=== PATIENT | female | born 1945 | race Asian ===

== ENCOUNTER 2016-06-07 10:18 | Outpatient (RCR) | payer OTHER ==
--- OUTSIDE RECORDS SUMMARY | 2016-03-29 08:52 | XMS REPORT | Continuity of Care Document ---
Author Author [facility] Organization [facility] Address Unknown Phone Unavailable Care Team Providers Care Surveyor Geophysical Prospecting Name Role Phone MANUEL CARVER MD PCP Insurance Providers Payer Name Policy Number Subscriber Name Relationship Self Pay Pending Linnea Apprv [id number] Anayeli Taylor 20 Self / Same As Patient Advance Directives Directive Response Recorded Date/Time Advance Directives Yes 12/04/14 9:20am Health Care Power of Wood Engraver Y son 12/04/14 9:20am Organ Donor No 12/04/14 9:20am Resuscitation Status Full Code 12/04/14 9:20am Problems No known problems or medical conditions. Medications Medication Dose Route Sig Days/Qty Instructions Order Date Discontinued Date Status Methimazole 10 Mg PO DAILY 10/16/14 Active Atenolol 25 Mg PO DAILY 10/16/14 Active Aspirin 81 Mg PO DAILY 10/16/14 Active Ranitidine Hcl 150 Mg PO TWICE A DAY 10/16/14 Active Timolol Maleate 1 Drop OU TWICE A DAY 10/16/14 Active Calcium Carbonate/Vitamin D3 1 Each PO DAILY 0 Qty 12/04/14 Active Lutein 20 Mg PO DAILY 0 Qty 12/04/14 Active Glucosa Short 2KCL/Chondroitin Short 1 Each PO DAILY 0 Qty 12/04/14 Active Social History Social History Problem Response Recorded Date/Time Alcohol Use Denies Use 12/04/2014 9:20am Recreational Drug Use No 12/04/2014 9:20am Recent Foreign Travel No 12/04/2014 9:20am Recent Infectious Disease Exposure No 12/04/2014 9:20am Hospitalization with Isolation Denies 12/04/2014 6:51pm Smoking Status Never a Smoker 12/04/2014 9:20am Query Response Start Date Stop Date Smoking Status Never a Smoker Hospital Discharge Instructions No hospital discharge instructions. Plan of Care No plan of care. Functional Status No functional status results. Allergies, Adverse Reactions, Alerts Allergen Type Severity Reaction Status Last Updated No Known Drug Allergies Active 10/16/14 Immunizations Name Given Type Date of Pneumonia Vaccine 04/27/11 Historical Vital Signs Acute Vital Signs Vital Response Date/Time Temperature (Fahrenheit) 97.8 degrees F (97.6 - 99.5) Temperature (Calculated Celsius) 36.01352 degrees C (36.4 - 37.5) Temperature Source Temporal Pulse Rate (adult) 66 bpm (60 - 90) Respiratory Rate 18 bpm (12 - 24) O2 Sat by Pulse Oximetry 94 % (88 - 100) Blood Pressure 153/79 mm Hg Pain Pain Intensity 1 Height (Feet) 5 feet Height (Inches) 5.00 inches Height (Calculated Centimeters) 165.673781 cm Weight (Pounds) 151 pounds Weight (Calculated Grams) 27958.449 gm Weight (Calculated Kilograms) 68.445339 kilograms Calculated BMI 25.12 Results No known relevant diagnostic tests, laboratory data and/or discharge summary. Procedures Procedure Status Date Provider(s) NEEDLE BIOPSY LYMPH NODES completed 11/11/14 VICKY VAZQUEZ MD Dissection of inguinal lymph node completed 12/04/14 FATEMEH PAYNE MD Encounters Encounter Location Date/Time Registered Surgical Day [facility] 12/04/14 9:04am Registered Clinic [facility] 11/11/14 12:37pm Registered Clinic [facility] 11/05/14 7:41am
[2016-03-29 09:26] LABS: BASOPHILS % (AUTO) 0 % (0-10); EOSINOPHILS # (AUTO) 0.1 10^3/uL (0.0-0.3); EOSINOPHILS % (AUTO) 2 % (0-10); LYMPHOCYTES # (AUTO) 1.4 X 10^3 (1.0-4.0); LYMPHOCYTES % (AUTO) 21 % (12-44); MEAN CORPUSCULAR HEMOGLOBIN 29 PG (25-34); MEAN CORPUSCULAR HGB CONC 34 G/DL (32-36); MEAN CORPUSCULAR VOLUME 83 FL (80-99); MEAN PLATELET VOLUME 9.8 FL (7.4-10.4); MONOCYTES # (AUTO) 0.6 X 10^3 (0.0-1.0); MONOCYTES % (AUTO) 9 % (0-12); NEUTROPHILS # (AUTO) 4.5 X 10^3 (1.8-7.8); NEUTROPHILS % (AUTO) 68 % (42-75); PLATELET COUNT 182 10^3/uL (130-400); RED BLOOD COUNT 4.97 10^6/uL (4.35-5.85); RED CELL DISTRIBUTION WIDTH 13.4 % (10.0-14.5); WHITE BLOOD COUNT 6.6 10^3/uL (4.3-11.0)
[2016-03-29 10:06] LABS: ALBUMIN 4.1 G/DL (3.2-4.5); BILIRUBIN,TOTAL 1.8 MG/DL (0.1-1.0); CALCIUM 9.2 MG/DL (8.5-10.1); CREATININE SERUM 1.03 MG/DL (0.60-1.30); POTASSIUM 3.8 MMOL/L (3.6-5.0); TOTAL PROTEIN 7.4 G/DL (6.4-8.2)
--- NOTE | 2016-03-29 10:14 | Diagnostic Imaging Report ---
INDICATION: History of lung cancer. Compared 01/13/2016. FINDINGS: Air trapping and nodular interstitial opacities bilaterally showed no change from multiple previous studies, believed scarring. A dominant mass or mass effect is not found. Hilar and mediastinal contours unremarkable. No effusion or pneumothorax. IMPRESSION: Somewhat nodular pattern of interstitial disease in this patient is unchanged from multiple priors, presumptively chronic. Dominant mass or change is not apparent. Dictated by: Dictated on workstation # [id number]
[2016-06-01 08:54] LABS: BASOPHILS % (AUTO) 0 % (0-10); EOSINOPHILS # (AUTO) 0.1 10^3/uL (0.0-0.3); EOSINOPHILS % (AUTO) 2 % (0-10); LYMPHOCYTES # (AUTO) 1.1 X 10^3 (1.0-4.0); LYMPHOCYTES % (AUTO) 18 % (12-44); MEAN CORPUSCULAR HEMOGLOBIN 29 PG (25-34); MEAN CORPUSCULAR HGB CONC 35 G/DL (32-36); MEAN CORPUSCULAR VOLUME 84 FL (80-99); MEAN PLATELET VOLUME 9.7 FL (7.4-10.4); MONOCYTES # (AUTO) 0.6 X 10^3 (0.0-1.0); MONOCYTES % (AUTO) 10 % (0-12); NEUTROPHILS # (AUTO) 4.1 X 10^3 (1.8-7.8); NEUTROPHILS % (AUTO) 70 % (42-75); PLATELET COUNT 192 10^3/uL (130-400); RED BLOOD COUNT 4.64 10^6/uL (4.35-5.85); RED CELL DISTRIBUTION WIDTH 13.5 % (10.0-14.5); WHITE BLOOD COUNT 5.9 10^3/uL (4.3-11.0)
[2016-06-01 09:40] LABS: ALANINE AMINOTRANSFERASE 11 U/L (0-55); ANION GAP 6 MMOL/L (5-14); ASPARTATE AMINO TRANSFERASE 18 U/L (5-34); BILIRUBIN,TOTAL 1.3 MG/DL (0.1-1.0); BLOOD UREA NITROGEN 18 MG/DL (7-18); BUN/CREATININE RATIO 21; CALCIUM 8.9 MG/DL (8.5-10.1); CARBON DIOXIDE 27 MMOL/L (21-32); CHLORIDE 108 MMOL/L (98-107); CREATININE SERUM 0.86 MG/DL (0.60-1.30); GFR ESTIMATED > 60; GLUCOSE 84 MG/DL (70-105); POTASSIUM 3.9 MMOL/L (3.6-5.0); SODIUM 141 MMOL/L (135-145)
[~2016-06-07 10:18] MED LIST: ASPI-892 PO; ATEN-147 PO; CALC-140 PO; GLUC-113 PO; GLUC-96 PO; LUTE20TA PO; NF-METHI10 PO; RANI150C11 PO; TML25OP25 OU
== END 2016-06-27 | disposition home or self-care (01) ==
LOC: ONC 10:18
PROVIDERS: ATTEND Internal Medicine Hematology & Oncology
DX: C34.81 Malignant neoplasm of overlapping sites of right bronchus and lung (principal); E05.00 Thyrotoxicosis with diffuse goiter without thyrotoxic crisis or storm; Z79.899 Other long term (current) drug therapy; Z23 Encounter for immunization
CPT/HCPCS: 36415; 71020; 80053; 85025; 90471; 99213

== ENCOUNTER → 2016-07-05 | Outpatient (CLI) | payer OTHER ==
--- OUTSIDE RECORDS SUMMARY | 2016-07-05 08:25 | XMS REPORT | Continuity of Care Document ---
Author Author [facility] Organization [facility] Address Unknown Phone Unavailable Care Team Providers Care Truck Service Technician Name Role Phone MANUEL CARVER MD PCP Insurance Providers Payer Name Policy Number Subscriber Name Relationship Self Pay Approved Full Linnea [id number] Anayeli Quintana 20 Self / Same As Patient Advance Directives Directive Response Recorded Date/Time Advance Directives Yes 12/12/14 1:30pm Health Care Power of Director Of Medical Education Y son 12/12/14 1:30pm Organ Donor No 12/12/14 1:30pm Problems No problem information available. Medications Current Home Medications Medication Dose Units Route Directions Days/Qty Instructions Start Date Methimazole 10 Mg 10 Mg Oral Daily 10/16/14 Atenolol 25 Mg 25 Mg Oral Daily 10/16/14 Ranitidine Hcl 150 Mg 150 Mg Oral Twice A Day 10/16/14 Timolol Maleate 15 Ml 1 Drop Each Eye Twice A Day 10/16/14 Calcium Carbonate/Vitamin D3 1 Each 1 Each Oral Daily 0 12/04/14 Lutein 20 Mg 20 Mg Oral Daily 0 12/04/14 Glucosa Short 2KCL/Chondroitin Short 1 Each 1 Each Oral Daily 0 12/04/14 Past Home Medications Medication Directions Ordered Status Aspirin 81 Mg Tabec, 81 Mg Oral Daily 10/16/14 Discontinued Social History Social History Problem Response Recorded Date/Time Alcohol Use Denies Use 12/04/2014 9:20am Recreational Drug Use No 12/04/2014 9:20am Recent Foreign Travel No 06/09/2016 12:39pm Hospital Discharge Instructions Current inpatient/outpatient. Discharge instructions are currently unavailable. Plan of Care Prescriptions Functional Status No functional status results. Allergies, Adverse Reactions, Alerts No known allergies. Immunizations No immunization records. Vital Signs No known vital signs results. Results Laboratory Results Test Name Result Units Flags Reference Collection Date/Time Result Date/ Time Comments White Blood Count 5.9 10^3/uL 4.3-11.0 06/01/2016 8:46am 06/01/2016 8: 56am Red Blood Count 4.64 10^6/uL 4.35-5.85 06/01/2016 8:46am 06/01/2016 8: 56am Hemoglobin 13.4 G/DL 11.5-16.0 06/01/2016 8:46am 06/01/2016 8:56am Hematocrit 39 % 35-52 06/01/2016 8:46am 06/01/2016 8:56am Mean Corpuscular Volume 84 FL 80-99 06/01/2016 8:46am 06/01/2016 8: 56am Mean Corpuscular Hemoglobin 29 PG 25-34 06/01/2016 8:46am 06/01/2016 8: 56am Mean Corpuscular Hemoglobin Concent 35 G/DL 32-36 06/01/2016 8:46am 11/2015 8:56am Red Cell Distribution Width 13.5 % 10.0-14.5 06/01/2016 8:46am 2015 8:56am Platelet Count 192 10^3/uL 130-400 06/01/2016 8:46am 06/01/2016 8:56am Mean Platelet Volume 9.7 FL 7.4-10.4 06/01/2016 8:46am 06/01/2016 8: 56am Neutrophils (%) (Auto) 70 % 42-75 06/01/2016 8:46am 06/01/2016 8:56am Lymphocytes (%) (Auto) 18 % 12-44 06/01/2016 8:46am 06/01/2016 8:56am Monocytes (%) (Auto) 10 % 0-12 06/01/2016 8:46am 06/01/2016 8:56am Eosinophils (%) (Auto) 2 % 0-10 06/01/2016 8:46am 06/01/2016 8:56am Basophils (%) (Auto) 0 % 0-10 06/01/2016 8:46am 06/01/2016 8:56am Neutrophils # (Auto) 4.1 X 10^3 1.8-7.8 06/01/2016 8:46am 06/01/2016 8: 56am Lymphocytes # (Auto) 1.1 X 10^3 1.0-4.0 06/01/2016 8:46am 06/01/2016 8: 56am Monocytes # (Auto) 0.6 X 10^3 0.0-1.0 06/01/2016 8:46am 06/01/2016 8: 56am Eosinophils # (Auto) 0.1 10^3/uL 0.0-0.3 06/01/2016 8:46am 06/01/2016 8 :56am Basophils # (Auto) 0.0 10^3/uL 0.0-0.1 06/01/2016 8:46am 06/01/2016 8: 56am Sodium Level 141 MMOL/L 135-145 06/01/2016 8:46am 06/01/2016 9:41am Potassium Level 3.9 MMOL/L 3.6-5.0 06/01/2016 8:46am 06/01/2016 9:41am Chloride Level 108 MMOL/L H 98-107 06/01/2016 8:46am 06/01/2016 9:41am Carbon Dioxide Level 27 MMOL/L 21-32 06/01/2016 8:46am 06/01/2016 9: 41am Anion Gap 6 MMOL/L 5-14 06/01/2016 8:46am 06/01/2016 9:41am Blood Urea Nitrogen 18 MG/DL 7-18 06/01/2016 8:46am 06/01/2016 9:41am Creatinine 0.86 MG/DL 0.60-1.30 06/01/2016 8:46am 06/01/2016 9:41am BUN/Creatinine Ratio 21 06/01/2016 8:46am 06/01/2016 9:41am Estimat Glomerular Filtration Rate > 60 06/01/2016 8:46am 2015 9:41am GFR INTERPRETIVE DATA UNITS FOR ESTIMATED GFR (eGFR): mL/min/1.73 M2 REFERENCE RANGE FOR ESTIMATED GFR (eGFR) eGFR NORMAL eGFR >60 MODERATELY DECREASED eGFR 30-59 SEVERLY DECREASED eGFR 15-29 KIDNEY FAILURE <15 (OR DIALYSIS) Glucose Level 84 MG/DL 70-105 06/01/2016 8:46am 06/01/2016 9:41am Calcium Level 8.9 MG/DL 8.5-10.1 06/01/2016 8:46am 06/01/2016 9:41am Total Bilirubin 1.3 MG/DL H 0.1-1.0 06/01/2016 8:46am 06/01/2016 9:41am Alkaline Phosphatase 80 U/L 40-136 06/01/2016 8:46am 06/01/2016 9:41am Aspartate Amino Transf (AST/SGOT) 18 U/L 5-34 06/01/2016 8:46am 2015 9:41am Alanine Aminotransferase (ALT/SGPT) 11 U/L 0-55 06/01/2016 8:46am 06/01 9:41am Total Protein 7.0 G/DL 6.4-8.2 06/01/2016 8:46am 06/01/2016 9:41am Albumin 4.0 G/DL 3.2-4.5 06/01/2016 8:46am 06/01/2016 9:41am Procedures No known history of procedures. Encounters Encounter Location Arrival/Admit Date Discharge/Depart Date Attending Provider Registered Clinic [facility] 06/09/16 12:41pm SANTIAGO GARZA Discharged Recurring [facility] 06/07/16 10:18am 11:59pm SANTIAGO GARZA Registered Clinic [facility] 06/04/16 11:00am MARTIN MUHAMMAD
== END ==
LOC: LAB 08:21
PROVIDERS: ATTEND Internal Medicine Endocrinology, Diabetes & Metabolism
DX: E05.00 Thyrotoxicosis with diffuse goiter without thyrotoxic crisis or storm (principal)
CPT/HCPCS: 36415; 84443

== ENCOUNTER → 2016-09-02 | Outpatient (CLI) | payer OTHER ==
[~2016-09-02] MED LIST changes: +BARIUM SUSPENSION 2.1% (VANILLA SILQ) 450 ML PO ONE; +CATHETER FLUSH 10 ML SYR IV PRN; +IOHEXOL 350 MG/ML 100 ML (OMNIPAQUE 350) VIAL IV ONE; +NS 100 ML (IVPB) BAG IV ONE
--- OUTSIDE RECORDS SUMMARY | 2016-09-02 10:30 | XMS REPORT | Continuity of Care Document ---
Author Author [facility] Organization [facility] Address Unknown Phone Unavailable Care Team Providers Care Chemist Food Name Role Phone MANUEL CARVER MD PCP Insurance Providers Payer Name Policy Number Subscriber Name Relationship Self Pay Approved Full Linnea [id number] Anayeli Quintana 20 Self / Same As Patient Advance Directives Directive Response Recorded Date/Time Advance Directives Yes 12/12/14 1:30pm Health Care Power of Lens Blank Gauger Y son 12/12/14 1:30pm Organ Donor No [...] Discharge/Depart Date Attending Provider Registered Clinic [facility] 06/09/16 12:41pm SANTIAGO GARZA Discharged Recurring [facility] 06/07/16 10:18am 11:59pm SANTIAGO GARZA Registered Clinic [facility] 06/04/16 11:00am MARTIN MUHAMMAD
[2016-09-02] MEDS: CATHETER FLUSH 10 ML SYR IV PRN ×2 (10:50→10:59)
--- NOTE | 2016-09-02 16:43 | Diagnostic Imaging Report ---
PROCEDURE: CT chest and abdomen with contrast. TECHNIQUE: Multiple contiguous axial images were obtained through the chest and abdomen after the administration of intravenous contrast. INDICATION: History of lung cancer. COMPARISON: Study compared with an exam dated 06/04/2016. FINDINGS: Chest: Bilateral lung nodularity has shown further progression. Adjacent nodules or bilobed mass in the right upper lobe abuts the pleura anterolaterally measuring a long axis 2.5 cm today, previously 2.1 cm. A right upper lobe mass just posterior to the right mainstem bronchus today is 3.2 x 2.1 cm, previously 2.4 x 2.0 cm. Additional smaller masses show similar increases in size and few new lesions are present. Sub-solid groundglass nodule in the left lower lobe with some central cavitation unchanged at 1.6 cm. We again note no pathological appearing axillary, hilar, or mediastinal lymph nodes. There are no pulmonary arterial filling defects. There is no pleural or pericardial effusion. There is no destructive soft tissue or osseous chest wall pathology. Abdomen and pelvis: Hyperenhancing nodule in the lateral sector left hepatic lobe measures a diameter of about 1.3 cm and is not convincingly changed. An additional questionable hyperenhancing nodule at the dynamic phase in the caudal aspect of the right lobe of the liver at 7 mm may be present retrospectively on prior and this may be a normal vascular channel. Cyst in the right hepatic lobe at the dome unchanged. No definite new hepatic disease. No biliary abnormality. The adrenal glands remain stable and negative. The pancreas has an unremarkable appearance. The unobstructed kidneys are normal. The nonfocal spleen remains normal in size. No abdominal mesenteric or retroperitoneal adenopathy. No abdominal ascites. IMPRESSION: Chest: Further increase in number and size of multiple bilateral pulmonary nodules without thoracic adenopathy, chest wall lesion, or effusion. Abdomen: Stable left hepatic lobe enhancing nodularity, questionable similar appearing focus in the right hepatic lobe inferiorly not definitely changed. These are of uncertain significance and etiology. Negative adrenals. No upper abdominal adenopathy. Stable benign liver cyst. Dictated by: Dictated on workstation # [id number]
--- NOTE | 2016-09-02 19:46 | Diagnostic Imaging Report ---
EXAMINATION: Whole body bone Scan. INDICATION: Lung cancer. TECHNIQUE: This study was performed following administration of 25.8 mCi of 99m-technetium MDP. Anterior and posterior whole body images were obtained as well as spot films of the skull and thorax. FINDINGS: The previous whole body bone scan exam performed on 06/04/2016 failed to show any sign of metastatic disease. On this exam, there is still no abnormal uptake identified to indicate metastatic disease. As noted on the prior study, there are small foci of slight increased activity in the region of each patella. Most likely, this is degenerative in nature. Both kidneys do show excretion of the radiotracer. IMPRESSION: The appearance of the bone scan is stable when compared to the prior exam. There is no evidence for metastatic disease or for an acute bony abnormality. Dictated by: Dictated on workstation # [id number]
== END ==
LOC: CARD 10:26
PROVIDERS: ATTEND Internal Medicine Hematology & Oncology
DX: C34.81 Malignant neoplasm of overlapping sites of right bronchus and lung (principal)
CPT/HCPCS: 71260; 74160; 78306

== ENCOUNTER 2016-09-16 09:01 | Day surgery (SDC) | payer OTHER ==
[~2016-09-16] VITALS: Ht 160 cm; Wt 69.9 kg
[2016-09-16] VITALS (15 sets, daily range): BP systolic 114–167; BP diastolic 55–84
[~2016-09-16 09:01] MED LIST changes: -BARIUM SUSPENSION 2.1% (VANILLA SILQ) 450 ML PO ONE; -CATHETER FLUSH 10 ML SYR IV PRN; -IOHEXOL 350 MG/ML 100 ML (OMNIPAQUE 350) VIAL IV ONE; -NS 100 ML (IVPB) BAG IV ONE
[2016-09-16] MEDS ORDERED: LIDOCAINE 1% INJ 20 ML (XYLOCAINE) VIAL ONE (09:36)
[2016-09-16] MEDS ORDERED: fentaNYL INJECTION 100 MCG/2 ML AMP ONE (09:36)
[2016-09-16 09:51] LABS: MEAN PLATELET VOLUME 10.1 FL (7.4-10.4); RED BLOOD COUNT 4.69 10^6/uL (4.35-5.85); RED CELL DISTRIBUTION WIDTH 13.6 % (10.0-14.5); WHITE BLOOD COUNT 7.1 10^3/uL (4.3-11.0)
[2016-09-16 10:05] LABS: PROTHROMBIN TIME PATIENT 12.8 SEC (12.2-14.7)
[2016-09-16] MEDS ORDERED: fentaNYL INJECTION 100 MCG/2 ML AMP IVP PRN (11:30)
[2016-09-16] MEDS ORDERED: LIDOCAINE 1% INJ 20 ML (XYLOCAINE) VIAL INJ ONE (11:30)
[2016-09-16] MEDS ORDERED: HYDROcodone/APAP 5 MG/325 MG (LORTAB) TAB PO PRN (11:30)
--- NOTE | 2016-09-16 11:40 | Discharge Instructions ---
Discharge Instructions Home Medicaitons Changes Hold any current blood thinner home medications for [24 hours]. VICKY VAZQUEZ MD Sep 16, 2016 11:40
--- NOTE | 2016-09-16 12:33 | Diagnostic Imaging Report ---
EXAMINATION: CT-guided biopsy-lung. INDICATION: multiple bilateral pulmonary nodules. Current history and physical and other medical records are reviewed prior to the procedure. CONSENT: Informed consent was obtained from the patient. The risks, benefits, potential complications and alternatives were reviewed and all questions answered to the patient's satisfaction. The patient's vital signs, cardiac rhythm, and pulse oximetry were observed throughout the procedure by qualified nursing personnel. Sedation/medications: none. FINDINGS: Right upper lobe enlarging nodule. PROCEDURE: After maximal sterile barrier technique preparation and draping, 1% lidocaine was utilized for local anesthesia. With the patient in supine position, and via anterior intercostal approach, a 19-gauge guide needle is introduced into the right upper lobe under CT scan guidance. After confirming adequate positioning with saved CT images, multiple 20 gauge core biopsy specimens were obtained. Autologous blood patch 3 cc injected in the tract as the guide needle was removed. The patient tolerated the procedure well with very small asymptomatic pneumothorax seen on post biopsy images. Chest x-ray follow up will be obtained. IMPRESSION: Successful CT-guided biopsy of right upper lobe enlarging nodule. Very small asymptomatic pneumothorax seen on post biopsy images. Chest x-ray follow up will be obtained. Dictated by: Dictated on workstation # [id number]
--- NOTE | 2016-09-16 13:45 | Diagnostic Imaging Report ---
Portable expiratory view of the chest. INDICATION: Post lung biopsy. History of metastatic lung cancer. FINDINGS: There are multiple lung masses and nodules seen with dominant right suprahilar region measuring 2.8 cm noted. There is increased surrounding density around the lesion probably related to postbiopsy changes. There is no pneumothorax. The heart size is mildly enlarged. No significant effusion. There is prominence of the right hilar region probably related to posterior perihilar mass better seen on CT scan. IMPRESSION: Numerous lung metastases. No pneumothorax. Dictated by: Dictated on workstation # [id number]
--- OUTSIDE RECORDS SUMMARY | 2016-09-19 08:34 | XMS REPORT | Continuity of Care Document ---
Author Author Via [facility] Organization [facility] Address Unknown Phone Unavailable Allergies Active Description Code Type Severity Reaction Onset Reported/Identified Relationship to Patient Clinical Status Yes No Known Drug Allergies [id number] Drug Allergy Unknown N/ A 10/16/2014 Medications Problems Date Dx Coded Attending Type Code Diagnosis Diagnosed By 10/16/2014 MANUEL CARVER MD Ot V76.12 10/16/2014 CHANEL TOMLINSON MD Ot 242.00 10/16/2014 CHANEL TOMLINSON MD Ot 401.9 10/16/2014 CHANEL TOMLINSON MD Ot 729.5 10/16/2014 CHANEL TOMLINSON MD Ot 785.1 10/16/2014 CHANEL TOMLINSON MD Ot 786.05 10/16/2014 CHANEL TOMLINSON MD Ot 786.09 10/16/2014 CHANEL TOMLINSON MD Ot V12.51 10/16/2014 CHANEL TOMLINSON MD Ot 242.00 10/16/2014 CHANEL TOMLINSON MD Ot 453.40 10/16/2014 CHANEL TOMLINSON MD Ot 785.1 10/16/2014 CHANEL TOMLINSON MD Ot 786.05 10/16/2014 CHANEL TOMLINSON MD Ot 242.00 10/16/2014 CHANEL TOMLINSON MD Ot 401.9 10/16/2014 CHANEL TOMLINSON MD Ot 729.5 10/16/2014 CHANEL TOMLINSON MD Ot 785.1 10/16/2014 CHANEL TOMLINSON MD Ot 786.05 10/16/2014 CHANEL TOMLINSON MD Ot 786.09 10/16/2014 CHANEL TOMLINSON MD Ot V12.51 10/16/2014 CHANEL TOMLINSON MD Ot 242.00 10/16/2014 CHANEL TOMLINSON MD Ot 453.40 10/16/2014 CHANEL TOMLINSON MD Ot 785.1 10/16/2014 CHANEL TOMLINSON MD Ot 786.05 10/16/2014 CHANEL TOMLINSON MD Ot 242.00 10/16/2014 CHANEL TOMLINSON MD Ot 453.40 10/16/2014 CHANEL TOMLINSON MD Ot 785.1 10/16/2014 CHANEL TOMLINSON MD Ot 786.05 10/16/2014 CHANEL TOMLINSON MD Ot 246.8 DISORDERS OF THYROID NEC 10/16/2014 CHANEL TOMLINSON MD Ot 414.01 CORONARY ATHEROSCLEROSIS OF [place] CORON 10/16/2014 CHANEL TOMLINSON MD Ot 416.8 CHR PULMON HEART DIS NEC 10/16/2014 CHANEL TOMLINSON MD Ot 427.69 PREMATURE BEATS NEC 10/16/2014 CHANEL TOMLINSON MD Ot 780.2 SYNCOPE AND COLLAPSE 10/16/2014 CHANEL TOMLINSON MD Ot 786.09 RESPIRATORY ABNORM NEC 10/16/2014 CHANEL TOMLINSON MD Ot V12.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 10/16/2014 CHANEL TOMLINSON MD Ot V58.69 [facility],LT,CURRENT USE 10/16/2014 MEHUL SMITH, MANUEL Amaral Ot V76.12 10/16/2014 CHANEL TOMLINSON MD Ot 242.00 10/16/2014 CHANEL TOMLINSON MD Ot 401.9 10/16/2014 CHANEL TOMLINSON MD Ot 729.5 10/16/2014 CHANEL TOMLINSON MD Ot 785.1 10/16/2014 CHANEL TOMLINSON MD Ot 786.05 10/16/2014 CHANEL TOMLINSON MD Ot 786.09 10/16/2014 CHANEL TOMLINSON MD Ot V12.51 10/16/2014 CHANEL TOMLINSON MD Ot 242.00 10/16/2014 CHANEL TOMLINSON MD Ot 453.40 10/16/2014 CHANEL TOMLINSON MD Ot 785.1 10/16/2014 CHANEL TOMLINSON MD Ot 786.05 10/16/2014 CHANEL TOMLINSON MD Ot 242.00 10/16/2014 CHANEL TOMLINSON MD Ot 401.9 10/16/2014 CHANEL TOMLINSON MD Ot 729.5 10/16/2014 DAVI SMITH, CHANEL Landin Ot 785.1 10/16/2014 DAVI SMITH, CHANEL Landin Ot 786.05 10/16/2014 DAVI SMITH, CHANEL Landin Ot 786.09 10/16/2014 DAVI SMITH, CHANEL Landin Ot V12.51 10/16/2014 DAVI SMITH, CHANEL Landin Ot 242.00 10/16/2014 DAVI SMITH, CHANEL Landin Ot 453.40 10/16/2014 DAVI SMITH, CHANEL Landin Ot 785.1 10/16/2014 DAVI SMITH, CHANEL Landin Ot 786.05 11/07/2014 KAYLIE HAMPTON DO M Ot 162.9 11/07/2014 MEHLU SMITH, MANUEL Amaral Ot V76.12 11/07/2014 DAVI SMITH, CHANEL Landin Ot 242.00 11/07/2014 DAVI SMITH, CHANEL Landin Ot 401.9 11/07/2014 DAVI SMITH, CHANEL Landin Ot 729.5 11/07/2014 DAVI SMITH, CHANEL Landin Ot 785.1 11/07/2014 DAVI SMITH, CHANEL Landin Ot 786.05 11/07/2014 DAVI SMITH, CHANEL Landin Ot 786.09 11/07/2014 DAVI SMITH, CHANEL Landin Ot V12.51 11/07/2014 DAVI SMITH, CHANEL Landin Ot 242.00 11/07/2014 DAVI SMITH, CHANEL Landin Ot 453.40 11/07/2014 DAVI SMITH, CHANEL Landin Ot 785.1 11/07/2014 ADVI SMITH, CHANEL Landin Ot 786.05 11/07/2014 KAYLIE HAMPTON DO M Ot 416.8 11/07/2014 DALILA HAMPTON DOSON M Ot 453.40 11/07/2014 DALILA HAMPTON DOSON M Ot 786.05 11/07/2014 DALILA HAMPTON DOSON M Ot 793.19 11/07/2014 DALILA HAMPTON DOSON M Ot 162.9 11/15/2014 DALILA HAMPTON DOSON M Ot 786.05 11/15/2014 KAYLIE HAMPTON DO M Ot 786.6 11/27/2014 MEHUL SMITH, MANUEL Amaral Ot V76.12 11/27/2014 DAVI SMITH, CHANEL Landin Ot 242.00 11/27/2014 CHANEL TOMLINSON MD Ot 401.9 11/27/2014 DAVI SMITH, CHANEL Landin Ot 729.5 11/27/2014 DAVI SMITH, CHANEL Landin Ot 785.1 11/27/2014 DAVI SMITH, CHANEL Landin Ot 786.05 11/27/2014 DAVI SMITH, CHANEL Landin Ot 786.09 11/27/2014 DAVI SMITH, CHANEL Landin Ot V12.51 11/27/2014 DAVI SMITH, CHANEL Landin Ot 242.00 11/27/2014 DAVI SMITH, CHANEL Landin Ot 453.40 11/27/2014 DAVI SMITH, CHANEL Landin Ot 785.1 11/27/2014 DAVI SMITH, CHANEL Landin Ot 786.05 11/27/2014 KAYLIE HAMPTON DO Ot 416.8 11/27/2014 KAYLIE HAMPTON DO M Ot 453.40 11/27/2014 KAYLIE HAMPTON DO M Ot 786.05 11/27/2014 KAYLIE HAMPTON DO M Ot 793.19 11/27/2014 KAYLIE HAMPTON DO M Ot 162.9 11/27/2014 DALILA HAMPTON DOSON M Ot 786.05 11/27/2014 DALILA HAMPTON DOSON M Ot 786.6 12/02/2014 DALILA HAMPTON DOSON M Ot 786.05 12/02/2014 KAYLIE HAMPTON DO M Ot 786.6 12/03/2014 DALILA HAMPTON DOSON M Ot 786.05 12/03/2014 DALILA HAMPTON DOSON M Ot 786.6 12/04/2014 MANUEL CARVER MD Ot V76.12 12/04/2014 DAVI MSITH, CHANEL Landin Ot 242.00 12/04/2014 DAVI SMITH, CHANEL Landin Ot 401.9 12/04/2014 DAVI SMITH, CHANEL Landin Ot 729.5 12/04/2014 DAVI SMITH, CHANEL Landin Ot 785.1 12/04/2014 DAVI SMITH, CHANEL Landin Ot 786.05 12/04/2014 DAVI SMITH, CHANEL Landin Ot 786.09 12/04/2014 DAVI SMITH, CHANEL Landin Ot V12.51 12/04/2014 DAVI SMITH, CHANEL Landin Ot 242.00 12/04/2014 DAVI SMITH, CHANEL Landin Ot 453.40 12/04/2014 DAVI SMITH, CHANEL Landin Ot 785.1 12/04/2014 DAVI SMITH, CHANEL J Ot 786.05 12/04/2014 MEMO DO, KAYLIE M Ot 416.8 12/04/2014 MEMO DO, KAYLIE M Ot 453.40 12/04/2014 MEMO DO, KAYLIE M Ot 786.05 12/04/2014 MEMO DO, KAYLIE M Ot 793.19 12/04/2014 MEMO DO, KAYLIE M Ot 162.9 12/04/2014 MEMO DO, KAYLIE M Ot 786.05 12/04/2014 MEMO DO, KAYLIE M Ot 786.6 12/04/2014 MEHUL SMITH, MANUEL Amaral Ot V76.12 12/04/2014 DAVI SMITH, CHANEL J Ot 242.00 12/04/2014 DAVI SMITH, CHANEL J Ot 401.9 12/04/2014 DAVI SMITH, CHANEL J Ot 729.5 12/04/2014 DAVI SMITH, CHANEL J Ot 785.1 12/04/2014 DAVI SMITH, CHANEL J Ot 786.05 12/04/2014 DAVI SMITH, CHANEL J Ot 786.09 12/04/2014 DAVI SMITH, CHANEL J Ot V12.51 12/04/2014 DAVI SMITH, CHANEL J Ot 242.00 12/04/2014 DAVI SMITH, CHANEL J Ot 453.40 12/04/2014 DAVI SMITH, CHANEL J Ot 785.1 12/04/2014 DAVI SMITH, CHANEL J Ot 786.05 12/04/2014 MEMO DO, KAYLIE M Ot 416.8 12/04/2014 MEMO DO, KAYLIE M Ot 453.40 12/04/2014 MEMO DO, KAYLIE M Ot 786.05 12/04/2014 MEMO DO, KAYLIE M Ot 793.19 12/04/2014 MEMO DO, KAYLIE M Ot 162.9 12/04/2014 MEMO DO, KAYLIE M Ot 786.05 12/04/2014 MEMO DO, KAYLIE M Ot 786.6 12/04/2014 ELMER SMITH, FATEMEH Lawrence Ot 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 12/10/2014 MEHUL SMITH, MANUEL Amaral Ot V76.12 12/10/2014 DAVI SMITH, CHANEL Landin Ot 242.00 12/10/2014 DAVI SMITH, CHANEL Landin Ot 401.9 12/10/2014 DAVI SMITH, CHANEL Landin Ot 729.5 12/10/2014 DAVI SMITH, CHANEL Landin Ot 785.1 12/10/2014 DAVI SMITH, CHANEL Landin Ot 786.05 12/10/2014 DAVI SMITH, CHANEL Landin Ot 786.09 12/10/2014 DAVI SMITH, CHANEL Landin Ot V12.51 12/10/2014 DAVI SMITH, CHANEL Landin Ot 242.00 12/10/2014 DAVI SMITH, CHANEL Landin Ot 453.40 12/10/2014 DAVI SMITH, CHANEL Landin Ot 785.1 12/10/2014 DAVI SMITH, CHANEL Landin Ot 786.05 12/10/2014 KAYLIE HAMPTON DO Ot 416.8 12/10/2014 KAYLIE HAMPTON DO Ot 453.40 12/10/2014 KAYLIE HAMPTON DO Ot 786.05 12/10/2014 KAYLIE HAMPTON DO Ot 793.19 12/10/2014 KAYLIE HAMPTON DO Ot 162.9 12/10/2014 KAYLIE HAMPTON DO Ot 786.05 12/10/2014 KAYLIE HAMPTON DO Ot 786.6 12/12/2014 SANTIAGO GARZA Ot 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 12/12/2014 SANTIAGO GARZA Ot 785.6 ENLARGEMENT LYMPH NODES 12/13/2014 KAYLIE HAMPTON DO Ot 416.8 12/13/2014 KAYLIE HAMPTON DO Ot 453.40 12/13/2014 KAYLIE HAMPTON DO Ot 786.05 12/13/2014 KAYLIE HAMPTON DO Ot 793.19 12/13/2014 SANTIAGO GARZA N Ot 162.9 12/13/2014 SANTIAGO GARZA Ot 242.00 12/13/2014 SANTIAGO GARZA Ot 416.8 12/13/2014 SANTIAGO GARZA Ot V58.69 12/13/2014 KAYLIE HAMPTON DO Ot 786.05 12/13/2014 KAYLIE HAMPTON DO Ot 786.6 12/13/2014 KAYLIE HAMPTON DO Ot 162.9 12/13/2014 DAVI SMITH, CHANEL J Ot 242.00 12/13/2014 DAVI MSITH, CHANEL J Ot 401.9 12/13/2014 DAVI SMITH, CHANEL J Ot 729.5 12/13/2014 DAVI SMITH, CHANEL J Ot 785.1 12/13/2014 DAVI SMITH, CHANEL J Ot 786.05 12/13/2014 DAVI SMITH, HCANEL J Ot 786.09 12/13/2014 DAVI SMITH, CHANEL J Ot V12.51 12/13/2014 DAVI SMITH, BASHAR J Ot 242.00 12/13/2014 DAVI SMITH, CHANEL J Ot 453.40 12/13/2014 DAVI SMITH, CHANEL J Ot 785.1 12/13/2014 DAVI SMITH, CHANEL J Ot 786.05 12/19/2014 DAVI SMITH, CHANEL J Ot 242.00 12/19/2014 DAVI SMITH, CHANEL J Ot 401.9 12/19/2014 DAVI SMITH, CHANEL J Ot 729.5 12/19/2014 DAVI SMITH, CHANEL J Ot 785.1 12/19/2014 DAVI SMITH, CHANEL J Ot 786.05 12/19/2014 DAVI SMITH, CHANEL J Ot 786.09 12/19/2014 DAVI SMITH, CHNAEL J Ot V12.51 12/19/2014 DAVI SMITH, CHANEL J Ot 242.00 12/19/2014 DAVI SMITH, CHANEL J Ot 453.40 12/19/2014 DAVI SMITH, CHANEL J Ot 785.1 12/19/2014 DAVI SMITH, CHANEL J Ot 786.05 12/19/2014 KAYLIE HAMPTON DO Ot 416.8 12/19/2014 KAYLIE HAMPTON DO Ot 453.40 12/19/2014 KAYLIE HAMPTON DO Ot 786.05 12/19/2014 KAYLIE HAMPTON DO Ot 793.19 12/19/2014 KAYLIE HAMPTON DO Ot 162.9 12/19/2014 KAYLIE HAMPTON DO Ot 786.05 12/19/2014 KAYLIE HAMPTON DO M Ot 786.6 01/16/2015 SANTIAGO GARZA N Ot 162.9 01/22/2015 KAYLA, BOBAN N Ot 162.9 01/31/2015 KAYLA, BOBAN N Ot 162.9 01/31/2015 KAYLA, BOBAN N Ot 242.00 01/31/2015 KAYLA, BOBAN N Ot 416.8 01/31/2015 KAYLA, BOBAN N Ot V58.69 03/10/2015 KAYLA, BOBAN N Ot 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 03/10/2015 KAYLA, BOBAN N Ot 242.00 TOX DIF GOITER NO CRISIS 03/10/2015 KAYLA, BOBAN N Ot 416.8 CHR PULMON HEART DIS NEC 03/10/2015 KAYLA, BOBAN N Ot V58.69 OTH MED,LT,CURRENT USE 03/13/2015 KAYLA, BOBAN N Ot 162.9 03/13/2015 KAYLA, BOBAN N Ot 242.00 03/13/2015 KAYLA, BOBAN N Ot 416.8 03/13/2015 KAYLA, BOBAN N Ot V58.69 03/26/2015 KAYLA, BOBAN N Ot 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 03/26/2015 KAYLA, BOBAN N Ot 242.00 TOX DIF GOITER NO CRISIS 03/26/2015 KAYLA, BOBAN N Ot 416.8 CHR PULMON HEART DIS NEC 03/26/2015 KAYLA, BOBAN N Ot V58.69 OTH MED,LT,CURRENT USE 03/27/2015 KAYLA, BOBAN N Ot 162.9 03/27/2015 KAYLA, BOBAN N Ot 242.00 03/27/2015 KAYLA, BOBAN N Ot 416.8 03/27/2015 KAYLA, BOBAN N Ot V58.69 05/05/2015 KAYLA, BOBAN N Ot 162.9 05/05/2015 KAYLA, BOBAN N Ot 242.00 05/05/2015 KAYLA, BOBAN N Ot 416.8 05/05/2015 KAYLA, BOBAN N Ot V58.69 05/09/2015 MEHUL SMITH, MANUEL Amaral Ot V76.12 05/09/2015 DAVI SMITH, CHANEL Landin Ot 242.00 05/09/2015 DAVI SMITH, CHANEL Landin Ot 401.9 05/09/2015 DAVI SMITH, CHANEL Landin Ot 729.5 05/09/2015 DAVI SMITH, CHANEL Landin Ot 785.1 05/09/2015 DAVI SMITH, CHANEL Landin Ot 786.05 05/09/2015 DAVI SMITH, CHANEL Landin Ot 786.09 05/09/2015 DAVI SMITH, CHANEL Landin Ot V12.51 05/09/2015 DAVI SMITH, CHANEL Landin Ot 242.00 05/09/2015 DAVI SMITH, CHANEL Landin Ot 453.40 05/09/2015 DAVI SMITH, CHANEL Landin Ot 785.1 05/09/2015 DAVI SMITH, CHANEL Landin Ot 786.05 05/09/2015 KAYLIE HAMPTON DO Ot 416.8 05/09/2015 KAYLIE HAMPTON DO M Ot 453.40 05/09/2015 DALILA HAMPTON DOSON M Ot 786.05 05/09/2015 KAYLIE HAMPTON DO M Ot 793.19 05/09/2015 DALILA HAMPTON DOSON M Ot 162.9 05/09/2015 DALILA HAMPTON DOSON M Ot 786.05 05/09/2015 DALILA HAMPTON DOSON M Ot 786.6 05/09/2015 SANTIAGO GARZA Ot 162.9 05/09/2015 MARTIN MUHAMMAD DIRECTOR OF RADIOLOGY Ot 162.9 05/09/2015 MARTIN MUHAMMAD DIRECTOR OF RADIOLOGY Ot 196.9 05/09/2015 MARTIN MUHAMMAD DIRECTOR OF RADIOLOGY Ot 242.00 05/09/2015 MARTIN MUHAMMAD DIRECTOR OF RADIOLOGY Ot V58.69 05/09/2015 SANTIAGO GARZA Ot C34.90 05/09/2015 SANTIAGO GARZA Ot E05.00 05/09/2015 SANTIAGO GARZA Ot Z79.899 05/09/2015 MARTIN MUHAMMAD DIRECTOR OF RADIOLOGY Ot C34.90 05/09/2015 MARTIN MUHAMMAD DIRECTOR OF RADIOLOGY Ot E05.00 05/09/2015 MARTIN MUHAMMAD DIRECTOR OF RADIOLOGY Ot Z79.899 05/26/2015 RADHA HALL DO Ot E05.00 05/26/2015 RADHA HALL DO Ot R25.2 06/17/2015 MARTIN MUHAMMAD DIRECTOR OF RADIOLOGY Ot 162.9 06/17/2015 MARTIN MUHAMMAD DIRECTOR OF RADIOLOGY Ot 196.9 06/17/2015 MARTIN MUHAMMAD DIRECTOR OF RADIOLOGY Ot 242.00 06/17/2015 MARTIN MUHAMMAD S DIRECTOR OF RADIOLOGY Ot V58.69 06/17/2015 SANTIAGO GARZA N Ot C34.90 06/17/2015 SANTIAGO GARZA N Ot E05.00 06/17/2015 SANTIAGO GARZA N Ot Z79.899 06/17/2015 MARTIN MUHAMMAD S DIRECTOR OF RADIOLOGY Ot C34.90 06/17/2015 MARTIN MUHAMMAD S DIRECTOR OF RADIOLOGY Ot E05.00 06/17/2015 MARTIN MUHAMMAD S DIRECTOR OF RADIOLOGY Ot Z79.899 06/17/2015 MACOMB DO, RADHA L Ot E05.00 06/17/2015 MACOMB , RADHA L Ot E05.00 06/17/2015 [facility], RADHA L Ot R25.2 06/17/2015 SANTIAGO GARZA N Ot C34.81 06/25/2015 MARTIN MUHAMMAD S DIRECTOR OF RADIOLOGY Ot 162.9 06/25/2015 MARTIN MUHAMMDA S DIRECTOR OF RADIOLOGY Ot 196.9 06/25/2015 MARTIN MUHAMMAD S DIRECTOR OF RADIOLOGY Ot 242.00 06/25/2015 MARTIN MUHAMMAD S DIRECTOR OF RADIOLOGY Ot V58.69 06/25/2015 KELLEE GARZAMEENAKSHI N Ot C34.90 06/25/2015 SANTIAGO GARZA N Ot E05.00 06/25/2015 SANTIAGO GARZA N Ot Z79.899 06/25/2015 MARTIN MUHAMMAD S DIRECTOR OF RADIOLOGY Ot C34.90 06/25/2015 MARTIN MUHAMMAD S DIRECTOR OF RADIOLOGY Ot E05.00 06/25/2015 MARTIN MUHAMMAD S DIRECTOR OF RADIOLOGY Ot Z79.899 06/25/2015 MACOMB DO, RADHA L Ot E05.00 06/25/2015 MACOMB DO, RADHA L Ot E05.00 06/25/2015 MACOMB , RADHA L Ot R25.2 06/25/2015 KELLEE GARZAMEENAKSHI N Ot C34.81 06/26/2015 KAYLA SANTIAGO N Ot 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 06/26/2015 SANTIAGO GARZA N Ot E05.00 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 06/26/2015 SANTIAGO GARZA Cristin Ot Z79.899 OTHER SENIOR CARE (CURRENT) DRUG THERAPY 07/04/2015 MEHUL SMITH, MANUEL N Ot V76.12 07/04/2015 DAVI SMITH, CHANEL Landin Ot 242.00 07/04/2015 DAVI SMITH, CHANEL J Ot 401.9 07/04/2015 DAVI SMITH, CHANEL J Ot 729.5 07/04/2015 DAVI SMITH, CHANEL Landin Ot 785.1 07/04/2015 DAVI SMITH, CHANEL Landin Ot 786.05 07/04/2015 DAVI SMITH, CHANEL Landin Ot 786.09 07/04/2015 DAVI SMITH, CHANEL Landin Ot V12.51 07/04/2015 DAVI SMITH, CHANEL Landin Ot 242.00 07/04/2015 DAVI SMITH, CHANEL Landin Ot 453.40 07/04/2015 DAVI SMITH, CHANEL Landin Ot 785.1 07/04/2015 DAVI SMITH, CHANEL Landin Ot 786.05 07/04/2015 KAYLIE HAMPTON DO Ot 416.8 07/04/2015 KAYLIE HAMPTON DO M Ot 453.40 07/04/2015 KAYLIE HAMPTON DO M Ot 786.05 07/04/2015 KAYLIE HAMPTON DO Ot 793.19 07/04/2015 KAYLIE HAMPTON DO Ot 162.9 07/04/2015 KAYLIE HAMPTON DO M Ot 786.05 07/04/2015 KAYLIE HAMPTON DO M Ot 786.6 07/04/2015 SANTIAGO GARZA Cristin Ot 162.9 07/04/2015 MARTIN MUHAMMAD DIRECTOR OF RADIOLOGY Ot 162.9 07/04/2015 MARTIN MUHAMMAD DIRECTOR OF RADIOLOGY Ot 196.9 07/04/2015 MARTIN MUHAMMAD DIRECTOR OF RADIOLOGY Ot 242.00 07/04/2015 MARTIN MUHAMMAD DIRECTOR OF RADIOLOGY Ot V58.69 07/04/2015 MARTIN MUHAMMAD DIRECTOR OF RADIOLOGY Ot C34.90 07/04/2015 MARTIN MUHAMMAD DIRECTOR OF RADIOLOGY Ot E05.00 07/04/2015 MARTIN MUHAMMAD DIRECTOR OF RADIOLOGY Ot Z79.899 07/04/2015 RADHA HALL DO Ot E05.00 07/04/2015 RADHA HALL DO Ot E05.00 07/04/2015 JOIE HALL DOISON L Ot R25.2 07/04/2015 KAYLA, BOBAN N Ot C34.81 07/04/2015 KAYLA, BOBAN N Ot C34.90 07/04/2015 KAYLA, BOBAN N Ot E05.00 07/04/2015 KAYLA, BOBAN N Ot Z79.899 07/15/2015 KAYLA, BOBAN N Ot C34.90 07/15/2015 KAYLA, BOBAN N Ot E05.00 07/15/2015 KAYLA, BOBAN N Ot Z79.899 09/17/2015 MARTIN MUHAMMAD S DIRECTOR OF RADIOLOGY Ot C34.81 09/17/2015 MARTIN MUHAMMAD S DIRECTOR OF RADIOLOGY Ot C79.89 09/17/2015 MARTIN MUHAMMAD S DIRECTOR OF RADIOLOGY Ot E05.00 09/17/2015 MARTIN MUHAMMAD S DIRECTOR OF RADIOLOGY Ot L27.0 09/17/2015 MARTIN MUHAMMAD S DIRECTOR OF RADIOLOGY Ot T45.1X5A 09/17/2015 MARTIN MUHAMMAD S DIRECTOR OF RADIOLOGY Ot Z79.899 09/18/2015 HALLJOIE JORGE DOISON L Ot E05.00 09/18/2015 MARTIN MUHAMMAD S DIRECTOR OF RADIOLOGY Ot C34.81 09/18/2015 MARTIN MUHAMMAD S DIRECTOR OF RADIOLOGY Ot C79.89 09/18/2015 MARTIN MUHAMMAD S DIRECTOR OF RADIOLOGY Ot E05.00 09/18/2015 MARTIN MUHAMMAD S DIRECTOR OF RADIOLOGY Ot L27.0 09/18/2015 MARTIN MUHAMMAD S DIRECTOR OF RADIOLOGY Ot T45.1X5A 09/18/2015 MARTIN MUHAMMAD S DIRECTOR OF RADIOLOGY Ot Z79.899 09/18/2015 KAYLA, BOBAN N Ot C34.81 09/18/2015 KAYLA, BOBAN N Ot E05.00 09/18/2015 KAYLA, BOBAN N Ot Z79.899 09/18/2015 Ot C34.81 09/23/2015 MARTIN MUHAMMAD S DIRECTOR OF RADIOLOGY Ot C34.81 09/23/2015 MARTIN MUHAMMAD S DIRECTOR OF RADIOLOGY Ot C79.89 09/23/2015 MARTIN MUHAMMAD S DIRECTOR OF RADIOLOGY Ot E05.00 09/23/2015 MARTIN MUHAMMAD DIRECTOR OF RADIOLOGY Ot L27.0 09/23/2015 MARTIN MUHAMMAD DIRECTOR OF RADIOLOGY Ot T45.1X5A 09/23/2015 MARTIN MUHAMMAD DIRECTOR OF RADIOLOGY Ot Z79.899 10/01/2015 MARTIN MUHAMMAD DIRECTOR OF RADIOLOGY Ot C34.81 10/01/2015 MARTIN MUHAMMAD DIRECTOR OF RADIOLOGY Ot E05.00 10/01/2015 MARTIN MUHAMMAD DIRECTOR OF RADIOLOGY Ot L27.0 10/01/2015 MARTIN MUHAMMAD DIRECTOR OF RADIOLOGY Ot T45.1X5A 10/01/2015 MARTIN MUHAMMAD DIRECTOR OF RADIOLOGY Ot Z79.899 10/01/2015 RAFAEL BARTLETT, RADHA L Ot E05.00 10/01/2015 RAFAEL BARTLETT, RADHA L Ot I10 10/01/2015 Ot C34.81 10/01/2015 HALL DO, RADHA L Ot E05.00 10/01/2015 MARTIN MUHAMMAD DIRECTOR OF RADIOLOGY Ot C34.81 10/03/2015 MARTIN MUHAMMAD DIRECTOR OF RADIOLOGY Ot C34.81 10/06/2015 MEHUL SMITH, MANUEL Amaral Ot V76.12 10/06/2015 DAVI SMITH, CHANEL Landin Ot 242.00 10/06/2015 DAVI SMITH, CHANEL Landin Ot 401.9 10/06/2015 DAVI SMITH, CHANEL Landin Ot 729.5 10/06/2015 CHANEL TOMLINSON MD Ot 785.1 10/06/2015 CHANEL TOMLINSON MD Ot 786.05 10/06/2015 DAVI SMITH, CHANEL Landin Ot 786.09 10/06/2015 CHANEL TOMLINSON MD Ot V12.51 10/06/2015 CHANEL TOMLINSON MD Ot 242.00 10/06/2015 CHANEL TOMLINSON MD Ot 453.40 10/06/2015 CHANEL TOMLINSON MD Ot 785.1 10/06/2015 CHANEL TOMLINSON MD Ot 786.05 10/06/2015 KAYLIE HAMPTON DO Ot 416.8 10/06/2015 KAYLIE HAMPTON DO Ot 453.40 10/06/2015 KAYLIE HAMPTON DO Ot 786.05 10/06/2015 KAYLIE HAMPTON DO Ot 793.19 10/06/2015 MEMOKAYLIE SCHULTE DO M Ot 162.9 10/06/2015 KAYLIE HAMPTON DO M Ot 786.05 10/06/2015 MEMO KAYLIE BARTLETT M Ot 786.6 10/06/2015 SANTIAGO GARZA N Ot 162.9 10/06/2015 JB MARTIN S DIRECTOR OF RADIOLOGY Ot 162.9 10/06/2015 ANSLEY MUHAMMADHEATHER S DIRECTOR OF RADIOLOGY Ot 196.9 10/06/2015 JB MARTIN S DIRECTOR OF RADIOLOGY Ot 242.00 10/06/2015 JB MARTIN S DIRECTOR OF RADIOLOGY Ot V58.69 10/06/2015 JB MARTIN S DIRECTOR OF RADIOLOGY Ot C34.90 10/06/2015 ANSLEY MUHAMMADHEATHER S DIRECTOR OF RADIOLOGY Ot E05.00 10/06/2015 MARTIN MUHAMMAD S DIRECTOR OF RADIOLOGY Ot Z79.899 10/06/2015 JOIE HALL DOISON L Ot E05.00 10/06/2015 JOIE HALL DOISON L Ot E05.00 10/06/2015 JOIE HALL DOISON L Ot R25.2 10/06/2015 KELLEE GARZAMEENAKSHI N Ot C34.81 10/06/2015 ANSLEY MUHAMMADHEATHER S DIRECTOR OF RADIOLOGY Ot C34.81 10/06/2015 MARTIN MUHAMMAD S DIRECTOR OF RADIOLOGY Ot E05.00 10/06/2015 MARTIN MUHAMMAD S DIRECTOR OF RADIOLOGY Ot L27.0 10/06/2015 MARTIN MUHAMMAD S DIRECTOR OF RADIOLOGY Ot T45.1X5A 10/06/2015 MARTIN MUHAMMAD S DIRECTOR OF RADIOLOGY Ot Z79.899 10/06/2015 KAYLASANTIAGO N Ot C34.81 10/06/2015 KAYLA SANTIAGO N Ot E05.00 10/06/2015 KELLEE GARZAAN N Ot Z79.899 10/06/2015 JOIE HALL DOISON L Ot E05.00 10/06/2015 RAFAEL BARTLETT RADHA L Ot I10 10/06/2015 Ot C34.81 10/06/2015 RAFAEL BARTLETT RADHA L Ot E05.00 10/06/2015 MARTIN MUHAMMAD S DIRECTOR OF RADIOLOGY Ot C34.81 10/06/2015 MARTIN MUHAMMAD S DIRECTOR OF RADIOLOGY Ot C79.89 10/06/2015 MARTIN MUHAMMAD DIRECTOR OF RADIOLOGY Ot E05.00 10/06/2015 MARTIN MUHAMMAD DIRECTOR OF RADIOLOGY Ot L27.0 10/06/2015 MARTIN MUHAMMAD DIRECTOR OF RADIOLOGY Ot T45.1X5A 10/06/2015 MARTIN MUHAMMAD DIRECTOR OF RADIOLOGY Ot Z79.899 10/06/2015 MARTIN MUHAMMAD DIRECTOR OF RADIOLOGY Ot C34.81 10/08/2015 RADHA HALL DO Ot E05.00 10/12/2015 KAYLAKELLEE SOLARESMEENAKSHI Amaral Ot 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 10/12/2015 SANTIAGO GARZA Ot E05.00 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 10/12/2015 SANTIAGO GARZA Ot Z79.899 OTHER SENIOR CARE (CURRENT) DRUG THERAPY 11/11/2015 MARTIN MUHAMMAD DIRECTOR OF RADIOLOGY Ot 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 11/19/2015 MEHUL SMITH, MANUEL Amaral Ot V76.12 OTH SCREEN MAMMO-MALIGN 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HEIDI 11/19/2015 CHANEL TOMLINSON MD Ot 242.00 TOX DIF GOITER NO CRISIS 11/19/2015 CHANEL TOMLINSON MD Ot 401.9 HYPERTENSION NOS 11/19/2015 CHANEL TOMLINSON MD Ot 729.5 PAIN IN LIMB 11/19/2015 CHANEL TOMLINSON MD Ot 785.1 PALPITATIONS 11/19/2015 CHANEL TOMLINSON MD Ot 786.05 SHORTNESS OF BREATH 11/19/2015 CHANEL TOMLINSON MD Ot 786.09 RESPIRATORY ABNORM NEC 11/19/2015 CHANEL TOMLINSON MD Ot V12.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 11/19/2015 CHANEL TOMLINSON MD Ot 242.00 TOX DIF GOITER NO CRISIS 11/19/2015 CHANEL TOMLINSON MD Ot 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 UNSP 11/19/2015 CHANEL TOMLINSON MD Ot 785.1 PALPITATIONS 11/19/2015 CHANEL TOMLINSON MD Ot 786.05 SHORTNESS OF BREATH 11/19/2015 KAYLIE HAMPTON DO Ot 416.8 CHR PULMON HEART DIS NEC 11/19/2015 KAYLIE HAMPTON DO Ot 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 UNSP 11/19/2015 KAYLIE HAMPTON DO Ot 786.05 SHORTNESS OF BREATH 11/19/2015 KAYLIE HAMPTON DO Ot 793.19 OTHER NONSPECIFIC ABNORMAL FINDING OF [place] 11/19/2015 KAYLIE HAMPTON DO Ot 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 11/19/2015 KAYLIE HAMPTON DO Ot 786.05 SHORTNESS OF BREATH 11/19/2015 KAYLIE HAMPTON DO Ot 786.6 CHEST SWELLING/MASS/LUMP 11/19/2015 SANTIAGO GARZA Ot 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 11/19/2015 MARTIN MUHAMMAD DIRECTOR OF RADIOLOGY Ot 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 11/19/2015 MARTIN MUHAMMAD DIRECTOR OF RADIOLOGY Ot 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 11/19/2015 MARTIN MUHAMMADP Ot 242.00 TOX DIF GOITER NO CRISIS 11/19/2015 MARTIN MUHAMMAD Ot V58.69 OTH MED,LT,CURRENT USE 11/19/2015 MARTIN MUHAMMAD DIRECTOR OF RADIOLOGY Ot 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 11/19/2015 MARTIN MUHAMMAD DIRECTOR OF RADIOLOGY Ot E05.00 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 11/19/2015 MARTIN MUHAMMADP Ot Z79.899 OTHER SENIOR CARE (CURRENT) DRUG THERAPY 11/19/2015 JOIE HALL DOISON L Ot E05.00 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 11/19/2015 JOIE HALL DOISON L Ot E05.00 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 11/19/2015 RADHA HALL DO L Ot R25.2 CRAMP AND SPASM 11/19/2015 SANTIAGO GARZA Ot 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 11/19/2015 MARTIN MUHAMMADP Ot 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 11/19/2015 MARTIN MUHAMMADP Ot E05.00 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 11/19/2015 MARTIN MUHAMMAD DIRECTOR OF RADIOLOGY Ot L27.0 GEN SKIN ERUPTION DUE TO DRUGS AND MEDS 11/19/2015 MARTIN MUHAMMAD DIRECTOR OF RADIOLOGY Ot T45.1X5A ADVERSE EFFECT OF ANTINEOPLASTIC AND IMM 11/19/2015 MARTIN MUHAMMAD DIRECTOR OF RADIOLOGY Ot Z79.899 OTHER MEDICATION COORDINATOR (CURRENT) DRUG THERAPY 11/19/2015 RAFAEL BARTLETT RADHA L Ot E05.00 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 11/19/2015 RAFAEL BARTLETT RADHA L Ot I10 ESSENTIAL (PRIMARY) HYPERTENSION 11/19/2015 Ot 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 11/19/2015 RAFAEL BARTLETT RADHA L Ot E05.00 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 11/19/2015 MARTIN MUHAMMADP Ot 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 11/19/2015 MARTIN MUHAMMAD Ot C79.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 11/19/2015 MARTIN MUHAMMAD Ot E05.00 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 11/19/2015 MARTIN MUHAMMAD Ot L27.0 GEN SKIN ERUPTION DUE TO DRUGS AND MEDS 11/19/2015 MARTIN MUHAMMAD Ot T45.1X5A ADVERSE EFFECT OF ANTINEOPLASTIC AND IMM 11/19/2015 MARTIN MUHAMMAD Ot Z79.899 OTHER MEDICATION COORDINATOR (CURRENT) DRUG THERAPY 11/19/2015 MARTIN MUHAMMAD DIRECTOR OF RADIOLOGY Ot 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 11/19/2015 RAFAEL BARTLETT RADHA L Ot E05.00 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 11/19/2015 SANTIAGO GARZA Ot 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 11/19/2015 SANTIAGO GARZA Ot E05.00 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 11/19/2015 SANTIAGO GARZA Ot Z79.899 OTHER MEDICATION COORDINATOR (CURRENT) DRUG THERAPY 11/19/2015 SANTIAGO GARZA Ot 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 11/19/2015 SANTIAGO GARZA Ot E05.00 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 11/19/2015 SANTIAGO GARZA Ot Z79.899 OTHER SENIOR CARE (CURRENT) DRUG THERAPY 11/20/2015 SANTIAGO GARZA Cristin Ot 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 11/20/2015 SANTIAGO GARZA Ot E05.00 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 11/20/2015 SANTIAGO GARZA Ot Z79.899 OTHER MEDICATION COORDINATOR (CURRENT) DRUG THERAPY 11/20/2015 MARTIN MUHAMMAD DIRECTOR OF RADIOLOGY Ot 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 11/20/2015 MARTIN MUHAMMAD DIRECTOR OF RADIOLOGY Ot E05.00 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 11/20/2015 MARTIN MUHAMMAD DIRECTOR OF RADIOLOGY Ot Z79.899 OTHER MEDICATION COORDINATOR (CURRENT) DRUG THERAPY 11/21/2015 MARTIN MUHAMMAD DIRECTOR OF RADIOLOGY Ot 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 11/21/2015 MARTIN MUHAMMAD DIRECTOR OF RADIOLOGY Ot C79.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 11/21/2015 MARTIN MUHAMMADP Ot E05.00 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 11/21/2015 MARTIN MUHAMMAD DIRECTOR OF RADIOLOGY Ot R21 RASH AND OTHER NONSPECIFIC SKIN ERUPTION 11/21/2015 MARTIN MUHAMMAD DIRECTOR OF RADIOLOGY Ot Z79.899 OTHER SENIOR CARE (CURRENT) DRUG THERAPY 11/21/2015 MARTIN MUHAMMAD DIRECTOR OF RADIOLOGY Ot 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 11/21/2015 MARTIN MUHAMMAD DIRECTOR OF RADIOLOGY Ot C79.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 11/21/2015 MARTIN MUHAMMAD DIRECTOR OF RADIOLOGY Ot E05.00 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 11/21/2015 MARTIN MUHAMMAD DIRECTOR OF RADIOLOGY Ot R21 RASH AND OTHER NONSPECIFIC SKIN ERUPTION 11/21/2015 MARTIN MUHAMMAD DIRECTOR OF RADIOLOGY Ot Z79.899 OTHER SENIOR CARE (CURRENT) DRUG THERAPY 11/27/2015 MARTIN MUHAMMAD DIRECTOR OF RADIOLOGY Ot 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 11/27/2015 MARTIN MUHAMMAD DIRECTOR OF RADIOLOGY Ot C79.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 11/27/2015 MARTIN MUHAMMAD DIRECTOR OF RADIOLOGY Ot E05.00 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 11/27/2015 MARTIN MUHAMMAD DIRECTOR OF RADIOLOGY Ot L27.0 GEN SKIN ERUPTION DUE TO DRUGS AND MEDS 11/27/2015 MARTIN MUHAMMAD DIRECTOR OF RADIOLOGY Ot T45.1X5A ADVERSE EFFECT OF ANTINEOPLASTIC AND IMM 11/27/2015 MARTIN MUHAMMAD DIRECTOR OF RADIOLOGY Ot Z79.899 OTHER SENIOR CARE (CURRENT) DRUG THERAPY 11/27/2015 RADHA HALL DO Ot E05.00 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 12/25/2015 MARTIN MUHAMMADP Ot 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 12/25/2015 MARTIN MUHAMMADP Ot C79.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 12/25/2015 MARTIN MUHAMMADP Ot E05.00 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 12/25/2015 MARTIN MUHAMMADP Ot L27.0 GEN SKIN ERUPTION DUE TO DRUGS AND MEDS 12/25/2015 MARTIN MUHAMMADP Ot T45.1X5A ADVERSE EFFECT OF ANTINEOPLASTIC AND IMM 12/25/2015 MARTIN MUHAMMAD DIRECTOR OF RADIOLOGY Ot Z79.899 OTHER MEDICATION COORDINATOR (CURRENT) DRUG THERAPY 12/25/2015 RADHA HALL DO L Ot E05.00 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 12/31/2015 CHANEL TOMLINSON MD Ot E05.00 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 01/02/2016 CHANEL TOMLINSON MD Ot E05.00 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 01/02/2016 CHANEL TOMLINSON MD Ot E05.00 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 01/07/2016 CHANEL TOMLINSON MD Ot E05.00 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 01/08/2016 CHANEL TOMLINSON MD Ot E05.00 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 01/08/2016 MARTIN MUHAMMAD DIRECTOR OF RADIOLOGY Ot 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 01/08/2016 MARTIN MUHAMMAD DIRECTOR OF RADIOLOGY Ot C79.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 01/08/2016 MARTIN MUHAMMAD DIRECTOR OF RADIOLOGY Ot E05.00 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 01/08/2016 MARTIN MUHAMMAD Ot R21 RASH AND OTHER NONSPECIFIC SKIN ERUPTION 01/08/2016 MARTIN MUHAMMAD Ot Z79.899 OTHER MEDICATION COORDINATOR (CURRENT) DRUG THERAPY 01/08/2016 DAVI SMITH, CHANEL Landin Ot E05.00 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 01/08/2016 RADHA HALL DO Ot E05.00 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 01/08/2016 JOIE HALL DOISON L Ot M54.2 CERVICALGIA 01/08/2016 MARTIN MUHAMMAD Ot 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 01/08/2016 MARTIN MUHAMMAD Ot C79.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 01/08/2016 MARTIN MUHAMMAD Ot E05.00 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 01/08/2016 MARTIN MUHAMMAD Ot R21 RASH AND OTHER NONSPECIFIC SKIN ERUPTION 01/08/2016 MARTIN MUHAMMADP Ot Z79.899 OTHER SENIOR CARE (CURRENT) DRUG THERAPY 01/08/2016 MARTIN MUHAMMADP Ot 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 01/08/2016 MARTIN MUHAMMADP Ot E05.00 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 01/08/2016 MARTIN MUHAMMADP Ot Z79.899 OTHER SENIOR CARE (CURRENT) DRUG THERAPY 01/09/2016 DAVI SMITH, CHANEL Landin Ot E05.00 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 01/28/2016 MARTIN MUHAMMADP Ot 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 01/28/2016 MARTIN MUHAMMADP Ot 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 01/28/2016 MUHAMMAD, HILAH S DIRECTOR OF RADIOLOGY Ot 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 02/03/2016 RADHA HALL DO Ot E05.00 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 02/17/2016 SANTIAGO GARZA Ot 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 02/17/2016 SANTIAGO GARZA Ot E05.00 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 02/17/2016 SANTIAGO GARZA Ot Z79.899 OTHER SENIOR CARE (CURRENT) DRUG THERAPY 02/24/2016 MARTIN MUHAMMADP Ot 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 02/24/2016 MARTIN MUHAMMAD DIRECTOR OF RADIOLOGY Ot E05.00 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 02/24/2016 MARTIN MUHAMMADP Ot Z79.899 OTHER MEDICATION COORDINATOR (CURRENT) DRUG THERAPY 02/25/2016 JOIE HALL DOISON L Ot E05.00 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 03/24/2016 SANTIAGO GARZA Ot 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 03/24/2016 SANTIAGO GARZA Ot E05.00 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 03/24/2016 SANTIAGO GARZA N Ot Z79.899 OTHER MEDICATION COORDINATOR (CURRENT) DRUG THERAPY 03/29/2016 KAYLASANTIAGO N Ot 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 03/29/2016 KAYLA KELLEEMEENAKSHI N Ot E05.00 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 03/29/2016 KAYLASANTIAGO N Ot Z79.899 OTHER MEDICATION COORDINATOR (CURRENT) DRUG THERAPY 03/30/2016 KAYLASANTIAGO N Ot 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 03/30/2016 KAYLASANTIAGO Ot E05.00 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 03/30/2016 KAYLASANTIAGO N Ot Z79.899 OTHER MEDICATION COORDINATOR (CURRENT) DRUG THERAPY 05/12/2016 RAFAEL BARTLETT RADHA Ollie Ot E05.00 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 05/12/2016 KAYLASANTIAGO SOLARES Ot 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 05/12/2016 KAYLASANTIAGO N Ot E05.00 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 05/12/2016 KAYLASANTIAGO N Ot Z79.899 OTHER MEDICATION COORDINATOR (CURRENT) DRUG THERAPY 06/07/2016 MARTIN MUHAMMAD DIRECTOR OF RADIOLOGY Ot 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 06/08/2016 MARTIN MUHAMMAD DIRECTOR OF RADIOLOGY Ot 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 06/10/2016 MARTIN MUHAMMAD DIRECTOR OF RADIOLOGY Ot 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 06/27/2016 SANTIAGO GARZA N Ot 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 06/27/2016 SANTIAGO GARZA N Ot E05.00 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 06/27/2016 SANTIAGO GARZA Ot Z23 ENCOUNTER FOR IMMUNIZATION 06/27/2016 SANTIAGO GARZA N Ot Z79.899 OTHER MEDICATION COORDINATOR (CURRENT) DRUG THERAPY 07/06/2016 SANTIAGO GARZA N Ot 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 07/06/2016 SANTIAGO GARZA Ot R42 DIZZINESS AND GIDDINESS 07/06/2016 SNATIAGO GARZA Ot 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 07/06/2016 SANTIAGO GARZA Ot R42 DIZZINESS AND GIDDINESS 07/06/2016 RAFAEL BARTLETT, RADHA L Ot E05.00 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 07/27/2016 RAFAEL BARTLETT, RADHA L Ot E05.00 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 07/28/2016 RAFAEL BARTLETT, RADHA L Ot E05.00 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 08/31/2016 SANTIAGO GARZA Ot 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 08/31/2016 SANTIAGO GARZA Ot E05.00 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 08/31/2016 SANTIAGO GARZA Ot Z79.899 OTHER MEDICATION COORDINATOR (CURRENT) DRUG THERAPY 09/03/2016 Ot 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 Procedures Results Test Result Range THYROID STIMULATING HORMONE - 02/02/16 08:21 THYROID STIMULATING HORMONE 3.66 u[iU]/mL 0.35-4.94 THYROID STIMULATING HORMONE - 03/29/16 09:23 THYROID STIMULATING HORMONE 1.25 u[iU]/mL 0.35-4.94 THYROID STIMULATING HORMONE - 07/05/16 08:29 THYROID STIMULATING HORMONE 3.17 u[iU]/mL 0.35-4.94 Automated blood complete blood count (hemogram) panel - 09/16/16 09:45 Blood leukocytes automated count (number/volume) 7.1 10*3/ uL 4.3-11.0 Blood erythrocytes automated count (number/volume) 4.69 10*6 /uL 4.35-5.85 Venous blood hemoglobin measurement (mass/volume) 13.6 g/dL 11.5-16.0 Blood hematocrit (volume fraction) 40 % 35-52 Automated erythrocyte mean corpuscular volume 85 [foz_us] 80-99 Automated erythrocyte mean corpuscular hemoglobin (mass per erythrocyte) 29 pg 25-34 Automated erythrocyte mean corpuscular hemoglobin concentration measurement ( mass/volume) 34 g/dL 32-36 Automated erythrocyte distribution width ratio 13.6 % 10.0-14.5 Automated blood platelet count (count/volume) 174 10*3/uL 130-400 Automated blood platelet mean volume measurement 10.1 [foz_ us] 7.4-10.4 PT panel in platelet poor plasma by coagulation assay - 09/16/16 09:45 Prothrombin time (PT) in platelet poor plasma by coagulation assay 12.8 s 12.2-14.7 INR in platelet poor plasma or blood by coagulation assay 1.0 0.8-1.4 Activated partial thromboplastin time (aPTT) in platelet poor plasma bycoagulation assay - 09/16/16 09:45 Activated partial thromboplastin time (aPTT) in platelet poor plasma bycoagulation assay 32 s 24-35 Encounters ACCT No. Visit Date/Time Discharge Status Pt. Type Provider Facility Loc./Unit Complaint [id number] 06/07/2016 10:18:00 2016 00:01:00 DIS Outpatient SANTIAGO GARZA Cristin [facility] ONC [id number] 01/14/2016 10:17:00 2015 00:01:00 DIS Outpatient KAYLA KELLEEMEENAKSHI Cristin [facility] ONC [id number] 10/08/2015 09:20:00 2015 00:01:00 DIS Outpatient KAYLA KELLEEMEENAKSHI Cristin [facility] ONC [id number] 05/30/2015 08:30:00 2014 00:01:00 DIS Outpatient SANTIAGO GARZA Cristin [facility] ONC [id number] 05/20/2015 08:42:00 2014 23:59:59 CLS Outpatient RADHA HALL DO [facility] LAB [id number] 05/09/2015 12:12:00 2014 23:59:59 CLS Outpatient RADHA HALL DO [facility] LAB [id number] 04/25/2015 08:31:00 2014 23:59:59 CLS Outpatient MARTIN MUHAMMAD Via [facility] ONC [id number] 03/12/2015 12:19:00 2014 00:01:00 DIS Outpatient SANTIAGO GARZA [facility] ONC [id number] 02/14/2015 13:20:00 2014 00:01:00 DIS Outpatient SANTIAGO GARZA [facility] ONC [id number] 02/28/2015 08:16:00 2014 23:59:59 CLS Outpatient JB MARTIN LUTZP [facility] ONC [id number] 01/06/2015 12:22:00 2014 23:59:59 CLS Outpatient SANTIAGO GARZA [facility] RAD [id number] 12/12/2014 12:04:00 2014 16:50:00 DIS Outpatient SANTIAGO GARZA [facility] RAD [id number] 12/04/2014 09:04:00 2014 17:40:00 DIS Outpatient FATEMEH PAYNE MD [facility] SDC [id number] 11/11/2014 12:37:00 2014 23:59:59 CLS Outpatient KAYLIE HAMPTON DO [facility] RAD [id number] 11/11/2014 10:45:00 2014 23:59:59 CLS Preadmit KAYLIE HAMPTON DO [facility] RAD [id number] 11/05/2014 07:41:00 2014 23:59:59 CLS Outpatient KAYLIE HAMPTON DO [facility] RAD [id number] 10/31/2014 11:03:00 2014 23:59:59 CLS Outpatient KAYLIE HAMPTON DO [facility] RAD [id number] 10/16/2014 06:36:00 2014 13:30:00 DIS Outpatient CHANEL TOMLINOSN MD [facility] CATH [id number] 10/09/2014 08:15:00 2014 23:59:59 CLS Outpatient CHANEL TOMLINSON MD [facility] CARD [id number] 10/07/2014 08:45:00 2014 23:59:59 CLS Outpatient CHANEL TOMLINSON MD [facility] CARD [id number] 08/03/2013 13:29:00 2013 23:59:59 CLS Outpatient MANUEL CARVER MD [facility] RAD [id number] 09/16/2016 09:55:00 Document Registration [id number] 09/06/2016 10:16:00 ACT Outpatient SANTIAGO GARZA Cristin [facility] ONC [id number] 09/02/2016 10:31:00 Document Registration [id number] 07/05/2016 08:21:00 ACT Outpatient HALL DO, RADHA L [facility] LAB GRAVES DISEASE [id number] 06/09/2016 12:41:00 ACT Outpatient SANTIAGO GARZA [facility] RAD DIZZINESS,NON SMALL CELL LUNG CA [id number] 06/04/2016 11:00:00 ACT Outpatient MARTIN MUHAMMAD DIRECTOR OF RADIOLOGY Via [facility] CARD LUNG CANCER [id number] 03/29/2016 09:04:00 ACT Outpatient HALL DO, RADHA L [facility] LAB [id number] 02/02/2016 08:19:00 ACT Outpatient HALL DO, RADHA L [facility] LAB GRAVES DRIVES [id number] 12/30/2015 07:30:00 ACT Outpatient CHANEL TOMLINSON MD [facility] RAD [id number] 12/12/2015 13:16:00 ACT Outpatient HALL DO, RADHA L [facility] RAD [id number] 11/20/2015 08:49:00 ACT Outpatient MARTIN MUHAMMAD DIRECTOR OF RADIOLOGY Via [facility] ONC [id number] 11/19/2015 08:27:00 ACT Outpatient MARTIN MUHAMMAD DIRECTOR OF RADIOLOGY Via [facility] ONC [id number] 10/07/2015 08:33:00 ACT Outpatient HALL DO, RADHA L [facility] LAB [id number] 09/30/2015 10:39:00 ACT Outpatient MARTIN MUHAMMAD [facility] CARD [id number] 09/12/2015 10:38:00 ACT Outpatient MARTIN MUHAMMAD Via [facility] ONC [id number] 08/21/2015 07:16:00 ACT Outpatient RADHA HALL DO [facility] LAB [id number] 07/18/2015 07:37:00 Document Registration [id number] 07/04/2015 08:29:00 ACT Outpatient RADHA HALL DO [facility] LAB [id number] 07/04/2015 08:26:00 ACT Outpatient MARTIN MUHAMMAD [facility] ONC [id number] 05/30/2015 07:55:00 ACT Outpatient SANTIAGO GARZA [facility] RAD
== END 2016-09-16 16:05 | disposition home or self-care (01) ==
LOC: DELPENDDIS → RAD 09:01
PROVIDERS: ATTEND Internal Medicine Hematology & Oncology
DX: C34.11 Malignant neoplasm of upper lobe, right bronchus or lung (principal); C34.81 Malignant neoplasm of overlapping sites of right bronchus and lung
CPT/HCPCS: 36415; 71035; 77012; 85027; 85610; 85730; 88305

== ENCOUNTER → 2016-09-27 | Outpatient (CLI) | payer OTHER | LOC: LAB 09:22 | PROVIDERS: ATTEND Internal Medicine Endocrinology, Diabetes & Metabolism | DX: E05.00 Thyrotoxicosis with diffuse goiter without thyrotoxic crisis or storm (principal) | CPT/HCPCS: 36415; 84443 ==

== ENCOUNTER → 2016-11-01 | Outpatient (CLI) | payer OTHER ==
--- NOTE | 2016-11-04 07:13 | ECHOCARDIOGRAPHY REPORT ---
DATE OF SERVICE: 11/01/2016 TEST DATE: 11/01/16 MEASUREMENT: LVID end diastolic 4.6. IVS thickness 1.2 LVPW thickness 1.2 Left atrial diameter 3.9 Ejection fraction 60%. FINDINGS: 1. Technical quality is good. 2. The left ventricle is normal in size with mild left ventricular hypertrophy noted diffusely. Systolic function appeared to be normal, estimated ejection fraction 60%. 3. The left atrium is normal in size. No clot or thrombus were seen within the left atrium. 4. The right atrium and right ventricle are normal in size. No clot or thrombus were seen within the right side. 5. Mitral valve is normal in morphology with mild to moderate mitral regurgitation noted by color Doppler flow. No mitral valve prolapse. No mitral valve stenosis. 6. Aortic valve is trileaflet with normal opening and closing pattern, no significant aortic valve stenosis, trace aortic regurgitation noted by color Doppler flow. 7. Tricuspid valve is normal in morphology with moderate tricuspid regurgitation noted by color Doppler flow. Doppler across the tricuspid valve estimated pulmonary artery pressure of 58+ right atrial pressure. 8. Pulmonic valve is functioning normally. 9. No pericardial effusion. CONCLUSION: 1. Mild left ventricular hypertrophy noted diffusely with normal systolic function. Estimated ejection fraction 60%. 2. Mild to moderate mitral regurgitation, moderate tricuspid regurgitation, trace aortic regurgitation. 3. Estimated pulmonary artery pressure 65 mmHg. Job ID: [id number] DocumentID: [id number] Dictated Date: 11/03/2016 14:33:04 Lmft Date: 11/03/2016 15:05:17 Dictated By: CHANEL TOMLINSON MD
== END ==
LOC: CARD 10:46
PROVIDERS: ATTEND Nurse Practitioner Adult Health
DX: I27.2 Other secondary pulmonary hypertension (principal); I25.10 Atherosclerotic heart disease of native coronary artery without angina pectoris; C34.81 Malignant neoplasm of overlapping sites of right bronchus and lung; Z79.899 Other long term (current) drug therapy
CPT/HCPCS: 93306

== ENCOUNTER 2016-11-11 10:14 | Outpatient (RCR) | payer OTHER ==
--- OUTSIDE RECORDS SUMMARY | 2016-08-30 08:25 | XMS REPORT | Continuity of Care Document ---
Author Author [facility] Organization [facility] Address Unknown Phone Unavailable Care Team Providers Care Travel Agency Manager Name Role Phone MANUEL CARVER MD PCP Insurance Providers Payer Name Policy Number Subscriber Name Relationship Self Pay Approved Full Linnea [id number] Anayeli Quintana 20 Self / Same As Patient Advance Directives Directive Response Recorded Date/Time Advance Directives Yes 12/12/14 1:30pm Health Care Power of Upholsterer Limousine [employer] Hearse Y son 12/12/14 1:30pm Organ Donor No [...] Discharge/Depart Date Attending Provider Registered Clinic [facility] 06/09/16 12:41pm SANTIAGO GARZA Discharged Recurring [facility] 06/07/16 10:18am 11:59pm SANTIAGO GARZA Registered Clinic [facility] 06/04/16 11:00am MARTIN MUHAMMAD
[2016-08-30 08:52] LABS: BASOPHILS % (AUTO) 0 % (0-10); EOSINOPHILS # (AUTO) 0.2 10^3/uL (0.0-0.3); EOSINOPHILS % (AUTO) 3 % (0-10); LYMPHOCYTES # (AUTO) 1.1 X 10^3 (1.0-4.0); LYMPHOCYTES % (AUTO) 18 % (12-44); MEAN CORPUSCULAR HEMOGLOBIN 29 PG (25-34); MEAN CORPUSCULAR HGB CONC 34 G/DL (32-36); MEAN CORPUSCULAR VOLUME 84 FL (80-99); MEAN PLATELET VOLUME 10.1 FL (7.4-10.4); MONOCYTES # (AUTO) 0.6 X 10^3 (0.0-1.0); MONOCYTES % (AUTO) 10 % (0-12); NEUTROPHILS # (AUTO) 4.2 X 10^3 (1.8-7.8); NEUTROPHILS % (AUTO) 70 % (42-75); PLATELET COUNT 183 10^3/uL (130-400); RED BLOOD COUNT 4.74 10^6/uL (4.35-5.85)
[2016-08-30 09:14] LABS: CREATININE SERUM 0.95 MG/DL (0.60-1.30); POTASSIUM 3.8 MMOL/L (3.6-5.0)
[2016-08-30 09:15] LABS: ALBUMIN 3.8 G/DL (3.2-4.5); BILIRUBIN,TOTAL 1.7 MG/DL (0.1-1.0); CALCIUM 8.7 MG/DL (8.5-10.1); TOTAL PROTEIN 6.7 G/DL (6.4-8.2)
[2016-09-27 09:40] LABS: BASOPHILS % (AUTO) 1 % (0-10); EOSINOPHILS # (AUTO) 0.2 10^3/uL (0.0-0.3); EOSINOPHILS % (AUTO) 2 % (0-10); LYMPHOCYTES # (AUTO) 1.1 X 10^3 (1.0-4.0); LYMPHOCYTES % (AUTO) 17 % (12-44); MEAN CORPUSCULAR HEMOGLOBIN 29 PG (25-34); MEAN CORPUSCULAR HGB CONC 35 G/DL (32-36); MEAN CORPUSCULAR VOLUME 85 FL (80-99); MEAN PLATELET VOLUME 9.7 FL (7.4-10.4); MONOCYTES # (AUTO) 0.7 X 10^3 (0.0-1.0); MONOCYTES % (AUTO) 10 % (0-12); NEUTROPHILS # (AUTO) 4.6 X 10^3 (1.8-7.8); NEUTROPHILS % (AUTO) 70 % (42-75); PLATELET COUNT 205 10^3/uL (130-400); RED BLOOD COUNT 4.56 10^6/uL (4.35-5.85); RED CELL DISTRIBUTION WIDTH 13.8 % (10.0-14.5); WHITE BLOOD COUNT 6.6 10^3/uL (4.3-11.0)
[2016-09-27 10:53] LABS: ALANINE AMINOTRANSFERASE 9 U/L (0-55); ANION GAP 7 MMOL/L (5-14); ASPARTATE AMINO TRANSFERASE 18 U/L (5-34); BILIRUBIN,TOTAL 1.6 MG/DL (0.1-1.0); BLOOD UREA NITROGEN 17 MG/DL (7-18); BUN/CREATININE RATIO 19; CALCIUM 8.7 MG/DL (8.5-10.1); CARBON DIOXIDE 28 MMOL/L (21-32); CHLORIDE 105 MMOL/L (98-107); CREATININE SERUM 0.89 MG/DL (0.60-1.30); GFR ESTIMATED > 60; GLUCOSE 83 MG/DL (70-105); POTASSIUM 4.2 MMOL/L (3.6-5.0); SODIUM 140 MMOL/L (135-145); TOTAL PROTEIN 7.3 G/DL (6.4-8.2)
[2016-11-01 11:40] LABS: BASOPHILS % (AUTO) 0 % (0-10); EOSINOPHILS # (AUTO) 0.2 10^3/uL (0.0-0.3); EOSINOPHILS % (AUTO) 2 % (0-10); LYMPHOCYTES # (AUTO) 1.4 X 10^3 (1.0-4.0); LYMPHOCYTES % (AUTO) 19 % (12-44); MEAN CORPUSCULAR HEMOGLOBIN 29 PG (25-34); MEAN CORPUSCULAR HGB CONC 34 G/DL (32-36); MEAN CORPUSCULAR VOLUME 86 FL (80-99); MEAN PLATELET VOLUME 9.7 FL (7.4-10.4); MONOCYTES # (AUTO) 0.6 X 10^3 (0.0-1.0); MONOCYTES % (AUTO) 8 % (0-12); NEUTROPHILS # (AUTO) 5.1 X 10^3 (1.8-7.8); NEUTROPHILS % (AUTO) 70 % (42-75); PLATELET COUNT 188 10^3/uL (130-400); RED BLOOD COUNT 4.69 10^6/uL (4.35-5.85); RED CELL DISTRIBUTION WIDTH 13.1 % (10.0-14.5); WHITE BLOOD COUNT 7.3 10^3/uL (4.3-11.0)
[2016-11-01 12:06] LABS: ALANINE AMINOTRANSFERASE 10 U/L (0-55); ALBUMIN 4.2 G/DL (3.2-4.5); ANION GAP 5 MMOL/L (5-14); ASPARTATE AMINO TRANSFERASE 18 U/L (5-34); BILIRUBIN,TOTAL 0.6 MG/DL (0.1-1.0); BLOOD UREA NITROGEN 15 MG/DL (7-18); BUN/CREATININE RATIO 17; CALCIUM 9.2 MG/DL (8.5-10.1); CARBON DIOXIDE 32 MMOL/L (21-32); CHLORIDE 102 MMOL/L (98-107); CREATININE SERUM 0.87 MG/DL (0.60-1.30); GFR ESTIMATED > 60; GLUCOSE 86 MG/DL (70-105); MAGNESIUM 2.5 MG/DL (1.8-2.4); POTASSIUM 4.4 MMOL/L (3.6-5.0); SODIUM 139 MMOL/L (135-145); TOTAL PROTEIN 7.7 G/DL (6.4-8.2)
[2016-11-01 12:26] LABS: THYROID STIMULATING HORMONE 2.45 UIU/ML (0.35-4.94)
--- NOTE | 2016-11-05 09:26 | Diagnostic Imaging Report ---
INDICATION: Checkup exam for lung cancer COMPARISON STUDY: Frontal and lateral views of the chest are compared to an exam from 09-16-16. FINDINGS: The exam demonstrates multiple bilateral lung nodules. These have not significantly changed. The heart size and vascularity are normal. No effusion or pneumothorax is present. IMPRESSION: Multiple pulmonary nodules are again identified. Dictated by: Dictated on workstation # [id number]
[~2016-11-11 10:14] MED LIST changes: -CATHETER FLUSH 10 ML SYR IV PRN; -IOHEXOL 350 MG/ML 150 ML (OMNIPAQUE 350) VIAL IV ONE; -NS 100 ML (IVPB) BAG IV ONE
--- NOTE | 2016-11-11 13:55 | Diagnostic Imaging Report ---
INDICATION: Cough and left-sided chest pain. PA and lateral chest obtained at 0123 hours p.m. and compared to 11/05/2016. Heart is mildly prominent. Mediastinal silhouette is unremarkable. There are multiple nodular densities and interstitial changes throughout both lungs, the largest nodule in the right upper lobe appears similar to the prior study. There is no pneumothorax or pleural fluid or other new finding. IMPRESSION: Unchanged multiple pulmonary nodules and interstitial changes throughout both lungs, similar to the prior study. There is no acute change compared with 11/05/2016. Dictated by: Dictated on workstation # [id number]
== END 2016-11-28 | disposition home or self-care (01) ==
LOC: ONC 10:14
PROVIDERS: ATTEND Internal Medicine Hematology & Oncology
DX: C34.81 Malignant neoplasm of overlapping sites of right bronchus and lung (principal); C79.89 Secondary malignant neoplasm of other specified sites; E05.00 Thyrotoxicosis with diffuse goiter without thyrotoxic crisis or storm; I25.10 Atherosclerotic heart disease of native coronary artery without angina pectoris; I27.2 Other secondary pulmonary hypertension; R05 Cough; M54.6 Pain in thoracic spine; Z79.899 Other long term (current) drug therapy
CPT/HCPCS: 36415; 71020; 80053; 83735; 84443; 85025; 93005; 99213

== ENCOUNTER → 2016-11-11 | Outpatient (CLI) | payer OTHER ==
[~2016-11-11] MED LIST changes: +CATHETER FLUSH 10 ML SYR IV PRN; +IOHEXOL 350 MG/ML 150 ML (OMNIPAQUE 350) VIAL IV ONE; +NS 100 ML (IVPB) BAG IV ONE
--- NOTE | 2016-11-11 15:31 | Diagnostic Imaging Report ---
PROCEDURE: CT angiography of the chest with contrast. TECHNIQUE: Multiple contiguous axial images were obtained through the chest after uneventful bolus administration of intravenous contrast. Reconstructed CTA MIP acquisitions were also performed. INDICATION: Cough, left-sided chest pain posteriorly, right arm pain, history of lung cancer. COMPARISON: Study compared with chest CT performed on 09/02/2016. FINDINGS: There are no intraluminal pulmonary arterial filling defects. There were no findings of pulmonary arterial embolus and the patent thoracic aorta is nonaneurysmal showing no evidence for dissection. There are multiple pulmonary nodules redemonstrated. The largest soft tissue mass in the right upper lobe is just posterior to the mainstem bronchus measuring 3.6 cm x 2.6 cm, previously 3.2 cm x 2.2 cm. Next largest mass in the left upper lobe anterolaterally extends to the pleural surface and measures a maximal transverse width of 1.9 cm, previously 1.7 cm. Patchy airspace-like nodules in both pulmonary apices appeared more pronounced today and thickening of the interstitium has progressed diffusely. Cavitary lesion in the left lower lobe measuring 1.8 cm has not substantially changed. There are no pathological-appearing hilar or mediastinal lymph nodes. No destructive osseous lesion. IMPRESSION: Dominant lung masses have increased in size from prior. Development of five-lobe interstitial opacities which could be edema, inflammatory change, or even reflect lymphangitic spread of carcinoma. No adenopathy. Negative for PE. Nonacute aorta. Dictated by: Dictated on workstation # [id number]
== END ==
LOC: RAD 13:29
PROVIDERS: ATTEND Nurse Practitioner Adult Health
DX: C34.81 Malignant neoplasm of overlapping sites of right bronchus and lung (principal); R52 Pain, unspecified
CPT/HCPCS: 71275

== ENCOUNTER → 2017-01-07 | Outpatient (CLI) | payer OTHER ==
[2017-01-07 08:01] LABS: ALANINE AMINOTRANSFERASE 10 U/L (0-55); ALBUMIN 4.1 GM/DL (3.2-4.5); ANION GAP 8 MMOL/L (5-14); ASPARTATE AMINO TRANSFERASE 18 U/L (5-34); BILIRUBIN,TOTAL 0.9 MG/DL (0.1-1.0); BLOOD UREA NITROGEN 15 MG/DL (7-18); BUN/CREATININE RATIO 16; CALCIUM 9.1 MG/DL (8.5-10.1); CARBON DIOXIDE 27 MMOL/L (21-32); CHLORIDE 104 MMOL/L (98-107); CHOLESTEROL 208 MG/DL (< 200); CREATININE SERUM 0.92 MG/DL (0.60-1.30); DIRECT LDL 129 MG/DL (1-129); GFR ESTIMATED > 60; GLUCOSE 98 MG/DL (70-105); POTASSIUM 4.6 MMOL/L (3.6-5.0); SODIUM 139 MMOL/L (135-145); TOTAL PROTEIN 7.6 GM/DL (6.4-8.2); TRIGLYCERIDES 66 MG/DL (<150); VLDL CHOLESTEROL 13 MG/DL (5-40)
== END ==
LOC: LAB 07:25
PROVIDERS: ATTEND Physician Assistant
DX: I25.10 Atherosclerotic heart disease of native coronary artery without angina pectoris (principal); C34.81 Malignant neoplasm of overlapping sites of right bronchus and lung; R00.2 Palpitations; R06.02 Shortness of breath
CPT/HCPCS: 36415; 80053; 80061

== ENCOUNTER → 2017-01-07 | Outpatient (CLI) | payer OTHER ==
[2017-01-07 07:45] LABS: BASOPHILS % (AUTO) 0 % (0-10); EOSINOPHILS # (AUTO) 0.1 10^3/uL (0.0-0.3); EOSINOPHILS % (AUTO) 2 % (0-10); LYMPHOCYTES % (AUTO) 25 % (12-44); MEAN CORPUSCULAR HEMOGLOBIN 28 PG (25-34); MEAN CORPUSCULAR HGB CONC 33 G/DL (32-36); MEAN CORPUSCULAR VOLUME 85 FL (80-99); MEAN PLATELET VOLUME 9.7 FL (7.4-10.4); MONOCYTES # (AUTO) 0.5 X 10^3 (0.0-1.0); MONOCYTES % (AUTO) 11 % (0-12); NEUTROPHILS # (AUTO) 2.5 X 10^3 (1.8-7.8); NEUTROPHILS % (AUTO) 62 % (42-75); PLATELET COUNT 133 10^3/uL (130-400); RED BLOOD COUNT 4.62 10^6/uL (4.35-5.85); RED CELL DISTRIBUTION WIDTH 12.9 % (10.0-14.5); WHITE BLOOD COUNT 4.1 10^3/uL (4.3-11.0)
--- NOTE | 2017-01-07 08:01 | Diagnostic Imaging Report ---
PA and lateral views of the chest. INDICATION: Lung cancer. COMPARISON: 12/03/16. FINDINGS: There is a 2.2 cm right suprahilar lung nodule compared to 1.9 CM measurement on 12/03/2016. No definite other nodule is seen. No significant consolidation. Background chronic appearing interstitial thickening however, seen. The heart size is mildly enlarged. IMPRESSION: Question of minimal enlargement in right suprahilar pulmonary nodule. Dictated by: Dictated on workstation # [id number]
== END ==
LOC: LAB 07:21
PROVIDERS: ATTEND Internal Medicine Hematology & Oncology
DX: C34.81 Malignant neoplasm of overlapping sites of right bronchus and lung (principal); Z51.11 Encounter for antineoplastic chemotherapy
CPT/HCPCS: 36415; 71020; 84443; 85025

== ENCOUNTER 2017-02-07 10:19 | Outpatient (RCR) | payer OTHER ==
[2016-12-03 08:57] LABS: BASOPHILS % (AUTO) 1 % (0-10); EOSINOPHILS # (AUTO) 0.1 10^3/uL (0.0-0.3); EOSINOPHILS % (AUTO) 3 % (0-10); LYMPHOCYTES # (AUTO) 0.9 X 10^3 (1.0-4.0); LYMPHOCYTES % (AUTO) 20 % (12-44); MEAN CORPUSCULAR HEMOGLOBIN 28 PG (25-34); MEAN CORPUSCULAR HGB CONC 33 G/DL (32-36); MEAN CORPUSCULAR VOLUME 87 FL (80-99); MEAN PLATELET VOLUME 9.8 FL (7.4-10.4); MONOCYTES # (AUTO) 0.5 X 10^3 (0.0-1.0); MONOCYTES % (AUTO) 10 % (0-12); NEUTROPHILS # (AUTO) 3.1 X 10^3 (1.8-7.8); NEUTROPHILS % (AUTO) 66 % (42-75); PLATELET COUNT 124 10^3/uL (130-400); RED BLOOD COUNT 4.43 10^6/uL (4.35-5.85); RED CELL DISTRIBUTION WIDTH 12.9 % (10.0-14.5); WHITE BLOOD COUNT 4.7 10^3/uL (4.3-11.0)
[2016-12-03 09:31] LABS: ALBUMIN 3.9 G/DL (3.2-4.5); BILIRUBIN,TOTAL 0.8 MG/DL (0.1-1.0); CALCIUM 8.8 MG/DL (8.5-10.1); CREATININE SERUM 0.98 MG/DL (0.60-1.30); POTASSIUM 4.4 MMOL/L (3.6-5.0); TOTAL PROTEIN 7.4 G/DL (6.4-8.2)
--- NOTE | 2016-12-03 11:24 | Diagnostic Imaging Report ---
PA and lateral views of the chest. INDICATION: Cough. History of lung cancer. FINDINGS: Dominant 2 cm right suprahilar pulmonary nodule is unchanged. Other smaller nodular densities in the lungs appear less prominent compared to 11/11/2016. There is no definite new infiltrate or atelectasis seen. No pneumothorax. The heart size is mildly enlarged. Background chronic appearing interstitial thickening is seen with no definite vascular congestion or edema. IMPRESSION: Cardiomegaly. Pulmonary nodules with a dominant right suprahilar 2 cm lesion is seen. Dictated by: Dictated on workstation # [id number]
[2016-12-21 14:06] LABS: BASOPHILS % (AUTO) 0 % (0-10); EOSINOPHILS # (AUTO) 0.1 10^3/uL (0.0-0.3); EOSINOPHILS % (AUTO) 1 % (0-10); LYMPHOCYTES # (AUTO) 1.2 X 10^3 (1.0-4.0); LYMPHOCYTES % (AUTO) 19 % (12-44); MEAN CORPUSCULAR HEMOGLOBIN 29 PG (25-34); MEAN CORPUSCULAR HGB CONC 34 G/DL (32-36); MEAN CORPUSCULAR VOLUME 86 FL (80-99); MEAN PLATELET VOLUME 9.7 FL (7.4-10.4); MONOCYTES # (AUTO) 0.6 X 10^3 (0.0-1.0); MONOCYTES % (AUTO) 10 % (0-12); NEUTROPHILS # (AUTO) 4.1 X 10^3 (1.8-7.8); NEUTROPHILS % (AUTO) 69 % (42-75); PLATELET COUNT 148 10^3/uL (130-400); RED BLOOD COUNT 4.43 10^6/uL (4.35-5.85)
[2016-12-21 14:41] LABS: CALCIUM 8.5 MG/DL (8.5-10.1); CREATININE SERUM 1.13 MG/DL (0.60-1.30); ICTERUS 0.8 (-100-1.9); POTASSIUM 4.5 MMOL/L (3.6-5.0)
--- NOTE | 2017-02-04 09:07 | Diagnostic Imaging Report ---
PA and lateral views of the chest. INDICATION: Lung cancer. COMPARISON: 01/07/17. FINDINGS: There is a 2.2 cm nodule in the right upper lobe similar to the previous exam. The heart size is mildly enlarged. There is interstitial thickening bilaterally similar to the previous study. No effusion or pneumothorax. The mediastinum and maricarmen appear unremarkable. IMPRESSION: Unchanged 2.2 cm right upper lobe lung nodule. Dictated by: Dictated on workstation # [id number]
[2017-02-04 09:11] LABS: BASOPHILS % (AUTO) 0 % (0-10); EOSINOPHILS # (AUTO) 0.1 10^3/uL (0.0-0.3); EOSINOPHILS % (AUTO) 2 % (0-10); LYMPHOCYTES # (AUTO) 0.9 X 10^3 (1.0-4.0); LYMPHOCYTES % (AUTO) 20 % (12-44); MEAN CORPUSCULAR HEMOGLOBIN 28 PG (25-34); MEAN CORPUSCULAR HGB CONC 33 G/DL (32-36); MEAN CORPUSCULAR VOLUME 86 FL (80-99); MEAN PLATELET VOLUME 9.7 FL (7.4-10.4); MONOCYTES # (AUTO) 0.6 X 10^3 (0.0-1.0); MONOCYTES % (AUTO) 13 % (0-12); NEUTROPHILS # (AUTO) 3.1 X 10^3 (1.8-7.8); NEUTROPHILS % (AUTO) 66 % (42-75); PLATELET COUNT 135 10^3/uL (130-400); RED BLOOD COUNT 4.52 10^6/uL (4.35-5.85); RED CELL DISTRIBUTION WIDTH 13.1 % (10.0-14.5); WHITE BLOOD COUNT 4.8 10^3/uL (4.3-11.0)
[2017-02-04 09:37] LABS: ALANINE AMINOTRANSFERASE 14 U/L (0-55); ALBUMIN 4.1 GM/DL (3.2-4.5); ANION GAP 10 MMOL/L (5-14); ASPARTATE AMINO TRANSFERASE 23 U/L (5-34); BILIRUBIN,TOTAL 0.6 MG/DL (0.1-1.0); BLOOD UREA NITROGEN 18 MG/DL (7-18); BUN/CREATININE RATIO 20; CARBON DIOXIDE 25 MMOL/L (21-32); CHLORIDE 103 MMOL/L (98-107); CREATININE SERUM 0.92 MG/DL (0.60-1.30); GFR ESTIMATED > 60; GLUCOSE 68 MG/DL (70-105); POTASSIUM 4.4 MMOL/L (3.6-5.0); SODIUM 138 MMOL/L (135-145); TOTAL PROTEIN 7.7 GM/DL (6.4-8.2)
== END 2017-03-03 | disposition home or self-care (01) ==
LOC: ONC 10:19
PROVIDERS: ATTEND Internal Medicine Hematology & Oncology
DX: C34.81 Malignant neoplasm of overlapping sites of right bronchus and lung (principal); E05.00 Thyrotoxicosis with diffuse goiter without thyrotoxic crisis or storm; I25.10 Atherosclerotic heart disease of native coronary artery without angina pectoris; I27.2 Other secondary pulmonary hypertension; E80.6 Other disorders of bilirubin metabolism; Z82.49 Family history of ischemic heart disease and other diseases of the circulatory system; Z79.899 Other long term (current) drug therapy
CPT/HCPCS: 36415; 71020; 80048; 80053; 85025; 93005; 99213

== ENCOUNTER → 2017-03-07 | Outpatient (CLI) | payer OTHER ==
[~2017-03-07] MED LIST changes: +BARIUM SUSPENSION 2.1% (VANILLA SILQ) 450 ML PO ONE; +CATHETER FLUSH 10 ML SYR IV PRN; +IOHEXOL 350 MG/ML 100 ML (OMNIPAQUE 350) VIAL IV ONE; +NS 100 ML (IVPB) BAG IV ONE
[2017-03-07] MEDS: CATHETER FLUSH 10 ML SYR IV PRN ×2 (11:13→11:29)
--- NOTE | 2017-03-07 14:15 | Diagnostic Imaging Report ---
PROCEDURE: CT chest and abdomen with contrast. TECHNIQUE: Multiple contiguous axial images were obtained through the chest and abdomen after the administration of intravenous contrast. INDICATION: Back pain. COMPARISON: Exam compared to 11/11/2016. FINDINGS: Since the previous exam, there has been the development of a small amount of incompletely occlusive clot within the right upper lobar branch. The undivided pulmonary segments, the left and right main pulmonary arteries as well as the remaining lobar segmental and subsegmental branches showed normal luminal opacification. No evidence for elevated right heart pressures. The dominant mass in the patient's right upper lobe shows mild reduction in size, 2 cm today, previously 2.2 cm. Multiple additional lung masses showed substantial interval improvement from prior and include complete resolution of a posterior hilar right upper lobe mass that on the prior had measured 3.6 cm. Nodular thickening of the interlobular septa shows a marked interval improvement. There were innumerable airspace-like nodular foci bilaterally distributed throughout all five lobes, the vast majority of which have completely resolved and few of which are barely perceptible as vague regions of borderline increased density. No adverse soft tissue development. No thoracic effusion, and no evidence for lymphadenopathy. ABDOMEN: Hepatic cyst is stable. There is no adrenal mass. No abdominal mesenteric or retroperitoneal adenopathy. No ascites, fluid collection, or free air. IMPRESSION: CHEST: 1. The exam does confirm a small amount of incompletely occlusive right upper lobar PE without evidence of right heart strain. No other thrombus is found. 2. Marked improvement in bilateral pulmonary nodularity. The largest residual mass shows a mild reduction in size. Many additional masses have completely resolved or essentially imperceptible on followup. No adverse soft tissue development. No thoracic effusion or lymphadenopathy. ABDOMEN: A benign hepatic cyst with no findings of abdominal involvement by metastatic disease. These results were phoned to the [facility] nurse at the time of the dictation. Dictated by: Dictated on workstation # [id number]
--- NOTE | 2017-03-07 19:04 | Diagnostic Imaging Report ---
Whole body bone scan. TECHNIQUE: After the intravenous administration of 27 mCi of Technetium 99m MDP, whole body delayed phase bone scan images were obtained with lateral views of the head and neck and the chest regions. INDICATION: Lung cancer. COMPARISON: 09/02/2016. FINDINGS: There is an intense focal area of increased activity seen in the posterior ninth rib which corresponds with a subacute fracture on CT scan. There is otherwise no significant increased uptake in the bony structures particularly within the axial skeleton to suggest metastatic disease. Mild degenerative changes related increased uptake is seen in different joints. Renal and urinary bladder uptake is noted. IMPRESSION: Posterior left ninth rib activity which appears to correspond with a subacute fracture is seen. No scintigraphic evidence of bone metastasis. Dictated by: Dictated on workstation # [id number]
== END ==
LOC: RAD 10:58
PROVIDERS: ATTEND Nurse Practitioner Adult Health
DX: I26.99 Other pulmonary embolism without acute cor pulmonale (principal); R91.8 Other nonspecific abnormal finding of lung field; K76.89 Other specified diseases of liver; C34.81 Malignant neoplasm of overlapping sites of right bronchus and lung
CPT/HCPCS: 71260; 74160; 78306

== ENCOUNTER 2017-03-14 10:56 | Outpatient (RCR) | payer OTHER ==
[2017-03-11 09:01] LABS: BASOPHILS % (AUTO) 0 % (0-10); EOSINOPHILS # (AUTO) 0.1 10^3/uL (0.0-0.3); EOSINOPHILS % (AUTO) 2 % (0-10); LYMPHOCYTES # (AUTO) 0.8 X 10^3 (1.0-4.0); LYMPHOCYTES % (AUTO) 14 % (12-44); MEAN CORPUSCULAR HEMOGLOBIN 29 PG (25-34); MEAN CORPUSCULAR HGB CONC 34 G/DL (32-36); MEAN CORPUSCULAR VOLUME 86 FL (80-99); MEAN PLATELET VOLUME 9.9 FL (7.4-10.4); MONOCYTES # (AUTO) 0.7 X 10^3 (0.0-1.0); MONOCYTES % (AUTO) 12 % (0-12); NEUTROPHILS % (AUTO) 72 % (42-75); PLATELET COUNT 153 10^3/uL (130-400); RED CELL DISTRIBUTION WIDTH 13.4 % (10.0-14.5); WHITE BLOOD COUNT 5.5 10^3/uL (4.3-11.0)
[2017-03-11 09:22] LABS: ALANINE AMINOTRANSFERASE 12 U/L (0-55); ALBUMIN 4.1 GM/DL (3.2-4.5); ANION GAP 7 MMOL/L (5-14); ASPARTATE AMINO TRANSFERASE 19 U/L (5-34); BILIRUBIN,TOTAL 0.7 MG/DL (0.1-1.0); BLOOD UREA NITROGEN 16 MG/DL (7-18); BUN/CREATININE RATIO 18; CALCIUM 8.7 MG/DL (8.5-10.1); CARBON DIOXIDE 27 MMOL/L (21-32); CHLORIDE 104 MMOL/L (98-107); GFR ESTIMATED > 60; GLUCOSE 96 MG/DL (70-105); POTASSIUM 4.5 MMOL/L (3.6-5.0); SODIUM 138 MMOL/L (135-145); TOTAL PROTEIN 7.6 GM/DL (6.4-8.2)
[2017-03-11 09:43] LABS: THYROID STIMULATING HORMONE 1.66 UIU/ML (0.35-4.94)
[~2017-03-14 10:56] MED LIST changes: -BARIUM SUSPENSION 2.1% (VANILLA SILQ) 450 ML PO ONE; -CATHETER FLUSH 10 ML SYR IV PRN; -IOHEXOL 350 MG/ML 100 ML (OMNIPAQUE 350) VIAL IV ONE; -NS 100 ML (IVPB) BAG IV ONE
== END 2017-03-26 | disposition home or self-care (01) ==
LOC: ONC 10:56
PROVIDERS: ATTEND Internal Medicine Hematology & Oncology
DX: C34.81 Malignant neoplasm of overlapping sites of right bronchus and lung (principal); E05.00 Thyrotoxicosis with diffuse goiter without thyrotoxic crisis or storm; I25.10 Atherosclerotic heart disease of native coronary artery without angina pectoris; I27.2 Other secondary pulmonary hypertension; E80.6 Other disorders of bilirubin metabolism; Z82.49 Family history of ischemic heart disease and other diseases of the circulatory system; Z79.899 Other long term (current) drug therapy
CPT/HCPCS: 80053; 84443; 85025; 99213

== ENCOUNTER 2017-04-11 14:47 | Outpatient (RCR) | payer OTHER ==
[2017-04-07 09:43] LABS: BASOPHILS % (AUTO) 0 % (0-10); EOSINOPHILS # (AUTO) 0.1 10^3/uL (0.0-0.3); EOSINOPHILS % (AUTO) 1 % (0-10); LYMPHOCYTES # (AUTO) 1.1 X 10^3 (1.0-4.0); LYMPHOCYTES % (AUTO) 11 % (12-44); MEAN CORPUSCULAR HEMOGLOBIN 29 PG (25-34); MEAN CORPUSCULAR HGB CONC 33 G/DL (32-36); MEAN CORPUSCULAR VOLUME 86 FL (80-99); MEAN PLATELET VOLUME 10.1 FL (7.4-10.4); MONOCYTES # (AUTO) 0.8 X 10^3 (0.0-1.0); MONOCYTES % (AUTO) 8 % (0-12); NEUTROPHILS # (AUTO) 7.9 X 10^3 (1.8-7.8); NEUTROPHILS % (AUTO) 79 % (42-75); PLATELET COUNT 160 10^3/uL (130-400); RED BLOOD COUNT 4.53 10^6/uL (4.35-5.85); RED CELL DISTRIBUTION WIDTH 13.4 % (10.0-14.5); WHITE BLOOD COUNT 9.9 10^3/uL (4.3-11.0)
[2017-04-07 10:09] LABS: BILIRUBIN,TOTAL 0.5 MG/DL (0.1-1.0); CALCIUM 8.8 MG/DL (8.5-10.1); CREATININE SERUM 0.95 MG/DL (0.60-1.30); POTASSIUM 4.3 MMOL/L (3.6-5.0); TOTAL PROTEIN 7.9 GM/DL (6.4-8.2)
--- NOTE | 2017-04-07 21:52 | Diagnostic Imaging Report ---
EXAMINATION: PA and lateral views of the chest. INDICATION: Lung cancer. IMPRESSION: 02/04/17. FINDINGS: There is a right upper lobe nodule, measuring 2.4 cm that appears minimally more prominent compared to 02/04/2017. There is stable background interstitial thickening noted. The heart size is mildly enlarged. No effusion or pneumothorax. The mediastinum and maricarmen appear unremarkable. IMPRESSION: A 2.4 cm right suprahilar pulmonary nodule appears slightly more prominent compared to 02/04/17 exam. Dictated by: Dictated on workstation # [id number]
== END 2017-05-11 08:30 | disposition home or self-care (01) ==
LOC: ONC 14:47
PROVIDERS: ATTEND Internal Medicine Hematology & Oncology
DX: C34.81 Malignant neoplasm of overlapping sites of right bronchus and lung (principal); E05.00 Thyrotoxicosis with diffuse goiter without thyrotoxic crisis or storm; I25.10 Atherosclerotic heart disease of native coronary artery without angina pectoris; I27.20 Pulmonary hypertension, unspecified; E80.6 Other disorders of bilirubin metabolism; Z82.49 Family history of ischemic heart disease and other diseases of the circulatory system; Z79.899 Other long term (current) drug therapy
CPT/HCPCS: 36415; 71020; 80053; 84443; 85025; 99213

== ENCOUNTER 2017-06-10 08:26 | Outpatient (RCR) | payer OTHER ==
[2017-05-11 08:55] LABS: BASOPHILS % (AUTO) 0 % (0-10); EOSINOPHILS # (AUTO) 0.2 10^3/uL (0.0-0.3); EOSINOPHILS % (AUTO) 3 % (0-10); LYMPHOCYTES # (AUTO) 1.1 X 10^3 (1.0-4.0); LYMPHOCYTES % (AUTO) 18 % (12-44); MEAN CORPUSCULAR HEMOGLOBIN 28 PG (25-34); MEAN CORPUSCULAR HGB CONC 33 G/DL (32-36); MEAN CORPUSCULAR VOLUME 85 FL (80-99); MEAN PLATELET VOLUME 10.1 FL (7.4-10.4); MONOCYTES # (AUTO) 0.7 X 10^3 (0.0-1.0); MONOCYTES % (AUTO) 12 % (0-12); NEUTROPHILS % (AUTO) 67 % (42-75); PLATELET COUNT 150 10^3/uL (130-400); RED BLOOD COUNT 4.59 10^6/uL (4.35-5.85); RED CELL DISTRIBUTION WIDTH 13.4 % (10.0-14.5)
[2017-05-11 09:21] LABS: ALBUMIN 3.9 GM/DL (3.2-4.5); BILIRUBIN,TOTAL 0.8 MG/DL (0.1-1.0); CALCIUM 8.8 MG/DL (8.5-10.1); CREATININE SERUM 1.04 MG/DL (0.60-1.30); POTASSIUM 4.2 MMOL/L (3.6-5.0); TOTAL PROTEIN 7.4 GM/DL (6.4-8.2)
--- NOTE | 2017-05-11 09:30 | Diagnostic Imaging Report ---
INDICATION: Increased cough. History of lung cancer. COMPARISON: CT chest dated 03/07/2017 FINDINGS: Frontal and lateral graphic views of the chest were obtained. Again identified is masslike opacity within the right upper lobe consistent with patient's known lung cancer. Remainder of the lungs continue to show diffuse coarse interstitial opacities. Overall, aeration is stable. There is no large effusion or pneumothorax. Cardiac silhouette and pulmonary vasculature are within normal limits. Bony structures show no gross acute abnormalities. IMPRESSION: 1. Stable exam of the chest showing diffuse coarse interstitial opacities; likely on a senescent basis. 2. Redemonstration of patient's known right upper lobe pulmonary nodule/mass. Dictated by: Dictated on workstation # [id number]
[2017-06-10 08:54] LABS: BASOPHILS % (AUTO) 0 % (0-10); EOSINOPHILS # (AUTO) 0.1 10^3/uL (0.0-0.3); EOSINOPHILS % (AUTO) 3 % (0-10); LYMPHOCYTES # (AUTO) 0.9 X 10^3 (1.0-4.0); LYMPHOCYTES % (AUTO) 17 % (12-44); MEAN CORPUSCULAR HEMOGLOBIN 29 PG (25-34); MEAN CORPUSCULAR HGB CONC 34 G/DL (32-36); MEAN CORPUSCULAR VOLUME 85 FL (80-99); MEAN PLATELET VOLUME 10.2 FL (7.4-10.4); MONOCYTES # (AUTO) 0.6 X 10^3 (0.0-1.0); MONOCYTES % (AUTO) 11 % (0-12); NEUTROPHILS # (AUTO) 3.8 X 10^3 (1.8-7.8); NEUTROPHILS % (AUTO) 70 % (42-75); PLATELET COUNT 161 10^3/uL (130-400); RED BLOOD COUNT 4.65 10^6/uL (4.35-5.85); RED CELL DISTRIBUTION WIDTH 13.5 % (10.0-14.5); WHITE BLOOD COUNT 5.5 10^3/uL (4.3-11.0)
[2017-06-10 09:20] LABS: ALBUMIN 4.1 GM/DL (3.2-4.5); BILIRUBIN,TOTAL 0.6 MG/DL (0.1-1.0); CALCIUM 9.1 MG/DL (8.5-10.1); CREATININE SERUM 0.98 MG/DL (0.60-1.30); POTASSIUM 4.4 MMOL/L (3.6-5.0); TOTAL PROTEIN 8.2 GM/DL (6.4-8.2)
--- NOTE | 2017-06-10 09:21 | Diagnostic Imaging Report ---
INDICATION: Cough and dyspnea PA and lateral views of the chest are obtained with comparison made to study of 05/11/2017. The heart size and pulmonary vascularity remain within normal limits. Prominent interstitial markings are seen throughout both lungs with irregular nodule measuring approximately 2.8 cm in diameter is again demonstrated in the upper lobe of the right lung. There is no evidence of pneumothorax or significant pleural fluid. IMPRESSION: Chronic appearing interstitial lung disease likely related to COPD with 2.8 cm right upper lobe pulmonary mass showing no significant change. No new infiltrate is detected. Dictated by: Dictated on workstation # [id number]
== END 2017-06-10 12:41 | disposition home or self-care (01) ==
LOC: ONC 08:26
PROVIDERS: ATTEND Internal Medicine Hematology & Oncology
DX: C34.81 Malignant neoplasm of overlapping sites of right bronchus and lung (principal); E05.00 Thyrotoxicosis with diffuse goiter without thyrotoxic crisis or storm; I25.10 Atherosclerotic heart disease of native coronary artery without angina pectoris; I27.20 Pulmonary hypertension, unspecified; E80.6 Other disorders of bilirubin metabolism; Z82.49 Family history of ischemic heart disease and other diseases of the circulatory system; Z79.899 Other long term (current) drug therapy
CPT/HCPCS: 36415; 71020; 80053; 85025; 99213

== ENCOUNTER → 2017-06-10 | Outpatient (CLI) | payer OTHER | LOC: LAB 09:47 | PROVIDERS: ATTEND Internal Medicine Endocrinology, Diabetes & Metabolism | DX: E03.2 Hypothyroidism due to medicaments and other exogenous substances (principal) | CPT/HCPCS: 36415; 84443 ==

== ENCOUNTER → 2017-07-07 | Outpatient (CLI) | payer SELFPAY ==
[~2017-07-07] MED LIST changes: +CATHETER FLUSH 10 ML SYR IV PRN
--- NOTE | 2017-07-07 14:13 | Diagnostic Imaging Report ---
PROCEDURE: CT chest and abdomen with contrast. TECHNIQUE: Multiple contiguous axial images were obtained through the chest and abdomen after the administration of intravenous contrast. INDICATION: Lung cancer. FINDINGS: The previous CT chest exam performed on 03/07/2017 noted incompletely occlusive thrombus within a branch of one of the pulmonary arteries to the right upper lobe. On this study, there is little if any residual thrombus formation still present in this area. There is no other defect within the pulmonary arteries to indicate a pulmonary embolus. The aorta is not abnormally dilated, and the heart size is enlarged but stable when compared to the prior study. There is no mediastinal or hilar adenopathy. The prior exam did identify a mass in the right upper lung measuring approximately 2.1 cm in maximum AP and transverse diameters. On this study, the mass has increased in size and now measures 2.6 x 2.7 cm in maximum AP and transverse diameters. The 0.8 x 1.1 cm parenchymal nodule in the right perihilar region seen previously has also increased in size and now measures 0.9 x 1.5 cm. There is also a 1.4 x 1.9 cm parenchymal mass just inferior to the right mainstem bronchus. This was present on the prior exam although difficult to evaluate due to alveolar/interstitial pulmonary infiltrates. It does appear to have increased in size since the prior study. There is a new mass in the right lung base near the right hemidiaphragm measuring 1.0 x 1.3 cm. There is also a new nodule in the left upper lung measuring 0.5 x 0.6 cm. A few other subcentimeter nodules are also again visualized in the periphery of the left lung. There are coarse interstitial densities throughout both lungs. There is no consolidated pneumonia or pleural effusion identified to suggest an acute abnormality. The sections through the upper abdomen again show the large cyst in the right lobe of the liver. This finding does not appear to have changed significantly when compared to the prior study. However, since the previous exam, a 1.7 x 2.0 cm area of low density has developed in the left lobe of the liver adjacent to the gastric fundus. This lies just lateral to the small enhancing lesion seen on the prior study. I suspect the enhancing lesion is a hemangioma. There are also two other areas of diminished density within the liver, which were not clearly evident on the prior exam. The largest of these is along the anterior aspect of the left lobe of the liver and measures 1.2 x 1.9 cm. The other is along the periphery of the right lobe of the liver and measures 0.9 x 1.0 cm. All of these findings should be considered secondary to neoplastic disease until proven otherwise. The spleen, the pancreas, the adrenals, the kidneys, the gallbladder, the aorta and inferior vena cava are unremarkable for an acute abnormality. The stomach is filled with particulate matter and consequently difficult to assess. There is no abdominal mass or free fluid collection noted. The bone windows show no sign of a fracture or of a destructive lesion. IMPRESSION: 1. The appearance of the chest has worsened since the prior study as the mass in the right upper lung has increased in size. Several other pulmonary masses have also increased in size since the prior exam, and a few new nodules have developed. These findings would be consistent with progressive metastatic disease. 2. Also, in the interval since the prior exam, several areas of low density have developed within the liver. These findings should be considered secondary to metastatic disease as well. The overall appearance of the abdomen is otherwise stable. 3. The defect within the pulmonary arteries to the right upper lobe seen on the prior exam has resolved. There is no sign of a pulmonary embolus or of an acute cardiopulmonary abnormality at this time. Dictated by: Dictated on workstation # [id number]
--- NOTE | 2017-07-07 15:31 | Diagnostic Imaging Report ---
EXAMINATION: Whole body bone scan. INDICATION: Lung cancer. TECHNIQUE: This study was performed following administration of 26.3 mCi of 99m-technetium MDP. Anterior and posterior whole body images were obtained as well as spot lateral views of the skull and thorax. FINDINGS: The previous whole body bone scan of 03/07/2017 noted a focal area of increased activity in the proximal left ninth rib. This was felt to correspond to the nondisplaced fracture of the left ninth rib seen on the CT chest and abdomen exam performed on the same day. On this study, that finding is again identified and no different. The overall appearance of the bone scan is otherwise stable as well. No new area of increased activity has developed to suggest neoplastic disease. Both kidneys do show excretion of the radiotracer. IMPRESSION: The area of abnormal uptake involving the left ninth rib seen on the previous study is again evident and no different. The overall appearance of the bone scan is otherwise stable. No new abnormality has developed. Dictated by: Dictated on workstation # [id number]
== END ==
LOC: CARD 11:20
PROVIDERS: ATTEND Internal Medicine Hematology & Oncology
DX: C34.90 Malignant neoplasm of unspecified part of unspecified bronchus or lung (principal)
CPT/HCPCS: 71260; 74160; 78306

== ENCOUNTER → 2017-08-31 | Outpatient (CLI) | payer OTHER ==
[~2017-08-31] MED LIST changes: -CATHETER FLUSH 10 ML SYR IV PRN
[2017-08-31 09:46] LABS: CLARITY,URINE CLEAR; COLOR,URINE YELLOW
[2017-08-31 09:47] LABS: BACTERIA,URINE TRACE /HPF; BILIRUBIN,URINE NEGATIVE (NEGATIVE); GLUCOSE, URINE (UA) NEGATIVE (NEGATIVE); KETONES,URINE NEGATIVE (NEGATIVE); LEUKOCYTE ESTERASE ,URINE NEGATIVE (NEGATIVE); NITRITE,URINE NEGATIVE (NEGATIVE); PH,URINE 5 (5-9); PROTEIN,URINE NEGATIVE (NEGATIVE); RBC,URINE RARE /HPF; UROBILINOGEN,URINE NORMAL (NORMAL); WBC,URINE RARE /HPF
== END ==
LOC: LAB 08:46
PROVIDERS: ATTEND Family Medicine
DX: R31.9 Hematuria, unspecified (principal)
CPT/HCPCS: 81000

== ENCOUNTER 2017-09-05 12:55 | Outpatient (RCR) | payer OTHER ==
[2017-07-06 09:57] LABS: BASOPHILS % (AUTO) 0 % (0-10); EOSINOPHILS # (AUTO) 0.1 10^3/uL (0.0-0.3); EOSINOPHILS % (AUTO) 2 % (0-10); HEMATOCRIT 38 % (35-52); HEMOGLOBIN 13.2 G/DL (11.5-16.0); LYMPHOCYTES # (AUTO) 0.9 X 10^3 (1.0-4.0); LYMPHOCYTES % (AUTO) 14 % (12-44); MEAN CORPUSCULAR HEMOGLOBIN 29 PG (25-34); MEAN CORPUSCULAR HGB CONC 34 G/DL (32-36); MEAN CORPUSCULAR VOLUME 85 FL (80-99); MEAN PLATELET VOLUME 10.4 FL (7.4-10.4); MONOCYTES # (AUTO) 0.7 X 10^3 (0.0-1.0); MONOCYTES % (AUTO) 11 % (0-12); NEUTROPHILS # (AUTO) 4.8 X 10^3 (1.8-7.8); NEUTROPHILS % (AUTO) 73 % (42-75); PLATELET COUNT 138 10^3/uL (130-400); RED BLOOD COUNT 4.52 10^6/uL (4.35-5.85); RED CELL DISTRIBUTION WIDTH 13.7 % (10.0-14.5); WHITE BLOOD COUNT 6.6 10^3/uL (4.3-11.0)
[2017-07-06 10:23] LABS: ALBUMIN 3.9 GM/DL (3.2-4.5); BILIRUBIN,TOTAL 0.7 MG/DL (0.1-1.0); CALCIUM 8.9 MG/DL (8.5-10.1); CREATININE SERUM 0.94 MG/DL (0.60-1.30); POTASSIUM 4.1 MMOL/L (3.6-5.0); TOTAL PROTEIN 7.8 GM/DL (6.4-8.2)
--- NOTE | 2017-08-05 08:45 | Diagnostic Imaging Report ---
INDICATION: Cough, lung cancer. COMPARISON: 06/10/2017. FINDINGS: Frontal and lateral views of the chest demonstrate no mass in the right upper lobe. Senescent changes are seen throughout the interstitium. The heart remains prominent without pulmonary edema. There is no pneumothorax or effusion. Osseous structures are age-appropriate. IMPRESSION: Stable right upper lobe lung mass. No interval change. Dictated by: Dictated on workstation # [id number]
[2017-08-05 08:51] LABS: BASOPHILS % (AUTO) 0 % (0-10); EOSINOPHILS # (AUTO) 0.1 10^3/uL (0.0-0.3); EOSINOPHILS % (AUTO) 1 % (0-10); HEMATOCRIT 40 % (35-52); HEMOGLOBIN 13.6 G/DL (11.5-16.0); LYMPHOCYTES % (AUTO) 14 % (12-44); MEAN CORPUSCULAR HEMOGLOBIN 29 PG (25-34); MEAN CORPUSCULAR HGB CONC 34 G/DL (32-36); MEAN CORPUSCULAR VOLUME 85 FL (80-99); MEAN PLATELET VOLUME 10.4 FL (7.4-10.4); MONOCYTES # (AUTO) 0.7 X 10^3 (0.0-1.0); MONOCYTES % (AUTO) 10 % (0-12); NEUTROPHILS # (AUTO) 5.4 X 10^3 (1.8-7.8); NEUTROPHILS % (AUTO) 74 % (42-75); PLATELET COUNT 158 10^3/uL (130-400); RED BLOOD COUNT 4.68 10^6/uL (4.35-5.85); RED CELL DISTRIBUTION WIDTH 13.8 % (10.0-14.5); WHITE BLOOD COUNT 7.2 10^3/uL (4.3-11.0)
[2017-08-05 09:15] LABS: ALBUMIN 4.1 GM/DL (3.2-4.5); BILIRUBIN,TOTAL 0.8 MG/DL (0.1-1.0); CALCIUM 8.9 MG/DL (8.5-10.1); CREATININE SERUM 1.04 MG/DL (0.60-1.30); POTASSIUM 4.1 MMOL/L (3.6-5.0); TOTAL PROTEIN 8.4 GM/DL (6.4-8.2)
[2017-08-31 08:48] LABS: BASOPHILS % (AUTO) 0 % (0-10); EOSINOPHILS # (AUTO) 0.1 10^3/uL (0.0-0.3); EOSINOPHILS % (AUTO) 1 % (0-10); HEMATOCRIT 38 % (35-52); HEMOGLOBIN 12.8 G/DL (11.5-16.0); LYMPHOCYTES % (AUTO) 12 % (12-44); MEAN CORPUSCULAR HEMOGLOBIN 29 PG (25-34); MEAN CORPUSCULAR HGB CONC 34 G/DL (32-36); MEAN CORPUSCULAR VOLUME 86 FL (80-99); MEAN PLATELET VOLUME 10.1 FL (7.4-10.4); MONOCYTES # (AUTO) 0.6 X 10^3 (0.0-1.0); MONOCYTES % (AUTO) 7 % (0-12); NEUTROPHILS # (AUTO) 6.8 X 10^3 (1.8-7.8); NEUTROPHILS % (AUTO) 80 % (42-75); PLATELET COUNT 155 10^3/uL (130-400); RED BLOOD COUNT 4.42 10^6/uL (4.35-5.85); RED CELL DISTRIBUTION WIDTH 13.8 % (10.0-14.5); WHITE BLOOD COUNT 8.5 10^3/uL (4.3-11.0)
[2017-08-31 09:08] LABS: BILIRUBIN,TOTAL 0.7 MG/DL (0.1-1.0); CALCIUM 8.9 MG/DL (8.5-10.1); CREATININE SERUM 1.01 MG/DL (0.60-1.30); POTASSIUM 4.4 MMOL/L (3.6-5.0); TOTAL PROTEIN 7.8 GM/DL (6.4-8.2)
[2017-08-31 09:29] LABS: FREE T4 (FREE THYROXINE) 1.29 NG/DL (0.70-1.48)
--- NOTE | 2017-08-31 09:50 | Diagnostic Imaging Report ---
INDICATION: Lung carcinoma. TIME OF EXAM: 9:16 AM COMPARISON: Correlation is made with prior study from 08/05/2017. FINDINGS: The heart size is stable. The irregular parenchymal density in the right upper lobe appears similar to prior exam one month earlier. Areas of parenchymal density in the right lung base are stable and may represent some scarring or atelectasis. Left lung is clear. No effusion is seen. There is no pneumothorax. IMPRESSION: Stable right upper lobe mass when compared with examination from 08/05/2017. Dictated by: Dictated on workstation # [id number]
[2017-09-12] MEDS ORDERED: APIX2.5T PO (08:31)
[2017-09-12] MEDS ORDERED: OSIM80TA PO (08:40)
[2017-09-12] MEDS ORDERED: TOBR5DRO2 OU (08:40)
[2017-09-12] MEDS ORDERED: TIMO5DRO5 OD (08:40)
[2017-09-12] MEDS ORDERED: LISI-556 PO (08:45)
[2017-09-12] MEDS ORDERED: OMEP20CA12 PO (08:45)
[2017-09-12] MEDS ORDERED: LEVO88TA54 PO (08:45)
[2017-09-12] MEDS ORDERED: NF-CLIN1% TP (10:11)
[2017-09-12] MEDS ORDERED: POLY15DR14 OU (10:19)
[2017-09-12] MEDS ORDERED: FLUO15CR2 TP (10:19)
[2017-09-12] MEDS ORDERED: ACET325T49 PO (10:19)
== END 2017-09-11 | disposition home or self-care (01) ==
LOC: ONC 12:55
PROVIDERS: ATTEND Internal Medicine Hematology & Oncology
DX: C34.81 Malignant neoplasm of overlapping sites of right bronchus and lung (principal); E05.00 Thyrotoxicosis with diffuse goiter without thyrotoxic crisis or storm; I25.10 Atherosclerotic heart disease of native coronary artery without angina pectoris; I27.20 Pulmonary hypertension, unspecified; E80.6 Other disorders of bilirubin metabolism; Z82.49 Family history of ischemic heart disease and other diseases of the circulatory system; Z79.899 Other long term (current) drug therapy
CPT/HCPCS: 36415; 71046; 80053; 84439; 84443; 85025; 99213

== ENCOUNTER → 2017-09-09 | Outpatient (CLI) | payer OTHER ==
[~2017-09-09] MED LIST changes: +ACET325T49 PO; +APIX2.5T PO; +CATHETER FLUSH 10 ML SYR IV PRN; +FLUO15CR2 TP; +IOHEXOL 350 MG/ML 100 ML (OMNIPAQUE 350) VIAL IV ONE; +LEVO88TA54 PO; +LISI-556 PO; +NF-CLIN1% TP; +NS 250 ML (IVPB) BAG IV ONE; +OMEP20CA12 PO; +OSIM80TA PO; +POLY15DR14 OU; +RECEIVED CONTRAST (Hold Metformin) IV SCH; +TIMO5DRO5 OD; +TOBR5DRO2 OU
--- NOTE | 2017-09-09 13:06 | Diagnostic Imaging Report ---
PROCEDURE: CT chest and abdomen with contrast. TECHNIQUE: Multiple contiguous axial images were obtained through the chest and abdomen after the administration of intravenous contrast. INDICATION: History of lung cancer. Patient feels pressure on chest. Comparison with 07/07/2017. CT chest: FINDINGS: Multiple bilateral parenchymal lung lesions are again demonstrated. The previously measured lesions all appear to have increased in size. Largest lesion in the right upper lobe now measures 2.8 x 2.7 cm. This previously measured 2.6 x 2.7 cm. The lesion in the right lower lobe posterior to the mainstem bronchus now measures 2.1 x 1.5 cm previously measuring 1.9 x 1.3 cm. The nodule in the right middle lobe which is lobulated in appearance previously measured 1.5 x 0.9 cm now measures 1.9 x 1.2 cm. The inferior lateral right lobe lesion previously measured 10 x 12 mm now measures 12 x 15 mm. The left lung lesion previously measured in the left upper lobe laterally was 6 x 5 mm now measuring 9 x 8 mm. There are several additional nodules bilaterally which have either developed or increased in size as well. Diffuse interstitial lung disease is present. Could not exclude developing lymphangitic spread with the appearance of the lungs now. There is good opacification of the aorta and pulmonary arteries. Aortic root is mildly enlarged. No mediastinal or hilar adenopathy of pathologic size. No pleural effusions or pericardial effusions. No blastic or lytic bony lesions. IMPRESSION: 1. Findings are consistent with metastatic lung disease showing progression in size and number of lesions bilaterally. 2. Interstitial lung disease may represent developing lymphangitic spread as well. CT abdomen: FINDINGS: The large lobulated cystic lesion in the dome of the right lobe of the liver does not appear significantly changed in size or shape. The area of decreased density on the contrasted image along the tip of the left lobe of the liver measuring 2.5 x 2 cm. This previously measured 1.9 x 1.7 cm. The gallbladder and bile ducts are normal. The pancreas shows a cystic lesion which was present previously in the body and does not appear changed. The spleen appears normal. The adrenal glands are normal. The kidneys show a simple cyst in the upper pole on the right. There is normal enhancement of the abdominal organs and vessels following IV contrast with the exception of the hypodense areas in the liver showing no enhancement. The aorta and abdominal vessels show mild atherosclerotic disease. There is oral contrast in the stomach and small bowel. There is no evidence of distended bowel loops. The colon shows normal stool and gas pattern where visualized. No intra-abdominal adenopathy has developed. No bony lesions are seen. IMPRESSION: 1. The large cystic lesion in the dome of the right lobe of the liver appears stable. The hypodense lesion along the tip of the left lobe of the liver has increased in size now measuring 2.5 x 2 cm. 2. No intra-abdominal adenopathy is developed. Dictated by: Dictated on workstation # [id number]
--- NOTE | 2017-09-09 17:25 | Diagnostic Imaging Report ---
EXAM: Nuclear medicine whole body bone scan. DATE: September 09, 2017. INDICATION: 72-year-old female, thoracic spine pain. History of lung cancer. COMPARISON: CT chest and abdomen September 09, 2017. Nuclear medicine whole body bone scan July 07, 2017. FINDINGS: 25.4 mCi of technetium labeled MDP radiotracer was administered. Delayed subsequent whole-body bone scan images were subsequently obtained. Additional lateral projections at the level of the skull and thoracic spine were also provided. There is an unchanged area of focal radiotracer uptake within the left ninth rib posteriorly. There is no additional abnormal radiotracer-avid lesion. IMPRESSION: 1. Unchanged radiotracer-avid lesion involving the left posterior ninth rib. 2. No new radiotracer-avid lesion. 3. No evidence of osteoblastic bone metastasis to the thoracic spine. Dictated by: Dictated on workstation # [id number]
== END ==
LOC: CARD 10:22
PROVIDERS: ATTEND Internal Medicine Hematology & Oncology
DX: C34.90 Malignant neoplasm of unspecified part of unspecified bronchus or lung (principal)
CPT/HCPCS: 71260; 74160; 78306

== ENCOUNTER 2017-09-12 07:43 | Day surgery (SDC) | payer OTHER ==
[~2017-09-12] VITALS: Ht 160 cm; Wt 65.9 kg
[2017-09-12] VITALS (16 sets, daily range): BP systolic 110–173; BP diastolic 52–86
[~2017-09-12 07:43] MED LIST changes: -ACET325T49 PO; -APIX2.5T PO; -CATHETER FLUSH 10 ML SYR IV PRN; -FLUO15CR2 TP; -IOHEXOL 350 MG/ML 100 ML (OMNIPAQUE 350) VIAL IV ONE; -LEVO88TA54 PO; -LISI-556 PO; -NF-CLIN1% TP; -NS 250 ML (IVPB) BAG IV ONE; -OMEP20CA12 PO; -OSIM80TA PO; -POLY15DR14 OU; -RECEIVED CONTRAST (Hold Metformin) IV SCH; -TIMO5DRO5 OD; -TOBR5DRO2 OU
[2017-09-12] MEDS ORDERED: NS IV 1000 ML 1,000 ML IV STA (07:48)
[2017-09-12] MEDS ORDERED: LIDOCAINE 1% INJ 50 ML (XYLOCAINE) VIAL ONE (07:49)
--- OUTSIDE RECORDS SUMMARY | 2017-09-12 07:50 | XMS REPORT | Continuity of Care Document ---
Author Author [facility] Organization [facility] Address Unknown Phone Unavailable Allergies Active Description Code Type Severity Reaction Onset Reported/Identified Relationship to Patient Clinical Status Yes No Known Drug Allergies [id number] Drug Allergy Unknown N/A 10/16/2014 Medications There is no data. Problems Date Dx Coded Attending Type Code [...] TOMLINSON MD Ot 414.01 CORONARY ATHEROSCLEROSIS OF [place] CORON 10/16/2014 CHANEL TOMLINSON MD Ot 416.8 CHR PULMON HEART DIS NEC 10/16/2014 CHANEL TOMLINSON MD Ot 427.69 PREMATURE BEATS NEC 10/16/2014 CHANEL TOMLINSON MD Ot 780.2 SYNCOPE AND COLLAPSE 10/16/2014 CHANEL TOMLINSON MD Ot 786.09 RESPIRATORY ABNORM NEC 10/16/2014 CHANEL OTMLINSON MD Ot V12.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 10/16/2014 CHANEL TOMLINSON MD Ot V58.69 OT MED,LT,CURRENT USE 10/16/2014 MANUEL CARVER MD Ot V76.12 10/16/2014 [...] KAYLIE HAMPTON DO M Ot 162.9 11/07/2014 MANUEL CARVER MD Ot V76.12 11/07/2014 DAVI SMITH, CHANEL Landin [...] Landin Ot 786.05 11/07/2014 KAYLIE HAMPTON DO Ot 416.8 11/07/2014 KAYLIE HAMPTON DO M Ot 453.40 11/07/2014 KAYLIE HAMPTON DO M Ot 786.05 11/07/2014 KAYLIE HAMPTON DO M Ot 793.19 11/07/2014 KAYLIE HAMPTON DO M Ot 162.9 11/15/2014 KAYLIE HAMPTON DO M Ot 786.05 11/15/2014 KAYLIE HAMPTON DO M Ot 786.6 11/27/2014 MANUEL CARVER MD Ot V76.12 11/27/2014 CHANEL TOMLINSON MD Ot 242.00 11/27/2014 DAVI SMITH, CHANEL Landin Ot 401.9 11/27/2014 DAVI SMITH, CHANEL Landin [...] KAYLIE HAMPTON DO M Ot 453.40 11/27/2014 DALILA HAMPTON DOSON M Ot 786.05 11/27/2014 KAYLIE HAMPTON DO M Ot 793.19 11/27/2014 KAYLIE HAMPTON DO M Ot 162.9 11/27/2014 DALILA HAMPTON DOSON M Ot 786.05 11/27/2014 DALILA HAMPTON DOSON M Ot 786.6 12/02/2014 MEMODALILA SCHULTE DOSON M Ot 786.05 12/02/2014 DALILA HAMPTON DOSON M Ot 786.6 12/03/2014 DALILA HAMPTON DOSON M Ot 786.05 12/03/2014 DALILA HAMPTON DOSON M Ot 786.6 12/04/2014 MANUEL CARVER MD Ot V76.12 12/04/2014 DAVI SMITH, CHANEL Landin Ot 242.00 [...] DAVI SMITH, CHANEL Landin Ot 786.05 12/04/2014 MEMO DO, KAYLIE M Ot 416.8 12/04/2014 MEMO DO, KAYLIE M Ot 453.40 12/04/2014 MEMO DO, KAYLIE M Ot 786.05 12/04/2014 MEMO DO, KAYLIE M Ot 793.19 12/04/2014 MEMO DO, KAYLIE M Ot 162.9 12/04/2014 MEMO DO, KAYLIE M Ot 786.05 12/04/2014 MEMO DO, KAYLIE M Ot 786.6 12/04/2014 MEHUL SMITH, MANUEL Amaral Ot V76.12 12/04/2014 DAVI SMITH, CHANEL Landin Ot 242.00 12/04/2014 DAVI SMITH, CHANEL Landin Ot 401.9 12/04/2014 DAVI SMITH, CHANEL Landin Ot 729.5 12/04/2014 DAVI SMITH, CHANEL Landin Ot 785.1 12/04/2014 DAVI SMITH, CHANEL J Ot 786.05 12/04/2014 DAVI SMITH, CHANEL Landin Ot 786.09 12/04/2014 DAVI SMITH, CHANEL Landin Ot V12.51 12/04/2014 DAVI SMITH, CHANEL Landin Ot 242.00 12/04/2014 DAVI SMITH, CHANEL Landin Ot 453.40 12/04/2014 DAVI SMITH, CHANEL Landin Ot 785.1 12/04/2014 DAVI SMITH, CHANEL Landin Ot 786.05 12/04/2014 MEMO DO, KAYLIE M [...] YENY BRONCH/LUNG NOS 12/10/2014 MEHUL SMITH, MANUEL N Ot V76.12 12/10/2014 DAVI SMITH, CHANEL Landin [...] DO Ot 162.9 12/10/2014 KAYLIE HAMPTON DO M Ot 786.05 12/10/2014 KAYLIE HAMPTON DO M Ot 786.6 12/12/2014 SANTIAGO GARZA Ot 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 12/12/2014 SANTIAGO GARZA Ot 785.6 ENLARGEMENT LYMPH NODES 12/13/2014 KAYLIE HAMPTON DO Ot 416.8 12/13/2014 KAYLIE HAMPTON DO Ot 453.40 12/13/2014 DALILA HAMPTON DOSON M Ot 786.05 12/13/2014 KAYLIE HAMPTON DO M Ot 793.19 12/13/2014 SANTIAGO GARZA Ot 162.9 12/13/2014 SANTIAGO GARZA Ot 242.00 12/13/2014 SANTIAGO GARZA N Ot 416.8 12/13/2014 SANTIAGO GARZA Ot V58.69 12/13/2014 KAYLIE HAMPTON DO Ot 786.05 12/13/2014 KAYLIE HAMPTON DO Ot 786.6 12/13/2014 KAYLIE HAMPTON DO Ot 162.9 12/13/2014 DAVI SMITH, CHANEL J Ot 242.00 12/13/2014 DAVI SMITH, CHANEL J Ot 401.9 12/13/2014 DAVI SMITH, CHANEL J Ot 729.5 12/13/2014 DAVI SMITH, CHANEL J Ot 785.1 12/13/2014 DAVI SMITH, ABELHAR J Ot 786.05 12/13/2014 DAVI SMITH, ABELHAR J Ot 786.09 12/13/2014 DAVI SMITH, CHANEL J Ot V12.51 12/13/2014 DAVI SMITH, CHANEL J Ot 242.00 12/13/2014 DAVI SMITH, CHANEL [...] CHANEL J Ot 786.09 12/19/2014 DAVI SMITH, CHANEL J Ot V12.51 12/19/2014 DAVI SMITH, CHANEL J Ot 242.00 12/19/2014 DAVI SMITH, CHANEL J Ot 453.40 12/19/2014 DAVI SMITH, CHANEL J Ot 785.1 12/19/2014 DAVI SMITH, ABELHAR J Ot 786.05 12/19/2014 KAYLIE HAMPTON DO Ot 416.8 12/19/2014 KAYLIE HAMPTON DO M Ot 453.40 12/19/2014 KAYLIE HAMPTON DO M Ot 786.05 12/19/2014 KAYLIE HAMPTON DO Ot 793.19 12/19/2014 KAYLIE HAMPTON DO Ot 162.9 12/19/2014 KAYLIE HAMPTON DO M Ot 786.05 12/19/2014 KAYLIE HAMPTON DO M Ot 786.6 01/16/2015 SANTIAGO GARZA Ot 162.9 01/22/2015 KAYLA, BOBAN N Ot [...] DAVI SMITH, CHANEL Landin Ot 729.5 05/09/2015 CHANEL TOMLINSON MD Ot 785.1 05/09/2015 DAVI SMITH, CHANEL Landin Ot 786.05 05/09/2015 DAVI SMITH, CHANEL Landin Ot 786.09 05/09/2015 DAVI SMITH, CHANEL Landin Ot V12.51 05/09/2015 DAVI SMITH, CHANEL Landin Ot 242.00 05/09/2015 DAVI SMITH, CHANEL Landin Ot 453.40 05/09/2015 CHANEL TOMLINSON MD Ot 785.1 05/09/2015 DAVI SMITH, CHANEL Landin Ot 786.05 05/09/2015 KAYLIE HAMPTON DO Ot 416.8 05/09/2015 KAYLIE HAMPTON DO Ot 453.40 05/09/2015 KAYLIE HAMPTON DO M Ot 786.05 05/09/2015 KAYLIE HAMPTON DO M Ot 793.19 05/09/2015 DALILA HAMPTON DOSON M Ot 162.9 05/09/2015 KAYLIE HAMPTON DO M Ot 786.05 05/09/2015 KAYLIE HAMPTON DO Ot 786.6 05/09/2015 SANTIAGO GARZA Ot 162.9 05/09/2015 MARTIN MUHAMMAD MARKETING COMMUNICATIONS ASSOCIATE Ot 162.9 05/09/2015 MARTIN MUHAMMAD MARKETING COMMUNICATIONS ASSOCIATE Ot 196.9 05/09/2015 MARTIN MUHAMMAD MARKETING COMMUNICATIONS ASSOCIATE Ot 242.00 05/09/2015 MARTIN MUHAMMAD MARKETING COMMUNICATIONS ASSOCIATE Ot V58.69 05/09/2015 SANTIAGO GARZA Ot C34.90 05/09/2015 SANTIAGO GARZA Ot E05.00 05/09/2015 SANTIAGO GARZA Ot Z79.899 05/09/2015 MARTIN MUHAMMAD MARKETING COMMUNICATIONS ASSOCIATE Ot C34.90 05/09/2015 MARTIN MUHAMMAD MARKETING COMMUNICATIONS ASSOCIATE Ot E05.00 05/09/2015 MARTIN [place]AM[place] MARKETING COMMUNICATIONS ASSOCIATE Ot Z79.899 05/26/2015 RADHA HALL DO L Ot E05.00 05/26/2015 RADHA HALL DO L Ot R25.2 06/17/2015 MARTIN MUHAMMAD MARKETING COMMUNICATIONS ASSOCIATE Ot 162.9 06/17/2015 MARTIN MUHAMMAD MARKETING COMMUNICATIONS ASSOCIATE Ot 196.9 06/17/2015 MARTIN MUHAMMAD S MARKETING COMMUNICATIONS ASSOCIATE Ot 242.00 06/17/2015 MARTIN MUHAMMAD S MARKETING COMMUNICATIONS ASSOCIATE Ot V58.69 06/17/2015 SANTIAGO GARZA N Ot C34.90 06/17/2015 SANTIAGO GARZA N Ot E05.00 06/17/2015 SANTIAGO GARZA N Ot Z79.899 06/17/2015 MUHAMMADMARTIN Lawrence S MARKETING COMMUNICATIONS ASSOCIATE Ot C34.90 06/17/2015 MARTIN MUHAMMAD S MARKETING COMMUNICATIONS ASSOCIATE Ot E05.00 06/17/2015 MARTIN MUHAMMAD S MARKETING COMMUNICATIONS ASSOCIATE Ot Z79.899 06/17/2015 URBANA DO, RADHA L Ot E05.00 06/17/2015 HALL DO, RADHA L Ot E05.00 06/17/2015 DO, RADHA L Ot R25.2 06/17/2015 SANTIAGO GAZRA N Ot C34.81 06/25/2015 MARTIN MUHAMMAD S MARKETING COMMUNICATIONS ASSOCIATE Ot 162.9 06/25/2015 MARTIN MUHAMMAD S MARKETING COMMUNICATIONS ASSOCIATE Ot 196.9 06/25/2015 MARTIN MUHAMMAD S MARKETING COMMUNICATIONS ASSOCIATE Ot 242.00 06/25/2015 MARTIN MUHAMMAD S MARKETING COMMUNICATIONS ASSOCIATE Ot V58.69 06/25/2015 SANTIAGO GARZA N Ot C34.90 06/25/2015 SANTIAGO GARZA N Ot E05.00 06/25/2015 SANTIAGO GARZA N Ot Z79.899 06/25/2015 MARTIN MUHAMMAD S MARKETING COMMUNICATIONS ASSOCIATE Ot C34.90 06/25/2015 MARTIN MUHAMMAD S MARKETING COMMUNICATIONS ASSOCIATE Ot E05.00 06/25/2015 MARTIN MUHAMMAD S MARKETING COMMUNICATIONS ASSOCIATE Ot Z79.899 06/25/2015 HALL DO, RADHA L Ot E05.00 06/25/2015 HALL DO, RADHA L Ot E05.00 06/25/2015 URBANA DO, RADHA L Ot R25.2 06/25/2015 KELLEE GARZAAN N Ot C34.81 06/26/2015 KAYLAKELLEE SOLARESAN N Ot 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 06/26/2015 KAYLASANTIAGO N Ot E05.00 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 06/26/2015 SANTIAGO GARZA Cristin Ot 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 07/04/2015 MEHUL SMITH, MANUEL Amaral Ot V76.12 07/04/2015 DAVI SMITH, CHANEL Landin Ot 242.00 07/04/2015 DAVI SMITH, CHANEL Landin Ot 401.9 07/04/2015 DAVI SMITH, CHANEL Landin Ot 729.5 07/04/2015 DAVI SMITH, CHANEL Landin Ot 785.1 07/04/2015 DAVI SMITH, CHANEL Landin Ot 786.05 07/04/2015 DAVI SMITH, CHANEL Landin Ot 786.09 07/04/2015 DAVI SMITH, CHANEL Landin Ot V12.51 07/04/2015 DVAI SMITH, CHANEL Landin Ot 242.00 07/04/2015 DAVI SMITH, CHANEL Landin Ot 453.40 07/04/2015 DAVI SMITH, CHANEL Landin Ot 785.1 07/04/2015 DAVI SMITH, CHANEL Landin Ot 786.05 07/04/2015 KAYLIE HAMPTON DO Ot 416.8 07/04/2015 KAYLIE HAMPTON DO Ot 453.40 07/04/2015 KAYLIE HAMPTON DO M Ot 786.05 07/04/2015 KAYLIE HAMPTON DO M Ot 793.19 07/04/2015 KAYLIE HAMPTON DO M Ot 162.9 07/04/2015 KAYLIE HAMPTON DO M Ot 786.05 07/04/2015 KAYLIE HAMPTON DO M Ot 786.6 07/04/2015 SANTIAGO GARZA Cristin Ot 162.9 07/04/2015 MARTIN MUHAMMAD MARKETING COMMUNICATIONS ASSOCIATE Ot 162.9 07/04/2015 MARTIN MUHAMMAD MARKETING COMMUNICATIONS ASSOCIATE Ot 196.9 07/04/2015 MARTIN MUHAMMAD MARKETING COMMUNICATIONS ASSOCIATE Ot 242.00 07/04/2015 MARTIN MUHAMMAD MARKETING COMMUNICATIONS ASSOCIATE Ot V58.69 07/04/2015 MARTIN MUHAMMAD MARKETING COMMUNICATIONS ASSOCIATE Ot C34.90 07/04/2015 MARTIN MUHAMMAD MARKETING COMMUNICATIONS ASSOCIATE Ot E05.00 07/04/2015 MARTIN MUHAMMAD MARKETING COMMUNICATIONS ASSOCIATE Ot Z79.899 07/04/2015 RADHA HALL DO Ot E05.00 07/04/2015 RAFAEL BARTLETT RADHA L Ot E05.00 07/04/2015 HALL DO, RADHA L Ot R25.2 07/04/2015 KAYLA, BOBAN N Ot C34.81 07/04/2015 KAYLA, BOBAN N Ot C34.90 07/04/2015 KAYLA, BOBAN N Ot E05.00 07/04/2015 KAYLA, BOBAN N Ot Z79.899 07/15/2015 KAYLA, BOBAN N Ot C34.90 07/15/2015 KAYLA, BOBAN N Ot E05.00 07/15/2015 KAYLA, KELLEEAN N Ot Z79.899 09/17/2015 MARTIN MUHAMMAD S MARKETING COMMUNICATIONS ASSOCIATE Ot C34.81 09/17/2015 MARTIN MUHAMMAD S MARKETING COMMUNICATIONS ASSOCIATE Ot C79.89 09/17/2015 MARTIN MUHAMMAD S MARKETING COMMUNICATIONS ASSOCIATE Ot E05.00 09/17/2015 MARTIN MUHAMMAD S MARKETING COMMUNICATIONS ASSOCIATE Ot L27.0 09/17/2015 MARTIN MUHAMMAD S MARKETING COMMUNICATIONS ASSOCIATE Ot T45.1X5A 09/17/2015 ANSLEY MUHAMMADHEATHER S MARKETING COMMUNICATIONS ASSOCIATE Ot Z79.899 09/18/2015 HALLJOIE Randolph DOISON L Ot E05.00 09/18/2015 MARTIN MUHAMMAD S MARKETING COMMUNICATIONS ASSOCIATE Ot C34.81 09/18/2015 MARTIN MUHAMMAD S MARKETING COMMUNICATIONS ASSOCIATE Ot C79.89 09/18/2015 MARTIN MUHAMMAD S MARKETING COMMUNICATIONS ASSOCIATE Ot E05.00 09/18/2015 MARTIN MUHAMMAD S MARKETING COMMUNICATIONS ASSOCIATE Ot L27.0 09/18/2015 ANSLEY MUHAMMADHEATHER S MARKETING COMMUNICATIONS ASSOCIATE Ot T45.1X5A 09/18/2015 MARTIN MUHAMMAD S MARKETING COMMUNICATIONS ASSOCIATE Ot Z79.899 09/18/2015 KELLEE GARZAAN N Ot C34.81 09/18/2015 KAYLAKELLEE SOLARESAN N Ot E05.00 09/18/2015 KAYLA, BOBAN N Ot Z79.899 09/18/2015 Ot C34.81 09/23/2015 MARTIN MUHAMMAD S MARKETING COMMUNICATIONS ASSOCIATE Ot C34.81 09/23/2015 MARTIN MUHAMMAD S MARKETING COMMUNICATIONS ASSOCIATE Ot C79.89 09/23/2015 MARTIN MUHAMMAD S MARKETING COMMUNICATIONS ASSOCIATE Ot E05.00 09/23/2015 MARTIN MUHAMMAD MARKETING COMMUNICATIONS ASSOCIATE Ot L27.0 09/23/2015 MARTIN MUHAMMAD MARKETING COMMUNICATIONS ASSOCIATE Ot T45.1X5A 09/23/2015 MARTIN MUHAM[place] MARKETING COMMUNICATIONS ASSOCIATE Ot Z79.899 10/01/2015 MARTIN MUHAMMAD MARKETING COMMUNICATIONS ASSOCIATE Ot C34.81 10/01/2015 MARTIN MUHAMMAD MARKETING COMMUNICATIONS ASSOCIATE Ot E05.00 10/01/2015 MARTIN MUHAMMAD MARKETING COMMUNICATIONS ASSOCIATE Ot L27.0 10/01/2015 MARTIN MUHAMMAD MARKETING COMMUNICATIONS ASSOCIATE Ot T45.1X5A 10/01/2015 MARTIN MUHAMMAD MARKETING COMMUNICATIONS ASSOCIATE Ot Z79.899 10/01/2015 RAFAEL BARTLETT, RADHA L Ot E05.00 10/01/2015 RAFAEL BARTLETT, RADHA L Ot I10 10/01/2015 Ot C34.81 10/01/2015 RAFAEL BARTLETT, RADHA L Ot E05.00 10/01/2015 MARTIN MUHAMMAD MARKETING COMMUNICATIONS ASSOCIATE Ot C34.81 10/03/2015 MARTIN MUHAMMAD MARKETING COMMUNICATIONS ASSOCIATE Ot C34.81 10/06/2015 MEHUL SMITH, MANUEL Amaral Ot V76.12 10/06/2015 DAVI SMITH, CHANEL Landin Ot 242.00 10/06/2015 DAVI SMITH, CHANEL Landin Ot 401.9 10/06/2015 DAVI SMITH, CHANEL Landin Ot 729.5 10/06/2015 DAVI SMITH, CHANEL Landin Ot 785.1 10/06/2015 DAVI SMITH, CHANEL Landin Ot 786.05 10/06/2015 DAVI SMITH, CHANEL Landin Ot 786.09 10/06/2015 DAVI SMITH, CHANEL Landin Ot V12.51 10/06/2015 DAVI SMITH, CHANEL Landin Ot 242.00 10/06/2015 DAVI SMITH, CHANEL Landin Ot 453.40 10/06/2015 DAVI SMITH, CHANEL Landin Ot 785.1 10/06/2015 CHANEL TOMLINSON MD Ot 786.05 10/06/2015 KAYLIE HAMPTON DO Ot 416.8 10/06/2015 KAYLIE HAMPTON DO Ot 453.40 10/06/2015 KAYLIE HAMPTON DO Ot 786.05 10/06/2015 KAYLIE HAMPTON DO Ot 793.19 10/06/2015 KAYLIE HAMPTON DO M Ot 162.9 10/06/2015 KAYLIE HAMPTON DO Ot 786.05 10/06/2015 KAYLIE HAMPTON DO Ot 786.6 10/06/2015 SANTIAGO GARZA N Ot 162.9 10/06/2015 JB MARTIN S MARKETING COMMUNICATIONS ASSOCIATE Ot 162.9 10/06/2015 ANSLEY MUHAMMADHEATHER S MARKETING COMMUNICATIONS ASSOCIATE Ot 196.9 10/06/2015 ANSLEY MUHAMMADHEATHER S MARKETING COMMUNICATIONS ASSOCIATE Ot 242.00 10/06/2015 JB MARTIN S MARKETING COMMUNICATIONS ASSOCIATE Ot V58.69 10/06/2015 JB ANSLEYAH S MARKETING COMMUNICATIONS ASSOCIATE Ot C34.90 10/06/2015 ANSLEY MUHAMMADAH S MARKETING COMMUNICATIONS ASSOCIATE Ot E05.00 10/06/2015 MARTIN MUHAMMAD S MARKETING COMMUNICATIONS ASSOCIATE Ot Z79.899 10/06/2015 RAFAEL BARTLETT RADHA L Ot E05.00 10/06/2015 RAFAEL BARTLETT RADHA L Ot E05.00 10/06/2015 JOIE HALL DOISON L Ot R25.2 10/06/2015 SANTIAGO GARZA N Ot C34.81 10/06/2015 MARTIN MUHAMMAD S MARKETING COMMUNICATIONS ASSOCIATE Ot C34.81 10/06/2015 MARTIN MUHAMMAD S MARKETING COMMUNICATIONS ASSOCIATE Ot E05.00 10/06/2015 MARTIN MUHAMMAD S MARKETING COMMUNICATIONS ASSOCIATE Ot L27.0 10/06/2015 MARTIN MUHAMMAD S MARKETING COMMUNICATIONS ASSOCIATE Ot T45.1X5A 10/06/2015 MARTIN MUHAMMAD S MARKETING COMMUNICATIONS ASSOCIATE Ot Z79.899 10/06/2015 KAYLA SANTIAGO N Ot C34.81 10/06/2015 KAYLA KELLEEAN N Ot E05.00 10/06/2015 KAYLA BOBAN N Ot Z79.899 10/06/2015 RAFAEL BARTLETT RADHA L Ot E05.00 10/06/2015 RAFAEL BARTLETT RADHA L Ot I10 10/06/2015 Ot C34.81 10/06/2015 RAFAEL BARTLETT RADHA L Ot E05.00 10/06/2015 MARTIN MUHAMMAD S MARKETING COMMUNICATIONS ASSOCIATE Ot C34.81 10/06/2015 MARTIN MUHAMMAD S MARKETING COMMUNICATIONS ASSOCIATE Ot C79.89 10/06/2015 MARTIN MUHAMMAD MARKETING COMMUNICATIONS ASSOCIATE Ot E05.00 10/06/2015 MARTIN MUHAMMAD MARKETING COMMUNICATIONS ASSOCIATE Ot L27.0 10/06/2015 MARTIN MUHAMMAD MARKETING COMMUNICATIONS ASSOCIATE Ot T45.1X5A 10/06/2015 MARTIN MUHAMMAD MARKETING COMMUNICATIONS ASSOCIATE Ot Z79.899 10/06/2015 MARTIN MUHAMMAD MARKETING COMMUNICATIONS ASSOCIATE Ot C34.81 10/08/2015 RADHA HALL DO Ot E05.00 10/12/2015 KELLEE GARZAMEENAKSHI Amaral Ot 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 10/12/2015 SANTIAGO GARZA Ot E05.00 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 10/12/2015 SANTIAGO GARZA Ot Z79.899 OTHER RETIREMENT (CURRENT) DRUG THERAPY 11/11/2015 MARTIN MUHAMMAD MARKETING COMMUNICATIONS ASSOCIATE Ot 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 [...] FINDING OF [place]IS[place] 11/19/2015 KAYLIE HAMPTON DO Miranda Ot 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 11/19/2015 KAYLIE HAMPTON DO Miranda Ot 786.05 SHORTNESS OF BREATH 11/19/2015 MEMO KAYLIE Miranda Ot 786.6 CHEST SWELLING/MASS/LUMP 11/19/2015 SANTIAGO GARZA Ot 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 11/19/2015 MARTIN MUHAMMAD MARKETING COMMUNICATIONS ASSOCIATE Ot 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 11/19/2015 MARTIN MUHAMMAD MARKETING COMMUNICATIONS ASSOCIATE Ot 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 11/19/2015 MARTIN MUHAMMADP Ot 242.00 TOX DIF GOITER NO CRISIS 11/19/2015 MARTIN MUHAMMADP Ot V58.69 OT MED,LT,CURRENT USE 11/19/2015 MARTIN MUHAMMAD MARKETING COMMUNICATIONS ASSOCIATE Ot 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 11/19/2015 MARTIN MUHAMMADP Ot E05.00 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 11/19/2015 MARTIN MUHAMMADP Ot 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 11/19/2015 JOIE HALL DOISON L Ot E05.00 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 11/19/2015 JOIE HALL DOISON L Ot E05.00 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 11/19/2015 RADHA HALL DO Ot R25.2 CRAMP AND SPASM 11/19/2015 SANTIAGO GARZA Ot 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 11/19/2015 MARTIN MUHAMMAD MARKETING COMMUNICATIONS ASSOCIATE Ot 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 11/19/2015 MARTIN MUHAMMAD MARKETING COMMUNICATIONS ASSOCIATE Ot E05.00 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 11/19/2015 MUHAMMAD, HILAH S MARKETING COMMUNICATIONS ASSOCIATE Ot L27.0 GEN SKIN ERUPTION DUE TO DRUGS AND MEDS 11/19/2015 MARTIN MUHAMMAD MARKETING COMMUNICATIONS ASSOCIATE Ot T45.1X5A ADVERSE EFFECT OF ANTINEOPLASTIC AND IMM 11/19/2015 MARTIN MUHAMMAD MARKETING COMMUNICATIONS ASSOCIATE Ot 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 11/19/2015 RAFAEL BARTLETT, RADHA L Ot E05.00 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 11/19/2015 RAFAEL BARTLETT, RADHA L Ot I10 ESSENTIAL (PRIMARY) HYPERTENSION 11/19/2015 Ot 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 11/19/2015 RAFAEL BARTLETT, RADHA L Ot E05.00 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 11/19/2015 MARTIN MUHAMMAD Ot 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 11/19/2015 MARTIN MUHAMMADP Ot C79.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 11/19/2015 MARTIN MUHAMMADP Ot E05.00 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 11/19/2015 MARTIN MUHAMMAD Ot L27.0 GEN SKIN ERUPTION DUE TO DRUGS AND MEDS 11/19/2015 MARTIN MUHAMMAD Ot T45.1X5A ADVERSE EFFECT OF ANTINEOPLASTIC AND IMM 11/19/2015 MARTIN MUHAMMADP Ot 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 11/19/2015 MARTIN MUHAMMAD MARKETING COMMUNICATIONS ASSOCIATE Ot 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 11/19/2015 RAFAEL BARTLETT RADHA L Ot E05.00 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 11/19/2015 SANTIAGO GARZA Ot 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 11/19/2015 SANTIAGO GARZA Ot E05.00 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 11/19/2015 SANTIAGO GARZA Ot Z79.899 OTHER RETIREMENT (CURRENT) DRUG THERAPY 11/19/2015 SANTIAGO GARZA N Ot 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 11/19/2015 KAYLA, BOBAN N Ot E05.00 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 11/19/2015 SANTIAGO GARZA N Ot Z79.899 OTHER RETIREMENT (CURRENT) DRUG THERAPY 11/20/2015 SANTIAGO GARZA N Ot 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 11/20/2015 SANTIAGO GARZA Cristin Ot E05.00 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 11/20/2015 SANTIAGO GARZA N Ot Z79.899 OTHER RETIREMENT (CURRENT) DRUG THERAPY 11/20/2015 MARTIN MUHAMMAD MARKETING COMMUNICATIONS ASSOCIATE Ot 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 11/20/2015 MARTIN MUHAMMADP Ot E05.00 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 11/20/2015 MARTIN MUHAMMAD MARKETING COMMUNICATIONS ASSOCIATE Ot 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 11/21/2015 MARTIN MUHAMMAD MARKETING COMMUNICATIONS ASSOCIATE Ot 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 11/21/2015 MARTIN MUHAMMAD MARKETING COMMUNICATIONS ASSOCIATE Ot C79.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 11/21/2015 MARTIN MUHAMMADP Ot E05.00 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 11/21/2015 MARTIN MUHAMMADP Ot R21 RASH AND OTHER NONSPECIFIC SKIN ERUPTION 11/21/2015 MARTIN MUHAMMAD MARKETING COMMUNICATIONS ASSOCIATE Ot 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 11/21/2015 MARTIN MUHAMMADP Ot 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 11/21/2015 MARTIN MUHAMMAD MARKETING COMMUNICATIONS ASSOCIATE Ot C79.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 11/21/2015 MARTIN MUHAMMAD MARKETING COMMUNICATIONS ASSOCIATE Ot E05.00 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 11/21/2015 MARTIN MUHAMMAD MARKETING COMMUNICATIONS ASSOCIATE Ot R21 RASH AND OTHER NONSPECIFIC SKIN ERUPTION 11/21/2015 MARTIN MUHAMMAD MARKETING COMMUNICATIONS ASSOCIATE Ot 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 11/27/2015 MARTIN MUHAMMAD MARKETING COMMUNICATIONS ASSOCIATE Ot 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 11/27/2015 MARTIN MUHAMMAD MARKETING COMMUNICATIONS ASSOCIATE Ot C79.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 11/27/2015 MARTIN MUHAMMAD MARKETING COMMUNICATIONS ASSOCIATE Ot E05.00 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 11/27/2015 MARTIN MUHAMMAD MARKETING COMMUNICATIONS ASSOCIATE Ot L27.0 GEN SKIN ERUPTION DUE TO DRUGS AND MEDS 11/27/2015 MARTIN MUHAMMAD MARKETING COMMUNICATIONS ASSOCIATE Ot T45.1X5A ADVERSE EFFECT OF ANTINEOPLASTIC AND IMM 11/27/2015 MARTIN MUHAMMAD MARKETING COMMUNICATIONS ASSOCIATE Ot 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 11/27/2015 RADHA HALL DO L Ot E05.00 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 12/25/2015 MARTIN MUHAMMADP Ot 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 12/25/2015 MARTIN MUHAMMAD MARKETING COMMUNICATIONS ASSOCIATE Ot C79.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 12/25/2015 MARTIN MUHAMMADP Ot E05.00 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 12/25/2015 MARTIN MUHAMMADP Ot L27.0 GEN SKIN ERUPTION DUE TO DRUGS AND MEDS 12/25/2015 MARTIN MUHAMMADP Ot T45.1X5A ADVERSE EFFECT OF ANTINEOPLASTIC AND IMM 12/25/2015 MARTIN MUHAMMADP Ot 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 12/25/2015 RADHA HALL DO [...] 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 01/08/2016 MUHAMMAD, HILAH S MARKETING COMMUNICATIONS ASSOCIATE Ot 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 01/08/2016 MARTIN MUHAMMAD MARKETING COMMUNICATIONS ASSOCIATE Ot C79.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 01/08/2016 MARTIN MUHAMMADP Ot E05.00 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 01/08/2016 MARTIN MUHAMMADP Ot R21 RASH AND OTHER NONSPECIFIC SKIN ERUPTION 01/08/2016 MARTIN MUHAMMAD MARKETING COMMUNICATIONS ASSOCIATE Ot Z79.899 OTHER RETIREMENT (CURRENT) DRUG THERAPY 01/08/2016 DAVI SMITH, CHANEL Landin Ot E05.00 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 01/08/2016 RADHA HALL DO Ot E05.00 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 01/08/2016 RADHA HALL DO Ot M54.2 CERVICALGIA 01/08/2016 MARTIN MUHAMMADP Ot 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 01/08/2016 MARTIN MUHAMMADP Ot C79.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 01/08/2016 MARTIN MUHAMMADP Ot E05.00 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 01/08/2016 MARTIN MUHAMMADP Ot R21 RASH AND OTHER NONSPECIFIC SKIN ERUPTION 01/08/2016 MARTIN MUHAMMADP Ot 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 01/08/2016 MARTIN MUHAMMAD Ot 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 01/08/2016 MARTIN MUHAMMADP Ot E05.00 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 01/08/2016 MARTIN MUHAMMAD MARKETING COMMUNICATIONS ASSOCIATE Ot 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 01/09/2016 CHANEL TOMLINSON MD Ot E05.00 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 01/28/2016 MARTIN MUHAMMADP Ot 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 01/28/2016 MARTIN MUHAMMADP Ot 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 01/28/2016 MARTIN MUHAMMADP Ot 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 01/28/2016 MARTIN MUHAMMAD Ot C79.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 01/28/2016 MARTIN MUHAMMADP Ot E05.00 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 01/28/2016 MARTIN MUHAMMAD Ot R21 RASH AND OTHER NONSPECIFIC SKIN ERUPTION 01/28/2016 MARTIN MUHAMMADP Ot Z79.899 OTHER RETIREMENT (CURRENT) DRUG THERAPY 01/28/2016 JOIE HALL DOISON L Ot E05.00 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 01/28/2016 RADHA HALL DO L Ot M54.2 CERVICALGIA 01/28/2016 DAVI SMITH, CHANEL Landin Ot E05.00 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 01/29/2016 MARTIN MUHAMMAD Ot 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 02/03/2016 JOIE HALL DOISON L Ot E05.00 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 02/17/2016 SANTIAGO GARZA Ot 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 02/17/2016 SANTIAGO GARZA Ot E05.00 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 02/17/2016 SANTIAGO GARZA Ot 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 02/24/2016 MARTIN MUHAMMAD Ot 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00 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 03/29/2016 KAYLASANTIAGO N Ot Z79.899 OTHER RETIREMENT (CURRENT) DRUG THERAPY 03/30/2016 KAYLASANTIAGO N Ot 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 03/30/2016 KAYLASANTIAGO Ot E05.00 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 03/30/2016 KAYLASANTIAGO N Ot 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 05/12/2016 RAFAEL BARTLETT RADHA Ollie Ot E05.00 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 05/12/2016 SANTIAGO GARZA Ot 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 05/12/2016 KAYLASANTIAGO N Ot E05.00 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 05/12/2016 KAYLASANTIAGO Ot Z79.899 OTHER RETIREMENT (CURRENT) DRUG THERAPY 06/07/2016 MARTIN MUHAMMAD MARKETING COMMUNICATIONS ASSOCIATE Ot 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 06/08/2016 MARTIN MUHAMMAD MARKETING COMMUNICATIONS ASSOCIATE Ot 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 06/10/2016 MARTIN MUHAMMAD MARKETING COMMUNICATIONS ASSOCIATE Ot 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 06/27/2016 SANTIAGO GARZA Ot 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 06/27/2016 SANTIAGO GARZA Ot E05.00 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 06/27/2016 SANTIAGO GARZA Ot Z23 ENCOUNTER FOR IMMUNIZATION 06/27/2016 SANTIAGO GARZA N Ot Z79.899 OTHER RETIREMENT (CURRENT) DRUG THERAPY 07/06/2016 SANTIAGO GARZA N Ot 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 07/06/2016 SANTIAGO GARZA Ot R42 DIZZINESS AND GIDDINESS 07/06/2016 SANTIAGO GARZA N Ot 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 07/06/2016 SANTIAGO GARZA Cristin Ot R42 DIZZINESS AND GIDDINESS 07/06/2016 RAFAEL BARTLETT, RADHA L Ot E05.00 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 07/27/2016 RAFAEL DO, RADHA L Ot E05.00 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 07/28/2016 HALL DO, RADHA L Ot E05.00 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 08/31/2016 SANTIAGO GARZA N Ot 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 08/31/2016 SANTIAGO GARZA Cristin Ot E05.00 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 08/31/2016 KAYLAKELLEE SOLARESMEENAKSHI Amaral Ot 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 09/03/2016 Ot 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 09/16/2016 Ot 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 09/16/2016 SANTIAGO GARZA N Ot 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UPPER LOBE, RIGHT 09/16/2016 KAYLA KELLEEMEENAKSHI N Ot 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 09/24/2016 SANTIAGO GARZA N Ot 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UPPER LOBE, RIGHT 09/24/2016 KAYLA SANTIAGO N Ot 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 10/07/2016 KAYLA KELLEEMEENAKSHI N Ot 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UPPER LOBE, RIGHT 10/07/2016 SANTIAGO GARZA N Ot 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 11/09/2016 MARTIN MUHAMMADP Ot 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 11/09/2016 MARTIN MUHAMMAD MARKETING COMMUNICATIONS ASSOCIATE Ot I25.10 ATHSCL HEART DISEASE OF [place] CORONARY 11/09/2016 MARTIN MUHAMMADP Ot 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 PULMONARY HYPERTENSION 11/09/2016 MARTIN MUHAMMAD MARKETING COMMUNICATIONS ASSOCIATE Ot Z79.899 OTHER RETIREMENT (CURRENT) DRUG THERAPY 11/23/2016 JB MARTIN Lawrence MARKETING COMMUNICATIONS ASSOCIATE Ot 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 11/23/2016 JB MARTIN Howard MARKETING COMMUNICATIONS ASSOCIATE Ot R52 PAIN, UNSPECIFIED 11/28/2016 SANTIAGO GARZA N Ot 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 11/28/2016 KAYLASANTIAGO SOLARES N Ot C79.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 11/28/2016 KAYLASANTIAGO N Ot E05.00 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 11/28/2016 KAYLAKELLEEAN N Ot I25.10 ATHSCL HEART DISEASE OF [place] CORONARY 11/28/2016 KAYLA BOBAN N Ot 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 PULMONARY HYPERTENSION 11/28/2016 KAYLAKELLEEAN N Ot M54.6 PAIN IN THORACIC SPINE 11/28/2016 KAYLAKELLEE SOLARESAN N Ot R05 COUGH 11/28/2016 KAYLA, SANTIAGO N Ot Z79.899 OTHER RETIREMENT (CURRENT) DRUG THERAPY 11/29/2016 SANTIAGO GARZA N Ot 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 11/29/2016 SANTIAGO GARZA N Ot C79.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 11/29/2016 KAYLASANTIAGO N Ot E05.00 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 11/29/2016 KAYLAKELLEE SOLARESAN N Ot I25.10 ATHSCL HEART DISEASE OF [place] CORONARY 11/29/2016 KAYLA KELLEEAN N Ot 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 PULMONARY HYPERTENSION 11/29/2016 KAYLA KELLEEAN N Ot M54.6 PAIN IN THORACIC SPINE 11/29/2016 KAYLA BOBAN N Ot R05 COUGH 11/29/2016 KAYLA, BOBAN N Ot Z79.899 OTHER RETIREMENT (CURRENT) DRUG THERAPY 12/03/2016 KAYLA BOBAN N Ot 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 12/03/2016 KAYLA BOBAN N Ot E05.00 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 12/03/2016 KAYLA KELLEEAN N Ot 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 12/08/2016 KAYLA, BOBAN N Ot 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 12/08/2016 SANTIAGO GARZA Cristin Ot E05.00 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 12/08/2016 SANTIAGO GARZA Cristin Ot Z79.899 OTHER RETIREMENT (CURRENT) DRUG THERAPY 12/31/2016 KAYLA KELLEEMEENAKSHI Cristin Ot 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 12/31/2016 KAYLA KELLEEMEENAKSHI Cristin Ot E05.00 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 12/31/2016 SANTIAGO GARZA Cristin Ot Z79.899 OTHER RETIREMENT (CURRENT) DRUG THERAPY 01/03/2017 SANTIAGO GARZA Cristin Ot 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 01/03/2017 SANTIAGO GARZA Cristin Ot E05.00 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 01/03/2017 SANTIAGO GARZA Cristin Ot E80.6 OTHER DISORDERS OF BILIRUBIN METABOLISM 01/03/2017 KAYLASANTIAGO Ot I25.10 ATHSCL HEART DISEASE OF [place] CORONARY 01/03/2017 KAYLASANTIAGO Ot 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 PULMONARY HYPERTENSION 01/03/2017 KAYLA KELLEEMEENAKSHI Cristin Ot 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 01/03/2017 SANTIAGO GARZA Cristin Ot Z82.49 FAMILY HX OF ISCHEM HEART DIS AND OTH DI 01/07/2017 LATRICE EUBANKS Ot 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 01/07/2017 LATRICE EUBANKS Ot I25.10 ATHSCL HEART DISEASE OF [place] CORONARY 01/07/2017 LATRICE EUBANKS Ot R00.2 PALPITATIONS 01/07/2017 LATRICE EUBANKS Ot R06.02 SHORTNESS OF BREATH 02/07/2017 LATRICE EUBANKS Ot 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 02/07/2017 LATRICE EUBANKS Ot I25.10 ATHSCL HEART DISEASE OF [place] CORONARY 02/07/2017 LATRICE EUBANKS Ot R00.2 PALPITATIONS 02/07/2017 LATRICE EUBANKS Ot R06.02 SHORTNESS OF BREATH 02/07/2017 SANTIAGO GARZA Ot 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 02/07/2017 SANTIAGO GARZA Ot Z51.11 ENCOUNTER FOR ANTINEOPLASTIC CHEMOTHERAP 03/01/2017 SANTIAGO GARZA Ot 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 03/01/2017 SANTIAGO GARZA Ot Z51.11 ENCOUNTER FOR ANTINEOPLASTIC CHEMOTHERAP 03/01/2017 LATRICE EUBANKS Ot 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 03/03/2017 SANTIAGO GARZA Ot Z82.49 FAMILY HX OF ISCHEM HEART DIS AND OTH DI 03/04/2017 SANTIAGO GARZA Ot 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 03/04/2017 SANTIAGO GARZA Ot E05.00 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 03/04/2017 SANTIAGO GARZA Ot E80.6 OTHER DISORDERS OF BILIRUBIN METABOLISM 03/04/2017 SANTIAGO GARZA Ot I25.10 ATHSCL HEART DISEASE OF [place] CORONARY 03/04/2017 KAYLA, BOBAN N Ot 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 PULMONARY HYPERTENSION 03/04/2017 KAYLA SANTIAGO N Ot 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 03/04/2017 KAYLA, SANTIAGO N Ot Z82.49 FAMILY HX OF ISCHEM HEART DIS AND OTH DI 03/08/2017 MARTIN MUHAMMAD MARKETING COMMUNICATIONS ASSOCIATE Ot 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 03/08/2017 MARTIN MUHAMMAD MARKETING COMMUNICATIONS ASSOCIATE Ot I26.99 OTHER PULMONARY EMBOLISM WITHOUT ACUTE C 03/08/2017 MARTIN MUHAMMAD S MARKETING COMMUNICATIONS ASSOCIATE Ot K76.89 OTHER SPECIFIED DISEASES OF [place] 03/08/2017 MARTIN MUHAMMAD S MARKETING COMMUNICATIONS ASSOCIATE Ot R91.8 OTHER NONSPECIFIC ABNORMAL FINDING OF [place] 03/10/2017 SANTIAGO GARZA N Ot 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 03/10/2017 KAYLA SANTIAGO Amaral Ot E05.00 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 03/10/2017 KAYLA, SANTIAGO N Ot E80.6 OTHER DISORDERS OF BILIRUBIN METABOLISM 03/10/2017 KAYLA, SANTIAGO N Ot I25.10 ATHSCL HEART DISEASE OF [place] CORONARY 03/10/2017 KAYLA SANTIAGO N Ot 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 PULMONARY HYPERTENSION 03/10/2017 KAYLA, SANTIAGO N Ot 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 03/10/2017 KAYLA SANTIAGO N Ot Z82.49 FAMILY HX OF ISCHEM HEART DIS AND OTH DI 03/10/2017 KAYLA, SANTIAGO Amaral Ot 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 03/10/2017 KAYLA SANTIAGO Amaral Ot E05.00 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 03/10/2017 KAYLA SANTIAGO N Ot E80.6 OTHER DISORDERS OF BILIRUBIN METABOLISM 03/10/2017 KAYLA, SANTIAGO N Ot I25.10 ATHSCL HEART DISEASE OF [place] CORONARY 03/10/2017 KAYLA SANTIAGO N Ot 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 PULMONARY HYPERTENSION 03/10/2017 KAYLA, SANTIAGO N Ot 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 03/10/2017 KAYLASANTIAGO N Ot Z82.49 FAMILY HX OF ISCHEM HEART DIS AND OTH DI 03/14/2017 SANTIAGO GARZA N Ot 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 03/14/2017 SANTIAGO GARZA Cristin Ot E05.00 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 03/14/2017 KAYLA SANTIAGO N Ot E80.6 OTHER DISORDERS OF BILIRUBIN METABOLISM 03/14/2017 KAYLA SANTIAGO N Ot I25.10 ATHSCL HEART DISEASE OF [place] CORONARY 03/14/2017 KAYLASANTIAGO N Ot 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 PULMONARY HYPERTENSION 03/14/2017 KAYLA SANTIAGO N Ot Z79.899 OTHER RETIREMENT (CURRENT) DRUG THERAPY 03/14/2017 KAYLA, SANTIAGO N Ot Z82.49 FAMILY HX OF ISCHEM HEART DIS AND OTH DI 03/18/2017 MARTIN MUHAMMAD MARKETING COMMUNICATIONS ASSOCIATE Ot 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 03/18/2017 MARTIN MUHAMMAD MARKETING COMMUNICATIONS ASSOCIATE Ot I26.99 OTHER PULMONARY EMBOLISM WITHOUT ACUTE C 03/18/2017 MARTIN MUHAMMAD MARKETING COMMUNICATIONS ASSOCIATE Ot K76.89 OTHER SPECIFIED DISEASES OF LIVER 03/18/2017 MARTIN MUHAMMAD MARKETING COMMUNICATIONS ASSOCIATE Ot R91.8 OTHER NONSPECIFIC ABNORMAL FINDING OF [place] 03/26/2017 KAYLASANTIAGO Ot 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 03/26/2017 KAYLA KELLEEMEENAKSHI Cristin Ot E05.00 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 03/26/2017 KAYLA SANTIAGO N Ot E80.6 OTHER DISORDERS OF BILIRUBIN METABOLISM 03/26/2017 KAYLASANTIAGO N Ot I25.10 ATHSCL HEART DISEASE OF [place] CORONARY 03/26/2017 KAYLA SANTIAGO N Ot 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 PULMONARY HYPERTENSION 03/26/2017 KAYLASANTIAGO N Ot Z79.899 OTHER RETIREMENT (CURRENT) DRUG THERAPY 03/26/2017 KAYLASANTIAGO N Ot Z82.49 FAMILY HX OF ISCHEM HEART DIS AND OTH DI 04/11/2017 KAYLASANTIAGO N Ot 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 04/11/2017 KAYLA SANTIAGO N Ot E05.00 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 04/11/2017 SANTIAGO GARZA N Ot E80.6 OTHER DISORDERS OF BILIRUBIN METABOLISM 04/11/2017 SANTIAGO GARZA N Ot I25.10 ATHSCL HEART DISEASE OF [place] CORONARY 04/11/2017 SANTIAGO AGRZA N Ot I27.20 PULMONARY HYPERTENSION, UNSPECIFIED 04/11/2017 SANTIAGO GARZA N Ot Z79.899 OTHER RETIREMENT (CURRENT) DRUG THERAPY 04/11/2017 SANTIAGO GARZA N Ot Z82.49 FAMILY HX OF ISCHEM HEART DIS AND OTH DI 05/11/2017 SANTIAGO GARZA N Ot 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 05/11/2017 SANTIAGO GARZA N Ot E05.00 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 05/11/2017 SANTIAGO GARZA N Ot E80.6 OTHER DISORDERS OF BILIRUBIN METABOLISM 05/11/2017 SANTIAGO GARZA N Ot I25.10 ATHSCL HEART DISEASE OF [place] CORONARY 05/11/2017 SANTIAGO GARZA N Ot I27.20 PULMONARY HYPERTENSION, UNSPECIFIED 05/11/2017 SANTIAGO GARZA N Ot Z79.899 OTHER RETIREMENT (CURRENT) DRUG THERAPY 05/11/2017 KAYLASANTIAGO SOLARES N Ot Z82.49 FAMILY HX OF ISCHEM HEART DIS AND OTH DI 05/12/2017 CHRISTOPHER OLIVA MD Ot 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 05/12/2017 CHRISTOPHER OLIVA MD Ot E05.00 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 05/12/2017 CHRISTOPHER OLIVA MD Ot E80.6 OTHER DISORDERS OF BILIRUBIN METABOLISM 05/12/2017 CHRISTOPHER OLIVA MD Ot I25.10 ATHSCL HEART DISEASE OF [place] CORONARY 05/12/2017 CHRISTOPHER OLIVA MD Ot I27.20 PULMONARY HYPERTENSION, UNSPECIFIED 05/12/2017 CHRISTOPHER OLIVA MD Ot Z79.899 OTHER RETIREMENT (CURRENT) DRUG THERAPY 05/12/2017 CHRISTOPHER OLIVA MD Ot Z82.49 FAMILY HX OF ISCHEM HEART DIS AND OTH DI 06/10/2017 MEHUL SMITH, MANUEL Amaral Ot V76.12 OTH SCREEN MAMMO-MALIGN 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[place]ID[place] 06/10/2017 DAVI SMITH, CHANEL Landin Ot 242.00 TOX DIF GOITER NO CRISIS 06/10/2017 CHANEL TOMLINSON MD Ot 401.9 HYPERTENSION NOS 06/10/2017 CHANEL TOMLINSON MD Ot 729.5 PAIN IN LIMB 06/10/2017 CHANEL TOMLINSON MD Ot 785.1 PALPITATIONS 06/10/2017 CHANEL TOMLINSON MD Ot 786.05 SHORTNESS OF BREATH 06/10/2017 CHANEL TOMLINSON MD Ot 786.09 RESPIRATORY ABNORM NEC 06/10/2017 CHANEL TOMLINSON MD Ot V12.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 06/10/2017 CHANEL TOMLINSON MD Ot 242.00 TOX DIF GOITER NO CRISIS 06/10/2017 CHANEL TOMLINSON MD Ot 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 UNSP 06/10/2017 CHANEL TOMLINSON MD Ot 785.1 PALPITATIONS 06/10/2017 CHANEL TOMLINSON MD Ot 786.05 SHORTNESS OF BREATH 06/10/2017 KAYLIE HAMPTON DO Ot 416.8 CHR PULMON HEART DIS NEC 06/10/2017 KAYLIE HAMPTON DO Ot 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 UNSP 06/10/2017 KAYLIE HAMPTON DO Ot 786.05 SHORTNESS OF BREATH 06/10/2017 KAYLIE HAMPTON DO Ot 793.19 OTHER NONSPECIFIC ABNORMAL FINDING OF [place] 06/10/2017 KAYLIE HAMPTON DO Ot 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 06/10/2017 KAYLIE HAMPTON DO Ot 786.05 SHORTNESS OF BREATH 06/10/2017 KAYLIE HAMPTON DO Ot 786.6 CHEST SWELLING/MASS/LUMP 06/10/2017 SANTIAGO GARZA Ot 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 06/10/2017 MARTIN MUHAMMAD MARKETING COMMUNICATIONS ASSOCIATE Ot 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 06/10/2017 MARTIN MUHAMMAD MARKETING COMMUNICATIONS ASSOCIATE Ot 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 06/10/2017 MARTIN MUHAMMAD MARKETING COMMUNICATIONS ASSOCIATE Ot 242.00 TOX DIF GOITER NO CRISIS 06/10/2017 MARTIN MUHAMMAD MARKETING COMMUNICATIONS ASSOCIATE Ot V58.69 OT MED,LT,CURRENT USE 06/10/2017 MARTIN MUHAMMAD MARKETING COMMUNICATIONS ASSOCIATE Ot 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 06/10/2017 MARTIN MUHAMMAD Ot E05.00 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 06/10/2017 MARTIN MUHAMMAD Ot Z79.899 OTHER RETIREMENT (CURRENT) DRUG THERAPY 06/10/2017 RAFAEL BARTLETT, RADHA L Ot E05.00 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 06/10/2017 RAFAEL BARTLETT RADHA L Ot E05.00 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 06/10/2017 RAFAEL BARTLETT RADHA L Ot R25.2 CRAMP AND SPASM 06/10/2017 SANTIAGO GARZA Ot 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 06/10/2017 MARTIN MUHAMMAD Ot 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 06/10/2017 MARTIN MUHAMMAD Ot E05.00 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 06/10/2017 MARTIN MUHAMMAD Ot L27.0 GEN SKIN ERUPTION DUE TO DRUGS AND MEDS 06/10/2017 MARTIN MUHAMMAD Ot T45.1X5A ADVERSE EFFECT OF ANTINEOPLASTIC AND IMM 06/10/2017 MARTIN MUHAMMAD Ot Z79.899 OTHER RETIREMENT (CURRENT) DRUG THERAPY 06/10/2017 JOIE HALL DOISON L Ot E05.00 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 06/10/2017 HALL DOJOIERADHA L Ot I10 ESSENTIAL (PRIMARY) HYPERTENSION 06/10/2017 Ot 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 06/10/2017 RAFAEL BARTLETT RADHA L Ot E05.00 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 06/10/2017 MARTIN MUHAMMAD Ot 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 06/10/2017 RAFAEL BARTLETT RADHA L Ot E05.00 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 06/10/2017 MARTIN MUHAMMAD Ot 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 06/10/2017 MARTIN MUHAMMAD Ot C79.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 06/10/2017 MARTIN MUHAMMAD Ot E05.00 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 06/10/2017 MARTIN MUHAMMAD Ot R21 RASH AND OTHER NONSPECIFIC SKIN ERUPTION 06/10/2017 MARTIN MUHAMMAD Ot 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 06/10/2017 MARTIN MUHAMMAD Ot 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 06/10/2017 MARTIN MUHAMMAD Ot E05.00 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 06/10/2017 MARTIN MUHAMMAD Ot 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 06/10/2017 DAVI SMITH, CHANEL Landin Ot E05.00 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 06/10/2017 RAFAEL BARTLETT, RADHA L Ot E05.00 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 06/10/2017 RAFAEL BARTLETT RADHA L Ot M54.2 CERVICALGIA 06/10/2017 RAFAEL BARTLETT, RADHA L Ot E05.00 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 06/10/2017 RAFAEL BARTLETT RADHA L Ot E05.00 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 06/10/2017 MARTIN MUHAMMAD Ot 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 06/10/2017 SANTIAGO GARZA Ot 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 06/10/2017 SANTIAGO GARZA Ot R42 DIZZINESS AND GIDDINESS 06/10/2017 Ot 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 06/10/2017 RAFAEL BARTLETT, RADHA L Ot E05.00 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 06/10/2017 RAFAEL BARTLETT RADHA L Ot E05.00 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 06/10/2017 MARTIN MUHAMMAD Ot 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 06/10/2017 MARTIN MUHAMMAD Ot I25.10 ATHSCL HEART DISEASE OF [place] CORONARY 06/10/2017 MARTIN MUHAMMAD Howard MARKETING COMMUNICATIONS ASSOCIATE Ot 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 PULMONARY HYPERTENSION 06/10/2017 MARTIN MUHAMMAD MARKETING COMMUNICATIONS ASSOCIATE Ot Z79.899 OTHER RETIREMENT (CURRENT) DRUG THERAPY 06/10/2017 MARTIN MUHAMMAD Howard MARKETING COMMUNICATIONS ASSOCIATE Ot 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 06/10/2017 MARTIN MUHAMMAD MARKETING COMMUNICATIONS ASSOCIATE Ot R52 PAIN, UNSPECIFIED 06/10/2017 SANTIAGO GARZA Ot 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 06/10/2017 SANTIAGO GARZA Ot Z51.11 ENCOUNTER FOR ANTINEOPLASTIC CHEMOTHERAP 06/10/2017 LATRICE EUBANKS Ot 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 06/10/2017 LATRICE EUBANKS Ot I25.10 ATHSCL HEART DISEASE OF [place] CORONARY 06/10/2017 LATRICE EUBANKS Ot R00.2 PALPITATIONS 06/10/2017 LATRICE EUBANKS Ot R06.02 SHORTNESS OF BREATH 06/10/2017 MARTIN MUHAMMAD MARKETING COMMUNICATIONS ASSOCIATE Ot 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 06/10/2017 MARTIN MUHAMMAD MARKETING COMMUNICATIONS ASSOCIATE Ot I26.99 OTHER PULMONARY EMBOLISM WITHOUT ACUTE C 06/10/2017 MARTIN MUHAMMAD MARKETING COMMUNICATIONS ASSOCIATE Ot K76.89 OTHER SPECIFIED DISEASES OF LIVER 06/10/2017 MARTIN MUHAMMAD MARKETING COMMUNICATIONS ASSOCIATE Ot R91.8 OTHER NONSPECIFIC ABNORMAL FINDING OF [place] 06/10/2017 CHRISTOPHER OLIVA MD Ot 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 06/10/2017 CHRISTOPHER OLIVA MD Ot E05.00 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 06/10/2017 CHRISTOPHER OLIVA MD Ot E80.6 OTHER DISORDERS OF BILIRUBIN METABOLISM 06/10/2017 CHRISTOPHER OLIVA MD Ot I25.10 ATHSCL HEART DISEASE OF [place] CORONARY 06/10/2017 CHRISTOPHER OLIVA MD Ot I27.20 PULMONARY HYPERTENSION, UNSPECIFIED 06/10/2017 CHRISTOPHER OLIVA MD Ot Z79.899 OTHER RETIREMENT (CURRENT) DRUG THERAPY 06/10/2017 CHRISTOPHER OLIVA MD Ot Z82.49 FAMILY HX OF ISCHE[place] HEART DIS AND OTH DI 06/10/2017 CHRISTOPHER OLIVA MD Ot 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 06/10/2017 CHRISTOPHER OLIVA MD Ot E05.00 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 06/10/2017 CHRISTOPHER OLIVA MD Ot E80.6 OTHER DISORDERS OF BILIRUBIN METABOLISM 06/10/2017 CHRISTOPHER OLIVA MD Ot I25.10 ATHSCL HEART DISEASE OF [place] CORONARY 06/10/2017 CHRISTOPHER OLIVA MD Ot I27.20 PULMONARY HYPERTENSION, UNSPECIFIED 06/10/2017 CHRISTOPHER OLIVA MD Ot Z79.899 OTHER RETIREMENT (CURRENT) DRUG THERAPY 06/10/2017 CHRISTOPHER OLIVA MD Ot Z82.49 FAMILY HX OF ISCHE[place] HEART DIS AND OTH DI 06/10/2017 SANTIAGO GARZA N Ot 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 06/10/2017 SANTIAGO GARZA N Ot E05.00 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 06/10/2017 KAYLASANTIAGO SOLARES N Ot E80.6 OTHER DISORDERS OF BILIRUBIN METABOLISM 06/10/2017 KAYLASANTIAGO SOLARES N Ot I25.10 ATHSCL HEART DISEASE OF [place] CORONARY 06/10/2017 SANTIAGO GARZA N Ot I27.20 PULMONARY HYPERTENSION, UNSPECIFIED 06/10/2017 SANTIAGO GARZA N Ot 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 06/10/2017 SANTIAGO GARZA N Ot Z82.49 FAMILY HX OF ISCHE[place] HEART DIS AND OTH DI 06/14/2017 RADHA HALL DO Ot E03.2 HYPOTHYROIDISM DUE TO MEDS AND OTH EXOGE 06/14/2017 SANTIAGO GARZA N Ot 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 06/14/2017 KAYLASANTIAGO SOLARES N Ot E05.00 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 06/14/2017 KAYLASANTIAGO SOLARES N Ot E80.6 OTHER DISORDERS OF BILIRUBIN METABOLISM 06/14/2017 KAYLASANTIAGO SOLARES N Ot I25.10 ATHSCL HEART DISEASE OF [place] CORONARY 06/14/2017 KAYLASANTIAGO SOLARES N Ot I27.20 PULMONARY HYPERTENSION, UNSPECIFIED 06/14/2017 KELLEE GARZAMEENAKSHI N Ot Z79.899 OTHER RETIREMENT (CURRENT) DRUG THERAPY 06/14/2017 KAYLA, SANTIAGO N Ot Z82.49 FAMILY HX OF I[place]HE[place] HEART DIS AND OTH DI 07/07/2017 KAYLA, SANTIAGO N Ot 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 07/07/2017 KAYLA, KELLEEMEENAKSHI N Ot E05.00 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 07/07/2017 KAYLASANTIAGO N Ot E80.6 OTHER DISORDERS OF BILIRUBIN METABOLISM 07/07/2017 KAYLAKELLEEAN N Ot I25.10 ATHSCL HEART DISEASE OF [place] CORONARY 07/07/2017 KAYLAKELLEEAN N Ot I27.20 PULMONARY HYPERTENSION, UNSPECIFIED 07/07/2017 KAYLASANTIAGO N Ot Z79.899 OTHER RETIREMENT (CURRENT) DRUG THERAPY 07/07/2017 KAYLASANTIAGO N Ot Z82.49 FAMILY HX OF ISCHE[place] HEART DIS AND OTH DI 07/08/2017 KAYLA, SANTIAGO N Ot 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 07/14/2017 HALL DO, RADHA L Ot E03.2 HYPOTHYROIDISM DUE TO MEDS AND OTH EXOGE 07/14/2017 KAYLASANTIAGO N Ot 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 07/15/2017 HALL DO, RADHA L Ot E03.2 HYPOTHYROIDISM DUE TO MEDS AND OTH EXOGE 08/05/2017 KAYLASANTIAGO N Ot 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 08/05/2017 KAYLA, SANTIAGO N Ot E05.00 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 08/05/2017 KAYLASANTIAGO N Ot E80.6 OTHER DISORDERS OF BILIRUBIN METABOLISM 08/05/2017 KAYLASANTIAGO N Ot I25.10 ATHSCL HEART DISEASE OF [place] CORONARY 08/05/2017 KAYLASANTIAGO N Ot I27.20 PULMONARY HYPERTENSION, UNSPECIFIED 08/05/2017 KAYLASANTIAGO N Ot Z79.899 OTHER RETIREMENT (CURRENT) DRUG THERAPY 08/05/2017 KAYLASANTIAGO N Ot Z82.49 FAMILY HX OF ISCHE[place] HEART DIS AND OTH DI 08/05/2017 MANUEL CARVER MD Ot V76.12 OTH SCREEN MAMMO-MALIGN 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[place] 08/05/2017 CHANEL TOMLINSON MD Ot 242.00 TOX DIF GOITER NO CRISIS 08/05/2017 CHANEL TOMLINSON MD Ot 401.9 HYPERTENSION NOS 08/05/2017 CHANEL TOMLINSON MD Ot 729.5 PAIN IN LIMB 08/05/2017 CHANEL TOMLINSON MD Ot 785.1 PALPITATIONS 08/05/2017 CHANEL TOMLINSON MD Ot 786.05 SHORTNESS OF BREATH 08/05/2017 CHANEL TOMLINSON MD Ot 786.09 RESPIRATORY ABNORM NEC 08/05/2017 CHANEL TOMLINSON MD Ot V12.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 08/05/2017 CHANEL TOMLINSON MD Ot 242.00 TOX DIF GOITER NO CRISIS 08/05/2017 CHANEL TOMLINSON MD Ot 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 UNSP 08/05/2017 CHANEL TOMLINSON MD Ot 785.1 PALPITATIONS 08/05/2017 CHANEL TOMLINSON MD Ot 786.05 SHORTNESS OF BREATH 08/05/2017 KAYLIE HAMPTON DO Ot 416.8 CHR PULMON HEART DIS NEC 08/05/2017 KAYLIE HAMPTON DO Ot 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 UNSP 08/05/2017 KAYLIE HAMPTON DO Ot 786.05 SHORTNESS OF BREATH 08/05/2017 KAYLIE HAMPTON DO Ot 793.19 OTHER NONSPECIFIC ABNORMAL FINDING OF [place] 08/05/2017 KAYLIE HAMPTON DO Ot 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 08/05/2017 KAYLIE HAMPTON DO Ot 786.05 SHORTNESS OF BREATH 08/05/2017 KAYLIE HAMPTON DO Ot 786.6 CHEST SWELLING/MASS/LUMP 08/05/2017 SANTIAGO GARZA Ot 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 08/05/2017 MARTIN MUHAMMAD MARKETING COMMUNICATIONS ASSOCIATE Ot 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 08/05/2017 MARTIN MUHAMMAD MARKETING COMMUNICATIONS ASSOCIATE Ot 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 08/05/2017 MARTIN MUHAMMAD MARKETING COMMUNICATIONS ASSOCIATE Ot 242.00 TOX DIF GOITER NO CRISIS 08/05/2017 MARTIN MUHAMMAD MARKETING COMMUNICATIONS ASSOCIATE Ot V58.69 OT MED,LT,CURRENT USE 08/05/2017 MARTIN MUHAMMAD Ot 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 08/05/2017 MARTIN MUHAMMAD Ot E05.00 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 08/05/2017 MARTIN MUHAMMADP Ot 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 08/05/2017 HALL DO, RADHA L Ot E05.00 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 08/05/2017 HALL DO, RADHA L Ot E05.00 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 08/05/2017 HALL DO, RADHA L Ot R25.2 CRAMP AND SPASM 08/05/2017 KAYLA KELLEEMEENAKSHI Amaral Ot 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 08/05/2017 MARTIN MUHAMMADP Ot 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 08/05/2017 MARTIN MUHAMMADP Ot E05.00 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 08/05/2017 MARTIN MUHAMMAD Ot L27.0 GEN SKIN ERUPTION DUE TO DRUGS AND MEDS 08/05/2017 MARTIN MUHAMMADP Ot T45.1X5A ADVERSE EFFECT OF ANTINEOPLASTIC AND IMM 08/05/2017 MARTIN MUHAMMADP Ot 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 08/05/2017 RAFAEL BARTLETT, RADHA L Ot E05.00 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 08/05/2017 HALL , RADHA L Ot I10 ESSENTIAL (PRIMARY) HYPERTENSION 08/05/2017 Ot 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 08/05/2017 HALL DO, RADHA L Ot E05.00 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 08/05/2017 MATRIN MUHAMMAD MARKETING COMMUNICATIONS ASSOCIATE Ot 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 08/05/2017 HALL , RADHA L Ot E05.00 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 08/05/2017 MARTIN MUHAMMAD Ot 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 08/05/2017 MARTIN MUHAMMADP Ot C79.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 08/05/2017 MARTIN MUHAMMADP Ot E05.00 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 08/05/2017 MARTIN MUHAMMAD Ot R21 RASH AND OTHER NONSPECIFIC SKIN ERUPTION 08/05/2017 MARTIN MUHAMMADP Ot 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 08/05/2017 MARTIN MUHAMMAD Ot 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 08/05/2017 MARTIN MUHAMMADP Ot E05.00 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 08/05/2017 MARTIN MUHAMMAD Ot Z79.899 OTHER RETIREMENT (CURRENT) DRUG THERAPY 08/05/2017 DAVI SMITH, CHANEL Landin Ot E05.00 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 08/05/2017 RAFAEL BARTLETT, RADHA L Ot E05.00 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 08/05/2017 RAFAEL DO, RADHA L Ot M54.2 CERVICALGIA 08/05/2017 RAFAEL DO, RADHA L Ot E05.00 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 08/05/2017 RAFAEL BARTLETT, RADHA L Ot E05.00 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 08/05/2017 MARTIN MUHAMMADP Ot 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 08/05/2017 SANTIAGO GARZA Ot 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 08/05/2017 SANTIAGO GARZA Ot R42 DIZZINESS AND GIDDINESS 08/05/2017 Ot 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 08/05/2017 RAFAEL BARTLETT, RADHA L Ot E05.00 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 08/05/2017 RAFAEL BARTLETT, RADHA L Ot E05.00 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 08/05/2017 MARTIN MUHAMMAD MARKETING COMMUNICATIONS ASSOCIATE Ot 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 08/05/2017 MARTIN MUHAMMAD MARKETING COMMUNICATIONS ASSOCIATE Ot I25.10 ATHSCL HEART DISEASE OF [place] CORONARY 08/05/2017 MARTIN MUHAMMAD MARKETING COMMUNICATIONS ASSOCIATE Ot 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 PULMONARY HYPERTENSION 08/05/2017 MARTIN MUHAMMADP Ot Z79.899 OTHER RETIREMENT (CURRENT) DRUG THERAPY 08/05/2017 MARTIN MUHAMMAD MARKETING COMMUNICATIONS ASSOCIATE Ot 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 08/05/2017 MARTIN MUHAMMAD Ot R52 PAIN, UNSPECIFIED 08/05/2017 SANTIAGO GARZA Ot 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 08/05/2017 SANTIAGO GARZA Ot Z51.11 ENCOUNTER FOR ANTINEOPLASTIC CHEMOTHERAP 08/05/2017 LATRICE EUBANKS Ot 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 08/05/2017 LATRICE EUBANKS Ot I25.10 ATHSCL HEART DISEASE OF [place] CORONARY 08/05/2017 LATRICE EUBANKS Ot R00.2 PALPITATIONS 08/05/2017 LATRICE EUBANKS Ot R06.02 SHORTNESS OF BREATH 08/05/2017 MARTIN MUHAMMADP Ot 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 08/05/2017 MARTIN MUHAMMADP Ot I26.99 OTHER PULMONARY EMBOLISM WITHOUT ACUTE C 08/05/2017 MARTIN MUHAMMAD MARKETING COMMUNICATIONS ASSOCIATE Ot K76.89 OTHER SPECIFIED DISEASES OF LIVER 08/05/2017 MARTIN MUHAMMAD MARKETING COMMUNICATIONS ASSOCIATE Ot R91.8 OTHER NONSPECIFIC ABNORMAL FINDING OF [place] 08/05/2017 RADHA HALL DO L Ot E03.2 HYPOTHYROIDISM DUE TO MEDS AND OTH EXOGE 08/05/2017 SANTIAGO GARZA Ot 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 08/05/2017 SANTIAGO GARZA Ot E05.00 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 08/05/2017 SANTIAGO GARZA Ot E80.6 OTHER DISORDERS OF BILIRUBIN METABOLISM 08/05/2017 SANTIAGO GARZA Cristin Ot I25.10 ATHSCL HEART DISEASE OF [place] CORONARY 08/05/2017 SANTIAGO GARZA Cristin Ot I27.20 PULMONARY HYPERTENSION, UNSPECIFIED 08/05/2017 SANTIAGO GARZA Cristin Ot Z79.899 OTHER RETIREMENT (CURRENT) DRUG THERAPY 08/05/2017 SANTIAGO GARZA Cristin Ot Z82.49 FAMILY HX OF ISCHEM HEART DIS AND OTH DI 08/05/2017 SANTIAGO GARZA Cristin Ot 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 [facility] 08/31/2017 MEHUL SMITH, MANUEL Amaral Ot V76.12 OTH SCREEN MAMMO-MALIGN 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[place] 08/31/2017 CHANEL TOMLINSON MD Ot 242.00 TOX DIF GOITER NO CRISIS 08/31/2017 CHANEL TOMLINSON MD Ot 401.9 HYPERTENSION NOS 08/31/2017 CHANEL TOMLINSON MD Ot 729.5 PAIN IN LIMB 08/31/2017 CHANEL TOMLINSON MD Ot 785.1 PALPITATIONS 08/31/2017 CHANEL TOMLINSON MD Ot 786.05 SHORTNESS OF BREATH 08/31/2017 CHANEL TOMLINSON MD Ot 786.09 RESPIRATORY ABNORM NEC 08/31/2017 CHANEL TOMLINSON MD Ot V12.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 08/31/2017 CHANEL TOMLINSON MD Ot 242.00 TOX DIF GOITER NO CRISIS 08/31/2017 CHANEL TOMLINSON MD Ot 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 [facility] 08/31/2017 CHANEL TOMLINSON MD Ot 785.1 PALPITATIONS 08/31/2017 CHANEL TOMLINSON MD Ot 786.05 SHORTNESS OF BREATH 08/31/2017 KAYLIE HAMPTON DO Ot 416.8 CHR PULMON HEART DIS NEC 08/31/2017 KAYLIE HAMPTON DO Ot 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 [facility] 08/31/2017 KAYLIE HAMPTON DO Ot 786.05 SHORTNESS OF BREATH 08/31/2017 KAYLIE HAMPTON DO Ot 793.19 OTHER NONSPECIFIC ABNORMAL FINDING OF [place] 08/31/2017 KAYLIE HAMPTON DO Ot 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 08/31/2017 KAYLIE HAMPTON DO Ot 786.05 SHORTNESS OF BREATH 08/31/2017 KAYLIE HAMPTON DO Ot 786.6 CHEST SWELLING/MASS/LUMP 08/31/2017 SANTIAGO GARZA Ot 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 08/31/2017 MARTIN MUHAMMAD MARKETING COMMUNICATIONS ASSOCIATE Ot 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 08/31/2017 MARTIN MUHAMMAD MARKETING COMMUNICATIONS ASSOCIATE Ot 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 08/31/2017 MARTIN MUHAMMADP Ot 242.00 TOX DIF GOITER NO CRISIS 08/31/2017 MARTIN MUHAMMADP Ot V58.69 OTH MED,LT,CURRENT USE 08/31/2017 MARTIN MUHAMMAD Ot 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 08/31/2017 MARTIN MUHAMMADP Ot E05.00 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 08/31/2017 MARTIN MUHAMMAD Ot 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 08/31/2017 RADHA HALL DO Ot E05.00 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 08/31/2017 RADHA HALL DO Ot E05.00 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 08/31/2017 RADHA HALL DO Ot R25.2 CRAMP AND SPASM 08/31/2017 SANTIAGO GARZA Ot 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 08/31/2017 MARTIN MUHAMMAD Ot 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 08/31/2017 MARTIN MUHAMMAD MARKETING COMMUNICATIONS ASSOCIATE Ot E05.00 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 08/31/2017 MARTIN MUHAMMADP Ot L27.0 GEN SKIN ERUPTION DUE TO DRUGS AND MEDS 08/31/2017 MARTIN MUHAMMAD Ot T45.1X5A ADVERSE EFFECT OF ANTINEOPLASTIC AND IMM 08/31/2017 MARTIN MUHAMMADP Ot Z79.899 OTHER RETIREMENT (CURRENT) DRUG THERAPY 08/31/2017 RADHA HALL DO Ot E05.00 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 08/31/2017 RAFAEL BARTLETT, RADHA L Ot I10 ESSENTIAL (PRIMARY) HYPERTENSION 08/31/2017 Ot 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 08/31/2017 HALL , RADHA L Ot E05.00 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 08/31/2017 MARTIN MUHAMMADP Ot 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 08/31/2017 HALL DO, RADHA L Ot E05.00 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 08/31/2017 MARTIN MUHAMMADP Ot 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 08/31/2017 MARTIN MUHAMMADP Ot C79.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 08/31/2017 MARTIN MUHAMMAD Ot E05.00 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 08/31/2017 MARTIN MUHAMMAD Ot R21 RASH AND OTHER NONSPECIFIC SKIN ERUPTION 08/31/2017 MARTIN MUHAMMAD MARKETING COMMUNICATIONS ASSOCIATE Ot 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 08/31/2017 MARTIN MUHAMMADP Ot 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 08/31/2017 MARTIN MUHAMMAD Ot E05.00 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 08/31/2017 MARTIN MUHAMMAD MARKETING COMMUNICATIONS ASSOCIATE Ot Z79.899 OTHER RETIREMENT (CURRENT) DRUG THERAPY 08/31/2017 DAVI SMITH, CHANEL Landin Ot E05.00 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 08/31/2017 RAFAEL BARTLETT, RADHA L Ot E05.00 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 08/31/2017 RAFAEL BARTLETT, RADHA L Ot M54.2 CERVICALGIA 08/31/2017 RAFAEL BARTLETT, RADHA L Ot E05.00 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 08/31/2017 HALL DO, RADHA L Ot E05.00 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 08/31/2017 MARTIN MUHAMMAD MARKETING COMMUNICATIONS ASSOCIATE Ot 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 08/31/2017 SANTIAGO GARZA Ot 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 08/31/2017 SANTIAGO GARZA Ot R42 DIZZINESS AND GIDDINESS 08/31/2017 Ot 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 08/31/2017 HALL DO, RADHA L Ot E05.00 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 08/31/2017 HALL DO, RADHA L Ot E05.00 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 08/31/2017 MARTIN MUHAMMADP Ot 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 08/31/2017 MARTIN MUHAMMADP Ot I25.10 ATHSCL HEART DISEASE OF [place] CORONARY 08/31/2017 MARTIN MHUAMMADP Ot 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 PULMONARY HYPERTENSION 08/31/2017 MARTIN MUHAMMADP Ot Z79.899 OTHER RETIREMENT (CURRENT) DRUG THERAPY 08/31/2017 MARTIN MUHAMMAD MARKETING COMMUNICATIONS ASSOCIATE Ot 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 08/31/2017 MARTIN MUHAMMAD Ot R52 PAIN, UNSPECIFIED 08/31/2017 SANTIAGO GARZA Ot 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 08/31/2017 SANTIAGO GARZA Ot Z51.11 ENCOUNTER FOR ANTINEOPLASTIC CHEMOTHERAP 08/31/2017 LATRICE EUBANKS Ot 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 08/31/2017 LATRICE EUBANKS Ot I25.10 ATHSCL HEART DISEASE OF [place] CORONARY 08/31/2017 LATRICE EUBANKS Ot R00.2 PALPITATIONS 08/31/2017 LATRICE EUBANKS Ot R06.02 SHORTNESS OF BREATH 08/31/2017 MARTIN MUHAMMADP Ot 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 08/31/2017 MARTIN MUHAMMADP Ot I26.99 OTHER PULMONARY EMBOLISM WITHOUT ACUTE C 08/31/2017 MARTIN MUHAMMAD MARKETING COMMUNICATIONS ASSOCIATE Ot K76.89 OTHER SPECIFIED DISEASES OF LIVER 08/31/2017 MARTIN MUHAMMAD MARKETING COMMUNICATIONS ASSOCIATE Ot R91.8 OTHER NONSPECIFIC ABNORMAL FINDING OF [place] 08/31/2017 RADHA HALL DO Ot E03.2 HYPOTHYROIDISM DUE TO MEDS AND OTH EXOGE 08/31/2017 SANTIAGO GARZA Ot 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 08/31/2017 SANTIAGO GARZA Ot E05.00 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 08/31/2017 SANTIAGO GARZA Ot E80.6 OTHER DISORDERS OF BILIRUBIN METABOLISM 08/31/2017 SANTIAGO GARZA Ot I25.10 ATHSCL HEART DISEASE OF [place] CORONARY 08/31/2017 SANTIAGO GARZA Ot I27.20 PULMONARY HYPERTENSION, UNSPECIFIED 08/31/2017 SANTIAGO GARZA Ot Z79.899 OTHER RETIREMENT (CURRENT) DRUG THERAPY 08/31/2017 SANTIAGO GARZA Ot Z82.49 FAMILY HX OF ISCHEM HEART DIS AND OTH DI 08/31/2017 SANTIAGO GARZA Ot 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 09/01/2017 MEHUL SMITH, MANUEL Amaral Ot R31.9 HEMATURIA, UNSPECIFIED Procedures There is no data. Results Test Result Range THYROID STIMULATING HORMONE - 02/02/16 08:21 THYROID STIMULATING HORMONE 3.66 u[iU]/mL 0.35-4.94 THYROID STIMULATING HORMONE - 03/29/16 09:23 THYROID STIMULATING HORMONE 1.25 u[iU]/mL 0.35-4.94 THYROID STIMULATING HORMONE - 07/05/16 08:29 THYROID STIMULATING HORMONE 3.17 u[iU]/mL 0.35-4.94 Automated blood complete blood count (hemogram) panel - 09/16/16 09:45 Blood leukocytes automated count (number/volume) 7.1 10*3/uL 4.3-11.0 Blood erythrocytes automated count (number/volume) 4.69 10*6/uL 4.35-5.85 Venous blood hemoglobin measurement (mass/volume) 13.6 [...] Automated blood platelet mean volume measurement 10.1 [foz_us] 7.4-10.4 PT panel in platelet poor plasma [...] poor plasma bycoagulation assay 32 s 24-35 THYROID STIMULATING HORMONE - 09/27/16 09:36 THYROID STIMULATING HORMONE 3.55 u[iU]/mL 0.35-4.94 THYROID STIMULATING HORMONE - 06/10/17 08:45 THYROID STIMULATING HORMONE 1.23 u[iU]/mL 0.35-4.94 Complete urinalysis with reflex to culture - 08/31/17 08:45 Urine color determination YELLOW NRG Urine clarity determination CLEAR NRG Urine pH measurement by test strip 5 5-9 Specific gravity of urine by test strip 1.015 1.016- 1.022 Urine protein assay by test strip, semi-quantitative NEGATIVE NEGATIVE Urine glucose detection by automated test strip NEGATIVE NEGATIVE Erythrocytes detection in urine sediment by light microscopy 1+ NEGATIVE Urine ketones detection by automated test strip NEGATIVE NEGATIVE Urine nitrite detection by test strip NEGATIVE NEGATIVE Urine total bilirubin detection by test strip NEGATIVE NEGATIVE Urine urobilinogen measurement by automated test strip (mass/volume) NORMAL NORMAL Urine leukocyte esterase detection by dipstick NEGATIVE NEGATIVE Automated urine sediment erythrocyte count by microscopy (number/high power field) RARE NRG Automated urine sediment leukocyte count by microscopy (number/high power field ) RARE NRG Bacteria detection in urine sediment by light microscopy TRACE NRG Crystals detection in urine sediment by light microscopy NONE NRG Casts detection in urine sediment by light microscopy NONE NRG Mucus detection in urine sediment by light microscopy NEGATIVE NRG Complete urinalysis with reflex to culture NO NRG Encounters ACCT No. Visit Date/Time Discharge Status Pt. Type Provider Facility Loc./Unit Complaint [id number] 09/05/2017 12:55:00 09/05/2017 23:59:59 CLS Outpatient KAYLASANTIAGO Cristin [facility] ONC [id number] 08/31/2017 08:46:00 08/31/2017 23:59:59 CLS Outpatient MANUEL CARVER MD [facility] LAB [id number] 07/07/2017 11:20:00 07/07/2017 23:59:59 CLS Outpatient KAYLASANTIAGO Cristin [facility] CARD LUNG CANCER C34.90 [id number] 06/10/2017 09:47:00 06/10/2017 23:59:59 CLS Outpatient RADHA HALL DO [facility] LAB [id number] 06/10/2017 08:26:00 06/10/2017 12:41:00 DIS Outpatient CHRISTOPHER OLIVA MD [facility] ONC [id number] 04/11/2017 14:47:00 05/11/2017 08:30:00 DIS Outpatient KAYLASANTIAGO Cristin [facility] ONC [id number] 03/14/2017 10:56:00 03/26/2017 00:01:00 DIS Outpatient KAYLASANTIAGO Cristin [facility] ONC [id number] 03/07/2017 10:58:00 03/07/2017 23:59:59 CLS Outpatient MARTIN MUHAMMAD [facility] RAD LUNG CA C34.81 [id number] 02/07/2017 10:19:00 03/03/2017 00:01:00 DIS Outpatient KAYLAKELLEEMEENAKSHI Amaral [facility] ONC [id number] 01/07/2017 07:25:00 01/07/2017 23:59:59 CLS Outpatient LATRICE EUBANKS [facility] LAB I25.10 C34.81 R00.2 [id number] 01/07/2017 07:21:00 01/07/2017 23:59:59 CLS Outpatient SANTIAGO GARZA [facility] LAB C34.81 Z51.11 [id number] 11/11/2016 10:14:00 11/28/2016 00:01:00 DIS Outpatient SANTIAGO GARZA [facility] ONC [id number] 11/11/2016 13:29:00 11/11/2016 23:59:59 CLS Outpatient MARTIN MUHAMMAD MARKETING COMMUNICATIONS ASSOCIATE [facility] RAD R05 COUGH [id number] 11/01/2016 10:46:00 11/01/2016 23:59:59 CLS Outpatient MARTIN MUHAMMAD MARKETING COMMUNICATIONS ASSOCIATE [facility] CARD I27.2,Z51.81,I25.10 [id number] 09/27/2016 09:22:00 09/27/2016 23:59:59 CLS Outpatient RADHA HALL DO [facility] LAB [id number] 09/16/2016 09:01:00 09/16/2016 16:05:00 DIS Outpatient SANTIAGO GARZA [facility] RAD LUNG CA,MASS OF UPPER LOBE OF RT LUNG [id number] 07/05/2016 08:21:00 07/05/2016 23:59:59 CLS Outpatient RADHA HALL DO [facility] LAB GRAVES DISEASE [id number] 06/07/2016 10:18:00 06/27/2016 00:01:00 DIS Outpatient SANTIAGO GARZA [facility] ONC [id number] 06/09/2016 12:41:00 06/09/2016 23:59:59 CLS Outpatient SANTIAGO GARZA [facility] RAD DIZZINESS,NON SMALL CELL LUNG CA [id number] 06/04/2016 11:00:00 06/04/2016 23:59:59 CLS Outpatient MARTIN MUHAMMAD [facility] CARD LUNG CANCER [id number] 03/29/2016 09:04:00 03/29/2016 23:59:59 CLS Outpatient RADHA HALL DO L [facility] LAB [id number] 01/14/2016 10:17:00 02/17/2016 00:01:00 DIS Outpatient SANTIAGO GARZA [facility] ONC [id number] 02/02/2016 08:19:00 02/02/2016 23:59:59 CLS Outpatient JOIE HALL DOISON L [facility] LAB GRAVES DRIVES [id number] 12/30/2015 07:30:00 12/30/2015 23:59:59 CLS Outpatient DAVI SMITH, CHANEL Landin [facility] RAD PALPITATIONS,PULMONARY ARTERY,SOB [id number] 12/12/2015 13:16:00 12/12/2015 23:59:59 CLS Outpatient RADHA HALL DO L [facility] RAD NECK PAIN,GRAVES DISEASE [id number] 11/20/2015 08:49:00 11/20/2015 23:59:59 CLS Outpatient MARTIN MUHAMMAD S [employer] COMM[employer]ICATION[employer] ASSOCIATE [facility] ONC [id number] 11/19/2015 08:27:00 11/19/2015 23:59:59 CLS Outpatient MUHAMMADANSLEYAH S MARKETING COMMUNICATIONS ASSOCIATE [facility] ONC [id number] 10/08/2015 09:20:00 10/12/2015 00:01:00 DIS Outpatient SANTIAGO GARZA [facility] ONC [id number] 10/07/2015 08:33:00 10/07/2015 23:59:59 CLS Outpatient JOIE HALL DOISON L [facility] LAB [id number] 09/30/2015 10:39:00 09/30/2015 23:59:59 CLS Outpatient MUHAMMADANSLEYAH S MARKETING COMM[employer]ICATION[employer] ASSOCIATE [facility] CARD LUNG CA [id number] 09/12/2015 10:38:00 09/12/2015 23:59:59 CLS Outpatient MUHAMMADANSLEYAH S MARKETING COMM[employer]ICATIONS ASSOCIATE [facility] ONC [id number] 08/21/2015 07:16:00 08/21/2015 23:59:59 CLS Outpatient JOIE HALL DOISON L [facility] LAB GRAVES DISEASE [id number] 07/04/2015 08:29:00 07/04/2015 23:59:59 CLS Outpatient RADHA HALL DO L [facility] LAB [id number] 07/04/2015 08:26:00 07/04/2015 23:59:59 CLS Outpatient MARTIN MUHAMMAD [facility] ONC [id number] 05/30/2015 08:30:00 06/26/2015 00:01:00 DIS Outpatient SANTIAGO GARZA [facility] ONC [id number] 05/30/2015 07:55:00 05/30/2015 23:59:59 CLS Outpatient SANTIAGO GARZA [facility] RAD LUNG CANCER [id number] 05/20/2015 08:42:00 05/20/2015 23:59:59 CLS Outpatient RADHA HALL DO L [facility] LAB MUSCLE CRAMPS,GRAVES ' DI [id number] 05/09/2015 12:12:00 05/09/2015 23:59:59 CLS Outpatient RADHA HALL DO L [facility] LAB GRAVES'DI [id number] 04/25/2015 08:31:00 04/25/2015 23:59:59 CLS Outpatient MARTIN MUHAMMAD [facility] ONC [id number] 03/12/2015 12:19:00 03/26/2015 00:01:00 DIS Outpatient SANTIAGO GARZA [facility] ONC [id number] 02/14/2015 13:20:00 03/10/2015 00:01:00 DIS Outpatient SANTIAGO GARZA [facility] ONC [id number] 02/28/2015 08:16:00 02/28/2015 23:59:59 CLS Outpatient MARTIN MUHAMMAD [facility] ONC [id number] 01/06/2015 12:22:00 01/06/2015 23:59:59 CLS Outpatient SANTIAGO GARZA [facility] RAD [id number] 12/12/2014 12:04:00 12/12/2014 16:50:00 DIS Outpatient SANTIAGO GARZA [facility] RAD ENLARGED LYMPH NODE [id number] 12/04/2014 09:04:00 12/04/2014 17:40:00 DIS Outpatient ELMER SMITH, FATEMEH Lawrence [facility] SDC LUNG CANCER [id number] 11/11/2014 12:37:00 11/11/2014 23:59:59 CLS Outpatient MEMO BARTLETT KAYLIE Jean [facility] RAD NODULE [id number] 11/11/2014 10:45:00 11/11/2014 23:59:59 CLS Preadmit MEMO KAYLIE BARTLETT [facility] RAD LUNG MASS [id number] 11/05/2014 07:41:00 11/05/2014 23:59:59 CLS Outpatient MEMO BARTLETTKAYLIE [facility] RAD LUNG MASS [id number] 10/31/2014 11:03:00 10/31/2014 23:59:59 CLS Outpatient KAYLIE HAMPTON DO [facility] RAD PULMONARY ARTERY HTN, DVT ,SOB [id number] 10/16/2014 06:36:00 10/16/2014 13:30:00 DIS Outpatient CHANEL TOMLINSON MD [facility] CATH ABNORMAL STRESS ECHO,SOB ,CP,PALPITATIONS,HTP [id number] 10/09/2014 08:15:00 10/09/2014 23:59:59 CLS Outpatient CHANEL TOMLINSON MD [facility] CARD BILAT LEG PAIN,DYSPNEA, HTN [id number] 10/07/2014 08:45:00 10/07/2014 23:59:59 CLS Outpatient CHANEL TOMLINSON MD [facility] CARD PALP, DVT, SOB [id number] 08/03/2013 13:29:00 08/03/2013 23:59:59 CLS Outpatient MANUEL CARVER MD [facility] RAD SCREENING [id number] 09/12/2017 09:45:00 PEN Preadmit SANTIAGO GARZA [facility] RAD LUNG CA [id number] 09/09/2017 10:22:00 ACT Outpatient SANTIAGO GARZA [facility] CARD C34.90 LUNG CA [id number] 09/02/2016 10:31:00 Document Registration [id number] 07/18/2015 07:37:00 Document Registration
[2017-09-12] MEDS ORDERED: MIDAZOLAM 2 MG/2 ML (VERSED) VIAL IVP PRN (08:00)
[2017-09-12] MEDS ORDERED: fentaNYL INJECTION 100 MCG/2 ML AMP IVP PRN (08:00)
[2017-09-12] MEDS ORDERED: LIDOCAINE 1% INJ 20 ML (XYLOCAINE) VIAL INJ ONE (08:00)
[2017-09-12 08:31] LABS: HEMOGLOBIN 13.7 G/DL (11.5-16.0); MEAN PLATELET VOLUME 10.4 FL (7.4-10.4); RED BLOOD COUNT 4.72 10^6/uL (4.35-5.85); RED CELL DISTRIBUTION WIDTH 13.6 % (10.0-14.5)
[2017-09-12] MEDS ORDERED: APIX2.5T PO (08:31)
[2017-09-12] MEDS ORDERED: TOBR5DRO2 OU (08:40)
[2017-09-12] MEDS ORDERED: OSIM80TA PO (08:40)
[2017-09-12] MEDS ORDERED: TIMO5DRO5 OD (08:40)
[2017-09-12] MEDS ORDERED: OMEP20CA12 PO (08:45)
[2017-09-12] MEDS ORDERED: LISI-556 PO (08:45)
[2017-09-12] MEDS ORDERED: LEVO88TA54 PO (08:45)
[2017-09-12 08:50] LABS: PROTHROMBIN TIME PATIENT 13.3 SEC (12.2-14.7)
[2017-09-12] MEDS ORDERED: NF-CLIN1% TP (10:11)
[2017-09-12] MEDS ORDERED: POLY15DR14 OU (10:19)
[2017-09-12] MEDS ORDERED: FLUO15CR2 TP (10:19)
[2017-09-12] MEDS ORDERED: ACET325T49 PO (10:19)
[2017-09-12] MEDS ORDERED: HYDROcodone/APAP 5 MG/325 MG (LORTAB) TAB PO PRN (11:00)
--- NOTE | 2017-09-12 12:03 | Diagnostic Imaging Report ---
INDICATION: Lung carcinoma. Patient presents for CT-guided biopsy. PROCEDURE: After informed written consent was obtained from the patient, patient was brought to the CT suite and placed on table in the supine position. Axial imaging through the chest was performed to evaluate appropriate entry site. Skin of the right anterior thorax was prepped and draped in usual sterile fashion, small amount of 1% lidocaine was utilized for local anesthesia. The procedure was performed utilizing conscious sedation with radiology nursing and constant patient monitoring. Total sedation time is 13 minutes. Patient was administered 1.5 mg of Versed and 50 mcg of fentanyl intravenously. A 19-gauge guide needle was advanced and placed with its tip within the lesion of the right upper lobe. A total of approximately five core biopsies were obtained with an 20-gauge Temno needle. The needle was withdrawn and hemostasis was obtained using manual compression. Postprocedure imaging demonstrates a very small pneumothorax. Followup will be performed with serial chest radiographs. IMPRESSION: Successful CT-guided core biopsy of the dominant mass of the right upper lobe, utilizing conscious sedation. Dictated by: Dictated on workstation # [id number]
--- NOTE | 2017-09-12 12:10 | Diagnostic Imaging Report ---
INDICATION: Status post right upper lobe mass biopsy. TIME OF EXAMINATION: 11:35 AM. COMPARISON: 08/31/2017. FINDINGS: The previously noted spiculated mass in the right upper lobe is again noted. There is some mild increasing infiltrate in the right upper lobe, likely a small amount of hemorrhage from the recent biopsy. No pneumothorax is detected. The heart size is stable. IMPRESSION: No evidence of pneumothorax status post right lung biopsy. Dictated by: Dictated on workstation # [id number]
--- NOTE | 2017-09-12 12:40 | Pre-Op Note & Conscious Sedat ---
Pre-Operative Progress Note H&P Reviewed The H&P was reviewed, patient examined and no changes noted. Date H&P Reviewed: Sep 12, 2017 Time H&P Reviewed: 09:30 Pre-Op Diagnosis: Lung Mass Conscious Sedation Pre-Proced Time Reviewed: 30 ASA Class: 2 Airway Mallampati Classification: (an[place] appropriate class) I. II. III, IV Lungs Heart ASA score ASA 1: a normal healthy patient ASA 2: a patient with a mild systemic disease (mid diabetes, controlled hypertension, obesity ASA 3: a patient with a severe systemic disease that limits activity (angina , COPD, prior Myocardial infarction) ASA 4: a patient with an incapacitating disease that is a constant threat to life (CHF, renal failure) ASA 5: a moribund patient not expected to survive 24 hrs. (ruptured aneurysm) ASA 6: a declared brain patient whose organs are being harvested. For emergent operations, add the letter E after the classification Grade 1 Sedation Plan: Analgesia, Amnesia, Plan communicated to team members, Discussed options with patient/fam, Discussed risks with patient/fam Note The patient is an appropriate candidate to undergo the planned procedure, sedation, and anesthesia. The patient immediately re-assessed prior to indication. SCHUYLER DEUTSCH MD Sep 12, 2017 12:40
== END 2017-09-12 14:50 | disposition home or self-care (01) ==
LOC: RAD 07:43 → SURG 11:00 → RAD 14:50
PROVIDERS: ATTEND Internal Medicine Hematology & Oncology
DX: C34.11 Malignant neoplasm of upper lobe, right bronchus or lung (principal); E05.00 Thyrotoxicosis with diffuse goiter without thyrotoxic crisis or storm; Z79.899 Other long term (current) drug therapy
CPT/HCPCS: 36415; 71045; 77012; 85027; 85610; 85730; 99156

== ENCOUNTER → 2017-10-06 | Outpatient (CLI) | payer SELFPAY ==
[~2017-10-06] MED LIST changes: +ACET325T49 PO; +APIX2.5T PO; +FLUO15CR2 TP; +GADOBUTROL 7.5 MMOL/7.5 ML (GADAVIST) VIAL IV ONE; +LEVO88TA54 PO; +LISI-556 PO; +NF-CLIN1% TP; +OMEP20CA12 PO; +OSIM80TA PO; +POLY15DR14 OU; +TIMO5DRO5 OD; +TOBR5DRO2 OU
--- NOTE | 2017-10-06 13:36 | Diagnostic Imaging Report ---
EXAMINATION: Magnetic resonance imaging of the right shoulder with and without contrast. DATE: October 06, 2017. COMPARISON: Whole-body bone scan September 09, 2017. HISTORY: 72-year-old female, right shoulder pain. History of lung cancer. TECHNIQUE: Magnetic Resonance Imaging sequences were performed of the shoulder without and with contrast. FINDINGS: ROTATOR CUFF, LIGAMENTS, TENDONS, AND MUSCLES: The supraspinatus, infraspinatus, teres minor, and subscapularis tendons and muscles are intact. There is normal rotator cuff muscle bulk. LONG HEAD OF BICEPS: The biceps labral attachment and long head of the biceps tendon is intact. The long head of the biceps tendon is normally positioned within the bicipital groove. GLENOHUMERAL JOINT: The humeral head is well positioned relative to the glenoid. The labrum is grossly intact. There is no identified paralabral cyst. The articular cartilage is grossly intact. There is no joint effusion. ACROMIOCLAVICULAR JOINT: The acromioclavicular joint is normally aligned. The coracoclavicular and coracoacromial ligaments are intact. There are very mild acromioclavicular degenerative changes without undersurface osteophyte. BONE: There is a destructive enhancing bone lesion involving the inferior aspect of the scapula, which measures 2.6 x 2.0 x 1.5 cm in size. The lesion extends into the adjacent soft tissues. There is adjacent intramuscular edema and enhancement. This lesion is not radiotracer avid on comparison nuclear medicine bone scan. The lesion is compatible with an aggressive bone lesion, however. There is no identified acute fracture. There is no evidence of osteonecrosis. There are areas of small subcortical cystic change in the superior humeral head underlying the infraspinatus tendon insertion. BURSAE AND SOFT TISSUES: The bursae and additional soft tissues not already described above are unremarkable in appearance. IMPRESSION: 1. Aggressive destructive bone lesion involving the inferior aspect of the scapula with extension in the adjacent soft tissues measuring 2.6 x 2.0 x 1.5 cm in size, which is most suggestive of bone metastasis. This lesion is not visible with retrospective review on comparison nuclear medicine bone scan. The lesion is new since July 07, 2017. 2. Intact rotator cuff. 3. Unremarkable appearance of the glenohumeral joint. 4. Very mild acromioclavicular degenerative changes without undersurface osteophyte. 5. No acute fracture. Dictated by: Dictated on workstation # [id number]
== END ==
LOC: RAD 11:28
PROVIDERS: ATTEND Internal Medicine Hematology & Oncology
DX: C34.90 Malignant neoplasm of unspecified part of unspecified bronchus or lung (principal); C78.00 Secondary malignant neoplasm of unspecified lung; M89.9 Disorder of bone, unspecified; M19.011 Primary osteoarthritis, right shoulder
CPT/HCPCS: 73223

== ENCOUNTER → 2017-11-19 | Outpatient (CLI) | payer SELFPAY ==
[~2017-11-19] MED LIST changes: -GADOBUTROL 7.5 MMOL/7.5 ML (GADAVIST) VIAL IV ONE
[2017-11-19] MEDS: GADOBUTROL 7.5 MMOL/7.5 ML (GADAVIST) VIAL IV ONE (10:36)
--- NOTE | 2017-11-19 14:41 | Diagnostic Imaging Report ---
PROCEDURE: MR imaging of the brain with and without contrast. TECHNIQUE: Multiplanar, multisequence MR imaging of the brain was performed with and without contrast. INDICATION: Dizziness. Gait disturbance. Metastatic lung cancer. COMPARISON: MRI brain without and with IV contrast 06/09/2016. FINDINGS: There are 2 punctate foci of restricted water diffusion in the posterior right frontal lobe and right temporal occipital region. There are mild T2 hyperintensities without enhancement in these locations. There is a single new foci of abnormal intracranial enhancement in the anterior right temporal lobe measuring 0.5 cm. Although this is confirmed on all 3 postcontrast sequences, there is no appreciable associated abnormal T2 signal. No other abnormal intracranial enhancement. Additional scattered nonspecific T2 hyperintensities in the supratentorial white matter, presumed leukoaraiosis. Moderate generalized cerebral and cerebellar parenchymal volume loss. Normal morphology of the major midline structures, sella, posterior fossa and cerebellar pontine angle. Prominent perivascular space left basal ganglia. Postoperative changes in the globes. No hydrocephalus or extra-axial fluid collections. Normal intracranial flow voids. The paranasal sinuses and mastoids are unremarkable. IMPRESSION: 1. Two punctate acute or subacute infarcts in the right frontal lobe and right temporal occipital region. 2. A 0.5 cm enhancing mass in the anterior right temporal lobe is new since the prior exam. Report given to Tenzin Ryan at 2:40 p.m. 11/19/2017/cb Dictated by: Dictated on workstation # [id number]
== END ==
LOC: RAD 09:57
PROVIDERS: ATTEND Nurse Practitioner Adult Health
DX: C34.90 Malignant neoplasm of unspecified part of unspecified bronchus or lung (principal); C79.51 Secondary malignant neoplasm of bone; I63.8 Other cerebral infarction; G93.89 Other specified disorders of brain
CPT/HCPCS: 70553

== ENCOUNTER 2017-12-27 08:37 | Outpatient (RCR) | payer MEDICAID, OTHER ==
[2017-11-16 14:50] LABS: BASOPHILS % (AUTO) 0 % (0-10); EOSINOPHILS # (AUTO) 0.3 10^3/uL (0.0-0.3); EOSINOPHILS % (AUTO) 5 % (0-10); HEMATOCRIT 37 % (35-52); HEMOGLOBIN 12.4 G/DL (11.5-16.0); LYMPHOCYTES # (AUTO) 1.1 X 10^3 (1.0-4.0); LYMPHOCYTES % (AUTO) 16 % (12-44); MEAN CORPUSCULAR HEMOGLOBIN 29 PG (25-34); MEAN CORPUSCULAR HGB CONC 34 G/DL (32-36); MEAN CORPUSCULAR VOLUME 86 FL (80-99); MEAN PLATELET VOLUME 9.5 FL (7.4-10.4); MONOCYTES # (AUTO) 0.8 X 10^3 (0.0-1.0); MONOCYTES % (AUTO) 12 % (0-12); NEUTROPHILS # (AUTO) 4.3 X 10^3 (1.8-7.8); NEUTROPHILS % (AUTO) 67 % (42-75); PLATELET COUNT 166 10^3/uL (130-400); RED BLOOD COUNT 4.28 10^6/uL (4.35-5.85); RED CELL DISTRIBUTION WIDTH 13.5 % (10.0-14.5); WHITE BLOOD COUNT 6.5 10^3/uL (4.3-11.0)
[2017-11-16 15:10] LABS: ALANINE AMINOTRANSFERASE 6 U/L (0-55); ALBUMIN 4.1 GM/DL (3.2-4.5); ALKALINE PHOSPHATASE 83 U/L (40-136); BILIRUBIN,TOTAL 0.5 MG/DL (0.1-1.0); BUN/CREATININE RATIO 20; CALCIUM 9.3 MG/DL (8.5-10.1); CARBON DIOXIDE 28 MMOL/L (21-32); CHLORIDE 104 MMOL/L (98-107); CREATININE SERUM 0.81 MG/DL (0.60-1.30); GFR ESTIMATED > 60; GLUCOSE 96 MG/DL (70-105); POTASSIUM 4.2 MMOL/L (3.6-5.0); SODIUM 139 MMOL/L (135-145); TOTAL PROTEIN 8.1 GM/DL (6.4-8.2)
[2017-12-21 09:27] LABS: BASOPHILS % (AUTO) 0 % (0-10); EOSINOPHILS # (AUTO) 0.2 10^3/uL (0.0-0.3); EOSINOPHILS % (AUTO) 2 % (0-10); HEMATOCRIT 38 % (35-52); HEMOGLOBIN 13.5 G/DL (11.5-16.0); LYMPHOCYTES # (AUTO) 0.9 X 10^3 (1.0-4.0); LYMPHOCYTES % (AUTO) 12 % (12-44); MEAN CORPUSCULAR HEMOGLOBIN 30 PG (25-34); MEAN CORPUSCULAR HGB CONC 35 G/DL (32-36); MEAN CORPUSCULAR VOLUME 84 FL (80-99); MEAN PLATELET VOLUME 8.3 FL (7.4-10.4); MONOCYTES # (AUTO) 0.7 X 10^3 (0.0-1.0); MONOCYTES % (AUTO) 9 % (0-12); NEUTROPHILS # (AUTO) 5.9 X 10^3 (1.8-7.8); NEUTROPHILS % (AUTO) 76 % (42-75); PLATELET COUNT 121 10^3/uL (130-400); RED BLOOD COUNT 4.56 10^6/uL (4.35-5.85); RED CELL DISTRIBUTION WIDTH 13.8 % (10.0-14.5); WHITE BLOOD COUNT 7.8 10^3/uL (4.3-11.0)
[2017-12-21 09:57] LABS: ALANINE AMINOTRANSFERASE 11 U/L (0-55); ALBUMIN 3.8 GM/DL (3.2-4.5); ALKALINE PHOSPHATASE 63 U/L (40-136); BILIRUBIN,TOTAL 0.9 MG/DL (0.1-1.0); BUN/CREATININE RATIO 24; CALCIUM 8.9 MG/DL (8.5-10.1); CARBON DIOXIDE 25 MMOL/L (21-32); CHLORIDE 95 MMOL/L (98-107); CREATININE SERUM 0.72 MG/DL (0.60-1.30); GFR ESTIMATED > 60; GLUCOSE 89 MG/DL (70-105); POTASSIUM 4.1 MMOL/L (3.6-5.0); SODIUM 130 MMOL/L (135-145); TOTAL PROTEIN 6.8 GM/DL (6.4-8.2)
--- NOTE | 2017-12-21 12:44 | Diagnostic Imaging Report ---
EXAMINATION: PA and lateral Chest at 11:03 a.m. INDICATION: Lung cancer. FINDINGS: The heart size is within normal limits and stable when compared to 08/31/2017. The previous exam did note a 3.3 cm mass in the right upper lung. The subsequent CT chest exam of 08/31/2017 again revealed this finding as well as several other parenchymal lung masses. These findings were felt to be secondary to neoplastic disease. Interstitial lung disease was also noted, and there was a question of lymphangitic spread. On this exam, the mass in the right upper lung does seem slightly larger and now measures 3.5 cm in maximum dimension. The other pulmonary nodules noted previously also seem slightly greater in size. If a more sensitive evaluation of these findings is desired, then a repeat CT chest exam would be recommended. There is no clear evidence for pneumonia or failure, and there is no sign of a pleural effusion. The mediastinum is not widened. The osseous structures are intact. IMPRESSION: 1. The appearance of the chest has worsened since the prior study as the suspected neoplastic masses involving the lungs do appear to have increased in size somewhat. Recommendations as above. 2. There is no acute cardiopulmonary abnormality identified. Dictated by: Dictated on workstation # [id number]
[~2017-12-27 08:37] MED LIST changes: +NS IV 500 ML (CANCER CENTER) 500 ML IV SCH; +PEMBROLIZUMAB 200 MG in NS (IVPB) CANCER CENTER 50 ML IV SCH
[2017-12-27 08:54] LABS: BILIRUBIN,URINE NEGATIVE (NEGATIVE); CLARITY,URINE SLIGHTLY CLOUDY; COLOR,URINE YELLOW; GLUCOSE, URINE (UA) NEGATIVE (NEGATIVE); KETONES,URINE NEGATIVE (NEGATIVE); LEUKOCYTE ESTERASE ,URINE 3+ (NEGATIVE); NITRITE,URINE NEGATIVE (NEGATIVE); PH,URINE 7 (5-9); PROTEIN,URINE NEGATIVE (NEGATIVE); UROBILINOGEN,URINE NORMAL (NORMAL)
[2017-12-27 09:04] LABS: BACTERIA,URINE NEGATIVE /HPF; RBC,URINE 0-2 /HPF; SQUAMOUS EPITHELIAL CELL,UR 0-2 /HPF; WBC,URINE 25-50 /HPF
== END 2017-12-28 | disposition home or self-care (01) ==
LOC: ONC 08:37
PROVIDERS: ATTEND Internal Medicine Hematology & Oncology
DX: Z51.0 Encounter for antineoplastic radiation therapy (principal); C34.11 Malignant neoplasm of upper lobe, right bronchus or lung; C78.01 Secondary malignant neoplasm of right lung; C78.02 Secondary malignant neoplasm of left lung; E05.00 Thyrotoxicosis with diffuse goiter without thyrotoxic crisis or storm; I25.10 Atherosclerotic heart disease of native coronary artery without angina pectoris; I27.20 Pulmonary hypertension, unspecified; E80.6 Other disorders of bilirubin metabolism; R82.99 Other abnormal findings in urine; Z86.711 Personal history of pulmonary embolism; Z82.49 Family history of ischemic heart disease and other diseases of the circulatory system; Z79.01 Long term (current) use of anticoagulants; Z79.899 Other long term (current) drug therapy
CPT/HCPCS: 36415; 71046; 77290; 77295; 77300; 77334; 77336; 77417; 77470; 80053; 81000; 84443; 85025; 87077; 87088; 87186; 96413; 99204; 99213; 99215

== ENCOUNTER → 2018-01-27 | Outpatient (CLI) | payer MEDICAID ==
[~2018-01-27] MED LIST changes: +AMOX-358 PO; +GUAI400T71 PO; +LEVO750T39 PO; +LEVO75TA PO; -NS IV 500 ML (CANCER CENTER) 500 ML IV SCH; -PEMBROLIZUMAB 200 MG in NS (IVPB) CANCER CENTER 50 ML IV SCH; +POTA-51 PO
[2018-01-27 07:23] LABS: CHOLESTEROL 242 MG/DL (< 200); HDL CHOLESTEROL 53 MG/DL (40-60); TRIGLYCERIDES 94 MG/DL (<150); VLDL CHOLESTEROL 19 MG/DL (5-40)
== END ==
LOC: LAB 06:46
PROVIDERS: ATTEND Nurse Practitioner Family
DX: I27.20 Pulmonary hypertension, unspecified (principal)
CPT/HCPCS: 36415; 80061

== ENCOUNTER 2018-02-04 10:37 | Inpatient (IN) | payer MEDICAID ==
[2018-02-04] VITALS (13 sets, daily range): BP systolic 98–138; BP diastolic 58–84
[~2018-02-04] VITALS: Ht 165.1 cm; Wt 65.2 kg
[~2018-02-04 10:37] MED LIST changes: -AMOX-358 PO; -GUAI400T71 PO; -LEVO750T39 PO; -LEVO75TA PO; -POTA-51 PO
[2018-02-04] MEDS ORDERED: NS IV 500 ML 500 ML IV SCH (11:00)
--- NOTE | 2018-02-04 11:00 | ED General ---
General Stated Complaint: WEAKNESS,FEVER,NON RESPONSIVE Source of Information: Patient Exam Limitations: No Limitations (UMBERTO RYAN APRN) History of Present Illness Date Seen by Provider: Feb 04, 2018 Time Seen by Provider: 10:55 Initial Comments 72-year-old [place] female presents to ER accompanied by her son with reports of fever up to 100 at home, and generalized weakness, fall at home. She has primary lung cancer with metastasis to left scapula, liver, brain. She is receiving Keytruda injections with most recent injection on Tuesday, she has had a slight reduction in size and primary lung mass. Timing/Duration: 1-2 Days Severity: Moderate Associated Systoms: No Cough; Fever/Chills (UMBERTO RYAN APRN) Initial Comments Fall was witnessed. Unsure if she hit her head but possible. Son notes that the patient has been drinking was recently. She had 2 previous urinary tract infections since the first of the year. Most recently in November. Associated Systoms: Weakness (BE LIRIANO MD) Allergies and Home Medications Allergies Coded Allergies: Sulfa (Sulfonamide Antibiotics) (Unverified Allergy, Mild, 09/12/17) Home Medications Acetaminophen 325 Mg Tablet, 2 TAB PO BID, (Reported) Apixaban 2.5 Mg Tablet, 2.5 MG PO BID, (Reported) Clindamycin Phos 60 Ml Lotion, 120 ML TP BID PRN for RASH, (Reported) CLINDAMYCIN 1% TOPICAL LOTION Fluocinonide/Emollient Base 15 Gm Cream..g., 1 APPLIC TP BID PRN for RASH, ( Reported) APPLY A THIN FILM TO ITCHY RASH TWICE DAILY NEEDED Levothyroxine Sodium 88 Mcg Tablet, 88 MCG PO DAILY, (Reported) 88 MCG DAILY EXCEPT FOR ON TUESDAY AND TUESDAY TAKES ADDITIONAL 44 MCG. Lisinopril 5 Mg Tablet, 5 MG PO DAILY, (Reported) Omeprazole 20 Mg Capsule.dr, PO DAILY, (Reported) Osimertinib Mesylate 80 Mg Tablet, 80 MG PO DAILY, (Reported) Polyvinyl Alcohol/Povidone 15 Ml Drops, 1 DROP OU for DRY EYES, (Reported) Timolol Maleate 5 Ml Drops, 1 DROP OD BID, (Reported) Patient Home Medication List Home Medication List Reviewed: Yes (UMBERTO RYAN APRN) Home Medication List Reviewed: Yes (BE LIRINAO MD) Review of Systems Constitutional: see HPI, fever EENTM: see HPI Respiratory: no symptoms reported Cardiovascular: no symptoms reported Genitourinary: no symptoms reported Musculoskeletal: no symptoms reported Skin: no symptoms reported Psychiatric/Neurological: No Symptoms Reported Hematologic/Lymphatic: No Symptoms Reported Immunological/Allergic: no symptoms reported (UMBERTO RYAN APRN) Constitutional: weakness (BE LIRIANO MD) All Other Systems Reviewed Negative Unless Noted: Yes (BE LIRIANO MD) Past Edhwynm-Ppnbwl-Qqlfxe Hx Past Med/Social Hx: Reviewed Nursing Past Med/Soc Hx (BE LIRIANO MD) Patient Social History Recent Foreign Travel: No Contact w/Someone Who Travel: No Recent Hopitalizations: No (UMBERTO RYAN APRN) Immunizations Up To Date Date of Pneumonia Vaccine: Apr 27, 2011 (UMBERTO RYAN APRN) Past Medical History Gastroesophageal Reflux Macular Degeneration Lung (UMBERTO RYAN APRN) Physical Exam Vital Signs Vital Signs - First Documented 02/04/18 10:37 Temp 99.2 Pulse 91 Resp 16 B/P (MAP) 132/82 (99) Pulse Ox 96 O2 Delivery Room Air (BE LIRIANO MD) Vital Signs Capillary Refill : (UMBERTO RYAN APRN) Height, Weight, BMI Height: 5'3.00" Weight: 145lbs. 6.0oz. 65.858307nn; 26.4 BMI Method: General Appearance: No Apparent Distress, WD/WN, Chronically ill Eyes: Bilateral Eye Normal Inspection, Bilateral Eye PERRL, Bilateral Eye EOMI HEENT: TMs Normal, Normal ENT Inspection Neck: Full Range of Motion, Normal Inspection Respiratory: Normal Breath Sounds, No Accessory Muscle Use, No Respiratory Distress Cardiovascular: Regular Rate, Rhythm, Normal Peripheral Pulses Gastrointestinal: Normal Bowel Sounds, Non Tender, Soft Extremity: Normal Capillary Refill, Normal Inspection Neurologic/Psychiatric: Other (does not respond verbally to any staff member or her son who speaks to her in her [place] language, very fatigued and weak appearing) Skin: Normal Color, Warm/Dry (UMBERTO RYAN APRN) General Appearance: Chronically ill Respiratory: Normal Breath Sounds, No Respiratory Distress Cardiovascular: Regular Rate, Rhythm, No Murmur, Normal Peripheral Pulses Back: No CVA Tenderness, No Vertebral Tenderness Neurologic/Psychiatric: Other (does not respond verbally to any staff member or her son who speaks to her in her [place] language, very fatigued and weak appearing) (BE LIRIANO MD) Focused Exam Lactate Level 02/04/18 11:00: Lactic Acid Level 1.91 (BE LIRIANO MD) Lactic Acid Level Laboratory Tests Test 02/04/18 11:00 Lactic Acid Level 1.91 MMOL/L (0.50-2.00) (BE LIRIANO MD) Progress/Results/Core Measures Suspected Sepsis SIRS Temperature: Pulse: Respiratory Rate: Blood Pressure / Mean: (UMBERTO RYAN APRN) Results/Orders Lab Results Laboratory Tests Test 02/04/18 11:00 02/04/18 11:50 Range/Units White Blood Count 17.6 H 4.3-11.0 10^3/uL Red Blood Count 4.50 4.35-5.85 10^6/uL Hemoglobin 13.6 11.5-16.0 G/DL Hematocrit 36 35-52 % Mean Corpuscular Volume 79 L 80-99 FL Mean Corpuscular Hemoglobin 30 25-34 PG Mean Corpuscular Hemoglobin Concent 38 H 32-36 G/DL Red Cell Distribution Width 13.1 10.0-14.5 % Platelet Count 223 130-400 10^3/uL Mean Platelet Volume 9.1 7.4-10.4 FL Neutrophils (%) (Auto) 88 H 42-75 % Lymphocytes (%) (Auto) 6 L 12-44 % Monocytes (%) (Auto) 6 0-12 % Eosinophils (%) (Auto) 0 0-10 % Basophils (%) (Auto) 0 0-10 % Neutrophils # (Auto) 15.5 H 1.8-7.8 X 10^3 Lymphocytes # (Auto) 1.0 1.0-4.0 X 10^3 Monocytes # (Auto) 1.1 H 0.0-1.0 X 10^3 Eosinophils # (Auto) 0.0 0.0-0.3 10^3/uL Basophils # (Auto) 0.0 0.0-0.1 10^3/uL Neutrophils % (Manual) 86 % Lymphocytes % (Manual) 5 % Monocytes % (Manual) 5 % Eosinophils % (Manual) 1 % Band Neutrophils 3 % Microcytosis SLIGHT Sodium Level 118 *L 135-145 MMOL/L Potassium Level 3.7 3.6-5.0 MMOL/L Chloride Level 85 L 98-107 MMOL/L Carbon Dioxide Level 19 L 21-32 MMOL/L Anion Gap 14 5-14 MMOL/L Blood Urea Nitrogen 9 7-18 MG/DL Creatinine 0.64 0.60-1.30 MG/DL Estimat Glomerular Filtration Rate > 60 BUN/Creatinine Ratio 14 Glucose Level 119 H 70-105 MG/DL Lactic Acid Level 1.91 0.50-2.00 MMOL/L Calcium Level 9.2 8.5-10.1 MG/DL Corrected Calcium 8.9 8.5-10.1 MG/DL Total Bilirubin 2.0 H 0.1-1.0 MG/DL Aspartate Amino Transf (AST/SGOT) 19 5-34 U/L Alanine Aminotransferase (ALT/SGPT) 8 0-55 U/L Alkaline Phosphatase 97 40-136 U/L Total Protein 7.6 6.4-8.2 GM/DL Albumin 4.4 3.2-4.5 GM/DL Urine Color YELLOW Urine Clarity VERY CLOUDY H Urine pH 7 5-9 Urine Specific [place] 1.010 L 1.016-1.022 Urine Protein 3+ H NEGATIVE Urine Glucose (UA) NEGATIVE NEGATIVE Urine Ketones 3+ H NEGATIVE Urine Nitrite NEGATIVE NEGATIVE Urine Bilirubin NEGATIVE NEGATIVE Urine Urobilinogen 1 NORMAL MG/DL Urine Leukocyte Esterase 3+ H NEGATIVE Urine RBC (Auto) 5+ H NEGATIVE Urine RBC TNTC H /HPF Urine WBC TNTC H /HPF Urine Squamous Epithelial Cells NONE /HPF Urine Crystals NONE /LPF Urine Bacteria TRACE /HPF Urine Casts NONE /LPF Urine Mucus NEGATIVE /LPF Urine Culture Indicated YES (BE LIRIANO MD) My Orders Orders - BE LIRIANO MD Saline Lock/Iv-Start (02/04/18 11:23) Ns Iv 1000 Ml (Sodium Chloride 0.9%) (02/04/18 11:23) Zosyn 4.5gm Iv X 1 (02/04/18 12:45) (BE LIRIANO MD) Medications Given in ED Current Medications Medications Dose Ordered Sig/José Route Start Time Stop Time Status Last Admin Dose Admin Iohexol 100 ml ONCE ONCE IV 02/04/18 11:15 8/11/18 11:19 DC 02/04/18 11:37 100 ML Sodium Chloride 100 ml ONCE ONCE IV 02/04/18 11:15 02/04/18 11:19 DC 02/04/18 11:37 100 ML Sodium Chloride 1,000 ml @ 0 mls/hr Q0M ONCE IV 02/04/18 11:23 02/04/18 11:25 DC 02/04/18 12:18 1,000 MLS/HR (BE LIRIANO MD) Vital Signs/I&O 02/04/18 10:37 Temp 99.2 Pulse 91 Resp 16 B/P (MAP) 132/82 (99) Pulse Ox 96 O2 Delivery Room Air (BE LIRIANO MD) Vital Signs/I&O Capillary Refill : (UMBERTO RYAN APRN) Progress Note : Progress Note I have seen and evaluated the patient and assumed care from Umberto Ryan APRN. Patient is extremely weak and essentially nonverbal at this point. Apparently had a fall this morning. 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 It does appear that she is on blood thinner. She has recently been febrile. Sepsis workup was initiated and we will add CT of the head with and without contrast given her history of fall and metastatic disease involving the brain. She did receive radiation treatments to the brain for the cancer there previously. Son does report that she has had recent cough and chest x- ray will be evaluated. Bui catheter was placed by nursing due to immobility and significant illness and she had scant urine output after placement of Bui. Normal saline 500 mL was initiated and another liter was ordered. Patient is not hypotensive at this time but does have decreased urine output. We'll continue to monitor. I did discuss at length with the son and other family member related to patient's severity of disease currently. Patient has previously requested DO NOT RESUSCITATE which we will follow up as indicated. Continue to monitor. 1230: I did discuss the case with Dr. Zuniga. Patient to be admitted for pneumonia, UTI and hyponatremia with dehydration. Findings concerns discussed with family and patient who agree. Zosyn 4.5 g IV ordered. Admit, inpatient status. Patient does have findings of sepsis but not severe sepsis or septic shock. Patient does not require high-volume fluid resuscitation and lactic acid is less than 2. Patient stable for admission to medical floor with telemetry. (BE LIRIANO MD) Diagnostic Imaging Diagonstic Imaging: Xray Plain Films/CT/US/NM/MRI: chest Comments NAME: [facility] REC#: [id number] PT STATUS: REG ER : 1945 PHYSICIAN: UMBERTO RYAN APRN ADMIT DATE: 02/04/18/ER Signed Date of Exam: 02/04/18 CHEST 1 VIEW, AP/PA ONLY INDICATION: Lung cancer. Unresponsive patient. Exam compared with study of 3 days earlier. Coarsened bilateral interstitial and nodular opacities are largely stable from previous exam. Airspace like density in the periphery of the right upper lobe however may have increased. The possibility of some mild pneumonia superimposed upon the otherwise chronic finding could not be excluded with confidence. No effusion or pneumothorax. IMPRESSION: Chronic lung disease and bilateral nodules are redemonstrated unchanged from the recent exam. There is some more vague airspace like density in the right upper lobe laterally just above the fissure which may reflect some developing pneumonia. No other potential interval change. Dictated by: Dictated on workstation # [id number] Dict: 02/04/18 1143 Trans: 02/04/18 1203 Interpreted by: VICTOR HUGO CORNELIUS Electronically signed by: VICTOR HUGO CORNELIUS 02/04/18 1203 Reviewed: Reviewed by Me Diagonstic Imaging: CT Plain Films/CT/US/NM/MRI: head Comments [place] NAME: CLARITZA KELLY [facility] REC#: [id number] PT STATUS: REG ER : 1945 PHYSICIAN: UMBERTO RYAN APRN ADMIT DATE: 02/04/18/ER Draft Date of Exam:02/04/18 CT HEAD W WO PROCEDURE: CT head with and without contrast. TECHNIQUE: Multiple contiguous axial images were obtained through the brain before and after the administration of intravenous contrast. INDICATION: Fever, weakness, and unresponsive. COMPARISON: None FINDINGS: The ventricles are normal in size, shape and position. There is no midline shift or mass effect. There is no hemorrhage or evidence of acute ischemia. There is no abnormal enhancement or mass. No extra-axial fluid collection is identified. There is no cerebral edema. The bony calvarium, visualized paranasal sinuses and mastoids are normal. IMPRESSION: Negative CT head. Dictated on workstation # [id number] Dict: 02/04/18 1153 Trans: 02/04/18 1158 [facility] [id number] Interpreted by: PEGGY ARREOLA Electronically signed by: Reviewed: Reviewed by Me (BE LIRIANO MD) Departure Communication (Admissions) Time/Spoke to Admitting Phy: 12:30 (BE LIRIANO MD) Impression Primary Impression: Right upper lobe pneumonia Qualified Codes: J18.1 - Lobar pneumonia, unspecified organism Additional Impressions: Urinary tract infection Qualified Codes: N30.00 - Acute cystitis without hematuria Hyponatremia Dehydration Disposition: ADMITTED INPATIENT Condition: Stable Admissions Decision to Admit Reason: Admit from ER (General) Decision to Admit/Date: Feb 04, 2018 Time/Decision to Admit Time: 12:30 (BE LIRIANO MD) Departure-Patient Inst. Referrals: [facility] (PCP/Family) Primary Care Physician UMBERTO RYAN APRN Feb 04, 2018 11:00 BE LIRIANO MD Feb 04, 2018 11:36
[2018-02-04 11:13] LABS: BASOPHILS % (AUTO) 0 % (0-10); EOSINOPHILS % (AUTO) 0 % (0-10); HEMATOCRIT 36 % (35-52); HEMOGLOBIN 13.6 G/DL (11.5-16.0); LYMPHOCYTES % (AUTO) 6 % (12-44); MEAN CORPUSCULAR HEMOGLOBIN 30 PG (25-34); MEAN CORPUSCULAR HGB CONC 38 G/DL (32-36); MEAN CORPUSCULAR VOLUME 79 FL (80-99); MEAN PLATELET VOLUME 9.1 FL (7.4-10.4); MONOCYTES # (AUTO) 1.1 X 10^3 (0.0-1.0); MONOCYTES % (AUTO) 6 % (0-12); NEUTROPHILS # (AUTO) 15.5 X 10^3 (1.8-7.8); NEUTROPHILS % (AUTO) 88 % (42-75); PLATELET COUNT 223 10^3/uL (130-400); RED CELL DISTRIBUTION WIDTH 13.1 % (10.0-14.5); WHITE BLOOD COUNT 17.6 10^3/uL (4.3-11.0)
[2018-02-04] MEDS ORDERED: NS 100 ML (IVPB) BAG IV ONE (11:15)
[2018-02-04] MEDS ORDERED: IOHEXOL 350 MG/ML 100 ML (OMNIPAQUE 350) VIAL IV ONE (11:15)
[2018-02-04] MEDS ORDERED: NS IV 1000 ML 1,000 ML IV ONE (11:23)
[2018-02-04 11:33] LABS: ALANINE AMINOTRANSFERASE 8 U/L (0-55); ALBUMIN 4.4 GM/DL (3.2-4.5); ALKALINE PHOSPHATASE 97 U/L (40-136); BUN/CREATININE RATIO 14; CALCIUM 9.2 MG/DL (8.5-10.1); CARBON DIOXIDE 19 MMOL/L (21-32); CHLORIDE 85 MMOL/L (98-107); CREATININE SERUM 0.64 MG/DL (0.60-1.30); GFR ESTIMATED > 60; GLUCOSE 119 MG/DL (70-105); POTASSIUM 3.7 MMOL/L (3.6-5.0); TOTAL PROTEIN 7.6 GM/DL (6.4-8.2)
[2018-02-04 11:37] LABS: SODIUM 118 MMOL/L (135-145)
[2018-02-04 11:50] LABS: BAND NEUTROPHILS 3 %; EOSINOPHILS % (MANUAL) 1 %; LYMPHOCYTES % (MANUAL) 5 %; MICROCYTOSIS SLIGHT; MONOCYTES % (MANUAL) 5 %; NEUTROPHILS % (MANUAL) 86 %
--- NOTE | 2018-02-04 11:56 | Diagnostic Imaging Report ---
INDICATION: Lung cancer. Unresponsive patient. Exam compared with study of 3 days earlier. Coarsened bilateral interstitial and nodular opacities are largely stable from previous exam. Airspace like density in the periphery of the right upper lobe however may have increased. The possibility of some mild pneumonia superimposed upon the otherwise chronic finding could not be excluded with confidence. No effusion or pneumothorax. IMPRESSION: Chronic lung disease and bilateral nodules are redemonstrated unchanged from the recent exam. There is some more vague airspace like density in the right upper lobe laterally just above the fissure which may reflect some developing pneumonia. No other potential interval change. Dictated by: Dictated on workstation # [id number]
--- NOTE | 2018-02-04 11:58 | Diagnostic Imaging Report ---
PROCEDURE: CT head with and without contrast. TECHNIQUE: Multiple contiguous axial images were obtained through the brain before and after the administration of intravenous contrast. INDICATION: Fever, weakness, and unresponsive. COMPARISON: None FINDINGS: The ventricles are normal in size, shape and position. There is no midline shift or mass effect. There is no hemorrhage or evidence of acute ischemia. There is no abnormal enhancement or mass. No extra-axial fluid collection is identified. There is no cerebral edema. The bony calvarium, visualized paranasal sinuses and mastoids are normal. IMPRESSION: Negative CT head. Dictated by: Dictated on workstation # [id number]
[2018-02-04 12:00] LABS: BILIRUBIN,URINE NEGATIVE (NEGATIVE); CLARITY,URINE VERY CLOUDY; COLOR,URINE YELLOW; GLUCOSE, URINE (UA) NEGATIVE (NEGATIVE); KETONES,URINE 3+ (NEGATIVE); LEUKOCYTE ESTERASE ,URINE 3+ (NEGATIVE); NITRITE,URINE NEGATIVE (NEGATIVE); PH,URINE 7 (5-9); PROTEIN,URINE 3+ (NEGATIVE); UROBILINOGEN,URINE 1 MG/DL (NORMAL)
[2018-02-04 12:10] LABS: BACTERIA,URINE TRACE /HPF; RBC,URINE TNTC /HPF; WBC,URINE TNTC /HPF
[2018-02-04] MEDS ORDERED: PIPERACILLIN SODIUM/TAZOBACTAM 4.5 GM in D5W 100 ML IVPB 100 ML IV ONE (12:45)
--- OUTSIDE RECORDS SUMMARY | 2018-02-04 13:08 | XMS REPORT | Continuity of Care Document ---
Author Author [facility] Organization [facility] Address Unknown Phone Unavailable Allergies Active Description Code Type Severity Reaction Onset Reported/Identified Relationship to Patient Clinical Status Yes No Known Drug Allergies [id number] Drug Allergy Unknown N/A 10/16/2014 Yes Sulfa (Sulfonamide Antibiotics) [id number] Drug Allergy Mild N/A 2017 Medications There is no data. Problems Date Dx Coded Attending Type Code Diagnosis Diagnosed By 04/20/2013 GITA PATTERSON DO 244.9 HYPOTHYROIDISM 04/20/2013 GITA PATTERSON DO 454.1 VARICOSE VEINS OF LOWER EXTREMITIES WITH INFLAMMATION 04/20/2013 GITA PATTERSON DO V04.81 FLU SHOT 04/20/2013 MANUEL CARVER MD 244.9 HYPOTHYROIDISM 04/20/2013 MANUEL CARVER MD 454.1 VARICOSE VEINS OF LOWER EXTREMITIES WITH INFLAMMATION 04/20/2013 MANUEL CARVER MD V04.81 FLU SHOT 04/20/2013 MANUEL CARVER MD 244.9 HYPOTHYROIDISM 04/20/2013 MANUEL CARVER MD 454.1 VARICOSE VEINS OF LOWER EXTREMITIES WITH INFLAMMATION 04/20/2013 MANUEL CARVER MD V04.81 FLU SHOT 04/20/2013 MANUEL CARVER MD 244.9 HYPOTHYROIDISM 04/20/2013 MANUEL CARVER MD 454.1 VARICOSE VEINS OF LOWER EXTREMITIES WITH INFLAMMATION 04/20/2013 MANUEL CARVER MD V04.81 FLU SHOT 04/20/2013 MANUEL CARVER MD 244.9 HYPOTHYROIDISM 04/20/2013 MANUEL CARVER MD 454.1 VARICOSE VEINS OF LOWER EXTREMITIES WITH INFLAMMATION 04/20/2013 MANUEL CARVER MD V04.81 FLU SHOT 04/20/2013 GITA PATTERSON DO 244.9 HYPOTHYROIDISM 04/20/2013 GITA PATTERSON DO 454.1 VARICOSE VEINS OF LOWER EXTREMITIES WITH INFLAMMATION 04/20/2013 PATTERSON DO, GITA K V04.81 FLU SHOT 04/20/2013 PATTERSON DO, GITA K 244.9 HYPOTHYROIDISM 04/20/2013 PATTERSON DO, GITA K 454.1 VARICOSE VEINS OF LOWER EXTREMITIES WITH INFLAMMATION 04/20/2013 PATTERSON DO, GITA K V04.81 FLU SHOT 04/20/2013 WHITE DDS, FLORENCIO J 244.9 HYPOTHYROIDISM 04/20/2013 WHITE DDS, FLORENCIO J 454.1 VARICOSE VEINS OF LOWER EXTREMITIES WITH INFLAMMATION 04/20/2013 WHITE DDS, FLORENCIO J V04.81 FLU SHOT 04/20/2013 MANUEL CARVER MD N 244.9 HYPOTHYROIDISM 04/20/2013 MANUEL CARVER MD N 454.1 VARICOSE VEINS OF LOWER EXTREMITIES WITH INFLAMMATION 04/20/2013 MANUEL CARVER MD N V04.81 FLU SHOT 04/20/2013 PATTERSON DO, GITA K 244.9 HYPOTHYROIDISM 04/20/2013 PATTERSON DO, GITA K 454.1 VARICOSE VEINS OF LOWER EXTREMITIES WITH INFLAMMATION 04/20/2013 PATTERSON DO, GITA K V04.81 FLU SHOT 04/20/2013 MANUEL CARVER MD N 244.9 HYPOTHYROIDISM 04/20/2013 MANUEL CARVER MD N 454.1 VARICOSE VEINS OF LOWER EXTREMITIES WITH INFLAMMATION 04/20/2013 MANUEL CARVER MD N V04.81 FLU SHOT 04/20/2013 WHITE DDS, MORENA D 244.9 HYPOTHYROIDISM 04/20/2013 WHITE DDS, MORENA D 454.1 VARICOSE VEINS OF LOWER EXTREMITIES WITH INFLAMMATION 04/20/2013 WHITE DDS, MORENA D V04.81 FLU SHOT 04/20/2013 MANUEL CARVER MD N 244.9 HYPOTHYROIDISM 04/20/2013 MANUEL CARVER MD N 454.1 VARICOSE VEINS OF LOWER EXTREMITIES WITH INFLAMMATION 04/20/2013 MANUEL CARVER MD N V04.81 FLU SHOT 04/20/2013 MANUEL CARVER MD N 244.9 HYPOTHYROIDISM 04/20/2013 MANUEL CARVER MD N 454.1 VARICOSE VEINS OF LOWER EXTREMITIES WITH INFLAMMATION 04/20/2013 MANUEL CAVRER MD N V04.81 FLU SHOT 06/14/2013 MANUEL CARVER MD N 242.90 THYROTOXICOSIS WITHOUT GOITER OR OTHER CAUSE AND WITHOUT THYROTOXIC CRISIS OR STORM 06/14/2013 MANUEL CARVER MD N 242.90 THYROTOXICOSIS WITHOUT GOITER OR OTHER CAUSE AND WITHOUT THYROTOXIC CRISIS OR STORM 06/14/2013 MANUEL CARVER MD N 242.90 THYROTOXICOSIS WITHOUT GOITER OR OTHER CAUSE AND WITHOUT THYROTOXIC CRISIS OR STORM 06/14/2013 MANUEL CARVER MD N 242.90 THYROTOXICOSIS WITHOUT GOITER OR OTHER CAUSE AND WITHOUT THYROTOXIC CRISIS OR STORM 06/14/2013 GITA PATTERSON DO K 242.90 THYROTOXICOSIS WITHOUT GOITER OR OTHER CAUSE AND WITHOUT THYROTOXIC CRISIS OR STORM 06/14/2013 GITA PATTERSON DO K 242.90 THYROTOXICOSIS WITHOUT GOITER OR OTHER CAUSE AND WITHOUT THYROTOXIC CRISIS OR STORM 06/14/2013 FLORENCIO DUMONT DDS 242.90 THYROTOXICOSIS WITHOUT GOITER OR OTHER CAUSE AND WITHOUT THYROTOXIC CRISIS OR STORM 06/14/2013 MANUEL CARVER MD N 242.90 THYROTOXICOSIS WITHOUT GOITER OR OTHER CAUSE AND WITHOUT THYROTOXIC CRISIS OR STORM 06/14/2013 GITA PATTERSON DO K 242.90 THYROTOXICOSIS WITHOUT GOITER OR OTHER CAUSE AND WITHOUT THYROTOXIC CRISIS OR STORM 06/14/2013 MANUEL CARVER MD N 242.90 THYROTOXICOSIS WITHOUT GOITER OR OTHER CAUSE AND WITHOUT THYROTOXIC CRISIS OR STORM 06/14/2013 MORENA DUMONT DDS 242.90 THYROTOXICOSIS WITHOUT GOITER OR OTHER CAUSE AND WITHOUT THYROTOXIC CRISIS OR STORM 06/14/2013 MANUEL CARVER MD 242.90 THYROTOXICOSIS WITHOUT GOITER OR OTHER CAUSE AND WITHOUT THYROTOXIC CRISIS OR STORM 06/14/2013 MANUEL CARVER MD N 242.90 THYROTOXICOSIS WITHOUT GOITER OR OTHER CAUSE AND WITHOUT THYROTOXIC CRISIS OR STORM 07/24/2013 MANUEL CARVER MD V72.31 ROUTINE GYNECOLOGICAL EXAMINATION 07/24/2013 MANUEL CARVER MD V72.31 ROUTINE GYNECOLOGICAL EXAMINATION 07/24/2013 MANUEL CARVER MD V72.31 ROUTINE GYNECOLOGICAL EXAMINATION 07/24/2013 GITA PATTERSON DO V72.31 ROUTINE GYNECOLOGICAL EXAMINATION 07/24/2013 GITA PATTERSON DO V72.31 ROUTINE GYNECOLOGICAL EXAMINATION 07/24/2013 FLORENCIO DUOMNT DDS V72.31 ROUTINE GYNECOLOGICAL EXAMINATION 07/24/2013 MANUEL CARVER MD N V72.31 ROUTINE GYNECOLOGICAL EXAMINATION 07/24/2013 YESENIA BARTLETT GITA K V72.31 ROUTINE GYNECOLOGICAL EXAMINATION 07/24/2013 MANUEL CARVER MD V72.31 ROUTINE GYNECOLOGICAL EXAMINATION 07/24/2013 WHITE DDS, MORENA Falcon V72.31 ROUTINE GYNECOLOGICAL EXAMINATION 07/24/2013 MANUEL CARVER MD V72.31 ROUTINE GYNECOLOGICAL EXAMINATION 07/24/2013 MANUEL CARVER MD V72.31 ROUTINE GYNECOLOGICAL EXAMINATION 08/22/2013 MANUEL CARVER MD N 792.1 Hemoccult positive stool 08/22/2013 MANUEL CARVER MD N 792.1 Hemoccult positive stool 08/22/2013 YESENIA BARTLETT GITA K 792.1 Hemoccult positive stool 08/22/2013 YESENIA BARTLETT GITA K 792.1 Hemoccult positive stool 08/22/2013 FLORENCIO DUMONT DDS 792.1 Hemoccult positive stool 08/22/2013 MANUEL CARVER MD N 792.1 Hemoccult positive stool 08/22/2013 JOSH PATTERSON DOA K 792.1 Hemoccult positive stool 08/22/2013 MANUEL CARVER MD N 792.1 Hemoccult positive stool 08/22/2013 WHITE RANJITS, MORENA Falcon 792.1 Hemoccult positive stool 08/22/2013 MANUEL CARVER MD N 792.1 Hemoccult positive stool 08/22/2013 MANUEL CARVER MD N 792.1 Hemoccult positive stool 05/24/2014 YESENIA ABRTLETT GITA K 599.0 URINARY TRACT INFECTION 05/24/2014 YESENIA BARTLETT, GITA K 784.0 HEADACHE 05/24/2014 PATTERSON DO GITA K 787.91 DIARRHEA 05/24/2014 MANUEL CARVER MD N 599.0 URINARY TRACT INFECTION 05/24/2014 MANUEL CARVER MD N 784.0 HEADACHE 05/24/2014 MANUEL CARVER MD N 787.91 DIARRHEA 05/24/2014 WHITE DDS, MORENA D 599.0 URINARY TRACT INFECTION 05/24/2014 WHITE DDS, MORENA D 784.0 HEADACHE 05/24/2014 WHITE DDS, MORENA D 787.91 DIARRHEA 05/24/2014 MEHUL SMITH, MANUEL N 599.0 URINARY TRACT INFECTION 05/24/2014 MANUEL CARVER MD N 784.0 HEADACHE 05/24/2014 MANUEL CARVER MD N 787.91 DIARRHEA 05/24/2014 MANUEL CARVER MD N 599.0 URINARY TRACT INFECTION 05/24/2014 MANUEL CARVER MD N 784.0 HEADACHE 05/24/2014 MANUEL CARVER MD N 787.91 DIARRHEA 10/01/2014 MANUEL CARVER MD N 786.05 SHORTNESS OF BREATH 10/16/2014 MANUEL CARVER MD N Ot V76.12 10/16/2014 CHANEL TOMLINSON MD Ot 242.00 10/16/2014 DAVI SMITH, CHANEL J Ot 401.9 10/16/2014 CHANEL TOMLINSON MD Ot 729.5 10/16/2014 CHANEL TOMLINSON MD Ot 785.1 10/16/2014 CHANEL TOMLINSON MD J Ot 786.05 10/16/2014 CHANEL TOMLINSON MD J Ot 786.09 10/16/2014 CHANEL TOMLINSON MD J Ot V12.51 10/16/2014 CHANEL TOMLINSON MD J Ot 242.00 10/16/2014 CHANEL TOMLINSON MD Ot 453.40 10/16/2014 CHANEL TOMLINSON MD J Ot 785.1 10/16/2014 CHANEL TOMLINSON MD J Ot 786.05 10/16/2014 CHANEL TOMLINSON MD J Ot 242.00 10/16/2014 CHANEL TOMLINSON MD J Ot 401.9 10/16/2014 ABEL TOMLINSON MDHAR J Ot 729.5 10/16/2014 DAVI SMITH, BASHAR J Ot 785.1 10/16/2014 CHANEL TOMLINSON MD Ot 786.05 10/16/2014 CHANEL TOMLINSON MD J Ot 786.09 10/16/2014 CHANEL TOMLINSON MD J Ot V12.51 10/16/2014 DAVI SMITH, BASGENEVA J Ot 242.00 10/16/2014 CHANEL TOMLINSON MD Ot 453.40 10/16/2014 CHANEL TOMLINSON MD J Ot 785.1 10/16/2014 CHANEL TOMLINSON MD Ot 786.05 10/16/2014 CHANEL TOMLINSON MD Ot 242.00 10/16/2014 CHANEL TOMLINSON MD Ot 453.40 10/16/2014 CHANEL TOMLINSON MD Ot 785.1 10/16/2014 CHANEL TOMLINSON MD Ot 786.05 10/16/2014 CHANLE TOMLINSON MD Ot 246.8 DISORDERS OF THYROID NEC 10/16/2014 CHANEL TOMLINSON MD Ot 414.01 CORONARY ATHEROSCLEROSIS OF [place] CORON 10/16/2014 CHANEL TOMLINSON MD Ot 416.8 CHR PULMON HEART DIS NEC 10/16/2014 CHANEL TOMLINSON MD Ot 427.69 PREMATURE BEATS NEC 10/16/2014 CHANEL TOMLINSON MD Ot 780.2 SYNCOPE AND COLLAPSE 10/16/2014 CHANEL TOMLINSON MD Ot 786.09 RESPIRATORY ABNORM NEC 10/16/2014 CHANEL TOMLINSON MD Ot V12.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 10/16/2014 CHANEL TOMLINSON MD Ot V58.69 OT MED,LT,CURRENT USE 10/16/2014 MEHUL SMITH, MANUEL Amaral [...] CHANEL TOMLINSON MD Ot 729.5 10/16/2014 DAVI SMITH CHANEL Landin Ot 785.1 10/16/2014 DAVI SMITH, [...] DAVI SMITH, CHANEL Landin Ot 785.1 11/07/2014 CHANEL TOMLINSON MD Ot 786.05 11/07/2014 KAYLIE HAMPTON DO M Ot 416.8 11/07/2014 DALILA HAMPTON DOSON M Ot 453.40 11/07/2014 DALILA HAMPTON DOSON M Ot 786.05 11/07/2014 DALILA HAMPTON DOSON M Ot 793.19 11/07/2014 DALILA HAMPTON DOSON M Ot 162.9 11/15/2014 DALILA HAMPTON DOSON M Ot 786.05 11/15/2014 DALILA HAMPTON DOSON M Ot 786.6 11/27/2014 MANUEL CARVER MD N Ot V76.12 11/27/2014 DAVI SMITH, CHANEL Landin [...] KAYLIE HAMPTON DO M Ot 786.05 11/27/2014 DALILA HAMPTON DOSON M Ot 793.19 11/27/2014 DALILA HAMPTON DOSON M Ot 162.9 11/27/2014 DALILA HAMPTON DOSON M Ot 786.05 11/27/2014 DALILA HAMPTON DOSON M Ot 786.6 12/02/2014 MEMODALILA SCHULTE DOSON M Ot 786.05 12/02/2014 DALILA HAMPTON DOSON M Ot 786.6 12/03/2014 MEMO BARTLETT KAYLIE M Ot 786.05 12/03/2014 DALILA HAMPTON DOSON [...] Landin Ot 242.00 12/04/2014 DAVI SMITH, CHANEL Lnadin Ot 453.40 12/04/2014 DAVI SMITH, CHANEL Landin [...] M Ot 786.6 12/04/2014 ELMER SMITH, FATEMEH S Ot 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 12/10/2014 [...] DAVI SMITH, CHANEL Landin Ot 242.00 12/10/2014 CHANEL TOMLINSON MD Ot 453.40 12/10/2014 DAVI SMITH, CHANEL Landin Ot 785.1 12/10/2014 CHANEL TOMLINSON MD Ot 786.05 12/10/2014 KAYLIE HAMPTON DO Ot [...] HAMPTON DO Ot 793.19 12/13/2014 SANTIAGO GARZA Ot 162.9 12/13/2014 SANTIAGO GARZA Ot 242.00 12/13/2014 SANTIAGO GARZA Ot 416.8 12/13/2014 SANTIAGO GARZA Ot V58.69 12/13/2014 KAYLIE HAMPTON DO Ot 786.05 12/13/2014 KAYLIE HAMPTON DO Ot 786.6 12/13/2014 KAYLIE HAMPTON DO Ot 162.9 12/13/2014 DAVI SMITH, CHANEL J Ot 242.00 12/13/2014 DAVI SMITH, BASHAR J Ot 401.9 12/13/2014 DAVI SMITH, BASHAR J Ot 729.5 12/13/2014 DAVI SMITH, BASHAR J Ot 785.1 12/13/2014 DAVI SMITH, BASGENEVA J Ot 786.05 12/13/2014 DAVI SMITH, BASHAR J Ot 786.09 12/13/2014 DAVI SMITH, BASHAR J Ot V12.51 12/13/2014 DAVI SMITH, BASHAR J Ot 242.00 12/13/2014 DAVI SMITH, BASHAR J Ot 453.40 12/13/2014 DAVI SMITH, CHANEL J Ot 785.1 12/13/2014 DAVI SMITH, CHANEL J Ot 786.05 12/19/2014 DAVI SMITH, ABELHAR J Ot 242.00 12/19/2014 DAVI SMITH, BASHAR J Ot 401.9 12/19/2014 DAVI SMITH, BASHAR J Ot 729.5 12/19/2014 DAVI SMITH, ABELHAR J Ot 785.1 12/19/2014 DAVI SMITH, CHANEL J Ot 786.05 12/19/2014 DAVI SMITH, BASHAR J Ot 786.09 12/19/2014 DAVI SMITH, CHANEL J Ot V12.51 12/19/2014 DAVI SMITH, ABELHAR J Ot 242.00 12/19/2014 DAVI SMITH, CHANEL J Ot 453.40 12/19/2014 DAVI SMITH, ABELHAR J Ot 785.1 12/19/2014 DAVI SMITH, BASHAR J Ot 786.05 12/19/2014 KAYLIE HAMPTON DO Ot 416.8 12/19/2014 KAYLIE HAMPTON DO Ot 453.40 12/19/2014 KAYLIE HAMPTON DO M Ot 786.05 12/19/2014 KAYLIE HAMPTON DO Ot 793.19 12/19/2014 KAYLIE HAMPTON DO Ot 162.9 12/19/2014 KAYLIE HAMPTON DO M Ot 786.05 12/19/2014 KAYLIE HAMPTON DO M Ot 786.6 01/16/2015 SANTIAGO GARZA Ot 162.9 01/22/2015 SANTIAGO GARZA Ot 162.9 01/31/2015 KAYLA, BOBAN N Ot [...] DAVI SMITH, CHANEL Landin Ot 786.05 05/09/2015 MEMO BARTLETT KAYLIE M Ot 416.8 05/09/2015 MEMO BARTLETT KAYLIE M Ot 453.40 05/09/2015 MEMO BARTLETT KAYLIE M Ot 786.05 05/09/2015 DALILA HAMPTON DOSON M Ot 793.19 05/09/2015 MEMO BARTLETT KAYLIE M Ot 162.9 05/09/2015 DALILA HAMPTON DOSON M Ot 786.05 05/09/2015 DALILA HAMPTON DOSON M Ot 786.6 05/09/2015 SANTIAGO GARZA Ot 162.9 05/09/2015 MARTIN MUHAMMAD VARNISH REMOVER Ot 162.9 05/09/2015 MARTIN MUHAMMAD VARNISH REMOVER Ot 196.9 05/09/2015 MARTIN MUHAMMAD VARNISH REMOVER Ot 242.00 05/09/2015 MARTIN MUHAMMAD VARNISH REMOVER Ot V58.69 05/09/2015 SANTIAGO GARZA Ot C34.90 05/09/2015 SANTIAGO GARZA Ot E05.00 05/09/2015 SANTIAGO GARZA Ot Z79.899 05/09/2015 MARTIN MUHAMMAD VARNISH REMOVER Ot C34.90 05/09/2015 MARTIN MUHAMMAD VARNISH REMOVER Ot E05.00 05/09/2015 MARTIN MUHAMMAD VARNISH REMOVER Ot Z79.899 05/26/2015 RADHA HALL DO L Ot E05.00 05/26/2015 RADHA HALL DO L Ot R25.2 06/17/2015 MARTIN MUHAMMAD VARNISH REMOVER Ot 162.9 06/17/2015 MARTIN MUHAMMAD VARNISH REMOVER Ot 196.9 06/17/2015 MUHAMMAD, HILAH S VARNISH REMOVER Ot 242.00 06/17/2015 MARTIN MUHAMMAD S VARNISH REMOVER Ot V58.69 06/17/2015 KAYLA KELLEEAN N Ot C34.90 06/17/2015 KAYLA SANTIAGO N Ot E05.00 06/17/2015 KAYLA KELLEEAN N Ot Z79.899 06/17/2015 MARTIN MUHAMMAD S VARNISH REMOVER Ot C34.90 06/17/2015 MARTIN MUHAMMAD S VARNISH REMOVER Ot E05.00 06/17/2015 MARTIN MUHAMMAD S VARNISH REMOVER Ot Z79.899 06/17/2015 [place] DO, RADHA L Ot E05.00 06/17/2015 [facility] DO, RADHA L Ot E05.00 06/17/2015 [facility], RADHA L Ot R25.2 06/17/2015 KAYLA SANTIAGO N Ot C34.81 06/25/2015 MARTIN MUHAMMAD S VARNISH REMOVER Ot 162.9 06/25/2015 MARTIN MUHAMMAD S VARNISH REMOVER Ot 196.9 06/25/2015 MARTIN MUHAMMAD S VARNISH REMOVER Ot 242.00 06/25/2015 MARTIN MUHAMMAD S VARNISH REMOVER Ot V58.69 06/25/2015 KAYLA SANTIAGO N Ot C34.90 06/25/2015 KAYLA SANTIAGO N Ot E05.00 06/25/2015 KAYLA SANTIAGO N Ot Z79.899 06/25/2015 MARTIN MUHAMMAD S VARNISH REMOVER Ot C34.90 06/25/2015 MARTIN MUHAMMAD S VARNISH REMOVER Ot E05.00 06/25/2015 MARTIN MU[place]AMMAD S VARNISH REMOVER Ot Z79.899 06/25/2015 [place] DO, RADHA L Ot E05.00 06/25/2015 [facility], RADHA L Ot E05.00 06/25/2015 [facility], RADHA L Ot R25.2 06/25/2015 KAYLASANTIAGO SOLARES N Ot C34.81 06/26/2015 KAYLAKELLEE SOLARESAN N Ot 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 06/26/2015 SANTIAGO GARZA N Ot E05.00 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 06/26/2015 SANTIAGO GARZA N Ot 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 07/04/2015 MEHUL SMITH, MANUEL [...] DO Ot 793.19 07/04/2015 KAYLIE HAMPTON DO M Ot 162.9 07/04/2015 KAYLIE HAMPTON DO M Ot 786.05 07/04/2015 KAYLIE HAMPTON DO M Ot 786.6 07/04/2015 SANTIAGO GARZA Cristin Ot 162.9 07/04/2015 MARTIN MUHAMMAD VARNISH REMOVER Ot 162.9 07/04/2015 MARTIN MUHAMMAD VARNISH REMOVER Ot 196.9 07/04/2015 MARTIN MUHAMMAD VARNISH REMOVER Ot 242.00 07/04/2015 MARTIN MUHAMMAD VARNISH REMOVER Ot V58.69 07/04/2015 MARTIN MUHAMMAD VARNISH REMOVER Ot C34.90 07/04/2015 MARTIN MUHAMMAD VARNISH REMOVER Ot E05.00 07/04/2015 MARTIN MUHAMMAD VARNISH REMOVER Ot Z79.899 07/04/2015 RADHA HALL DO Ot [...] 07/15/2015 KAYLA, BOBAN N Ot Z79.899 09/17/2015 ANSLEY MUHAMMADAH S VARNISH REMOVER Ot C34.81 09/17/2015 ANSLEY MUHAMMADAH S VARNISH REMOVER Ot C79.89 09/17/2015 ANSLEY MUHAMMADHEATHER S VARNISH REMOVER Ot E05.00 09/17/2015 MARTIN MUHAMMAD S VARNISH REMOVER Ot L27.0 09/17/2015 ANSLEY MUHAMMADAH S VARNISH REMOVER Ot T45.1X5A 09/17/2015 ANSLEY MUHAMMADHEATHER S VARNISH REMOVER Ot Z79.899 09/18/2015 RAFAEL BARTLETTRADHA L Ot E05.00 09/18/2015 ANSLEY MUHAMMADHEATHER S VARNISH REMOVER Ot C34.81 09/18/2015 ANSLEY MUHAMMADHEATHER S VARNISH REMOVER Ot C79.89 09/18/2015 ANSLEY MUHAMMADHEATHER S VARNISH REMOVER Ot E05.00 09/18/2015 ANSLEY MUHAMMADHEATHER S VARNISH REMOVER Ot L27.0 09/18/2015 JB ANSLEYAH S VARNISH REMOVER Ot T45.1X5A 09/18/2015 ANSLEY MUHAMMADAH S VARNISH REMOVER Ot Z79.899 09/18/2015 KELLEE GARZAAN N Ot C34.81 09/18/2015 KAYLA, BOBAN N Ot E05.00 09/18/2015 KAYLA, BOBAN N Ot Z79.899 09/18/2015 Ot C34.81 09/23/2015 ANSLEY MUHAMMADAH S VARNISH REMOVER Ot C34.81 09/23/2015 ANSLEY MUHAMMADAH S VARNISH REMOVER Ot C79.89 09/23/2015 MARTIN MUHAMMAD S VARNISH REMOVER Ot E05.00 09/23/2015 MARTIN MUHAMMAD S VARNISH REMOVER Ot L27.0 09/23/2015 MARTIN MUHAMMAD VARNISH REMOVER Ot T45.1X5A 09/23/2015 MARTIN MUHAMMAD VARNISH REMOVER Ot Z79.899 10/01/2015 MARTIN MUHAMMAD VARNISH REMOVER Ot C34.81 10/01/2015 MARTIN MUHAMMAD VARNISH REMOVER Ot E05.00 10/01/2015 MARTIN MUHAMMAD VARNISH REMOVER Ot L27.0 10/01/2015 MARTIN MUHAMMAD VARNISH REMOVER Ot T45.1X5A 10/01/2015 MARTIN MUHAMMAD VARNISH REMOVER Ot Z79.899 10/01/2015 HALL , RADHA L Ot E05.00 10/01/2015 RAFAEL BARTLETT, RADHA L Ot I10 10/01/2015 Ot C34.81 10/01/2015 HALL DO, RADHA L Ot E05.00 10/01/2015 MARTIN MUHAMMAD VARNISH REMOVER Ot C34.81 10/03/2015 MARTIN MUHAMMAD VARNISH REMOVER Ot C34.81 10/06/2015 MEHUL SMITH, MANUEL Amaral Ot V76.12 10/06/2015 DAVI SMITH, CHANEL Landin Ot 242.00 10/06/2015 DAVI SMITH, CHANEL Landin Ot 401.9 10/06/2015 DAVI SMITH, CHANEL Landin Ot 729.5 10/06/2015 DAVI SMITH, CHANEL Landin Ot 785.1 10/06/2015 DAIV SMITH, CHANEL Landin Ot 786.05 10/06/2015 DAVI SMITH, CHANEL Landin Ot 786.09 10/06/2015 DAVI SMITH, CHANEL Landin Ot V12.51 10/06/2015 DAVI SMITH, CHANEL Landin Ot 242.00 10/06/2015 DAVI SMITH, CHANEL Landin Ot 453.40 10/06/2015 DAVI SMITH, CHANEL Landin Ot 785.1 10/06/2015 DAVI SMITH, CHANEL Landin Ot 786.05 10/06/2015 KAYLIE HAMPTON DO Ot 416.8 10/06/2015 KAYLIE HAMPTON DO Ot 453.40 10/06/2015 KAYLIE HAMPTON DO Ot 786.05 10/06/2015 KAYLIE HAMPTON DO Ot 793.19 10/06/2015 KAYLIE HAMPTON DO M Ot 162.9 10/06/2015 KAYLIE HAMPTON DO M Ot 786.05 10/06/2015 MEMOKAYLIE SCHULTE DO M Ot 786.6 10/06/2015 SANTIAGO GARZA N Ot 162.9 10/06/2015 JB MARTIN S VARNISH REMOVER Ot 162.9 10/06/2015 JB MARTIN S VARNISH REMOVER Ot 196.9 10/06/2015 JB MARTIN S VARNISH REMOVER Ot 242.00 10/06/2015 JB MARTIN S VARNISH REMOVER Ot V58.69 10/06/2015 JB MARTIN S VARNISH REMOVER Ot C34.90 10/06/2015 JB MARTIN S VARNISH REMOVER Ot E05.00 10/06/2015 ANSLEY MUHAMMADHEATHER S VARNISH REMOVER Ot Z79.899 10/06/2015 JOIE HALL DOISON L Ot E05.00 10/06/2015 JOIE HALL DOISON L Ot E05.00 10/06/2015 JOIE HALL DOISON L Ot R25.2 10/06/2015 SANTIAGO GARZA N Ot C34.81 10/06/2015 ANSLEY MUHAMMADHEATHER S VARNISH REMOVER Ot C34.81 10/06/2015 ANSLEY MUHAMMADHEATHER S VARNISH REMOVER Ot E05.00 10/06/2015 MARTIN MUHAMMAD S VARNISH REMOVER Ot L27.0 10/06/2015 ANSLEY MUHAMMADHEATHER S VARNISH REMOVER Ot T45.1X5A 10/06/2015 MARTIN MUHAMMAD S VARNISH REMOVER Ot Z79.899 10/06/2015 KAYLASANTIAGO N Ot C34.81 10/06/2015 KAYLAKELLEEAN N Ot E05.00 10/06/2015 KAYLAKELLEEAN N Ot Z79.899 10/06/2015 RAFAEL BARTLETT RADHA L Ot E05.00 10/06/2015 RAFAEL BARTLETT RADHA L Ot I10 10/06/2015 Ot C34.81 10/06/2015 RAFAEL BARTLETT RADHA L Ot E05.00 10/06/2015 MARTIN MUHAMMAD S VARNISH REMOVER Ot C34.81 10/06/2015 ANSLEY MUHAMMADHEATHER S VARNISH REMOVER Ot C79.89 10/06/2015 MARTIN MUHAMMAD VARNISH REMOVER Ot E05.00 10/06/2015 MARTIN MUHAMMAD VARNISH REMOVER Ot L27.0 10/06/2015 MARTIN MUHAMMAD VARNISH REMOVER Ot T45.1X5A 10/06/2015 MARTIN MUHAMMAD VARNISH REMOVER Ot Z79.899 10/06/2015 MARTIN MUHAMMAD VARNISH REMOVER Ot C34.81 10/08/2015 RADHA HALL DO Ot E05.00 10/12/2015 KAYLASANTIAGO Ot 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 10/12/2015 SANTIAGO GARZA Ot E05.00 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 10/12/2015 SANTIAGO GARZA Ot Z79.899 OTHER CUSTODIAL (CURRENT) DRUG THERAPY 11/11/2015 MARTIN MUHAMM[place] VARNISH REMOVER Ot 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 11/19/2015 MANUEL CARVER MD Ot V76.12 OTH SCREEN [...] DO Ot 786.05 SHORTNESS OF BREATH 11/19/2015 MEMOKAYLIE SCHULTE DO Ot 793.19 OTHER NONSPECIFIC ABNORMAL FINDING OF [place]IS[place] 11/19/2015 KAYLIE HAMPTON DO Miranda Ot 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 11/19/2015 KAYLIE HAMPTON DO Ot 786.05 SHORTNESS OF BREATH 11/19/2015 MEMO KAYLIE Jean Ot 786.6 CHEST SWELLING/MASS/LUMP 11/19/2015 SANTIAGO GARZA Ot 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 11/19/2015 MARTIN [place]AM[place] VARNISH REMOVER Ot 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 11/19/2015 MARTIN MU[place]AM[place] VARNISH REMOVER Ot 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 11/19/2015 MARTIN [place] VARNISH REMOVER Ot 242.00 TOX DIF GOITER NO CRISIS 11/19/2015 MARTIN MUHAMMADP Ot V58.69 OTH MED,LT,CURRENT USE 11/19/2015 MARTIN [place]AM[place] VARNISH REMOVER Ot 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 [facility] 11/19/2015 MARTIN MUHAMMADP Ot E05.00 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 11/19/2015 MARTIN MUHAMMADP Ot Z79.899 OTHER CUSTODIAL (CURRENT) DRUG THERAPY 11/19/2015 RAFAEL BARTLETT RADHA L Ot E05.00 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 11/19/2015 RAFAEL BARTLETT RADHA L Ot E05.00 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 11/19/2015 JOIE HALL DOISON L Ot R25.2 CRAMP AND SPASM 11/19/2015 SANTIAGO GARZA Ot 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 11/19/2015 MARTIN MUHAMMADP Ot 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 11/19/2015 MARTIN MU[place]AM[place] VARNISH REMOVER Ot E05.00 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 11/19/2015 MARTIN MU[place]AM[place] VARNISH REMOVER Ot L27.0 GEN SKIN ERUPTION DUE TO DRUGS AND MEDS 11/19/2015 MARTIN MUHAMMADP Ot T45.1X5A ADVERSE EFFECT OF ANTINEOPLASTIC AND IMM 11/19/2015 MARTIN MUHAMMAD VARNISH REMOVER Ot Z79.899 OTHER CUSTODIAL (CURRENT) DRUG THERAPY 11/19/2015 RAFAEL BARTLETT RADHA [...] DIFFUSE GOITER W/O THYR 11/19/2015 MARTIN MU[place]AM[place] VARNISH REMOVER Ot L27.0 GEN SKIN ERUPTION DUE TO DRUGS AND MEDS 11/19/2015 MARTIN MUHAMMAD Ot T45.1X5A ADVERSE EFFECT OF ANTINEOPLASTIC AND IMM 11/19/2015 MARTIN MUHAMMAD Ot 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 11/19/2015 MARTIN [place]AM[place] VARNISH REMOVER Ot 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 11/19/2015 RAFAEL BARTLETT RADHA L Ot E05.00 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 11/19/2015 SANTIAGO GARZA Ot 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 11/19/2015 SANTIAGO GARZA Ot E05.00 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 11/19/2015 SANTIAGO GARZA Ot 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 11/19/2015 SANTIAGO GARZA Ot 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 11/19/2015 SANTIAGO GARZA Ot E05.00 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 11/19/2015 SANTIAGO GARZA Ot 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 11/20/2015 SANTIAGO GARZA Cristin Ot 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 11/20/2015 SANTIAGO GARZA Ot E05.00 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 11/20/2015 SANTIAGO GARZA Ot 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 11/20/2015 MARTIN MUHAMMAD VARNISH REMOVER Ot 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 11/20/2015 MARTIN MUHAMMAD VARNISH REMOVER Ot E05.00 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 11/20/2015 MARTIN MUHAMMAD VARNISH REMOVER Ot Z79.899 OTHER CUSTODIAL (CURRENT) DRUG THERAPY 11/21/2015 MARTIN MUHAMMAD VARNISH REMOVER Ot 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 11/21/2015 MARTIN MUHAMMAD VARNISH REMOVER Ot C79.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 11/21/2015 MARTIN MUHAMMADP Ot E05.00 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 11/21/2015 MARTIN MUHAMMADP Ot R21 RASH AND OTHER NONSPECIFIC SKIN ERUPTION 11/21/2015 MARTIN MUHAMM[place] VARNISH REMOVER Ot Z79.899 OTHER CUSTODIAL (CURRENT) DRUG THERAPY 11/21/2015 MARTIN MUHAMM[place] VARNISH REMOVER Ot 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 11/21/2015 MARTIN MUHAMM[place] VARNISH REMOVER Ot C79.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 11/21/2015 MARTIN MUHAMMADP Ot E05.00 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 11/21/2015 MARTIN MUHAMMAD VARNISH REMOVER Ot R21 RASH AND OTHER NONSPECIFIC SKIN ERUPTION 11/21/2015 MARTIN MUHAMMAD VARNISH REMOVER Ot 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 11/27/2015 MARTIN MUHAMMAD VARNISH REMOVER Ot 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 11/27/2015 MARTIN MUHAMMAD VARNISH REMOVER Ot C79.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 11/27/2015 MARTIN MUHAMMADP Ot E05.00 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 11/27/2015 MARTIN MUHAMMAD VARNISH REMOVER Ot L27.0 GEN SKIN ERUPTION DUE TO DRUGS AND MEDS 11/27/2015 MARTIN MUHAMMAD VARNISH REMOVER Ot T45.1X5A ADVERSE EFFECT OF ANTINEOPLASTIC AND IMM 11/27/2015 MARTIN MUHAMMAD VARNISH REMOVER Ot Z79.899 OTHER CUSTODIAL (CURRENT) DRUG THERAPY 11/27/2015 RADHA HALL DO [...] OF ANTINEOPLASTIC AND IMM 12/25/2015 MARTIN MUHAMMAD VARNISH REMOVER Ot 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 12/25/2015 RADHA HALL DO [...] DIFFUSE GOITER W/O THYR 01/08/2016 MARTIN MUHAMMAD VARNISH REMOVER Ot 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 01/08/2016 MARTIN MUHAMMAD VARNISH REMOVER Ot C79.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 01/08/2016 MARTIN MUHAMMADP Ot E05.00 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 01/08/2016 MARTIN MUHAMMAD VARNISH REMOVER Ot R21 RASH AND OTHER NONSPECIFIC SKIN ERUPTION 01/08/2016 MARTIN MUHAMMADP Ot 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 01/08/2016 DAVI SMITH, CHANEL Landin Ot E05.00 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 01/08/2016 RADHA HALL DO Ot E05.00 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 01/08/2016 RADHA HALL DO Ot M54.2 CERVICALGIA 01/08/2016 MARTIN MUHAMMAD Ot 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 01/08/2016 MARTIN MUHAMMAD Ot C79.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 01/08/2016 MARTIN MUHAMMAD Ot E05.00 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 01/08/2016 MARTIN MUHAMMAD Ot R21 RASH AND OTHER NONSPECIFIC SKIN ERUPTION 01/08/2016 MARTIN MUHAMMADP Ot 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 01/08/2016 MARTIN MUHAMMADP Ot 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 01/08/2016 MARTIN MUHAMMADP Ot E05.00 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 01/08/2016 MARTIN MUHAMMADP Ot Z79.899 OTHER CUSTODIAL (CURRENT) DRUG THERAPY 01/09/2016 CHANEL TOMLINSON MD Ot E05.00 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 01/28/2016 MARTIN MUHAMMADP Ot 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 01/28/2016 MARTIN MUHAMMADP Ot 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 01/28/2016 MARTIN MUHAMMADP Ot 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 01/28/2016 MARTIN MUHAMMAD VARNISH REMOVER Ot C79.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 01/28/2016 MARTIN MUHAMMADP Ot E05.00 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 01/28/2016 MARTIN MUHAMMAD Ot R21 RASH AND OTHER NONSPECIFIC SKIN ERUPTION 01/28/2016 MARTIN MUHAMMADP Ot 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 01/28/2016 JOIE HALL DOISON L Ot E05.00 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 01/28/2016 RADHA HALL DO Ot M54.2 CERVICALGIA 01/28/2016 DAVI SMITH, CHANEL Landin Ot E05.00 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 01/29/2016 MARTIN MUHAMMAD VARNISH REMOVER Ot 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 02/03/2016 JOIE HALL DOISON L Ot E05.00 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 02/17/2016 SANTIAGO GARZA Ot 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 02/17/2016 SANTIAGO GARZA Ot E05.00 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 02/17/2016 SANTIAGO GARZA Ot Z79.899 OTHER CUSTODIAL (CURRENT) DRUG THERAPY 02/24/2016 MARTIN MUHAMMADP Ot 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 02/24/2016 MARTIN MUHAMMADP Ot E05.00 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 02/24/2016 MARTIN MUHAMMADP Ot Z79.899 OTHER CUSTODIAL (CURRENT) DRUG THERAPY 02/25/2016 JOIE HALL DOISON L Ot E05.00 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 03/24/2016 SANTIAGO GARZA Ot 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 03/24/2016 SANTIAGO GARZA Ot E05.00 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 03/24/2016 SANTIAGO GARZA Ot Z79.899 OTHER CUSTODIAL (CURRENT) DRUG THERAPY 03/29/2016 KAYLA SANTIAGO Amaral Ot 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 03/29/2016 SANTIAGO GARZA Cristin Ot E05.00 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 03/29/2016 KAYLA KELLEEMEENAKSHI N Ot 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 03/30/2016 KAYLASANTIAGO Ot 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 03/30/2016 KAYLA SANTIAGO Amaral Ot E05.00 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 03/30/2016 KAYLASANTIAGO N Ot 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 05/12/2016 RADHA HALL DO Ot E05.00 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 05/12/2016 KAYLASANTIAGO Ot 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 05/12/2016 KAYLA KELLEEMEENAKSHI Cristin Ot E05.00 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 05/12/2016 KAYLA KELLEEMEENAKSHI N Ot 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 06/07/2016 MARTIN MUHAMMAD VARNISH REMOVER Ot 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 06/08/2016 MARTIN MUHAMMAD VARNISH REMOVER Ot 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 06/10/2016 MARTIN MUHAMMAD VARNISH REMOVER Ot 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 06/27/2016 SANTIAGO GARZA Ot 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 06/27/2016 KAYLASANTIAGO N Ot E05.00 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 06/27/2016 SANTIAGO GARZA Ot Z23 ENCOUNTER FOR IMMUNIZATION 06/27/2016 SANTIAGO GARZA N Ot Z79.899 OTHER CUSTODIAL (CURRENT) DRUG THERAPY 07/06/2016 SANTIAGO GARZA N Ot 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 07/06/2016 SANTIAGO GARZA Ot R42 DIZZINESS AND GIDDINESS 07/06/2016 SANTIAGO GARZA Cristin Ot 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 07/06/2016 SANTIAGO GARZA Cristin Ot R42 DIZZINESS AND GIDDINESS 07/06/2016 HALL DO, RADHA L Ot E05.00 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 07/27/2016 HALL DO, RADHA L Ot E05.00 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 07/28/2016 HALL DO, RADHA L Ot E05.00 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 08/31/2016 SANTIAGO GARZA Cristin Ot 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 08/31/2016 SANTIAGO GARZA Cristin Ot E05.00 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 08/31/2016 SANTIAGO GARZA Cristin Ot Z79.899 OTHER CUSTODIAL (CURRENT) DRUG THERAPY 09/03/2016 Ot 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 09/16/2016 Ot 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 09/16/2016 SANTIAGO GARZA Cristin Ot 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 NEOPLASM OF UPPER LOBE, RIGHT 09/16/2016 KAYLA, SANTIAGO N Ot 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 09/24/2016 KAYLA SANTIAGO Amaral Ot 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 NEOPLASM OF UPPER LOBE, RIGHT 09/24/2016 KAYLA, SANTIAGO N Ot 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 10/07/2016 KAYLA, SANTIAGO Amaral Ot 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 NEOPLASM OF UPPER LOBE, RIGHT 10/07/2016 KAYLA SANTIAGO Amaral Ot 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 11/09/2016 MARTIN MUHAMMADP Ot 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 11/09/2016 MARTIN MUHAMMADP Ot I25.10 ATHSCL HEART DISEASE OF [place] CORONARY 11/09/2016 MARTIN MUHAMMADP Ot 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 PULMONARY HYPERTENSION 11/09/2016 MARTIN MUHAMMADP Ot 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 11/23/2016 MARTIN MUHAMMAD VARNISH REMOVER Ot 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 11/23/2016 MARTIN MUHAMMAD VARNISH REMOVER Ot R52 PAIN, UNSPECIFIED 11/28/2016 SANTIAGO GARZA N Ot 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 11/28/2016 KAYLA KELLEEMEENAKSHI N Ot C79.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 11/28/2016 KAYLA KELLEEMEENAKSHI N Ot E05.00 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 11/28/2016 SANTIAGO GARZA N Ot I25.10 ATHSCL HEART DISEASE OF [place] CORONARY 11/28/2016 KAYLA, SANTIAGO N Ot 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 PULMONARY HYPERTENSION 11/28/2016 KAYLA, SANTIAGO N Ot M54.6 PAIN IN THORACIC SPINE 11/28/2016 KAYLA, SANTIAGO N Ot R05 COUGH 11/28/2016 KAYLAKELLEEAN N Ot 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 11/29/2016 KAYLA SANTIAGO N Ot 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 11/29/2016 KAYLA KELLEEMEENAKSHI N Ot C79.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 11/29/2016 KAYLA, KELLEEMEENAKSHI N Ot E05.00 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 11/29/2016 KAYLA KELLEEAN N Ot I25.10 ATHSCL HEART DISEASE OF [place] CORONARY 11/29/2016 KAYLA SANTIAGO N Ot 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 PULMONARY HYPERTENSION 11/29/2016 KAYLA SANTIAGO N Ot M54.6 PAIN IN THORACIC SPINE 11/29/2016 KAYLA SANTIAGO N Ot R05 COUGH 11/29/2016 KAYLA KELLEEAN N Ot Z79.899 OTHER CUSTODIAL (CURRENT) DRUG THERAPY 12/03/2016 KAYLASANTIAGO N Ot 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 12/03/2016 KAYLA, SANTIAGO N Ot E05.00 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 12/03/2016 KAYLAKELLEEAN N Ot 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 12/08/2016 KAYLASANTIAGO N Ot 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 12/08/2016 SANTIAGO GARZA Ot E05.00 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 12/08/2016 SANTIAGO GARZA Cristin Ot 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 12/31/2016 SANTIAGO GARZA Cristin Ot 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 12/31/2016 SANTIAGO GARZA Cristin Ot E05.00 THYROTOXICOSIS W DIFFUSE GOITER W/O THYR 12/31/2016 SANTIAGO GARZA Cristin Ot 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 01/03/2017 SANTIAGO GARZA N Ot 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 01/03/2017 SANTIAGO GARZA Cristin Ot E05.00 THYROTOXICOSIS W DIFFUSE GOITER W/O THYR 01/03/2017 SANTIAGO GARZA Cristin Ot E80.6 OTHER DISORDERS OF BILIRUBIN METABOLISM 01/03/2017 KAYLA, KELLEEMEENAKSHI Cristin Ot I25.10 ATHSCL HEART DISEASE OF [place] CORONARY 01/03/2017 KAYLASANTIAGO Ot 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 PULMONARY HYPERTENSION 01/03/2017 SANTIAGO GARZA Cristin Ot 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 01/03/2017 SANTIAGO GARZA Cristin Ot Z82.49 FAMILY HX OF ISCHEM HEART DIS AND OTH DI 01/07/2017 LATRICE EUBANKS Ot 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 01/07/2017 LATRICE EUBANKS Ot I25.10 ATHSCL HEART DISEASE OF [place] CORONARY 01/07/2017 LATRICE EUBANKS Ot R00.2 PALPITATIONS 01/07/2017 LATRICE EUBANKS Ot R06.02 SHORTNESS OF BREATH 02/07/2017 LATRICE EUBANKS Ot 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 02/07/2017 LATRICE EUBANKS Ot I25.10 ATHSCL HEART DISEASE OF [place] CORONARY 02/07/2017 LATRICE EUBANKS Ot R00.2 PALPITATIONS [...] EUBANKS Ot I25.10 ATHSCL HEART DISEASE OF [place] CORONARY 03/01/2017 LATRICE EUBANKS Ot R00.2 PALPITATIONS 03/01/2017 LATRICE EUBANKS Ot R06.02 SHORTNESS OF BREATH 03/03/2017 SANTIAGO GARZA Ot 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 03/03/2017 SANTIAGO GARZA Ot E05.00 THYROTOXICOSIS W DIFFUSE GOITER W/O THYR 03/03/2017 SANTIAGO GARZA Ot E80.6 OTHER DISORDERS OF BILIRUBIN METABOLISM 03/03/2017 SANTIAGO GARZA Ot I25.10 ATHSCL HEART DISEASE OF [place] CORONARY 03/03/2017 SANTIAGO GARZA Ot 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 PULMONARY HYPERTENSION 03/03/2017 SANTIAGO GARZA Ot 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 03/03/2017 SANTIAGO GARZA Ot Z82.49 FAMILY HX OF ISCHEM HEART DIS AND OTH DI 03/04/2017 SANTIAGO GARZA Ot 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 03/04/2017 SANTIAGO GARZA Ot E05.00 THYROTOXICOSIS W DIFFUSE GOITER W/O THYR 03/04/2017 SANTIAGO GARZA Ot E80.6 OTHER DISORDERS OF BILIRUBIN METABOLISM 03/04/2017 SANTIAGO GARZA Ot I25.10 ATHSCL HEART DISEASE OF [place] CORONARY 03/04/2017 SANTIAGO GARZA Ot 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 PULMONARY HYPERTENSION 03/04/2017 KAYLA SANTIAGO N Ot 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 03/04/2017 KAYLA SANTIAGO N Ot Z82.49 FAMILY HX OF ISCHEM HEART DIS AND OTH DI 03/08/2017 MUHAMMADMARTIN Lawrence S VARNISH REMOVER Ot 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 03/08/2017 MUHAMMADMARTIN Lawrence VARNISH REMOVER Ot I26.99 OTHER PULMONARY EMBOLISM WITHOUT ACUTE C 03/08/2017 MARTIN MUHAMMAD S VARNISH REMOVER Ot K76.89 OTHER SPECIFIED DISEASES OF LIVER 03/08/2017 MUHAMMADMARTIN Lawrence S VARNISH REMOVER Ot R91.8 OTHER NONSPECIFIC ABNORMAL FINDING OF [place]IS[place] 03/10/2017 KAYLA, SANTIAGO N Ot 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 03/10/2017 KAYLA SANTIAGO N Ot E05.00 THYROTOXICOSIS W DIFFUSE GOITER W/O THYR 03/10/2017 KAYLASANTIAGO N Ot E80.6 OTHER DISORDERS OF BILIRUBIN METABOLISM 03/10/2017 KAYLASANTIAGO N Ot I25.10 ATHSCL HEART DISEASE OF [place] CORONARY 03/10/2017 KAYLA SANTIAGO N Ot 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 PULMONARY HYPERTENSION 03/10/2017 KAYLA, SANTIAGO N Ot 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 03/10/2017 KAYLA SANTIAGO N Ot Z82.49 FAMILY HX OF ISCHEM HEART DIS AND OTH DI 03/10/2017 KAYLASANTIAGO N Ot 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 03/10/2017 KAYLA, SANTIAGO N Ot E05.00 THYROTOXICOSIS W DIFFUSE GOITER W/O THYR 03/10/2017 KAYLASANTIAGO N Ot E80.6 OTHER DISORDERS OF BILIRUBIN METABOLISM 03/10/2017 KAYLASANTIAGO N Ot I25.10 ATHSCL HEART DISEASE OF [place] CORONARY 03/10/2017 KAYLASANTIAGO N Ot 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 PULMONARY HYPERTENSION 03/10/2017 KAYLASANTIAGO N Ot 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 03/10/2017 KAYLASANTIAGO N Ot Z82.49 FAMILY HX OF ISCHEM HEART DIS AND OTH DI 03/14/2017 KAYLASANTIAGO N Ot 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 03/14/2017 KAYLA KELLEEMEENAKSHI Cristin Ot E05.00 THYROTOXICOSIS W DIFFUSE GOITER W/O THYR 03/14/2017 KAYLA, SNATIAGO N Ot E80.6 OTHER DISORDERS OF BILIRUBIN METABOLISM 03/14/2017 KAYLA SANTIAGO Amaral Ot I25.10 ATHSCL HEART DISEASE OF [place] CORONARY 03/14/2017 KAYLA, SANTIAGO N Ot 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 PULMONARY HYPERTENSION 03/14/2017 KAYLA, SANTIAGO Amaral Ot 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 03/14/2017 KAYLA, SANTIAGO N Ot Z82.49 FAMILY HX OF ISCHEM HEART DIS AND OTH DI 03/18/2017 MARTIN MUHAMMAD VARNISH REMOVER Ot 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 03/18/2017 MARTIN MUHAMMAD VARNISH REMOVER Ot I26.99 OTHER PULMONARY EMBOLISM WITHOUT ACUTE C 03/18/2017 MARTIN MUHAMMAD VARNISH REMOVER Ot K76.89 OTHER SPECIFIED DISEASES OF LIVER 03/18/2017 MARTIN MUHAMMAD VARNISH REMOVER Ot R91.8 OTHER NONSPECIFIC ABNORMAL FINDING OF [place] 03/26/2017 SANTIAGO GARZA Ot 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 03/26/2017 KAYLA, SANTIAGO Amaral Ot E05.00 THYROTOXICOSIS W DIFFUSE GOITER W/O THYR 03/26/2017 KAYLA, SANTIAGO Amaral Ot E80.6 OTHER DISORDERS OF BILIRUBIN METABOLISM 03/26/2017 KAYLA, SANTIAGO Amaral Ot I25.10 ATHSCL HEART DISEASE OF [place] CORONARY 03/26/2017 KAYLA, SANTIAGO Amaral Ot 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 PULMONARY HYPERTENSION 03/26/2017 KAYLA, SANTIAGO Amaral Ot 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 03/26/2017 SANTIAGO GARZA Ot Z82.49 FAMILY HX OF ISCHEM HEART DIS AND OTH DI 04/11/2017 KAYLA SANTIAGO N Ot 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 04/11/2017 KAYLA, SANTIAGO N Ot E05.00 THYROTOXICOSIS W DIFFUSE GOITER W/O THYR 04/11/2017 SANTIAGO GARZA N Ot E80.6 OTHER DISORDERS OF BILIRUBIN METABOLISM 04/11/2017 SANTIAGO GARZA Cristin Ot I25.10 ATHSCL HEART DISEASE OF [place] CORONARY 04/11/2017 SANTIAGO GARZA N Ot I27.20 PULMONARY HYPERTENSION, UNSPECIFIED 04/11/2017 SANTIAGO GARZA N Ot Z79.899 OTHER CUSTODIAL (CURRENT) DRUG THERAPY 04/11/2017 SANTIAGO GARZA N Ot Z82.49 FAMILY HX OF ISCHEM HEART DIS AND OTH DI 05/11/2017 SANTIAGO GARZA Cristin Ot 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 05/11/2017 SANTIAGO GARZA N Ot E05.00 THYROTOXICOSIS W DIFFUSE GOITER W/O THYR 05/11/2017 SANTIAGO GARZA Cristin Ot E80.6 OTHER DISORDERS OF BILIRUBIN METABOLISM 05/11/2017 SANTIAGO GARZA N Ot I25.10 ATHSCL HEART DISEASE OF [place] CORONARY 05/11/2017 SANTIAGO GARZA N Ot I27.20 PULMONARY HYPERTENSION, UNSPECIFIED 05/11/2017 SANTIAGO GARZA N Ot Z79.899 OTHER CUSTODIAL (CURRENT) DRUG THERAPY 05/11/2017 SANTIAGO GARZA N Ot Z82.49 FAMILY HX OF ISCHEM HEART DIS AND OTH DI 05/12/2017 CHRISTOPHER OLIVA MD Ot 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 05/12/2017 CHRISTOPHER OLIVA MD Ot E05.00 THYROTOXICOSIS W DIFFUSE GOITER W/O THYR 05/12/2017 CHRISTOPHER OLIVA MD Ot E80.6 OTHER DISORDERS OF BILIRUBIN METABOLISM 05/12/2017 CHRISTOPHER OLIVA MD Ot I25.10 ATHSCL HEART DISEASE OF [place] CORONARY 05/12/2017 CHRISTOPHER OLIVA MD Ot I27.20 PULMONARY HYPERTENSION, UNSPECIFIED 05/12/2017 CHRISTOPHER OLIVA MD Ot 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 05/12/2017 CHRISTOPHER OLIVA MD Ot Z82.49 FAMILY HX OF ISCHEM HEART DIS AND OTH DI 06/10/2017 MEHUL SMITH, MANUEL Amaral Ot V76.12 OTH SCREEN MAMMO-MALIGN NEOPLASM OF HEIDI 06/10/2017 CHANEL TOMLINSON MD Ot 242.00 TOX [...] MAL YENY BRONCH/LUNG NOS 06/10/2017 MARTIN MUHAMMAD VARNISH REMOVER Ot 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 06/10/2017 MARTIN MUHAMMAD VARNISH REMOVER Ot 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 06/10/2017 MARTIN MUHAMMAD VARNISH REMOVER Ot 242.00 TOX DIF GOITER NO CRISIS 06/10/2017 MARTIN MUHAMMAD VARNISH REMOVER Ot V58.69 OT MED,LT,CURRENT USE 06/10/2017 MARTIN MUHAMMAD VARNISH REMOVER Ot 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 06/10/2017 MARTIN MUHAMMAD VARNISH REMOVER Ot E05.00 THYROTOXICOSIS W DIFFUSE GOITER W/O THYR 06/10/2017 MARTIN MUHAMMAD Ot Z79.899 OTHER CUSTODIAL (CURRENT) DRUG THERAPY 06/10/2017 RAFAEL BARTLETT RADHA L Ot E05.00 THYROTOXICOSIS W DIFFUSE GOITER W/O THYR 06/10/2017 RAFAEL BARTLETT, RADHA L Ot E05.00 THYROTOXICOSIS W DIFFUSE GOITER W/O THYR 06/10/2017 RAFAEL BARTLETTJOIERADHA L Ot R25.2 CRAMP AND SPASM 06/10/2017 KAYLASANTIAGO SOLARES Cristin Ot 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 06/10/2017 MARTIN MUHAMMAD Ot 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 06/10/2017 MARTIN MUHAMMAD Ot E05.00 THYROTOXICOSIS W DIFFUSE GOITER W/O THYR 06/10/2017 MARTIN MUHAMMAD Ot L27.0 GEN SKIN ERUPTION DUE TO DRUGS AND MEDS 06/10/2017 MARTIN MUHAMMAD Ot T45.1X5A ADVERSE EFFECT OF ANTINEOPLASTIC AND IMM 06/10/2017 MARTIN MUHAMMAD Ot Z79.899 OTHER CUSTODIAL (CURRENT) DRUG THERAPY 06/10/2017 RAFAEL BARTLETTJOIERADHA L Ot E05.00 THYROTOXICOSIS W DIFFUSE GOITER W/O THYR 06/10/2017 HALL DOJOIERADHA L Ot I10 ESSENTIAL (PRIMARY) HYPERTENSION 06/10/2017 Ot 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 06/10/2017 RAFAEL BARTLETTJOIERADHA L Ot E05.00 THYROTOXICOSIS W DIFFUSE GOITER W/O THYR 06/10/2017 MARTIN MUHAMMADP Ot C34.81 MALIGNANT NEOPLASM OF [...] ERUPTION 06/10/2017 MARTIN MUHAMMAD Ot 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 06/10/2017 MARTIN MUHAMMAD Ot 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 06/10/2017 MARTIN MUHAMMADP Ot E05.00 THYROTOXICOSIS W DIFFUSE GOITER W/O THYR 06/10/2017 MARTIN MUHAMMAD Ot 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 06/10/2017 DAVI SMITH, CHANEL Landin Ot E05.00 THYROTOXICOSIS W DIFFUSE GOITER W/O THYR 06/10/2017 RAFAEL BARTLETT, RADHA L Ot E05.00 THYROTOXICOSIS W DIFFUSE GOITER W/O THYR 06/10/2017 RAFAEL BARTLETT, RADHA L Ot M54.2 CERVICALGIA 06/10/2017 RAFAEL [...] MUHAMMAD Ot I25.10 ATHSCL HEART DISEASE OF [place] CORONARY 06/10/2017 MARTIN MUHAMMAD S VARNISH REMOVER Ot 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 PULMONARY HYPERTENSION 06/10/2017 MARTIN MUHAMMAD Howard VARNISH REMOVER Ot 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 06/10/2017 MARTIN MUHAMMAD Howard VARNISH REMOVER Ot 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 06/10/2017 ANSLEY MUHAMMADHEATHER Lawrence VARNISH REMOVER Ot R52 PAIN, UNSPECIFIED 06/10/2017 SANTIAGO GARZA Ot 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 06/10/2017 SANTIAGO GARZA Ot Z51.11 ENCOUNTER FOR ANTINEOPLASTIC CHEMOTHERAP 06/10/2017 LATRICE EUBANKS Ot 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 06/10/2017 LATRICE EUBANKS Ot I25.10 ATHSCL HEART DISEASE OF [place] CORONARY 06/10/2017 LATRICE EUBANKS Ot R00.2 PALPITATIONS 06/10/2017 LATRICE EUBANKS Ot R06.02 SHORTNESS OF BREATH 06/10/2017 ANSLEY MUHAMMADHEATHER Howard VARNISH REMOVER Ot 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 06/10/2017 MARTIN MUHAMMAD VARNISH REMOVER Ot I26.99 OTHER PULMONARY EMBOLISM WITHOUT ACUTE C 06/10/2017 MARTIN MUHAMMAD VARNISH REMOVER Ot K76.89 OTHER SPECIFIED DISEASES OF LIVER 06/10/2017 ANSLEY MUHAMMADHEATHER Howard VARNISH REMOVER Ot R91.8 OTHER NONSPECIFIC ABNORMAL FINDING OF [place] 06/10/2017 CHRISTOPHER OLIVA MD Ot 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 06/10/2017 CHRISTOPHER OLIVA MD Ot E05.00 THYROTOXICOSIS W DIFFUSE GOITER W/O THYR 06/10/2017 CHRISTOPHER OLIVA MD Ot E80.6 OTHER DISORDERS OF BILIRUBIN METABOLISM 06/10/2017 CHRISTOPHER OLIVA MD Ot I25.10 ATHSCL HEART DISEASE OF [place] CORONARY 06/10/2017 CHRISTOPHER OLIVA MD Ot I27.20 PULMONARY HYPERTENSION, UNSPECIFIED 06/10/2017 CHRISTOPHER OLIVA MD Ot 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 06/10/2017 CHRISTOPHER OLIVA MD [...] MD Ot I25.10 ATHSCL HEART DISEASE OF [place] CORONARY 06/10/2017 CHRISTOPHER OLIVA MD Ot I27.20 PULMONARY HYPERTENSION, UNSPECIFIED 06/10/2017 CHRISTOPHER OLIVA MD Ot Z79.899 OTHER CUSTODIAL (CURRENT) DRUG THERAPY 06/10/2017 CHRISTOPHER OLIVA MD Ot Z82.49 FAMILY HX OF ISCHEM HEART DIS AND OTH DI 06/10/2017 KAYLASANTIAGO SOLARES N Ot 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 06/10/2017 KAYLASANTIAGO SOLARES N Ot E05.00 THYROTOXICOSIS W DIFFUSE GOITER W/O THYR 06/10/2017 KAYLASANTIAGO SOLARES N Ot E80.6 OTHER DISORDERS OF BILIRUBIN METABOLISM 06/10/2017 KAYLA, BOBAN N Ot I25.10 ATHSCL HEART DISEASE OF [place] CORONARY 06/10/2017 KAYLASANTIAGO SOLARES N Ot I27.20 PULMONARY HYPERTENSION, UNSPECIFIED 06/10/2017 KAYLASANTIAGO SOLARES N Ot 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 06/10/2017 KAYLAKELLEE SOLARESAN N Ot Z82.49 FAMILY HX OF ISCHEM HEART DIS AND OTH DI 06/14/2017 RADHA HALL DO Ot E03.2 HYPOTHYROIDISM DUE TO MEDS AND OTH EXOGE 06/14/2017 KAYLA, BOBAN N Ot 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 06/14/2017 KAYLAKELLEE SOLARESAN N Ot E05.00 THYROTOXICOSIS W DIFFUSE GOITER W/O THYR 06/14/2017 KAYLA, BOBAN N Ot E80.6 OTHER DISORDERS OF BILIRUBIN METABOLISM 06/14/2017 KAYLA BOBAN N Ot I25.10 ATHSCL HEART DISEASE OF [place] CORONARY 06/14/2017 KAYLA, BOBAN N Ot I27.20 PULMONARY HYPERTENSION, UNSPECIFIED 06/14/2017 KAYLA, BOBAN N Ot 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 06/14/2017 KAYLA, SANTIAGO N Ot Z82.49 FAMILY HX OF ISCHEM HEART DIS AND OTH DI 07/07/2017 KAYLASANTIAGO N Ot 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 07/07/2017 KAYLASANTIAGO N Ot E05.00 THYROTOXICOSIS W DIFFUSE GOITER W/O THYR 07/07/2017 KAYLASANTIAGO N Ot E80.6 OTHER DISORDERS OF BILIRUBIN METABOLISM 07/07/2017 KAYLASANTIAGO N Ot I25.10 ATHSCL HEART DISEASE OF [place] CORONARY 07/07/2017 KAYLASANTIAGO N Ot I27.20 PULMONARY HYPERTENSION, UNSPECIFIED 07/07/2017 KAYLASANTIAGO N Ot 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 07/07/2017 KAYLASANTIAGO N Ot Z82.49 FAMILY HX OF ISCHEM HEART DIS AND OTH DI 07/08/2017 KAYLASANTIAGO N Ot 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 OF [...] NEOPLASM OF OVRLP SITES OF RIG 08/05/2017 KAYLASANTIAGO N Ot E05.00 THYROTOXICOSIS W DIFFUSE GOITER W/O THYR 08/05/2017 KAYLASANTIAGO N Ot E80.6 OTHER DISORDERS OF BILIRUBIN METABOLISM 08/05/2017 KAYLASANTIAGO N Ot I25.10 ATHSCL HEART DISEASE OF [place] CORONARY 08/05/2017 KAYLASANTIAGO SOLARES N Ot I27.20 PULMONARY HYPERTENSION, UNSPECIFIED 08/05/2017 KAYLASANTIAGO SOLARES N Ot 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 08/05/2017 KAYLASANTIAGO SOLARES N Ot Z82.49 FAMILY HX OF ISCHEM HEART DIS AND OTH DI 08/05/2017 MEHUL SMITH, MANUEL Amaral Ot V76.12 OTH [...] MAL YENY BRONCH/LUNG NOS 08/05/2017 MARTIN MUHAMMAD VARNISH REMOVER Ot 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 08/05/2017 MARTIN MUHAMMAD VARNISH REMOVER Ot 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2 CRAMP AND SPASM 08/05/2017 SANTIAGO GARZA Ot 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 08/05/2017 MARTIN MUHAMMAD Ot 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 08/05/2017 MARTIN MUHAMMAD Ot E05.00 THYROTOXICOSIS W DIFFUSE GOITER W/O THYR 08/05/2017 MARTIN MUHAMMAD Ot L27.0 GEN SKIN ERUPTION DUE TO DRUGS AND MEDS 08/05/2017 MARTIN MUHAMMAD Ot T45.1X5A ADVERSE EFFECT OF ANTINEOPLASTIC AND IMM 08/05/2017 MARTIN MUHAMMAD Ot Z79.899 OTHER CUSTODIAL (CURRENT) DRUG THERAPY 08/05/2017 RAFAEL BARTLETT, RADHA L Ot E05.00 THYROTOXICOSIS W DIFFUSE GOITER W/O THYR 08/05/2017 HALL DO, RADHA L Ot I10 ESSENTIAL (PRIMARY) HYPERTENSION [...] SITES OF RIG 08/05/2017 MARTIN MUHAMMAD Ot C79.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 08/05/2017 MARTIN MUHAMMAD Ot E05.00 THYROTOXICOSIS W DIFFUSE GOITER W/O THYR 08/05/2017 MARTIN MUHAMMAD Ot R21 RASH AND OTHER NONSPECIFIC SKIN ERUPTION 08/05/2017 MARTIN MUHAMMAD Ot 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 08/05/2017 MARTIN MUHAMMAD Ot 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 08/05/2017 MARTIN MUHAMMAD Ot E05.00 THYROTOXICOSIS W DIFFUSE GOITER W/O THYR 08/05/2017 MARTIN MUHAMMAD Ot 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 08/05/2017 DAVI SMITH, CHANEL Landin Ot E05.00 THYROTOXICOSIS W DIFFUSE GOITER W/O THYR 08/05/2017 HALL DO, RADHA L Ot E05.00 THYROTOXICOSIS W DIFFUSE GOITER W/O THYR 08/05/2017 HALL DO, RADHA L Ot M54.2 CERVICALGIA 08/05/2017 HALL DO, RADHA L Ot E05.00 [...] THYROTOXICOSIS W DIFFUSE GOITER W/O THYR 08/05/2017 MUHAMMAD, HILAH S VARNISH REMOVER Ot 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 08/05/2017 ANSLEY MUHAMMADHEATHER Lawrence VARNISH REMOVER Ot I25.10 ATHSCL HEART DISEASE OF [place] CORONARY 08/05/2017 ANSLEY MUHAMMADHEATHER Lawrence VARNISH REMOVER Ot 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 PULMONARY HYPERTENSION 08/05/2017 MUHAMMAD MARTIN Lawrence VARNISH REMOVER Ot Z79.899 OTHER CUSTODIAL (CURRENT) DRUG THERAPY 08/05/2017 MARTIN MUHAMMAD VARNISH REMOVER Ot 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 08/05/2017 MARTIN MUHAMMADP Ot R52 PAIN, UNSPECIFIED 08/05/2017 SANTIAGO GARZA Ot 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 08/05/2017 SANTIAGO GARZA Ot Z51.11 ENCOUNTER FOR ANTINEOPLASTIC CHEMOTHERAP 08/05/2017 LATRICE EUBANKS Ot 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 08/05/2017 LATRICE EUBANKS Ot I25.10 ATHSCL HEART DISEASE OF [place] CORONARY 08/05/2017 LATRICE EUBANKS Ot R00.2 PALPITATIONS 08/05/2017 LTARICE EUBANKS Ot R06.02 SHORTNESS OF BREATH 08/05/2017 MARTIN MUHAMMADP Ot 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 08/05/2017 JB MARTIN Lawrence VARNISH REMOVER Ot I26.99 OTHER PULMONARY EMBOLISM WITHOUT ACUTE C 08/05/2017 ANSLEY MUHAMMADHEATHER Howard VARNISH REMOVER Ot K76.89 OTHER SPECIFIED DISEASES OF LIVER 08/05/2017 ANSLEY MUHAMMADHEATHER Lawrence VARNISH REMOVER Ot R91.8 OTHER NONSPECIFIC ABNORMAL FINDING OF [place] 08/05/2017 RADHA HALL DO Ot E03.2 HYPOTHYROIDISM DUE TO MEDS AND OTH EXOGE 08/05/2017 SANTIAGO GARZA Ot 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 08/05/2017 SANTIAGO GARZA Ot E05.00 THYROTOXICOSIS W DIFFUSE GOITER W/O THYR 08/05/2017 SANTIAGO GARZA Ot E80.6 OTHER DISORDERS OF BILIRUBIN METABOLISM 08/05/2017 SANTIAGO GARZA Ot I25.10 ATHSCL HEART DISEASE OF [place] CORONARY 08/05/2017 SANTIAGO GARZA Cristin Ot I27.20 PULMONARY HYPERTENSION, UNSPECIFIED 08/05/2017 SANTIAGO GARZA Cristin Ot Z79.899 OTHER CUSTODIAL (CURRENT) DRUG THERAPY 08/05/2017 SANTIAGO GARZA Cristin Ot Z82.49 FAMILY HX OF ISCHEM HEART DIS AND OTH DI 08/05/2017 SANTIAGO GARZA Cristin Ot 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 OF [facility] PART OF [facility] 08/31/2017 MANUEL CARVER MD Ot V76.12 OTH SCREEN [...] DO Ot 786.05 SHORTNESS OF BREATH 08/31/2017 MEMO BARTLETT KAYLIE Miranda Ot 786.6 CHEST SWELLING/MASS/LUMP 08/31/2017 SANTIAGO GARZA Ot 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 08/31/2017 MARTIN MUHAMMADP Ot 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 08/31/2017 MARTIN MUHAMMADP Ot 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 08/31/2017 MARTIN MUHAMMAD Ot 242.00 TOX DIF GOITER NO CRISIS 08/31/2017 MARTIN MUHAMMAD Ot V58.69 OT MED,LT,CURRENT USE 08/31/2017 MARTIN MUHAMMADP Ot 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 08/31/2017 MARTIN MUHAMMAD Ot E05.00 THYROTOXICOSIS W DIFFUSE GOITER W/O THYR 08/31/2017 MARTIN MUHAMMAD Ot Z79.899 OTHER CUSTODIAL (CURRENT) DRUG THERAPY 08/31/2017 RADHA HALL DO [...] IMM 08/31/2017 MARTIN MUHAMMADP Ot Z79.899 OTHER CUSTODIAL (CURRENT) DRUG THERAPY 08/31/2017 RADHA HALL DO Ot E05.00 THYROTOXICOSIS W DIFFUSE GOITER W/O THYR 08/31/2017 HALL DO, RADHA L Ot I10 ESSENTIAL (PRIMARY) HYPERTENSION [...] SITES OF RIG 08/31/2017 MARTIN MUHAMMAD Ot C79.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 08/31/2017 MARTIN MUHAMMAD Ot E05.00 THYROTOXICOSIS W DIFFUSE GOITER W/O THYR 08/31/2017 MARTIN MUHAMMAD Ot R21 RASH AND OTHER NONSPECIFIC SKIN ERUPTION 08/31/2017 MARTIN MUHAMMAD Ot Z79.899 OTHER CUSTODIAL (CURRENT) DRUG THERAPY 08/31/2017 MARTIN MUHAMMAD Ot 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 08/31/2017 MARTIN MUHAMMAD Ot E05.00 THYROTOXICOSIS W DIFFUSE GOITER W/O THYR 08/31/2017 MARTIN MUHAMMADP Ot 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 08/31/2017 DAVI SMITH, CHANEL Landin Ot E05.00 THYROTOXICOSIS W DIFFUSE GOITER W/O THYR 08/31/2017 HALL DO, RADHA L Ot E05.00 THYROTOXICOSIS W DIFFUSE GOITER W/O THYR 08/31/2017 HALL DO, RADHA L Ot M54.2 CERVICALGIA 08/31/2017 RAFAEL BARTLETT, RADHA L Ot E05.00 THYROTOXICOSIS W DIFFUSE GOITER W/O THYR 08/31/2017 HALL DO, RADHA L Ot E05.00 THYROTOXICOSIS W DIFFUSE GOITER W/O THYR 08/31/2017 MARTIN MUHAMMAD VARNISH REMOVER Ot C34.81 MALIGNANT NEOPLASM OF OVRLP SITES [...] DIFFUSE GOITER W/O THYR 08/31/2017 MARTIN MUHAMMAD VARNISH REMOVER Ot 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 08/31/2017 MARTIN MUHAMMADP Ot I25.10 ATHSCL HEART DISEASE OF [place] CORONARY 08/31/2017 MARTIN MUHAMMADP Ot 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 PULMONARY HYPERTENSION 08/31/2017 MARTIN MUHAMMADP Ot Z79.899 OTHER CUSTODIAL (CURRENT) DRUG THERAPY 08/31/2017 MARTIN MUHAMMADP Ot 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 08/31/2017 MARTIN MUHAMMAD Ot R52 PAIN, UNSPECIFIED 08/31/2017 SANTIAGO GARZA Ot 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 08/31/2017 SANTIAGO AGRZA Ot Z51.11 ENCOUNTER FOR ANTINEOPLASTIC CHEMOTHERAP 08/31/2017 LATRICE EUBANKS Ot 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 08/31/2017 KAYLASANTIAGO N Ot E05.00 THYROTOXICOSIS W DIFFUSE GOITER W/O THYR 08/31/2017 KAYLASANTIAGO N Ot E80.6 OTHER DISORDERS OF BILIRUBIN METABOLISM 08/31/2017 KAYLASANTIAGO N Ot I25.10 ATHSCL HEART DISEASE OF [place] CORONARY 08/31/2017 KAYLASANTIAGO N Ot I27.20 PULMONARY HYPERTENSION, UNSPECIFIED 08/31/2017 KAYLASANTIAGO N Ot Z79.899 OTHER CUSTODIAL (CURRENT) DRUG THERAPY 08/31/2017 KAYLASANTIAGO N Ot Z82.49 FAMILY HX OF ISCHEM HEART DIS AND OTH DI 08/31/2017 KAYLASANTIAGO SOLARES N Ot 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 09/01/2017 MEHUL SMITH, MANUEL Amaral Ot R31.9 HEMATURIA, UNSPECIFIED 09/11/2017 KAYLASANTIAGO N Ot 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 09/11/2017 KAYLASANTIAGO N Ot E05.00 THYROTOXICOSIS W DIFFUSE GOITER W/O THYR 09/11/2017 KAYLASANTIAGO N Ot E80.6 OTHER DISORDERS OF BILIRUBIN METABOLISM 09/11/2017 KAYLASANTIAGO N Ot I25.10 ATHSCL HEART DISEASE OF [place] CORONARY 09/11/2017 KAYLASANTIAGO N Ot I27.20 PULMONARY HYPERTENSION, UNSPECIFIED 09/11/2017 KAYLAKELLEEAN N Ot 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 09/11/2017 KAYLASANTIAGO N Ot Z82.49 FAMILY HX OF ISCHEM HEART DIS AND OTH DI 09/12/2017 KAYLA BOBAN N Ot 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 09/12/2017 KAYLA BOBMEENAKSHI N Ot E05.00 THYROTOXICOSIS W DIFFUSE GOITER W/O THYR 09/12/2017 KAYLA, BOBAN N Ot E80.6 OTHER DISORDERS OF BILIRUBIN METABOLISM 09/12/2017 KAYLAKELLEEAN N Ot I25.10 ATHSCL HEART DISEASE OF [place] CORONARY 09/12/2017 KAYLA BOBAN N Ot I27.20 PULMONARY HYPERTENSION, UNSPECIFIED 09/12/2017 KAYLA, BOBAN N Ot Z79.899 OTHER CUSTODIAL (CURRENT) DRUG THERAPY 09/12/2017 KAYLASANTIAGO N Ot Z82.49 FAMILY HX OF ISCHEM HEART DIS AND OTH DI 09/12/2017 KAYLA, BOBAN N Ot 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 09/12/2017 KAYLA, BOBAN N Ot E05.00 THYROTOXICOSIS W DIFFUSE GOITER W/O THYR 09/12/2017 KAYLA, BOBMEENAKSHI N Ot E80.6 OTHER DISORDERS OF BILIRUBIN METABOLISM 09/12/2017 KAYLA BOBAN N Ot I25.10 ATHSCL HEART DISEASE OF [place] CORONARY 09/12/2017 KAYLA, KELLEEMEENAKSHI N Ot I27.20 PULMONARY HYPERTENSION, UNSPECIFIED 09/12/2017 KAYLA BOBAN N Ot 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 09/12/2017 KAYLA BOBAN N Ot Z82.49 FAMILY HX OF ISCHEM HEART DIS AND OTH DI 09/12/2017 KAYLA, BOBMEENAKSHI N Ot 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 NEOPLASM OF UPPER LOBE, RIGHT 09/12/2017 KAYLA BOBAN N Ot E05.00 THYROTOXICOSIS W DIFFUSE GOITER W/O THYR 09/12/2017 KAYLA KELLEEMEENAKSHI N Ot 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 09/12/2017 KAYLA SANTIAGO N Ot 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 09/22/2017 MEHUL SMITH, MANUEL N Ot R31.9 HEMATURIA, UNSPECIFIED 09/22/2017 KAYLA, BOBAN N Ot 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 09/28/2017 KAYLA BOBAN N Ot 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 NEOPLASM OF UPPER LOBE, RIGHT 09/28/2017 KAYLA KELLEEAN N Ot E05.00 THYROTOXICOSIS W DIFFUSE GOITER W/O THYR 09/28/2017 KAYLA, BOBAN N Ot Z79.899 OTHER CUSTODIAL (CURRENT) DRUG THERAPY 10/05/2017 MEHUL SMITH, MANUEL Amaral Ot V76.12 OTH SCREEN MAMMO-MALIGN NEOPLASM OF [place]ID[place] 10/05/2017 CHANEL TOMLINSON MD Ot 242.00 TOX DIF GOITER NO CRISIS 10/05/2017 CHANEL TOMLINSON MD Ot 401.9 HYPERTENSION NOS 10/05/2017 CHANEL TOMLINSON MD Ot 729.5 PAIN IN LIMB 10/05/2017 CHANEL TOMLINSON MD Ot 785.1 PALPITATIONS 10/05/2017 CHANEL TOMLINSON MD Ot 786.05 SHORTNESS OF BREATH 10/05/2017 CHANEL TOMLINSON MD Ot 786.09 RESPIRATORY ABNORM NEC 10/05/2017 CHANEL TOMLINSON MD Ot V12.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 10/05/2017 CHANEL TOMLINSON MD Ot 242.00 TOX DIF GOITER NO CRISIS 10/05/2017 CHANEL TOMLINSON MD Ot 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 UNSP 10/05/2017 CHANEL TOMLINSON MD Ot 785.1 PALPITATIONS 10/05/2017 CHANEL TOMLINSON MD Ot 786.05 SHORTNESS OF BREATH 10/05/2017 KAYLIE HAMPTON DO Ot 416.8 CHR PULMON HEART DIS NEC 10/05/2017 KAYLIE HAMPTON DO Ot 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 UNSP 10/05/2017 KAYLIE HAMPTON DO Ot 786.05 SHORTNESS OF BREATH 10/05/2017 KAYLIE HAMPTON DO Ot 793.19 OTHER NONSPECIFIC ABNORMAL FINDING OF [place] 10/05/2017 KAYLIE HAMPTON DO Ot 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 10/05/2017 KAYLIE HAMPTON DO Ot 786.05 SHORTNESS OF BREATH 10/05/2017 KAYLIE HAMPTON DO Ot 786.6 CHEST SWELLING/MASS/LUMP 10/05/2017 SANTIAGO GARZA Ot 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 10/05/2017 MARTIN MUHAMMAD VARNISH REMOVER Ot 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 10/05/2017 MARTIN MUHAMMAD VARNISH REMOVER Ot 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 10/05/2017 MARTIN MUHAMMAD VARNISH REMOVER Ot 242.00 TOX DIF GOITER NO CRISIS 10/05/2017 MARTIN MUHAMMAD Ot V58.69 OTH MED,LT,CURRENT USE 10/05/2017 MARTIN MUHAMMAD Ot 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 10/05/2017 MARTIN MUHAMMADP Ot E05.00 THYROTOXICOSIS W DIFFUSE GOITER W/O THYR 10/05/2017 MARTIN MUHAMMADP Ot Z79.899 OTHER CUSTODIAL (CURRENT) DRUG THERAPY 10/05/2017 RAFAEL BARTLETT, RADHA L Ot E05.00 THYROTOXICOSIS W DIFFUSE GOITER W/O THYR 10/05/2017 HALL DO, RADHA L Ot E05.00 THYROTOXICOSIS W DIFFUSE GOITER W/O THYR 10/05/2017 RAFAEL BARTLETT, RADHA L Ot R25.2 CRAMP AND SPASM 10/05/2017 SANTIAGO GARZA Ot 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 10/05/2017 MARTIN MUHAMMADP Ot 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 10/05/2017 MARTIN MUHAMMADP Ot E05.00 THYROTOXICOSIS W DIFFUSE GOITER W/O THYR 10/05/2017 MARTIN MUHAMMAD Ot L27.0 GEN SKIN ERUPTION DUE TO DRUGS AND MEDS 10/05/2017 MARTIN MUHAMMAD VARNISH REMOVER Ot T45.1X5A ADVERSE EFFECT OF ANTINEOPLASTIC AND IMM 10/05/2017 MARTIN MUHAMMADP Ot 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 10/05/2017 RAFAEL BARTLETT, RADHA L Ot E05.00 THYROTOXICOSIS W DIFFUSE GOITER W/O THYR 10/05/2017 RAFAEL BARTLETT, RADHA L Ot I10 ESSENTIAL (PRIMARY) HYPERTENSION 10/05/2017 Ot 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 10/05/2017 RAFAEL BARTLETT, RADHA L Ot E05.00 THYROTOXICOSIS W DIFFUSE GOITER W/O THYR 10/05/2017 MARTIN MUHAMMAD VARNISH REMOVER Ot 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 10/05/2017 RAFAEL BARTLETT, RADHA L Ot E05.00 THYROTOXICOSIS W DIFFUSE GOITER W/O THYR 10/05/2017 MARTIN MUHAMMADP Ot 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 10/05/2017 MARTIN MUHAMMADP Ot C79.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 10/05/2017 MARTIN MUHAMMAD Ot E05.00 THYROTOXICOSIS W DIFFUSE GOITER W/O THYR 10/05/2017 MARTIN MUHAMMAD Ot R21 RASH AND OTHER NONSPECIFIC SKIN ERUPTION 10/05/2017 MARTIN MUHAMMADP Ot 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 10/05/2017 MARTIN MUHAMMADP Ot 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 10/05/2017 MARTIN MUHAMMAD Ot E05.00 THYROTOXICOSIS W DIFFUSE GOITER W/O THYR 10/05/2017 MARTIN MUHAMMAD Ot Z79.899 OTHER CUSTODIAL (CURRENT) DRUG THERAPY 10/05/2017 DAVI SMITH, CHANEL Landin Ot E05.00 THYROTOXICOSIS W DIFFUSE GOITER W/O THYR 10/05/2017 RAFAEL BARTLETT, RADHA L Ot E05.00 THYROTOXICOSIS W DIFFUSE GOITER W/O THYR 10/05/2017 RAFAEL DO, RADHA L Ot M54.2 CERVICALGIA 10/05/2017 RAFAEL DO, RADHA L Ot E05.00 THYROTOXICOSIS W DIFFUSE GOITER W/O THYR 10/05/2017 RAFAEL BARTLETT, RADHA L Ot E05.00 THYROTOXICOSIS W DIFFUSE GOITER W/O THYR 10/05/2017 MARTIN MUHAMMADP Ot 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 10/05/2017 SANTIAGO GARZA Ot 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 10/05/2017 SANTIAGO GARZA Ot R42 DIZZINESS AND GIDDINESS 10/05/2017 Ot 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 10/05/2017 RAFAEL DO, RADHA L Ot E05.00 THYROTOXICOSIS W DIFFUSE GOITER W/O THYR 10/05/2017 RAFAEL BARTLETT, RADHA L Ot E05.00 THYROTOXICOSIS W DIFFUSE GOITER W/O THYR 10/05/2017 MARTIN MUHAMMAD VARNISH REMOVER Ot 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 10/05/2017 MARTIN MUHAMMAD VARNISH REMOVER Ot I25.10 ATHSCL HEART DISEASE OF [place] CORONARY 10/05/2017 MARTIN MUHAMMAD VARNISH REMOVER Ot 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 PULMONARY HYPERTENSION 10/05/2017 MARTIN MUHAMMADP Ot Z79.899 OTHER CUSTODIAL (CURRENT) DRUG THERAPY 10/05/2017 MARTIN MUHAMMAD VARNISH REMOVER Ot 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 10/05/2017 MARTIN MUHAMMAD Ot R52 PAIN, UNSPECIFIED 10/05/2017 SANTIAGO GARZA Ot 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 10/05/2017 SANTIAGO GARZA Ot Z51.11 ENCOUNTER FOR ANTINEOPLASTIC CHEMOTHERAP 10/05/2017 LATRICE EUBANKS Ot 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 10/05/2017 LATRICE EUBANKS Ot I25.10 ATHSCL HEART DISEASE OF [place] CORONARY 10/05/2017 LATRICE EUBANKS Ot R00.2 PALPITATIONS 10/05/2017 LATRICE EUBANKS Ot R06.02 SHORTNESS OF BREATH 10/05/2017 MARTIN MUHAMMAD Ot 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 10/05/2017 MARTIN MUHAMMADP Ot I26.99 OTHER PULMONARY EMBOLISM WITHOUT ACUTE C 10/05/2017 MARTIN MUHAMMAD VARNISH REMOVER Ot K76.89 OTHER SPECIFIED DISEASES OF LIVER 10/05/2017 MARTIN MUHAMMAD VARNISH REMOVER Ot R91.8 OTHER NONSPECIFIC ABNORMAL FINDING OF [place] 10/05/2017 RADHA HALL DO Ot E03.2 HYPOTHYROIDISM DUE TO MEDS AND OTH EXOGE 10/05/2017 SANTIAGO GARZA Ot 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 10/05/2017 MEHUL SMITH, MANUEL Amaral Ot R31.9 HEMATURIA, UNSPECIFIED 10/05/2017 SANTIAGO GARZA Ot 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 10/05/2017 KAYLASANTIAGO SOLARES Cristin Ot 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 NEOPLASM OF UPPER LOBE, RIGHT 10/05/2017 KAYLA, SANTIAGO Amaral Ot 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 10/05/2017 KAYLA, SANTIAGO Amaral Ot 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 10/06/2017 MEHUL SMITH, MANUEL Amaral Ot V76.12 OTH SCREEN MAMMO-MALIGN NEOPLASM OF [place]ID[place] 10/06/2017 CHANEL TOMLINSON MD Ot 242.00 TOX DIF GOITER NO CRISIS 10/06/2017 CHANEL TOMLINSON MD Ot 401.9 HYPERTENSION NOS 10/06/2017 CHANEL TOMLINSON MD Ot 729.5 PAIN IN LIMB 10/06/2017 CHANEL TOMLINSON MD Ot 785.1 PALPITATIONS 10/06/2017 CHANEL TOMLINSON MD Ot 786.05 SHORTNESS OF BREATH 10/06/2017 CHANEL TOMLINSON MD Ot 786.09 RESPIRATORY ABNORM NEC 10/06/2017 CHANEL TOMLINSON MD Ot V12.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 10/06/2017 CHANEL TOMLINSON MD Ot 242.00 TOX DIF GOITER NO CRISIS 10/06/2017 CHANEL TOMLINSON MD Ot 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 UNSP 10/06/2017 CHANEL TOMLINSON MD Ot 785.1 PALPITATIONS 10/06/2017 DAVI SMITH, CHANEL Landin Ot 786.05 SHORTNESS OF BREATH 10/06/2017 KAYLIE HAMPTON DO Ot 416.8 CHR PULMON HEART DIS NEC 10/06/2017 KAYLIE HAMPTON DO Ot 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 UNS 10/06/2017 KAYLIE HAMPTON DO Ot 786.05 SHORTNESS OF BREATH 10/06/2017 KAYLIE HAMPTON DO Ot 793.19 OTHER NONSPECIFIC ABNORMAL FINDING OF [place] 10/06/2017 KAYLIE HAMPTON DO Ot 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 10/06/2017 KAYLIE HAMPTON DO Ot 786.05 SHORTNESS OF BREATH 10/06/2017 KAYLIE HAMPTON DO Ot 786.6 CHEST SWELLING/MASS/LUMP 10/06/2017 SANTIAGO GARZA Ot 162.9 MAL YEYN BRONCH/LUNG NOS 10/06/2017 MARTIN MUHAMMAD VARNISH REMOVER Ot 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 10/06/2017 MARTIN MUHAMMAD VARNISH REMOVER Ot 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 10/06/2017 MARTIN MUHAMMAD VARNISH REMOVER Ot 242.00 TOX DIF GOITER NO CRISIS 10/06/2017 MARTIN MUHAMMAD VARNISH REMOVER Ot V58.69 OTH MED,LT,CURRENT USE 10/06/2017 MARTIN MUHAMMAD VARNISH REMOVER Ot 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 [facility] 10/06/2017 MARTIN MUHAMMAD VARNISH REMOVER Ot E05.00 THYROTOXICOSIS W DIFFUSE GOITER W/O THYR 10/06/2017 MARTIN MUHAMMAD VARNISH REMOVER Ot Z79.899 OTHER CUSTODIAL (CURRENT) DRUG THERAPY 10/06/2017 JOIE HALL DOISON L Ot E05.00 THYROTOXICOSIS W DIFFUSE GOITER W/O THYR 10/06/2017 JOIE HALL DOISON L Ot E05.00 THYROTOXICOSIS W DIFFUSE GOITER W/O THYR 10/06/2017 JOIE HALL DOISON L Ot R25.2 CRAMP AND SPASM 10/06/2017 SANTIAGO GARZA Ot 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 10/06/2017 MARTIN MUHAMMAD VARNISH REMOVER Ot 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 10/06/2017 MARTIN MUHAMMADP Ot E05.00 THYROTOXICOSIS W DIFFUSE GOITER W/O THYR 10/06/2017 MARTIN MUHAMMAD Ot L27.0 GEN SKIN ERUPTION DUE TO DRUGS AND MEDS 10/06/2017 MARTIN MUHAMMAD Ot T45.1X5A ADVERSE EFFECT OF ANTINEOPLASTIC AND IMM 10/06/2017 MARTIN MUHAMMADP Ot 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 10/06/2017 RAFAEL DO, RADHA L Ot E05.00 THYROTOXICOSIS W DIFFUSE GOITER W/O THYR 10/06/2017 RAFAEL DO, RADHA L Ot I10 ESSENTIAL (PRIMARY) HYPERTENSION 10/06/2017 Ot 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 10/06/2017 RAFAEL BARTLETT, RADHA L Ot E05.00 THYROTOXICOSIS W DIFFUSE GOITER W/O THYR 10/06/2017 MARTIN MUHAMMAD VARNISH REMOVER Ot 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 10/06/2017 RAFAEL BARTLETT, RADHA L Ot E05.00 THYROTOXICOSIS W DIFFUSE GOITER W/O THYR 10/06/2017 MARTIN MUHAMMAD Ot 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 10/06/2017 MARTIN MUHAMMADP Ot C79.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 10/06/2017 MARTIN MUHAMMADP Ot E05.00 THYROTOXICOSIS W DIFFUSE GOITER W/O THYR 10/06/2017 MARTIN MUHAMMAD Ot R21 RASH AND OTHER NONSPECIFIC SKIN ERUPTION 10/06/2017 MARTIN MUHAMMAD Ot Z79.899 OTHER CUSTODIAL (CURRENT) DRUG THERAPY 10/06/2017 MARTIN MUHAMMADP Ot 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 10/06/2017 MARTIN MUHAMMAD VARNISH REMOVER Ot E05.00 THYROTOXICOSIS W DIFFUSE GOITER W/O THYR 10/06/2017 MARTIN MUHAMMADP Ot 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 10/06/2017 DAVI SMITH, BASHAR J Ot E05.00 THYROTOXICOSIS W DIFFUSE GOITER W/O THYR 10/06/2017 RAFAEL BARTLETT, RADHA L Ot E05.00 THYROTOXICOSIS W DIFFUSE GOITER W/O THYR 10/06/2017 RAFAEL BARTLETT, RADHA L Ot M54.2 CERVICALGIA 10/06/2017 RAFAEL DO, RADHA L Ot E05.00 THYROTOXICOSIS W DIFFUSE GOITER W/O THYR 10/06/2017 RAFAEL BARTLETT, RADHA L Ot E05.00 THYROTOXICOSIS W DIFFUSE GOITER W/O THYR 10/06/2017 MARTIN MUHAMMAD Ot 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 10/06/2017 SANTIAGO GARZA Ot 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 10/06/2017 SANTIAGO GARZA Ot R42 DIZZINESS AND GIDDINESS 10/06/2017 Ot 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 10/06/2017 RAFAEL BARTLETT, RADHA L Ot E05.00 THYROTOXICOSIS W DIFFUSE GOITER W/O THYR 10/06/2017 RAFAEL BARTLETT, RADHA L Ot E05.00 THYROTOXICOSIS W DIFFUSE GOITER W/O THYR 10/06/2017 MARTIN MUHAMMAD Ot 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 10/06/2017 MARTIN MUHAMMAD Ot I25.10 ATHSCL HEART DISEASE OF [place] CORONARY 10/06/2017 MARTIN MUHAMMAD Ot 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 PULMONARY HYPERTENSION 10/06/2017 MARTIN MUHAMMAD Ot Z79.899 OTHER CUSTODIAL (CURRENT) DRUG THERAPY 10/06/2017 MARTIN MUHAMMAD Ot 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 10/06/2017 MARTIN MUHAMMAD Ot R52 PAIN, UNSPECIFIED 10/06/2017 SANTIAGO GARZA Ot 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 10/06/2017 SANTIAGO GARZA Ot Z51.11 ENCOUNTER FOR ANTINEOPLASTIC CHEMOTHERAP 10/06/2017 LATRICE EUBANKS Ot 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 10/06/2017 LATRICE EUBANKS Ot I25.10 ATHSCL HEART DISEASE OF [place] CORONARY 10/06/2017 LATRICE EUBANKS Ot R00.2 PALPITATIONS 10/06/2017 LATRICE EUBANKS Ot R06.02 SHORTNESS OF BREATH 10/06/2017 MARTIN MUHAMMAD VARNISH REMOVER Ot 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 10/06/2017 MARTIN MUHAMMAD VARNISH REMOVER Ot I26.99 OTHER PULMONARY EMBOLISM WITHOUT ACUTE C 10/06/2017 MARTIN MUHAMMAD VARNISH REMOVER Ot K76.89 OTHER SPECIFIED DISEASES OF LIVER 10/06/2017 MARTIN MUHAMMAD VARNISH REMOVER Ot R91.8 OTHER NONSPECIFIC ABNORMAL FINDING OF [place]IS[place] 10/06/2017 RADHA HALL DO Ot E03.2 HYPOTHYROIDISM DUE TO MEDS AND OTH EXOGE 10/06/2017 SANTIAGO GARZA Ot 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 10/06/2017 MEHUL SMITH, MANUEL Amaral Ot R31.9 HEMATURIA, UNSPECIFIED 10/06/2017 SANTIAGO GARZA Ot 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 10/06/2017 SANTIAGO GARZA Ot 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 NEOPLASM OF UPPER LOBE, RIGHT 10/06/2017 SANTIAGO GARZA Ot 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 10/06/2017 SANTIAGO GARZA Ot 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 10/06/2017 SANTIAGO GARZA Ot E05.00 THYROTOXICOSIS W DIFFUSE GOITER W/O THYR 10/06/2017 SANTIAGO GARZA Ot E80.6 OTHER DISORDERS OF BILIRUBIN METABOLISM 10/06/2017 SANTIAGO GARZA Ot I25.10 ATHSCL HEART DISEASE OF [place] CORONARY 10/06/2017 SANTIAGO GARZA Ot I27.20 PULMONARY HYPERTENSION, UNSPECIFIED 10/06/2017 SANTIAGO GARZA Ot 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 10/06/2017 SANTIAGO GARZA Ot 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 10/06/2017 SANTIAGO GARZA Ot Z82.49 FAMILY HX OF ISCHEM HEART DIS AND OTH DI 10/06/2017 SANTIAGO GARZA Cristin Ot 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 10/06/2017 MEHUL SMITH, MANUEL N Ot V76.12 OTH SCREEN MAMMO-MALIGN NEOPLASM OF HEIDI 10/06/2017 CHANEL TOMLINSON MD Ot 242.00 TOX DIF GOITER NO CRISIS 10/06/2017 CHANEL TOMLINSON MD Ot 401.9 HYPERTENSION NOS 10/06/2017 CHANEL TOMLINSON MD Ot 729.5 PAIN IN LIMB 10/06/2017 CHANEL TOMLINSON MD Ot 785.1 PALPITATIONS 10/06/2017 CHANEL TOMLINSON MD Ot 786.05 SHORTNESS OF BREATH 10/06/2017 CHANEL TOMLINSON MD Ot 786.09 RESPIRATORY ABNORM NEC 10/06/2017 CHANEL TOMLINSON MD Ot V12.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 10/06/2017 CHANEL TOMLINSON MD Ot 242.00 TOX DIF GOITER NO CRISIS 10/06/2017 CHANEL TOMLINSON MD Ot 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 UNSP 10/06/2017 CHANEL TOMLINSON MD Ot 785.1 PALPITATIONS 10/06/2017 CHANEL TOMLINSON MD Ot 786.05 SHORTNESS OF BREATH 10/06/2017 KAYLIE HAMPTON DO Ot 416.8 CHR PULMON HEART DIS NEC 10/06/2017 KAYLIE HAMPTON DO Ot 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 UNSP 10/06/2017 KAYLIE HAMPTON DO Ot 786.05 SHORTNESS OF BREATH 10/06/2017 KAYLIE HAMPTON DO Ot 793.19 OTHER NONSPECIFIC ABNORMAL FINDING OF [place] 10/06/2017 KAYLIE HAMPTON DO Ot 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 10/06/2017 KAYLIE HAMPTON DO Ot 786.05 SHORTNESS OF BREATH 10/06/2017 KAYLIE HAMPTON DO Ot 786.6 CHEST SWELLING/MASS/LUMP 10/06/2017 KAYLA, SANTIAGO Amaral Ot 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 10/06/2017 MARTIN MUHAMMAD VARNISH REMOVER Ot 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 10/06/2017 MARTIN MUHAMMAD VARNISH REMOVER Ot 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 10/06/2017 MARTIN MUHAMMADP Ot 242.00 TOX DIF GOITER NO CRISIS 10/06/2017 MARTIN MUHAMMAD Ot V58.69 OTH MED,LT,CURRENT USE 10/06/2017 MARTIN MUHAMMAD VARNISH REMOVER Ot 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 10/06/2017 MARTIN MUHAMMAD Ot E05.00 THYROTOXICOSIS W DIFFUSE GOITER W/O THYR 10/06/2017 MARTIN MUHAMMAD VARNISH REMOVER Ot 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 10/06/2017 RAFAEL BARTLETT, RADHA L Ot E05.00 THYROTOXICOSIS W DIFFUSE GOITER W/O THYR 10/06/2017 RAFAEL BARTLETT, RADHA L Ot E05.00 THYROTOXICOSIS W DIFFUSE GOITER W/O THYR 10/06/2017 RAFAEL BARTLETT, RADHA L Ot R25.2 CRAMP AND SPASM 10/06/2017 SANTIAGO GARZA Ot 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 10/06/2017 MARTIN MUHAMMADP Ot 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 10/06/2017 MARTIN MUHAMMAD Ot E05.00 THYROTOXICOSIS W DIFFUSE GOITER W/O THYR 10/06/2017 MARTIN MUHAMMAD VARNISH REMOVER Ot L27.0 GEN SKIN ERUPTION DUE TO DRUGS AND MEDS 10/06/2017 MARTIN MUHAMMAD Ot T45.1X5A ADVERSE EFFECT OF ANTINEOPLASTIC AND IMM 10/06/2017 MARTIN MUHAMMAD Ot 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 10/06/2017 RAFAEL BARTLETT, RADHA L Ot E05.00 THYROTOXICOSIS W DIFFUSE GOITER W/O THYR 10/06/2017 RAFAEL BARTLETT RADHA L Ot I10 ESSENTIAL (PRIMARY) HYPERTENSION 10/06/2017 Ot 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 10/06/2017 RAFAEL BARTLETT, RADHA L Ot E05.00 THYROTOXICOSIS W DIFFUSE GOITER W/O THYR 10/06/2017 MARTIN MUHAMMAD VARNISH REMOVER Ot 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 10/06/2017 HALL , RADHA L Ot E05.00 THYROTOXICOSIS W DIFFUSE GOITER W/O THYR 10/06/2017 MARTIN MUHAMMAD Ot 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 10/06/2017 MARTIN MUHAMMADP Ot C79.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 10/06/2017 MARTIN MUHAMMAD Ot E05.00 THYROTOXICOSIS W DIFFUSE GOITER W/O THYR 10/06/2017 MARTIN MUHAMMAD VARNISH REMOVER Ot R21 RASH AND OTHER NONSPECIFIC SKIN ERUPTION 10/06/2017 MARTIN MUHAMMADP Ot Z79.899 OTHER CUSTODIAL (CURRENT) DRUG THERAPY 10/06/2017 MARTIN MUHAMMAD Ot 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 10/06/2017 MARTIN MUHAMMADP Ot E05.00 THYROTOXICOSIS W DIFFUSE GOITER W/O THYR 10/06/2017 MARTIN MUHAMMAD Ot 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 10/06/2017 DAVI SMITH, CHANEL J Ot E05.00 THYROTOXICOSIS W DIFFUSE GOITER W/O THYR 10/06/2017 RAFAEL BARTLETT, RADHA L Ot E05.00 THYROTOXICOSIS W DIFFUSE GOITER W/O THYR 10/06/2017 RAFAEL BARTLETT, RADHA L Ot M54.2 CERVICALGIA 10/06/2017 RAFAEL BARTLETT, RADHA L Ot E05.00 THYROTOXICOSIS W DIFFUSE GOITER W/O THYR 10/06/2017 RAFAEL BARTLETT, RADHA L Ot E05.00 THYROTOXICOSIS W DIFFUSE GOITER W/O THYR 10/06/2017 MARTIN MUHAMMAD VARNISH REMOVER Ot 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 10/06/2017 SANTIAGO GARZA Ot 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 10/06/2017 SNATIAGO GARZA Ot R42 DIZZINESS AND GIDDINESS 10/06/2017 Ot 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 10/06/2017 JOIE HALL DOISON L Ot E05.00 THYROTOXICOSIS W DIFFUSE GOITER W/O THYR 10/06/2017 RAFAEL BARTLETT, RADHA L Ot E05.00 THYROTOXICOSIS W DIFFUSE GOITER W/O THYR 10/06/2017 MARTIN MUHAMMAD VARNISH REMOVER Ot 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 10/06/2017 MARTIN MUHAMMAD VARNISH REMOVER Ot I25.10 ATHSCL HEART DISEASE OF [place] CORONARY 10/06/2017 MARTIN MUHAMMADP Ot 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 PULMONARY HYPERTENSION 10/06/2017 MARTIN MUHAMMAD VARNISH REMOVER Ot Z79.899 OTHER CUSTODIAL (CURRENT) DRUG THERAPY 10/06/2017 MARTIN MUHAMMADP Ot 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 10/06/2017 MARTIN MUHAMMAD Ot R52 PAIN, UNSPECIFIED 10/06/2017 SANTIAGO GARZA Ot 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 10/06/2017 SANTIAGO GARZA Ot Z51.11 ENCOUNTER FOR ANTINEOPLASTIC CHEMOTHERAP 10/06/2017 LATRICE EUBANKS Ot 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 10/06/2017 LATRICE EUBANKS Ot I25.10 ATHSCL HEART DISEASE OF [place] CORONARY 10/06/2017 LATRICE EUBANKS Ot R00.2 PALPITATIONS 10/06/2017 LATRICE EUBANKS Ot R06.02 SHORTNESS OF BREATH 10/06/2017 MARTIN MUHAMMAD Ot 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 10/06/2017 MARTIN MUHAMMAD VARNISH REMOVER Ot I26.99 OTHER PULMONARY EMBOLISM WITHOUT ACUTE C 10/06/2017 MARTIN MUHAMMAD Ot K76.89 OTHER SPECIFIED DISEASES OF LIVER 10/06/2017 MARTIN MUHAMMADP Ot R91.8 OTHER NONSPECIFIC ABNORMAL FINDING OF [place] 10/06/2017 RADHA HALL DO L Ot E03.2 HYPOTHYROIDISM DUE TO MEDS AND OTH EXOGE 10/06/2017 SANTIAGO GARZA Ot 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 10/06/2017 MEHULMANUEL VALLEJO MD Ot R31.9 HEMATURIA, UNSPECIFIED 10/06/2017 KAYLA, SANTIAGO Amaral Ot 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 10/06/2017 SANTIAGO GARZA Ot 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 NEOPLASM OF UPPER LOBE, RIGHT 10/06/2017 SANTIAGO GARZA Ot 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 10/06/2017 SANTIAGO GARZA Ot 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 10/06/2017 SANTIAGO GARZA Ot E05.00 THYROTOXICOSIS W DIFFUSE GOITER W/O THYR 10/06/2017 SANTIAGO GARZA Ot E80.6 OTHER DISORDERS OF BILIRUBIN METABOLISM 10/06/2017 SANTIAGO GARZA Ot I25.10 ATHSCL HEART DISEASE OF [place] CORONARY 10/06/2017 SANTIAGO GARZA Ot I27.20 PULMONARY HYPERTENSION, UNSPECIFIED 10/06/2017 SANTIAGO GARZA Ot 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 10/06/2017 SANTIAGO GARZA Ot Z79.899 OTHER CUSTODIAL (CURRENT) DRUG THERAPY 10/06/2017 SANTIAGO GARZA Ot Z82.49 FAMILY HX OF ISCHEM HEART DIS AND OTH DI 10/06/2017 SANTIAGO GARZA Ot 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 10/06/2017 MANUEL CARVER MD Ot V76.12 OTH SCREEN MAMMO-MALIGN NEOPLASM OF HEIDI 10/06/2017 CHANEL TOMLINSON MD Ot 242.00 TOX DIF GOITER NO CRISIS 10/06/2017 CHANEL TOMLINSON MD Ot 401.9 HYPERTENSION NOS 10/06/2017 CHANEL TOMLINSON MD Ot 729.5 PAIN IN LIMB 10/06/2017 CHANEL TOMLINSON MD Ot 785.1 PALPITATIONS 10/06/2017 CHANEL TOMLINSON MD Ot 786.05 SHORTNESS OF BREATH 10/06/2017 CHANEL TOMLINSON MD Ot 786.09 RESPIRATORY ABNORM NEC 10/06/2017 CHANEL TOMLINSON MD Ot V12.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 10/06/2017 CHANEL TOMLINSON MD Ot 242.00 TOX DIF GOITER NO CRISIS 10/06/2017 CHANEL TOMLINSON MD Ot 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 UNSP 10/06/2017 DAVI SMITH, CHANEL Landin Ot 785.1 PALPITATIONS 10/06/2017 DAVI SMITH, CHANEL Landin Ot 786.05 SHORTNESS OF BREATH 10/06/2017 KAYLIE HAMPTON DO Ot 416.8 CHR PULMON HEART DIS NEC 10/06/2017 KAYLIE HAMPTON DO Ot 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 UNSP 10/06/2017 KAYLIE HAMPTON DO Ot 786.05 SHORTNESS OF BREATH 10/06/2017 KAYLIE HAMPTON DO Ot 793.19 OTHER NONSPECIFIC ABNORMAL FINDING OF [place] 10/06/2017 KAYLIE HAMPTON DO Ot 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 10/06/2017 KAYLIE HAMPTON DO Ot 786.05 SHORTNESS OF BREATH 10/06/2017 KAYLIE HAMPTON DO Ot 786.6 CHEST SWELLING/MASS/LUMP 10/06/2017 SANTIAGO GARZA Ot 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 10/06/2017 MARTIN MUHAMMAD VARNISH REMOVER Ot 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 10/06/2017 MARTIN MUHAMMAD VARNISH REMOVER Ot 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 10/06/2017 MARTIN MUHAMMAD VARNISH REMOVER Ot 242.00 TOX DIF GOITER NO CRISIS 10/06/2017 MARTIN MUHAMMAD VARNISH REMOVER Ot V58.69 OT MED,LT,CURRENT USE 10/06/2017 MARTIN MUHAMMAD VARNISH REMOVER Ot 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 10/06/2017 MARTIN MUHAMMAD VARNISH REMOVER Ot E05.00 THYROTOXICOSIS W DIFFUSE GOITER W/O THYR 10/06/2017 MARTIN MUHAMMAD VARNISH REMOVER Ot 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 10/06/2017 RADHA HALL DO Ot E05.00 THYROTOXICOSIS W DIFFUSE GOITER W/O THYR 10/06/2017 RADHA HALL DO Ot E05.00 THYROTOXICOSIS W DIFFUSE GOITER W/O THYR 10/06/2017 RADHA HALL DO Ot R25.2 CRAMP AND SPASM 10/06/2017 SANTIAGO GARZA Ot 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 10/06/2017 MARTIN MUHAMMAD VARNISH REMOVER Ot 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 10/06/2017 MARTIN MUHAMMADP Ot E05.00 THYROTOXICOSIS W DIFFUSE GOITER W/O THYR 10/06/2017 MARTIN MUHAMMAD Ot L27.0 GEN SKIN ERUPTION DUE TO DRUGS AND MEDS 10/06/2017 MARTIN MUHAMMAD Ot T45.1X5A ADVERSE EFFECT OF ANTINEOPLASTIC AND IMM 10/06/2017 MARTIN MUHAMMAD VARNISH REMOVER Ot 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 10/06/2017 RAFAEL BARTLETT RADHA L Ot E05.00 THYROTOXICOSIS W DIFFUSE GOITER W/O THYR 10/06/2017 RAFAEL BARTLETT RADHA L Ot I10 ESSENTIAL (PRIMARY) HYPERTENSION 10/06/2017 Ot 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 10/06/2017 JOIE HALL DOISON L Ot E05.00 THYROTOXICOSIS W DIFFUSE GOITER W/O THYR 10/06/2017 MARTIN MUHAMMAD Ot 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 10/06/2017 HALL DO RADHA L Ot E05.00 THYROTOXICOSIS W DIFFUSE GOITER W/O THYR 10/06/2017 MARTIN MUHAMMAD VARNISH REMOVER Ot 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 10/06/2017 MARTIN MUHAMMAD Ot C79.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 10/06/2017 MARTIN MUHAMMAD Ot E05.00 THYROTOXICOSIS W DIFFUSE GOITER W/O THYR 10/06/2017 MARTIN MUHAMMAD Ot R21 RASH AND OTHER NONSPECIFIC SKIN ERUPTION 10/06/2017 MARTIN MUHAMMADP Ot Z79.899 OTHER CUSTODIAL (CURRENT) DRUG THERAPY 10/06/2017 MARTIN MUHAMMAD VARNISH REMOVER Ot 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 10/06/2017 MARTIN MUHAMMADP Ot E05.00 THYROTOXICOSIS W DIFFUSE GOITER W/O THYR 10/06/2017 MARTIN MUHAMMADP Ot 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 10/06/2017 DAVI SMITH, CHANEL J Ot E05.00 THYROTOXICOSIS W DIFFUSE GOITER W/O THYR 10/06/2017 HALL DO, RADHA L Ot E05.00 THYROTOXICOSIS W DIFFUSE GOITER W/O THYR 10/06/2017 HALL DO, RADHA L Ot M54.2 CERVICALGIA 10/06/2017 HALL DO, RADHA L Ot E05.00 THYROTOXICOSIS W DIFFUSE GOITER W/O THYR 10/06/2017 HALL DO, RADHA L Ot E05.00 THYROTOXICOSIS W DIFFUSE GOITER W/O THYR 10/06/2017 MARTIN MUHAMMADP Ot 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 10/06/2017 SANTIAGO GARZA Ot 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 10/06/2017 SANTIAGO GARZA Ot R42 DIZZINESS AND GIDDINESS 10/06/2017 Ot 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 10/06/2017 HALL DO, RADHA L Ot E05.00 THYROTOXICOSIS W DIFFUSE GOITER W/O THYR 10/06/2017 HALL DO, RADHA L Ot E05.00 THYROTOXICOSIS W DIFFUSE GOITER W/O THYR 10/06/2017 MARTIN MUHAMMAD VARNISH REMOVER Ot 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 10/06/2017 MARTIN MUHAMMAD Ot I25.10 ATHSCL HEART DISEASE OF [place] CORONARY 10/06/2017 MARTIN MUHAMMADP Ot 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 PULMONARY HYPERTENSION 10/06/2017 MARTIN MUHAMMAD Ot 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 10/06/2017 MARTIN MUHAMMAD Ot 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 10/06/2017 MARTIN MUHAMMADP Ot R52 PAIN, UNSPECIFIED 10/06/2017 SANTIAGO GARZA Ot 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 10/06/2017 SANTIAGO GARZA Ot Z51.11 ENCOUNTER FOR ANTINEOPLASTIC CHEMOTHERAP 10/06/2017 LATRICE EUBANKS Ot 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 10/06/2017 LATRICE EUBANKS Ot I25.10 ATHSCL HEART DISEASE OF [place] CORONARY 10/06/2017 LATRICE EUBANKS Ot R00.2 PALPITATIONS 10/06/2017 LATRICE EUABNKS Ot R06.02 SHORTNESS OF BREATH 10/06/2017 MARTIN MUHAMMAD VARNISH REMOVER Ot 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 10/06/2017 MARTIN MUHAMMAD VARNISH REMOVER Ot I26.99 OTHER PULMONARY EMBOLISM WITHOUT ACUTE C 10/06/2017 MARTIN MUHAMMAD VARNISH REMOVER Ot K76.89 OTHER SPECIFIED DISEASES OF LIVER 10/06/2017 MARTIN MUHAMMAD S VARNISH REMOVER Ot R91.8 OTHER NONSPECIFIC ABNORMAL FINDING OF [place]IS[place] 10/06/2017 RADHA HALL DO L Ot E03.2 HYPOTHYROIDISM DUE TO MEDS AND OTH EXOGE 10/06/2017 SANTIAGO GARZA Ot 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 10/06/2017 MEHUL SMITH, MANUEL Amaral Ot R31.9 HEMATURIA, UNSPECIFIED 10/06/2017 SANTIAGO GARZA Ot 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 10/06/2017 SANTIAGO GARZA Ot 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 NEOPLASM OF UPPER LOBE, RIGHT 10/06/2017 SANTIAGO GARZA Ot 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 10/06/2017 SANTIAGO GARZA Ot 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 10/06/2017 SANTIAGO GARZA Ot E05.00 THYROTOXICOSIS W DIFFUSE GOITER W/O THYR 10/06/2017 SANTIAGO GARZA Ot E80.6 OTHER DISORDERS OF BILIRUBIN METABOLISM 10/06/2017 SANTIAGO GARZA Ot I25.10 ATHSCL HEART DISEASE OF [place] CORONARY 10/06/2017 SANTIAGO GARZA Ot I27.20 PULMONARY HYPERTENSION, UNSPECIFIED 10/06/2017 SANTIAGO GARZA Ot 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 10/06/2017 SANTIAGO GARZA Ot 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 10/06/2017 SANTIAGO GARZA Cristin Ot Z82.49 FAMILY HX OF ISCHEM HEART DIS AND OTH DI 10/06/2017 SANTIAGO GARZA Cristin Ot 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 10/07/2017 SANTIAGO GARZA Cristin Ot 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 10/07/2017 SANTIAGO GARZA Cristin Ot 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 10/07/2017 SANTIAGO GARZA Cristin Ot M19.011 PRIMARY OSTEOARTHRITIS, RIGHT SHOULDER 10/07/2017 SANTIAGO GARZA Cristin Ot M89.9 DISORDER OF BONE, UNSPECIFIED 10/12/2017 MEHUL SMITH, MANUEL Amaral Ot V76.12 OTH SCREEN MAMMO-MALIGN NEOPLASM OF HEIDI 10/12/2017 CHANEL TOMLINSON MD Ot 242.00 TOX DIF GOITER NO CRISIS 10/12/2017 CHANEL TOMLINSON MD Ot 401.9 HYPERTENSION NOS 10/12/2017 CHANEL TOMLINSON MD Ot 729.5 PAIN IN LIMB 10/12/2017 CHANEL TOMLINSON MD Ot 785.1 PALPITATIONS 10/12/2017 CHANEL TOMLINSON MD Ot 786.05 SHORTNESS OF BREATH 10/12/2017 CHANEL TOMLINSON MD Ot 786.09 RESPIRATORY ABNORM NEC 10/12/2017 CHANEL TOMLINSON MD Ot V12.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 10/12/2017 CHANEL TOMLINSON MD Ot 242.00 TOX DIF GOITER NO CRISIS 10/12/2017 CHANEL TOMLINSON MD Ot 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 [facility] 10/12/2017 CHANEL TOMLINSON MD Ot 785.1 PALPITATIONS 10/12/2017 CHNAEL TOMLINSON MD Ot 786.05 SHORTNESS OF BREATH 10/12/2017 KAYLIE HAMPTON DO Ot 416.8 CHR PULMON HEART DIS NEC 10/12/2017 KAYLIE HAMPTON DO Ot 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 [facility] 10/12/2017 KAYLIE HAMPTON DO Ot 786.05 SHORTNESS OF BREATH 10/12/2017 KAYLIE HAMPTON DO Ot 793.19 OTHER NONSPECIFIC ABNORMAL FINDING OF [place] 10/12/2017 KAYLIE HAMPTON DO Ot 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 10/12/2017 MEMO BARTLETT KAYLIE M Ot 786.05 SHORTNESS OF BREATH 10/12/2017 KAYLIE HAMPTON DO Ot 786.6 CHEST SWELLING/MASS/LUMP 10/12/2017 SANTIAGO GARZA Ot 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 10/12/2017 MARTIN MUHAMMAD VARNISH REMOVER Ot 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 10/12/2017 MARTIN MUHAMMAD VARNISH REMOVER Ot 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 10/12/2017 MARTIN MUHAMMADP Ot 242.00 TOX DIF GOITER NO CRISIS 10/12/2017 MARTIN MUHAMMAD Ot V58.69 OTH MED,LT,CURRENT USE 10/12/2017 MARTIN MUHAMMAD VARNISH REMOVER Ot 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 10/12/2017 MARTIN MUHAMMADP Ot E05.00 THYROTOXICOSIS W DIFFUSE GOITER W/O THYR 10/12/2017 MARTIN MUHAMMADP Ot Z79.899 OTHER CUSTODIAL (CURRENT) DRUG THERAPY 10/12/2017 JOIE HALL DOISON L Ot E05.00 THYROTOXICOSIS W DIFFUSE GOITER W/O THYR 10/12/2017 JOIE HALL DOISON L Ot E05.00 THYROTOXICOSIS W DIFFUSE GOITER W/O THYR 10/12/2017 RADHA HALL DO L Ot R25.2 CRAMP AND SPASM 10/12/2017 SANTIAGO GARZA Ot 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 10/12/2017 MARTIN MUHAMMAD VARNISH REMOVER Ot 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 10/12/2017 MARTIN MUHAMMAD VARNISH REMOVER Ot E05.00 THYROTOXICOSIS W DIFFUSE GOITER W/O THYR 10/12/2017 MARTIN MUHAMMADP Ot L27.0 GEN SKIN ERUPTION DUE TO DRUGS AND MEDS 10/12/2017 MARTIN MUHAMMADP Ot T45.1X5A ADVERSE EFFECT OF ANTINEOPLASTIC AND IMM 10/12/2017 MARTIN MUHAMMAD VARNISH REMOVER Ot Z79.899 OTHER CUSTODIAL (CURRENT) DRUG THERAPY 10/12/2017 RAFAEL BARTLETT, RADHA L Ot E05.00 THYROTOXICOSIS W DIFFUSE GOITER W/O THYR 10/12/2017 RAFAEL BARTLETT, RADHA L Ot I10 ESSENTIAL (PRIMARY) HYPERTENSION 10/12/2017 Ot 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 10/12/2017 RAFAEL BARTLETT, RADHA L Ot E05.00 THYROTOXICOSIS W DIFFUSE GOITER W/O THYR 10/12/2017 MARTIN MUHAMMADP Ot 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 10/12/2017 RAFAEL BARTLETT RADHA L Ot E05.00 THYROTOXICOSIS W DIFFUSE GOITER W/O THYR 10/12/2017 MARTIN MUHAMMAD Ot 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 10/12/2017 MARTIN MUHAMMAD Ot C79.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 10/12/2017 MARTIN MUHAMMAD Ot E05.00 THYROTOXICOSIS W DIFFUSE GOITER W/O THYR 10/12/2017 MARTIN MUHAMMADP Ot R21 RASH AND OTHER NONSPECIFIC SKIN ERUPTION 10/12/2017 MARTIN MUHAMMADP Ot Z79.899 OTHER CUSTODIAL (CURRENT) DRUG THERAPY 10/12/2017 MARTIN MUHAMMAD Ot 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 10/12/2017 MARTIN MUHAMMAD Ot E05.00 THYROTOXICOSIS W DIFFUSE GOITER W/O THYR 10/12/2017 MARTIN MUHAMMADP Ot 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 10/12/2017 DAVI SMITH, CHANEL Landin Ot E05.00 THYROTOXICOSIS W DIFFUSE GOITER W/O THYR 10/12/2017 RAFAEL BARTLETT RADHA L Ot E05.00 THYROTOXICOSIS W DIFFUSE GOITER W/O THYR 10/12/2017 RAFAEL BARTLETT RADHA L Ot M54.2 CERVICALGIA 10/12/2017 RAFAEL BARTLETT, RADHA L Ot E05.00 THYROTOXICOSIS W DIFFUSE GOITER W/O THYR 10/12/2017 RAFAEL BARTLETT RADHA L Ot E05.00 THYROTOXICOSIS W DIFFUSE GOITER W/O THYR 10/12/2017 MARTIN MUHAMMAD VARNISH REMOVER Ot 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 10/12/2017 SANTIAGO GARZA Ot 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 10/12/2017 SANTIAGO GARZA Ot R42 DIZZINESS AND GIDDINESS 10/12/2017 Ot 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 10/12/2017 HALL DO, RADHA L Ot E05.00 THYROTOXICOSIS W DIFFUSE GOITER W/O THYR 10/12/2017 HALL DO, RADHA L Ot E05.00 THYROTOXICOSIS W DIFFUSE GOITER W/O THYR 10/12/2017 MARTIN MUHAMMAD VARNISH REMOVER Ot 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 10/12/2017 MARTIN MUHAMMADP Ot I25.10 ATHSCL HEART DISEASE OF [place] CORONARY 10/12/2017 MARTIN MUHAMMADP Ot 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 PULMONARY HYPERTENSION 10/12/2017 MARTIN MUHAMMAD VARNISH REMOVER Ot 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 10/12/2017 MARTIN MUHAMMAD VARNISH REMOVER Ot 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 10/12/2017 MARTIN MUHAMMAD Ot R52 PAIN, UNSPECIFIED 10/12/2017 SANTIAGO GARZA Ot 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 10/12/2017 SANTIAGO GARZA Ot Z51.11 ENCOUNTER FOR ANTINEOPLASTIC CHEMOTHERAP 10/12/2017 LATRICE EUBANKS Ot 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 10/12/2017 LATRICE EUBANKS Ot I25.10 ATHSCL HEART DISEASE OF [place] CORONARY 10/12/2017 LATRICE EUBANKS Ot R00.2 PALPITATIONS 10/12/2017 LATRICE EUBANKS Ot R06.02 SHORTNESS OF BREATH 10/12/2017 MARTIN MUHAMMADP Ot 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 10/12/2017 MARTIN MUHAMMADP Ot I26.99 OTHER PULMONARY EMBOLISM WITHOUT ACUTE C 10/12/2017 MARTIN MUHAMMAD VARNISH REMOVER Ot K76.89 OTHER SPECIFIED DISEASES OF LIVER 10/12/2017 MARTIN MUHAMMAD VARNISH REMOVER Ot R91.8 OTHER NONSPECIFIC ABNORMAL FINDING OF [place] 10/12/2017 RADHA HALL DO Ot E03.2 HYPOTHYROIDISM DUE TO MEDS AND OTH EXOGE 10/12/2017 SANTIAGO GARZA Ot 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 10/12/2017 MEHUL SMITH, MANUEL Amaral Ot R31.9 HEMATURIA, UNSPECIFIED 10/12/2017 SANTIAGO GARZA Ot 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 10/12/2017 SANTIAGO GARZA Ot 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 NEOPLASM OF UPPER LOBE, RIGHT 10/12/2017 SANTIAGO GARZA Ot 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 10/12/2017 SANTIAGO GARZA Ot 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 10/12/2017 SANTIAGO GARZA Ot E05.00 THYROTOXICOSIS W DIFFUSE GOITER W/O THYR 10/12/2017 SANTIAGO GARZA Ot E80.6 OTHER DISORDERS OF BILIRUBIN METABOLISM 10/12/2017 SANTIAGO GARZA Ot I25.10 ATHSCL HEART DISEASE OF [place] CORONARY 10/12/2017 SANTIAGO GARZA Ot I27.20 PULMONARY HYPERTENSION, UNSPECIFIED 10/12/2017 SANTIAGO GARZA Ot Z79.01 CUSTODIAL (CURRENT) USE OF 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 10/12/2017 SANTIAGO GARZA Ot Z79.899 OTHER CUSTODIAL (CURRENT) DRUG THERAPY 10/12/2017 SANTIAGO GARZA Ot Z82.49 FAMILY HX OF ISCHEM HEART DIS AND OTH DI 10/12/2017 SANTIAGO GARZA Ot 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 10/12/2017 SANTIAGO GARZA Ot 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 10/12/2017 SANTIAGO GARZA Ot 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 10/12/2017 SANTIAGO GARZA Ot M19.011 PRIMARY OSTEOARTHRITIS, RIGHT SHOULDER 10/12/2017 SANTIAGO GARZA Ot M89.9 DISORDER OF BONE, UNSPECIFIED 11/19/2017 MEHUL SMITH, MANUEL Amaral Ot V76.12 OTH SCREEN MAMMO-MALIGN NEOPLASM OF HEIDI 11/19/2017 CHANEL TOMLINSON MD Ot 242.00 TOX DIF GOITER NO CRISIS 11/19/2017 CHANEL TOMLINSON MD Ot 401.9 HYPERTENSION NOS 11/19/2017 CHANEL TOMLINSON MD Ot 729.5 PAIN IN LIMB 11/19/2017 CHANEL TOMLINSON MD Ot 785.1 PALPITATIONS 11/19/2017 CHANEL TOMLINSON MD Ot 786.05 SHORTNESS OF BREATH 11/19/2017 CHANEL TOMLINSON MD Ot 786.09 RESPIRATORY ABNORM NEC 11/19/2017 CHANEL TOMLINSON MD Ot V12.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 11/19/2017 CHANEL TOMLINSON MD Ot 242.00 TOX DIF GOITER NO CRISIS 11/19/2017 CHANEL TOMLINSON MD Ot 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 UNSP 11/19/2017 CHANEL TOMLINSON MD Ot 785.1 PALPITATIONS 11/19/2017 CHANEL TOMLINSON MD Ot 786.05 SHORTNESS OF BREATH 11/19/2017 KAYLIE HAMPTON DO Ot 416.8 CHR PULMON HEART DIS NEC 11/19/2017 KAYLIE HAMPTON DO Ot 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 UNSP 11/19/2017 KAYLIE HAMPTON DO Ot 786.05 SHORTNESS OF BREATH 11/19/2017 KAYLIE HAMPTON DO Ot 793.19 OTHER NONSPECIFIC ABNORMAL FINDING OF [place] 11/19/2017 KAYLIE HAMPTON DO Ot 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 11/19/2017 KAYLIE HAMPTON DO Ot 786.05 SHORTNESS OF BREATH 11/19/2017 KAYLIE HAMPTON DO Ot 786.6 CHEST SWELLING/MASS/LUMP 11/19/2017 SANTIAGO GARZA Ot 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 11/19/2017 MARTIN MUHAMMAD VARNISH REMOVER Ot 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 11/19/2017 MARTIN MUHAMMAD VARNISH REMOVER Ot 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 11/19/2017 MARTIN MUHAMMAD VARNISH REMOVER Ot 242.00 TOX DIF GOITER NO CRISIS 11/19/2017 MARTIN MUHAMMAD Ot V58.69 OTH MED,LT,CURRENT USE 11/19/2017 MARTIN MUHAMMAD Ot 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 11/19/2017 MARTIN MUHAMMADP Ot E05.00 THYROTOXICOSIS W DIFFUSE GOITER W/O THYR 11/19/2017 MARTIN MUHAMMADP Ot 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 11/19/2017 RAFAEL BARTLETT, RADHA L Ot E05.00 THYROTOXICOSIS W DIFFUSE GOITER W/O THYR 11/19/2017 HALL DO, RADHA L Ot E05.00 THYROTOXICOSIS W DIFFUSE GOITER W/O THYR 11/19/2017 HALL DO, RADHA L Ot R25.2 CRAMP AND SPASM 11/19/2017 SANTIAGO GARZA Ot 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 11/19/2017 MARTIN MUHAMMADP Ot 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 11/19/2017 MARTIN MUHAMMADP Ot E05.00 THYROTOXICOSIS W DIFFUSE GOITER W/O THYR 11/19/2017 MARTIN MUHAMMAD Ot L27.0 GEN SKIN ERUPTION DUE TO DRUGS AND MEDS 11/19/2017 ANSLEY MUHAMMADHEATHER Howard LUTZP Ot T45.1X5A ADVERSE EFFECT OF ANTINEOPLASTIC AND IMM 11/19/2017 ANSLEY MUHAMMADHEATHER Howard PINEDA Ot 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 11/19/2017 RAFAEL BARTLTET RADHA L Ot E05.00 THYROTOXICOSIS W DIFFUSE GOITER W/O THYR 11/19/2017 HALL DO, RAHDA L Ot I10 ESSENTIAL (PRIMARY) HYPERTENSION 11/19/2017 Ot 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 11/19/2017 HALL , RADHA L Ot E05.00 THYROTOXICOSIS W DIFFUSE GOITER W/O THYR 11/19/2017 MARTIN MUHAMMAD VARNISH REMOVER Ot 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 11/19/2017 RAFAEL BARTLETT, RADHA L Ot E05.00 THYROTOXICOSIS W DIFFUSE GOITER W/O THYR 11/19/2017 MARTIN MUHAMMADP Ot 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 11/19/2017 MARTIN MUHAMMADP Ot C79.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 11/19/2017 MARTIN MUHAMMADP Ot E05.00 THYROTOXICOSIS W DIFFUSE GOITER W/O THYR 11/19/2017 MARTIN MUHAMMAD Ot R21 RASH AND OTHER NONSPECIFIC SKIN ERUPTION 11/19/2017 MARTIN MUHAMMADP Ot 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 11/19/2017 MARTIN MUHAMMADP Ot 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 11/19/2017 MARTIN MUHAMMAD Ot E05.00 THYROTOXICOSIS W DIFFUSE GOITER W/O THYR 11/19/2017 MARTIN MUHAMMAD Ot Z79.899 OTHER CUSTODIAL (CURRENT) DRUG THERAPY 11/19/2017 DAVI SMITH, CHANEL Landin Ot E05.00 THYROTOXICOSIS W DIFFUSE GOITER W/O THYR 11/19/2017 RAFAEL BARTLETT, RADHA L Ot E05.00 THYROTOXICOSIS W DIFFUSE GOITER W/O THYR 11/19/2017 RAFAEL BARTLETT, RADHA L Ot M54.2 CERVICALGIA 11/19/2017 RAFAEL BARTLETT, RADHA L Ot E05.00 THYROTOXICOSIS W DIFFUSE GOITER W/O THYR 11/19/2017 RAFAEL BARTLETT, RADHA L Ot E05.00 THYROTOXICOSIS W DIFFUSE GOITER W/O THYR 11/19/2017 MARTIN MUHAMMADP Ot 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 11/19/2017 SANTIAGO GARZA Ot 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 11/19/2017 SANTIAGO GARZA Ot R42 DIZZINESS AND GIDDINESS 11/19/2017 Ot 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 11/19/2017 RAFAEL BARTLETT, RADHA L Ot E05.00 THYROTOXICOSIS W DIFFUSE GOITER W/O THYR 11/19/2017 RAFAEL BARTLETT, RADHA L Ot E05.00 THYROTOXICOSIS W DIFFUSE GOITER W/O THYR 11/19/2017 MARTIN MUHAMMAD VARNISH REMOVER Ot 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 11/19/2017 MARTIN MUHAMMAD VARNISH REMOVER Ot I25.10 ATHSCL HEART DISEASE OF [place] CORONARY 11/19/2017 MARTIN MUHAMMAD VARNISH REMOVER Ot 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 PULMONARY HYPERTENSION 11/19/2017 MARTIN MUHAMMAD Ot Z79.899 OTHER CUSTODIAL (CURRENT) DRUG THERAPY 11/19/2017 MARTIN MUHAMMAD VARNISH REMOVER Ot 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 11/19/2017 MARTIN MUHAMMAD Ot R52 PAIN, UNSPECIFIED 11/19/2017 SANTIAGO GARZA Ot 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 11/19/2017 SANTIAGO GARZA Ot Z51.11 ENCOUNTER FOR ANTINEOPLASTIC CHEMOTHERAP 11/19/2017 LATRICE EUBANKS Ot 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 11/19/2017 LATRICE EUBANKS Ot I25.10 ATHSCL HEART DISEASE OF [place] CORONARY 11/19/2017 LATRICE EUBANKS Ot R00.2 PALPITATIONS 11/19/2017 LATRICE EUBANKS Ot R06.02 SHORTNESS OF BREATH 11/19/2017 MARTIN MUHAMMAD Ot 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 11/19/2017 MARTIN MUHAMMADP Ot I26.99 OTHER PULMONARY EMBOLISM WITHOUT ACUTE C 11/19/2017 MARTIN MUHAMMAD VARNISH REMOVER Ot K76.89 OTHER SPECIFIED DISEASES OF LIVER 11/19/2017 MARTIN MUHAMMAD S VARNISH REMOVER Ot R91.8 OTHER NONSPECIFIC ABNORMAL FINDING OF LUISIOT 11/19/2017 RADHA HALL DO Ot E03.2 HYPOTHYROIDISM DUE TO MEDS AND OTH EXOGE 11/19/2017 SANTIAGO GARZA Ot 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 11/19/2017 MEHUL SMITH, MANUEL Amaral Ot R31.9 HEMATURIA, UNSPECIFIED 11/19/2017 SANTIAGO GARZA Ot 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 [facility] 11/19/2017 SANTIAGO GARZA Cristin Ot 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 NEOPLASM OF UPPER LOBE, RIGHT 11/19/2017 SANTIAGO GARZA Cristin Ot 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 11/19/2017 KAYLA KELLEEMEENAKSHI Cristin Ot 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 11/19/2017 SANTIAGO GARZA Cristin Ot E05.00 THYROTOXICOSIS W DIFFUSE GOITER W/O THYR 11/19/2017 KAYLA KELLEEMEENAKSHI Cristin Ot E80.6 OTHER DISORDERS OF BILIRUBIN METABOLISM 11/19/2017 SANTIAGO GARZA Cristin Ot I25.10 ATHSCL HEART DISEASE OF [place] CORONARY 11/19/2017 KAYLA SANTIAGO Amaral Ot I27.20 PULMONARY HYPERTENSION, UNSPECIFIED 11/19/2017 SANTIAGO GARZA Cristin Ot Z79.01 CUSTODIAL (CURRENT) USE OF 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 11/19/2017 KAYLA KELLEEMEENAKSHI Cristin Ot 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 11/19/2017 KAYLA KELLEEMEENAKSHI Cristin Ot Z82.49 FAMILY HX OF ISCHEM HEART DIS AND OTH DI 11/19/2017 SANTIAGO GARZA Cristin Ot 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 11/19/2017 SANTIAGO GARZA Cristin Ot 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 [facility] 11/19/2017 SANTIAGO GARZA Cristin Ot 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 11/19/2017 SANTIAGO GARZA Cristin Ot M19.011 PRIMARY OSTEOARTHRITIS, RIGHT SHOULDER 11/19/2017 SANTIAGO GARZA Cristin Ot M89.9 DISORDER OF BONE, UNSPECIFIED 11/21/2017 MARTIN MUHAMMAD VARNISH REMOVER Ot 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 [facility] 11/21/2017 MARTIN MUHAMMADP Ot C79.51 SECONDARY MALIGNANT NEOPLASM OF BONE 11/21/2017 MARTIN MUHAMMADP Ot G93.89 OTHER SPECIFIED DISORDERS OF BRAIN 11/21/2017 MARTIN MUAHMMADP Ot 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 11/22/2017 MARTIN MUHAMMADP Ot 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 [facility] 11/22/2017 MARTIN MUHAMMADP Ot C79.51 SECONDARY MALIGNANT NEOPLASM OF BONE 11/22/2017 MARTIN MUHAMMAD VARNISH REMOVER Ot G93.89 OTHER SPECIFIED DISORDERS OF BRAIN 11/22/2017 MARTIN MUHAMMAD VARNISH REMOVER Ot 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 11/25/2017 MARTIN MUHAMMAD VARNISH REMOVER Ot 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 [facility] 11/25/2017 MARTIN MUHAMMAD VARNISH REMOVER Ot C79.51 SECONDARY MALIGNANT NEOPLASM OF BONE 11/25/2017 MARTIN MUHAMMAD VARNISH REMOVER Ot G93.89 OTHER SPECIFIED DISORDERS OF BRAIN 11/25/2017 MARTIN MUHAMMAD VARNISH REMOVER Ot 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 12/20/2017 MEHUL SMITH, MANUEL Amaral Ot V76.12 OTH SCREEN MAMMO-MALIGN NEOPLASM OF HEIDI 12/20/2017 CHANEL TOMLINSON MD Ot 242.00 TOX DIF GOITER NO CRISIS 12/20/2017 CHANEL TOMLINSON MD Ot 401.9 HYPERTENSION NOS 12/20/2017 CHANEL TOMLINSON MD Ot 729.5 PAIN IN LIMB 12/20/2017 CHANEL TOMLINSON MD Ot 785.1 PALPITATIONS 12/20/2017 CHANEL TOMLINSON MD Ot 786.05 SHORTNESS OF BREATH 12/20/2017 CHANEL TOMLINSON MD Ot 786.09 RESPIRATORY ABNORM NEC 12/20/2017 CHANEL TOMLINSON MD Ot V12.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 12/20/2017 CHANEL TOMLINSON MD Ot 242.00 TOX DIF GOITER NO CRISIS 12/20/2017 CHANEL TOMLINSON MD Ot 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 12/20/2017 CHANEL TOMLINSON MD Ot 785.1 PALPITATIONS 12/20/2017 CHANEL TOMLINSON MD Ot 786.05 SHORTNESS OF BREATH 12/20/2017 KAYLIE HAMPTON DO Ot 416.8 CHR PULMON HEART DIS NEC 12/20/2017 KAYLIE HAMPTON DO Ot 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 12/20/2017 KAYLIE HAMPTON DO Ot 786.05 SHORTNESS OF BREATH 12/20/2017 KAYLIE HAMPTON DO Ot 793.19 OTHER NONSPECIFIC ABNORMAL FINDING OF LUISIT[place] 12/20/2017 KAYLIE HAMPTON DO Ot 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 12/20/2017 KAYLIE HAMPTON DO Ot 786.05 SHORTNESS OF BREATH 12/20/2017 KAYLIE HAMPTON DO Ot 786.6 CHEST SWELLING/MASS/LUMP 12/20/2017 SANTIAGO GARZA Ot 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 12/20/2017 MARTIN MUHAMMAD VARNISH REMOVER Ot 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 12/20/2017 MARTIN MUHAMMAD VARNISH REMOVER Ot 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 12/20/2017 MARTIN MUHAMMAD VARNISH REMOVER Ot 242.00 TOX DIF GOITER NO CRISIS 12/20/2017 MARTIN MUHAMMADP Ot V58.69 OTH MED,LT,CURRENT USE 12/20/2017 MARTIN MUHAMMAD VARNISH REMOVER Ot 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 12/20/2017 MARTIN MUHAMMADP Ot E05.00 THYROTOXICOSIS W DIFFUSE GOITER W/O THYR 12/20/2017 MARTIN MUHAMMADP Ot Z79.899 OTHER CUSTODIAL (CURRENT) DRUG THERAPY 12/20/2017 RADHA HALL DO Ot E05.00 THYROTOXICOSIS W DIFFUSE GOITER W/O THYR 12/20/2017 RADHA HALL DO Ot E05.00 THYROTOXICOSIS W DIFFUSE GOITER W/O THYR 12/20/2017 RADHA HALL DO Ot R25.2 CRAMP AND SPASM 12/20/2017 SANTIAGO GARZA Ot 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 12/20/2017 MARTIN MUHAMMADP Ot 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 12/20/2017 MARTIN MUHAMMADP Ot E05.00 THYROTOXICOSIS W DIFFUSE GOITER W/O THYR 12/20/2017 MARTIN MUHAMMADP Ot L27.0 GEN SKIN ERUPTION DUE TO DRUGS AND MEDS 12/20/2017 MARTIN MUHAMMAD VARNISH REMOVER Ot T45.1X5A ADVERSE EFFECT OF ANTINEOPLASTIC AND IMM 12/20/2017 MARTIN MUHAMMAD VARNISH REMOVER Ot Z79.899 OTHER CUSTODIAL (CURRENT) DRUG THERAPY 12/20/2017 HALL DO, RADHA L Ot E05.00 THYROTOXICOSIS W DIFFUSE GOITER W/O THYR 12/20/2017 HALL DO, RADHA L Ot I10 ESSENTIAL (PRIMARY) HYPERTENSION 12/20/2017 Ot 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 12/20/2017 RAFAEL BARTLETT, RADHA L Ot E05.00 THYROTOXICOSIS W DIFFUSE GOITER W/O THYR 12/20/2017 MARTIN MUHAMMAD Ot 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 12/20/2017 RAFAEL BARTLETT, RADHA L Ot E05.00 THYROTOXICOSIS W DIFFUSE GOITER W/O THYR 12/20/2017 MARTIN MUHAMMAD Ot 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 12/20/2017 MARTIN MUHAMMADP Ot C79.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 12/20/2017 MARTIN MUHAMMAD Ot E05.00 THYROTOXICOSIS W DIFFUSE GOITER W/O THYR 12/20/2017 MARTIN MUHAMMAD Ot R21 RASH AND OTHER NONSPECIFIC SKIN ERUPTION 12/20/2017 MARTIN MUHAMMADP Ot 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 12/20/2017 MARTIN MUHAMMAD Ot 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 12/20/2017 MARTIN MUHAMMADP Ot E05.00 THYROTOXICOSIS W DIFFUSE GOITER W/O THYR 12/20/2017 MARTIN MUHAMMAD Ot Z79.899 OTHER CUSTODIAL (CURRENT) DRUG THERAPY 12/20/2017 DAVI SMITH, CHANEL Landin Ot E05.00 THYROTOXICOSIS W DIFFUSE GOITER W/O THYR 12/20/2017 RAFAEL BARTLETT, RADHA L Ot E05.00 THYROTOXICOSIS W DIFFUSE GOITER W/O THYR 12/20/2017 RAFAEL BARTLETT, RADHA L Ot M54.2 CERVICALGIA 12/20/2017 RAFAEL BARTLETT, RADHA L Ot E05.00 THYROTOXICOSIS W DIFFUSE GOITER W/O THYR 12/20/2017 RAFAEL BARTLETT, RADHA L Ot E05.00 THYROTOXICOSIS W DIFFUSE GOITER W/O THYR 12/20/2017 MARTIN MUHAMMADP Ot 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 12/20/2017 SANTIAGO GARZA Ot 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 12/20/2017 SANTIAGO GARZA Ot R42 DIZZINESS AND GIDDINESS 12/20/2017 Ot 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 12/20/2017 HALL DO, RADHA L Ot E05.00 THYROTOXICOSIS W DIFFUSE GOITER W/O THYR 12/20/2017 HALL DO, RADHA L Ot E05.00 THYROTOXICOSIS W DIFFUSE GOITER W/O THYR 12/20/2017 MARTIN MUHAMMADP Ot 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 12/20/2017 MARTIN MUHAMMADP Ot I25.10 ATHSCL HEART DISEASE OF [place] CORONARY 12/20/2017 MARTIN MUHAMMADP Ot 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 PULMONARY HYPERTENSION 12/20/2017 MARTIN MUHAMMADP Ot 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 12/20/2017 MARTIN MUHAMMAD VARNISH REMOVER Ot 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 12/20/2017 MARTIN MUHAMMAD Ot R52 PAIN, UNSPECIFIED 12/20/2017 SANTIAGO GARZA Ot 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 12/20/2017 SANTIAGO GARZA Ot Z51.11 ENCOUNTER FOR ANTINEOPLASTIC CHEMOTHERAP 12/20/2017 LATRICE EUBANKS Ot 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 12/20/2017 LATRICE EUBANKS Ot I25.10 ATHSCL HEART DISEASE OF [place] CORONARY 12/20/2017 LATRICE EUBANKS Ot R00.2 PALPITATIONS 12/20/2017 LATRICE EUBANKS Ot R06.02 SHORTNESS OF BREATH 12/20/2017 MARTIN MUHAMMADP Ot 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 12/20/2017 MARTIN MUHAMMAD VARNISH REMOVER Ot I26.99 OTHER PULMONARY EMBOLISM WITHOUT ACUTE C 12/20/2017 MARTIN MUHAMMAD VARNISH REMOVER Ot K76.89 OTHER SPECIFIED DISEASES OF LIVER 12/20/2017 MARTIN MUHAMMAD VARNISH REMOVER Ot R91.8 OTHER NONSPECIFIC ABNORMAL FINDING OF LUISITO 12/20/2017 RADHA HALL DO Ot E03.2 HYPOTHYROIDISM DUE TO MEDS AND OTH EXOGE 12/20/2017 KAYLASANTIAGO Ot 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 [facility] 12/20/2017 MEHUL SMITH, MANUEL Amaral Ot R31.9 HEMATURIA, UNSPECIFIED 12/20/2017 KAYLASANTIAGO Ot 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 [facility] 12/20/2017 KAYLASANTIAGO Ot 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 NEOPLASM OF UPPER LOBE, RIGHT 12/20/2017 SANTIAGO GARZA Ot 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 12/20/2017 SANTIAGO GARZA Ot 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 12/20/2017 SANTIAGO GARZA Ot E05.00 THYROTOXICOSIS W DIFFUSE GOITER W/O THYR 12/20/2017 SANTIAGO GARZA Ot E80.6 OTHER DISORDERS OF BILIRUBIN METABOLISM 12/20/2017 SANTIAGO GARZA Ot I25.10 ATHSCL HEART DISEASE OF [place] CORONARY 12/20/2017 SANTIAGO GARZA Ot I27.20 PULMONARY HYPERTENSION, UNSPECIFIED 12/20/2017 SANTIAGO GARZA Ot Z79.01 CUSTODIAL (CURRENT) USE OF 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 12/20/2017 SANTIAGO GARZA Ot 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 12/20/2017 SANTIAGO GARZA Ot Z82.49 FAMILY HX OF ISCHEM HEART DIS AND OTH DI 12/20/2017 SANTIAGO GARZA Ot 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 12/20/2017 SANTIAGO GARZA Ot 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 [facility] 12/20/2017 SANTIAGO GARZA Ot 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 12/20/2017 SANTIAGO GARZA Ot M19.011 PRIMARY OSTEOARTHRITIS, RIGHT SHOULDER 12/20/2017 SANTIAGO GARZA Ot M89.9 DISORDER OF BONE, UNSPECIFIED 12/20/2017 MARTIN MUHAMMAD VARNISH REMOVER Ot 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 [facility] 12/20/2017 ANSLEY MUHAMMADHEATHER Howard VARNISH REMOVER Ot C79.51 SECONDARY MALIGNANT NEOPLASM OF BONE 12/20/2017 ANSLEY MUHAMMADHEATHER Lawrence VARNISH REMOVER Ot G93.89 OTHER SPECIFIED DISORDERS OF BRAIN 12/20/2017 ANSLEY MUHAMMADHEATHER Howard VARNISH REMOVER Ot 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 12/20/2017 SANTIAGO GARZA Ot 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 [facility] 12/20/2017 SANTIAGO GARZA Ot 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 12/20/2017 SANTIAGO GARZA Ot M19.011 PRIMARY OSTEOARTHRITIS, RIGHT SHOULDER 12/20/2017 SANTIAGO GARZA Ot M89.9 DISORDER OF BONE, UNSPECIFIED 12/20/2017 SANTIAGO GARZA Ot 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 NEOPLASM OF UPPER LOBE, RIGHT 12/20/2017 SANTIAGO GARZA Ot 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 12/20/2017 SANTIAGO GARZA Ot 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 12/20/2017 SANTIAGO GARZA Ot E05.00 THYROTOXICOSIS W DIFFUSE GOITER W/O THYR 12/20/2017 SANTIAGO GARZA Ot E80.6 OTHER DISORDERS OF BILIRUBIN METABOLISM 12/20/2017 SANTIAGO GARZA Ot I25.10 ATHSCL HEART DISEASE OF [place] CORONARY 12/20/2017 SANTIAGO GARZA Ot I27.20 PULMONARY HYPERTENSION, UNSPECIFIED 12/20/2017 SANTIAGO GARZA Ot Z79.01 CUSTODIAL (CURRENT) USE OF 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 12/20/2017 SANTIAGO GARZA Ot 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 12/20/2017 SANTIAGO GARZA Ot Z82.49 FAMILY HX OF ISCHEM HEART DIS AND OTH DI 12/20/2017 SANTIAGO GARZA Ot 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 12/20/2017 SANTIAGO GARZA Ot 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 [facility] 12/20/2017 MEHUL SMITH, MANUEL Amaral Ot R31.9 HEMATURIA, UNSPECIFIED 12/20/2017 SANTIAGO GARZA Ot 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 [facility] 12/20/2017 RADHA HALL DO Ot E03.2 HYPOTHYROIDISM DUE TO MEDS AND OTH EXOGE 12/20/2017 MEHUL SMITH, MANUEL Amaral Ot V76.12 OTH SCREEN MAMMO-MALIGN NEOPLASM OF HEIDI 12/20/2017 CHANEL TOMLINSNO MD Ot 242.00 TOX DIF GOITER NO CRISIS 12/20/2017 CHANEL TOMLINSON MD Ot 401.9 HYPERTENSION NOS 12/20/2017 CHANEL TOMLINSON MD Ot 729.5 PAIN IN LIMB 12/20/2017 CHANEL TOMLINSON MD Ot 785.1 PALPITATIONS 12/20/2017 CHANEL TOMLINSON MD Ot 786.05 SHORTNESS OF BREATH 12/20/2017 CHANEL TOMLINSON MD Ot 786.09 RESPIRATORY ABNORM NEC 12/20/2017 CHANEL TOMLINSON MD Ot V12.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 12/20/2017 CHANEL TOMLINSON MD Ot 242.00 TOX DIF GOITER NO CRISIS 12/20/2017 CHANEL TOMLINSON MD Ot 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 12/20/2017 CHANEL TOMLINSON MD Ot 785.1 PALPITATIONS 12/20/2017 CHANEL TOMLINSON MD Ot 786.05 SHORTNESS OF BREATH 12/20/2017 KAYLIE HAMPTON DO Ot 416.8 CHR PULMON HEART DIS NEC 12/20/2017 KAYLIE HAMPTON DO Ot 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 12/20/2017 KAYLIE HAMPTON DO Ot 786.05 SHORTNESS OF BREATH 12/20/2017 KAYLIE HAMPTON DO Ot 793.19 OTHER NONSPECIFIC ABNORMAL FINDING OF LUISITO 12/20/2017 KAYLIE HAMPTON DO Ot 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 12/20/2017 KAYLIE HAMPTON DO Ot 786.05 SHORTNESS OF BREATH 12/20/2017 KAYLIE HAMPTON DO Ot 786.6 CHEST SWELLING/MASS/LUMP 12/20/2017 SANTIAGO GARZA Ot 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 12/20/2017 MARTIN MUHAMMAD VARNISH REMOVER Ot 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 12/20/2017 MARTIN MUHAMMAD VARNISH REMOVER Ot 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 12/20/2017 MARTIN MUHAMMAD VARNISH REMOVER Ot 242.00 TOX DIF GOITER NO CRISIS 12/20/2017 MARTIN MUHAMMAD Ot V58.69 OTH MED,LT,CURRENT USE 12/20/2017 MARTIN MUHAMMAD VARNISH REMOVER Ot 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 12/20/2017 MARTIN MUHAMMADP Ot E05.00 THYROTOXICOSIS W DIFFUSE GOITER W/O THYR 12/20/2017 MARTIN MUHAMMAD VARNISH REMOVER Ot 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 12/20/2017 RAFAEL BARTLETT, RADHA L Ot E05.00 THYROTOXICOSIS W DIFFUSE GOITER W/O THYR 12/20/2017 RAFAEL BARTLETT, RADHA L Ot E05.00 THYROTOXICOSIS W DIFFUSE GOITER W/O THYR 12/20/2017 RAFAEL BARTLETT RADHA L Ot R25.2 CRAMP AND SPASM 12/20/2017 SANTIAGO GARZA Ot 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 12/20/2017 MARTIN MUHAMMADP Ot 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 12/20/2017 MARTIN MUHAMMADP Ot E05.00 THYROTOXICOSIS W DIFFUSE GOITER W/O THYR 12/20/2017 MARTIN MUHAMMADP Ot L27.0 GEN SKIN ERUPTION DUE TO DRUGS AND MEDS 12/20/2017 MARTIN MUHAMMAD Ot T45.1X5A ADVERSE EFFECT OF ANTINEOPLASTIC AND IMM 12/20/2017 MARTIN MUHAMMADP Ot 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 12/20/2017 RAFAEL BARTLETT RADHA L Ot E05.00 THYROTOXICOSIS W DIFFUSE GOITER W/O THYR 12/20/2017 JOIE HALL DOISON L Ot I10 ESSENTIAL (PRIMARY) HYPERTENSION 12/20/2017 Ot 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 12/20/2017 RAFAEL BARTLETT, RADHA L Ot E05.00 THYROTOXICOSIS W DIFFUSE GOITER W/O THYR 12/20/2017 MARTIN MUHAMMAD VARNISH REMOVER Ot 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 12/20/2017 RAFAEL BARTLETT, RADHA L Ot E05.00 THYROTOXICOSIS W DIFFUSE GOITER W/O THYR 12/20/2017 MARTIN MUHAMMAD Ot 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 12/20/2017 MARTIN MUHAMMADP Ot C79.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 12/20/2017 MARTIN MUHAMMADP Ot E05.00 THYROTOXICOSIS W DIFFUSE GOITER W/O THYR 12/20/2017 MARTIN MUHAMMAD Ot R21 RASH AND OTHER NONSPECIFIC SKIN ERUPTION 12/20/2017 MARTIN MUHAMMAD Ot Z79.899 OTHER CUSTODIAL (CURRENT) DRUG THERAPY 12/20/2017 MARTIN MUHAMMAD Ot 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 12/20/2017 MARTIN MUHAMMAD Ot E05.00 THYROTOXICOSIS W DIFFUSE GOITER W/O THYR 12/20/2017 MARTIN MUHAMMADP Ot 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 12/20/2017 DAVI SMITH, CHANEL Landin Ot E05.00 THYROTOXICOSIS W DIFFUSE GOITER W/O THYR 12/20/2017 RAFAEL BARTLETT, RADHA L Ot E05.00 THYROTOXICOSIS W DIFFUSE GOITER W/O THYR 12/20/2017 RAFAEL BARTLETT, RADHA L Ot M54.2 CERVICALGIA 12/20/2017 RAFAEL BARTLETT, RADHA L Ot E05.00 THYROTOXICOSIS W DIFFUSE GOITER W/O THYR 12/20/2017 RAFAEL BARTLETT, RADHA L Ot E05.00 THYROTOXICOSIS W DIFFUSE GOITER W/O THYR 12/20/2017 MARTIN MUHAMMADP Ot 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 12/20/2017 SANTIAGO GARZA Ot 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 12/20/2017 SANTIAGO GARZA Ot R42 DIZZINESS AND GIDDINESS 12/20/2017 Ot 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 12/20/2017 JOIE HALL DOISON L Ot E05.00 THYROTOXICOSIS W DIFFUSE GOITER W/O THYR 12/20/2017 RADHA HALL DO L Ot E05.00 THYROTOXICOSIS W DIFFUSE GOITER W/O THYR 12/20/2017 MARTIN MUHAMMAD VARNISH REMOVER Ot 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 12/20/2017 MARTIN MUHAMMAD VARNISH REMOVER Ot I25.10 ATHSCL HEART DISEASE OF [place] CORONARY 12/20/2017 MARTIN MUHAMMAD VARNISH REMOVER Ot 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 PULMONARY HYPERTENSION 12/20/2017 MARTIN MUHAMMADP Ot 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 12/20/2017 MARTIN MUHAMMADP Ot 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 12/20/2017 MARTIN MUHAMMAD Ot R52 PAIN, UNSPECIFIED 12/20/2017 SANTIAGO GARZA Ot 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 12/20/2017 SANTIAGO GARZA Ot Z51.11 ENCOUNTER FOR ANTINEOPLASTIC CHEMOTHERAP 12/20/2017 LATRICE EUBANKS Ot 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 12/20/2017 LATRICE EUBANKS Ot I25.10 ATHSCL HEART DISEASE OF [place] CORONARY 12/20/2017 LATRICE EUBANKS Ot R00.2 PALPITATIONS 12/20/2017 LATRICE EUBANKS Ot R06.02 SHORTNESS OF BREATH 12/20/2017 MARTIN MUHAMMAD Ot 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 12/20/2017 MARTIN MUHAMMAD Ot I26.99 OTHER PULMONARY EMBOLISM WITHOUT ACUTE C 12/20/2017 MARTIN MUHAMMAD Ot K76.89 OTHER SPECIFIED DISEASES OF LIVER 12/20/2017 MARTIN MUHAMMAD Ot R91.8 OTHER NONSPECIFIC ABNORMAL FINDING OF LUISITO 12/20/2017 RADHA HALL DO Ot E03.2 HYPOTHYROIDISM DUE TO MEDS AND OTH EXOGE 12/20/2017 SANTIAGO GARZA Ot 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 12/20/2017 MEHUL SMITH, MANUEL Amaral Ot R31.9 HEMATURIA, UNSPECIFIED 12/20/2017 SANTIAGO GARZA Cristin Ot 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 12/20/2017 SANTIAGO GARZA Cristin Ot 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 NEOPLASM OF UPPER LOBE, RIGHT 12/20/2017 SANTIAGO GARZA Cristin Ot 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 12/20/2017 KAYLA, SANTIAGO Amaral Ot 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 12/20/2017 KAYLA, SANTIAGO Amaral Ot E05.00 THYROTOXICOSIS W DIFFUSE GOITER W/O THYR 12/20/2017 KAYLA, SANTIAGO Amaral Ot E80.6 OTHER DISORDERS OF BILIRUBIN METABOLISM 12/20/2017 SANTIAGO GARZA Ot I25.10 ATHSCL HEART DISEASE OF [place] CORONARY 12/20/2017 KAYLASANTIAGO Ot I27.20 PULMONARY HYPERTENSION, UNSPECIFIED 12/20/2017 KAYLAKELLEEMEENAKSHI Cristin Ot Z79.01 CUSTODIAL (CURRENT) USE OF 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 12/20/2017 KAYLASANTIAGO Ot Z79.899 OTHER CUSTODIAL (CURRENT) DRUG THERAPY 12/20/2017 KAYLA SANTIAGO Amaral Ot Z82.49 FAMILY HX OF ISCHEM HEART DIS AND OTH DI 12/20/2017 KAYLAKELLEEMEENAKSHI Cristin Ot 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 12/20/2017 KAYLASANTIAGO Ot 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 [facility] 12/20/2017 KAYLA KELLEEMEENAKSHI Cristin Ot 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 12/20/2017 KAYLA, SANTIAGO Amaral Ot M19.011 PRIMARY OSTEOARTHRITIS, RIGHT SHOULDER 12/20/2017 KAYLASANTIAGO Ot M89.9 DISORDER OF BONE, UNSPECIFIED 12/20/2017 MARTIN MUHAMMAD VARNISH REMOVER Ot 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 [facility] 12/20/2017 MARTIN MUHAMMAD VARNISH REMOVER Ot C79.51 SECONDARY MALIGNANT NEOPLASM OF BONE 12/20/2017 MARTIN MUHAMMAD VARNISH REMOVER Ot G93.89 OTHER SPECIFIED DISORDERS OF BRAIN 12/20/2017 MARTIN MUHAMMAD VARNISH REMOVER Ot 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 12/27/2017 SANTIAGO GARZA Ot 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 NEOPLASM OF UPPER LOBE, RIGHT 12/27/2017 SANTIAGO GARZA Cristin Ot E05.00 THYROTOXICOSIS W DIFFUSE GOITER W/O THYR 12/27/2017 SANTIAGO GARZA Cristin Ot Z79.899 OTHER CUSTODIAL (CURRENT) DRUG THERAPY 12/28/2017 SANTIAGO GARZA Cristin Ot 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 NEOPLASM OF UPPER LOBE, RIGHT 12/28/2017 KAYLA KELLEEMEENAKSHI Cristin Ot 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 12/28/2017 KAYLA KELLEEMEENAKSHI Cristin Ot 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 12/28/2017 SANTIAGO GARZA Cristin Ot E05.00 THYROTOXICOSIS W DIFFUSE GOITER W/O THYR 12/28/2017 KAYLA KELLEEMEENAKSHI Cristin Ot E80.6 OTHER DISORDERS OF BILIRUBIN METABOLISM 12/28/2017 KAYLA, SANTIAGO N Ot I25.10 ATHSCL HEART DISEASE OF [place] CORONARY 12/28/2017 KAYLASANTIAGO Ot I27.20 PULMONARY HYPERTENSION, UNSPECIFIED 12/28/2017 KAYLA KELLEEMEENAKSHI Cristin Ot R82.99 OTHER ABNORMAL FINDINGS IN URINE 12/28/2017 SANTIAGO GARZA Cristin Ot Z51.0 ENCOUNTER FOR ANTINEOPLASTIC RADIATION T 12/28/2017 SANTIAGO GARZA Cristin Ot Z79.01 CUSTODIAL (CURRENT) USE OF 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 12/28/2017 KAYLA KELLEEMEENAKSHI Cristin Ot Z79.899 OTHER CUSTODIAL (CURRENT) DRUG THERAPY 12/28/2017 SANTIAGO GARZA Cristin Ot Z82.49 FAMILY HX OF ISCHEM HEART DIS AND OTH DI 12/28/2017 KAYLA KELLEEMEENAKSHI Cristin Ot 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 12/29/2017 SANTIAGO GARZA Cristin Ot 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 NEOPLASM OF UPPER LOBE, RIGHT 12/29/2017 KAYLA KELLEEMEENAKSHI Cristin Ot 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 12/29/2017 KAYLA KELLEEMEENAKSHI Cristin Ot 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 12/29/2017 SANTIAGO GARZA Cristin Ot E05.00 THYROTOXICOSIS W DIFFUSE GOITER W/O THYR 12/29/2017 KAYLA KELLEEMEENAKSHI Cristin Ot E80.6 OTHER DISORDERS OF BILIRUBIN METABOLISM 12/29/2017 KAYLASANTIAGO Ot I25.10 ATHSCL HEART DISEASE OF [place] CORONARY 12/29/2017 SANTIAGO GARZA Ot I27.20 PULMONARY HYPERTENSION, UNSPECIFIED 12/29/2017 SANTIAGO GARZA Cristin Ot R82.99 OTHER ABNORMAL FINDINGS IN URINE 12/29/2017 SANTIAGO GARZA Cristin Ot Z51.0 ENCOUNTER FOR ANTINEOPLASTIC RADIATION T 12/29/2017 SANTIAGO GARZA Cristin Ot 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 12/29/2017 SANTIAGO GARZA Cristin Ot 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 12/29/2017 SANTIAGO GARZA Cristin Ot Z82.49 FAMILY HX OF ISCHEM HEART DIS AND OTH DI 12/29/2017 SANTIAGO GARZA Cristin Ot 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 12/30/2017 RADHA HALL DO Ot E03.2 HYPOTHYROIDISM DUE TO MEDS AND OTH EXOGE 12/30/2017 SANTIAGO GARZA Cristin Ot 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 [facility] 12/30/2017 KAYLA KELLEEMEENAKSHI Cristin Ot 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 [facility] 12/30/2017 SANTIAGO GARZA Cristin Ot 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 [facility] 12/30/2017 SANTIAGO GARZA Cristin Ot 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 12/30/2017 SANTIAGO GARZA Cristin Ot M19.011 PRIMARY OSTEOARTHRITIS, RIGHT SHOULDER 12/30/2017 SANTIAGO GARZA Cristin Ot M89.9 DISORDER OF BONE, UNSPECIFIED 12/30/2017 MARTIN MUHAMMAD VARNISH REMOVER Ot 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 [facility] 12/30/2017 MARTIN MUHAMMAD VARNISH REMOVER Ot C79.51 SECONDARY MALIGNANT NEOPLASM OF BONE 12/30/2017 MARTIN MUHAMMAD VARNISH REMOVER Ot G93.89 OTHER SPECIFIED DISORDERS OF BRAIN 12/30/2017 MARTIN MUHAMMAD VARNISH REMOVER Ot 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 01/12/2018 KAYLA, SANTIAGO Amaral Ot 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 NEOPLASM OF UPPER LOBE, RIGHT 01/12/2018 KAYLA, SANTIAGO Amaral Ot 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 01/12/2018 SANTIAGO GARZA Ot 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 01/12/2018 SANTIAGO GARZA N Ot E05.00 THYROTOXICOSIS W DIFFUSE GOITER W/O THYR 01/12/2018 KAYLA KELLEEMEENAKSHI N Ot E80.6 OTHER DISORDERS OF BILIRUBIN METABOLISM 01/12/2018 SANTIAGO GARZA N Ot I25.10 ATHSCL HEART DISEASE OF [place] CORONARY 01/12/2018 SANTIAGO GARZA N Ot I27.20 PULMONARY HYPERTENSION, UNSPECIFIED 01/12/2018 SANTIAGO GARZA N Ot Z79.01 CUSTODIAL (CURRENT) USE OF 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 01/12/2018 KAYLA SANTIAGO N Ot Z79.899 OTHER CUSTODIAL (CURRENT) DRUG THERAPY 01/12/2018 KAYLA KELLEEMEENAKSHI N Ot Z82.49 FAMILY HX OF ISCHEM HEART DIS AND OTH DI 01/12/2018 KAYLA KELLEEMEENAKSHI N Ot 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 01/12/2018 KAYLA, KELLEEMEENAKSHI N Ot 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 NEOPLASM OF UPPER LOBE, RIGHT 01/12/2018 KAYLA, SANTIAGO N Ot 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 01/12/2018 KAYLA, SANTIAGO N Ot 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 01/12/2018 KAYLA KELLEEMEENAKSHI N Ot E05.00 THYROTOXICOSIS W DIFFUSE GOITER W/O THYR 01/12/2018 SANTIAGO GARZA N Ot E80.6 OTHER DISORDERS OF BILIRUBIN METABOLISM 01/12/2018 SANTIAGO GARZA N Ot I25.10 ATHSCL HEART DISEASE OF [place] CORONARY 01/12/2018 KAYLA KELLEEMEENAKSHI N Ot I27.20 PULMONARY HYPERTENSION, UNSPECIFIED 01/12/2018 KAYLA KELLEEMEENAKSHI N Ot Z79.01 CUSTODIAL (CURRENT) USE OF 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 01/12/2018 KAYLA SANTIAGO N Ot Z79.899 OTHER CUSTODIAL (CURRENT) DRUG THERAPY 01/12/2018 KAYLA KELLEEMEENAKSHI N Ot Z82.49 FAMILY HX OF ISCHEM HEART DIS AND OTH DI 01/12/2018 KAYLA SANTIAGO N Ot 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 01/14/2018 KAYLA KELLEEMEENAKSHI N Ot 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 NEOPLASM OF UPPER LOBE, RIGHT 01/14/2018 KAYLA, SANTIAGO N Ot E05.00 THYROTOXICOSIS W DIFFUSE GOITER W/O THYR 01/14/2018 SANTIAGO GARZA N Ot Z79.899 OTHER CUSTODIAL (CURRENT) DRUG THERAPY Procedures Code Description [place] [address] ROUTINE VENIPUNCTURE 06/11/2013 96986 TSH 06/11/2013 94648 T4 FREE 06/13/2013 20805 T3 TOTAL 06/13/2013 61729 ROUTINE VENIPUNCTURE 07/24/2013 38232 BONE MINERAL DENSITY, HEEL US (IN HOUSE) 07/24/2013 13645 MAMMOGRAM, SCREENING 07/24/2013 27718 CBC 07/25/2013 GENERAL S NOLAN GUZMAN 08/21/2013 69202 HEMOCCULT 08/21/2013 48040 HEMOCCULT 08/21/2013 71954 HEMOCCULT 08/29/2013 02235 HEMOCCULT 08/29/2013 82621 ROUTINE VENIPUNCTURE 11/08/2013 84264 THYROID IMAGING WITH UPTAKE 11/08/2013 57656 CBC 11/08/2013 22238 LIPID PANEL 11/08/2013 05404 T4 FREE 11/08/2013 75846 TSH 11/08/2013 84548 T3 TOTAL 11/08/2013 24326 ROUTINE VENIPUNCTURE 04/12/2014 3075400 GFR CALC (RESULT ONLY) 04/12/2014 51289 CMP 04/12/2014 71916 T4 FREE 04/12/2014 56669 TSH 04/12/2014 04922 T3 TOTAL 04/12/2014 ENDOCRINO RADHA HALL 04/17/2014 72587 UA W/ CULTURE IF INDICATED 05/24/2014 27937 CULTURE URINE 05/24/2014 15358 ROUTINE VENIPUNCTURE 05/31/2014 12412 T4 FREE 05/31/2014 39827 TSH 05/31/2014 25077 T3 TOTAL 05/31/2014 CARDIOLOG CHANEL TOMLINSON 10/01/2014 34583 EKG, TRACING (IN-HOUSE) 10/01/2014 Results Test Result Range THYROID STIMULATING HORMONE [...] urinalysis with reflex to culture NO NRG Automated blood complete blood count (hemogram) panel - 09/12/17 08:19 Blood leukocytes automated count (number/volume) 5.0 10*3/uL 4.3-11.0 Blood erythrocytes automated count (number/volume) 4.72 10*6/uL 4.35-5.85 Venous blood hemoglobin measurement (mass/volume) 13.7 g/dL 11.5-16.0 Blood hematocrit (volume fraction) 39 % 35-52 Automated erythrocyte mean corpuscular volume 83 [foz_us] 80-99 Automated erythrocyte mean corpuscular hemoglobin (mass per erythrocyte) 29 pg 25-34 Automated erythrocyte mean corpuscular hemoglobin concentration measurement ( mass/volume) 35 g/dL 32-36 Automated erythrocyte distribution width ratio 13.6 % 10.0-14.5 Automated blood platelet count (count/volume) 159 10*3/uL 130-400 Automated blood platelet mean volume measurement 10.4 [foz_us] 7.4-10.4 PT panel in platelet poor plasma by coagulation assay - 09/12/17 08:19 Prothrombin time (PT) in platelet poor plasma by coagulation assay 13.3 s 12.2-14.7 INR in platelet poor plasma or blood by coagulation assay 1.0 0.8-1.4 Activated partial thromboplastin time (aPTT) in platelet poor plasma bycoagulation assay - 09/12/17 08:19 Activated partial thromboplastin time (aPTT) in platelet poor plasma bycoagulation assay 31 s 24-35 Bacterial urine culture - 12/27/17 08:50 Bacterial urine culture SEE COMMEN NRG COLONY COUNT . NRG FTX;REPORTABLE 40,000 CFU/ML NRG FREE TEXT ENTRY 2 RML REPORTED AT 1205, 7 NRG FREE TEXT ENTRY 3 RML SUSCEPTIBILITY 718, 0905 NRG RML Sensitivity Panel - 12/27/17 08:50 Gentamicin susceptibility test by minimum inhibitory concentration < = NRG Trimethoprim/sulfamethoxazole susceptibility test by minimum inhibitoryconcentration <= NRG Levofloxacin susceptibility test by minimum inhibitory concentration <= NRG Ampicillin susceptibility test by minimum inhibitory concentration < = NRG Cefazolin susceptibility test by minimum inhibitory concentration 2 NRG Ceftriaxone susceptibility test by minimum inhibitory concentration <= NRG Ciprofloxacin susceptibility test by minimum inhibitory concentration <= NRG Meropenem susceptibility test by minimum inhibitory concentration < = NRG Nitrofurantoin susceptibility test by minimum inhibitory concentration <= NRG Amoxicillin and clavulanate potassium susc DEMI <= NRG Lipid 1996 panel - 01/27/18 06:56 Serum or plasma triglyceride measurement (mass/volume) 94 mg/dL <150 Serum or plasma cholesterol measurement (mass/volume) 242 mg/dL < 200 Serum or plasma cholesterol in HDL measurement (mass/volume) 53 mg/ dL 40-60 Cholesterol in LDL [mass/volume] in serum or plasma by direct assay 175 mg/dL 1-129 Serum or plasma cholesterol in VLDL measurement (mass/volume) 19 mg/ dL 5-40 Encounters ACCT No. Visit Date/Time Discharge Status Pt. Type Provider Facility Loc./Unit Complaint [id number] 01/11/2018 14:15:00 01/11/2018 23:59:59 CLS Outpatient SANTIAGO GARZA Via [facility] ONC [id number] 12/27/2017 08:37:00 12/28/2017 00:01:00 DIS Outpatient SANTIAGO GARZA [facility] ONC [id number] 11/19/2017 09:57:00 11/19/2017 23:59:59 CLS Outpatient MARTIN MUHAMMAD VARNISH REMOVER [facility] RAD DIZZINESS [id number] 10/06/2017 11:28:00 10/06/2017 23:59:59 CLS Outpatient SANTIAGO GARZA Via [facility] RAD M25.511 RIGHT SHOULDER PAIN [id number] 09/12/2017 07:43:00 09/12/2017 14:50:00 DIS Outpatient SANTIAGO GARZA Via [facility] RAD LUNG CA [id number] 09/05/2017 12:55:00 09/11/2017 00:01:00 DIS Outpatient SANTIAGO GARZA Cristin [facility] ONC [id number] 09/09/2017 10:22:00 09/09/2017 23:59:59 CLS Outpatient SANTIAGO GARZA Cristin Via [facility] CARD C34.90 LUNG CA [id number] 08/31/2017 08:46:00 08/31/2017 23:59:59 CLS Outpatient MANUEL CARVER MD [facility] LAB [id number] 07/07/2017 11:20:00 07/07/2017 23:59:59 CLS Outpatient KAYLASANTIAGO Cristin [facility] CARD LUNG CANCER C34.90 [id number] 06/10/2017 09:47:00 06/10/2017 23:59:59 CLS Outpatient RADHA HALL DO [facility] LAB [id number] 06/10/2017 08:26:00 06/10/2017 12:41:00 DIS Outpatient CHRISTOPHER OLIVA MD [facility] ONC [id number] 04/11/2017 14:47:00 05/11/2017 08:30:00 DIS Outpatient KAYLASANTIAGO Cristin [facility] ONC [id number] 03/14/2017 10:56:00 03/26/2017 00:01:00 DIS Outpatient KAYLAKELLEEMEENAKSHI Amaral [facility] ONC [id number] 03/07/2017 10:58:00 03/07/2017 23:59:59 CLS Outpatient MARTIN MUHAMMAD [facility] RAD LUNG CA C34.81 [id number] 02/07/2017 10:19:00 03/03/2017 00:01:00 DIS Outpatient SANTIAGO GARZA [facility] ONC [id number] 01/07/2017 07:25:00 01/07/2017 23:59:59 CLS Outpatient LATRICE EUBANKS [facility] LAB I25.10 C34.81 R00.2 [id number] 01/07/2017 07:21:00 01/07/2017 23:59:59 CLS Outpatient SANTIAGO GARZA [facility] LAB C34.81 Z51.11 [id number] 11/11/2016 10:14:00 11/28/2016 00:01:00 DIS Outpatient SANTIAGO GARZA [facility] ONC [id number] 11/11/2016 13:29:00 11/11/2016 23:59:59 CLS Outpatient MARTIN MUHAMMAD VARNISH REMOVER [facility] RAD R05 COUGH [id number] 11/01/2016 10:46:00 11/01/2016 23:59:59 CLS Outpatient MARTIN MUHAMMAD VARNISH REMOVER [facility] CARD I27.2,Z51.81,I25.10 [id number] 09/27/2016 09:22:00 09/27/2016 23:59:59 CLS Outpatient JOIE HALL DOISON L [facility] LAB [id number] 09/16/2016 09:01:00 09/16/2016 16:05:00 DIS Outpatient SANTIAGO GARZA [facility] RAD LUNG CA,MASS OF UPPER LOBE OF RT LUNG [id number] 07/05/2016 08:21:00 07/05/2016 23:59:59 CLS Outpatient JOIE HALL DOISON L [facility] LAB GRAVES DISEASE [id number] 06/07/2016 10:18:00 06/27/2016 00:01:00 DIS Outpatient SANTIAGO GARZA [facility] ONC [id number] 06/09/2016 12:41:00 06/09/2016 23:59:59 CLS Outpatient SANTIAGO GARZA [facility] RAD DIZZINESS,NON SMALL CELL LUNG CA [id number] 06/04/2016 11:00:00 06/04/2016 23:59:59 CLS Outpatient MARTIN MUHAMMAD VARNISH REMOVER [facility] CARD LUNG CANCER [id number] 03/29/2016 09:04:00 03/29/2016 23:59:59 CLS Outpatient JOIE HALL DOISON L [facility] LAB [id number] 01/14/2016 10:17:00 02/17/2016 00:01:00 DIS Outpatient SANTIAGO GARZA [facility] ONC [id number] 02/02/2016 08:19:00 02/02/2016 23:59:59 CLS Outpatient RADHA HALL DO L [facility] LAB GRAVES DRIVES [id number] 12/30/2015 07:30:00 12/30/2015 23:59:59 CLS Outpatient CHANEL TOMLINSON MD [facility] RAD PALPITATIONS,PULMONARY ARTERY,SOB [id number] 12/12/2015 13:16:00 12/12/2015 23:59:59 CLS Outpatient RADHA HALL DO [facility] RAD NECK PAIN,GRAVES DISEASE [id number] 11/20/2015 08:49:00 11/20/2015 23:59:59 CLS Outpatient MARTIN MUHAMMAD S VARNISH REMOVER [facility] ONC [id number] 11/19/2015 08:27:00 11/19/2015 23:59:59 CLS Outpatient MARTIN MUHAMMAD S VARNISH REMOVER [facility] ONC [id number] 10/08/2015 09:20:00 10/12/2015 00:01:00 DIS Outpatient SANTIAGO GARZA [facility] ONC [id number] 10/07/2015 08:33:00 10/07/2015 23:59:59 CLS Outpatient RADHA HALL DO [facility] LAB [id number] 09/30/2015 10:39:00 09/30/2015 23:59:59 CLS Outpatient ANSLEY MUHAMMADAH S VARNISH REMOVER [facility] CARD LUNG CA [id number] 09/12/2015 10:38:00 09/12/2015 23:59:59 CLS Outpatient MARTIN MUHAMMAD S VARNISH REMOVER [facility] ONC [id number] 08/21/2015 07:16:00 08/21/2015 23:59:59 CLS Outpatient RADHA HALL DO [facility] LAB GRAVES DISEASE [id number] 07/04/2015 08:29:00 07/04/2015 23:59:59 CLS Outpatient JOIE HALL DOISON L [facility] LAB [id number] 07/04/2015 08:26:00 07/04/2015 23:59:59 CLS Outpatient MARTIN MUHAMMADP [facility] ONC [id number] 05/30/2015 08:30:00 06/26/2015 00:01:00 DIS Outpatient SANTIAGO GARZA [facility] ONC [id number] 05/30/2015 07:55:00 05/30/2015 23:59:59 CLS Outpatient SANTIAGO GARZA [facility] RAD LUNG CANCER [id number] 05/20/2015 08:42:00 05/20/2015 23:59:59 CLS Outpatient RAFAEL DOJOIERADHA L [facility] LAB MUSCLE CRAMPS,GRAVES ' DI [id number] 05/09/2015 12:12:00 05/09/2015 23:59:59 CLS Outpatient RAFAEL DOJOIERADHA L [facility] LAB GRAVES'DI [id number] 04/25/2015 08:31:00 04/25/2015 23:59:59 CLS Outpatient MARTIN MUHAMMAD VARNISH REMOVER [facility] ONC [id number] 03/12/2015 12:19:00 03/26/2015 00:01:00 DIS Outpatient SANTIAGO GARZA [facility] ONC [id number] 02/14/2015 13:20:00 03/10/2015 00:01:00 DIS Outpatient SANTIAGO GARZA [facility] ONC [id number] 02/28/2015 08:16:00 02/28/2015 23:59:59 CLS Outpatient MARTIN MUHAMMAD VARNISH REMOVER [facility] ONC [id number] 01/06/2015 12:22:00 01/06/2015 23:59:59 CLS Outpatient SANTIAGO GARZA [facility] RAD [id number] 12/12/2014 12:04:00 12/12/2014 16:50:00 DIS Outpatient SANTIAGO GARZA [facility] RAD ENLARGED LYMPH NODE [id number] 12/04/2014 09:04:00 12/04/2014 17:40:00 [facility] [id number] 11/11/2014 12:37:00 11/11/2014 23:59:59 CLS Outpatient KAYLIE HAMPTON DO [facility] RAD NODULE [id number] 11/11/2014 10:45:00 11/11/2014 23:59:59 CLS Preadmit KAYLIE HAMPTON DO [facility] RAD LUNG MASS [id number] 11/05/2014 07:41:00 11/05/2014 23:59:59 CLS Outpatient KAYLIE HAMPTON DO [facility] RAD LUNG MASS [id number] 10/31/2014 11:03:00 10/31/2014 23:59:59 CLS Outpatient KAYLIE HAMPTON DO [facility] RAD PULMONARY ARTERY HTN, DVT ,SOB [id number] 10/16/2014 06:36:00 10/16/2014 13:30:00 DIS Outpatient CHANEL TOMLINSON MD [facility] CATH ABNORMAL STRESS ECHO,SOB ,CP,PALPITATIONS,HTP [id number] 10/09/2014 08:15:00 10/09/2014 23:59:59 CLS Outpatient CHANEL TOMLINSON MD [facility] CARD BILAT LEG PAIN,DYSPNEA, HTN [id number] 10/07/2014 08:45:00 10/07/2014 23:59:59 CLS Outpatient CHANEL TOMLINSON MD [facility] CARD PALP, DVT, SOB [id number] 08/03/2013 13:29:00 08/03/2013 23:59:59 CLS Outpatient MANUEL CARVER MD [facility] RAD SCREENING [id number] 01/27/2018 07:23:00 Document Registration [id number] 09/02/2016 10:31:00 Document Registration [id number] 07/18/2015 07:37:00 Document Registration [id number] 10/01/2014 10:35:00 10/01/2014 23:59:59 CLS Outpatient MANUEL CARVER MD [id number] 09/13/2014 09:15:00 09/13/2014 23:59:59 CLS Outpatient MANUEL CARVER MD [id number] 07/03/2014 12:37:00 07/03/2014 23:59:59 CLS Outpatient MORENA DUMONT DDS [id number] 05/31/2014 08:06:00 05/31/2014 23:59:59 CLS Outpatient MANUEL CARVER MD [id number] 05/24/2014 14:53:00 05/24/2014 23:59:59 CLS Outpatient GITA PATTERSON DO [id number] 04/17/2014 14:44:00 04/17/2014 23:59:59 CLS Outpatient MANUEL CARVER MD [id number] 03/20/2014 12:53:00 03/20/2014 23:59:59 CLS Outpatient FLORENCIO DUMONT DDS [id number] 11/12/2013 13:56:00 11/12/2013 23:59:59 CLS Outpatient GITA PATTERSON DO [id number] 11/08/2013 08:23:00 11/08/2013 23:59:59 CLS Outpatient GITA PATTERSON DO [id number] 08/29/2013 11:37:00 08/29/2013 23:59:59 CLS Outpatient MANUEL CARVER MD [id number] 08/21/2013 11:47:00 08/21/2013 23:59:59 CLS Outpatient MANUEL CARVER MD [id number] 07/24/2013 15:51:00 07/24/2013 23:59:59 CLS Outpatient MANUEL CARVER MD [id number] 06/14/2013 14:22:00 06/14/2013 23:59:59 CLS Outpatient MANUEL CARVER MD [id number] 04/20/2013 13:19:00 04/20/2013 23:59:59 [place] [id number] 01/24/2018 14:00:00 01/24/2018 23:59:59 CLS Outpatient MANUEL CARVER MD [facility]
[2018-02-04] MEDS ORDERED: LORazepam INJ 2 MG/ML (ATIVAN) VIAL ONE (14:25)
[2018-02-04] MEDS ORDERED: LORazepam INJ 2 MG/ML (ATIVAN) VIAL IVP PRN (14:30)
[2018-02-04] MEDS: NS IV 1000 ML 1,000 ML IV SCH (14:39)
[2018-02-04] MEDS ORDERED: VANCOMYCIN 1500 MG/NS 500 ML IVPB IV NR ×2 (15:33)
[2018-02-04] MEDS ORDERED: GUAI400T71 PO (17:28)
[2018-02-04] MEDS: APIXABAN 2.5 MG (ELIQUIS) TABLET PO SCH (20:42)
[2018-02-04] MEDS: PIPERACILLIN/TAZO 4.5 GM/D5W 100 ML IV SCH ×2 (20:47)
[2018-02-04] MEDS ORDERED: LEVOTHYROXINE 88 MCG (LEVOTHORID) TAB PO SCH (21:00)
[2018-02-04] MEDS: TIMOLOL MALEATE 0.5% 5 ML (TIMOPTIC) BTL OD SCH (23:14)
[2018-02-05] VITALS (16 sets, daily range): BP systolic 113–143; BP diastolic 58–82
[2018-02-05] MEDS ORDERED: IBUPROFEN 600 MG (MOTRIN) TAB PO PRN
[2018-02-05] MEDS: ACETAMINOPHEN 325 MG TABLET PO PRN ×2 (00:06→09:08)
[2018-02-05] MEDS: PIPERACILLIN/TAZO 4.5 GM/D5W 100 ML IV SCH ×6 (03:51→18:38)
[2018-02-05] MEDS: NS IV 1000 ML 1,000 ML IV SCH ×2 (06:13→17:55)
[2018-02-05 06:19] LABS: BASOPHILS % (AUTO) 0 % (0-10); EOSINOPHILS % (AUTO) 0 % (0-10); HEMATOCRIT 34 % (35-52); HEMOGLOBIN 12.5 G/DL (11.5-16.0); LYMPHOCYTES # (AUTO) 0.9 X 10^3 (1.0-4.0); LYMPHOCYTES % (AUTO) 12 % (12-44); MEAN CORPUSCULAR HEMOGLOBIN 30 PG (25-34); MEAN CORPUSCULAR HGB CONC 37 G/DL (32-36); MEAN CORPUSCULAR VOLUME 81 FL (80-99); MEAN PLATELET VOLUME 8.8 FL (7.4-10.4); MONOCYTES # (AUTO) 0.7 X 10^3 (0.0-1.0); MONOCYTES % (AUTO) 9 % (0-12); NEUTROPHILS # (AUTO) 6.1 X 10^3 (1.8-7.8); NEUTROPHILS % (AUTO) 79 % (42-75); PLATELET COUNT 186 10^3/uL (130-400); WHITE BLOOD COUNT 7.7 10^3/uL (4.3-11.0)
[2018-02-05 06:45] LABS: ALANINE AMINOTRANSFERASE 6 U/L (0-55); ALBUMIN 3.7 GM/DL (3.2-4.5); ALKALINE PHOSPHATASE 72 U/L (40-136); BILIRUBIN,TOTAL 1.8 MG/DL (0.1-1.0); BUN/CREATININE RATIO 7; CALCIUM 8.7 MG/DL (8.5-10.1); CARBON DIOXIDE 25 MMOL/L (21-32); CHLORIDE 102 MMOL/L (98-107); CREATININE SERUM 0.69 MG/DL (0.60-1.30); GFR ESTIMATED > 60; GLUCOSE 111 MG/DL (70-105); POTASSIUM 2.6 MMOL/L (3.6-5.0); SODIUM 136 MMOL/L (135-145); TOTAL PROTEIN 6.3 GM/DL (6.4-8.2)
[2018-02-05] MEDS: RT-ALBUTEROL/IPRATROPIUM 3 ML (DUONEB) VIAL INH SCH ×3 (07:02→19:30)
[2018-02-05 07:08] LABS: FREE T4 (FREE THYROXINE) 1.58 NG/DL (0.70-1.48)
[2018-02-05] MEDS: TIMOLOL MALEATE 0.5% 5 ML (TIMOPTIC) BTL OD SCH ×2 (09:09→20:36)
[2018-02-05] MEDS: APIXABAN 2.5 MG (ELIQUIS) TABLET PO SCH ×2 (09:09→20:36)
[2018-02-05] MEDS ORDERED: VANCOMYCIN 1 GM/NS 250 ML IVPB IV SCH ×2 (15:00)
[2018-02-05] MEDS: KCL 20 MEQ TAB (K-DUR) PO SCH ×2 (15:06→20:36)
--- NOTE | 2018-02-05 17:28 | History & Physicial (CHS) ---
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 Patient was seen on Tuesday in the oncology clinic and give dose of chemo at that time. Patient had normal labs at that time. Son was used as welcome wagon host/hostess. He states that she has been complaining of fatigue and just not feeling good for a few days prior to chemo. He stated that he had called oncology on thr and tuesday and they stated that it was likely 2/2 to chemo. Patient has had increased frequency of urination but denied any dysuria or fever. + night sweats on tuesday. She has never had an episode like this previously with her chemo. Source: patient, family (son was welcome wagon host/hostess) Exam Limitations: no limitations Date seen by provider: Feb 05, 2018 Time Seen by Provider: 14:30 Attending Physician Sagar Zuniga MD PCP Center/[facility] [place] Consult Date of Admission Feb 04, 2018 at 12:30 pm Home Medications Home Medications Reviewed patient Home Medication Reconciliation performed by pharmacy medication reconciliations health physics technician and/or nursing. Patients Allergies have been reviewed. Allergies Coded Allergies: Sulfa (Sulfonamide Antibiotics) (Verified Allergy, Mild, 02/04/18) SVL-Vwwjuv-Fucnza Hx Patient Social History Living Status: Lives with son Alcohol Use: Denies Use Recreational Drug Use: No Smoking Status: Never a Smoker Recent Foreign Travel: No Contact w/other who traveled: No Recent Hopitalizations: No Recent Infectious Disease Expo: No Physical Abuse Screen: No Sexual Abuse: No Immunizations Up To Date Date of Pneumonia Vaccine: Apr 27, 2011 Past Medical History Small Cell Lung Ca with mets Family Medical History Family History: FH: breast cancer G8 SISTER Review of Systems (CHC) Constitutional: chills; No fever; malaise, weakness, weight loss EENTM: no symptoms reported Respiratory: cough, dyspnea on exertion; No short of breath Cardiovascular: no symptoms reported; No chest pain, No edema, No palpitations Gastrointestinal: No abdominal pain, No constipation, No diarrhea; loss of appetite; No nausea, No vomiting Genitourinary: No dysuria; frequency; No hematuria : No Musculoskeletal: no symptoms reported Skin: no symptoms reported; No lesions, No rash Psychiatric/Neurological: No Symptoms Reported Reviewed Test Results Reviewed Test Results Lab Laboratory Tests Test 02/05/18 06:11 02/05/18 10:21 Range/Units White Blood Count 7.7 4.3-11.0 10^3/uL Red Blood Count 4.20 L 4.35-5.85 10^6/uL Hemoglobin 12.5 11.5-16.0 G/DL Hematocrit 34 L 35-52 % Mean Corpuscular Volume 81 80-99 FL Mean Corpuscular Hemoglobin 30 25-34 PG Mean Corpuscular Hemoglobin Concent 37 H 32-36 G/DL Red Cell Distribution Width 13.0 10.0-14.5 % Platelet Count 186 130-400 10^3/uL Mean Platelet Volume 8.8 7.4-10.4 FL Neutrophils (%) (Auto) 79 H 42-75 % Lymphocytes (%) (Auto) 12 12-44 % Monocytes (%) (Auto) 9 0-12 % Eosinophils (%) (Auto) 0 0-10 % Basophils (%) (Auto) 0 0-10 % Neutrophils # (Auto) 6.1 1.8-7.8 X 10^3 Lymphocytes # (Auto) 0.9 L 1.0-4.0 X 10^3 Monocytes # (Auto) 0.7 0.0-1.0 X 10^3 Eosinophils # (Auto) 0.0 0.0-0.3 10^3/uL Basophils # (Auto) 0.0 0.0-0.1 10^3/uL Sodium Level 136 135-145 MMOL/L Potassium Level 2.6 L 3.6-5.0 MMOL/L Chloride Level 102 98-107 MMOL/L Carbon Dioxide Level 25 21-32 MMOL/L Anion Gap 9 5-14 MMOL/L Blood Urea Nitrogen 5 L 7-18 MG/DL Creatinine 0.69 0.60-1.30 MG/DL Estimat Glomerular Filtration Rate > 60 BUN/Creatinine Ratio 7 Glucose Level 111 H 70-105 MG/DL Calcium Level 8.7 8.5-10.1 MG/DL Corrected Calcium 8.9 8.5-10.1 MG/DL Total Bilirubin 1.8 H 0.1-1.0 MG/DL Aspartate Amino Transf (AST/SGOT) 17 5-34 U/L Alanine Aminotransferase (ALT/SGPT) 6 0-55 U/L Alkaline Phosphatase 72 40-136 U/L Total Protein 6.3 L 6.4-8.2 GM/DL Albumin 3.7 3.2-4.5 GM/DL Thyroid Stimulating Hormone (TSH) 0.69 0.35-4.94 UIU/ML Free Thyroxine 1.58 H 0.70-1.48 NG/DL Urine Creatinine 21 L 30-125 MG/DL Radiology Date of Exam:02/04/18 CT HEAD W WO PROCEDURE: CT head with and without contrast. TECHNIQUE: Multiple contiguous axial images were obtained through the brain before and after the administration of intravenous contrast. INDICATION: Fever, weakness, and unresponsive. COMPARISON: None FINDINGS: The ventricles are normal in size, shape and position. There is no midline shift or mass effect. There is no hemorrhage or evidence of acute ischemia. There is no abnormal enhancement or mass. No extra-axial fluid collection is identified. There is no cerebral edema. The bony calvarium, visualized paranasal sinuses and mastoids are normal. IMPRESSION: Negative CT head. Date of Exam: 02/04/18 CHEST 1 VIEW, AP/PA ONLY INDICATION: Lung cancer. Unresponsive patient. Exam compared with study of 3 days earlier. Coarsened bilateral interstitial and nodular opacities are largely stable from previous exam. Airspace like density in the periphery of the right upper lobe however may have increased. The possibility of some mild pneumonia superimposed upon the otherwise chronic finding could not be excluded with confidence. No effusion or pneumothorax. IMPRESSION: Chronic lung disease and bilateral nodules are redemonstrated unchanged from the recent exam. There is some more vague airspace like density in the right upper lobe laterally just above the fissure which may reflect some developing pneumonia. No other potential interval change. Physical Exam-(CHC) Physical Exam Vital Signs VS - Last 72 Hours, by Label 02/04/18 02/04/18 02/04/18 02/04/18 10:37 13:53 14:00 14:00 Temp 99.2 99.5 Pulse 91 98 101 Resp 16 23 20 B/P (MAP) 132/82 (99) 119/89 138/67 (90) Pulse Ox 96 98 97 O2 Delivery Room Air Room Air Room Air Room Air 02/04/18 02/04/18 02/04/18 02/04/18 15:02 15:52 15:59 17:00 Temp 97.0 Pulse 92 78 76 76 Resp 20 20 16 16 B/P (MAP) 135/84 (101) 114/68 (83) 115/67 (83) 100/61 (74) Pulse Ox 98 98 99 O2 Delivery Room Air Room Air Room Air 02/04/18 02/04/18 02/04/18 02/04/18 17:09 18:08 18:13 18:30 Temp 100.7 Pulse 82 76 Resp 18 B/P (MAP) 98/64 (75) 106/66 (79) Pulse Ox 98 98 O2 Delivery Room Air FiO2 21 02/04/18 02/04/18 02/04/18 02/04/18 19:00 19:04 19:21 19:32 Temp 100.5 Pulse 74 77 80 Resp 20 20 B/P (MAP) 115/68 (84) 115/69 (84) Pulse Ox 96 98 99 O2 Delivery Room Air Room Air Room Air 02/04/18 02/04/18 02/04/18 02/04/18 20:00 20:36 21:35 22:34 Temp 98.4 99.6 98.9 Pulse 84 70 71 Resp 20 20 20 B/P (MAP) 119/71 (87) 104/64 (77) 113/58 (76) Pulse Ox 100 100 98 98 O2 Delivery Room Air Room Air Room Air Room Air 02/04/18 02/05/18 02/05/18 02/05/18 23:34 00:00 00:06 00:34 Temp 100.2 99.7 100.4 100.2 Pulse 77 84 77 Resp 20 20 20 B/P (MAP) 133/74 (93) 133/74 (93) 121/73 (89) Pulse Ox 98 100 98 O2 Delivery Room Air Room Air Room Air 02/05/18 02/05/18 02/05/18 02/05/18 00:36 01:00 01:35 02:37 Temp 100.2 99.2 99.2 Pulse 73 75 71 Resp 20 20 B/P (MAP) 127/70 (89) 113/61 (78) Pulse Ox 97 98 O2 Delivery Room Air Room Air 02/05/18 02/05/18 02/05/18 02/05/18 03:33 04:35 05:33 06:34 Temp 98.2 98.4 98.6 98.9 Pulse 65 72 70 67 Resp 18 20 18 20 B/P (MAP) 134/79 (97) 133/82 (99) 138/77 (97) 137/77 (97) Pulse Ox 99 96 98 99 O2 Delivery Room Air Room Air Room Air Room Air 02/05/18 02/05/18 02/05/18 02/05/18 07:00 08:37 08:39 09:40 Temp 98.9 Pulse 69 83 67 84 Resp 16 B/P (MAP) 113/73 (86) 121/75 (90) Pulse Ox 99 O2 Delivery Room Air Room Air 02/05/18 02/05/18 02/05/18 02/05/18 10:36 11:38 12:42 13:00 Temp 99.8 Pulse 81 70 76 71 Resp 16 16 B/P (MAP) 126/58 (80) 123/73 (90) 113/71 (85) Pulse Ox 98 97 O2 Delivery Room Air Room Air Room Air 02/05/18 02/05/18 13:36 16:07 Temp 97.5 Pulse 78 79 Resp 18 B/P (MAP) 128/63 (84) 143/82 (102) Pulse Ox 97 O2 Delivery Room Air Capillary Refill : Less Than 3 Seconds General Appearance: WD/WN, no apparent distress HEENT: PERRL/EOMI Neck: non-tender, full range of motion, supple Respiratory: no respiratory distress, no accessory muscle use, crackles Cardiovascular: normal peripheral pulses, regular rate, rhythm, no edema, no JVD, no murmur Gastrointestinal: normal bowel sounds, non tender, soft, no organomegaly Back: no CVA tenderness, no vertebral tenderness Extremities: normal range of motion, no pedal edema, no calf tenderness, normal capillary refill Neurologic/Psychiatric: paper products printer II-XII nml as tested, no motor/sensory deficits, alert, normal mood/affect, oriented x 3 Skin: normal color, warm/dry Lymphatic: no adenopathy Assessment/Plan Assessment/Plan Admission Status: Inpatient Order (span 2 midnights) Reason for Inpatient Admission: requires close monitoring and IV antiboitics (1) Altered mental state Status: Acute Assessment & Plan: Likely 2/2 hyponatremia vs UTI, patient back to her baseline this AM Qualifiers: Qualified Codes: R40.4 - Transient alteration of awareness (2) Sepsis due to urinary tract infection Status: Acute Assessment & Plan: - Patient responded well to IVFs and antibiotics, urine and blood cultures pending, Broad spectrum and MRSA coverage given recent chemo administration (3) Hyponatremia Status: Acute Assessment & Plan: - Resolved, likely hypovolemic hyponatremia given rate of correction (4) Hypokalemia Status: Acute Assessment & Plan: - Replaced and repeat CMP in AM (5) Hypothyroidism Status: Chronic Assessment & Plan: - Elevated T4 and low normal TSH, will decrease levothyroxine to 75mcg daily Qualifiers: Qualified Codes: E03.9 - Hypothyroidism, unspecified (6) Small cell lung cancer Status: Chronic Assessment & Plan: - Consult Hem/Onc (7) Urinary tract infection Status: Acute Assessment & Plan: See Above Qualifiers: Qualified Codes: N30.00 - Acute cystitis without hematuria (8) Right upper lobe pneumonia Status: Acute Assessment & Plan: - See Above, likely post obstructive 2/2 to lung mass Qualifiers: Qualified Codes: J18.1 - Lobar pneumonia, unspecified organism (9) DVT prophylaxis Status: Acute Assessment & Plan: Lovenox Clinical Quality Measures DVT/VTE Risk/Contraindication: Risk Factor Score Per Nursin RFS Level Per Nursing on Admit: 4+=Very High Copy Copies To 1: SAGAR BELTRÁN MD Feb 05, 2018 17:28
[2018-02-05] MEDS ORDERED: LEVOTHYROXINE 25 MCG (LEVOTHROID) TAB ONE (20:13)
[2018-02-05] MEDS ORDERED: LEVOTHYROXINE 50 MCG (LEVOTHROID) TAB ONE (20:13)
[2018-02-05] MEDS: LEVOTHYROXINE 75 MCG (LEVOTHROID) TABLET PO SCH (20:42)
[2018-02-05] MEDS ORDERED: LEVOTHYROXINE 88 MCG (LEVOTHORID) TAB PO SCH (21:00)
[2018-02-06] VITALS: BP 140/65
[2018-02-06] MEDS: PIPERACILLIN/TAZO 4.5 GM/D5W 100 ML IV SCH ×6 (02:16→18:40)
[2018-02-06 04:00] VITALS: BP 137/63
[2018-02-06] MEDS: ACETAMINOPHEN 325 MG TABLET PO PRN (04:39)
[2018-02-06 06:03] LABS: BASOPHILS % (AUTO) 1 % (0-10); EOSINOPHILS # (AUTO) 0.1 10^3/uL (0.0-0.3); EOSINOPHILS % (AUTO) 2 % (0-10); HEMATOCRIT 36 % (35-52); HEMOGLOBIN 12.8 G/DL (11.5-16.0); LYMPHOCYTES % (AUTO) 15 % (12-44); MEAN CORPUSCULAR HEMOGLOBIN 30 PG (25-34); MEAN CORPUSCULAR HGB CONC 36 G/DL (32-36); MEAN CORPUSCULAR VOLUME 83 FL (80-99); MEAN PLATELET VOLUME 8.9 FL (7.4-10.4); MONOCYTES # (AUTO) 0.8 X 10^3 (0.0-1.0); MONOCYTES % (AUTO) 12 % (0-12); NEUTROPHILS # (AUTO) 4.4 X 10^3 (1.8-7.8); NEUTROPHILS % (AUTO) 70 % (42-75); PLATELET COUNT 180 10^3/uL (130-400); RED BLOOD COUNT 4.33 10^6/uL (4.35-5.85); RED CELL DISTRIBUTION WIDTH 13.7 % (10.0-14.5); WHITE BLOOD COUNT 6.3 10^3/uL (4.3-11.0)
[2018-02-06 06:20] LABS: ALANINE AMINOTRANSFERASE 7 U/L (0-55); ALBUMIN 3.7 GM/DL (3.2-4.5); ALKALINE PHOSPHATASE 74 U/L (40-136); BILIRUBIN,TOTAL 1.1 MG/DL (0.1-1.0); BUN/CREATININE RATIO 6; CALCIUM 8.6 MG/DL (8.5-10.1); CARBON DIOXIDE 20 MMOL/L (21-32); CHLORIDE 101 MMOL/L (98-107); CREATININE SERUM 0.69 MG/DL (0.60-1.30); GFR ESTIMATED > 60; GLUCOSE 106 MG/DL (70-105); POTASSIUM 3.1 MMOL/L (3.6-5.0); SODIUM 132 MMOL/L (135-145); TOTAL PROTEIN 6.5 GM/DL (6.4-8.2)
[2018-02-06 07:52] VITALS: BP 167/77
[2018-02-06] MEDS: RT-ALBUTEROL/IPRATROPIUM 3 ML (DUONEB) VIAL INH SCH ×2 (08:15→10:38)
[2018-02-06] MEDS: APIXABAN 2.5 MG (ELIQUIS) TABLET PO SCH ×2 (09:38→20:10)
[2018-02-06] MEDS: KCL 20 MEQ TAB (K-DUR) PO SCH (09:39)
[2018-02-06] MEDS: TIMOLOL MALEATE 0.5% 5 ML (TIMOPTIC) BTL OD SCH ×2 (09:40→20:10)
[2018-02-06 12:00] VITALS: BP 139/67
--- NOTE | 2018-02-06 13:46 | Physical Therapy Evaluation ---
PT Evaluation-General Medical Diagnosis Admission Date Feb 04, 2018 at 12:30 Medical Diagnosis: UTI/pneumonia Onset Date: Feb 04, 2018 Therapy Diagnosis Therapy Diagnosis: generalized weakness/debility Height/Weight Height (Feet): 5 Height (Inches): 5.00 Weight (Pounds): 143 Weight (Ounces): 10.6 Precautions Precautions/Isolations: Fall Prevention, Standard Precautions Weight Bear Status Right Lower Extremity: Right Weight Bearing/Tolerated Left Lower Extremity: Left Weight Bearing/Tolerated Referral Physician: Phill Reason for Referral: Evaluation/Treatment Medical History Additional Medical History metastatic lung cancer with mets to liver and brain Current History ED secondary to weakness, fever, unresponsive Reviewed History: Yes Social History Home: Single Level Current Living Status: Children Prior/Core FIM Prior Level of Function Functional [place] Measure 0=Not Assessed/NA 4=Minimal Assistance 1=Total Assistance 5=Supervision or Setup 2=Maximal Assistance 6=Modified [place] 3=Moderate Assistance 7=Complete [place] Bed Mobility: 7 Transfers (B,C,W/C) (FIM): 7 Gait: 7 lives with son PT Evaluation-Current Subjective Patient is nonspeaking [place]. Son present to assist with needs. Pain Numeric Pain Scale: 0-No Pain Location: No Pain Reported Objective Patient Orientation: Normal For Age Problem Solving: Fair Attachments: IV ROM/Strength ROM Lower Extremities bilateral LE WNL Strength Lower Extremities 4-/5 grossly Integumentary/Posture Integumentary refer to nursing notes Bowel Incontinence: No Bladder Incontinence: No Posture WFL Neuromuscular (Tone, Coordination, Reflexes) grossly intact (slight retropulsion with sit to stand with self correct) Sensory Vision: Wears Glasses Hearing: Functional Sensation Right Lower Extremit: Intact Sensation Left Lower Extremity: Intact Transfers Functional [place] Measure 0=Not Assessed/NA 4=Minimal Assistance 1=Total Assistance 5=Supervision or Setup 2=Maximal Assistance 6=Modified [place] 3=Moderate Assistance 7=Complete [place] Transfers (B, C, W/C) (FIM): 4 Scootin Rollin Supine to/from Sit: 5 Sit to/from Stand: 4 Gait Mode of Locomotion: Walk Anticipated Mode of Locomotion: Walk Gait (FIM): 4 Distance (FIM): 3=150 ft Distance: 225' Gait Level of Assist: 4 Gait Persons Needed: 1 Gait Assistive Device: FWW Comments/Gait Description very slow raj with frequent standing recovery periods due to fatigue/safe and functional gait sequence Balance Sitting Static: Normal Sitting Dynamic: Normal Standing Static: Fair Standing Dynamic: Fair Assessment/Needs 72 y.o. female, will benefit from skilled PT to address functional strength and mobility to improve current LOF to safely return to home with family at maximum LOF. Rehab Potential: Guarded Post Rehab Potential-Barriers: metastatic cancer PT Mcc Goals Mcc Goals PT Microsystems Engineer Goals Time Frame: Feb 18, 2018 Transfers (B,C,W/C) (FIM): 6 Gait (FIM): 6 Gait distance (FIM): 3=150 ft Distance: 250' Gait Level of Assist: 6 Gait Assistive Device: FWW PT Plan Problem List Problem List: Activity Tolerance, Functional Strength, Safety, Balance, Gait, Transfer, Bed Mobility Treatment/Plan Treatment Plan: Continue Plan of Care Treatment Plan: Bed Mobility, Education, Functional Activity Daniel, Functional Strength, Gait, Safety, Therapeutic Exercise, Transfers Treatment Duration: Feb 18, 2018 Frequency: 6 times per week Estimated Hrs Per Day: .5 hour per day Patient and/or Family Agrees t: Yes Discharge Recommendations Therapy D/C Recommendations: Home w/ Family Support Time/GCodes Time In: 1300 Time Out: 1332 Total Billed Treatment Time: 32 Total Billed Treatment 1 visit EVModC 17 min FA 15 min DASHA LUU PT Feb 06, 2018 13:46
[2018-02-06] MEDS ORDERED: TROUGH ORDER-PHARMACY XX NR (14:00)
--- NOTE | 2018-02-06 14:03 | Occ Therapy Progress Note ---
Therapy Progress Note OT order received, chart reviewed. Pt. up in chair and dressed. Son in room and translates for her. OT explained purpose of occupational therapy. Pt. states that she does not feel that she needs this. Son asked questions regarding OT. OT explained to son and pt. purpose of getting stronger through functional tasks. Pt. declines needing this at this time. Son states that he is hoping for discharge today. OT explains that if there are any questions or concerns that come up, to let nursing know to re-consult OT. Son verbalizes understanding. 1, visit Declined treatment Discharge OT MANDEEP SOLIS OT Feb 06, 2018 14:03
[2018-02-06] MEDS ORDERED: LEVO750T39 PO (15:06)
[2018-02-06] MEDS ORDERED: LEVO75TA PO (15:06)
[2018-02-06] MEDS: VANCOMYCIN 1 GM/NS 250 ML IVPB IV SCH ×2 (15:15)
[2018-02-06 16:32] VITALS: BP 152/74
[2018-02-06 20:10] VITALS: BP 153/72
[2018-02-06] MEDS: LEVOTHYROXINE 75 MCG (LEVOTHROID) TABLET PO SCH (20:10)
--- NOTE | 2018-02-06 20:36 | Progress Note (SOAP) ---
Subjective Subjective/Events-last exam Afebrile, no acute events. Feeling okay, still weak. Review of Systems Date Seen by Provider: Feb 06, 2018 Time Seen by Provider: 09:40 Focused Exam Lactate Level 02/04/18 11:00: Lactic Acid Level 1.91 Objective Exam Last Set of Vital Signs Vital Signs Date Time Temp Pulse Resp B/P (MAP) Pulse Ox O2 Delivery O2 Flow Rate FiO2 02/06/18 16:32 98.4 86 20 152/74 (100) 96 Room Air 02/04/18 17:09 21 Capillary Refill : Less Than 3 Seconds I&O Intake and Output 02/06/18 00:00 Intake Total 3010 ml Output Total 4950 ml Balance -1940 ml Intake Oral 860 ml IV Total 2150 ml Output Urine Total 4950 ml # Bowel Movements 2 General: Alert, No Acute Distress Lungs: Clear to Auscultation, Normal Air Movement Heart: Regular Rate, No Murmurs Psych/Mental Status: Mood NL Results/Procedures Lab Laboratory Tests 02/06/18 05:28: White Blood Count 6.3, Red Blood Count 4.33L, Hemoglobin 12.8, Hematocrit 36, Mean Corpuscular Volume 83, Mean Corpuscular Hemoglobin 30, Mean Corpuscular Hemoglobin Concent 36, Red Cell Distribution Width 13.7, Platelet Count 180, Mean Platelet Volume 8.9, Neutrophils (%) (Auto) 70, Lymphocytes (%) (Auto) 15, Monocytes (%) (Auto) 12, Eosinophils (%) (Auto) 2, Basophils (%) (Auto) 1, Neutrophils # (Auto) 4.4, Lymphocytes # (Auto) 1.0, Monocytes # (Auto) 0.8, Eosinophils # (Auto) 0.1, Basophils # (Auto) 0.0, Sodium Level 132L, Potassium Level 3.1L, Chloride Level 101, Carbon Dioxide Level 20L, Anion Gap 11, Blood Urea Nitrogen 4L, Creatinine 0.69, Estimat Glomerular Filtration Rate > 60, BUN/ Creatinine Ratio 6, Glucose Level 106H, Calcium Level 8.6, Corrected Calcium 8.8 , Total Bilirubin 1.1H, Aspartate Amino Transf (AST/SGOT) 17, Alanine Aminotransferase (ALT/SGPT) 7, Alkaline Phosphatase 74, Total Protein 6.5, Albumin 3.7 02/06/18 14:27: Vancomycin Level Trough 5.1L Microbiology 02/04/18 Blood Culture - Preliminary, Resulted No growth 02/04/18 Urine Culture - Final, Complete Proteus mirabilis Radiology Date of Exam:02/04/18 CT HEAD W WO PROCEDURE: CT head with and without contrast. TECHNIQUE: Multiple contiguous axial images were obtained through the brain before and after the administration of intravenous contrast. INDICATION: Fever, weakness, and unresponsive. COMPARISON: None FINDINGS: The ventricles are normal in size, shape and position. There is no midline shift or mass effect. There is no hemorrhage or evidence of acute ischemia. There is no abnormal enhancement or mass. No extra-axial fluid collection is identified. There is no cerebral edema. The bony calvarium, visualized paranasal sinuses and mastoids are normal. IMPRESSION: Negative CT head. Date of Exam: 02/04/18 CHEST 1 VIEW, AP/PA ONLY INDICATION: Lung cancer. Unresponsive patient. Exam compared with study of 3 days earlier. Coarsened bilateral interstitial and nodular opacities are largely stable from previous exam. Airspace like density in the periphery of the right upper lobe however may have increased. The possibility of some mild pneumonia superimposed upon the otherwise chronic finding could not be excluded with confidence. No effusion or pneumothorax. IMPRESSION: Chronic lung disease and bilateral nodules are redemonstrated unchanged from the recent exam. There is some more vague airspace like density in the right upper lobe laterally just above the fissure which may reflect some developing pneumonia. No other potential interval change. Assessment/Plan Assessment/Plan (1) Altered mental state Status: Resolved Assessment & Plan: Likely 2/2 hyponatremia vs UTI, patient back to her baseline this AM RESOLVED Qualifiers: Qualified Codes: R40.4 - Transient alteration of awareness (2) Sepsis due to urinary tract infection Status: Acute Assessment & Plan: - Patient responded well to IVFs and antibiotics, urine and blood cultures pending, Broad spectrum and MRSA coverage given recent chemo administration 02/06 Urine cx with proteus, sensitivity pending, continue vancomycin and pip/ tazo with also possible pneumonia (3) Hyponatremia Status: Acute Assessment & Plan: - Resolved, likely hypovolemic hyponatremia given rate of correction 02/06 normal yesterday, slightly down again today, monitor (4) Hypokalemia Status: Acute Assessment & Plan: - Replaced and repeat CMP in AM 02/06 improved, received further replacement this am, recheck tomorrow (5) Hypothyroidism Status: Chronic Assessment & Plan: - Elevated T4 and low normal TSH, will decrease levothyroxine to 75mcg daily Qualifiers: Qualified Codes: E03.9 - Hypothyroidism, unspecified (6) Urinary tract infection Status: Acute Assessment & Plan: See Above Qualifiers: Qualified Codes: N30.00 - Acute cystitis without hematuria (7) Adenocarcinoma, lung Status: Chronic Assessment & Plan: With metastatic disease, follows with Dr. Hennessy and is on chemotherapy, consult Oncology (8) Right upper lobe pneumonia Status: Acute Assessment & Plan: -Possible, unclear how much is new vs persistent from prior x-ray reads. Covered with abx for urine as above. Qualifiers: Qualified Codes: J18.1 - Lobar pneumonia, unspecified organism (9) DVT prophylaxis Status: Acute Assessment & Plan: On apixaban Clinical Quality Measures DVT/VTE Risk/Contraindication: Risk Factor Score Per Nursin RFS Level Per Nursing on Admit: 4+=Very High MANUEL CARVER MD Feb 06, 2018 20:36
[2018-02-07] VITALS: BP 140/67
[2018-02-07] MEDS: VANCOMYCIN 1 GM/NS 250 ML IVPB IV SCH ×2 (03:10)
[2018-02-07 04:00] VITALS: BP 158/73
[2018-02-07] MEDS: PIPERACILLIN/TAZO 4.5 GM/D5W 100 ML IV SCH ×4 (04:11→11:57)
[2018-02-07 06:17] LABS: BASOPHILS % (AUTO) 0 % (0-10); EOSINOPHILS # (AUTO) 0.2 10^3/uL (0.0-0.3); EOSINOPHILS % (AUTO) 2 % (0-10); HEMATOCRIT 37 % (35-52); HEMOGLOBIN 13.2 G/DL (11.5-16.0); LYMPHOCYTES % (AUTO) 13 % (12-44); MEAN CORPUSCULAR HEMOGLOBIN 30 PG (25-34); MEAN CORPUSCULAR HGB CONC 36 G/DL (32-36); MEAN CORPUSCULAR VOLUME 83 FL (80-99); MEAN PLATELET VOLUME 8.9 FL (7.4-10.4); MONOCYTES # (AUTO) 0.7 X 10^3 (0.0-1.0); MONOCYTES % (AUTO) 9 % (0-12); NEUTROPHILS # (AUTO) 5.8 X 10^3 (1.8-7.8); NEUTROPHILS % (AUTO) 76 % (42-75); PLATELET COUNT 222 10^3/uL (130-400); RED BLOOD COUNT 4.44 10^6/uL (4.35-5.85); RED CELL DISTRIBUTION WIDTH 13.5 % (10.0-14.5); WHITE BLOOD COUNT 7.6 10^3/uL (4.3-11.0)
[2018-02-07 06:41] LABS: ALANINE AMINOTRANSFERASE 9 U/L (0-55); ALBUMIN 3.9 GM/DL (3.2-4.5); ALKALINE PHOSPHATASE 79 U/L (40-136); BILIRUBIN,TOTAL 0.9 MG/DL (0.1-1.0); BUN/CREATININE RATIO 6; CALCIUM 9.2 MG/DL (8.5-10.1); CARBON DIOXIDE 25 MMOL/L (21-32); CHLORIDE 99 MMOL/L (98-107); CREATININE SERUM 0.67 MG/DL (0.60-1.30); GFR ESTIMATED > 60; GLUCOSE 112 MG/DL (70-105); MAGNESIUM 2.2 MG/DL (1.8-2.4); SODIUM 134 MMOL/L (135-145); TOTAL PROTEIN 6.9 GM/DL (6.4-8.2)
[2018-02-07 08:00] VITALS: BP 169/77
--- NOTE | 2018-02-07 08:47 | Physical Therapy Progress Note ---
Therapy Progress Note Patient's son declined PT this a.m. due to, as he states, "She's fussy. I will walk her later. Thank you." Per RN, patient's son wants to take her home today. PT will continue to monitor status. 1 ref ([id number]) DASHA LUU PT Feb 07, 2018 08:47
[2018-02-07] MEDS: APIXABAN 2.5 MG (ELIQUIS) TABLET PO SCH (09:22)
[2018-02-07] MEDS: TIMOLOL MALEATE 0.5% 5 ML (TIMOPTIC) BTL OD SCH (09:22)
[2018-02-07] MEDS ORDERED: POTA-51 PO (10:07)
[2018-02-07] MEDS ORDERED: AMOX-358 PO (10:07)
--- NOTE | 2018-02-07 10:08 | Discharge Instructions ---
Discharge Inst-[facility] Discharge Medications New, Converted or Re-Newed RX: Transmitted to Pharmacy New Medications: Amoxicillin/Potassium Clav (Augmentin 875-125 Tablet) 1 Each Tablet 1 EACH PO BID, #14 TAB Potassium Chloride (Potassium Chloride) 20 Meq Tablet.er 20 MEQ PO DAILY, #30 TAB 0 Refills Levothyroxine Sodium (Synthroid) 75 Mcg Tablet 75 MCG PO HS, #30 TAB 0 Refills Continued Medications: Apixaban (Eliquis) 2.5 Mg Tablet 2.5 MG PO BID, TAB Guaifenesin (Guaifenesin) 400 Mg Tablet 400 MG PO BID, TAB Lisinopril (Lisinopril) 5 Mg Tablet 5 MG PO HS Omeprazole (Omeprazole) 20 Mg Capsule.dr 20 MG PO DAILY Timolol Maleate (Timolol Maleate 0.5%) 5 Ml Drops 1 DROP OD BID Discontinued Medications: Levothyroxine Sodium (Levothyroxine Sodium) 88 Mcg Tablet 88 MCG PO HS Patient Instructions Goal/Follow Up Appt: Follow up with Shavon Joseph at [facility] on 02/14 at 8:20 am. Follow up with Dr. Hennessy as directed. Patient Instructions: Try taking a probiotic to help prevent antibiotic associated diarrhea. Return to The Hospital For: Fever, confusion, weakness Activity & Diet Discharge Diet: Regular Diet Activity as Tolerated: Yes Orders-Post D/C & Referrals Pneu Vac Indicated: Yes Copy Copies To 1: GHULAM Cervantes BETHANY N MD Feb 06, 2018 15:09
--- NOTE | 2018-02-07 10:10 | Discharge Summary ---
Diagnosis/Chief Complaint Date of Admission Feb 04, 2018 at 12:30 pm Date of Discharge Feb 07, 2018 Admission Diagnosis Admission Diagnosis (1) Altered mental state Qualifiers: Qualified Codes: R40.4 - Transient alteration of awareness (2) Sepsis due to urinary tract infection (3) Hyponatremia (4) Hypokalemia (5) Hypothyroidism (6) Urinary tract infection (7) Adenocarcinoma, lung (8) Right upper lobe pneumonia Qualifiers: Qualified Codes: J18.1 - Lobar pneumonia, unspecified organism Discharge Diagnosis (1) Altered mental state Status: Resolved Assessment & Plan: Likely 2/2 hyponatremia vs UTI, patient back to her baseline this AM RESOLVED (2) Sepsis due to urinary tract infection Status: Acute Assessment & Plan: - Patient responded well to IVFs and antibiotics, urine and blood cultures pending, Broad spectrum and MRSA coverage given recent chemo administration 02/06 Urine cx with proteus, sensitivity pending, continue vancomycin and pip/ tazo with also possible pneumonia 02/07 d/c with Augmentin for 7 days (3) Hyponatremia Status: Acute Assessment & Plan: - Resolved, likely hypovolemic hyponatremia given rate of correction 02/06 normal yesterday, slightly down again today, monitor 02/07 stable (4) Hypokalemia Status: Acute Assessment & Plan: - Replaced and repeat CMP in AM 02/06 improved, received further replacement this am, recheck tomorrow 02/07 persisted at mild level, replaced before d/c and script for 20 mEq daily given on d/c (5) Hypothyroidism Status: Chronic Assessment & Plan: - Elevated T4 and low normal TSH, will decrease levothyroxine to 75mcg daily (6) Urinary tract infection Status: Acute Assessment & Plan: See Above Qualifiers: Qualified Codes: N30.00 - Acute cystitis without hematuria (7) Adenocarcinoma, lung Status: Chronic Assessment & Plan: With metastatic disease, follows with Dr. Hennessy and is on chemotherapy, consulted Oncology (8) Right upper lobe pneumonia Status: Acute Assessment & Plan: -Possible, unclear how much is new vs persistent from prior x-ray reads. Covered with abx for urine as above. Qualifiers: Qualified Codes: J18.1 - Lobar pneumonia, unspecified organism Chief Complaint/HPI Chief Complaint/HPI 72 yo F with known Ca in the lung with mets that presented to ER after she was found by son confused and had urinary incontinence. Patient was seen on Tuesday in the oncology clinic and give dose of chemo at that time. Patient had normal labs at that time. Son was used as beamer helper. He states that she has been complaining of fatigue and just not feeling good for a few days prior to chemo. He stated that he had called oncology on thr and tuesday and they stated that it was likely 2/2 to chemo. Patient has had increased frequency of urination but denied any dysuria or fever. + night sweats on tuesday. She has never had an episode like this previously with her chemo. Discharge Summary-Simple/Stand Consultations Dr. Dodge (Oncology) Discharge Physical Examination Allergies: Coded Allergies: Sulfa (Sulfonamide Antibiotics) (Verified Allergy, Mild, 02/04/18) Vitals & I&Os Vital Sign - Last 12Hours Date Time Temp Pulse Resp B/P (MAP) Pulse Ox O2 Delivery O2 Flow Rate FiO2 02/07/18 08:00 98.4 86 16 169/77 (107) 98 Room Air 02/04/18 17:09 21 Intake and Output 02/07/18 00:00 Intake Total 2140 ml Output Total 2400 ml Balance -260 ml General Appearance: Alert, No Acute Distress Psych/Mental Status: Mood NL Hospital Course See final discharge diagnosis. Labs Laboratory Tests Test 02/06/18 05:28 02/06/18 14:27 02/07/18 06:06 Range/Units White Blood Count 6.3 7.6 4.3-11.0 10^3/uL Red Blood Count 4.33 L 4.44 4.35-5.85 10^6/uL Hemoglobin 12.8 13.2 11.5-16.0 G/DL Hematocrit 36 37 35-52 % Mean Corpuscular Volume 83 83 80-99 FL Mean Corpuscular Hemoglobin 30 30 25-34 PG Mean Corpuscular Hemoglobin Concent 36 36 32-36 G/DL Red Cell Distribution Width 13.7 13.5 10.0-14.5 % Platelet Count 180 222 130-400 10^3/uL Mean Platelet Volume 8.9 8.9 7.4-10.4 FL Neutrophils (%) (Auto) 70 76 H 42-75 % Lymphocytes (%) (Auto) 15 13 12-44 % Monocytes (%) (Auto) 12 9 0-12 % Eosinophils (%) (Auto) 2 2 0-10 % Basophils (%) (Auto) 1 0 0-10 % Neutrophils # (Auto) 4.4 5.8 1.8-7.8 X 10^3 Lymphocytes # (Auto) 1.0 1.0 1.0-4.0 X 10^3 Monocytes # (Auto) 0.8 0.7 0.0-1.0 X 10^3 Eosinophils # (Auto) 0.1 0.2 0.0-0.3 10^3/uL Basophils # (Auto) 0.0 0.0 0.0-0.1 10^3/uL Sodium Level 132 L 134 L 135-145 MMOL/L Potassium Level 3.1 L 3.0 L 3.6-5.0 MMOL/L Chloride Level 101 99 98-107 MMOL/L Carbon Dioxide Level 20 L 25 21-32 MMOL/L Anion Gap 11 10 5-14 MMOL/L Blood Urea Nitrogen 4 L 4 L 7-18 MG/DL Creatinine 0.69 0.67 0.60-1.30 MG/DL Estimat Glomerular Filtration Rate > 60 > 60 BUN/Creatinine Ratio 6 6 Glucose Level 106 H 112 H 70-105 MG/DL Calcium Level 8.6 9.2 8.5-10.1 MG/DL Corrected Calcium 8.8 9.3 8.5-10.1 MG/DL Total Bilirubin 1.1 H 0.9 0.1-1.0 MG/DL Aspartate Amino Transf (AST/SGOT) 17 15 5-34 U/L Alanine Aminotransferase (ALT/SGPT) 7 9 0-55 U/L Alkaline Phosphatase 74 79 40-136 U/L Total Protein 6.5 6.9 6.4-8.2 GM/DL Albumin 3.7 3.9 3.2-4.5 GM/DL Vancomycin Level Trough 5.1 L 10.0-20.0 UG/ML Magnesium Level 2.2 1.8-2.4 MG/DL Radiology Reviewed Date of Exam:02/04/18 CT HEAD W WO PROCEDURE: CT head with and without contrast. TECHNIQUE: Multiple contiguous axial images were obtained through the brain before and after the administration of intravenous contrast. INDICATION: Fever, weakness, and unresponsive. COMPARISON: None FINDINGS: The ventricles are normal in size, shape and position. There is no midline shift or mass effect. There is no hemorrhage or evidence of acute ischemia. There is no abnormal enhancement or mass. No extra-axial fluid collection is identified. There is no cerebral edema. The bony calvarium, visualized paranasal sinuses and mastoids are normal. IMPRESSION: Negative CT head. Date of Exam: 02/04/18 CHEST 1 VIEW, AP/PA ONLY INDICATION: Lung cancer. Unresponsive patient. Exam compared with study of 3 days earlier. Coarsened bilateral interstitial and nodular opacities are largely stable from previous exam. Airspace like density in the periphery of the right upper lobe however may have increased. The possibility of some mild pneumonia superimposed upon the otherwise chronic finding could not be excluded with confidence. No effusion or pneumothorax. IMPRESSION: Chronic lung disease and bilateral nodules are redemonstrated unchanged from the recent exam. There is some more vague airspace like density in the right upper lobe laterally just above the fissure which may reflect some developing pneumonia. No other potential interval change. Discharge Instructions to patient/family Please see electronic discharge instructions given to patient. Discharge Medications Reviewed and agree with Discharge Medication list on patient's Discharge Instruction sheet Clinical Quality Measures DVT/VTE Risk/Contraindication: Risk Factor Score Per Nursin RFS Level Per Nursing on Admit: 4+=Very High Copy Copies To 1: GHULAM Cervantes BETHANY N MD Feb 07, 2018 10:10 am
--- NOTE | 2018-02-07 10:14 | Consultation ---
History of Present Illness History of Present Illness Patient Consulted On(katie/time) 02/07/18 10:09 Time Seen by Provider: 08:45 Reason for Visit: Lung cancer, UTI and pneumonia History of Present Illness Ms. Quintana is a 72 year old Honey female admitted for lethargic, mental status change, UTI and pneumonia. 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 Hennessy, s/p chemoradiaton treatment, currently on Ketruda immunotherapy, last dose was given 02/01/18. She had chills before and after the last treatment. Her fatigue and overall condition got worse and ended up in the admission of in-pt. She was treated with IV antibiotics and IV hydration. Her mental status improved and she wants to go home. She has f/u with Dr Hennessy on . She had UTI in the past and was treated with Levaquin which made her stomach upset and feeling so "wash out" Allergies and Home Medications Allergies Coded Allergies: Sulfa (Sulfonamide Antibiotics) (Verified Allergy, Mild, 02/04/18) Home Medications Amoxicillin/Potassium Clav 1 Each Tablet, 1 EACH PO BID Prescribed by: MANUEL CARVER on 02/07/18 1007 Apixaban 2.5 Mg Tablet, 2.5 MG PO BID, (Reported) Guaifenesin 400 Mg Tablet, 400 MG PO BID, (Reported) Levothyroxine Sodium 88 Mcg Tablet, 88 MCG PO HS, (Reported) Levothyroxine Sodium 75 Mcg Tablet, 75 MCG PO HS Prescribed by: MANUEL CARVER on 02/06/18 1506 Lisinopril 5 Mg Tablet, 5 MG PO HS, (Reported) Omeprazole 20 Mg Capsule.dr, 20 MG PO DAILY, (Reported) Potassium Chloride 20 Meq Tablet.er, 20 MEQ PO DAILY Prescribed by: MANUEL CARVER on 02/07/18 1007 Timolol Maleate 5 Ml Drops, 1 DROP OD BID, (Reported) Patient Home Medication List Home Medication List Reviewed: Yes Past Ueomfgl-Obyasl-Kqdowq Hx Past Med/Social Hx: Reviewed Nursing Past Med/Soc Hx Patient Social History Alcohol Use: Denies Use Recreational Drug Use: No Smoking Status: Never a Smoker Recent Foreign Travel: No Contact w/Someone Who Travel: No Recent Infectious Disease Expo: No Recent Hopitalizations: No Immunizations Up To Date Date of Pneumonia Vaccine: Apr 27, 2011 Seasonal Allergies Seasonal Allergies: No Past Medical History Surgeries: Yes Respiratory: Yes (LUNG CA) Pneumonia Cardiac: Yes Neurological: No Genitourinary: No Gastrointestinal: Yes Gastroesophageal Reflux Musculoskeletal: No Endocrine: Yes (GRAVES DISEASE) HEENT: Yes Cataract, Macular Degeneration Cancer: Yes Lung Did You Recieve Any Treatments: Yes What Type of Treatment Did You: Radiation, Other RECEIVES KEYTRUDA, LAST DOSE 02/01/18. LAST RADIATION IN DECEMBER PER SON. Psychosocial: No Integumentary: No Blood Disorders: Yes (DVT'S) Family Medical History FH: breast cancer G8 SISTER Physical Exam-General Problems Physical Exam Vital Signs Vital Signs - First Documented 02/04/18 02/04/18 10:37 17:09 Temp 99.2 Pulse 91 Resp 16 B/P (MAP) 132/82 (99) Pulse Ox 96 O2 Delivery Room Air FiO2 21 Capillary Refill : Less Than 3 Seconds General Appearance: no apparent distress HEENT: PERRL/EOMI Neck: supple, normal inspection Respiratory: no respiratory distress, no accessory muscle use Cardiovascular: regular rate, rhythm, no edema Gastrointestinal: non tender, soft Extremities: no pedal edema Neurologic/Psychiatric: normal mood/affect, oriented x 3 Assessment/Plan Assessment/Plan Admission Diagnosis/Plan IMP: 1. Stage IV lung cancer with brain mets, on Kedruta treatment. Next dose will be on 02/22/18. Pt has an appointment to see Dr Hennessy. 2. UTI, proteus mirabilis, culture showed saha sensitive except microbite. Clinic improving on IV antibiotics 3. Pneumonia, on IV antibiotics, improving 4. h/o HTN on Lisinopril. Medicine on hold this admission due to low BP. 5. Plan: 1. Pt can be discharged to day. 2. I suggest oral Augmentin for 5 days when discharge home since she had bad experience with Levaquin and Cipro before. 3. Probiotics over the counter while on oral antibiotics. 4. Check the BP at home and bring the records to Dr Hennessy to decide if she needs to continue Lisinopril Clinical Quality Measures DVT/VTE Risk/Contraindication: Risk Factor Score Per Nursin RFS Level Per Nursing on Admit: 4+=Very High DANAY ANTHONY MD Feb 07, 2018 10:14
[2018-02-07] MEDS ORDERED: KCL 20 MEQ TAB (K-DUR) PO NR (10:15)
[2018-02-07 12:30] VITALS: BP 130/63
[2018-02-07] MEDS ORDERED: TROUGH ORDER-PHARMACY XX ONE (14:00)
== END 2018-02-07 13:45 | disposition home or self-care (01) | DRG 871 ==
LOC: EDUNIT# 10:37 → ER 10:38 → 4TH 12:30
PROVIDERS: ADMIT Family Medicine; ATTEND Family Medicine
DX: A41.9 Sepsis, unspecified organism (principal); N30.00 Acute cystitis without hematuria; J18.9 Pneumonia, unspecified organism; E87.1 Hypo-osmolality and hyponatremia; C34.90 Malignant neoplasm of unspecified part of unspecified bronchus or lung; C78.7 Secondary malignant neoplasm of liver and intrahepatic bile duct; C79.51 Secondary malignant neoplasm of bone; C79.31 Secondary malignant neoplasm of brain; Z66 Do not resuscitate; E87.6 Hypokalemia; E03.9 Hypothyroidism, unspecified; R40.4 Transient alteration of awareness; K21.9 Gastro-esophageal reflux disease without esophagitis; E05.00 Thyrotoxicosis with diffuse goiter without thyrotoxic crisis or storm; B96.4 Proteus (mirabilis) (morganii) as the cause of diseases classified elsewhere; Z92.21 Personal history of antineoplastic chemotherapy
CPT/HCPCS: 36415; 51702; 70470; 71045; 80053; 80202; 81000; 82570; 83605; 83735; 84300; 84439; 84443; 85007; 85025; 85027; 87040; 87077; 87081; 87088; 87186; 94760; 96361; 96374

== ENCOUNTER → 2018-03-13 | Outpatient (CLI) | payer MEDICAID ==
[~2018-03-13] MED LIST changes: +ACET-2267 PO; +ACHD5005 PO; +AMOX-358 PO; +CATHETER FLUSH 10 ML SYR IV PRN; +GUAI400T71 PO; +IOHEXOL 350 MG/ML 100 ML (OMNIPAQUE 350) VIAL IV ONE; +LEVO750T39 PO; +LEVO75TA PO; +NS 250 ML (IVPB) BAG IV ONE; +POTA-51 PO; +RECEIVED CONTRAST (Hold Metformin) IV SCH
--- NOTE | 2018-03-13 13:56 | Diagnostic Imaging Report ---
PROCEDURE: CT chest and abdomen with contrast. TECHNIQUE: Multiple contiguous axial images were obtained through the chest and abdomen after the administration of intravenous contrast. INDICATION: Lung cancer and bone metastases. COMPARISON: Comparison is made with prior CT from 09/09/2017. CT CHEST: No axillary lymphadenopathy is identified. No definite mediastinal lymphadenopathy is seen. There is now a large mass located at the right hilum posterior to the right mainstem bronchus measuring 4.5 cm transverse x 4.1 cm AP. This measured approximately 1.6 x 2.2 cm on prior. Left hilum does contain small lymph nodes, not definitely seen on prior exam. No significant pericardial fluid is seen. No pleural fluid is identified. Numerous bilateral pulmonary masses are again seen consistent with pulmonary metastatic disease. A large spiculated mass in the right upper lobe measures 2.2 x 2.9 cm compared with 2.8 x 2.9 cm. Spiculated mass more inferiorly on the right and anterior measures 2.7 x 1.5 cm compared with 2.0 x 1.3 cm on prior. A lobulated mass in the posterolateral right lower lobe measures 1.9 x 1.7 cm, not well seen on prior exam. Left lung demonstrates a significant increase in number of pulmonary masses. There is a cavitary mass in the left lower lobe, which appears new since prior exam measuring 2.3 x 2.1 cm. Numerous additional masses are present. Sclerotic lesion involving the right approximately ninth lateral rib is seen. There is also a sclerotic lesion involving the left posterior fourth rib. These may represent osseous metastases. IMPRESSION: Increase in size and number of numerous spiculated masses throughout both lungs consistent worsening pulmonary metastatic disease. There is a new large mass located in the right hilum. There are sclerotic lesions involving bilateral ribs also present consistent with osseous metastatic disease. CT ABDOMEN: A large cystic lesion in the dome of the liver appears similar. There has been increase in size of a large solid mass in the left lobe of the liver measuring approximately 5.1 x 5.1 cm. This compares with 1.3 x 1.1 cm on prior exam. An additional low-density lesion more inferiorly in the left lobe is also noted measuring 3.2 x 2.1 cm. This compares with 2.7 x 2.2 cm on prior. The gallbladder is unremarkable. The pancreas and spleen are unremarkable. No adrenal mass is detected. Kidneys are unremarkable. The aorta is nonaneurysmal. No definite central retroperitoneal lymphadenopathy is seen. No mesenteric lymphadenopathy is identified. The small and large bowel loops are normal in caliber. There is no ascites. Bony structures are unremarkable. IMPRESSION: Enlarging liver lesions consistent with hepatic metastatic disease when compared with exam from 09/09/2017. Dictated by: Dictated on workstation # [id number]
--- NOTE | 2018-03-13 15:49 | Diagnostic Imaging Report ---
INDICATION: Lung cancer. TECHNIQUE: Patient was administered 26.9 mCi technetium 99m MDP intravenously and whole-body imaging was performed after 3 hour delay. COMPARISON: Correlation is made with prior bone scan from 09/09/2017. FINDINGS: Normal uptake of activity by the axial and appendicular skeleton is seen. There is uptake by both kidneys with excretion into the urinary bladder. Previously noted region of abnormal uptake involving the left posterior approximately ninth rib is again noted and appears slightly more prominent on today's study. There is a new area of abnormal uptake involving left upper posterior rib, approximately left third rib. There is also a new focus involving right lower lateral rib, corresponding with CT abnormality. There is also new foci of abnormal uptake involving the mid shafts of the right and left femur, suggestive of metastatic lesions. No other suspicious abnormality is seen. IMPRESSION: New foci of increased uptake are identified consistent with worsening osseous metastatic disease when compared with prior bone scan from 09/09/2017. Dictated by: Dictated on workstation # [id number]
== END ==
LOC: CARD 11:37
PROVIDERS: ATTEND Nurse Practitioner Adult Health
DX: C34.91 Malignant neoplasm of unspecified part of right bronchus or lung (principal); C79.51 Secondary malignant neoplasm of bone; K76.9 Liver disease, unspecified; R91.8 Other nonspecific abnormal finding of lung field
CPT/HCPCS: 71260; 74160; 78306

== ENCOUNTER 2018-03-22 10:37 | Outpatient (RCR) | payer MEDICAID ==
[2018-01-11 14:35] LABS: BASOPHILS % (AUTO) 0 % (0-10); EOSINOPHILS # (AUTO) 0.2 10^3/uL (0.0-0.3); EOSINOPHILS % (AUTO) 2 % (0-10); HEMATOCRIT 37 % (35-52); HEMOGLOBIN 13.2 G/DL (11.5-16.0); LYMPHOCYTES # (AUTO) 1.2 X 10^3 (1.0-4.0); LYMPHOCYTES % (AUTO) 12 % (12-44); MEAN CORPUSCULAR HEMOGLOBIN 30 PG (25-34); MEAN CORPUSCULAR HGB CONC 35 G/DL (32-36); MEAN CORPUSCULAR VOLUME 85 FL (80-99); MONOCYTES % (AUTO) 11 % (0-12); NEUTROPHILS # (AUTO) 7.2 X 10^3 (1.8-7.8); NEUTROPHILS % (AUTO) 75 % (42-75); PLATELET COUNT 156 10^3/uL (130-400); RED CELL DISTRIBUTION WIDTH 13.8 % (10.0-14.5); WHITE BLOOD COUNT 9.5 10^3/uL (4.3-11.0)
[2018-01-11 14:44] LABS: BILIRUBIN,URINE NEGATIVE (NEGATIVE); CLARITY,URINE CLEAR; COLOR,URINE YELLOW; GLUCOSE, URINE (UA) NEGATIVE (NEGATIVE); KETONES,URINE NEGATIVE (NEGATIVE); LEUKOCYTE ESTERASE ,URINE 1+ (NEGATIVE); NITRITE,URINE NEGATIVE (NEGATIVE); PH,URINE 6 (5-9); PROTEIN,URINE NEGATIVE (NEGATIVE); UROBILINOGEN,URINE NORMAL (NORMAL)
[2018-01-11 14:57] LABS: ALANINE AMINOTRANSFERASE 6 U/L (0-55); ALBUMIN 3.9 GM/DL (3.2-4.5); ALKALINE PHOSPHATASE 82 U/L (40-136); BILIRUBIN,TOTAL 0.7 MG/DL (0.1-1.0); BUN/CREATININE RATIO 10; CALCIUM 8.7 MG/DL (8.5-10.1); CARBON DIOXIDE 29 MMOL/L (21-32); CHLORIDE 97 MMOL/L (98-107); CREATININE SERUM 0.73 MG/DL (0.60-1.30); GFR ESTIMATED > 60; GLUCOSE 151 MG/DL (70-105); POTASSIUM 3.3 MMOL/L (3.6-5.0); SODIUM 134 MMOL/L (135-145); TOTAL PROTEIN 6.8 GM/DL (6.4-8.2)
[2018-01-11 15:23] LABS: BACTERIA,URINE NEGATIVE /HPF; RBC,URINE 0-2 /HPF; SQUAMOUS EPITHELIAL CELL,UR 0-2 /HPF
--- NOTE | 2018-02-01 10:30 | Diagnostic Imaging Report ---
INDICATION: Lung cancer, followup. TIME OF EXAMINATION: 10:36 a.m. COMPARISON: Correlation is made with prior chest x-ray from 12/21/2017. FINDINGS: The heart size is stable. The dominant mass right upper lobe appears slightly smaller at 2.9 cm compared with 3.5 cm. Additional irregular nodular densities throughout both lungs are again noted and appears similar. Interstitial changes throughout both lungs persist. There is no effusion. No pneumothorax is seen. IMPRESSION: There has been some decrease in size of the dominant mass in the right upper lobe when compared with exam from 12/21/2017. Dictated by: Dictated on workstation # [id number]
[2018-02-01 10:43] LABS: BASOPHILS % (AUTO) 0 % (0-10); EOSINOPHILS # (AUTO) 0.1 10^3/uL (0.0-0.3); EOSINOPHILS % (AUTO) 2 % (0-10); HEMATOCRIT 36 % (35-52); LYMPHOCYTES % (AUTO) 15 % (12-44); MEAN CORPUSCULAR HEMOGLOBIN 30 PG (25-34); MEAN CORPUSCULAR HGB CONC 36 G/DL (32-36); MEAN CORPUSCULAR VOLUME 85 FL (80-99); MEAN PLATELET VOLUME 8.8 FL (7.4-10.4); MONOCYTES # (AUTO) 0.7 X 10^3 (0.0-1.0); MONOCYTES % (AUTO) 11 % (0-12); NEUTROPHILS % (AUTO) 73 % (42-75); PLATELET COUNT 190 10^3/uL (130-400); RED BLOOD COUNT 4.28 10^6/uL (4.35-5.85); RED CELL DISTRIBUTION WIDTH 13.5 % (10.0-14.5); WHITE BLOOD COUNT 6.9 10^3/uL (4.3-11.0)
[2018-02-01 11:01] LABS: ALANINE AMINOTRANSFERASE 6 U/L (0-55); ALBUMIN 4.2 GM/DL (3.2-4.5); ALKALINE PHOSPHATASE 97 U/L (40-136); BUN/CREATININE RATIO 8; CALCIUM 9.5 MG/DL (8.5-10.1); CARBON DIOXIDE 28 MMOL/L (21-32); CHLORIDE 97 MMOL/L (98-107); CREATININE SERUM 0.77 MG/DL (0.60-1.30); GFR ESTIMATED > 60; GLUCOSE 117 MG/DL (70-105); POTASSIUM 3.5 MMOL/L (3.6-5.0); SODIUM 132 MMOL/L (135-145); TOTAL PROTEIN 7.4 GM/DL (6.4-8.2)
[2018-02-22 15:10] LABS: BASOPHILS # (AUTO) 0.1 10^3/uL (0.0-0.1); BASOPHILS % (AUTO) 1 % (0-10); EOSINOPHILS # (AUTO) 0.2 10^3/uL (0.0-0.3); EOSINOPHILS % (AUTO) 3 % (0-10); HEMATOCRIT 36 % (35-52); HEMOGLOBIN 12.6 G/DL (11.5-16.0); LYMPHOCYTES # (AUTO) 0.9 X 10^3 (1.0-4.0); LYMPHOCYTES % (AUTO) 13 % (12-44); MEAN CORPUSCULAR HEMOGLOBIN 30 PG (25-34); MEAN CORPUSCULAR HGB CONC 35 G/DL (32-36); MEAN CORPUSCULAR VOLUME 86 FL (80-99); MEAN PLATELET VOLUME 9.2 FL (7.4-10.4); MONOCYTES # (AUTO) 0.8 X 10^3 (0.0-1.0); MONOCYTES % (AUTO) 11 % (0-12); NEUTROPHILS # (AUTO) 5.1 X 10^3 (1.8-7.8); NEUTROPHILS % (AUTO) 72 % (42-75); PLATELET COUNT 153 10^3/uL (130-400); RED BLOOD COUNT 4.23 10^6/uL (4.35-5.85); WHITE BLOOD COUNT 7.1 10^3/uL (4.3-11.0)
--- NOTE | 2018-02-22 15:22 | Diagnostic Imaging Report ---
INDICATION: Lung cancer. COMPARISON: 02/04/2018. FINDINGS: Frontal and lateral views of the chest demonstrate unchanged bilateral pulmonary infiltrates. The heart remains prominent. There is no pneumothorax or effusion. The osseous structures are stable. IMPRESSION: 1. Unchanged chronic appearing pulmonary infiltrates. 2. Stable cardiac enlargement without pulmonary edema. Dictated by: Dictated on workstation # [id number]
[2018-02-22 15:28] LABS: BUN/CREATININE RATIO 12; CARBON DIOXIDE 25 MMOL/L (21-32); CHLORIDE 96 MMOL/L (98-107); CREATININE SERUM 0.75 MG/DL (0.60-1.30); POTASSIUM 4.2 MMOL/L (3.6-5.0); SODIUM 129 MMOL/L (135-145)
[2018-02-22 15:29] LABS: ALANINE AMINOTRANSFERASE 7 U/L (0-55); ALBUMIN 4.2 GM/DL (3.2-4.5); ALKALINE PHOSPHATASE 76 U/L (40-136); BILIRUBIN,TOTAL 0.9 MG/DL (0.1-1.0); CALCIUM 9.3 MG/DL (8.5-10.1); GFR ESTIMATED > 60; GLUCOSE 110 MG/DL (70-105); TOTAL PROTEIN 7.1 GM/DL (6.4-8.2)
[2018-03-02 15:07] LABS: BASOPHILS # (AUTO) 0.1 10^3/uL (0.0-0.1); BASOPHILS % (AUTO) 1 % (0-10); EOSINOPHILS # (AUTO) 0.2 10^3/uL (0.0-0.3); EOSINOPHILS % (AUTO) 2 % (0-10); HEMATOCRIT 36 % (35-52); HEMOGLOBIN 12.6 G/DL (11.5-16.0); LYMPHOCYTES # (AUTO) 0.9 X 10^3 (1.0-4.0); LYMPHOCYTES % (AUTO) 14 % (12-44); MEAN CORPUSCULAR HEMOGLOBIN 30 PG (25-34); MEAN CORPUSCULAR HGB CONC 35 G/DL (32-36); MEAN CORPUSCULAR VOLUME 86 FL (80-99); MEAN PLATELET VOLUME 9.2 FL (7.4-10.4); MONOCYTES # (AUTO) 0.6 X 10^3 (0.0-1.0); MONOCYTES % (AUTO) 10 % (0-12); NEUTROPHILS # (AUTO) 4.5 X 10^3 (1.8-7.8); NEUTROPHILS % (AUTO) 72 % (42-75); PLATELET COUNT 147 10^3/uL (130-400); RED BLOOD COUNT 4.17 10^6/uL (4.35-5.85); RED CELL DISTRIBUTION WIDTH 13.6 % (10.0-14.5); WHITE BLOOD COUNT 6.3 10^3/uL (4.3-11.0)
[2018-03-02 15:27] LABS: ALANINE AMINOTRANSFERASE 6 U/L (0-55); ALBUMIN 4.1 GM/DL (3.2-4.5); ALKALINE PHOSPHATASE 78 U/L (40-136); BUN/CREATININE RATIO 11; CALCIUM 9.2 MG/DL (8.5-10.1); CARBON DIOXIDE 24 MMOL/L (21-32); CHLORIDE 95 MMOL/L (98-107); GFR ESTIMATED > 60; GLUCOSE 159 MG/DL (70-105); POTASSIUM 4.2 MMOL/L (3.6-5.0); SODIUM 127 MMOL/L (135-145); TOTAL PROTEIN 6.9 GM/DL (6.4-8.2)
[~2018-03-22] VITALS: Ht 160 cm; Wt 60.3 kg
[~2018-03-22 10:37] MED LIST changes: -ACET-2267 PO; -ACHD5005 PO; -CATHETER FLUSH 10 ML SYR IV PRN; -IOHEXOL 350 MG/ML 100 ML (OMNIPAQUE 350) VIAL IV ONE; -NS 250 ML (IVPB) BAG IV ONE; +NS IV 500 ML (CANCER CENTER) 500 ML IV SCH; +PEMBROLIZUMAB 200 MG in NS (IVPB) CANCER CENTER 50 ML IV SCH; -RECEIVED CONTRAST (Hold Metformin) IV SCH
[2018-03-22 11:20] LABS: BASOPHILS % (AUTO) 0 % (0-10); EOSINOPHILS # (AUTO) 0.2 10^3/uL (0.0-0.3); EOSINOPHILS % (AUTO) 2 % (0-10); HEMATOCRIT 37 % (35-52); LYMPHOCYTES # (AUTO) 0.9 X 10^3 (1.0-4.0); LYMPHOCYTES % (AUTO) 10 % (12-44); MEAN CORPUSCULAR HEMOGLOBIN 30 PG (25-34); MEAN CORPUSCULAR HGB CONC 35 G/DL (32-36); MEAN CORPUSCULAR VOLUME 86 FL (80-99); MEAN PLATELET VOLUME 9.2 FL (7.4-10.4); MONOCYTES # (AUTO) 0.8 X 10^3 (0.0-1.0); MONOCYTES % (AUTO) 9 % (0-12); NEUTROPHILS % (AUTO) 78 % (42-75); PLATELET COUNT 149 10^3/uL (130-400); RED BLOOD COUNT 4.28 10^6/uL (4.35-5.85)
[2018-03-22 11:38] LABS: ALANINE AMINOTRANSFERASE 9 U/L (0-55); ALBUMIN 4.3 GM/DL (3.2-4.5); ALKALINE PHOSPHATASE 88 U/L (40-136); BILIRUBIN,TOTAL 0.6 MG/DL (0.1-1.0); BUN/CREATININE RATIO 20; CALCIUM 9.1 MG/DL (8.5-10.1); CARBON DIOXIDE 26 MMOL/L (21-32); CHLORIDE 97 MMOL/L (98-107); CREATININE SERUM 0.76 MG/DL (0.60-1.30); GFR ESTIMATED > 60; GLUCOSE 112 MG/DL (70-105); POTASSIUM 4.3 MMOL/L (3.6-5.0); SODIUM 131 MMOL/L (135-145); TOTAL PROTEIN 7.2 GM/DL (6.4-8.2)
[2018-03-28] MEDS ORDERED: PALONOSETRON HCL 0.25 MG, DEXAMETHASONE INJECTION 10 MG in NS (IVPB) CANCER CENTER 50 ML IV SCH (09:45)
[2018-03-28] MEDS ORDERED: PACLITAXEL 110 MG in NORMAL SALINE (CANCER CENTER) 250 ML IV SCH (09:45)
[2018-03-28] MEDS ORDERED: diphenhydrAMINE 25 MG TAB (BENADRYL) CANCER CENTER PO SCH (09:45)
[2018-03-28] MEDS ORDERED: FAMOTIDINE 20MG/2ML IV (CANCER CTR) IV SCH (09:45)
[2018-03-28] MEDS ORDERED: diphenhydrAMINE 50 MG/ML INJ (CANCER CENTER) IV PRN (09:45)
[2018-03-28] MEDS ORDERED: NS IV 1000 ML (CANCER CTR) IV SCH (09:45)
[2018-03-28] MEDS ORDERED: CARBOPLATIN 160 MG in D5W 50 ML IV(CANCER CTR) 50 ML IV SCH (10:00)
[2018-03-29] MEDS ORDERED: ACET-2267 PO (08:57)
[2018-03-30] MEDS ORDERED: ACHD5005 PO (11:34)
== END 2018-03-28 11:16 | disposition home or self-care (01) ==
LOC: ONC 10:37
PROVIDERS: ATTEND Internal Medicine Hematology & Oncology
DX: Z51.11 Encounter for antineoplastic chemotherapy (principal); C34.11 Malignant neoplasm of upper lobe, right bronchus or lung; C78.01 Secondary malignant neoplasm of right lung; C78.02 Secondary malignant neoplasm of left lung; E05.00 Thyrotoxicosis with diffuse goiter without thyrotoxic crisis or storm; I25.10 Atherosclerotic heart disease of native coronary artery without angina pectoris; I27.20 Pulmonary hypertension, unspecified; E80.6 Other disorders of bilirubin metabolism; Z86.711 Personal history of pulmonary embolism; Z82.49 Family history of ischemic heart disease and other diseases of the circulatory system; Z79.01 Long term (current) use of anticoagulants; Z79.899 Other long term (current) drug therapy
CPT/HCPCS: 36415; 71046; 80053; 81000; 84443; 85025; 87324; 87449; 96413; 99213

== ENCOUNTER 2018-03-29 05:51 | Outpatient (CLI) | payer MEDICAID ==
[~2018-03-29] VITALS: Ht 162.6 cm; Wt 61.0 kg
[~2018-03-29 05:51] MED LIST changes: -NS IV 500 ML (CANCER CENTER) 500 ML IV SCH; -PEMBROLIZUMAB 200 MG in NS (IVPB) CANCER CENTER 50 ML IV SCH
[2018-03-29] MEDS ORDERED: ACET-2267 PO (08:57)
[2018-03-30] MEDS ORDERED: ACHD5005 PO (11:34)
== END 2018-03-29 09:20 | disposition home or self-care (01) ==
LOC: PREOP 05:51
PROVIDERS: ATTEND Surgery
DX: Z01.818 Encounter for other preprocedural examination (principal)

== ENCOUNTER 2018-03-30 09:23 | Day surgery (SDC) | payer MEDICAID ==
[~2018-03-30] VITALS: Ht 162.6 cm; Wt 61.0 kg
[~2018-03-30 09:23] MED LIST changes: +ACET-2267 PO
[2018-03-30 09:30] VITALS: BP 168/88
[2018-03-30] MEDS ORDERED: LACTATED RINGERS 1,000 ML IV PRN (09:33)
--- OUTSIDE RECORDS SUMMARY | 2018-03-30 09:35 | XMS REPORT | Continuity of Care Document ---
Author Author [facility] Organization [facility] Address Unknown Phone Unavailable Allergies Active Description Code Type Severity Reaction Onset Reported/Identified Relationship to Patient Clinical Status Yes No Known Drug Allergies [id number] Drug Allergy Unknown N/A 10/16/2014 Yes Sulfa (Sulfonamide Antibiotics) [id number] Drug Allergy Mild N/A 2017 Medications There [...] LOWER EXTREMITIES WITH INFLAMMATION 04/20/2013 WHITE DDS, MORNEA D V04.81 FLU SHOT 04/20/2013 MANUEL CRAVER MD N 244.9 HYPOTHYROIDISM 04/20/2013 MANUEL CARVER MD N 454.1 VARICOSE VEINS OF LOWER EXTREMITIES WITH INFLAMMATION 04/20/2013 MANUEL CARVER MD N V04.81 FLU SHOT 04/20/2013 MANUEL CARVER MD N 244.9 HYPOTHYROIDISM 04/20/2013 MANUEL CARVER MD N 454.1 VARICOSE VEINS OF LOWER EXTREMITIES WITH INFLAMMATION 04/20/2013 MANUEL CARVER MD N V04.81 FLU SHOT 06/14/2013 MANUEL [...] DO V72.31 ROUTINE GYNECOLOGICAL EXAMINATION 07/24/2013 FLORENCIO DUMONT DDS V72.31 ROUTINE GYNECOLOGICAL EXAMINATION 07/24/2013 MANUEL [...] N 792.1 Hemoccult positive stool 05/24/2014 YESENIA BARTLETT GITA K 599.0 URINARY TRACT INFECTION 05/24/2014 [...] TOMLINSON MD Ot 414.01 CORONARY ATHEROSCLEROSIS OF [place] CORON 10/16/2014 CHANEL TOMLINSON MD Ot 416.8 [...] CHANEL TOMLINSON MD Ot V12.51 10/16/2014 CHANEL TOMLINSNO MD Ot 242.00 10/16/2014 CHANEL TOMLINSON MD [...] Landin Ot V12.51 12/10/2014 DAVI SMITH, CHANEL Lanidn Ot 242.00 12/10/2014 CHANEL TOMLINSON MD Ot [...] SANTIAGO GARZA Ot 162.9 05/09/2015 MARTIN MUHAMMAD BUSINESS RELATIONS MANAGER Ot 162.9 05/09/2015 MARTIN MUHAMMAD BUSINESS RELATIONS MANAGER Ot 196.9 05/09/2015 MARTIN MUHAMMAD BUSINESS RELATIONS MANAGER Ot 242.00 05/09/2015 MARTIN MUHAMMAD BUSINESS RELATIONS MANAGER Ot V58.69 05/09/2015 SANTIAGO GARZA Ot C34.90 05/09/2015 SANTIAGO GARZA Ot E05.00 05/09/2015 SANTIAGO GARZA Ot Z79.899 05/09/2015 MARTIN MUHAMMAD BUSINESS RELATIONS MANAGER Ot C34.90 05/09/2015 MARTIN MUHAMMAD BUSINESS RELATIONS MANAGER Ot E05.00 05/09/2015 MARTIN MUHAMMAD BUSINESS RELATIONS MANAGER Ot Z79.899 05/26/2015 RADHA HALL DO L Ot E05.00 05/26/2015 RADHA HALL DO L Ot R25.2 06/17/2015 MARTIN MUHAMMAD BUSINESS RELATIONS MANAGER Ot 162.9 06/17/2015 MARTIN MUHAMMAD BUSINESS RELATIONS MANAGER Ot 196.9 06/17/2015 MUHAMMAD, HILAH S BUSINESS RELATIONS MANAGER Ot 242.00 06/17/2015 MARTIN MUHAMMAD S BUSINESS RELATIONS MANAGER Ot V58.69 06/17/2015 KAYLA KELLEEAN N Ot C34.90 06/17/2015 KAYLA SANTIAGO N Ot E05.00 06/17/2015 KAYLA KELLEEAN N Ot Z79.899 06/17/2015 MARTIN MUHAMMAD S BUSINESS RELATIONS MANAGER Ot C34.90 06/17/2015 MARTIN MUHAMMAD S BUSINESS RELATIONS MANAGER Ot E05.00 06/17/2015 MARTIN MUHAMMAD S BUSINESS RELATIONS MANAGER Ot Z79.899 06/17/2015 [place] DO, RADHA L Ot E05.00 06/17/2015 [place] DO, RADHA L Ot E05.00 06/17/2015 [facility], RADHA L Ot R25.2 06/17/2015 KAYLA SANTIAGO N Ot C34.81 06/25/2015 MARTIN MUHAMMAD S BUSINESS RELATIONS MANAGER Ot 162.9 06/25/2015 MARTIN MUHAMMAD S BUSINESS RELATIONS MANAGER Ot 196.9 06/25/2015 MARTIN MUHAMMAD S BUSINESS RELATIONS MANAGER Ot 242.00 06/25/2015 MARTIN MUHAMMAD S BUSINESS RELATIONS MANAGER Ot V58.69 06/25/2015 KAYLA SANTIAGO N Ot C34.90 06/25/2015 KAYLA SANTIAGO N Ot E05.00 06/25/2015 KAYLA SANTIAGO N Ot Z79.899 06/25/2015 MARTIN MUHAMMAD S BUSINESS RELATIONS MANAGER Ot C34.90 06/25/2015 MARTIN MUHAMMAD S BUSINESS RELATIONS MANAGER Ot E05.00 06/25/2015 MARTIN MUHAMMAD S BUSINESS RELATIONS MANAGER Ot Z79.899 06/25/2015 [place] DO, RADHA L Ot E05.00 06/25/2015 [facility], RADHA L Ot E05.00 06/25/2015 [facility], RADHA L Ot R25.2 06/25/2015 KAYLASANTIAGO SOLARES N Ot C34.81 06/26/2015 KAYLAKELLEE SOLARESAN N Ot 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 06/26/2015 SANTIAGO GARZA N Ot E05.00 THYROTOXICOSIS W DIFFUSE GOITER W/O THYR 06/26/2015 SANTIAGO GARZA N Ot Z79.899 OTHER STEEL CHECKER (CURRENT) DRUG THERAPY 07/04/2015 MEHUL SMITH, MANUEL [...] GARZA Cristin Ot 162.9 07/04/2015 MARTIN MUHAMMAD BUSINESS RELATIONS MANAGER Ot 162.9 07/04/2015 MARTIN MUHAMMAD BUSINESS RELATIONS MANAGER Ot 196.9 07/04/2015 MARTIN MUHAMMAD BUSINESS RELATIONS MANAGER Ot 242.00 07/04/2015 MARTIN MUHAMMAD BUSINESS RELATIONS MANAGER Ot V58.69 07/04/2015 MARTIN MUHAMMAD BUSINESS RELATIONS MANAGER Ot C34.90 07/04/2015 MARTIN MUHAMMAD BUSINESS RELATIONS MANAGER Ot E05.00 07/04/2015 MARTIN MUHAMMAD BUSINESS RELATIONS MANAGER Ot Z79.899 07/04/2015 RADHA HALL DO Ot [...] N Ot Z79.899 09/17/2015 ANSLEY MUHAMMADAH S BUSINESS RELATIONS MANAGER Ot C34.81 09/17/2015 ANSLEY MUHAMMADAH S BUSINESS RELATIONS MANAGER Ot C79.89 09/17/2015 ANSLEY MUHAMMADHEATHER S BUSINESS RELATIONS MANAGER Ot E05.00 09/17/2015 MARTIN MUHAMMAD S BUSINESS RELATIONS MANAGER Ot L27.0 09/17/2015 ANSLEY MUHAMMADAH S BUSINESS RELATIONS MANAGER Ot T45.1X5A 09/17/2015 ANLSEY MUHAMMADHEATHER S BUSINESS RELATIONS MANAGER Ot Z79.899 09/18/2015 RAFAEL BARTLETTRADHA L Ot E05.00 09/18/2015 ANSLEY MUHAMMADHEATHER S BUSINESS RELATIONS MANAGER Ot C34.81 09/18/2015 ANSLEY MUHAMMADHEATHER S BUSINESS RELATIONS MANAGER Ot C79.89 09/18/2015 ANSLEY MUHAMMADHEATHER S BUSINESS RELATIONS MANAGER Ot E05.00 09/18/2015 ANSLEY MUHAMMADHEATHER S BUSINESS RELATIONS MANAGER Ot L27.0 09/18/2015 JB ANSLEYAH S BUSINESS RELATIONS MANAGER Ot T45.1X5A 09/18/2015 ANSLEY MUHAMMADAH S BUSINESS RELATIONS MANAGER Ot Z79.899 09/18/2015 KELLEE GARZAAN N Ot C34.81 09/18/2015 KAYLA, BOBAN N Ot E05.00 09/18/2015 KAYLA, BOBAN N Ot Z79.899 09/18/2015 Ot C34.81 09/23/2015 ANSLEY MUHAMMADAH S BUSINESS RELATIONS MANAGER Ot C34.81 09/23/2015 ANSLEY MUHAMMADAH S BUSINESS RELATIONS MANAGER Ot C79.89 09/23/2015 MARTIN MUHAMMAD S BUSINESS RELATIONS MANAGER Ot E05.00 09/23/2015 MARTIN MUHAMMAD S BUSINESS RELATIONS MANAGER Ot L27.0 09/23/2015 MARTIN MUHAMMAD BUSINESS RELATIONS MANAGER Ot T45.1X5A 09/23/2015 MARTIN MUHAMMAD BUSINESS RELATIONS MANAGER Ot Z79.899 10/01/2015 MARTIN MUHAMMAD BUSINESS RELATIONS MANAGER Ot C34.81 10/01/2015 MARTIN MUHAMMAD BUSINESS RELATIONS MANAGER Ot E05.00 10/01/2015 MARTIN MUHAMMAD BUSINESS RELATIONS MANAGER Ot L27.0 10/01/2015 MARTIN MUHAMMAD BUSINESS RELATIONS MANAGER Ot T45.1X5A 10/01/2015 MARTIN MUHAMMAD BUSINESS RELATIONS MANAGER Ot Z79.899 10/01/2015 HALL , RADHA L Ot E05.00 10/01/2015 RAFAEL BARTLETT, RADHA L Ot I10 10/01/2015 Ot C34.81 10/01/2015 HALL DO, RADHA L Ot E05.00 10/01/2015 MARTIN MUHAMMAD BUSINESS RELATIONS MANAGER Ot C34.81 10/03/2015 MARTIN MUHAMMAD BUSINESS RELATIONS MANAGER Ot C34.81 10/06/2015 MEHUL SMITH, MANUEL Amaral [...] N Ot 162.9 10/06/2015 JB MARTIN S BUSINESS RELATIONS MANAGER Ot 162.9 10/06/2015 JB MARTIN S BUSINESS RELATIONS MANAGER Ot 196.9 10/06/2015 JB MARTIN S BUSINESS RELATIONS MANAGER Ot 242.00 10/06/2015 JB MARTIN S BUSINESS RELATIONS MANAGER Ot V58.69 10/06/2015 JB MARTIN S BUSINESS RELATIONS MANAGER Ot C34.90 10/06/2015 JB MARTIN S BUSINESS RELATIONS MANAGER Ot E05.00 10/06/2015 ANSLEY MUHAMMADHEATHER S BUSINESS RELATIONS MANAGER Ot Z79.899 10/06/2015 JOIE HALL DOISON L Ot E05.00 10/06/2015 JOIE HALL DOISON L Ot E05.00 10/06/2015 JOIE HALL DOISON L Ot R25.2 10/06/2015 SANTIAGO GARZA N Ot C34.81 10/06/2015 ANSLEY MUHAMMADHEATHER S BUSINESS RELATIONS MANAGER Ot C34.81 10/06/2015 ANSLEY MUHAMMADHEATHER S BUSINESS RELATIONS MANAGER Ot E05.00 10/06/2015 MARTIN MUHAMMAD S BUSINESS RELATIONS MANAGER Ot L27.0 10/06/2015 ANSLEY MUHAMMADHEATHER S BUSINESS RELATIONS MANAGER Ot T45.1X5A 10/06/2015 MARTIN MUHAMMAD S BUSINESS RELATIONS MANAGER Ot Z79.899 10/06/2015 KAYLASANTIAGO N Ot C34.81 10/06/2015 KAYLAKELLEEAN N Ot E05.00 10/06/2015 KAYLAKELLEEAN N Ot Z79.899 10/06/2015 RAFAEL BARTLETT RADHA L Ot E05.00 10/06/2015 RAFAEL BARTLETT RADHA L Ot I10 10/06/2015 Ot C34.81 10/06/2015 RAFAEL BARTLETT RADHA L Ot E05.00 10/06/2015 MARTIN MUHAMMAD S BUSINESS RELATIONS MANAGER Ot C34.81 10/06/2015 ANSLEY MUHAMMADHEATHER S BUSINESS RELATIONS MANAGER Ot C79.89 10/06/2015 MARTIN MUHAMMAD BUSINESS RELATIONS MANAGER Ot E05.00 10/06/2015 MARTIN MUHAMMAD BUSINESS RELATIONS MANAGER Ot L27.0 10/06/2015 MARTIN MUHAMMAD BUSINESS RELATIONS MANAGER Ot T45.1X5A 10/06/2015 MARTIN MUHAMMAD BUSINESS RELATIONS MANAGER Ot Z79.899 10/06/2015 MARTIN MUHAMMAD BUSINESS RELATIONS MANAGER Ot C34.81 10/08/2015 RADHA HALL DO Ot E05.00 10/12/2015 KAYLASANTIAGO Ot 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 10/12/2015 SANTIAGO GARZA Ot E05.00 THYROTOXICOSIS W DIFFUSE GOITER W/O THYR 10/12/2015 SANTIAGO GARZA Ot Z79.899 OTHER FPC (CURRENT) DRUG THERAPY 11/11/2015 MARTIN MUHAMMAD BUSINESS RELATIONS MANAGER Ot C34.81 MALIGNANT NEOPLASM OF OVRLP SITES [...] MAL YENY BRONCH/LUNG NOS 11/19/2015 MARTIN MUHAMMAD BUSINESS RELATIONS MANAGER Ot 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 11/19/2015 MARTIN MUHAMMAD BUSINESS RELATIONS MANAGER Ot 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 11/19/2015 MARTIN MUHAMMAD BUSINESS RELATIONS MANAGER Ot 242.00 TOX DIF GOITER NO CRISIS 11/19/2015 MARTIN MUHAMMADP Ot V58.69 OTH MED,LT,CURRENT USE 11/19/2015 MARTIN MUHAMMAD BUSINESS RELATIONS MANAGER Ot 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 [facility] 11/19/2015 MARTIN MUHAMMADP Ot E05.00 THYROTOXICOSIS W DIFFUSE GOITER W/O THYR 11/19/2015 MARTIN MUHAMMADP Ot Z79.899 OTHER FPC (CURRENT) DRUG THERAPY 11/19/2015 RAFAEL BARTLETT RADHA [...] OVRLP SITES OF RIG 11/19/2015 MARTIN MUHAMMAD BUSINESS RELATIONS MANAGER Ot E05.00 THYROTOXICOSIS W DIFFUSE GOITER W/O THYR 11/19/2015 MARTIN MUHAMMAD BUSINESS RELATIONS MANAGER Ot L27.0 GEN SKIN ERUPTION DUE TO DRUGS AND MEDS 11/19/2015 MARTIN MUHAMMADP Ot T45.1X5A ADVERSE EFFECT OF ANTINEOPLASTIC AND IMM 11/19/2015 MARTIN MUHAMMAD BUSINESS RELATIONS MANAGER Ot Z79.899 OTHER FPC (CURRENT) DRUG THERAPY 11/19/2015 RAFAEL BARTLETT RADHA [...] DIFFUSE GOITER W/O THYR 11/19/2015 MARTIN MUHAMMAD BUSINESS RELATIONS MANAGER Ot L27.0 GEN SKIN ERUPTION DUE TO DRUGS AND MEDS 11/19/2015 MARTIN MUHAMMAD Ot T45.1X5A ADVERSE EFFECT OF ANTINEOPLASTIC AND IMM 11/19/2015 MARTIN MUHAMMAD Ot Z79.899 OTHER STEEL CHECKER (CURRENT) DRUG THERAPY 11/19/2015 MARTIN MUHAMMAD BUSINESS RELATIONS MANAGER Ot 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 11/19/2015 RAFAEL BARTLETT RADHA L Ot E05.00 THYROTOXICOSIS W DIFFUSE GOITER W/O THYR 11/19/2015 SANTIAGO GARZA Ot 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 11/19/2015 SANTIAGO GARZA Ot E05.00 THYROTOXICOSIS W DIFFUSE GOITER W/O THYR 11/19/2015 SANTIAGO GARZA Ot Z79.899 OTHER STEEL CHECKER (CURRENT) DRUG THERAPY 11/19/2015 SANTIAGO GARZA Ot 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 11/19/2015 SANTIAGO GARZA Ot E05.00 THYROTOXICOSIS W DIFFUSE GOITER W/O THYR 11/19/2015 SANTIAGO GARZA Ot Z79.899 OTHER STEEL CHECKER (CURRENT) DRUG THERAPY 11/20/2015 SANTIAGO GARZA Cristin Ot 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 11/20/2015 SANTIAGO GARZA Ot E05.00 THYROTOXICOSIS W DIFFUSE GOITER W/O THYR 11/20/2015 SANTIAGO GARZA Ot Z79.899 OTHER STEEL CHECKER (CURRENT) DRUG THERAPY 11/20/2015 MARTIN MUHAMMAD BUSINESS RELATIONS MANAGER Ot 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 11/20/2015 MARTIN MUHAMMAD BUSINESS RELATIONS MANAGER Ot E05.00 THYROTOXICOSIS W DIFFUSE GOITER W/O THYR 11/20/2015 MARTIN MUHAMMAD BUSINESS RELATIONS MANAGER Ot Z79.899 OTHER FPC (CURRENT) DRUG THERAPY 11/21/2015 MARTIN MUHAMMAD BUSINESS RELATIONS MANAGER Ot 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 11/21/2015 MARTIN MUHAMMAD BUSINESS RELATIONS MANAGER Ot C79.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 11/21/2015 MARTIN MUHAMMADP Ot E05.00 THYROTOXICOSIS W DIFFUSE GOITER W/O THYR 11/21/2015 MARTIN MUHAMMADP Ot R21 RASH AND OTHER NONSPECIFIC SKIN ERUPTION 11/21/2015 MARTIN MUHAMMAD BUSINESS RELATIONS MANAGER Ot Z79.899 OTHER FPC (CURRENT) DRUG THERAPY 11/21/2015 MARTIN MUHAMMAD BUSINESS RELATIONS MANAGER Ot 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 11/21/2015 MARTIN MUHAMMAD BUSINESS RELATIONS MANAGER Ot C79.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 11/21/2015 MARTIN MUHAMMADP Ot E05.00 THYROTOXICOSIS W DIFFUSE GOITER W/O THYR 11/21/2015 MARTIN MUHAMMAD BUSINESS RELATIONS MANAGER Ot R21 RASH AND OTHER NONSPECIFIC SKIN ERUPTION 11/21/2015 MARTIN MUHAMMAD BUSINESS RELATIONS MANAGER Ot Z79.899 OTHER STEEL CHECKER (CURRENT) DRUG THERAPY 11/27/2015 MARTIN MUHAMMAD BUSINESS RELATIONS MANAGER Ot 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 11/27/2015 MARTIN MUHAMMAD BUSINESS RELATIONS MANAGER Ot C79.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 11/27/2015 MARTIN MUHAMMADP Ot E05.00 THYROTOXICOSIS W DIFFUSE GOITER W/O THYR 11/27/2015 MARTIN MUHAMMAD BUSINESS RELATIONS MANAGER Ot L27.0 GEN SKIN ERUPTION DUE TO DRUGS AND MEDS 11/27/2015 MARTIN MUHAMMAD BUSINESS RELATIONS MANAGER Ot T45.1X5A ADVERSE EFFECT OF ANTINEOPLASTIC AND IMM 11/27/2015 MARTIN MUHAMMAD BUSINESS RELATIONS MANAGER Ot Z79.899 OTHER FPC (CURRENT) DRUG THERAPY 11/27/2015 RADHA HALL DO Ot E05.00 THYROTOXICOSIS W DIFFUSE GOITER W/O THYR 12/25/2015 MRATIN MUHAMMADP Ot 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 12/25/2015 MARTIN MUHAMMADP Ot C79.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 12/25/2015 MARTIN MUHAMMADP Ot E05.00 THYROTOXICOSIS W DIFFUSE GOITER W/O THYR 12/25/2015 MARTIN MUHAMMADP Ot L27.0 GEN SKIN ERUPTION DUE TO DRUGS AND MEDS 12/25/2015 MARTIN MUHAMMADP Ot T45.1X5A ADVERSE EFFECT OF ANTINEOPLASTIC AND IMM 12/25/2015 MARTIN MUHAMMAD BUSINESS RELATIONS MANAGER Ot Z79.899 OTHER STEEL CHECKER (CURRENT) DRUG THERAPY 12/25/2015 RADHA HALL DO [...] DIFFUSE GOITER W/O THYR 01/08/2016 MARTIN MUHAMMAD BUSINESS RELATIONS MANAGER Ot 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 01/08/2016 MARTIN MUHAMMAD BUSINESS RELATIONS MANAGER Ot C79.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 01/08/2016 MARTIN MUHAMMADP Ot E05.00 THYROTOXICOSIS W DIFFUSE GOITER W/O THYR 01/08/2016 MARTIN MUHAMMAD BUSINESS RELATIONS MANAGER Ot R21 RASH AND OTHER NONSPECIFIC SKIN ERUPTION 01/08/2016 MARTIN MUHAMMADP Ot Z79.899 OTHER STEEL CHECKER (CURRENT) DRUG THERAPY 01/08/2016 DAVI SMITH, CHANEL [...] ERUPTION 01/08/2016 MARTIN MUHAMMADP Ot Z79.899 OTHER STEEL CHECKER (CURRENT) DRUG THERAPY 01/08/2016 MARTIN MUHAMMADP Ot 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 01/08/2016 MARTIN MUHAMMADP Ot E05.00 THYROTOXICOSIS W DIFFUSE GOITER W/O THYR 01/08/2016 MARTIN MUHAMMADP Ot Z79.899 OTHER FPC (CURRENT) DRUG THERAPY 01/09/2016 CHANEL TOMLINSON MD Ot E05.00 THYROTOXICOSIS W DIFFUSE GOITER W/O THYR 01/28/2016 MARTIN MUHAMMADP Ot 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 01/28/2016 MARTIN MUHAMMADP Ot 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 01/28/2016 MARTIN MUHAMMADP Ot 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 01/28/2016 MARTIN MUHAMMAD BUSINESS RELATIONS MANAGER Ot C79.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 01/28/2016 MARTIN MUHAMMADP Ot E05.00 THYROTOXICOSIS W DIFFUSE GOITER W/O THYR 01/28/2016 MARTIN MUHAMMAD Ot R21 RASH AND OTHER NONSPECIFIC SKIN ERUPTION 01/28/2016 MARTIN MUHAMMADP Ot Z79.899 OTHER STEEL CHECKER (CURRENT) DRUG THERAPY 01/28/2016 JOIE HALL DOISON L Ot E05.00 THYROTOXICOSIS W DIFFUSE GOITER W/O THYR 01/28/2016 RADHA HALL DO Ot M54.2 CERVICALGIA 01/28/2016 DAVI SMITH, CHANEL Landin Ot E05.00 THYROTOXICOSIS W DIFFUSE GOITER W/O THYR 01/29/2016 MARTIN MUHAMMAD BUSINESS RELATIONS MANAGER Ot 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 02/03/2016 JOIE HALL DOISON L Ot E05.00 THYROTOXICOSIS W DIFFUSE GOITER W/O THYR 02/17/2016 SANTIAGO GARZA Ot 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 02/17/2016 SANTIAGO GARZA Ot E05.00 THYROTOXICOSIS W DIFFUSE GOITER W/O THYR 02/17/2016 SANTIAGO GARZA Ot Z79.899 OTHER FPC (CURRENT) DRUG THERAPY 02/24/2016 MARTIN MUHAMMADP Ot 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 02/24/2016 MARTIN MUHAMMADP Ot E05.00 THYROTOXICOSIS W DIFFUSE GOITER W/O THYR 02/24/2016 MARTIN MUHAMMADP Ot Z79.899 OTHER FPC (CURRENT) DRUG THERAPY 02/25/2016 JOIE HALL DOISON L Ot E05.00 THYROTOXICOSIS W DIFFUSE GOITER W/O THYR 03/24/2016 SANTIAGO GARZA Ot 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899 OTHER STEEL CHECKER (CURRENT) DRUG THERAPY 05/12/2016 RADHA HALL DO Ot E05.00 THYROTOXICOSIS W DIFFUSE GOITER W/O THYR 05/12/2016 KAYLASANTIAGO Ot 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 05/12/2016 KAYLA KELLEEMEENAKSHI Cristin Ot E05.00 THYROTOXICOSIS W DIFFUSE GOITER W/O THYR 05/12/2016 KAYLA KELLEEMEENAKSHI N Ot Z79.899 OTHER STEEL CHECKER (CURRENT) DRUG THERAPY 06/07/2016 MARTIN MUHAMMAD BUSINESS RELATIONS MANAGER Ot 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 06/08/2016 MARTIN MUHAMMAD BUSINESS RELATIONS MANAGER Ot 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 06/10/2016 MARTIN MUHAMMAD BUSINESS RELATIONS MANAGER Ot 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 06/27/2016 SANTIAGO GARZA Ot 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 06/27/2016 KAYLASANTIAGO N Ot E05.00 THYROTOXICOSIS W DIFFUSE GOITER W/O THYR 06/27/2016 SANTIAGO GARZA Ot Z23 ENCOUNTER FOR IMMUNIZATION 06/27/2016 SANTIAGO GARZA N Ot Z79.899 OTHER FPC (CURRENT) DRUG THERAPY 07/06/2016 SANTIAGO GARZA N [...] 08/31/2016 SANTIAGO GARZA Cristin Ot Z79.899 OTHER FPC (CURRENT) DRUG THERAPY 09/03/2016 Ot C34.81 MALIGNANT [...] MUHAMMADP Ot I25.10 ATHSCL HEART DISEASE OF [place] CORONARY 11/09/2016 MARTIN MUHAMMADP Ot 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 PULMONARY HYPERTENSION 11/09/2016 MARTIN MUHAMMADP Ot Z79.899 OTHER STEEL CHECKER (CURRENT) DRUG THERAPY 11/23/2016 MARTIN MUHAMMAD BUSINESS RELATIONS MANAGER Ot 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 11/23/2016 MARTIN MUHAMMAD BUSINESS RELATIONS MANAGER Ot R52 PAIN, UNSPECIFIED 11/28/2016 SANTIAGO GARZA N Ot 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 11/28/2016 KAYLA KELLEEMEENAKSHI N Ot C79.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 11/28/2016 KAYLA KELLEEMEENAKSHI N Ot E05.00 THYROTOXICOSIS W DIFFUSE GOITER W/O THYR 11/28/2016 SANTIAGO GARZA N Ot I25.10 ATHSCL HEART DISEASE OF [place] CORONARY 11/28/2016 KAYLA, SANTIAGO N Ot 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 PULMONARY HYPERTENSION 11/28/2016 KAYLA, SANTIAGO N Ot M54.6 PAIN IN THORACIC SPINE 11/28/2016 KAYLA, SANTIAGO N Ot R05 COUGH 11/28/2016 KAYLAKELLEEAN N Ot Z79.899 OTHER STEEL CHECKER (CURRENT) DRUG THERAPY 11/29/2016 KAYLA SANTIAGO N Ot 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 11/29/2016 KAYLA KELLEEMEENAKSHI N Ot C79.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 11/29/2016 KAYLA, KELLEEMEENAKSHI N Ot E05.00 THYROTOXICOSIS W DIFFUSE GOITER W/O THYR 11/29/2016 KAYLA KELLEEAN N Ot I25.10 ATHSCL HEART DISEASE OF [place] CORONARY 11/29/2016 KAYLA SANTIAGO N Ot 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 PULMONARY HYPERTENSION 11/29/2016 KAYLA SANTIAGO N Ot M54.6 PAIN IN THORACIC SPINE 11/29/2016 KAYLA SANTIAGO N Ot R05 COUGH 11/29/2016 KAYLA KELLEEAN N Ot Z79.899 OTHER FPC (CURRENT) DRUG THERAPY 12/03/2016 KAYLASANTIAGO N Ot 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 12/03/2016 KAYLA, SANTIAGO N Ot E05.00 THYROTOXICOSIS W DIFFUSE GOITER W/O THYR 12/03/2016 KAYLAKELLEEAN N Ot Z79.899 OTHER STEEL CHECKER (CURRENT) DRUG THERAPY 12/08/2016 KAYLASANTIAGO N Ot 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 12/08/2016 SANTIAGO GARZA Ot E05.00 THYROTOXICOSIS W DIFFUSE GOITER W/O THYR 12/08/2016 SANTIAGO GARZA Cristin Ot Z79.899 OTHER STEEL CHECKER (CURRENT) DRUG THERAPY 12/31/2016 SANTIAGO GARZA Cristin Ot 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 12/31/2016 SANTIAGO GARZA Cristin Ot E05.00 THYROTOXICOSIS W DIFFUSE GOITER W/O THYR 12/31/2016 SANTIAGO GARZA Cristin Ot Z79.899 OTHER STEEL CHECKER (CURRENT) DRUG THERAPY 01/03/2017 SANTIAGO GARZA N Ot 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 01/03/2017 SANTIAGO GARZA Cristin Ot E05.00 THYROTOXICOSIS W DIFFUSE GOITER W/O THYR 01/03/2017 SANTIAGO GARZA Cristin Ot E80.6 OTHER DISORDERS OF BILIRUBIN METABOLISM 01/03/2017 KAYLA, KELLEEMEENAKSHI Cristin Ot I25.10 ATHSCL HEART DISEASE OF [place] CORONARY 01/03/2017 KAYLASANTIAGO Ot 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 PULMONARY HYPERTENSION 01/03/2017 SANTIAGO GARZA Cristin Ot Z79.899 OTHER STEEL CHECKER (CURRENT) DRUG THERAPY 01/03/2017 SANTIAGO GARZA Cristin Ot Z82.49 FAMILY HX OF [place] HEART DIS AND OTH DI 01/07/2017 LATRICE EUBANKS Ot 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 01/07/2017 LATRICE EUBANKS Ot I25.10 ATHSCL HEART DISEASE OF [place] CORONARY 01/07/2017 LATRICE EUBANKS Ot R00.2 PALPITATIONS 01/07/2017 LATRICE EUBANKS Ot R06.02 SHORTNESS OF BREATH 02/07/2017 LATRICE EUBANKS Ot 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 02/07/2017 LATRICE EUBANKS Ot I25.10 ATHSCL HEART DISEASE OF [place] CORONARY 02/07/2017 LATRICE EUBANKS Ot R00.2 PALPITATIONS [...] EUBANKS Ot I25.10 ATHSCL HEART DISEASE OF [place] CORONARY 03/01/2017 LATRICE EUBANKS Ot R00.2 PALPITATIONS 03/01/2017 LATRICE EUBANKS Ot R06.02 SHORTNESS OF BREATH 03/03/2017 SANTIAGO GARZA Ot 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 03/03/2017 SANTIAGO GARZA Ot E05.00 THYROTOXICOSIS W DIFFUSE GOITER W/O THYR 03/03/2017 SANTIAGO GARZA Ot E80.6 OTHER DISORDERS OF BILIRUBIN METABOLISM 03/03/2017 SANTIAGO GARZA Ot I25.10 ATHSCL HEART DISEASE OF [place] CORONARY 03/03/2017 SANTIAGO GARZA Ot 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 PULMONARY HYPERTENSION 03/03/2017 SANTIAGO GARZA Ot Z79.899 OTHER STEEL CHECKER (CURRENT) DRUG THERAPY 03/03/2017 SANTIAGO GARZA Ot Z82.49 FAMILY HX OF [place] HEART DIS AND OTH DI 03/04/2017 SANTIAGO GARZA Ot 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 03/04/2017 SANTIAGO GARZA Ot E05.00 THYROTOXICOSIS W DIFFUSE GOITER W/O THYR 03/04/2017 SANTIAGO GARZA Ot E80.6 OTHER DISORDERS OF BILIRUBIN METABOLISM 03/04/2017 SANTIAGO GARZA Ot I25.10 ATHSCL HEART DISEASE OF [place] CORONARY 03/04/2017 SANTIAGO GARZA Ot 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 PULMONARY HYPERTENSION 03/04/2017 KAYLA SANTIAGO N Ot Z79.899 OTHER STEEL CHECKER (CURRENT) DRUG THERAPY 03/04/2017 KAYLA SANTIAGO N Ot Z82.49 FAMILY HX OF [place] HEART DIS AND OTH DI 03/08/2017 MUHAMMADMARTIN Lawrence S BUSINESS RELATIONS MANAGER Ot 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 03/08/2017 MUHAMMADMARTIN Lawrence BUSINESS RELATIONS MANAGER Ot I26.99 OTHER PULMONARY EMBOLISM WITHOUT ACUTE C 03/08/2017 MARTIN MUHAMMAD S BUSINESS RELATIONS MANAGER Ot K76.89 OTHER SPECIFIED DISEASES OF L[place] 03/08/2017 MUHAMMADMARTIN Lawrence S BUSINESS RELATIONS MANAGER Ot R91.8 OTHER NONSPECIFIC ABNORMAL FINDING OF [place] 03/10/2017 KAYLA, SANTIAGO N Ot 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 03/10/2017 KAYLA SANTIAGO N Ot E05.00 THYROTOXICOSIS W DIFFUSE GOITER W/O THYR 03/10/2017 KAYLASANTIAGO N Ot E80.6 OTHER DISORDERS OF BILIRUBIN METABOLISM 03/10/2017 KAYLASANTIAGO N Ot I25.10 ATHSCL HEART DISEASE OF [place] CORONARY 03/10/2017 KAYLA SANTIAGO N Ot 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 PULMONARY HYPERTENSION 03/10/2017 KAYLA, SANTIAGO N Ot Z79.899 OTHER STEEL CHECKER (CURRENT) DRUG THERAPY 03/10/2017 KAYLA SANTIAGO N Ot Z82.49 FAMILY HX OF [place] HEART DIS AND OTH DI 03/10/2017 KAYLASANTAIGO N Ot 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00 THYROTOXICOSIS W DIFFUSE GOITER W/O THYR 03/14/2017 KAYLA, SANTIAGO N Ot E80.6 OTHER DISORDERS OF BILIRUBIN METABOLISM 03/14/2017 KAYLA SANTIAGO Amaral Ot I25.10 ATHSCL HEART DISEASE OF [place] CORONARY 03/14/2017 KAYLA, SANTIAGO N Ot 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 PULMONARY HYPERTENSION 03/14/2017 KAYLA, SANTIAGO Amaral Ot Z79.899 OTHER STEEL CHECKER (CURRENT) DRUG THERAPY 03/14/2017 KAYLA, SANTIAGO N Ot Z82.49 FAMILY HX OF [place] HEART DIS AND OTH DI 03/18/2017 MARTIN MUHAMMAD BUSINESS RELATIONS MANAGER Ot 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 03/18/2017 MARTIN MUHAMMAD BUSINESS RELATIONS MANAGER Ot I26.99 OTHER PULMONARY EMBOLISM WITHOUT ACUTE C 03/18/2017 MARTIN MUHAMMAD BUSINESS RELATIONS MANAGER Ot K76.89 OTHER SPECIFIED DISEASES OF LIVER 03/18/2017 MARTIN MUHAMMAD BUSINESS RELATIONS MANAGER Ot R91.8 OTHER NONSPECIFIC ABNORMAL FINDING OF [place] 03/26/2017 SANTIAGO GARAZ Ot 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 03/26/2017 KAYLA, SANTIAGO Amaral Ot E05.00 THYROTOXICOSIS W DIFFUSE GOITER W/O THYR 03/26/2017 KAYLA, SANTIAGO Amaral Ot E80.6 OTHER DISORDERS OF BILIRUBIN METABOLISM 03/26/2017 KAYLA, SANTIAGO Amaral Ot I25.10 ATHSCL HEART DISEASE OF [place] CORONARY 03/26/2017 KAYLA, SANTIAGO Amaral Ot 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 PULMONARY HYPERTENSION 03/26/2017 KAYLA, SANTIAGO Amaral Ot Z79.899 OTHER STEEL CHECKER (CURRENT) DRUG THERAPY 03/26/2017 SANTIAGO GARZA Ot Z82.49 FAMILY HX OF [place]HE[place] HEART DIS AND OTH DI 04/11/2017 KAYLA SANTIAGO N Ot 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 04/11/2017 KAYLA, SANTIAGO N Ot E05.00 THYROTOXICOSIS W DIFFUSE GOITER W/O THYR 04/11/2017 SANTIAGO GARZA N Ot E80.6 OTHER DISORDERS OF BILIRUBIN METABOLISM 04/11/2017 SANTIAGO GARZA Cristin Ot I25.10 ATHSCL HEART DISEASE OF [place] CORONARY 04/11/2017 SANTIAGO GARZA N Ot I27.20 PULMONARY HYPERTENSION, UNSPECIFIED 04/11/2017 SANTIAGO GARZA N Ot Z79.899 OTHER FPC (CURRENT) DRUG THERAPY 04/11/2017 SANTIAGO GARZA N [...] N Ot I25.10 ATHSCL HEART DISEASE OF [place] CORONARY 05/11/2017 SANTIAGO GARZA N Ot I27.20 PULMONARY HYPERTENSION, UNSPECIFIED 05/11/2017 SANTIAGO GARZA N Ot Z79.899 OTHER FPC (CURRENT) DRUG THERAPY 05/11/2017 SANTIAGO GARZA N [...] MD Ot I25.10 ATHSCL HEART DISEASE OF [place] CORONARY 05/12/2017 CHRISTOPHER OLIVA MD Ot I27.20 PULMONARY HYPERTENSION, UNSPECIFIED 05/12/2017 CHRISTOPHER OLIVA MD Ot Z79.899 OTHER STEEL CHECKER (CURRENT) DRUG THERAPY 05/12/2017 CHRISTOPHER OLIVA MD [...] MAL YENY BRONCH/LUNG NOS 06/10/2017 MARTIN MUHAMMAD BUSINESS RELATIONS MANAGER Ot 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 06/10/2017 MARTIN MUHAMMAD BUSINESS RELATIONS MANAGER Ot 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 06/10/2017 MARTIN MUHAMMAD BUSINESS RELATIONS MANAGER Ot 242.00 TOX DIF GOITER NO CRISIS 06/10/2017 MARTIN MUHAMMAD BUSINESS RELATIONS MANAGER Ot V58.69 OT MED,LT,CURRENT USE 06/10/2017 MARTIN MUHAMMAD BUSINESS RELATIONS MANAGER Ot 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 06/10/2017 MARTIN MUHAMMAD BUSINESS RELATIONS MANAGER Ot E05.00 THYROTOXICOSIS W DIFFUSE GOITER W/O THYR 06/10/2017 MARTIN MUHAMMAD Ot Z79.899 OTHER FPC (CURRENT) DRUG THERAPY 06/10/2017 RAFAEL BARTLETT RADHA [...] IMM 06/10/2017 MARTIN MUHAMMAD Ot Z79.899 OTHER FPC (CURRENT) DRUG THERAPY 06/10/2017 RAFAEL BARTLETTJOIERADHA L [...] ERUPTION 06/10/2017 MARTIN MUHAMMAD Ot Z79.899 OTHER STEEL CHECKER (CURRENT) DRUG THERAPY 06/10/2017 MARTIN MUHAMMAD Ot 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 06/10/2017 MARTIN MUHAMMADP Ot E05.00 THYROTOXICOSIS W DIFFUSE GOITER W/O THYR 06/10/2017 MARTIN MUHAMMAD Ot Z79.899 OTHER STEEL CHECKER (CURRENT) DRUG THERAPY 06/10/2017 DAVI SMITH, CHANEL [...] MUHAMMAD Ot I25.10 ATHSCL HEART DISEASE OF [place] CORONARY 06/10/2017 MARTIN MUHAMMAD S BUSINESS RELATIONS MANAGER Ot 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 PULMONARY HYPERTENSION 06/10/2017 MARTIN MUHAMMAD Howard BUSINESS RELATIONS MANAGER Ot Z79.899 OTHER STEEL CHECKER (CURRENT) DRUG THERAPY 06/10/2017 MARTIN MUHAMMAD Howard BUSINESS RELATIONS MANAGER Ot 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 06/10/2017 ANSLEY MUHAMMADHEATHER Lawrence BUSINESS RELATIONS MANAGER Ot R52 PAIN, UNSPECIFIED 06/10/2017 SANTIAGO GARZA Ot 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 06/10/2017 SANTIAGO GARZA Ot Z51.11 ENCOUNTER FOR ANTINEOPLASTIC CHEMOTHERAP 06/10/2017 LATRICE EUBANKS Ot 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 06/10/2017 LATRICE EUBANKS Ot I25.10 ATHSCL HEART DISEASE OF [place] CORONARY 06/10/2017 LATRICE EUBANKS Ot R00.2 PALPITATIONS 06/10/2017 LATRICE EUBANKS Ot R06.02 SHORTNESS OF BREATH 06/10/2017 ANSLEY MUHAMMADHEATHER Howard BUSINESS RELATIONS MANAGER Ot 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 06/10/2017 MARTIN MUHAMMAD BUSINESS RELATIONS MANAGER Ot I26.99 OTHER PULMONARY EMBOLISM WITHOUT ACUTE C 06/10/2017 MARTIN MUHAMMAD BUSINESS RELATIONS MANAGER Ot K76.89 OTHER SPECIFIED DISEASES OF LIVER 06/10/2017 ANSLEY MUHAMMADHEATHER Howard BUSINESS RELATIONS MANAGER Ot R91.8 OTHER NONSPECIFIC ABNORMAL FINDING OF [place] 06/10/2017 CHRITSOPHER OLIVA MD Ot 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 06/10/2017 CHRISTOPHER OLIVA MD Ot E05.00 THYROTOXICOSIS W DIFFUSE GOITER W/O THYR 06/10/2017 CHRISTOPHER OLIVA MD Ot E80.6 OTHER DISORDERS OF BILIRUBIN METABOLISM 06/10/2017 CHRISTOPHER OLIVA MD Ot I25.10 ATHSCL HEART DISEASE OF [place] CORONARY 06/10/2017 CHRISTOPHER OLIVA MD Ot I27.20 PULMONARY HYPERTENSION, UNSPECIFIED 06/10/2017 CHRISTOPHER OLIVA MD Ot Z79.899 OTHER STEEL CHECKER (CURRENT) DRUG THERAPY 06/10/2017 CHRISTOPHER OLIVA MD [...] MD Ot I25.10 ATHSCL HEART DISEASE OF [place] CORONARY 06/10/2017 CHRISTOPHER OLIVA MD Ot I27.20 PULMONARY HYPERTENSION, UNSPECIFIED 06/10/2017 CHRISTOPHER OLIVA MD Ot Z79.899 OTHER FPC (CURRENT) DRUG THERAPY 06/10/2017 CHRISTOPHER OLIVA MD [...] N Ot I25.10 ATHSCL HEART DISEASE OF [place] CORONARY 06/10/2017 KAYLASANTIAGO SOLARES N Ot I27.20 PULMONARY HYPERTENSION, UNSPECIFIED 06/10/2017 KAYLASANTIAGO SOLARES N Ot Z79.899 OTHER STEEL CHECKER (CURRENT) DRUG THERAPY 06/10/2017 KAYLAKELLEE SOLARESAN N [...] N Ot I25.10 ATHSCL HEART DISEASE OF [place] CORONARY 06/14/2017 KAYLA, BOBAN N Ot I27.20 PULMONARY HYPERTENSION, UNSPECIFIED 06/14/2017 KAYLA, BOBAN N Ot Z79.899 OTHER STEEL CHECKER (CURRENT) DRUG THERAPY 06/14/2017 KAYLA, SANTIAGO N Ot Z82.49 FAMILY HX OF [place] HEART DIS AND OTH DI 07/07/2017 KAYLASANTIAGO N Ot 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 07/07/2017 KAYLASANTIAGO N Ot E05.00 THYROTOXICOSIS W DIFFUSE GOITER W/O THYR 07/07/2017 KAYLASANTIAGO N Ot E80.6 OTHER DISORDERS OF BILIRUBIN METABOLISM 07/07/2017 KAYLASANTIAGO N Ot I25.10 ATHSCL HEART DISEASE OF [place] CORONARY 07/07/2017 KAYLASANTIAGO N Ot I27.20 PULMONARY HYPERTENSION, UNSPECIFIED 07/07/2017 KAYLASANTIAGO N Ot Z79.899 OTHER STEEL CHECKER (CURRENT) DRUG THERAPY 07/07/2017 KAYLASANTIAGO N Ot [...] N Ot I25.10 ATHSCL HEART DISEASE OF [place] CORONARY 08/05/2017 KAYLASANTIAGO SOLARES N Ot I27.20 PULMONARY HYPERTENSION, UNSPECIFIED 08/05/2017 KAYLASANTIAGO SOLARES N Ot Z79.899 OTHER STEEL CHECKER (CURRENT) DRUG THERAPY 08/05/2017 KAYLASANTIAGO SOLARES N [...] MAL YENY BRONCH/LUNG NOS 08/05/2017 MARTIN MUHAMMAD BUSINESS RELATIONS MANAGER Ot 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 08/05/2017 MARTIN MUHAMMAD BUSINESS RELATIONS MANAGER Ot 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 08/05/2017 MARTIN MUHAMMAD BUSINESS RELATIONS MANAGER Ot 242.00 TOX DIF GOITER NO CRISIS 08/05/2017 MARTIN MUHAMMAD BUSINESS RELATIONS MANAGER Ot V58.69 OT MED,LT,CURRENT USE 08/05/2017 MARTIN MUHAMMAD Ot 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 08/05/2017 MARTIN MUHAMMADP Ot E05.00 THYROTOXICOSIS W DIFFUSE GOITER W/O THYR 08/05/2017 MARTIN MUHAMMAD Ot Z79.899 OTHER STEEL CHECKER (CURRENT) DRUG THERAPY 08/05/2017 RAFAEL BARTLETT, RADHA [...] IMM 08/05/2017 MARTIN MUHAMMAD Ot Z79.899 OTHER FPC (CURRENT) DRUG THERAPY 08/05/2017 RAFAEL BARTLETT, RADHA [...] ERUPTION 08/05/2017 MARTIN MUHAMMAD Ot Z79.899 OTHER STEEL CHECKER (CURRENT) DRUG THERAPY 08/05/2017 MARTIN MUHAMMAD Ot 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 08/05/2017 MARTIN MUHAMMAD Ot E05.00 THYROTOXICOSIS W DIFFUSE GOITER W/O THYR 08/05/2017 MARTIN MUHAMMAD Ot Z79.899 OTHER STEEL CHECKER (CURRENT) DRUG THERAPY 08/05/2017 DAVI SMITH, CHANEL [...] GOITER W/O THYR 08/05/2017 MUHAMMAD, HILAH S BUSINESS RELATIONS MANAGER Ot 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 08/05/2017 ANSLEY MUHAMMADHEATHER Lawrence BUSINESS RELATIONS MANAGER Ot I25.10 ATHSCL HEART DISEASE OF [place] CORONARY 08/05/2017 ANSLEY MUHAMMADHEATHER Lawrence BUSINESS RELATIONS MANAGER Ot 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 PULMONARY HYPERTENSION 08/05/2017 MUHAMMAD MARTIN Lawrence BUSINESS RELATIONS MANAGER Ot Z79.899 OTHER FPC (CURRENT) DRUG THERAPY 08/05/2017 MARTIN MUHAMMAD BUSINESS RELATIONS MANAGER Ot 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 08/05/2017 MARTIN MUHAMMADP Ot R52 PAIN, UNSPECIFIED 08/05/2017 SANTIAGO GARZA Ot 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 08/05/2017 SANTIAGO GARZA Ot Z51.11 ENCOUNTER FOR ANTINEOPLASTIC CHEMOTHERAP 08/05/2017 LATRICE EUBANKS Ot 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 08/05/2017 LATRICE EUBANKS Ot I25.10 ATHSCL HEART DISEASE OF [place] CORONARY 08/05/2017 LATRICE EUBANKS Ot R00.2 PALPITATIONS 08/05/2017 LATRICE EUBANKS Ot R06.02 SHORTNESS OF BREATH 08/05/2017 MARTIN MUHAMMADP Ot 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 08/05/2017 JB MARTIN Lawrence BUSINESS RELATIONS MANAGER Ot I26.99 OTHER PULMONARY EMBOLISM WITHOUT ACUTE C 08/05/2017 ANSLEY MUHAMMADHEATHER Howard BUSINESS RELATIONS MANAGER Ot K76.89 OTHER SPECIFIED DISEASES OF LIVER 08/05/2017 ANSLEY MUHAMMADHEATHER Lawrence BUSINESS RELATIONS MANAGER Ot R91.8 OTHER NONSPECIFIC ABNORMAL FINDING OF [place] 08/05/2017 RADHA HALL DO Ot E03.2 HYPOTHYROIDISM DUE TO MEDS AND OTH EXOGE 08/05/2017 SANTIAGO GARZA Ot 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 08/05/2017 SANTIAGO GARZA Ot E05.00 THYROTOXICOSIS W DIFFUSE GOITER W/O THYR 08/05/2017 SANTIAGO GARZA Ot E80.6 OTHER DISORDERS OF BILIRUBIN METABOLISM 08/05/2017 SANTIAGO GARZA Ot I25.10 ATHSCL HEART DISEASE OF [place] CORONARY 08/05/2017 SANTIAGO GARZA Cristin Ot I27.20 PULMONARY HYPERTENSION, UNSPECIFIED 08/05/2017 SANTIAGO GARZA Cristin Ot Z79.899 OTHER FPC (CURRENT) DRUG THERAPY 08/05/2017 SANTIAGO GARZA Cristin Ot Z82.49 FAMILY HX OF [place] HEART DIS AND OTH DI 08/05/2017 SANTIAGO GARZA Cristin Ot 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 OF [facility] PART OF [facility] 08/31/2017 MANUEL CARVER MD Ot V76.12 [...] MD Ot 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 [facility] 08/31/2017 CHANEL TOMLINSON MD Ot 785.1 PALPITATIONS 08/31/2017 CHANEL TOMLINSON MD Ot 786.05 SHORTNESS OF BREATH 08/31/2017 KAYLIE HAMPTON DO Ot 416.8 CHR PULMON HEART DIS NEC 08/31/2017 KAYLIE HAMPTON DO Ot 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 [facility] 08/31/2017 KAYLIE HAMPTON DO Ot 786.05 [...] THYR 08/31/2017 MARTIN MUHAMMAD Ot Z79.899 OTHER FPC (CURRENT) DRUG THERAPY 08/31/2017 RADHA HALL DO [...] IMM 08/31/2017 MARTIN MUHAMMADP Ot Z79.899 OTHER FPC (CURRENT) DRUG THERAPY 08/31/2017 RADHA HALL DO [...] ERUPTION 08/31/2017 MARTIN MUHAMMAD Ot Z79.899 OTHER FPC (CURRENT) DRUG THERAPY 08/31/2017 MARTIN MUHAMMAD Ot 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 08/31/2017 MARTIN MUHAMMAD Ot E05.00 THYROTOXICOSIS W DIFFUSE GOITER W/O THYR 08/31/2017 MARTIN MUHAMMADP Ot Z79.899 OTHER STEEL CHECKER (CURRENT) DRUG THERAPY 08/31/2017 DAVI SMITH, CHANEL [...] DIFFUSE GOITER W/O THYR 08/31/2017 MARTIN MUHAMMAD BUSINESS RELATIONS MANAGER Ot C34.81 MALIGNANT NEOPLASM OF OVRLP SITES [...] DIFFUSE GOITER W/O THYR 08/31/2017 MARTIN MUHAMMAD BUSINESS RELATIONS MANAGER Ot 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 08/31/2017 MARTIN MUHAMMADP Ot I25.10 ATHSCL HEART DISEASE OF [place] CORONARY 08/31/2017 MARTIN MUHAMMADP Ot 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 PULMONARY HYPERTENSION 08/31/2017 MARTNI MUHAMMADP Ot Z79.899 OTHER FPC (CURRENT) DRUG THERAPY 08/31/2017 MARTIN MUHAMMADP Ot [...] EUBANKS Ot I25.10 ATHSCL HEART DISEASE OF [place] CORONARY 08/31/2017 LATRICE EUBANKS Ot R00.2 PALPITATIONS 08/31/2017 LATRICE EUBANKS Ot R06.02 SHORTNESS OF BREATH 08/31/2017 MARTIN MUHAMMADP Ot 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 08/31/2017 MARTIN MUHAMMAD BUSINESS RELATIONS MANAGER Ot I26.99 OTHER PULMONARY EMBOLISM WITHOUT ACUTE C 08/31/2017 MARTIN MUHAMMAD BUSINESS RELATIONS MANAGER Ot K76.89 OTHER SPECIFIED DISEASES OF LIVER 08/31/2017 ANSLEY MUHAMMADAH S [facility] Ot R91.8 OTHER NONSPECIFIC ABNORMAL FINDING OF [...] N Ot I25.10 ATHSCL HEART DISEASE OF [place] CORONARY 08/31/2017 KAYLASANTIAGO N Ot I27.20 PULMONARY HYPERTENSION, UNSPECIFIED 08/31/2017 KAYLASANTIAGO N Ot Z79.899 OTHER FPC (CURRENT) DRUG THERAPY 08/31/2017 KAYLASANTIAGO N Ot [...] N Ot I25.10 ATHSCL HEART DISEASE OF [place] CORONARY 09/11/2017 KAYLASANTIAGO N Ot I27.20 PULMONARY HYPERTENSION, UNSPECIFIED 09/11/2017 KAYLAKELLEEAN N Ot Z79.899 OTHER STEEL CHECKER (CURRENT) DRUG THERAPY 09/11/2017 KAYLASANTIAGO N Ot Z82.49 FAMILY HX OF ISCHEM HEART DIS AND OTH DI 09/12/2017 KAYLA BOBAN N Ot 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 09/12/2017 KAYLA BOBMEENAKSHI N Ot E05.00 THYROTOXICOSIS W DIFFUSE GOITER W/O THYR 09/12/2017 KAYLA, BOBAN N Ot E80.6 OTHER DISORDERS OF BILIRUB[place] METABOLISM 09/12/2017 KAYLAKELLEEAN N Ot I25.10 ATHSCL HEART DISEASE OF [place] CORONARY 09/12/2017 KAYLA BOBAN N Ot I27.20 PULMONARY HYPERTENSION, UNSPECIFIED 09/12/2017 KAYLA, BOBAN N Ot Z79.899 OTHER FPC (CURRENT) DRUG THERAPY 09/12/2017 KAYLASANTIAGO N Ot Z82.49 FAMILY HX OF [place] HEART DIS AND OTH DI 09/12/2017 KAYLA, BOBAN N Ot 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 09/12/2017 KAYLA, BOBAN N Ot E05.00 THYROTOXICOSIS W DIFFUSE GOITER W/O THYR 09/12/2017 KAYLA, BOBMEENAKSHI N Ot E80.6 OTHER DISORDERS OF BILIRUBIN METABOLISM 09/12/2017 KAYLA BOBAN N Ot I25.10 ATHSCL HEART DISEASE OF [place] CORONARY 09/12/2017 KAYLA, KELLEEMEENAKSHI N Ot I27.20 PULMONARY HYPERTENSION, UNSPECIFIED 09/12/2017 KAYLA BOBAN N Ot Z79.899 OTHER STEEL CHECKER (CURRENT) DRUG THERAPY 09/12/2017 KAYLA BOBAN N Ot Z82.49 FAMILY HX OF [place] HEART DIS AND OTH DI 09/12/2017 KAYLA, BOBMEENAKSHI N Ot 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 NEOPLASM OF UPPER LOBE, RIGHT 09/12/2017 KAYLA BOBAN N Ot E05.00 THYROTOXICOSIS W DIFFUSE GOITER W/O THYR 09/12/2017 KAYLA KELLEEMEENAKSHI N Ot Z79.899 OTHER STEEL CHECKER (CURRENT) DRUG THERAPY 09/12/2017 KAYLA SANTIAGO N [...] 09/28/2017 KAYLA, BOBAN N Ot Z79.899 OTHER FPC (CURRENT) DRUG THERAPY 10/05/2017 MEHUL SMITH, MANUEL [...] MAL YENY BRONCH/LUNG NOS 10/05/2017 MARTIN MUHAMMAD BUSINESS RELATIONS MANAGER Ot 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 10/05/2017 MARTIN MUHAMMAD BUSINESS RELATIONS MANAGER Ot 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 10/05/2017 MARTIN MUHAMMAD BUSINESS RELATIONS MANAGER Ot 242.00 TOX DIF GOITER NO CRISIS 10/05/2017 MATRIN MUHAMMDA Ot V58.69 OTH MED,LT,CURRENT USE 10/05/2017 MARTIN MUHAMMAD Ot 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 10/05/2017 MARTIN MUHAMMADP Ot E05.00 THYROTOXICOSIS W DIFFUSE GOITER W/O THYR 10/05/2017 MARTIN MUHAMMADP Ot Z79.899 OTHER FPC (CURRENT) DRUG THERAPY 10/05/2017 RAFAEL BARTLETT, RADHA [...] TO DRUGS AND MEDS 10/05/2017 MARTIN MUHAMMAD BUSINESS RELATIONS MANAGER Ot T45.1X5A ADVERSE EFFECT OF ANTINEOPLASTIC AND IMM 10/05/2017 MARTIN MUHAMMADP Ot Z79.899 OTHER STEEL CHECKER (CURRENT) DRUG THERAPY 10/05/2017 RAFAEL BARTLETT, RADHA L Ot E05.00 THYROTOXICOSIS W DIFFUSE GOITER W/O THYR 10/05/2017 RAFAEL BARTLETT, RADHA L Ot I10 ESSENTIAL (PRIMARY) HYPERTENSION 10/05/2017 Ot 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 10/05/2017 RAFAEL BARTLETT, RADHA L Ot E05.00 THYROTOXICOSIS W DIFFUSE GOITER W/O THYR 10/05/2017 MARTIN MUHAMMAD BUSINESS RELATIONS MANAGER Ot 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 10/05/2017 RAFAEL BARTLETT, RADHA L Ot E05.00 THYROTOXICOSIS W DIFFUSE GOITER W/O THYR 10/05/2017 MARTIN MUHAMMADP Ot 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 10/05/2017 MARTIN MUHAMMADP Ot C79.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 10/05/2017 MARTIN MUHAMMDA Ot E05.00 THYROTOXICOSIS W DIFFUSE GOITER W/O THYR 10/05/2017 MARTIN MUHAMMAD Ot R21 RASH AND OTHER NONSPECIFIC SKIN ERUPTION 10/05/2017 MARTIN MUHAMMADP Ot Z79.899 OTHER STEEL CHECKER (CURRENT) DRUG THERAPY 10/05/2017 MARTIN MUHAMMADP Ot 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 10/05/2017 MARTIN MUHAMMAD Ot E05.00 THYROTOXICOSIS W DIFFUSE GOITER W/O THYR 10/05/2017 MARTIN MUHAMMAD Ot Z79.899 OTHER FPC (CURRENT) DRUG THERAPY 10/05/2017 DAVI SMITH, CHANEL [...] DIFFUSE GOITER W/O THYR 10/05/2017 MARTIN MUHAMMAD BUSINESS RELATIONS MANAGER Ot 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 10/05/2017 MARTIN MUHAMMAD BUSINESS RELATIONS MANAGER Ot I25.10 ATHSCL HEART DISEASE OF [place] CORONARY 10/05/2017 MARTIN MUHAMMAD BUSINESS RELATIONS MANAGER Ot 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 PULMONARY HYPERTENSION 10/05/2017 MARTIN MUHAMMADP Ot Z79.899 OTHER FPC (CURRENT) DRUG THERAPY 10/05/2017 MARTIN MUHAMMAD BUSINESS RELATIONS MANAGER Ot 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 10/05/2017 MARTIN MUHAMMAD Ot R52 PAIN, UNSPECIFIED 10/05/2017 SATNIAGO GARZA Ot 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 10/05/2017 SANTIAGO GARZA Ot Z51.11 ENCOUNTER FOR ANTINEOPLASTIC CHEMOTHERAP 10/05/2017 LATRICE EUBANKS Ot 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 10/05/2017 LATRICE EUBANKS Ot I25.10 ATHSCL HEART DISEASE OF [place] CORONARY 10/05/2017 LATRICE EUBANKS Ot R00.2 PALPITATIONS 10/05/2017 LATRICE EUBANKS Ot R06.02 SHORTNESS OF BREATH 10/05/2017 MARTIN MUHAMMAD Ot 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 10/05/2017 MARTIN MUHAMMADP Ot I26.99 OTHER PULMONARY EMBOLISM WITHOUT ACUTE C 10/05/2017 MARTIN MUHAMMAD BUSINESS RELATIONS MANAGER Ot K76.89 OTHER SPECIFIED DISEASES OF LIVER 10/05/2017 MARTIN MUHAMMAD BUSINESS RELATIONS MANAGER Ot R91.8 OTHER NONSPECIFIC ABNORMAL FINDING OF [...] SECONDARY MALIGNANT NEOPLASM OF RIGHT [place] 10/05/2017 AKYLA, SANTIAGO Amaral Ot 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 10/05/2017 KAYLA, SANTIAGO Amaral Ot E05.00 THYROTOXICOSIS W DIFFUSE GOITER W/O THYR 10/05/2017 KAYLASANTIAGO Ot E80.6 OTHER DISORDERS OF BILIRUBIN METABOLISM 10/05/2017 KAYLASANTIAGO Ot I25.10 ATHSCL HEART DISEASE OF [place] CORONARY 10/05/2017 SANTIAGO GARZA Ot I27.20 PULMONARY HYPERTENSION, UNSPECIFIED 10/05/2017 KAYLASANTIAGO Ot Z79.01 STEEL CHECKER (CURRENT) USE OF 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 10/05/2017 KAYLASANTIAGO Ot Z79.899 OTHER FPC (CURRENT) DRUG THERAPY 10/05/2017 SANTIAGO GARZA Ot [...] MAL YENY BRONCH/LUNG NOS 10/06/2017 MARTIN MUHAMMAD BUSINESS RELATIONS MANAGER Ot 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 10/06/2017 MARTIN MUHAMMAD BUSINESS RELATIONS MANAGER Ot 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 10/06/2017 MARTIN MUHAMMAD BUSINESS RELATIONS MANAGER Ot 242.00 TOX DIF GOITER NO CRISIS 10/06/2017 MARTIN MUHAMMAD BUSINESS RELATIONS MANAGER Ot V58.69 OTH MED,LT,CURRENT USE 10/06/2017 MARTIN MUHAMMAD BUSINESS RELATIONS MANAGER Ot 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 [facility] 10/06/2017 MARTIN MUHAMMAD BUSINESS RELATIONS MANAGER Ot E05.00 THYROTOXICOSIS W DIFFUSE GOITER W/O THYR 10/06/2017 MARTIN MUHAMMAD BUSINESS RELATIONS MANAGER Ot Z79.899 OTHER FPC (CURRENT) DRUG THERAPY 10/06/2017 JOIE HALL DOISON L Ot E05.00 THYROTOXICOSIS W DIFFUSE GOITER W/O THYR 10/06/2017 JOIE HALL DOISON L Ot E05.00 THYROTOXICOSIS W DIFFUSE GOITER W/O THYR 10/06/2017 JOIE HALL DOISON L Ot R25.2 CRAMP AND SPASM 10/06/2017 SANTIAGO GARZA Ot 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 10/06/2017 MARTIN MUHAMMAD BUSINESS RELATIONS MANAGER Ot 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 10/06/2017 MARTIN MUHAMMADP Ot E05.00 THYROTOXICOSIS W DIFFUSE GOITER W/O THYR 10/06/2017 MARTIN MUHAMMAD Ot L27.0 GEN SKIN ERUPTION DUE TO DRUGS AND MEDS 10/06/2017 MARTIN MUHAMMAD Ot T45.1X5A ADVERSE EFFECT OF ANTINEOPLASTIC AND IMM 10/06/2017 MARTIN MUHAMMADP Ot Z79.899 OTHER STEEL CHECKER (CURRENT) DRUG THERAPY 10/06/2017 RAFAEL DO, RADHA L Ot E05.00 THYROTOXICOSIS W DIFFUSE GOITER W/O THYR 10/06/2017 RAFAEL DO, RADHA L Ot I10 ESSENTIAL (PRIMARY) HYPERTENSION 10/06/2017 Ot 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 10/06/2017 RAFAEL BARTLETT, RADHA L Ot E05.00 THYROTOXICOSIS W DIFFUSE GOITER W/O THYR 10/06/2017 MARTIN MUHAMMAD BUSINESS RELATIONS MANAGER Ot C34.81 MALIGNANT NEOPLASM OF OVRLP SITES [...] ERUPTION 10/06/2017 MARTIN MUHAMMAD Ot Z79.899 OTHER FPC (CURRENT) DRUG THERAPY 10/06/2017 MARTIN MUHAMMADP Ot 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 10/06/2017 MARTIN MUHAMMAD BUSINESS RELATIONS MANAGER Ot E05.00 THYROTOXICOSIS W DIFFUSE GOITER W/O THYR 10/06/2017 MARTIN MUHAMMADP Ot Z79.899 OTHER STEEL CHECKER (CURRENT) DRUG THERAPY 10/06/2017 DAVI SMITH, BASHAR [...] MUHAMMAD Ot I25.10 ATHSCL HEART DISEASE OF [place] CORONARY 10/06/2017 MARTIN MUHAMMAD Ot 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 PULMONARY HYPERTENSION 10/06/2017 MARTIN MUHAMMAD Ot Z79.899 OTHER FPC (CURRENT) DRUG THERAPY 10/06/2017 MARTIN MUHAMMAD Ot [...] EUBANKS Ot I25.10 ATHSCL HEART DISEASE OF [place] CORONARY 10/06/2017 LATRICE EUBANKS Ot R00.2 PALPITATIONS 10/06/2017 LATRICE EUBANKS Ot R06.02 SHORTNESS OF BREATH 10/06/2017 MARTIN MUHAMMAD BUSINESS RELATIONS MANAGER Ot 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 10/06/2017 MARTIN MUHAMMAD BUSINESS RELATIONS MANAGER Ot I26.99 OTHER PULMONARY EMBOLISM WITHOUT ACUTE C 10/06/2017 MARTIN MUHAMMAD BUSINESS RELATIONS MANAGER Ot K76.89 OTHER SPECIFIED DISEASES OF [place] 10/06/2017 MARTIN MUHAMMAD BUSINESS RELATIONS MANAGER Ot R91.8 OTHER NONSPECIFIC ABNORMAL FINDING OF [...] GARZA Ot I25.10 ATHSCL HEART DISEASE OF [place] CORONARY 10/06/2017 SANTIAGO GARZA Ot I27.20 PULMONARY HYPERTENSION, UNSPECIFIED 10/06/2017 SANTIAGO GARZA Ot Z79.01 STEEL CHECKER (CURRENT) USE OF 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 10/06/2017 SANTIAGO GARZA Ot Z79.899 OTHER STEEL CHECKER (CURRENT) DRUG THERAPY 10/06/2017 SANTIAGO GARZA Ot [...] MD Ot 729.5 PAIN IN LIMB 10/06/2017 CHANLE TOMLINSON MD Ot 785.1 PALPITATIONS 10/06/2017 CHANEL [...] ACUTE VENOUS EMBOLISM THROMBOSIS UNSP 10/06/2017 KAYLIE HAPMTON DO Ot 786.05 SHORTNESS OF BREATH 10/06/2017 KAYLIE HAMPTON DO Ot 793.19 OTHER NONSPECIFIC ABNORMAL FINDING OF [place] 10/06/2017 KAYLIE HAMPTON DO Ot 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 10/06/2017 KAYLIE HAMPTON DO Ot 786.05 SHORTNESS OF BREATH 10/06/2017 KAYLIE HAMPTON DO Ot 786.6 CHEST SWELLING/MASS/LUMP 10/06/2017 KAYLA, SANTIAGO Amaral Ot 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 10/06/2017 MARTIN MUHAMMAD BUSINESS RELATIONS MANAGER Ot 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 10/06/2017 MARTIN MUHAMMAD BUSINESS RELATIONS MANAGER Ot 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 10/06/2017 MARTIN MUHAMMADP Ot 242.00 TOX DIF GOITER NO CRISIS 10/06/2017 MARTIN MUHAMMAD Ot V58.69 OTH MED,LT,CURRENT USE 10/06/2017 MARTIN MUHAMMAD BUSINESS RELATIONS MANAGER Ot 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 10/06/2017 MARTIN MUHAMMAD Ot E05.00 THYROTOXICOSIS W DIFFUSE GOITER W/O THYR 10/06/2017 MARTIN MUHAMMAD BUSINESS RELATIONS MANAGER Ot Z79.899 OTHER STEEL CHECKER (CURRENT) DRUG THERAPY 10/06/2017 RAFAEL BARTLETT, RADHA [...] DIFFUSE GOITER W/O THYR 10/06/2017 MARTIN MUHAMMAD BUSINESS RELATIONS MANAGER Ot L27.0 GEN SKIN ERUPTION DUE TO DRUGS AND MEDS 10/06/2017 MARTIN MUHAMMAD Ot T45.1X5A ADVERSE EFFECT OF ANTINEOPLASTIC AND IMM 10/06/2017 MARTIN MUHAMMAD Ot Z79.899 OTHER STEEL CHECKER (CURRENT) DRUG THERAPY 10/06/2017 RAFAEL BARTLETT, RADHA L Ot E05.00 THYROTOXICOSIS W DIFFUSE GOITER W/O THYR 10/06/2017 RAFAEL BARTLETT RADHA L Ot I10 ESSENTIAL (PRIMARY) HYPERTENSION 10/06/2017 Ot 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 10/06/2017 RAFAEL ABRTLETT, RADHA L Ot E05.00 THYROTOXICOSIS W DIFFUSE GOITER W/O THYR 10/06/2017 MARTIN MUHAMMAD BUSINESS RELATIONS MANAGER Ot 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00 THYROTOXICOSIS W DIFFUSE GOITER W/O THYR 10/06/2017 MARTIN MUHAMMAD Ot Z79.899 OTHER STEEL CHECKER (CURRENT) DRUG THERAPY 10/06/2017 DAVI SMITH, CHANEL [...] DIFFUSE GOITER W/O THYR 10/06/2017 MARTIN MUHAMMAD BUSINESS RELATIONS MANAGER Ot 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 [...] DIFFUSE GOITER W/O THYR 10/06/2017 MARTIN MUHAMMAD BUSINESS RELATIONS MANAGER Ot 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 10/06/2017 MARTIN MUHAMMAD BUSINESS RELATIONS MANAGER Ot I25.10 ATHSCL HEART DISEASE OF [place] CORONARY 10/06/2017 MARTIN MUHAMMADP Ot 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 PULMONARY HYPERTENSION 10/06/2017 MARTIN MUHAMMAD BUSINESS RELATIONS MANAGER Ot Z79.899 OTHER FPC (CURRENT) DRUG THERAPY 10/06/2017 MARTIN MUHAMMADP Ot [...] EUBANKS Ot I25.10 ATHSCL HEART DISEASE OF [place] CORONARY 10/06/2017 LATRICE EUBANKS Ot R00.2 PALPITATIONS 10/06/2017 LATRICE EUBANKS Ot R06.02 SHORTNESS OF BREATH 10/06/2017 MARTIN MUHAMMAD Ot 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 10/06/2017 MARTIN MUHAMMAD BUSINESS RELATIONS MANAGER Ot I26.99 OTHER PULMONARY EMBOLISM WITHOUT ACUTE [...] GARZA Ot I25.10 ATHSCL HEART DISEASE OF [place] CORONARY 10/06/2017 SANTIAGO GARZA Ot I27.20 PULMONARY HYPERTENSION, UNSPECIFIED 10/06/2017 SANTIAGO GARZA Ot Z79.01 STEEL CHECKER (CURRENT) USE OF 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 10/06/2017 SANTIAGO GARZA Ot Z79.899 OTHER FPC (CURRENT) DRUG THERAPY 10/06/2017 SANTIAGO GARZA Ot [...] ACUTE VENOUS EMBOLISM THROMBOSIS UNSP 10/06/2017 DAVI SMIHT, CHANEL Landin Ot 785.1 PALPITATIONS 10/06/2017 DAVI [...] MAL YENY BRONCH/LUNG NOS 10/06/2017 MARTIN MUHAMMAD BUSINESS RELATIONS MANAGER Ot 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 10/06/2017 MARTIN MUHAMMAD BUSINESS RELATIONS MANAGER Ot 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 10/06/2017 MARTIN MUHAMMAD BUSINESS RELATIONS MANAGER Ot 242.00 TOX DIF GOITER NO CRISIS 10/06/2017 MARTIN MUHAMMAD BUSINESS RELATIONS MANAGER Ot V58.69 OT MED,LT,CURRENT USE 10/06/2017 MARTIN MUHAMMAD BUSINESS RELATIONS MANAGER Ot 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 10/06/2017 MARTIN MUHAMMAD BUSINESS RELATIONS MANAGER Ot E05.00 THYROTOXICOSIS W DIFFUSE GOITER W/O THYR 10/06/2017 MARTIN MUHAMMAD BUSINESS RELATIONS MANAGER Ot Z79.899 OTHER STEEL CHECKER (CURRENT) DRUG THERAPY 10/06/2017 RADHA HALL DO Ot E05.00 THYROTOXICOSIS W DIFFUSE GOITER W/O THYR 10/06/2017 RADHA HALL DO Ot E05.00 THYROTOXICOSIS W DIFFUSE GOITER W/O THYR 10/06/2017 RADHA HALL DO Ot R25.2 CRAMP AND SPASM 10/06/2017 SANTIAGO GARZA Ot 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 10/06/2017 MARTIN MUHAMMAD BUSINESS RELATIONS MANAGER Ot 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 10/06/2017 MARTIN MUHAMMADP Ot E05.00 THYROTOXICOSIS W DIFFUSE GOITER W/O THYR 10/06/2017 MARTIN MUHAMMAD Ot L27.0 GEN SKIN ERUPTION DUE TO DRUGS AND MEDS 10/06/2017 MARTIN MUHAMMAD Ot T45.1X5A ADVERSE EFFECT OF ANTINEOPLASTIC AND IMM 10/06/2017 MARTIN MUHAMMAD BUSINESS RELATIONS MANAGER Ot Z79.899 OTHER STEEL CHECKER (CURRENT) DRUG THERAPY 10/06/2017 RAFAEL BARTLETT RADHA [...] DIFFUSE GOITER W/O THYR 10/06/2017 MARTIN MUHAMMAD BUSINESS RELATIONS MANAGER Ot 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 10/06/2017 MARTIN MUHAMMAD Ot C79.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 10/06/2017 MARTIN MUHAMMAD Ot E05.00 THYROTOXICOSIS W DIFFUSE GOITER W/O THYR 10/06/2017 MARTIN MUHAMMAD Ot R21 RASH AND OTHER NONSPECIFIC SKIN ERUPTION 10/06/2017 MARTIN MUHAMMADP Ot Z79.899 OTHER FPC (CURRENT) DRUG THERAPY 10/06/2017 MARTIN MUHAMMAD BUSINESS RELATIONS MANAGER Ot 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 10/06/2017 MARTIN MUHAMMADP Ot E05.00 THYROTOXICOSIS W DIFFUSE GOITER W/O THYR 10/06/2017 MARTIN MUHAMMADP Ot Z79.899 OTHER STEEL CHECKER (CURRENT) DRUG THERAPY 10/06/2017 DAVI SMITH, CHANEL J Ot E05.00 THYROTOXICOSIS W DIFFUSE GOITER W/O THYR 10/06/2017 HALL DO, RADHA L Ot E05.00 THYROTOXICOSIS W DIFFUSE GOITER W/O THYR 10/06/2017 HALL DO, ARDHA L Ot M54.2 CERVICALGIA 10/06/2017 HALL DO, [...] DIFFUSE GOITER W/O THYR 10/06/2017 MARTIN MUHAMMAD BUSINESS RELATIONS MANAGER Ot 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 10/06/2017 MARTIN MUHAMMAD Ot I25.10 ATHSCL HEART DISEASE OF [place] CORONARY 10/06/2017 MARTIN MUHAMMADP Ot 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 PULMONARY HYPERTENSION 10/06/2017 MARTIN MUHAMMAD Ot Z79.899 OTHER STEEL CHECKER (CURRENT) DRUG THERAPY 10/06/2017 MARTIN MUHAMMAD Ot [...] EUBANKS Ot I25.10 ATHSCL HEART DISEASE OF [place] CORONARY 10/06/2017 LATRICE EUBANKS Ot R00.2 PALPITATIONS 10/06/2017 LATRICE EUBANSK Ot R06.02 SHORTNESS OF BREATH 10/06/2017 MARTIN MUHAMMAD BUSINESS RELATIONS MANAGER Ot 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 10/06/2017 MARTIN MUHAMMAD BUSINESS RELATIONS MANAGER Ot I26.99 OTHER PULMONARY EMBOLISM WITHOUT ACUTE C 10/06/2017 MARTIN MUHAMMAD BUSINESS RELATIONS MANAGER Ot K76.89 OTHER SPECIFIED DISEASES OF LIVER 10/06/2017 MARTIN MUHAMMAD S BUSINESS RELATIONS MANAGER Ot R91.8 OTHER NONSPECIFIC ABNORMAL FINDING OF [...] GARZA Ot I25.10 ATHSCL HEART DISEASE OF [place] CORONARY 10/06/2017 SANTIAGO GARZA Ot I27.20 PULMONARY HYPERTENSION, UNSPECIFIED 10/06/2017 SANTIAGO GARZA Ot Z79.01 STEEL CHECKER (CURRENT) USE OF 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 10/06/2017 SANTIAGO GARZA Ot Z79.899 OTHER STEEL CHECKER (CURRENT) DRUG THERAPY 10/06/2017 SANTIAGO GARZA Cristin [...] MD Ot 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 [facility] 10/12/2017 CHANEL TOMLINSON MD Ot 785.1 PALPITATIONS 10/12/2017 CHANEL TOMLINSON MD Ot 786.05 SHORTNESS OF BREATH 10/12/2017 KAYLIE HAMPTON DO Ot 416.8 CHR PULMON HEART DIS NEC 10/12/2017 KAYLIE HAMPTON DO Ot 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 [facility] 10/12/2017 KAYLIE HAMPTON DO Ot 786.05 SHORTNESS OF BREATH 10/12/2017 KAYLIE HAMPTON DO Ot 793.19 OTHER NONSPECIFIC ABNORMAL FINDING OF [place] 10/12/2017 KAYLIE HAMPTON DO Ot 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 10/12/2017 MEMO BARTLETT KAYLIE M Ot 786.05 SHORTNESS OF BREATH 10/12/2017 KAYLIE HAMPTON DO Ot 786.6 CHEST SWELLING/MASS/LUMP 10/12/2017 SANTIAGO GARZA Ot 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 10/12/2017 MARTIN MUHAMMAD BUSINESS RELATIONS MANAGER Ot 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 10/12/2017 MARTIN MUHAMMAD BUSINESS RELATIONS MANAGER Ot 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 10/12/2017 MARTIN MUHAMMADP Ot 242.00 TOX DIF GOITER NO CRISIS 10/12/2017 MARTIN MUHAMMAD Ot V58.69 OTH MED,LT,CURRENT USE 10/12/2017 MARTIN MUHAMMAD BUSINESS RELATIONS MANAGER Ot 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 10/12/2017 MARTIN MUHAMMADP Ot E05.00 THYROTOXICOSIS W DIFFUSE GOITER W/O THYR 10/12/2017 MARTIN MUHAMMADP Ot Z79.899 OTHER FPC (CURRENT) DRUG THERAPY 10/12/2017 JOIE HALL DOISON L Ot E05.00 THYROTOXICOSIS W DIFFUSE GOITER W/O THYR 10/12/2017 JOIE HALL DOISON L Ot E05.00 THYROTOXICOSIS W DIFFUSE GOITER W/O THYR 10/12/2017 RADHA HALL DO L Ot R25.2 CRAMP AND SPASM 10/12/2017 SANTIAGO GARZA Ot 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 10/12/2017 MARTIN MUHAMMAD BUSINESS RELATIONS MANAGER Ot 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 10/12/2017 MARTIN MUHAMMAD BUSINESS RELATIONS MANAGER Ot E05.00 THYROTOXICOSIS W DIFFUSE GOITER W/O THYR 10/12/2017 MARTIN MUHAMMADP Ot L27.0 GEN SKIN ERUPTION DUE TO DRUGS AND MEDS 10/12/2017 MARTIN MUHAMMADP Ot T45.1X5A ADVERSE EFFECT OF ANTINEOPLASTIC AND IMM 10/12/2017 MARTIN MUHAMMAD BUSINESS RELATIONS MANAGER Ot Z79.899 OTHER FPC (CURRENT) DRUG THERAPY 10/12/2017 RAFAEL BARTLETT, RADHA [...] ERUPTION 10/12/2017 MARTIN MUHAMMADP Ot Z79.899 OTHER FPC (CURRENT) DRUG THERAPY 10/12/2017 MARTIN MUHAMMAD Ot 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 10/12/2017 MARTIN MUHAMMAD Ot E05.00 THYROTOXICOSIS W DIFFUSE GOITER W/O THYR 10/12/2017 MARTIN MUHAMMADP Ot Z79.899 OTHER STEEL CHECKER (CURRENT) DRUG THERAPY 10/12/2017 DAVI SMITH, CHANEL [...] DIFFUSE GOITER W/O THYR 10/12/2017 MARTIN MUHAMMAD BUSINESS RELATIONS MANAGER Ot 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 [...] DIFFUSE GOITER W/O THYR 10/12/2017 MARTIN MUHAMMAD BUSINESS RELATIONS MANAGER Ot 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 10/12/2017 MARTIN MUHAMMADP Ot I25.10 ATHSCL HEART DISEASE OF [place] CORONARY 10/12/2017 MARTIN MUHAMMADP Ot 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 PULMONARY HYPERTENSION 10/12/2017 MARTIN MUHAMMAD BUSINESS RELATIONS MANAGER Ot Z79.899 OTHER STEEL CHECKER (CURRENT) DRUG THERAPY 10/12/2017 MARTIN MUHAMMAD BUSINESS RELATIONS MANAGER Ot 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 10/12/2017 MARTIN MUHAMMAD Ot R52 PAIN, UNSPECIFIED 10/12/2017 SANTIAGO GARZA Ot 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 10/12/2017 SANTIAGO GARZA Ot Z51.11 ENCOUNTER FOR ANTINEOPLASTIC CHEMOTHERAP 10/12/2017 LATRICE EUBANKS Ot 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 10/12/2017 LATRICE EUBANKS Ot I25.10 ATHSCL HEART DISEASE OF [place] CORONARY 10/12/2017 LATRICE EUBANKS Ot R00.2 PALPITATIONS 10/12/2017 LATRICE EUBANKS Ot R06.02 SHORTNESS OF BREATH 10/12/2017 MARTIN MUHAMMADP Ot 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 10/12/2017 MARTIN MUHAMMADP Ot I26.99 OTHER PULMONARY EMBOLISM WITHOUT ACUTE C 10/12/2017 MARTIN MUHAMMAD BUSINESS RELATIONS MANAGER Ot K76.89 OTHER SPECIFIED DISEASES OF LIVER 10/12/2017 MARTIN MUHAMMAD BUSINESS RELATIONS MANAGER Ot R91.8 OTHER NONSPECIFIC ABNORMAL FINDING OF [...] GARZA Ot I25.10 ATHSCL HEART DISEASE OF [place] CORONARY 10/12/2017 SANTIAGO GARZA Ot I27.20 PULMONARY HYPERTENSION, UNSPECIFIED 10/12/2017 SANTIAGO GARZA Ot Z79.01 FPC (CURRENT) USE OF 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 10/12/2017 SANTIGAO GARZA Ot Z79.899 OTHER FPC (CURRENT) DRUG THERAPY 10/12/2017 SANTIAGO GARZA Ot Z82.49 FAMILY HX OF ISCHEM HEART DIS AND OTH DI 10/12/2017 SANTIAGO GARZA Ot 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 10/12/2017 SANTIAGO GARZA Ot 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 10/12/2017 SANTIAGO GARZA Ot C78.00 SECONDARY MALIGNANT [...] MAL YENY BRONCH/LUNG NOS 11/19/2017 MARTIN MUHAMMAD BUSINESS RELATIONS MANAGER Ot 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 11/19/2017 MARTIN MUHAMMAD BUSINESS RELATIONS MANAGER Ot 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 11/19/2017 MARTIN MUHAMMAD BUSINESS RELATIONS MANAGER Ot 242.00 TOX DIF GOITER NO CRISIS 11/19/2017 MARTIN MUHAMMAD Ot V58.69 OTH MED,LT,CURRENT USE 11/19/2017 MARTIN MUHAMMAD Ot 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 11/19/2017 MARTIN MUHAMMADP Ot E05.00 THYROTOXICOSIS W DIFFUSE GOITER W/O THYR 11/19/2017 MARTIN MUHAMMADP Ot Z79.899 OTHER STEEL CHECKER (CURRENT) DRUG THERAPY 11/19/2017 RAFAEL BARTLETT, RADHA [...] ANSLEY MUHAMMADHEATHER Howard PINEDA Ot Z79.899 OTHER STEEL CHECKER (CURRENT) DRUG THERAPY 11/19/2017 RAFAEL BARTLETT RADHA L Ot E05.00 THYROTOXICOSIS W DIFFUSE GOITER W/O THYR 11/19/2017 HALL DO, RADHA L Ot I10 ESSENTIAL (PRIMARY) HYPERTENSION 11/19/2017 Ot 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 11/19/2017 HALL , RADHA L Ot E05.00 THYROTOXICOSIS W DIFFUSE GOITER W/O THYR 11/19/2017 MARTIN MUHAMMAD BUSINESS RELATIONS MANAGER Ot 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 [...] ERUPTION 11/19/2017 MARTIN MUHAMMADP Ot Z79.899 OTHER STEEL CHECKER (CURRENT) DRUG THERAPY 11/19/2017 MARTIN MUHAMMADP Ot 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 11/19/2017 MARTIN MUHAMMAD Ot E05.00 THYROTOXICOSIS W DIFFUSE GOITER W/O THYR 11/19/2017 MARTIN MUHAMMAD Ot Z79.899 OTHER FPC (CURRENT) DRUG THERAPY 11/19/2017 DAVI SMITH, CHANEL [...] DIFFUSE GOITER W/O THYR 11/19/2017 MARTIN MUHAMMAD BUSINESS RELATIONS MANAGER Ot 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 11/19/2017 MARTIN MUHAMMAD BUSINESS RELATIONS MANAGER Ot I25.10 ATHSCL HEART DISEASE OF [place] CORONARY 11/19/2017 MARTIN MUHAMMAD BUSINESS RELATIONS MANAGER Ot 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 PULMONARY HYPERTENSION 11/19/2017 MARTIN MUHAMMAD Ot Z79.899 OTHER FPC (CURRENT) DRUG THERAPY 11/19/2017 MARTIN MUHAMMAD BUSINESS RELATIONS MANAGER Ot 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 11/19/2017 MARTIN MUHAMMAD Ot R52 PAIN, UNSPECIFIED 11/19/2017 SANTIAGO GARZA Ot 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 11/19/2017 SANTIAGO GARZA Ot Z51.11 ENCOUNTER FOR ANTINEOPLASTIC CHEMOTHERAP 11/19/2017 LATRICE EUBANKS Ot 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 11/19/2017 LATRICE EUBANKS Ot I25.10 ATHSCL HEART DISEASE OF [place] CORONARY 11/19/2017 LATRICE EUBANKS Ot R00.2 PALPITATIONS 11/19/2017 LATRICE EUBANKS Ot R06.02 SHORTNESS OF BREATH 11/19/2017 MARTIN MUHAMMAD Ot 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 11/19/2017 MARTIN MUHAMMADP Ot I26.99 OTHER PULMONARY EMBOLISM WITHOUT ACUTE C 11/19/2017 MARTIN MUHAMMAD BUSINESS RELATIONS MANAGER Ot K76.89 OTHER SPECIFIED DISEASES OF LIVER 11/19/2017 MARTIN MUHAMMAD S BUSINESS RELATIONS MANAGER Ot R91.8 OTHER NONSPECIFIC ABNORMAL FINDING OF [place] 11/19/2017 RADHA HALL DO Ot E03.2 HYPOTHYROIDISM DUE TO MEDS AND OTH EXOGE 11/19/2017 SANTIAGO GARZA Ot 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 11/19/2017 MEHUL SMITH, MANUEL Amaral Ot R31.9 HEMATURIA, UNSPECIFIED 11/19/2017 SANTIAGO GARZA Ot 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 [facility] 11/19/2017 SANTIAGO GARZA Cristin Ot C34.11 [...] Cristin Ot I25.10 ATHSCL HEART DISEASE OF [place] CORONARY 11/19/2017 KAYLA SANTIAGO Amaral Ot I27.20 PULMONARY HYPERTENSION, UNSPECIFIED 11/19/2017 SANTIAGO GARZA Cristin Ot Z79.01 FPC (CURRENT) USE OF 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 11/19/2017 KAYLA KELLEEMEENAKSHI Cristin Ot Z79.899 OTHER STEEL CHECKER (CURRENT) DRUG THERAPY 11/19/2017 KAYLA KELLEEMEENAKSHI Cristin Ot Z82.49 FAMILY HX OF ISCHEM HEART DIS AND OTH DI 11/19/2017 SANTIAGO GARZA Cristin Ot 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 11/19/2017 SANTIAGO GARZA Cristin Ot 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 [facility] 11/19/2017 SANTIAGO GARZA Cristin Ot 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 11/19/2017 SANTIAGO GARZA Cristin Ot M19.011 PRIMARY OSTEOARTHRITIS, RIGHT SHOULDER 11/19/2017 SANTIAGO GARZA Cristin Ot M89.9 DISORDER OF BONE, UNSPECIFIED 11/21/2017 MARTIN MUHAMMAD BUSINESS RELATIONS MANAGER Ot 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 [facility] 11/21/2017 MARTIN MUHAMMADP Ot C79.51 SECONDARY MALIGNANT NEOPLASM OF BONE 11/21/2017 MARTIN MUHAMMADP Ot G93.89 OTHER SPECIFIED DISORDERS OF BRAIN 11/21/2017 MARTIN MUHAMMADP Ot 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 11/22/2017 MARTIN MUHAMMADP Ot 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 [facility] 11/22/2017 MARTIN MUHAMMADP Ot C79.51 SECONDARY MALIGNANT NEOPLASM OF BONE 11/22/2017 MARTIN MUHAMMAD BUSINESS RELATIONS MANAGER Ot G93.89 OTHER SPECIFIED DISORDERS OF BRAIN 11/22/2017 MARTIN MUHAMMAD BUSINESS RELATIONS MANAGER Ot 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 11/25/2017 MARTIN MUHAMMAD BUSINESS RELATIONS MANAGER Ot 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 [facility] 11/25/2017 MARTIN MUHAMMAD BUSINESS RELATIONS MANAGER Ot C79.51 SECONDARY MALIGNANT NEOPLASM OF BONE 11/25/2017 MARTIN MUHAMMAD BUSINESS RELATIONS MANAGER Ot G93.89 OTHER SPECIFIED DISORDERS OF BRAIN 11/25/2017 MARTIN MUHAMMAD BUSINESS RELATIONS MANAGER Ot 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 12/20/2017 MEHUL [...] MD Ot 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 [facility] 12/20/2017 CHANEL TOMLINSON MD Ot 785.1 PALPITATIONS 12/20/2017 CHANEL TOMLINSON MD Ot 786.05 SHORTNESS OF BREATH 12/20/2017 KAYLIE HAMPTON DO Ot 416.8 CHR PULMON HEART DIS NEC 12/20/2017 KAYLIE HAMPTON DO Ot 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 [facility] 12/20/2017 KAYLIE HAMPTON DO Ot 786.05 SHORTNESS OF BREATH 12/20/2017 KAYLIE HAMPTON DO Ot 793.19 OTHER NONSPECIFIC ABNORMAL FINDING OF [place] 12/20/2017 KAYLIE HAMPTON DO Ot 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 12/20/2017 KAYLIE HAMPTON DO Ot 786.05 SHORTNESS OF BREATH 12/20/2017 KAYLIE HAMPTON DO Ot 786.6 CHEST SWELLING/MASS/LUMP 12/20/2017 SANTIAGO GARZA Ot 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 12/20/2017 MARTIN MUHAMMAD BUSINESS RELATIONS MANAGER Ot 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 12/20/2017 MARTIN MUHAMMAD BUSINESS RELATIONS MANAGER Ot 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 12/20/2017 MARTIN MUHAMMAD BUSINESS RELATIONS MANAGER Ot 242.00 TOX DIF GOITER NO CRISIS 12/20/2017 MARTIN MUHAMMADP Ot V58.69 OTH MED,LT,CURRENT USE 12/20/2017 MARTIN MUHAMMAD BUSINESS RELATIONS MANAGER Ot 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 12/20/2017 MARTIN MUHAMMADP Ot E05.00 THYROTOXICOSIS W DIFFUSE GOITER W/O THYR 12/20/2017 MARTIN MUHAMMADP Ot Z79.899 OTHER FPC (CURRENT) DRUG THERAPY 12/20/2017 RADHA HALL DO [...] TO DRUGS AND MEDS 12/20/2017 MARTIN MUHAMMAD BUSINESS RELATIONS MANAGER Ot T45.1X5A ADVERSE EFFECT OF ANTINEOPLASTIC AND IMM 12/20/2017 MARTIN MUHAMMAD BUSINESS RELATIONS MANAGER Ot Z79.899 OTHER FPC (CURRENT) DRUG THERAPY 12/20/2017 HALL DO, RADHA [...] ERUPTION 12/20/2017 MARTIN MUHAMMADP Ot Z79.899 OTHER STEEL CHECKER (CURRENT) DRUG THERAPY 12/20/2017 MARTIN MUHAMMAD Ot 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 12/20/2017 MARTIN MUHAMMADP Ot E05.00 THYROTOXICOSIS W DIFFUSE GOITER W/O THYR 12/20/2017 MARTIN MUHAMMAD Ot Z79.899 OTHER FPC (CURRENT) DRUG THERAPY 12/20/2017 DAVI SMITH, CHANEL [...] MUHAMMADP Ot I25.10 ATHSCL HEART DISEASE OF [place] CORONARY 12/20/2017 MARTIN MUHAMMADP Ot 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 PULMONARY HYPERTENSION 12/20/2017 MARTIN MUHAMMADP Ot Z79.899 OTHER STEEL CHECKER (CURRENT) DRUG THERAPY 12/20/2017 MARTIN MUHAMMAD BUSINESS RELATIONS MANAGER Ot 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 12/20/2017 MARTIN MUHAMMAD Ot R52 PAIN, UNSPECIFIED 12/20/2017 SANTIAGO GARZA Ot 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 12/20/2017 SANTIAGO GARZA Ot Z51.11 ENCOUNTER FOR ANTINEOPLASTIC CHEMOTHERAP 12/20/2017 LATRICE EUBANKS Ot 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 12/20/2017 LATRICE EUBANKS Ot I25.10 ATHSCL HEART DISEASE OF [place] CORONARY 12/20/2017 LATRICE EUBANKS Ot R00.2 PALPITATIONS 12/20/2017 LATRICE EUBANKS Ot R06.02 SHORTNESS OF BREATH 12/20/2017 MARTIN MUHAMMADP Ot 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 12/20/2017 MARTIN MUHAMMAD BUSINESS RELATIONS MANAGER Ot I26.99 OTHER PULMONARY EMBOLISM WITHOUT ACUTE C 12/20/2017 MARTIN MUHAMMAD BUSINESS RELATIONS MANAGER Ot K76.89 OTHER SPECIFIED DISEASES OF LIVER 12/20/2017 MARTIN MUHAMMAD BUSINESS RELATIONS MANAGER Ot R91.8 OTHER NONSPECIFIC ABNORMAL FINDING OF [place] 12/20/2017 RADHA HALL DO Ot E03.2 HYPOTHYROIDISM DUE TO MEDS AND OTH EXOGE 12/20/2017 KAYLASANTIAGO Ot 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 [facility] 12/20/2017 MEHUL SMITH, MANUEL Amaral Ot R31.9 HEMATURIA, UNSPECIFIED 12/20/2017 KAYLASANTIAGO Ot 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 12/20/2017 KAYLASANTIAGO Ot 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 NEOPLASM OF UPPER LOBE, RIGHT 12/20/2017 SANTIAGO GARZA Ot 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 12/20/2017 SANTIAGO GARZA Ot 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 12/20/2017 SANTIAGO GARZA Ot E05.00 THYROTOXICOSIS W DIFFUSE GOITER W/O THYR 12/20/2017 SANTIAGO GARZA Ot E80.6 OTHER DISORDERS OF BILIRUBIN METABOLISM 12/20/2017 SANTIAGO GARZA Ot I25.10 ATHSCL HEART DISEASE OF [place] CORONARY 12/20/2017 SANTIAGO GARZA Ot I27.20 PULMONARY HYPERTENSION, UNSPECIFIED 12/20/2017 SANTIAGO GARZA Ot Z79.01 FPC (CURRENT) USE OF 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 12/20/2017 SANTIAGO GARZA Ot Z79.899 OTHER STEEL CHECKER (CURRENT) DRUG THERAPY 12/20/2017 SANTIAGO GARZA Ot Z82.49 FAMILY HX OF [place] HEART DIS AND OTH DI 12/20/2017 SANTIAGO GARZA Ot 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 12/20/2017 SANTIAGO GARZA Ot 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 12/20/2017 SANTIAGO GARZA Ot 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 12/20/2017 SANTIAGO GARZA Ot M19.011 PRIMARY OSTEOARTHRITIS, RIGHT SHOULDER 12/20/2017 SANTIAGO GARZA Ot M89.9 DISORDER OF BONE, UNSPECIFIED 12/20/2017 MARTIN MUHAMMAD BUSINESS RELATIONS MANAGER Ot 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 12/20/2017 ANSLEY MUHAMMADHEATHER Howard BUSINESS RELATIONS MANAGER Ot C79.51 SECONDARY MALIGNANT NEOPLASM OF BONE 12/20/2017 ANSLEY MUHAMMADHEATHER Lawrence BUSINESS RELATIONS MANAGER Ot G93.89 OTHER SPECIFIED DISORDERS OF BRAIN 12/20/2017 ANSLEY MUHAMMADHEATHER Howard BUSINESS RELATIONS MANAGER Ot 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 12/20/2017 SANTIAGO GARZA Ot 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 12/20/2017 SANTIAGO GARZA Ot C78.00 SECONDARY MALIGNANT [...] GARZA Ot I25.10 ATHSCL HEART DISEASE OF [place] CORONARY 12/20/2017 SANTIAGO GARZA Ot I27.20 PULMONARY HYPERTENSION, UNSPECIFIED 12/20/2017 SANTIAGO GARZA Ot Z79.01 FPC (CURRENT) USE OF 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 12/20/2017 SANTIAGO GARZA Ot Z79.899 OTHER STEEL CHECKER (CURRENT) DRUG THERAPY 12/20/2017 SANTIAGO GARZA Ot Z82.49 FAMILY HX OF [place] HEART DIS AND OTH DI 12/20/2017 SANTIAGO GARZA Ot 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 12/20/2017 SANTIAGO GARZA Ot 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 [facility] 12/20/2017 MEHUL SMITH, MANUEL Amaral Ot R31.9 HEMATURIA, UNSPECIFIED 12/20/2017 SANTIAGO GARZA Ot 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 [facility] 12/20/2017 RADHA HALL DO Ot E03.2 [...] MD Ot 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 [facility] 12/20/2017 CHANEL TOMLINSON MD Ot 785.1 PALPITATIONS 12/20/2017 CHANEL TOMLINSON MD Ot 786.05 SHORTNESS OF BREATH 12/20/2017 KAYLIE HAMPTON DO Ot 416.8 CHR PULMON HEART DIS NEC 12/20/2017 KAYLIE HAMPTON DO Ot 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 [facility] 12/20/2017 KAYLIE HAMPTON DO Ot 786.05 SHORTNESS OF BREATH 12/20/2017 KAYLIE HAMPTON DO Ot 793.19 OTHER NONSPECIFIC ABNORMAL FINDING OF [place] 12/20/2017 KAYLIE HAMPTON DO Ot 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 12/20/2017 KAYLIE HAMPTON DO Ot 786.05 SHORTNESS OF BREATH 12/20/2017 KAYLIE HAMPTON DO Ot 786.6 CHEST SWELLING/MASS/LUMP 12/20/2017 SANTIAGO GARZA Ot 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 12/20/2017 MARTIN MUHAMMAD BUSINESS RELATIONS MANAGER Ot 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 12/20/2017 MARTIN MUHAMMAD BUSINESS RELATIONS MANAGER Ot 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 12/20/2017 MRATIN MUHAMMAD BUSINESS RELATIONS MANAGER Ot 242.00 TOX DIF GOITER NO CRISIS 12/20/2017 MARTIN MUHAMMAD Ot V58.69 OTH MED,LT,CURRENT USE 12/20/2017 MARTIN MUHAMMAD BUSINESS RELATIONS MANAGER Ot 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 12/20/2017 MARTIN MUHAMMADP Ot E05.00 THYROTOXICOSIS W DIFFUSE GOITER W/O THYR 12/20/2017 MARTIN MUHAMMAD BUSINESS RELATIONS MANAGER Ot Z79.899 OTHER STEEL CHECKER (CURRENT) DRUG THERAPY 12/20/2017 RAFAEL BARTLETT, RADHA [...] IMM 12/20/2017 MARTIN MUHAMMADP Ot Z79.899 OTHER STEEL CHECKER (CURRENT) DRUG THERAPY 12/20/2017 RAFAEL BARTLETT RADHA L Ot E05.00 THYROTOXICOSIS W DIFFUSE GOITER W/O THYR 12/20/2017 JOIE HALL DOISON L Ot I10 ESSENTIAL (PRIMARY) HYPERTENSION 12/20/2017 Ot 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 12/20/2017 RAFAEL BARTLETT, RADHA L Ot E05.00 THYROTOXICOSIS W DIFFUSE GOITER W/O THYR 12/20/2017 MARTIN MUHAMMAD BUSINESS RELATIONS MANAGER Ot C34.81 MALIGNANT NEOPLASM OF OVRLP SITES [...] ERUPTION 12/20/2017 MARTIN MUHAMMAD Ot Z79.899 OTHER FPC (CURRENT) DRUG THERAPY 12/20/2017 MARTIN MUHAMMAD Ot 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 12/20/2017 MARTIN MUHAMMAD Ot E05.00 THYROTOXICOSIS W DIFFUSE GOITER W/O THYR 12/20/2017 MARTIN MUHAMMADP Ot Z79.899 OTHER STEEL CHECKER (CURRENT) DRUG THERAPY 12/20/2017 DAVI SMITH, CHANEL [...] DIFFUSE GOITER W/O THYR 12/20/2017 MARTIN MUHAMMAD BUSINESS RELATIONS MANAGER Ot 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 12/20/2017 MARTIN MUHAMMAD BUSINESS RELATIONS MANAGER Ot I25.10 ATHSCL HEART DISEASE OF [place] CORONARY 12/20/2017 MARTIN MUHAMMAD BUSINESS RELATIONS MANAGER Ot 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 PULMONARY HYPERTENSION 12/20/2017 MARTIN MUHAMMADP Ot Z79.899 OTHER STEEL CHECKER (CURRENT) DRUG THERAPY 12/20/2017 MARTIN MUHAMMADP Ot [...] EUBANKS Ot I25.10 ATHSCL HEART DISEASE OF [place] CORONARY 12/20/2017 LATRICE EUBANKS Ot R00.2 PALPITATIONS [...] 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 12/20/2017 SANTIAGO GARZA Cristin Ot 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 [...] GARZA Ot I25.10 ATHSCL HEART DISEASE OF [place] CORONARY 12/20/2017 KAYLASANTIAGO Ot I27.20 PULMONARY HYPERTENSION, UNSPECIFIED 12/20/2017 KAYLAKELLEEMEENAKSHI Cristin Ot Z79.01 FPC (CURRENT) USE OF 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 12/20/2017 KAYLASANTIAGO Ot Z79.899 OTHER FPC (CURRENT) DRUG THERAPY 12/20/2017 KAYLA SANTIAGO Amaral Ot Z82.49 FAMILY HX OF I[place]HE[place] HEART DIS AND OTH DI 12/20/2017 KAYLAKELLEEMEENAKSHI Cristin Ot 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 12/20/2017 KAYLASANTIAGO Ot 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 [facility] 12/20/2017 KAYLA KELLEEMEENAKSHI Cristin Ot 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 12/20/2017 KAYLA, SANTIAGO Amaral Ot M19.011 PRIMARY OSTEOARTHRITIS, RIGHT SHOULDER 12/20/2017 KAYLASANTIAGO Ot M89.9 DISORDER OF BONE, UNSPECIFIED 12/20/2017 MARTIN MUHAMMAD BUSINESS RELATIONS MANAGER Ot 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 [facility] 12/20/2017 MARTIN MUHAMMAD BUSINESS RELATIONS MANAGER Ot C79.51 SECONDARY MALIGNANT NEOPLASM OF BONE 12/20/2017 MARTIN MUHAMMAD BUSINESS RELATIONS MANAGER Ot G93.89 OTHER SPECIFIED DISORDERS OF BRAIN 12/20/2017 MARTIN MUHAMMAD BUSINESS RELATIONS MANAGER Ot 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 12/27/2017 SANTIAGO GARZA Ot 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 NEOPLASM OF UPPER LOBE, RIGHT 12/27/2017 SANTIAGO GARZA Cristin Ot E05.00 THYROTOXICOSIS W DIFFUSE GOITER W/O THYR 12/27/2017 SANTIAGO GARZA Cristin Ot Z79.899 OTHER FPC (CURRENT) DRUG THERAPY 12/28/2017 SANTIAGO GARZA Cristin Ot 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 NEOPLASM OF UPPER LOBE, RIGHT 12/28/2017 KAYLA KELLEEMEENAKSHI Cristin Ot 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 12/28/2017 KAYLA KELLEEMEENAKSHI Cristin Ot 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 12/28/2017 SNATIAGO GARZA Cristin Ot E05.00 THYROTOXICOSIS W DIFFUSE GOITER W/O THYR 12/28/2017 KAYLA KELLEEMEENAKSHI Cristin Ot E80.6 OTHER DISORDERS OF BILIRUBIN METABOLISM 12/28/2017 KAYLA, SANTIAGO N Ot I25.10 ATHSCL HEART DISEASE OF [place] CORONARY 12/28/2017 KAYLASANTIAGO Ot I27.20 PULMONARY HYPERTENSION, UNSPECIFIED 12/28/2017 KAYLA KELLEEMEENAKSHI Cristin Ot R82.99 OTHER ABNORMAL FINDINGS IN URINE 12/28/2017 SANTIAGO GARZA Cristin Ot Z51.0 ENCOUNTER FOR ANTINEOPLASTIC RADIATION T 12/28/2017 SANTIAGO GARZA Cristin Ot Z79.01 FPC (CURRENT) USE OF 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 12/28/2017 KAYLA KELLEEMEENAKSHI Cristin Ot Z79.899 OTHER FPC (CURRENT) DRUG THERAPY 12/28/2017 SANTIAGO GARZA Cristin [...] KAYLASANTIAGO Ot I25.10 ATHSCL HEART DISEASE OF [place] CORONARY 12/29/2017 SANTIAGO GARZA Ot I27.20 PULMONARY HYPERTENSION, UNSPECIFIED 12/29/2017 SANTIAGO GARZA Cristin Ot R82.99 OTHER ABNORMAL FINDINGS IN URINE 12/29/2017 SANTIAGO GARZA Cristin Ot Z51.0 ENCOUNTER FOR ANTINEOPLASTIC RADIATION T 12/29/2017 SANTIAGO GARZA Cristin Ot Z79.01 STEEL CHECKER (CURRENT) USE OF 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 12/29/2017 SANTIAGO GARZA Cristin Ot Z79.899 OTHER STEEL CHECKER (CURRENT) DRUG THERAPY 12/29/2017 SANTIAGO GARZA Cristin Ot Z82.49 FAMILY HX OF ISCHEM HEART DIS AND OTH DI 12/29/2017 SANTIAGO GARZA Cristin Ot 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 12/30/2017 RADHA HALL DO Ot E03.2 HYPOTHYROIDISM DUE TO MEDS AND OTH EXOGE 12/30/2017 SANTIAGO GARZA Cristin Ot 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 [facility] 12/30/2017 KAYLA KELLEEMEENAKSHI Cristin Ot 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 [facility] 12/30/2017 SANTIAGO GARZA Cristin Ot 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 [facility] 12/30/2017 SANTIAGO GARZA Cristin Ot 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.] N Ot I25.10 ATHSCL HEART DISEASE OF [place] CORONARY 01/12/2018 SANTIAGO GARZA N Ot I27.20 PULMONARY HYPERTENSION, UNSPECIFIED 01/12/2018 SANTIAGO GARZA N Ot Z79.01 FPC (CURRENT) USE OF 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 01/12/2018 KAYLA SANTIAGO N Ot Z79.899 OTHER FPC (CURRENT) DRUG THERAPY 01/12/2018 KAYLA KELLEEMEENAKSHI N [...] N Ot I25.10 ATHSCL HEART DISEASE OF [place] CORONARY 01/12/2018 KAYLA KELLEEMEENAKSHI N Ot I27.20 PULMONARY HYPERTENSION, UNSPECIFIED 01/12/2018 KAYLA KELLEEMEENAKSHI N Ot Z79.01 FPC (CURRENT) USE OF 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 01/12/2018 KAYLA SANTIAGO N Ot Z79.899 OTHER FPC (CURRENT) DRUG THERAPY 01/12/2018 KAYLA KELLEEMEENAKSHI N Ot Z82.49 FAMILY HX OF ISCHEM HEART DIS AND OTH DI 01/12/2018 KAYLA SANTIAGO N Ot 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 01/14/2018 KAYLA KELLEEMEENAKSHI N Ot 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 NEOPLASM OF UPPER LOBE, RIGHT 01/14/2018 KAYLA, SANTIAGO N Ot E05.00 THYROTOXICOSIS W DIFFUSE GOITER W/O THYR 01/14/2018 SANTIAGO GARZA Ot Z79.899 OTHER FPC (CURRENT) DRUG THERAPY 02/07/2018 Ot A41.9 SEPSIS, UNSPECIFIED ORGANISM 02/07/2018 Ot B96.4 PROTEUS ( MIRABILIS) (MORGANII) CAUSING D 02/07/2018 Ot 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 02/07/2018 Ot C78.7 SECONDARY MALIG NEOPLASM OF LIVER AND IN 02/07/2018 Ot C79.31 SECONDARY MALIGNANT NEOPLASM OF BRAIN 02/07/2018 Ot C79.51 SECONDARY MALIGNANT NEOPLASM OF BONE 02/07/2018 Ot E03.9 HYPOTHYROIDISM, UNSPECIFIED 02/07/2018 Ot E05.00 THYROTOXICOSIS W DIFFUSE GOITER W/O THYR 02/07/2018 Ot E87.1 HYPO- OSMOLALITY AND HYPONATREMIA 02/07/2018 Ot E87.6 HYPOKALEMIA 02/07/2018 Ot J18.9 PNEUMONIA, UNSPECIFIED ORGANISM 02/07/2018 Ot K21.9 GASTRO- ESOPHAGEAL REFLUX DISEASE WITHOUT 02/07/2018 Ot N30.00 ACUTE CYSTITIS WITHOUT HEMATURIA 02/07/2018 Ot R40.4 TRANSIENT ALTERATION OF AWARENESS 02/07/2018 Ot Z66 DO NOT RESUSCITATE 02/07/2018 Ot Z92.21 PERSONAL HISTORY OF ANTINEOPLASTIC CHEMO 02/10/2018 Ot I27.20 PULMONARY HYPERTENSION, UNSPECIFIED 02/24/2018 KING KASI D DIE ASSEMBLER Ot Z09 ENCNTR FOR F/U EXAM AFT TRTMT FOR COND O 02/24/2018 KASI MYERS Terrie DIE ASSEMBLER Ot Z87.440 PERSONAL HISTORY OF URINARY (TRACT) INFE 03/01/2018 KING KASI D DIE ASSEMBLER Ot I51.7 CARDIOMEGALY 03/01/2018 LOUISADWOASALLY Falcon DIE ASSEMBLER Ot Z09 ENCNTR FOR F/U EXAM AFT TRTMT FOR COND O 03/01/2018 LOUISADWOASALLY Falcon DIE ASSEMBLER Ot Z87.440 PERSONAL HISTORY OF URINARY (TRACT) INFE 03/02/2018 SANTIAGO GARZA Ot 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 NEOPLASM OF UPPER LOBE, RIGHT 03/02/2018 SANTIAGO GARZA Ot 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 03/02/2018 SANTIAGO GARZA Ot 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 03/02/2018 KELLEE GARZAAN N Ot E05.00 THYROTOXICOSIS W DIFFUSE GOITER W/O THYR 03/02/2018 SANTIAGO GARZA Ot E80.6 OTHER DISORDERS OF BILIRUBIN METABOLISM 03/02/2018 SANTIAGO GARZA Ot I25.10 ATHSCL HEART DISEASE OF [place] CORONARY 03/02/2018 KAYLASANTIAGO Ot I27.20 PULMONARY HYPERTENSION, UNSPECIFIED 03/02/2018 SANTIAGO GARZA Ot Z51.11 ENCOUNTER FOR ANTINEOPLASTIC CHEMOTHERAP 03/02/2018 SANTIAGO GARZA Ot Z79.01 STEEL CHECKER (CURRENT) USE OF 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 03/02/2018 SANTIAGO GARZA Ot Z79.899 OTHER STEEL CHECKER (CURRENT) DRUG THERAPY 03/02/2018 SANTIAGO GARZA Ot Z82.49 FAMILY HX OF ISCHEM HEART DIS AND OTH DI 03/02/2018 SANTIAGO GARZA Ot 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 03/10/2018 KASI MYERS DIE ASSEMBLER Ot I51.7 CARDIOMEGALY 03/10/2018 KASI MYERS DIE ASSEMBLER Ot Z09 ENCNTR FOR F/U EXAM AFT TRTMT FOR COND O 03/10/2018 KASI MYERS DIE ASSEMBLER Ot Z87.440 PERSONAL HISTORY OF URINARY (TRACT) INFE 03/22/2018 SANTIAGO GARZA Ot 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 NEOPLASM OF UPPER LOBE, RIGHT 03/22/2018 SANTIAGO GARZA Ot 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 03/22/2018 SANTIAGO GARZA Ot 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 03/22/2018 SANTIAGO GARZA Ot E05.00 THYROTOXICOSIS W DIFFUSE GOITER W/O THYR 03/22/2018 SANTIAGO GARZA Ot E80.6 OTHER DISORDERS OF BILIRUBIN METABOLISM 03/22/2018 SANTIAGO GARZA Ot I25.10 ATHSCL HEART DISEASE OF [place] CORONARY 03/22/2018 SANTIAGO GARZA Ot I27.20 PULMONARY HYPERTENSION, UNSPECIFIED 03/22/2018 SANTIAGO GARZA Ot Z51.11 ENCOUNTER FOR ANTINEOPLASTIC CHEMOTHERAP 03/22/2018 SANTIAGO GARZA Ot Z79.01 FPC (CURRENT) USE OF 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 03/22/2018 SANTIAGO GARZA Ot Z79.899 OTHER STEEL CHECKER (CURRENT) DRUG THERAPY 03/22/2018 SANTIAGO GARZA Ot Z82.49 FAMILY HX OF ISCHEM HEART DIS AND OTH DI 03/22/2018 SANTIAGO GARZA Ot 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 Procedures Code Description [place] [address] ROUTINE VENIPUNCTURE 06/11/2013 00300 TSH 06/11/2013 50940 T4 FREE 06/13/2013 69624 T3 TOTAL 06/13/2013 91686 ROUTINE VENIPUNCTURE 07/24/2013 67952 BONE MINERAL DENSITY, HEEL US (IN HOUSE) 07/24/2013 24419 MAMMOGRAM, SCREENING 07/24/2013 38596 CBC 07/25/2013 GENERAL S NOLAN GUZMAN 08/21/2013 20129 HEMOCCULT 08/21/2013 17618 HEMOCCULT 08/21/2013 48579 HEMOCCULT 08/29/2013 40434 HEMOCCULT 08/29/2013 38264 ROUTINE VENIPUNCTURE 11/08/2013 62305 THYROID IMAGING WITH UPTAKE 11/08/2013 23430 CBC 11/08/2013 24480 LIPID PANEL 11/08/2013 01498 T4 FREE 11/08/2013 21644 TSH 11/08/2013 27810 T3 TOTAL 11/08/2013 99082 ROUTINE VENIPUNCTURE 04/12/2014 2351845 GFR CALC (RESULT ONLY) 04/12/2014 54430 CMP 04/12/2014 40652 T4 FREE 04/12/2014 75454 TSH 04/12/2014 08672 T3 TOTAL 04/12/2014 ENDOCRINO RADHA HALL 04/17/2014 65875 UA W/ CULTURE IF INDICATED 05/24/2014 42194 CULTURE URINE 05/24/2014 66228 ROUTINE VENIPUNCTURE 05/31/2014 32668 T4 FREE 05/31/2014 19225 TSH 05/31/2014 62490 T3 TOTAL 05/31/2014 CARDIOLOG CHANEL TOMLINSON 10/01/2014 70943 EKG, TRACING (IN-HOUSE) 10/01/2014 Results Test Result [...] 12/27/17 08:50 Bacterial urine culture SEE COMMEN NR COLONY COUNT . NRG FTX;REPORTABLE 40,000 CFU/ML NR FREE TEXT ENTRY 2 RML REPORTED AT 1205, 12-28-2017 NR FREE TEXT ENTRY 3 RML SUSCEPTIBILITY 12-29-17, 0905 [facility] RML Sensitivity Panel - 12/27/17 08:50 Gentamicin [...] VLDL measurement (mass/volume) 19 mg/ dL 5-40 Complete blood count (CBC) with automated white blood cell (WBC) differential - 02/04/18 11:00 Blood leukocytes automated count (number/volume) 17.6 10*3/uL 4.3-11.0 Blood erythrocytes automated count (number/volume) 4.50 10*6/uL 4.35-5.85 Venous blood hemoglobin measurement (mass/volume) 13.6 g/dL 11.5-16.0 Blood hematocrit (volume fraction) 36 % 35-52 Automated erythrocyte mean corpuscular volume 79 [foz_us] 80-99 Automated erythrocyte mean corpuscular hemoglobin (mass per erythrocyte) 30 pg 25-34 Automated erythrocyte mean corpuscular hemoglobin concentration measurement ( mass/volume) 38 g/dL 32-36 Automated erythrocyte distribution width ratio 13.1 % 10.0-14.5 Automated blood platelet count (count/volume) 223 10*3/uL 130-400 Automated blood platelet mean volume measurement 9.1 [foz_us] 7.4-10.4 Automated blood neutrophils/100 leukocytes 88 % 42-75 Automated blood lymphocytes/100 leukocytes 6 % 12-44 Blood monocytes/100 leukocytes 6 % 0-12 Automated blood eosinophils/100 leukocytes 0 % 0-10 Automated blood basophils/100 leukocytes 0 % 0-10 Blood neutrophils automated count (number/volume) 15.5 10*3 1.8-7.8 Blood lymphocytes automated count (number/volume) 1.0 10*3 1.0-4.0 Blood monocytes automated count (number/volume) 1.1 10*3 0.0-1.0 Automated eosinophil count 0.0 10*3/uL 0.0-0.3 Automated blood basophil count (count/volume) 0.0 10*3/uL 0.0-0.1 CULTURE, URINE - 03/12/18 15:07 CULTURE, URINE, ROUTINE SEE NOTE NRG Encounters ACCT No. Visit Date/Time Discharge Status Pt. Type Provider Facility Loc./Unit Complaint [id number] 03/22/2018 11:09:00 03/22/2018 11:09:00 CAN Preadmit RADHA HALL DO [facility] [id number] 03/13/2018 11:37:00 03/13/2018 23:59:59 CLS Outpatient MARTIN MUHAMMAD [facility] CARD LUNG CANCER [id number] 02/22/2018 02:49:00 02/22/2018 23:59:59 CLS Outpatient KASI MYERS APRN [facility] [id number] 12/27/2017 08:37:00 12/28/2017 00:01:00 DIS Outpatient SANTIAGO GARZA [facility] ONC [id number] 11/19/2017 09:57:00 11/19/2017 23:59:59 CLS Outpatient MARTIN MUHAMMAD [facility] DIZZINESS [id number] 10/06/2017 11:28:00 10/06/2017 23:59:59 CLS Outpatient SANTIAGO GARZA [facility] M25.511 RIGHT SHOULDER PAIN [id number] 09/12/2017 07:43:00 09/12/2017 14:50:00 DIS Outpatient SANTIAGO GARZA N [facility] LUNG CA [id number] 09/05/2017 12:55:00 09/11/2017 00:01:00 DIS Outpatient SANTIAGO GARZA N [facility] ONC [id number] 09/09/2017 10:22:00 09/09/2017 23:59:59 CLS Outpatient SANTIAGO GARZA N [facility] CARD C34.90 LUNG CA [id number] 08/31/2017 08:46:00 08/31/2017 23:59:59 CLS Outpatient MANUEL CARVER MD [facility] [id number] 07/07/2017 11:20:00 07/07/2017 23:59:59 CLS Outpatient KAYLASANTIAGO N [facility] CARD LUNG CANCER C34.90 [id number] 06/10/2017 09:47:00 06/10/2017 23:59:59 CLS Outpatient RADHA HALL DO [facility] [id number] 06/10/2017 08:26:00 06/10/2017 12:41:00 DIS Outpatient CHRISTOPHER OLIVA MD [facility] ONC [id number] 04/11/2017 14:47:00 05/11/2017 08:30:00 DIS Outpatient KAYLASANTIAGO N [facility] ONC [id number] 03/14/2017 10:56:00 03/26/2017 00:01:00 DIS Outpatient SANTIAGO GARZA N [facility] ONC [id number] 03/07/2017 10:58:00 03/07/2017 23:59:59 CLS Outpatient MARTIN MUHAMMAD [facility] LUNG CA C34.81 [id number] 02/07/2017 10:19:00 03/03/2017 00:01:00 DIS Outpatient KAYLASANTIAGO SOLARES N [facility] ONC [id number] 01/07/2017 07:25:00 01/07/2017 23:59:59 CLS Outpatient LATRICE EUBAKNS [facility] I25.10 C34.81 R00.2 [id number] 01/07/2017 07:21:00 01/07/2017 23:59:59 CLS Outpatient SANTIAGO GARZA [facility] C34.81 Z51.11 [id number] 11/11/2016 10:14:00 11/28/2016 00:01:00 DIS Outpatient SANTIAGO GARZA [facility]C [id number] 11/11/2016 13:29:00 11/11/2016 23:59:59 CLS Outpatient MARTIN MUHAMMAD BUSINESS RELATIONS MANAGER [facility] R05 COUGH [id number] 11/01/2016 10:46:00 11/01/2016 23:59:59 CLS Outpatient MARTIN MUHAMMAD BUSINESS RELATIONS MANAGER [facility] CARD I27.2,Z51.81,I25.10 [id number] 09/27/2016 09:22:00 09/27/2016 23:59:59 CLS Outpatient RADHA HALL DO L [facility] [id number] 09/16/2016 09:01:00 09/16/2016 16:05:00 DIS Outpatient SANTIAGO GARZA [facility] LUNG CA,MASS OF UPPER LOBE OF RT LUNG [id number] 07/05/2016 08:21:00 07/05/2016 23:59:59 CLS Outpatient RADHA HALL DO L [facility] GRAVES DISEASE [id number] 06/07/2016 10:18:00 06/27/2016 00:01:00 DIS Outpatient SANTIAGO GARZA [facility] [id number] 06/09/2016 12:41:00 06/09/2016 23:59:59 CLS Outpatient SANTIAGO GARZA [facility] DIZZINESS,NON SMALL CELL LUNG CA [id number] 06/04/2016 11:00:00 06/04/2016 23:59:59 CLS Outpatient MARTIN MUHAMMAD BUSINESS RELATIONS MANAGER [facility] CARD LUNG CANCER [id number] 03/29/2016 09:04:00 03/29/2016 23:59:59 CLS Outpatient RADHA HALL DO L [facility] [id number] 01/14/2016 10:17:00 02/17/2016 00:01:00 DIS Outpatient SANTIAGO GARZA Cristin [facility]C [id number] 02/02/2016 08:19:00 02/02/2016 23:59:59 CLS Outpatient RADHA HALL DO L [facility] GRAVES DRIVES [id number] 12/30/2015 07:30:00 12/30/2015 23:59:59 CLS Outpatient CHANEL TOMLINSON MD [facility] PALPITATIONS,PULMONARY ARTERY,SOB [id number] 12/12/2015 13:16:00 12/12/2015 23:59:59 CLS Outpatient RAFAEL BARTLETT RADHA Ollie [facility] NECK PAIN,GRAVES DISEASE [id number] 11/20/2015 08:49:00 11/20/2015 23:59:59 CLS Outpatient MARTIN MUHAMMAD BUSINESS RELATIONS MANAGER [facility]C [id number] 11/19/2015 08:27:00 11/19/2015 23:59:59 CLS Outpatient MARTIN MUHAMMAD S BUSINESS RELATIONS MANAGER [facility] [id number] 10/08/2015 09:20:00 10/12/2015 00:01:00 DIS Outpatient SANTIAGO GARZA Cristin [facility] [id number] 10/07/2015 08:33:00 10/07/2015 23:59:59 CLS Outpatient RADHA HALL DO L [facility] [id number] 09/30/2015 10:39:00 09/30/2015 23:59:59 CLS Outpatient MARTIN MUHAMMAD S BUSINESS RELATIONS MANAGER [facility] CARD LUNG CA [id number] 09/12/2015 10:38:00 09/12/2015 23:59:59 CLS Outpatient MARTIN MUHAMMAD S BUSINESS RELATIONS MANAGER [facility] [id number] 08/21/2015 07:16:00 08/21/2015 23:59:59 CLS Outpatient RAFAEL DOJOIERADHA L [facility] GRAVES DISEASE [id number] 07/04/2015 08:29:00 07/04/2015 23:59:59 CLS Outpatient RAFAEL DOJOIERADHA L [facility] [id number] 07/04/2015 08:26:00 07/04/2015 23:59:59 CLS Outpatient MARTIN MUHAMMADP [facility]C [id number] 05/30/2015 08:30:00 06/26/2015 00:01:00 DIS Outpatient SANTIAGO GARZA [facility] [id number] 05/30/2015 07:55:00 05/30/2015 23:59:59 CLS Outpatient SANTIAGO GARZA [facility] LUNG CANCER [id number] 05/20/2015 08:42:00 05/20/2015 23:59:59 CLS Outpatient RAFAEL DORADHA L [facility] MUSCLE CRAMPS,GRAVES ' DI [id number] 05/09/2015 12:12:00 05/09/2015 23:59:59 CLS Outpatient RAFAEL DOJOIERADHA L [facility] GRAVES'DI [id number] 04/25/2015 08:31:00 04/25/2015 23:59:59 CLS Outpatient MARTIN MUHAMMAD BUSINESS RELATIONS MANAGER [facility] [id number] 03/12/2015 12:19:00 03/26/2015 00:01:00 DIS Outpatient SANTIAGO GARZA [facility] [id number] 02/14/2015 13:20:00 03/10/2015 00:01:00 DIS Outpatient SANTIAGO GARZA [facility] [id number] 02/28/2015 08:16:00 02/28/2015 23:59:59 CLS Outpatient MARTIN MUHAMMAD BUSINESS RELATIONS MANAGER [facility] [id number] 01/06/2015 12:22:00 01/06/2015 23:59:59 CLS Outpatient SANTIAGO GARZA [facility] [id number] 12/12/2014 12:04:00 12/12/2014 16:50:00 DIS Outpatient SANTIAGO GARZA [facility] ENLARGED LYMPH NODE [id number] 12/04/2014 09:04:00 12/04/2014 17:40:00 DIS Outpatient FATEMEH PAYNE MD [facility] SDC LUNG CANCER [id number] 11/11/2014 12:37:00 11/11/2014 23:59:59 CLS Outpatient MEMO BARTLETT KAYLIE Jean [facility] NODULE [id number] 11/11/2014 10:45:00 11/11/2014 23:59:59 CLS Preadmit MEMO BARTLETT KAYLIE Jean [facility] LUNG MASS [id number] 11/05/2014 07:41:00 11/05/2014 23:59:59 CLS Outpatient MEMO BARTLETT KAYLIE Jean [facility] LUNG MASS [id number] 10/31/2014 11:03:00 10/31/2014 23:59:59 CLS Outpatient MEMO BARTLETT KAYLIE Miranda [facility] PULMONARY ARTERY HTN, DVT ,SOB [id number] 10/16/2014 06:36:00 10/16/2014 13:30:00 DIS Outpatient CHANEL TOMLINSON MD [facility] CATH ABNORMAL STRESS ECHO,SOB ,CP,PALPITATIONS,HTP [id number] 10/09/2014 08:15:00 10/09/2014 23:59:59 CLS Outpatient CHANEL TOMLINSON MD [facility] CARD BILAT LEG PAIN,DYSPNEA, HTN [id number] 10/07/2014 08:45:00 10/07/2014 23:59:59 CLS Outpatient CHANEL TOMLINSON MD [facility] CARD PALP, DVT, SOB [id number] 08/03/2013 13:29:00 08/03/2013 23:59:59 CLS Outpatient MANUEL CARVER MD [facility] SCREENING [id number] 03/22/2018 10:37:00 ACT Outpatient SANTIAGO GARZA [facility] [id number] 02/06/2018 14:04:00 Document Registration [id number] 01/27/2018 07:23:00 Document Registration [id number] 09/02/2016 10:31:00 Document Registration [id number] 07/18/2015 07:37:00 Document Registration [id number] 10/01/2014 10:35:00 10/01/2014 23:59:59 CLS Outpatient MANUEL CARVER MD [id number] 09/13/2014 09:15:00 09/13/2014 23:59:59 CLS Outpatient MANUEL CARVER MD [id number] 07/03/2014 12:37:00 07/03/2014 23:59:59 CLS Outpatient MORENA DUMONT DDS [id number] 05/31/2014 08:06:00 05/31/2014 23:59:59 CLS Outpatient MANUEL CARVER MD [id number] 05/24/2014 14:53:00 05/24/2014 23:59:59 CLS Outpatient GITA PATTERSON DO [id number] 04/17/2014 14:44:00 04/17/2014 23:59:59 CLS Outpatient MANUEL CARVER MD [id number] 03/20/2014 12:53:00 03/20/2014 23:59:59 CLS Outpatient FLORENCIO DUMONT DDS [id number] 11/12/2013 13:56:00 11/12/2013 23:59:59 CLS Outpatient GITA PATTERSON DO [id number] 11/08/2013 08:23:00 11/08/2013 23:59:59 CLS Outpatient GITA PATTERSON DO [id number] 08/29/2013 11:37:00 08/29/2013 23:59:59 CLS Outpatient MANUEL CARVER MD [id number] 08/21/2013 11:47:00 08/21/2013 23:59:59 CLS Outpatient MANUEL CARVER MD [id number] 07/24/2013 15:51:00 07/24/2013 23:59:59 CLS Outpatient MANUEL CARVER MD [id number] 06/14/2013 14:22:00 06/14/2013 23:59:59 CLS Outpatient MEHUL SMITH, MANUEL Amaral [id number] 04/20/2013 13:19:00 04/20/2013 23:59:59 [place] [id number] 03/12/2018 14:30:00 03/12/2018 23:59:59 CLS Outpatient KASI [facility] [id number] 03/12/2018 14:30:00 Document Registration
[2018-03-30] MEDS ORDERED: ceFAZolin INJECTION 1,000 MG in NS (IVPB) 50 ML IV ONE (09:45)
[2018-03-30] MEDS ORDERED: 0.9% SODIUM CHLORIDE PF INJ 20 ML VIAL ONE (10:12)
[2018-03-30] MEDS ORDERED: LIDOCAINE 1% INJ 20 ML 20 ML VIAL ONE (10:12)
[2018-03-30] MEDS ORDERED: LIDOCAINE PF 2% 2 ML (XYLOCAINE) VIAL ONE ×2 (10:12→10:13)
[2018-03-30] MEDS ORDERED: MIDAZOLAM 2 MG/2 ML (VERSED) VIAL ONE (10:12)
[2018-03-30] MEDS ORDERED: fentaNYL INJECTION 100 MCG/2 ML AMP ONE (10:12)
[2018-03-30] MEDS ORDERED: HEParin (CENTRAL IV FLUSH) 500 UNIT/5 ML SYR ONE (10:12)
[2018-03-30] MEDS ORDERED: BUPIVACAINE 0.5% 30 ML (SENSORCAINE) VIAL ONE (10:12)
[2018-03-30] MEDS ORDERED: proPOfol 200 MG/20 ML (DIPRIVAN) VIAL IV ONE ×2 (10:12→11:18)
--- NOTE | 2018-03-30 10:35 | Progress Note-Pre Operative ---
Pre-Operative Progress Note H&P Reviewed The H&P was reviewed, patient examined and no changes noted. Date Seen by Provider: Mar 30, 2018 Time Seen by Provider: 10:34 Date H&P Reviewed: Mar 30, 2018 Time H&P Reviewed: 10:35 Pre-Operative Diagnosis: lung cancer NOLAN GUZMAN DO Mar 30, 2018 10:35
[2018-03-30] MEDS ORDERED: ACHD5005 PO (11:34)
--- NOTE | 2018-03-30 11:36 | Discharge Inst-Simple/Standard ---
Discharge Inst-Standard Discharge Medications New, Converted or Re-Newed RX: RX on Chart Patient Instructions/Follow Up Plan of Care/Instructions/FU: 2 weeks Roth Activity as Tolerated: No Discharge Diet: Regular Diet Other Inst to Patient Follow up Appt: Make appointment for 2 week. Instructions: No lifting greater than 10 pounds. No strenuous activity. May shower in 24 hours, no tub bath or soaking. Use incentive spirometer at home as directed. No Smoking Skin/Wound Care: You have special glue over incisions it will fall off on its own. Symptoms to Report: Appetite Changes, Extremity Discoloration, Numbness/Tingling, Swelling Increased , Bleeding Excessive, Eyesight Changes, Pain Increased, Urine Color Change, Constipation(Persistent), Fever over 101 degree F, Pain/Pressure in chest, Urinating Difficulty, Cough Up/Vomit Blood, Heart Beat Irreg/Pounding, Pain/ Pressure in jaw, Vaginal Bleeding Increase, Cramps in feet or legs, Lightheadedness, Pain/Pressure in shoulder, Diarrhea(Persistent), Memory Changes Suddenly, Questions/Concerns, Weight gain consecutive days, Dizziness/ Fainting, Nausea/Vomiting, Shortness of Breath, Weight gain over 2 pounds If questions or concerns contact your physician Or seek help at emergency department. NOLAN ROTH DO Mar 30, 2018 11:36
--- NOTE | 2018-03-30 11:37 | Progress Note-Post Operative ---
Post-Operative Progess Note Surgeon (s)/Graphic Design Manager (s) Surgeon NOLAN GUZMAN DO Graphic Design Manager: na Pre-Operative Diagnosis lung cancer Post-Operative Diagnosis same Procedure & Operative Findings Date of Procedure 03/30/18 Procedure Performed/Findings right u/s guided port placement Anesthesia Type mac c local Estimated Blood Loss Estimated blood loss (mL): min Specimens/Packing Specimens Removed na NOLAN GUZMAN DO Mar 30, 2018 11:37
[2018-03-30] MEDS ORDERED: ONDANSETRON 4 MG/2 ML (SDV) Z0FRAN IVP PRN (11:45)
[2018-03-30] MEDS ORDERED: HYDROmorphone 2 MG/ML VIAL (DILAUDID) IV ONE (11:45)
[2018-03-30 12:05] VITALS: BP 169/80
[2018-03-30 12:35] VITALS: BP 143/73
--- NOTE | 2018-03-30 12:36 | Anesthesia-General Post-Op ---
General Patient Condition Mental Status/LOC: Same as Preop Cardiovascular: Satisfactory Nausea/Vomiting: Absent Respiratory: Satisfactory Pain: Controlled Complications: Absent Post Op Complications Complications None Follow Up Care/Instructions Patient Instructions None needed. Anesthesia/Patient Condition Patient Condition Patient is doing well, no complaints, stable vital signs, no apparent adverse anesthesia problems. No complications reported per nursing. LUISA MOORE CRNA Mar 30, 2018 12:36
--- NOTE | 2018-03-30 12:48 | Diagnostic Imaging Report ---
INDICATION: Groshong catheter placement. TIME OF EXAM: 11:53 AM Correlation is made with prior study 02/22/2018. FINDINGS: Right chest wall catheter has been placed, has a tip at the SVC right atrial junction. No pneumothorax is seen. Extensive bilateral pulmonary infiltrates persist. There is no effusion. IMPRESSION: Right chest wall catheter placement. No pneumothorax is seen. Dictated by: Dictated on workstation # [id number]
[2018-03-30 13:05] VITALS: BP 143/73
[2018-03-30] MEDS ORDERED: ACETAMINOPHEN 500 MG TAB (TYLENOL) PO ONE (13:15)
[2018-03-30] MEDS ORDERED: ACETAMINOPHEN 500 MG TAB (TYLENOL) ONE (13:16)
--- NOTE | 2018-03-30 13:50 | Diagnostic Imaging Report ---
INDICATION: Fluoroscopy for PowerPort insertion. FINDINGS: Fluoroscopy was provided by Dr. Roth during a right chest wall port placement. 23 seconds of fluoroscopy was utilized. Right chest wall port has its tip overlying the SVC. IMPRESSION: Fluoroscopy during power port placement. Dictated by: Dictated on workstation # [id number]
--- NOTE | 2018-03-30 14:15 | OPERATIVE REPORT ---
DATE OF SERVICE: 03/30/2018 PREOPERATIVE DIAGNOSIS: Lung cancer. POSTOPERATIVE DIAGNOSIS: Lung cancer. PROCEDURE: Right ultrasound-guided port placement, right internal jugular vein. SURGEON: Nolan Roth DO. ANESTHESIA: MAC with local. ESTIMATED BLOOD LOSS: Minimal. COMPLICATIONS: None. INDICATIONS: The patient is a 72-year-old female with stage IV lung cancer. She understands risks and benefits of procedure and wished to proceed with procedure. Consent was signed on the chart. DESCRIPTION OF PROCEDURE: The patient was taken to the operating suite. She was prepped and draped in sterile fashion. Surgical pause was performed. Ultrasound was used to locate the right internal jugular vein. Local anesthetic was infiltrated in the area and under guidance of the ultrasound, the right internal jugular vein was then accessed, dark nonpulsatile blood was withdrawn. The micro access wire was inserted through the micro access needle and the fluoroscopy assured proper placement. A 11 blade scalpel was used to make a small skin incision and dilator was then advanced over the wire and dilator and wire were removed from the sheath and a normal guidewire was inserted through the sheath and the sheath was then removed. Fluoroscopy again assured proper placement. Wire was secured. Local anesthetic was infiltrated into the neck and onto the right chest for pocket creation. A 15 blade scalpel was used to make a small incision and blunt dissection was used to create the pocket. Dilator sheath was then advanced over the wire under fluoroscopy and the dilator and wire were removed. The Groshong catheter was inserted into the sheath and the sheath was then removed. The Groshong wire was removed. The catheter was then tunneled from the insertion point down to the pocket that was created. Fluoroscopy was used to cut the catheter to length and then secured to the port in usual fashion. The port was then placed in the pocket and the port was accessed without difficulty. First, I parker blood and then flushed with saline and then heparin without difficulty. The subcutaneous tissues were then reapproximated using 3-0 Vicryl. The area was then washed and dried and Skin Affix was placed over the incisions. Fluoroscopy assured proper placement. The patient tolerated the procedure well without any complications, taken to recovery room in stable condition. Chest x-ray pending. Job ID: [id number] DocumentID: [id number] Dictated Date: 03/30/2018 11:39:53 Management Department Chair Date: 03/30/2018 14:15:05 Dictated By: NOLAN ROTH DO
== END 2018-03-30 13:47 | disposition home or self-care (01) ==
LOC: SDC 09:23
PROVIDERS: ATTEND Surgery
DX: C34.90 Malignant neoplasm of unspecified part of unspecified bronchus or lung (principal); C79.51 Secondary malignant neoplasm of bone; E05.00 Thyrotoxicosis with diffuse goiter without thyrotoxic crisis or storm; Z79.01 Long term (current) use of anticoagulants; Z79.899 Other long term (current) drug therapy; I10 Essential (primary) hypertension; I25.10 Atherosclerotic heart disease of native coronary artery without angina pectoris; Z86.718 Personal history of other venous thrombosis and embolism; Z86.73 Personal history of transient ischemic attack (TIA), and cerebral infarction without residual deficits; K21.9 Gastro-esophageal reflux disease without esophagitis
CPT/HCPCS: 71045; 87081

== ENCOUNTER → 2018-05-01 | Outpatient (CLI) | payer MEDICAID ==
[~2018-05-01] MED LIST changes: +ACHD5005 PO
--- NOTE | 2018-05-01 11:31 | Diagnostic Imaging Report ---
CLINICAL INDICATION: Follow up lung cancer. EXAM: Chest x-ray, PA and lateral views. COMPARISON: Chest x-ray dated 03/30/2018. FINDINGS: Ynrzuy-y-Jddj is again seen overlying the right chest with tip in the distal superior vena cava. There is slight improved aeration of both lung ruiz with persistent architectural distortion and curvilinear and patchy opacities throughout both lungs. There is decreased consolidation in the right upper lobe with continued amorphous airspace opacities and architectural distortion in the right upper lobe region. There is also slight superior elevation of the right hilar regions with associated elevation of the right hemidiaphragm. Pulmonary vasculature and cardiac silhouette are within normal limits. There is no pleural effusion or pneumothorax. Bones show no significant abnormality. IMPRESSION: 1: There is improved aeration of both lungs with persistent patchy and curvilinear airspace opacities with architectural distortion seen throughout both lungs. There is decreased consolidation in the right upper lung field with area of amorphous consolidation remaining. 2: There is stable decreased volume of the right lung with elevation of the right hemidiaphragm. Dictated by: Dictated on workstation # [id number]
== END ==
LOC: RAD 08:41
PROVIDERS: ATTEND Nurse Practitioner Adult Health
DX: C34.90 Malignant neoplasm of unspecified part of unspecified bronchus or lung (principal); J18.1 Lobar pneumonia, unspecified organism
CPT/HCPCS: 71046

== ENCOUNTER → 2018-05-29 | Outpatient (CLI) | payer MEDICAID ==
--- NOTE | 2018-05-29 10:54 | Diagnostic Imaging Report ---
Indication: Followup lung cancer. Time of exam: 10:38 AM Correlation is made with prior study from 05/01/2018. Right chest wall port has tip overlying the SVC. Patchy opacities in bilateral lungs appear similar to prior examination from one month earlier. Right hemidiaphragm is elevated. There is no effusion or pneumothorax. Impression: Stable bilateral pulmonary opacities, most confluent in the right upper lobe when compared with examination from one month earlier. Dictated by: Dictated on workstation # [id number]
== END ==
LOC: RAD 10:04
PROVIDERS: ATTEND Nurse Practitioner Adult Health
DX: C34.90 Malignant neoplasm of unspecified part of unspecified bronchus or lung (principal); C79.51 Secondary malignant neoplasm of bone
CPT/HCPCS: 71046

== ENCOUNTER → 2018-06-22 | Outpatient (CLI) | payer MEDICAID ==
[~2018-06-22] MED LIST changes: +CATHETER FLUSH 10 ML SYR IV PRN; +IOHEXOL 350 MG/ML 100 ML (OMNIPAQUE 350) VIAL IV ONE; +NS 100 ML (IVPB) BAG IV ONE; +RECEIVED CONTRAST (Hold Metformin) IV SCH
--- NOTE | 2018-06-22 13:22 | Diagnostic Imaging Report ---
PROCEDURE: CT chest and abdomen with contrast. TECHNIQUE: Multiple contiguous axial images were obtained through the chest and abdomen after the administration of intravenous contrast. INDICATION: Lung cancer with metastasis to bone. COMPARISON: Comparison is made with prior CT from 03/13/2018. CT CHEST: A chest wall port has been placed, the tip appears to be in the SVC. No axillary lymphadenopathy is identified. Previously noted large right hilar mass posterior to the right mainstem bronchus is no longer visible. In addition, small lymph nodes in the left hilum previously seen are no longer seen. No definite mediastinal lymphadenopathy is detected. There is a small amount of pericardial fluid. No pleural fluid is seen. Parenchymal evaluation demonstrates some overall decrease in size of numerous pulmonary masses. Right upper lobe mass now measures approximately 1.8 x 1.9 cm compared with 2.9 x 2.2 cm. A more elongated mass just inferior to this in the right upper lobe is 2.6 x 1.3 cm compared with 2.7 x 1.5 cm. Mass in the posterolateral right lower lobe is now barely visible and previously measured 1.9 x 1.7 cm. Previously noted cavitary mass in posterior left lower lobe is also now barely visible. Numerous additional nodules in both lungs show decrease in size. Previously noted lesion involving the right lateral ninth rib is not as well seen on today's study. No new bony lesion is detected. IMPRESSION: Significantly improved appearance of the chest since the exam from 03/13/2018. There has been significant reduction in multiple bilateral pulmonary masses. THe large mass in the right hilum is no longer visible. No new pulmonary mass or thoracic lymphadenopathy is seen. CT ABDOMEN: Large cystic mass in the dome of the liver is again seen. Solid mass in the left lobe of the liver has significantly decreased in size and now measures approximately 2.0 x 1.4 cm compared with 5.1 x 5.1 cm. A second mass in the inferior left lobe has also decreased in size now measuring 1.5 x 1.3 cm compared with 3.2 x 2.1 cm. No new liver mass is seen. Gallbladder is unremarkable. The pancreas and spleen are unremarkable. No adrenal mass is detected. Kidneys are unremarkable. Aorta is nonaneurysmal. No central retroperitoneal or mesenteric lymphadenopathy is seen. The bowel loops are normal caliber. There is no ascites. Bony structures demonstrate a small sclerotic focus within the right aspect of the S1 vertebral body. This was not definitely included on prior CT. No other definite sclerotic lesions are seen. IMPRESSION: Significant decrease in size of left lobe liver masses since prior CT from 03/13/2018. No new abdominal mass or evidence of abdominal lymphadenopathy is detected. Dictated by: Dictated on workstation # [id number]
--- NOTE | 2018-06-22 15:53 | Diagnostic Imaging Report ---
INDICATION: Lung cancer. TECHNIQUE: Patient was administered 26.5 mCi technetium 99m MDP intravenously and whole body imaging was performed after a three-hour delay. COMPARISON: Correlation is made with prior exam from 03/13/2018. FINDINGS: Uptake of activity by the axial and appendicular skeleton is seen. There is uptake by both kidneys with excretion into the urinary bladder. Previously noted foci of activity involving left-sided posterior ribs are again noted and appear slightly less prominent on today's study. The activity involving the lateral portion of the right ninth rib also is visible but slightly less prominent. Areas of abnormal uptake previously seen in the midshaft of the femur are barely visible on today's study. Activity involving upper lateral right ribs also is slightly less prominent on today's study. No new foci of tracer accumulation are seen. IMPRESSION: Eiusgi-ib-vpkwdlty whole body bone scan since exam from 03/13/2018. Previously noted abnormal regions remain present but slightly less prominent. No new abnormality is detected. Dictated by: Dictated on workstation # [id number]
== END ==
LOC: CARD 11:33
PROVIDERS: ATTEND Internal Medicine Hematology & Oncology
DX: C34.90 Malignant neoplasm of unspecified part of unspecified bronchus or lung (principal); C79.51 Secondary malignant neoplasm of bone
CPT/HCPCS: 71260; 74160; 78306

== ENCOUNTER → 2018-09-04 | Outpatient (CLI) | payer MEDICAID ==
[~2018-09-04] MED LIST changes: -CATHETER FLUSH 10 ML SYR IV PRN; -IOHEXOL 350 MG/ML 100 ML (OMNIPAQUE 350) VIAL IV ONE; -NS 100 ML (IVPB) BAG IV ONE; -RECEIVED CONTRAST (Hold Metformin) IV SCH
== END ==
LOC: CARD 12:19
PROVIDERS: ATTEND Physician Assistant
DX: I25.10 Atherosclerotic heart disease of native coronary artery without angina pectoris (principal); R07.9 Chest pain, unspecified; R00.2 Palpitations; R06.02 Shortness of breath
CPT/HCPCS: 93306

== ENCOUNTER → 2018-09-07 | Outpatient (CLI) | payer MEDICAID ==
--- NOTE | 2018-09-07 10:32 | NUR ---
HOME 02 EVAL--- PT SP02 DROPPED TO 86%--- PTS SP02 REID TO 95 AFTER 3MINS ON 3LPM NC. PT QUALIFIES FOR HOME 02 ATT. Addendum: 09/07/18 at 1033 by RAI HARDING RT Amended: Links added.
== END ==
LOC: RT 09:52
PROVIDERS: ATTEND Nurse Practitioner Adult Health
DX: R06.02 Shortness of breath (principal); C34.90 Malignant neoplasm of unspecified part of unspecified bronchus or lung; C79.51 Secondary malignant neoplasm of bone
CPT/HCPCS: 94761

== ENCOUNTER → 2018-09-11 | Outpatient (CLI) | payer MEDICAID | LOC: LAB 09:14 | PROVIDERS: ATTEND Internal Medicine Endocrinology, Diabetes & Metabolism | DX: E03.2 Hypothyroidism due to medicaments and other exogenous substances (principal); E05.00 Thyrotoxicosis with diffuse goiter without thyrotoxic crisis or storm | CPT/HCPCS: 84443 ==

== ENCOUNTER → 2018-09-12 | Outpatient (CLI) | payer MEDICAID ==
[~2018-09-12] MED LIST changes: +BARIUM SUSPENSION 2.1% (VANILLA SILQ) 450 ML PO ONE; +HOLD METFORMIN - RECEIVED CONTRAST 20 ML VIAL IV SCH; +IOHEXOL 350 MG/ML 100 ML (OMNIPAQUE 350) VIAL IV ONE
--- NOTE | 2018-09-12 15:21 | Diagnostic Imaging Report ---
PROCEDURE: CT chest and abdomen with contrast. TECHNIQUE: Multiple contiguous axial images were obtained through the chest and abdomen after the administration of intravenous contrast. INDICATION: Non-small cell carcinoma with liver metastases. COMPARISON: Correlation is made with prior CT from 06/22/2018. FINDINGS: CT chest: A right chest wall port remains in place. No axillary lymphadenopathy is seen. No hilar or mediastinal mass is identified. No significant pericardial or pleural effusion is identified. Previously noted spiculated mass in right upper lobe measures approximately 1.5 x 1.8 cm compared with 1.9 x 1.8 cm. The more elongated density just inferior to this measures 2.5 x 1.2 cm compared with 2.6 x 1.3 cm. Tiny nodular density in left lower lobe posteriorly measures 5 mm compared with 8 mm. No new mass is seen. There is some minimal nodularity in the posterior right lower lobe, stable. Linear densities throughout both lungs persist and likely represent scarring. IMPRESSION: Overall stable to slight improvement in bilateral pulmonary masses when compared with examination from 06/22/2018. No thoracic lymphadenopathy or chest effusion is seen. CT abdomen: A large cystic mass in dome of the liver appears stable. Low-density mass in left lobe has decreased in size, now measuring 1.3 x 0.6 cm compared with 2.0 x 1.4 cm. No new liver mass is identified. The gallbladder is unremarkable. Pancreas and spleen are unremarkable. No adrenal mass is detected. Kidneys are unremarkable. Aorta is non-aneurysmal. No central retroperitoneal or mesenteric lymphadenopathy is seen. The bowel loops are normal caliber. There is no ascites. Bony structures appear nonacute. IMPRESSION: Decrease in size of left lobe of liver mass when compared with exam from 06/22/2018. No new abnormality is detected. Dictated by: Dictated on workstation # [id number]
--- NOTE | 2018-09-12 15:59 | Diagnostic Imaging Report ---
INDICATION: Lung carcinoma. TECHNIQUE: The patient was administered 25.4 mCi technetium-99m MDP intravenously and whole body imaging was performed after a three-hour delay. COMPARISON: Correlation is made with prior bone scan from 06/22/2018. FINDINGS: Normal uptake in the axial and appendicular skeleton is seen. There is uptake by the kidneys with excretion to urinary bladder. Vague uptake involving the left-sided posterior rib appears stable to perhaps slightly less prominent. Previously noted uptake involving the lateral portion of a right rib is also barely visible on today's study. Vague uptake in the midshaft of the femurs is barely visible on today's study. Vague uptake in the upper lateral right ribs is barely visible. No new foci or trace accumulation is seen. IMPRESSION: Stable whole body bone scan when compared with examination from 06/22/2018. Dictated by: Dictated on workstation # [id number]
== END ==
LOC: CARD 11:15
PROVIDERS: ATTEND Nurse Practitioner Adult Health
DX: C79.51 Secondary malignant neoplasm of bone (principal); C34.90 Malignant neoplasm of unspecified part of unspecified bronchus or lung; R09.02 Hypoxemia; R16.0 Hepatomegaly, not elsewhere classified
CPT/HCPCS: 71260; 74160; 78306

== ENCOUNTER 2018-09-25 08:37 | Outpatient (RCR) | payer MEDICAID ==
[2018-07-03 14:12] LABS: BASOPHILS % (AUTO) 0 % (0-10); EOSINOPHILS # (AUTO) 0.1 10^3/uL (0.0-0.3); EOSINOPHILS % (AUTO) 2 % (0-10); HEMATOCRIT 34 % (35-52); HEMOGLOBIN 11.4 G/DL (11.5-16.0); LYMPHOCYTES % (AUTO) 18 % (12-44); MEAN CORPUSCULAR HEMOGLOBIN 31 PG (25-34); MEAN CORPUSCULAR HGB CONC 33 G/DL (32-36); MEAN CORPUSCULAR VOLUME 93 FL (80-99); MEAN PLATELET VOLUME 9.7 FL (7.4-10.4); MONOCYTES # (AUTO) 0.4 X 10^3 (0.0-1.0); MONOCYTES % (AUTO) 8 % (0-12); NEUTROPHILS # (AUTO) 3.8 X 10^3 (1.8-7.8); NEUTROPHILS % (AUTO) 72 % (42-75); PLATELET COUNT 131 10^3/uL (130-400); RED CELL DISTRIBUTION WIDTH 14.8 % (10.0-14.5); WHITE BLOOD COUNT 5.3 10^3/uL (4.3-11.0)
[2018-07-03 14:39] LABS: BUN/CREATININE RATIO 25; CALCIUM 8.9 MG/DL (8.5-10.1); CARBON DIOXIDE 26 MMOL/L (21-32); CHLORIDE 99 MMOL/L (98-107); CREATININE SERUM 0.79 MG/DL (0.60-1.30); GFR ESTIMATED > 60; GLUCOSE 134 MG/DL (70-105); MAGNESIUM 2.1 MG/DL (1.8-2.4); POTASSIUM 3.7 MMOL/L (3.6-5.0); SODIUM 134 MMOL/L (135-145)
[2018-07-10 09:09] LABS: BASOPHILS % (AUTO) 0 % (0-10); EOSINOPHILS # (AUTO) 0.1 10^3/uL (0.0-0.3); EOSINOPHILS % (AUTO) 1 % (0-10); HEMATOCRIT 34 % (35-52); HEMOGLOBIN 11.3 G/DL (11.5-16.0); LYMPHOCYTES # (AUTO) 0.7 X 10^3 (1.0-4.0); LYMPHOCYTES % (AUTO) 13 % (12-44); MEAN CORPUSCULAR HEMOGLOBIN 31 PG (25-34); MEAN CORPUSCULAR HGB CONC 34 G/DL (32-36); MEAN CORPUSCULAR VOLUME 94 FL (80-99); MEAN PLATELET VOLUME 9.4 FL (7.4-10.4); MONOCYTES # (AUTO) 0.4 X 10^3 (0.0-1.0); MONOCYTES % (AUTO) 7 % (0-12); NEUTROPHILS # (AUTO) 4.1 X 10^3 (1.8-7.8); NEUTROPHILS % (AUTO) 79 % (42-75); PLATELET COUNT 126 10^3/uL (130-400); RED CELL DISTRIBUTION WIDTH 15.1 % (10.0-14.5); WHITE BLOOD COUNT 5.2 10^3/uL (4.3-11.0)
[2018-07-10 09:24] LABS: BUN/CREATININE RATIO 23; CALCIUM 8.5 MG/DL (8.5-10.1); CARBON DIOXIDE 25 MMOL/L (21-32); CHLORIDE 100 MMOL/L (98-107); CREATININE SERUM 0.74 MG/DL (0.60-1.30); GFR ESTIMATED > 60; GLUCOSE 134 MG/DL (70-105); MAGNESIUM 2.1 MG/DL (1.8-2.4); POTASSIUM 3.5 MMOL/L (3.6-5.0); SODIUM 135 MMOL/L (135-145)
[2018-07-17 09:36] LABS: BASOPHILS % (AUTO) 0 % (0-10); EOSINOPHILS % (AUTO) 1 % (0-10); HEMATOCRIT 33 % (35-52); HEMOGLOBIN 11.1 G/DL (11.5-16.0); LYMPHOCYTES # (AUTO) 0.7 X 10^3 (1.0-4.0); LYMPHOCYTES % (AUTO) 14 % (12-44); MEAN CORPUSCULAR HEMOGLOBIN 32 PG (25-34); MEAN CORPUSCULAR HGB CONC 34 G/DL (32-36); MEAN CORPUSCULAR VOLUME 94 FL (80-99); MEAN PLATELET VOLUME 8.7 FL (7.4-10.4); MONOCYTES # (AUTO) 0.4 X 10^3 (0.0-1.0); MONOCYTES % (AUTO) 9 % (0-12); NEUTROPHILS # (AUTO) 3.6 X 10^3 (1.8-7.8); NEUTROPHILS % (AUTO) 76 % (42-75); PLATELET COUNT 106 10^3/uL (130-400); RED CELL DISTRIBUTION WIDTH 14.9 % (10.0-14.5); WHITE BLOOD COUNT 4.7 10^3/uL (4.3-11.0)
[2018-07-17 09:56] LABS: ALANINE AMINOTRANSFERASE 6 U/L (0-55); ALKALINE PHOSPHATASE 75 U/L (40-136); BILIRUBIN,TOTAL 0.8 MG/DL (0.1-1.0); BUN/CREATININE RATIO 23; CALCIUM 8.8 MG/DL (8.5-10.1); CARBON DIOXIDE 28 MMOL/L (21-32); CHLORIDE 99 MMOL/L (98-107); GFR ESTIMATED > 60; GLUCOSE 115 MG/DL (70-105); MAGNESIUM 2.2 MG/DL (1.8-2.4); POTASSIUM 4.2 MMOL/L (3.6-5.0); SODIUM 133 MMOL/L (135-145)
--- NOTE | 2018-07-17 13:46 | Diagnostic Imaging Report ---
INDICATION: Lung cancer. TIME OF EXAMINATION: 9:43 AM. COMPARISON: 05/29/2018. FINDINGS: The right chest wall port remains in place with the tip overlying the SVC. The right hemidiaphragm is chronically elevated. Patchy interstitial and airspace densities in both mid and upper lung ruiz appear similar to the prior exam. No effusion is seen. There is no pneumothorax. IMPRESSION: Stable bilateral parenchymal densities when compared to the examination from 05/29/2018. Dictated by: Dictated on workstation # [id number]
[2018-07-24 09:27] LABS: BASOPHILS % (AUTO) 1 % (0-10); EOSINOPHILS # (AUTO) 0.1 10^3/uL (0.0-0.3); EOSINOPHILS % (AUTO) 1 % (0-10); HEMATOCRIT 34 % (35-52); HEMOGLOBIN 11.6 G/DL (11.5-16.0); LYMPHOCYTES # (AUTO) 0.8 X 10^3 (1.0-4.0); LYMPHOCYTES % (AUTO) 13 % (12-44); MEAN CORPUSCULAR HEMOGLOBIN 32 PG (25-34); MEAN CORPUSCULAR HGB CONC 34 G/DL (32-36); MEAN CORPUSCULAR VOLUME 94 FL (80-99); MEAN PLATELET VOLUME 9.1 FL (7.4-10.4); MONOCYTES # (AUTO) 0.8 X 10^3 (0.0-1.0); MONOCYTES % (AUTO) 12 % (0-12); NEUTROPHILS # (AUTO) 4.6 X 10^3 (1.8-7.8); NEUTROPHILS % (AUTO) 74 % (42-75); PLATELET COUNT 124 10^3/uL (130-400); RED CELL DISTRIBUTION WIDTH 14.9 % (10.0-14.5); WHITE BLOOD COUNT 6.2 10^3/uL (4.3-11.0)
[2018-07-24 09:53] LABS: ALANINE AMINOTRANSFERASE 7 U/L (0-55); ALKALINE PHOSPHATASE 87 U/L (40-136); BILIRUBIN,TOTAL 0.7 MG/DL (0.1-1.0); BUN/CREATININE RATIO 20; CARBON DIOXIDE 26 MMOL/L (21-32); CHLORIDE 101 MMOL/L (98-107); CREATININE SERUM 0.74 MG/DL (0.60-1.30); GFR ESTIMATED > 60; GLUCOSE 92 MG/DL (70-105); MAGNESIUM 2.1 MG/DL (1.8-2.4); POTASSIUM 3.6 MMOL/L (3.6-5.0); SODIUM 139 MMOL/L (135-145); TOTAL PROTEIN 7.1 GM/DL (6.4-8.2)
[2018-07-31 09:15] LABS: BASOPHILS % (AUTO) 1 % (0-10); EOSINOPHILS # (AUTO) 0.1 10^3/uL (0.0-0.3); EOSINOPHILS % (AUTO) 1 % (0-10); HEMATOCRIT 34 % (35-52); HEMOGLOBIN 11.5 G/DL (11.5-16.0); LYMPHOCYTES # (AUTO) 0.7 X 10^3 (1.0-4.0); LYMPHOCYTES % (AUTO) 12 % (12-44); MEAN CORPUSCULAR HEMOGLOBIN 32 PG (25-34); MEAN CORPUSCULAR HGB CONC 34 G/DL (32-36); MEAN CORPUSCULAR VOLUME 95 FL (80-99); MEAN PLATELET VOLUME 9.4 FL (7.4-10.4); MONOCYTES # (AUTO) 0.6 X 10^3 (0.0-1.0); MONOCYTES % (AUTO) 10 % (0-12); NEUTROPHILS # (AUTO) 4.3 X 10^3 (1.8-7.8); NEUTROPHILS % (AUTO) 77 % (42-75); PLATELET COUNT 159 10^3/uL (130-400); RED CELL DISTRIBUTION WIDTH 14.3 % (10.0-14.5); WHITE BLOOD COUNT 5.6 10^3/uL (4.3-11.0)
[2018-07-31 09:32] LABS: BUN/CREATININE RATIO 22; CALCIUM 8.8 MG/DL (8.5-10.1); CARBON DIOXIDE 26 MMOL/L (21-32); CHLORIDE 99 MMOL/L (98-107); CREATININE SERUM 0.74 MG/DL (0.60-1.30); GFR ESTIMATED > 60; GLUCOSE 155 MG/DL (70-105); POTASSIUM 3.5 MMOL/L (3.6-5.0); SODIUM 135 MMOL/L (135-145)
[2018-08-07 09:11] LABS: BASOPHILS % (AUTO) 0 % (0-10); EOSINOPHILS # (AUTO) 0.1 10^3/uL (0.0-0.3); EOSINOPHILS % (AUTO) 1 % (0-10); HEMATOCRIT 35 % (35-52); HEMOGLOBIN 11.7 G/DL (11.5-16.0); LYMPHOCYTES # (AUTO) 0.7 X 10^3 (1.0-4.0); LYMPHOCYTES % (AUTO) 9 % (12-44); MEAN CORPUSCULAR HEMOGLOBIN 32 PG (25-34); MEAN CORPUSCULAR HGB CONC 34 G/DL (32-36); MEAN CORPUSCULAR VOLUME 95 FL (80-99); MEAN PLATELET VOLUME 9.1 FL (7.4-10.4); MONOCYTES # (AUTO) 0.5 X 10^3 (0.0-1.0); MONOCYTES % (AUTO) 7 % (0-12); NEUTROPHILS # (AUTO) 6.2 X 10^3 (1.8-7.8); NEUTROPHILS % (AUTO) 83 % (42-75); PLATELET COUNT 199 10^3/uL (130-400); RED CELL DISTRIBUTION WIDTH 14.8 % (10.0-14.5); WHITE BLOOD COUNT 7.5 10^3/uL (4.3-11.0)
[2018-08-07 09:28] LABS: BUN/CREATININE RATIO 24; CALCIUM 8.8 MG/DL (8.5-10.1); CARBON DIOXIDE 28 MMOL/L (21-32); CHLORIDE 100 MMOL/L (98-107); CREATININE SERUM 0.76 MG/DL (0.60-1.30); GFR ESTIMATED > 60; GLUCOSE 88 MG/DL (70-105); MAGNESIUM 2.5 MG/DL (1.8-2.4); POTASSIUM 3.8 MMOL/L (3.6-5.0); SODIUM 137 MMOL/L (135-145)
[2018-08-14 08:46] LABS: BASOPHILS % (AUTO) 1 % (0-10); EOSINOPHILS # (AUTO) 0.1 10^3/uL (0.0-0.3); EOSINOPHILS % (AUTO) 1 % (0-10); HEMATOCRIT 35 % (35-52); HEMOGLOBIN 11.7 G/DL (11.5-16.0); LYMPHOCYTES # (AUTO) 0.6 X 10^3 (1.0-4.0); LYMPHOCYTES % (AUTO) 11 % (12-44); MEAN CORPUSCULAR HEMOGLOBIN 31 PG (25-34); MEAN CORPUSCULAR HGB CONC 33 G/DL (32-36); MEAN CORPUSCULAR VOLUME 95 FL (80-99); MEAN PLATELET VOLUME 9.3 FL (7.4-10.4); MONOCYTES # (AUTO) 0.5 X 10^3 (0.0-1.0); MONOCYTES % (AUTO) 9 % (0-12); NEUTROPHILS # (AUTO) 4.4 X 10^3 (1.8-7.8); NEUTROPHILS % (AUTO) 78 % (42-75); PLATELET COUNT 172 10^3/uL (130-400); RED CELL DISTRIBUTION WIDTH 14.5 % (10.0-14.5); WHITE BLOOD COUNT 5.6 10^3/uL (4.3-11.0)
[2018-08-14 09:05] LABS: BUN/CREATININE RATIO 21; CALCIUM 9.1 MG/DL (8.5-10.1); CARBON DIOXIDE 28 MMOL/L (21-32); CHLORIDE 98 MMOL/L (98-107); CREATININE SERUM 0.78 MG/DL (0.60-1.30); GFR ESTIMATED > 60; GLUCOSE 107 MG/DL (70-105); MAGNESIUM 2.1 MG/DL (1.8-2.4); POTASSIUM 3.9 MMOL/L (3.6-5.0); SODIUM 135 MMOL/L (135-145)
[2018-08-21 09:02] LABS: BASOPHILS % (AUTO) 0 % (0-10); EOSINOPHILS # (AUTO) 0.1 10^3/uL (0.0-0.3); EOSINOPHILS % (AUTO) 1 % (0-10); HEMATOCRIT 36 % (35-52); HEMOGLOBIN 11.9 G/DL (11.5-16.0); LYMPHOCYTES # (AUTO) 0.9 X 10^3 (1.0-4.0); LYMPHOCYTES % (AUTO) 12 % (12-44); MEAN CORPUSCULAR HEMOGLOBIN 32 PG (25-34); MEAN CORPUSCULAR HGB CONC 34 G/DL (32-36); MEAN CORPUSCULAR VOLUME 94 FL (80-99); MEAN PLATELET VOLUME 8.7 FL (7.4-10.4); MONOCYTES # (AUTO) 0.8 X 10^3 (0.0-1.0); MONOCYTES % (AUTO) 12 % (0-12); NEUTROPHILS # (AUTO) 5.2 X 10^3 (1.8-7.8); NEUTROPHILS % (AUTO) 74 % (42-75); PLATELET COUNT 161 10^3/uL (130-400); RED CELL DISTRIBUTION WIDTH 14.5 % (10.0-14.5)
[2018-08-21 09:27] LABS: ALANINE AMINOTRANSFERASE 9 U/L (0-55); ALKALINE PHOSPHATASE 98 U/L (40-136); BILIRUBIN,TOTAL 0.6 MG/DL (0.1-1.0); BUN/CREATININE RATIO 24; CALCIUM 9.3 MG/DL (8.5-10.1); CARBON DIOXIDE 28 MMOL/L (21-32); CHLORIDE 99 MMOL/L (98-107); CREATININE SERUM 0.72 MG/DL (0.60-1.30); GFR ESTIMATED > 60; GLUCOSE 99 MG/DL (70-105); MAGNESIUM 2.2 MG/DL (1.8-2.4); POTASSIUM 3.4 MMOL/L (3.6-5.0); SODIUM 136 MMOL/L (135-145); TOTAL PROTEIN 7.3 GM/DL (6.4-8.2)
--- NOTE | 2018-08-21 11:14 | Diagnostic Imaging Report ---
INDICATION: Lung cancer. COMPARISON: 07/17/2018. FINDINGS: Curvilinear parenchymal density suprahilar right upper lobe and some distortion or fullness at the level of the right pulmonary maricarmen is unchanged. Background COPD unchanged. Elevation of the right diaphragm and right lung volume loss unchanged. Central venous catheter at the SVC unchanged. IMPRESSION: No interval change in the appearance of the chest. Dictated by: Dictated on workstation # [id number]
[2018-08-28 09:12] LABS: BASOPHILS % (AUTO) 1 % (0-10); EOSINOPHILS # (AUTO) 0.1 10^3/uL (0.0-0.3); EOSINOPHILS % (AUTO) 1 % (0-10); HEMATOCRIT 35 % (35-52); HEMOGLOBIN 11.5 G/DL (11.5-16.0); LYMPHOCYTES # (AUTO) 0.7 X 10^3 (1.0-4.0); LYMPHOCYTES % (AUTO) 10 % (12-44); MEAN CORPUSCULAR HEMOGLOBIN 31 PG (25-34); MEAN CORPUSCULAR HGB CONC 33 G/DL (32-36); MEAN CORPUSCULAR VOLUME 94 FL (80-99); MEAN PLATELET VOLUME 9.4 FL (7.4-10.4); MONOCYTES # (AUTO) 0.5 X 10^3 (0.0-1.0); MONOCYTES % (AUTO) 7 % (0-12); NEUTROPHILS # (AUTO) 5.8 X 10^3 (1.8-7.8); NEUTROPHILS % (AUTO) 81 % (42-75); PLATELET COUNT 173 10^3/uL (130-400); RED CELL DISTRIBUTION WIDTH 13.7 % (10.0-14.5); WHITE BLOOD COUNT 7.2 10^3/uL (4.3-11.0)
[2018-08-28 09:32] LABS: BUN/CREATININE RATIO 25; CARBON DIOXIDE 27 MMOL/L (21-32); CHLORIDE 98 MMOL/L (98-107); CREATININE SERUM 0.73 MG/DL (0.60-1.30); GFR ESTIMATED > 60; GLUCOSE 81 MG/DL (70-105); MAGNESIUM 2.4 MG/DL (1.8-2.4); POTASSIUM 3.6 MMOL/L (3.6-5.0); SODIUM 134 MMOL/L (135-145)
[2018-09-04 09:29] LABS: BASOPHILS % (AUTO) 0 % (0-10); EOSINOPHILS # (AUTO) 0.2 10^3/uL (0.0-0.3); EOSINOPHILS % (AUTO) 2 % (0-10); HEMATOCRIT 33 % (35-52); LYMPHOCYTES # (AUTO) 0.7 X 10^3 (1.0-4.0); LYMPHOCYTES % (AUTO) 11 % (12-44); MEAN CORPUSCULAR HEMOGLOBIN 32 PG (25-34); MEAN CORPUSCULAR HGB CONC 34 G/DL (32-36); MEAN CORPUSCULAR VOLUME 94 FL (80-99); MEAN PLATELET VOLUME 9.2 FL (7.4-10.4); MONOCYTES # (AUTO) 0.6 X 10^3 (0.0-1.0); MONOCYTES % (AUTO) 9 % (0-12); NEUTROPHILS # (AUTO) 5.1 X 10^3 (1.8-7.8); NEUTROPHILS % (AUTO) 77 % (42-75); PLATELET COUNT 201 10^3/uL (130-400); RED CELL DISTRIBUTION WIDTH 14.3 % (10.0-14.5); WHITE BLOOD COUNT 6.6 10^3/uL (4.3-11.0)
[2018-09-04 09:51] LABS: ALANINE AMINOTRANSFERASE 7 U/L (0-55); ALBUMIN 3.8 GM/DL (3.2-4.5); ALKALINE PHOSPHATASE 83 U/L (40-136); BILIRUBIN,TOTAL 0.4 MG/DL (0.1-1.0); BUN/CREATININE RATIO 20; CALCIUM 8.8 MG/DL (8.5-10.1); CARBON DIOXIDE 27 MMOL/L (21-32); CHLORIDE 98 MMOL/L (98-107); CREATININE SERUM 0.69 MG/DL (0.60-1.30); GFR ESTIMATED > 60; GLUCOSE 120 MG/DL (70-105); MAGNESIUM 2.1 MG/DL (1.8-2.4); POTASSIUM 3.7 MMOL/L (3.6-5.0); SODIUM 135 MMOL/L (135-145); TOTAL PROTEIN 7.1 GM/DL (6.4-8.2)
[2018-09-11 09:27] LABS: BASOPHILS % (AUTO) 1 % (0-10); EOSINOPHILS # (AUTO) 0.1 10^3/uL (0.0-0.3); EOSINOPHILS % (AUTO) 2 % (0-10); HEMATOCRIT 37 % (35-52); HEMOGLOBIN 12.2 G/DL (11.5-16.0); LYMPHOCYTES # (AUTO) 0.6 X 10^3 (1.0-4.0); LYMPHOCYTES % (AUTO) 15 % (12-44); MEAN CORPUSCULAR HEMOGLOBIN 31 PG (25-34); MEAN CORPUSCULAR HGB CONC 33 G/DL (32-36); MEAN CORPUSCULAR VOLUME 95 FL (80-99); MEAN PLATELET VOLUME 9.1 FL (7.4-10.4); MONOCYTES # (AUTO) 0.6 X 10^3 (0.0-1.0); MONOCYTES % (AUTO) 15 % (0-12); NEUTROPHILS # (AUTO) 2.6 X 10^3 (1.8-7.8); NEUTROPHILS % (AUTO) 68 % (42-75); PLATELET COUNT 222 10^3/uL (130-400); RED CELL DISTRIBUTION WIDTH 14.4 % (10.0-14.5); WHITE BLOOD COUNT 3.8 10^3/uL (4.3-11.0)
[2018-09-11 09:48] LABS: BUN/CREATININE RATIO 23; CALCIUM 9.1 MG/DL (8.5-10.1); CARBON DIOXIDE 28 MMOL/L (21-32); CHLORIDE 96 MMOL/L (98-107); GFR ESTIMATED > 60; GLUCOSE 145 MG/DL (70-105); MAGNESIUM 2.8 MG/DL (1.8-2.4); POTASSIUM 3.8 MMOL/L (3.6-5.0); SODIUM 134 MMOL/L (135-145)
[2018-09-18 09:10] LABS: BASOPHILS % (AUTO) 1 % (0-10); EOSINOPHILS # (AUTO) 0.1 10^3/uL (0.0-0.3); EOSINOPHILS % (AUTO) 2 % (0-10); HEMATOCRIT 35 % (35-52); HEMOGLOBIN 11.8 G/DL (11.5-16.0); LYMPHOCYTES # (AUTO) 0.8 X 10^3 (1.0-4.0); LYMPHOCYTES % (AUTO) 18 % (12-44); MEAN CORPUSCULAR HEMOGLOBIN 32 PG (25-34); MEAN CORPUSCULAR HGB CONC 33 G/DL (32-36); MEAN CORPUSCULAR VOLUME 94 FL (80-99); MEAN PLATELET VOLUME 8.9 FL (7.4-10.4); MONOCYTES # (AUTO) 0.5 X 10^3 (0.0-1.0); MONOCYTES % (AUTO) 10 % (0-12); NEUTROPHILS # (AUTO) 3.2 X 10^3 (1.8-7.8); NEUTROPHILS % (AUTO) 69 % (42-75); PLATELET COUNT 154 10^3/uL (130-400); RED CELL DISTRIBUTION WIDTH 13.8 % (10.0-14.5); WHITE BLOOD COUNT 4.6 10^3/uL (4.3-11.0)
[2018-09-18 09:35] LABS: ALANINE AMINOTRANSFERASE 9 U/L (0-55); ALBUMIN 3.9 GM/DL (3.2-4.5); ALKALINE PHOSPHATASE 88 U/L (40-136); BILIRUBIN,TOTAL 0.4 MG/DL (0.1-1.0); BUN/CREATININE RATIO 23; CALCIUM 8.7 MG/DL (8.5-10.1); CARBON DIOXIDE 27 MMOL/L (21-32); CHLORIDE 99 MMOL/L (98-107); CREATININE SERUM 0.79 MG/DL (0.60-1.30); GFR ESTIMATED > 60; GLUCOSE 153 MG/DL (70-105); MAGNESIUM 2.1 MG/DL (1.8-2.4); POTASSIUM 3.1 MMOL/L (3.6-5.0); SODIUM 137 MMOL/L (135-145); TOTAL PROTEIN 7.2 GM/DL (6.4-8.2)
[~2018-09-25] VITALS: Ht 160 cm; Wt 58.5 kg
[~2018-09-25 08:37] MED LIST changes: -BARIUM SUSPENSION 2.1% (VANILLA SILQ) 450 ML PO ONE; +DEXAMETHASONE INJECTION 10 MG in NS (IVPB) CANCER CENTER 50 ML IV ONE; +FAMOTIDINE 20MG/2ML IV (CANCER CTR) IV SCH; -HOLD METFORMIN - RECEIVED CONTRAST 20 ML VIAL IV SCH; -IOHEXOL 350 MG/ML 100 ML (OMNIPAQUE 350) VIAL IV ONE; +NS IV 1000 ML (CANCER CTR) IV SCH; +NS IV 500 ML (CANCER CENTER) 500 ML ONE; +ONDANSETRON MDV (CANCER CENTER 16 MG, DEXAMETHASONE INJECTION 10 MG in NS (IVPB) CANCER... IV SCH; +PACLitaxel PROTEIN 160 MG in EMPTY IV BAG (PVC) CANCER CTR 1 EA IV SCH; +PALONOSETRON HCL 0.25 MG, DEXAMETHASONE INJECTION 10 MG in NS (IVPB) CANCER CENTER 50 ML IV SCH; +diphenhydrAMINE 25 MG TAB (BENADRYL) CANCER CENTER PO SCH; +diphenhydrAMINE 50 MG/ML INJ (CANCER CENTER) ONE
[2018-09-25 08:52] LABS: BASOPHILS % (AUTO) 1 % (0-10); EOSINOPHILS # (AUTO) 0.1 10^3/uL (0.0-0.3); EOSINOPHILS % (AUTO) 1 % (0-10); HEMATOCRIT 36 % (35-52); HEMOGLOBIN 12.1 G/DL (11.5-16.0); LYMPHOCYTES # (AUTO) 0.7 X 10^3 (1.0-4.0); LYMPHOCYTES % (AUTO) 12 % (12-44); MEAN CORPUSCULAR HEMOGLOBIN 31 PG (25-34); MEAN CORPUSCULAR HGB CONC 34 G/DL (32-36); MEAN CORPUSCULAR VOLUME 94 FL (80-99); MEAN PLATELET VOLUME 8.7 FL (7.4-10.4); MONOCYTES # (AUTO) 0.7 X 10^3 (0.0-1.0); MONOCYTES % (AUTO) 12 % (0-12); NEUTROPHILS # (AUTO) 4.5 X 10^3 (1.8-7.8); NEUTROPHILS % (AUTO) 75 % (42-75); PLATELET COUNT 182 10^3/uL (130-400); WHITE BLOOD COUNT 6.1 10^3/uL (4.3-11.0)
[2018-09-25 09:09] LABS: BUN/CREATININE RATIO 24; CALCIUM 9.1 MG/DL (8.5-10.1); CARBON DIOXIDE 24 MMOL/L (21-32); CHLORIDE 100 MMOL/L (98-107); CREATININE SERUM 0.76 MG/DL (0.60-1.30); GFR ESTIMATED > 60; GLUCOSE 80 MG/DL (70-105); POTASSIUM 3.3 MMOL/L (3.6-5.0); SODIUM 137 MMOL/L (135-145)
== END 2018-10-01 | disposition home or self-care (01) ==
LOC: ONC 08:37
PROVIDERS: ATTEND Internal Medicine Hematology & Oncology
DX: Z51.11 Encounter for antineoplastic chemotherapy (principal); C34.11 Malignant neoplasm of upper lobe, right bronchus or lung; C79.51 Secondary malignant neoplasm of bone; K76.9 Liver disease, unspecified; C78.01 Secondary malignant neoplasm of right lung; C78.02 Secondary malignant neoplasm of left lung; E05.00 Thyrotoxicosis with diffuse goiter without thyrotoxic crisis or storm; I25.10 Atherosclerotic heart disease of native coronary artery without angina pectoris; I27.20 Pulmonary hypertension, unspecified; E80.6 Other disorders of bilirubin metabolism; Z86.711 Personal history of pulmonary embolism; Z82.49 Family history of ischemic heart disease and other diseases of the circulatory system; Z79.01 Long term (current) use of anticoagulants; Z79.899 Other long term (current) drug therapy
CPT/HCPCS: 36415; 36591; 71046; 80048; 80053; 83735; 84443; 85025; 87804; 93005; 96375; 96376; 96413; 96417; 99213

== ENCOUNTER → 2018-10-23 | Outpatient (CLI) | payer MEDICAID ==
[~2018-10-23] MED LIST changes: -DEXAMETHASONE INJECTION 10 MG in NS (IVPB) CANCER CENTER 50 ML IV ONE; -FAMOTIDINE 20MG/2ML IV (CANCER CTR) IV SCH; -NS IV 1000 ML (CANCER CTR) IV SCH; -NS IV 500 ML (CANCER CENTER) 500 ML ONE; -ONDANSETRON MDV (CANCER CENTER 16 MG, DEXAMETHASONE INJECTION 10 MG in NS (IVPB) CANCER... IV SCH; -PACLitaxel PROTEIN 160 MG in EMPTY IV BAG (PVC) CANCER CTR 1 EA IV SCH; -PALONOSETRON HCL 0.25 MG, DEXAMETHASONE INJECTION 10 MG in NS (IVPB) CANCER CENTER 50 ML IV SCH; -diphenhydrAMINE 25 MG TAB (BENADRYL) CANCER CENTER PO SCH; -diphenhydrAMINE 50 MG/ML INJ (CANCER CENTER) ONE
[2018-10-23 11:16] LABS: FREE T4 (FREE THYROXINE) 1.31 NG/DL (0.70-1.48)
== END ==
LOC: LAB 08:45
PROVIDERS: ATTEND Internal Medicine Endocrinology, Diabetes & Metabolism
DX: E05.00 Thyrotoxicosis with diffuse goiter without thyrotoxic crisis or storm (principal)
CPT/HCPCS: 36415; 84439; 84443

== ENCOUNTER 2018-12-26 08:35 | Outpatient (RCR) | payer MEDICAID ==
[2018-10-02 08:45] LABS: BASOPHILS % (AUTO) 0 % (0-10); EOSINOPHILS # (AUTO) 0.2 10^3/uL (0.0-0.3); EOSINOPHILS % (AUTO) 4 % (0-10); HEMATOCRIT 34 % (35-52); HEMOGLOBIN 11.4 G/DL (11.5-16.0); LYMPHOCYTES # (AUTO) 0.6 X 10^3 (1.0-4.0); LYMPHOCYTES % (AUTO) 11 % (12-44); MEAN CORPUSCULAR HEMOGLOBIN 31 PG (25-34); MEAN CORPUSCULAR HGB CONC 33 G/DL (32-36); MEAN CORPUSCULAR VOLUME 94 FL (80-99); MONOCYTES # (AUTO) 0.3 X 10^3 (0.0-1.0); MONOCYTES % (AUTO) 5 % (0-12); NEUTROPHILS # (AUTO) 4.3 X 10^3 (1.8-7.8); NEUTROPHILS % (AUTO) 80 % (42-75); PLATELET COUNT 202 10^3/uL (130-400); RED CELL DISTRIBUTION WIDTH 13.6 % (10.0-14.5); WHITE BLOOD COUNT 5.4 10^3/uL (4.3-11.0)
[2018-10-02 09:03] LABS: BUN/CREATININE RATIO 18; CALCIUM 9.1 MG/DL (8.5-10.1); CARBON DIOXIDE 26 MMOL/L (21-32); CHLORIDE 99 MMOL/L (98-107); CREATININE SERUM 0.82 MG/DL (0.60-1.30); GFR ESTIMATED > 60; GLUCOSE 175 MG/DL (70-105); POTASSIUM 3.5 MMOL/L (3.6-5.0); SODIUM 134 MMOL/L (135-145)
[2018-10-09 08:53] LABS: BASOPHILS % (AUTO) 0 % (0-10); EOSINOPHILS # (AUTO) 0.2 10^3/uL (0.0-0.3); EOSINOPHILS % (AUTO) 2 % (0-10); HEMATOCRIT 33 % (35-52); HEMOGLOBIN 11.2 G/DL (11.5-16.0); LYMPHOCYTES # (AUTO) 0.6 X 10^3 (1.0-4.0); LYMPHOCYTES % (AUTO) 8 % (12-44); MEAN CORPUSCULAR HGB CONC 34 G/DL (32-36); MEAN CORPUSCULAR VOLUME 94 FL (80-99); MEAN PLATELET VOLUME 8.6 FL (7.4-10.4); MONOCYTES # (AUTO) 0.3 X 10^3 (0.0-1.0); MONOCYTES % (AUTO) 5 % (0-12); NEUTROPHILS # (AUTO) 5.7 X 10^3 (1.8-7.8); NEUTROPHILS % (AUTO) 85 % (42-75); PLATELET COUNT 179 10^3/uL (130-400); RED CELL DISTRIBUTION WIDTH 13.5 % (10.0-14.5); WHITE BLOOD COUNT 6.8 10^3/uL (4.3-11.0)
[2018-10-09 08:54] LABS: MEAN CORPUSCULAR HEMOGLOBIN 31 PG (25-34)
[2018-10-09 09:08] LABS: BUN/CREATININE RATIO 23; CALCIUM 8.8 MG/DL (8.5-10.1); CARBON DIOXIDE 26 MMOL/L (21-32); CHLORIDE 99 MMOL/L (98-107); CREATININE SERUM 0.75 MG/DL (0.60-1.30); GFR ESTIMATED > 60; GLUCOSE 167 MG/DL (70-105); POTASSIUM 3.1 MMOL/L (3.6-5.0); SODIUM 134 MMOL/L (135-145)
[2018-10-16 10:03] LABS: BASOPHILS % (AUTO) 1 % (0-10); EOSINOPHILS # (AUTO) 0.1 10^3/uL (0.0-0.3); EOSINOPHILS % (AUTO) 2 % (0-10); HEMATOCRIT 34 % (35-52); HEMOGLOBIN 11.1 G/DL (11.5-16.0); LYMPHOCYTES # (AUTO) 0.7 X 10^3 (1.0-4.0); LYMPHOCYTES % (AUTO) 26 % (12-44); MEAN CORPUSCULAR HEMOGLOBIN 31 PG (25-34); MEAN CORPUSCULAR HGB CONC 33 G/DL (32-36); MEAN CORPUSCULAR VOLUME 93 FL (80-99); MEAN PLATELET VOLUME 8.8 FL (7.4-10.4); MONOCYTES # (AUTO) 0.2 X 10^3 (0.0-1.0); MONOCYTES % (AUTO) 6 % (0-12); NEUTROPHILS # (AUTO) 1.9 X 10^3 (1.8-7.8); NEUTROPHILS % (AUTO) 65 % (42-75); PLATELET COUNT 174 10^3/uL (130-400); RED CELL DISTRIBUTION WIDTH 13.5 % (10.0-14.5); WHITE BLOOD COUNT 2.9 10^3/uL (4.3-11.0)
[2018-10-16 10:23] LABS: BUN/CREATININE RATIO 22; CALCIUM 9.1 MG/DL (8.5-10.1); CARBON DIOXIDE 30 MMOL/L (21-32); CHLORIDE 100 MMOL/L (98-107); CREATININE SERUM 0.74 MG/DL (0.60-1.30); GFR ESTIMATED > 60; GLUCOSE 79 MG/DL (70-105); POTASSIUM 4.6 MMOL/L (3.6-5.0); SODIUM 137 MMOL/L (135-145)
--- NOTE | 2018-10-23 09:16 | Diagnostic Imaging Report ---
INDICATION: Metastatic lung cancer. Comparison made with prior examination 08/21/2018. FINDINGS: The heart size is normal. There is elevation of right hemidiaphragm. There is no pleural effusion or pneumothorax. Mediastinum is unremarkable. There is venous congestion. There is unchanged bilateral perihilar scarring. There is no lobar pneumonia. Infuse Port-A-Cath overlies right hemithorax. IMPRESSION: No significant interval change. Dictated by: Dictated on workstation # [id number]
[2018-10-23 09:21] LABS: BASOPHILS # (AUTO) 0.1 10^3/uL (0.0-0.1); BASOPHILS % (AUTO) 2 % (0-10); EOSINOPHILS % (AUTO) 1 % (0-10); HEMATOCRIT 35 % (35-52); HEMOGLOBIN 11.5 G/DL (11.5-16.0); LYMPHOCYTES # (AUTO) 0.7 X 10^3 (1.0-4.0); LYMPHOCYTES % (AUTO) 25 % (12-44); MEAN CORPUSCULAR HEMOGLOBIN 31 PG (25-34); MEAN CORPUSCULAR HGB CONC 33 G/DL (32-36); MEAN CORPUSCULAR VOLUME 93 FL (80-99); MEAN PLATELET VOLUME 8.7 FL (7.4-10.4); MONOCYTES # (AUTO) 0.6 X 10^3 (0.0-1.0); MONOCYTES % (AUTO) 21 % (0-12); NEUTROPHILS # (AUTO) 1.4 X 10^3 (1.8-7.8); NEUTROPHILS % (AUTO) 50 % (42-75); PLATELET COUNT 157 10^3/uL (130-400); RED CELL DISTRIBUTION WIDTH 13.6 % (10.0-14.5); WHITE BLOOD COUNT 2.8 10^3/uL (4.3-11.0)
[2018-10-23 09:44] LABS: ALANINE AMINOTRANSFERASE 9 U/L (0-55); ALBUMIN 4.2 GM/DL (3.2-4.5); ALKALINE PHOSPHATASE 84 U/L (40-136); BUN/CREATININE RATIO 24; CALCIUM 8.9 MG/DL (8.5-10.1); CARBON DIOXIDE 26 MMOL/L (21-32); CHLORIDE 100 MMOL/L (98-107); CREATININE SERUM 0.75 MG/DL (0.60-1.30); GFR ESTIMATED > 60; GLUCOSE 80 MG/DL (70-105); MAGNESIUM 2.1 MG/DL (1.8-2.4); POTASSIUM 3.3 MMOL/L (3.6-5.0); SODIUM 136 MMOL/L (135-145)
[2018-10-23 10:24] LABS: BILIRUBIN,TOTAL 0.8 MG/DL (0.1-1.0)
[2018-10-30 09:01] LABS: BASOPHILS % (AUTO) 1 % (0-10); EOSINOPHILS # (AUTO) 0.1 10^3/uL (0.0-0.3); EOSINOPHILS % (AUTO) 1 % (0-10); HEMATOCRIT 33 % (35-52); LYMPHOCYTES # (AUTO) 0.7 X 10^3 (1.0-4.0); LYMPHOCYTES % (AUTO) 18 % (12-44); MEAN CORPUSCULAR HEMOGLOBIN 31 PG (25-34); MEAN CORPUSCULAR HGB CONC 33 G/DL (32-36); MEAN CORPUSCULAR VOLUME 93 FL (80-99); MEAN PLATELET VOLUME 9.3 FL (7.4-10.4); MONOCYTES # (AUTO) 0.3 X 10^3 (0.0-1.0); MONOCYTES % (AUTO) 7 % (0-12); NEUTROPHILS # (AUTO) 2.7 X 10^3 (1.8-7.8); NEUTROPHILS % (AUTO) 73 % (42-75); PLATELET COUNT 149 10^3/uL (130-400); RED CELL DISTRIBUTION WIDTH 13.3 % (10.0-14.5); WHITE BLOOD COUNT 3.7 10^3/uL (4.3-11.0)
[2018-10-30 09:26] LABS: BUN/CREATININE RATIO 20; CALCIUM 8.8 MG/DL (8.5-10.1); CARBON DIOXIDE 26 MMOL/L (21-32); CHLORIDE 103 MMOL/L (98-107); CREATININE SERUM 0.74 MG/DL (0.60-1.30); GFR ESTIMATED > 60; GLUCOSE 122 MG/DL (70-105); POTASSIUM 3.5 MMOL/L (3.6-5.0); SODIUM 137 MMOL/L (135-145)
[2018-11-06 09:02] LABS: BASOPHILS % (AUTO) 1 % (0-10); EOSINOPHILS # (AUTO) 0.1 10^3/uL (0.0-0.3); EOSINOPHILS % (AUTO) 2 % (0-10); HEMATOCRIT 33 % (35-52); HEMOGLOBIN 10.9 G/DL (11.5-16.0); LYMPHOCYTES # (AUTO) 0.7 X 10^3 (1.0-4.0); LYMPHOCYTES % (AUTO) 27 % (12-44); MEAN CORPUSCULAR HEMOGLOBIN 31 PG (25-34); MEAN CORPUSCULAR HGB CONC 34 G/DL (32-36); MEAN CORPUSCULAR VOLUME 93 FL (80-99); MEAN PLATELET VOLUME 9.3 FL (7.4-10.4); MONOCYTES # (AUTO) 0.2 X 10^3 (0.0-1.0); MONOCYTES % (AUTO) 6 % (0-12); NEUTROPHILS # (AUTO) 1.6 X 10^3 (1.8-7.8); NEUTROPHILS % (AUTO) 64 % (42-75); PLATELET COUNT 175 10^3/uL (130-400); RED CELL DISTRIBUTION WIDTH 13.6 % (10.0-14.5); WHITE BLOOD COUNT 2.5 10^3/uL (4.3-11.0)
[2018-11-06 09:16] LABS: BUN/CREATININE RATIO 23; CALCIUM 8.8 MG/DL (8.5-10.1); CARBON DIOXIDE 20 MMOL/L (21-32); CHLORIDE 105 MMOL/L (98-107); CREATININE SERUM 0.75 MG/DL (0.60-1.30); GFR ESTIMATED > 60; GLUCOSE 112 MG/DL (70-105); POTASSIUM 3.6 MMOL/L (3.6-5.0); SODIUM 139 MMOL/L (135-145)
[2018-11-13 08:54] LABS: BASOPHILS % (AUTO) 1 % (0-10); EOSINOPHILS % (AUTO) 1 % (0-10); HEMATOCRIT 34 % (35-52); HEMOGLOBIN 11.3 G/DL (11.5-16.0); LYMPHOCYTES # (AUTO) 0.7 X 10^3 (1.0-4.0); LYMPHOCYTES % (AUTO) 27 % (12-44); MEAN CORPUSCULAR HEMOGLOBIN 31 PG (25-34); MEAN CORPUSCULAR HGB CONC 33 G/DL (32-36); MEAN CORPUSCULAR VOLUME 93 FL (80-99); MEAN PLATELET VOLUME 9.5 FL (7.4-10.4); MONOCYTES # (AUTO) 0.2 X 10^3 (0.0-1.0); MONOCYTES % (AUTO) 7 % (0-12); NEUTROPHILS # (AUTO) 1.7 X 10^3 (1.8-7.8); NEUTROPHILS % (AUTO) 65 % (42-75); PLATELET COUNT 176 10^3/uL (130-400); RED CELL DISTRIBUTION WIDTH 13.7 % (10.0-14.5); WHITE BLOOD COUNT 2.6 10^3/uL (4.3-11.0)
[2018-11-13 09:17] LABS: BUN/CREATININE RATIO 16; CALCIUM 8.9 MG/DL (8.5-10.1); CARBON DIOXIDE 23 MMOL/L (21-32); CHLORIDE 102 MMOL/L (98-107); CREATININE SERUM 0.79 MG/DL (0.60-1.30); GFR ESTIMATED > 60; GLUCOSE 122 MG/DL (70-105); POTASSIUM 4.3 MMOL/L (3.6-5.0); SODIUM 136 MMOL/L (135-145)
[2018-11-21 08:55] LABS: BASOPHILS % (AUTO) 1 % (0-10); EOSINOPHILS % (AUTO) 1 % (0-10); HEMATOCRIT 34 % (35-52); HEMOGLOBIN 11.3 G/DL (11.5-16.0); LYMPHOCYTES # (AUTO) 0.8 X 10^3 (1.0-4.0); LYMPHOCYTES % (AUTO) 16 % (12-44); MEAN CORPUSCULAR HEMOGLOBIN 31 PG (25-34); MEAN CORPUSCULAR HGB CONC 33 G/DL (32-36); MEAN CORPUSCULAR VOLUME 92 FL (80-99); MEAN PLATELET VOLUME 9.2 FL (7.4-10.4); MONOCYTES # (AUTO) 0.7 X 10^3 (0.0-1.0); MONOCYTES % (AUTO) 14 % (0-12); NEUTROPHILS # (AUTO) 3.3 X 10^3 (1.8-7.8); NEUTROPHILS % (AUTO) 69 % (42-75); PLATELET COUNT 143 10^3/uL (130-400); WHITE BLOOD COUNT 4.8 10^3/uL (4.3-11.0)
[2018-11-21 09:18] LABS: ALANINE AMINOTRANSFERASE 9 U/L (0-55); ALKALINE PHOSPHATASE 71 U/L (40-136); BILIRUBIN,TOTAL 0.6 MG/DL (0.1-1.0); BUN/CREATININE RATIO 19; CALCIUM 8.7 MG/DL (8.5-10.1); CARBON DIOXIDE 26 MMOL/L (21-32); CHLORIDE 102 MMOL/L (98-107); CREATININE SERUM 0.74 MG/DL (0.60-1.30); GFR ESTIMATED > 60; GLUCOSE 144 MG/DL (70-105); POTASSIUM 3.5 MMOL/L (3.6-5.0); SODIUM 135 MMOL/L (135-145); TOTAL PROTEIN 6.6 GM/DL (6.4-8.2)
--- NOTE | 2018-11-21 10:15 | Diagnostic Imaging Report ---
INDICATION: History of metastatic lung cancer. TECHNIQUE: Two view chest at 8:58 AM CORRELATION STUDY: 10/23/2018 FINDINGS: Right IJ Fjwxib-w-Qgiy catheter tip over the low SVC stable. Heart size and mediastinum unchanged. Unchanged elevated right diaphragm with right lung volume loss. Lung parenchyma distortion and scattered pulmonary parenchymal densities remain. Most pronounced involving the right perihilar and upper lobe distribution. Overall lung ruiz generally stable to perhaps slight improved aeration through the lung ruiz. No definitive new infiltrate. Visualized osseous structures are unremarkable. IMPRESSION: 1. Scattered pulmonary parenchymal densities superimposed on a chronic lung disease again demonstrated. Findings most pronounced in perihilar and right upper lobe distribution. Findings, however, are stable to slightly improved. No new areas of infiltrate. Dictated by: Dictated on workstation # [id number]
[2018-11-27 09:02] LABS: BASOPHILS % (AUTO) 1 % (0-10); EOSINOPHILS # (AUTO) 0.1 10^3/uL (0.0-0.3); EOSINOPHILS % (AUTO) 2 % (0-10); HEMATOCRIT 34 % (35-52); HEMOGLOBIN 11.4 G/DL (11.5-16.0); LYMPHOCYTES # (AUTO) 0.9 X 10^3 (1.0-4.0); LYMPHOCYTES % (AUTO) 22 % (12-44); MEAN CORPUSCULAR HEMOGLOBIN 31 PG (25-34); MEAN CORPUSCULAR HGB CONC 33 G/DL (32-36); MEAN CORPUSCULAR VOLUME 92 FL (80-99); MEAN PLATELET VOLUME 9.3 FL (7.4-10.4); MONOCYTES # (AUTO) 0.2 X 10^3 (0.0-1.0); MONOCYTES % (AUTO) 5 % (0-12); NEUTROPHILS % (AUTO) 71 % (42-75); PLATELET COUNT 166 10^3/uL (130-400); RED CELL DISTRIBUTION WIDTH 13.6 % (10.0-14.5); WHITE BLOOD COUNT 4.2 10^3/uL (4.3-11.0)
[2018-11-27 09:21] LABS: BUN/CREATININE RATIO 24; CALCIUM 8.8 MG/DL (8.5-10.1); CARBON DIOXIDE 26 MMOL/L (21-32); CHLORIDE 103 MMOL/L (98-107); CREATININE SERUM 0.76 MG/DL (0.60-1.30); GFR ESTIMATED > 60; GLUCOSE 73 MG/DL (70-105); POTASSIUM 3.8 MMOL/L (3.6-5.0); SODIUM 137 MMOL/L (135-145)
[2018-12-04 08:58] LABS: BASOPHILS % (AUTO) 1 % (0-10); EOSINOPHILS # (AUTO) 0.1 10^3/uL (0.0-0.3); EOSINOPHILS % (AUTO) 2 % (0-10); HEMATOCRIT 33 % (35-52); HEMOGLOBIN 11.1 G/DL (11.5-16.0); LYMPHOCYTES # (AUTO) 0.6 X 10^3 (1.0-4.0); LYMPHOCYTES % (AUTO) 21 % (12-44); MEAN CORPUSCULAR HEMOGLOBIN 31 PG (25-34); MEAN CORPUSCULAR HGB CONC 34 G/DL (32-36); MEAN CORPUSCULAR VOLUME 92 FL (80-99); MEAN PLATELET VOLUME 8.7 FL (7.4-10.4); MONOCYTES # (AUTO) 0.2 X 10^3 (0.0-1.0); MONOCYTES % (AUTO) 7 % (0-12); NEUTROPHILS % (AUTO) 70 % (42-75); PLATELET COUNT 217 10^3/uL (130-400); WHITE BLOOD COUNT 2.9 10^3/uL (4.3-11.0)
[2018-12-04 09:17] LABS: BUN/CREATININE RATIO 23; CALCIUM 8.8 MG/DL (8.5-10.1); CARBON DIOXIDE 25 MMOL/L (21-32); CHLORIDE 101 MMOL/L (98-107); CREATININE SERUM 0.78 MG/DL (0.60-1.30); GFR ESTIMATED > 60; GLUCOSE 123 MG/DL (70-105); POTASSIUM 3.6 MMOL/L (3.6-5.0); SODIUM 135 MMOL/L (135-145)
[2018-12-11 09:25] LABS: BASOPHILS % (AUTO) 1 % (0-10); EOSINOPHILS # (AUTO) 0.1 10^3/uL (0.0-0.3); EOSINOPHILS % (AUTO) 2 % (0-10); HEMATOCRIT 33 % (35-52); HEMOGLOBIN 11.1 G/DL (11.5-16.0); LYMPHOCYTES # (AUTO) 0.7 X 10^3 (1.0-4.0); LYMPHOCYTES % (AUTO) 22 % (12-44); MEAN CORPUSCULAR HEMOGLOBIN 31 PG (25-34); MEAN CORPUSCULAR HGB CONC 33 G/DL (32-36); MEAN CORPUSCULAR VOLUME 93 FL (80-99); MEAN PLATELET VOLUME 9.8 FL (7.4-10.4); MONOCYTES # (AUTO) 0.2 X 10^3 (0.0-1.0); MONOCYTES % (AUTO) 6 % (0-12); NEUTROPHILS # (AUTO) 2.3 X 10^3 (1.8-7.8); NEUTROPHILS % (AUTO) 70 % (42-75); PLATELET COUNT 180 10^3/uL (130-400); RED CELL DISTRIBUTION WIDTH 13.9 % (10.0-14.5); WHITE BLOOD COUNT 3.3 10^3/uL (4.3-11.0)
[2018-12-11 09:39] LABS: BUN/CREATININE RATIO 19; CALCIUM 8.7 MG/DL (8.5-10.1); CARBON DIOXIDE 26 MMOL/L (21-32); CHLORIDE 103 MMOL/L (98-107); CREATININE SERUM 0.81 MG/DL (0.60-1.30); GFR ESTIMATED > 60; GLUCOSE 123 MG/DL (70-105); POTASSIUM 3.9 MMOL/L (3.6-5.0); SODIUM 137 MMOL/L (135-145)
[2018-12-18 09:34] LABS: BASOPHILS % (AUTO) 1 % (0-10); EOSINOPHILS # (AUTO) 0.1 10^3/uL (0.0-0.3); EOSINOPHILS % (AUTO) 2 % (0-10); HEMATOCRIT 35 % (35-52); HEMOGLOBIN 11.5 G/DL (11.5-16.0); LYMPHOCYTES # (AUTO) 0.6 X 10^3 (1.0-4.0); LYMPHOCYTES % (AUTO) 12 % (12-44); MEAN CORPUSCULAR HEMOGLOBIN 30 PG (25-34); MEAN CORPUSCULAR HGB CONC 33 G/DL (32-36); MEAN CORPUSCULAR VOLUME 91 FL (80-99); MEAN PLATELET VOLUME 9.4 FL (7.4-10.4); MONOCYTES % (AUTO) 21 % (0-12); NEUTROPHILS # (AUTO) 3.2 X 10^3 (1.8-7.8); NEUTROPHILS % (AUTO) 65 % (42-75); PLATELET COUNT 159 10^3/uL (130-400)
[2018-12-18 09:56] LABS: ALANINE AMINOTRANSFERASE 7 U/L (0-55); ALBUMIN 4.1 GM/DL (3.2-4.5); ALKALINE PHOSPHATASE 77 U/L (40-136); BILIRUBIN,TOTAL 0.4 MG/DL (0.1-1.0); BUN/CREATININE RATIO 17; CALCIUM 8.9 MG/DL (8.5-10.1); CARBON DIOXIDE 23 MMOL/L (21-32); CHLORIDE 101 MMOL/L (98-107); CREATININE SERUM 0.75 MG/DL (0.60-1.30); GFR ESTIMATED > 60; GLUCOSE 153 MG/DL (70-105); POTASSIUM 3.3 MMOL/L (3.6-5.0); SODIUM 136 MMOL/L (135-145); TOTAL PROTEIN 7.1 GM/DL (6.4-8.2)
[2018-12-22 15:31] LABS: BILIRUBIN,URINE NEGATIVE (NEGATIVE); CLARITY,URINE CLEAR; COLOR,URINE YELLOW; GLUCOSE, URINE (UA) NEGATIVE (NEGATIVE); KETONES,URINE NEGATIVE (NEGATIVE); LEUKOCYTE ESTERASE ,URINE 2+ (NEGATIVE); NITRITE,URINE NEGATIVE (NEGATIVE); PH,URINE 6 (5-9); PROTEIN,URINE 1+ (NEGATIVE); UROBILINOGEN,URINE NORMAL (NORMAL)
[2018-12-22 15:39] LABS: BACTERIA,URINE NEGATIVE /HPF; RBC,URINE RARE /HPF; SQUAMOUS EPITHELIAL CELL,UR 0-2 /HPF; WBC,URINE RARE /HPF
[~2018-12-26] VITALS: Ht 160 cm; Wt 60.3 kg
[~2018-12-26 08:35] MED LIST changes: +CTR IV SCH; +NS IV 1000 ML (CANCER CTR) IV SCH; +NS IV 500 ML (CANCER CENTER) 500 ML ONE; +ONDANSETRON MDV (CANCER CENTER 16 MG, DEXAMETHASONE INJECTION 10 MG in NS (IVPB) CANCER... IV SCH; +PACLITAXEL PROTEIN IV SCH; +PACLitaxel PROTEIN 160 MG in EMPTY IV BAG (PVC) CANCER CTR 1 EA IV SCH
[2018-12-26 08:58] LABS: BASOPHILS % (AUTO) 0 % (0-10); EOSINOPHILS # (AUTO) 0.3 10^3/uL (0.0-0.3); EOSINOPHILS % (AUTO) 4 % (0-10); HEMATOCRIT 33 % (35-52); HEMOGLOBIN 11.1 G/DL (11.5-16.0); LYMPHOCYTES # (AUTO) 0.7 X 10^3 (1.0-4.0); LYMPHOCYTES % (AUTO) 10 % (12-44); MEAN CORPUSCULAR HEMOGLOBIN 30 PG (25-34); MEAN CORPUSCULAR HGB CONC 34 G/DL (32-36); MEAN CORPUSCULAR VOLUME 90 FL (80-99); MEAN PLATELET VOLUME 8.8 FL (7.4-10.4); MONOCYTES # (AUTO) 0.7 X 10^3 (0.0-1.0); MONOCYTES % (AUTO) 10 % (0-12); NEUTROPHILS # (AUTO) 5.2 X 10^3 (1.8-7.8); NEUTROPHILS % (AUTO) 76 % (42-75); PLATELET COUNT 204 10^3/uL (130-400); RED CELL DISTRIBUTION WIDTH 13.8 % (10.0-14.5); WHITE BLOOD COUNT 6.9 10^3/uL (4.3-11.0)
[2018-12-26 09:17] LABS: BUN/CREATININE RATIO 19; CALCIUM 8.9 MG/DL (8.5-10.1); CARBON DIOXIDE 27 MMOL/L (21-32); CHLORIDE 101 MMOL/L (98-107); CREATININE SERUM 0.77 MG/DL (0.60-1.30); GFR ESTIMATED > 60; GLUCOSE 123 MG/DL (70-105); POTASSIUM 3.3 MMOL/L (3.6-5.0); SODIUM 135 MMOL/L (135-145)
[2018-12-26] MEDS ORDERED: PACLitaxel PROTEIN 130 MG in EMPTY IV BAG (PVC) CANCER CTR 1 EA IV SCH (09:30)
== END 2018-12-31 | disposition home or self-care (01) ==
LOC: ONC 08:35
PROVIDERS: ATTEND Internal Medicine Hematology & Oncology
DX: Z51.11 Encounter for antineoplastic chemotherapy (principal); C34.11 Malignant neoplasm of upper lobe, right bronchus or lung; C79.51 Secondary malignant neoplasm of bone; K76.9 Liver disease, unspecified; C78.01 Secondary malignant neoplasm of right lung; C78.02 Secondary malignant neoplasm of left lung; E05.00 Thyrotoxicosis with diffuse goiter without thyrotoxic crisis or storm; I25.10 Atherosclerotic heart disease of native coronary artery without angina pectoris; I27.20 Pulmonary hypertension, unspecified; E80.6 Other disorders of bilirubin metabolism; Z86.711 Personal history of pulmonary embolism; Z82.49 Family history of ischemic heart disease and other diseases of the circulatory system; Z79.01 Long term (current) use of anticoagulants; Z79.899 Other long term (current) drug therapy
CPT/HCPCS: 36415; 36591; 71046; 80048; 80053; 81000; 83735; 84443; 85025; 87088; 96375; 96413

== ENCOUNTER → 2019-01-11 | Outpatient (CLI) | payer MEDICAID ==
[~2019-01-11] MED LIST changes: +CATHETER FLUSH 10 ML SYR IV PRN; -CTR IV SCH; +HOLD METFORMIN - RECEIVED CONTRAST 20 ML VIAL IV SCH; +IOHEXOL 350 MG/ML 100 ML (OMNIPAQUE 350) VIAL IV ONE; +NS 100 ML (IVPB) BAG IV ONE; -NS IV 1000 ML (CANCER CTR) IV SCH; -NS IV 500 ML (CANCER CENTER) 500 ML ONE; -ONDANSETRON MDV (CANCER CENTER 16 MG, DEXAMETHASONE INJECTION 10 MG in NS (IVPB) CANCER... IV SCH; -PACLITAXEL PROTEIN IV SCH; -PACLitaxel PROTEIN 160 MG in EMPTY IV BAG (PVC) CANCER CTR 1 EA IV SCH
--- NOTE | 2019-01-11 12:50 | Diagnostic Imaging Report ---
INDICATION: Lung carcinoma as well as cough. TECHNIQUE: Axial imaging through the neck, chest, and abdomen was performed after the administration of intravenous contrast. COMPARISON: Correlation is made with prior CT of the chest and abdomen from 09/12/2018. CT NECK: Visualized intracranial structures are unremarkable. The posterior nasopharynx is unremarkable. The oropharynx is unremarkable. Parapharyngeal fat planes are preserved. Epiglottis and larynx are unremarkable. No definite thyroid mass is seen. Submandibular and parotid glands are symmetric bilaterally. No definite cervical lymphadenopathy is seen. IMPRESSION: Unremarkable CT of the neck. CT CHEST: A right chest wall port remains in place. No axillary lymphadenopathy is seen. No mediastinal or hilar lymphadenopathy is detected. There is no pericardial or pleural fluid identified. Interlobular septal thickening is seen throughout both lungs. A spiculated density in the right upper lobe measures approximately 1.7 x 1.3 cm compared with 1.8 x 1.5 cm. The elongated density inferior to this measures approximately 1.7 x 0.9 cm. There appears to be trace right-sided pneumothorax. Parenchymal density in the posterior aspect of the right upper lobe measures 1.6 x 0.9 cm, stable. Additional nodular densities in both lungs appear to be similar, although nodular density in the left lower lobe posteriorly appears to be slightly larger at 9 mm compared with 5 mm. There is a lytic lesion that has increased in size involving the left posterior ninth rib measuring 16 mm x 9 mm. This measured approximately 5 mm on prior exam. No other bony abnormalities are seen. CT ABDOMEN: Low-density masses within the liver are again noted. Large cystic mass near the dome appears fairly stable. Low-density mass in the left lobe has increased significantly in size measuring 3.4 x 3.1 cm compared with 0.6 x 1.3 cm. Several additional low-density masses have developed in the liver as well both in the left and right lobes concerning for metastatic disease. Gallbladder is unremarkable. The pancreas and spleen are unremarkable. There is a mass in the region of the left lateral limb of the adrenal gland measuring 2.0 x 1.3 cm, which appears new. Right adrenal gland is unremarkable. Kidneys are unremarkable. Aorta is nonaneurysmal. Bowel loops are normal in caliber. There is no ascites. There is no central retroperitoneal or mesenteric lymphadenopathy. IMPRESSION: 1. Development of multiple solid-appearing masses throughout the liver suggestive of hepatic metastatic disease. There is also questionable left adrenal mass. No abdominal lymphadenopathy is seen. 2. Overall, fairly stable appearance of the chest with the exception of slight enlargement of a nodular density in the posterior left lower lobe. There also appears to be a trace amount of pneumothorax on the right. There is interlobular septal thickening throughout both lungs likely owing to fibrosis. There has been an increase in size of a lytic left posterior rib lesion when compared with prior CT, consistent with osseous metastasis. Dictated by: Dictated on workstation # [id number]
--- NOTE | 2019-01-11 16:19 | Diagnostic Imaging Report ---
INDICATION: Lung carcinoma with bone metastasis. TECHNIQUE: Patient was administered 26.8 mCi of technetium-99m MDP intravenously and whole-body imaging was performed after a three-hour delay. COMPARISON: Correlation is made with prior whole body bone scan from 09/12/2018. FINDINGS: Increased uptake involving the left posterior approximately ninth rib is seen, correlating to the lytic lesion noted on CT. No other suspicious foci are seen. There is normal uptake in both kidneys with excretion into the urinary bladder. IMPRESSION: Left posterior ninth rib uptake correlating with the lytic lesion on CT and suggestive of a metastatic lesion. Dictated by: Dictated on workstation # [id number]
== END ==
LOC: CARD 11:01
PROVIDERS: ATTEND Nurse Practitioner Adult Health
DX: C34.90 Malignant neoplasm of unspecified part of unspecified bronchus or lung (principal); C79.51 Secondary malignant neoplasm of bone; K76.9 Liver disease, unspecified; Z95.828 Presence of other vascular implants and grafts
CPT/HCPCS: 70491; 71260; 74160; 78306

== ENCOUNTER → 2019-02-27 | Outpatient (CLI) | payer MEDICAID ==
[~2019-02-27] MED LIST changes: -CATHETER FLUSH 10 ML SYR IV PRN; -HOLD METFORMIN - RECEIVED CONTRAST 20 ML VIAL IV SCH; -IOHEXOL 350 MG/ML 100 ML (OMNIPAQUE 350) VIAL IV ONE; -NS 100 ML (IVPB) BAG IV ONE; -OMEP20CA12 PO; +OMEP20CA13 PO
--- NOTE | 2019-02-27 10:28 | Diagnostic Imaging Report ---
INDICATION: History of lung cancer. COMPARISON: 12/18/2018. FINDINGS: Frontal and lateral radiographic views of the chest were obtained and again show mild asymmetric elevation of the right hemidiaphragm. There are chronic diffuse coarse interstitial opacities bilaterally. The patient's pulmonary nodules are difficult to distinguish and are likely obscured by the underlying chronic lung disease. There is no large effusion or pneumothorax. The cardiac silhouette and pulmonary vasculature are stable. A right internal jugular Port-A-Cath is present with the tip near the cavoatrial junction. The osseous structures show no gross acute abnormality. IMPRESSION: Stable exam of the chest as described above. Dictated by: Dictated on workstation # [id number]
== END ==
LOC: RAD 09:45
PROVIDERS: ATTEND Nurse Practitioner Adult Health
DX: J98.6 Disorders of diaphragm (principal); R91.8 Other nonspecific abnormal finding of lung field; Z95.9 Presence of cardiac and vascular implant and graft, unspecified; Z85.118 Personal history of other malignant neoplasm of bronchus and lung
CPT/HCPCS: 71046

== ENCOUNTER 2019-03-27 08:37 | Outpatient (RCR) | payer MEDICAID ==
[2019-01-02 08:49] LABS: BASOPHILS % (AUTO) 1 % (0-10); EOSINOPHILS # (AUTO) 0.2 10^3/uL (0.0-0.3); EOSINOPHILS % (AUTO) 5 % (0-10); HEMATOCRIT 33 % (35-52); HEMOGLOBIN 10.9 G/DL (11.5-16.0); LYMPHOCYTES # (AUTO) 0.7 X 10^3 (1.0-4.0); LYMPHOCYTES % (AUTO) 13 % (12-44); MEAN CORPUSCULAR HEMOGLOBIN 30 PG (25-34); MEAN CORPUSCULAR HGB CONC 33 G/DL (32-36); MEAN CORPUSCULAR VOLUME 90 FL (80-99); MEAN PLATELET VOLUME 8.8 FL (7.4-10.4); MONOCYTES # (AUTO) 0.6 X 10^3 (0.0-1.0); MONOCYTES % (AUTO) 12 % (0-12); NEUTROPHILS # (AUTO) 3.4 X 10^3 (1.8-7.8); NEUTROPHILS % (AUTO) 70 % (42-75); PLATELET COUNT 201 10^3/uL (130-400); RED CELL DISTRIBUTION WIDTH 13.7 % (10.0-14.5); WHITE BLOOD COUNT 4.9 10^3/uL (4.3-11.0)
[2019-01-02 09:07] LABS: BUN/CREATININE RATIO 19; CARBON DIOXIDE 24 MMOL/L (21-32); CHLORIDE 100 MMOL/L (98-107); CREATININE SERUM 0.75 MG/DL (0.60-1.30); GFR ESTIMATED > 60; GLUCOSE 137 MG/DL (70-105); POTASSIUM 3.5 MMOL/L (3.6-5.0); SODIUM 135 MMOL/L (135-145)
[2019-01-09 09:12] LABS: BASOPHILS % (AUTO) 1 % (0-10); EOSINOPHILS # (AUTO) 0.1 10^3/uL (0.0-0.3); EOSINOPHILS % (AUTO) 2 % (0-10); HEMATOCRIT 33 % (35-52); LYMPHOCYTES # (AUTO) 0.6 X 10^3 (1.0-4.0); LYMPHOCYTES % (AUTO) 11 % (12-44); MEAN CORPUSCULAR HEMOGLOBIN 31 PG (25-34); MEAN CORPUSCULAR HGB CONC 34 G/DL (32-36); MEAN CORPUSCULAR VOLUME 91 FL (80-99); MEAN PLATELET VOLUME 8.7 FL (7.4-10.4); MONOCYTES # (AUTO) 0.5 X 10^3 (0.0-1.0); MONOCYTES % (AUTO) 9 % (0-12); NEUTROPHILS # (AUTO) 4.2 X 10^3 (1.8-7.8); NEUTROPHILS % (AUTO) 77 % (42-75); PLATELET COUNT 242 10^3/uL (130-400); RED CELL DISTRIBUTION WIDTH 14.6 % (10.0-14.5); WHITE BLOOD COUNT 5.4 10^3/uL (4.3-11.0)
[2019-01-09 09:32] LABS: BUN/CREATININE RATIO 26; CARBON DIOXIDE 26 MMOL/L (21-32); CHLORIDE 98 MMOL/L (98-107); CREATININE SERUM 0.86 MG/DL (0.60-1.30); GFR ESTIMATED > 60; GLUCOSE 118 MG/DL (70-105); POTASSIUM 4.5 MMOL/L (3.6-5.0); SODIUM 132 MMOL/L (135-145)
[2019-01-16 09:25] LABS: BASOPHILS % (AUTO) 1 % (0-10); EOSINOPHILS # (AUTO) 0.1 10^3/uL (0.0-0.3); EOSINOPHILS % (AUTO) 2 % (0-10); HEMATOCRIT 34 % (35-52); HEMOGLOBIN 11.4 G/DL (11.5-16.0); LYMPHOCYTES # (AUTO) 0.8 X 10^3 (1.0-4.0); LYMPHOCYTES % (AUTO) 15 % (12-44); MEAN CORPUSCULAR HEMOGLOBIN 30 PG (25-34); MEAN CORPUSCULAR HGB CONC 33 G/DL (32-36); MEAN CORPUSCULAR VOLUME 91 FL (80-99); MEAN PLATELET VOLUME 8.4 FL (7.4-10.4); MONOCYTES # (AUTO) 0.7 X 10^3 (0.0-1.0); MONOCYTES % (AUTO) 14 % (0-12); NEUTROPHILS # (AUTO) 3.6 X 10^3 (1.8-7.8); NEUTROPHILS % (AUTO) 69 % (42-75); PLATELET COUNT 199 10^3/uL (130-400); RED CELL DISTRIBUTION WIDTH 14.7 % (10.0-14.5); WHITE BLOOD COUNT 5.3 10^3/uL (4.3-11.0)
[2019-01-16 09:44] LABS: ALANINE AMINOTRANSFERASE 8 U/L (0-55); ALBUMIN 4.1 GM/DL (3.2-4.5); ALKALINE PHOSPHATASE 83 U/L (40-136); BILIRUBIN,TOTAL 0.6 MG/DL (0.1-1.0); BUN/CREATININE RATIO 24; CALCIUM 9.1 MG/DL (8.5-10.1); CARBON DIOXIDE 26 MMOL/L (21-32); CHLORIDE 98 MMOL/L (98-107); GFR ESTIMATED > 60; GLUCOSE 119 MG/DL (70-105); MAGNESIUM 2.1 MG/DL (1.8-2.4); POTASSIUM 3.9 MMOL/L (3.6-5.0); SODIUM 133 MMOL/L (135-145); TOTAL PROTEIN 7.1 GM/DL (6.4-8.2)
[2019-01-23 09:06] LABS: BASOPHILS % (AUTO) 1 % (0-10); EOSINOPHILS # (AUTO) 0.2 10^3/uL (0.0-0.3); EOSINOPHILS % (AUTO) 5 % (0-10); HEMATOCRIT 34 % (35-52); HEMOGLOBIN 11.2 G/DL (11.5-16.0); LYMPHOCYTES # (AUTO) 0.6 X 10^3 (1.0-4.0); LYMPHOCYTES % (AUTO) 16 % (12-44); MEAN CORPUSCULAR HEMOGLOBIN 30 PG (25-34); MEAN CORPUSCULAR HGB CONC 33 G/DL (32-36); MEAN CORPUSCULAR VOLUME 91 FL (80-99); MEAN PLATELET VOLUME 8.5 FL (7.4-10.4); MONOCYTES # (AUTO) 0.5 X 10^3 (0.0-1.0); MONOCYTES % (AUTO) 12 % (0-12); NEUTROPHILS # (AUTO) 2.5 X 10^3 (1.8-7.8); NEUTROPHILS % (AUTO) 67 % (42-75); PLATELET COUNT 138 10^3/uL (130-400); RED CELL DISTRIBUTION WIDTH 14.3 % (10.0-14.5); WHITE BLOOD COUNT 3.8 10^3/uL (4.3-11.0)
[2019-01-23 09:23] LABS: BUN/CREATININE RATIO 23; CALCIUM 8.9 MG/DL (8.5-10.1); CARBON DIOXIDE 24 MMOL/L (21-32); CHLORIDE 100 MMOL/L (98-107); CREATININE SERUM 0.79 MG/DL (0.60-1.30); GFR ESTIMATED > 60; GLUCOSE 113 MG/DL (70-105); POTASSIUM 3.7 MMOL/L (3.6-5.0); SODIUM 134 MMOL/L (135-145)
[2019-01-30 09:02] LABS: BASOPHILS % (AUTO) 1 % (0-10); EOSINOPHILS # (AUTO) 0.2 10^3/uL (0.0-0.3); EOSINOPHILS % (AUTO) 7 % (0-10); HEMATOCRIT 34 % (35-52); HEMOGLOBIN 11.3 G/DL (11.5-16.0); LYMPHOCYTES # (AUTO) 0.7 X 10^3 (1.0-4.0); LYMPHOCYTES % (AUTO) 21 % (12-44); MEAN CORPUSCULAR HEMOGLOBIN 30 PG (25-34); MEAN CORPUSCULAR HGB CONC 33 G/DL (32-36); MEAN CORPUSCULAR VOLUME 92 FL (80-99); MEAN PLATELET VOLUME 9.7 FL (7.4-10.4); MONOCYTES # (AUTO) 0.4 X 10^3 (0.0-1.0); MONOCYTES % (AUTO) 13 % (0-12); NEUTROPHILS # (AUTO) 1.9 X 10^3 (1.8-7.8); NEUTROPHILS % (AUTO) 59 % (42-75); PLATELET COUNT 84 10^3/uL (130-400); RED CELL DISTRIBUTION WIDTH 14.8 % (10.0-14.5); WHITE BLOOD COUNT 3.2 10^3/uL (4.3-11.0)
[2019-01-30 09:24] LABS: BUN/CREATININE RATIO 27; CALCIUM 9.2 MG/DL (8.5-10.1); CARBON DIOXIDE 26 MMOL/L (21-32); CHLORIDE 101 MMOL/L (98-107); CREATININE SERUM 0.82 MG/DL (0.60-1.30); GFR ESTIMATED > 60; GLUCOSE 126 MG/DL (70-105); POTASSIUM 4.4 MMOL/L (3.6-5.0); SODIUM 137 MMOL/L (135-145)
[2019-02-06 10:02] LABS: BASOPHILS % (AUTO) 1 % (0-10); EOSINOPHILS # (AUTO) 0.1 10^3/uL (0.0-0.3); EOSINOPHILS % (AUTO) 2 % (0-10); HEMATOCRIT 34 % (35-52); HEMOGLOBIN 11.4 G/DL (11.5-16.0); LYMPHOCYTES # (AUTO) 0.8 X 10^3 (1.0-4.0); LYMPHOCYTES % (AUTO) 15 % (12-44); MEAN CORPUSCULAR HEMOGLOBIN 30 PG (25-34); MEAN CORPUSCULAR HGB CONC 33 G/DL (32-36); MEAN CORPUSCULAR VOLUME 91 FL (80-99); MEAN PLATELET VOLUME 8.7 FL (7.4-10.4); MONOCYTES # (AUTO) 0.7 X 10^3 (0.0-1.0); MONOCYTES % (AUTO) 13 % (0-12); NEUTROPHILS # (AUTO) 3.7 X 10^3 (1.8-7.8); NEUTROPHILS % (AUTO) 69 % (42-75); PLATELET COUNT 204 10^3/uL (130-400); RED CELL DISTRIBUTION WIDTH 15.1 % (10.0-14.5); WHITE BLOOD COUNT 5.4 10^3/uL (4.3-11.0)
[2019-02-06 10:22] LABS: ALANINE AMINOTRANSFERASE 10 U/L (0-55); ALBUMIN 4.1 GM/DL (3.2-4.5); ALKALINE PHOSPHATASE 91 U/L (40-136); BILIRUBIN,TOTAL 0.6 MG/DL (0.1-1.0); BUN/CREATININE RATIO 31; CALCIUM 9.1 MG/DL (8.5-10.1); CARBON DIOXIDE 27 MMOL/L (21-32); CHLORIDE 101 MMOL/L (98-107); CREATININE SERUM 0.75 MG/DL (0.60-1.30); GFR ESTIMATED > 60; GLUCOSE 77 MG/DL (70-105); POTASSIUM 4.1 MMOL/L (3.6-5.0); SODIUM 138 MMOL/L (135-145); TOTAL PROTEIN 7.2 GM/DL (6.4-8.2)
[2019-02-13 08:58] LABS: BASOPHILS % (AUTO) 1 % (0-10); EOSINOPHILS # (AUTO) 0.1 10^3/uL (0.0-0.3); EOSINOPHILS % (AUTO) 4 % (0-10); HEMATOCRIT 35 % (35-52); HEMOGLOBIN 11.7 G/DL (11.5-16.0); LYMPHOCYTES # (AUTO) 0.6 X 10^3 (1.0-4.0); LYMPHOCYTES % (AUTO) 25 % (12-44); MEAN CORPUSCULAR HEMOGLOBIN 31 PG (25-34); MEAN CORPUSCULAR HGB CONC 34 G/DL (32-36); MEAN CORPUSCULAR VOLUME 91 FL (80-99); MONOCYTES # (AUTO) 0.5 X 10^3 (0.0-1.0); MONOCYTES % (AUTO) 18 % (0-12); NEUTROPHILS # (AUTO) 1.3 X 10^3 (1.8-7.8); NEUTROPHILS % (AUTO) 52 % (42-75); PLATELET COUNT 151 10^3/uL (130-400); RED CELL DISTRIBUTION WIDTH 14.5 % (10.0-14.5); WHITE BLOOD COUNT 2.5 10^3/uL (4.3-11.0)
[2019-02-13 09:20] LABS: ALANINE AMINOTRANSFERASE 10 U/L (0-55); ALBUMIN 4.1 GM/DL (3.2-4.5); ALKALINE PHOSPHATASE 87 U/L (40-136); BILIRUBIN,TOTAL 0.6 MG/DL (0.1-1.0); BUN/CREATININE RATIO 25; CALCIUM 8.8 MG/DL (8.5-10.1); CARBON DIOXIDE 25 MMOL/L (21-32); CHLORIDE 102 MMOL/L (98-107); CREATININE SERUM 0.81 MG/DL (0.60-1.30); GFR ESTIMATED > 60; GLUCOSE 140 MG/DL (70-105); POTASSIUM 3.5 MMOL/L (3.6-5.0); SODIUM 136 MMOL/L (135-145); TOTAL PROTEIN 7.2 GM/DL (6.4-8.2)
[2019-02-20 09:16] LABS: BASOPHILS % (AUTO) 1 % (0-10); EOSINOPHILS # (AUTO) 0.1 10^3/uL (0.0-0.3); EOSINOPHILS % (AUTO) 4 % (0-10); HEMATOCRIT 35 % (35-52); HEMOGLOBIN 11.4 G/DL (11.5-16.0); LYMPHOCYTES # (AUTO) 0.6 X 10^3 (1.0-4.0); LYMPHOCYTES % (AUTO) 21 % (12-44); MEAN CORPUSCULAR HEMOGLOBIN 30 PG (25-34); MEAN CORPUSCULAR HGB CONC 33 G/DL (32-36); MEAN CORPUSCULAR VOLUME 92 FL (80-99); MEAN PLATELET VOLUME 9.4 FL (7.4-10.4); MONOCYTES # (AUTO) 0.5 X 10^3 (0.0-1.0); MONOCYTES % (AUTO) 16 % (0-12); NEUTROPHILS # (AUTO) 1.7 X 10^3 (1.8-7.8); NEUTROPHILS % (AUTO) 59 % (42-75); PLATELET COUNT 112 10^3/uL (130-400); RED CELL DISTRIBUTION WIDTH 15.2 % (10.0-14.5); WHITE BLOOD COUNT 2.9 10^3/uL (4.3-11.0)
[2019-02-20 09:31] LABS: BUN/CREATININE RATIO 21; CALCIUM 8.8 MG/DL (8.5-10.1); CARBON DIOXIDE 24 MMOL/L (21-32); CHLORIDE 102 MMOL/L (98-107); CREATININE SERUM 0.81 MG/DL (0.60-1.30); GFR ESTIMATED > 60; GLUCOSE 105 MG/DL (70-105); POTASSIUM 4.3 MMOL/L (3.6-5.0); SODIUM 136 MMOL/L (135-145)
[2019-02-27 10:22] LABS: BASOPHILS % (AUTO) 0 % (0-10); EOSINOPHILS # (AUTO) 0.1 10^3/uL (0.0-0.3); EOSINOPHILS % (AUTO) 2 % (0-10); HEMATOCRIT 35 % (35-52); HEMOGLOBIN 11.5 G/DL (11.5-16.0); LYMPHOCYTES # (AUTO) 0.8 X 10^3 (1.0-4.0); LYMPHOCYTES % (AUTO) 13 % (12-44); MEAN CORPUSCULAR HEMOGLOBIN 30 PG (25-34); MEAN CORPUSCULAR HGB CONC 33 G/DL (32-36); MEAN CORPUSCULAR VOLUME 91 FL (80-99); MEAN PLATELET VOLUME 9.3 FL (7.4-10.4); MONOCYTES # (AUTO) 0.6 X 10^3 (0.0-1.0); MONOCYTES % (AUTO) 11 % (0-12); NEUTROPHILS # (AUTO) 4.3 X 10^3 (1.8-7.8); NEUTROPHILS % (AUTO) 74 % (42-75); PLATELET COUNT 196 10^3/uL (130-400); RED CELL DISTRIBUTION WIDTH 15.2 % (10.0-14.5); WHITE BLOOD COUNT 5.8 10^3/uL (4.3-11.0)
[2019-02-27 10:40] LABS: ALANINE AMINOTRANSFERASE 7 U/L (0-55); ALBUMIN 4.1 GM/DL (3.2-4.5); ALKALINE PHOSPHATASE 76 U/L (40-136); BILIRUBIN,TOTAL 0.7 MG/DL (0.1-1.0); BUN/CREATININE RATIO 25; CALCIUM 8.7 MG/DL (8.5-10.1); CARBON DIOXIDE 28 MMOL/L (21-32); CHLORIDE 103 MMOL/L (98-107); CREATININE SERUM 0.79 MG/DL (0.60-1.30); GFR ESTIMATED > 60; GLUCOSE 130 MG/DL (70-105); POTASSIUM 3.7 MMOL/L (3.6-5.0); SODIUM 138 MMOL/L (135-145)
[2019-03-06 09:03] LABS: BASOPHILS % (AUTO) 0 % (0-10); EOSINOPHILS # (AUTO) 0.1 10^3/uL (0.0-0.3); EOSINOPHILS % (AUTO) 3 % (0-10); HEMATOCRIT 34 % (35-52); HEMOGLOBIN 11.5 G/DL (11.5-16.0); LYMPHOCYTES # (AUTO) 0.6 X 10^3 (1.0-4.0); LYMPHOCYTES % (AUTO) 22 % (12-44); MEAN CORPUSCULAR HEMOGLOBIN 30 PG (25-34); MEAN CORPUSCULAR HGB CONC 33 G/DL (32-36); MEAN CORPUSCULAR VOLUME 91 FL (80-99); MONOCYTES # (AUTO) 0.4 X 10^3 (0.0-1.0); MONOCYTES % (AUTO) 15 % (0-12); NEUTROPHILS # (AUTO) 1.6 X 10^3 (1.8-7.8); NEUTROPHILS % (AUTO) 60 % (42-75); PLATELET COUNT 169 10^3/uL (130-400); RED CELL DISTRIBUTION WIDTH 14.9 % (10.0-14.5); WHITE BLOOD COUNT 2.7 10^3/uL (4.3-11.0)
[2019-03-06 09:22] LABS: BUN/CREATININE RATIO 24; CALCIUM 8.8 MG/DL (8.5-10.1); CARBON DIOXIDE 25 MMOL/L (21-32); CHLORIDE 103 MMOL/L (98-107); CREATININE SERUM 0.79 MG/DL (0.60-1.30); GFR ESTIMATED > 60; GLUCOSE 123 MG/DL (70-105); POTASSIUM 3.5 MMOL/L (3.6-5.0); SODIUM 137 MMOL/L (135-145)
[2019-03-13 09:04] LABS: BASOPHILS % (AUTO) 1 % (0-10); EOSINOPHILS # (AUTO) 0.1 10^3/uL (0.0-0.3); EOSINOPHILS % (AUTO) 4 % (0-10); HEMATOCRIT 35 % (35-52); HEMOGLOBIN 11.6 G/DL (11.5-16.0); LYMPHOCYTES # (AUTO) 0.6 X 10^3 (1.0-4.0); LYMPHOCYTES % (AUTO) 18 % (12-44); MEAN CORPUSCULAR HEMOGLOBIN 30 PG (25-34); MEAN CORPUSCULAR HGB CONC 33 G/DL (32-36); MEAN CORPUSCULAR VOLUME 91 FL (80-99); MEAN PLATELET VOLUME 10.1 FL (7.4-10.4); MONOCYTES # (AUTO) 0.4 X 10^3 (0.0-1.0); MONOCYTES % (AUTO) 12 % (0-12); NEUTROPHILS # (AUTO) 2.3 X 10^3 (1.8-7.8); NEUTROPHILS % (AUTO) 66 % (42-75); PLATELET COUNT 98 10^3/uL (130-400); RED CELL DISTRIBUTION WIDTH 14.8 % (10.0-14.5); WHITE BLOOD COUNT 3.5 10^3/uL (4.3-11.0)
[2019-03-13 09:39] LABS: BUN/CREATININE RATIO 20; CARBON DIOXIDE 27 MMOL/L (21-32); CHLORIDE 103 MMOL/L (98-107); GFR ESTIMATED > 60; GLUCOSE 121 MG/DL (70-105); SODIUM 139 MMOL/L (135-145)
[2019-03-20 08:51] LABS: BASOPHILS % (AUTO) 0 % (0-10); EOSINOPHILS # (AUTO) 0.1 10^3/uL (0.0-0.3); EOSINOPHILS % (AUTO) 2 % (0-10); HEMATOCRIT 35 % (35-52); HEMOGLOBIN 11.6 G/DL (11.5-16.0); LYMPHOCYTES # (AUTO) 0.7 X 10^3 (1.0-4.0); LYMPHOCYTES % (AUTO) 15 % (12-44); MEAN CORPUSCULAR HEMOGLOBIN 30 PG (25-34); MEAN CORPUSCULAR HGB CONC 33 G/DL (32-36); MEAN CORPUSCULAR VOLUME 91 FL (80-99); MEAN PLATELET VOLUME 8.8 FL (7.4-10.4); MONOCYTES # (AUTO) 0.5 X 10^3 (0.0-1.0); MONOCYTES % (AUTO) 12 % (0-12); NEUTROPHILS # (AUTO) 3.2 X 10^3 (1.8-7.8); NEUTROPHILS % (AUTO) 71 % (42-75); PLATELET COUNT 194 10^3/uL (130-400); RED CELL DISTRIBUTION WIDTH 15.2 % (10.0-14.5); WHITE BLOOD COUNT 4.6 10^3/uL (4.3-11.0)
[2019-03-20 09:11] LABS: ALANINE AMINOTRANSFERASE 8 U/L (0-55); ALBUMIN 4.2 GM/DL (3.2-4.5); ALKALINE PHOSPHATASE 85 U/L (40-136); BILIRUBIN,TOTAL 0.6 MG/DL (0.1-1.0); BUN/CREATININE RATIO 22; CALCIUM 8.8 MG/DL (8.5-10.1); CARBON DIOXIDE 25 MMOL/L (21-32); CHLORIDE 104 MMOL/L (98-107); CREATININE SERUM 0.82 MG/DL (0.60-1.30); GFR ESTIMATED > 60; GLUCOSE 157 MG/DL (70-105); POTASSIUM 3.7 MMOL/L (3.6-5.0); SODIUM 137 MMOL/L (135-145); TOTAL PROTEIN 7.1 GM/DL (6.4-8.2)
[~2019-03-27] VITALS: Ht 160 cm; Wt 64.0 kg
[~2019-03-27 08:37] MED LIST changes: +GEMCITABINE HCL 1 GM, GEMCITABINE HCL 300 MG in NS (IVPB) CANCER CENTER 100 ML IV SCH; +NS IV 1000 ML (CANCER CTR) IV SCH; +NS IV 500 ML (CANCER CENTER) 500 ML ONE; +ONDANSETRON MDV (CANCER CENTER 16 MG, DEXAMETHASONE INJECTION 10 MG in NS (IVPB) CANCER... IV SCH; +ONDANSETRON MDV (CANCER CENTER 8 MG, DEXAMETHASONE INJ (CANCER CTR) 4 MG in NS (IVPB) C... IV SCH; +ONDANSETRON MDV (CANCER CENTER 8 MG, DEXAMETHASONE INJECTION 10 MG in NS (IVPB) CANCER ... IV SCH; +PACLitaxel PROTEIN 130 MG in EMPTY IV BAG (PVC) CANCER CTR 1 EA IV SCH
[2019-03-27 09:20] LABS: BASOPHILS % (AUTO) 1 % (0-10); EOSINOPHILS # (AUTO) 0.1 10^3/uL (0.0-0.3); EOSINOPHILS % (AUTO) 3 % (0-10); HEMATOCRIT 35 % (35-52); HEMOGLOBIN 11.4 G/DL (11.5-16.0); LYMPHOCYTES # (AUTO) 0.6 X 10^3 (1.0-4.0); LYMPHOCYTES % (AUTO) 22 % (12-44); MEAN CORPUSCULAR HEMOGLOBIN 30 PG (25-34); MEAN CORPUSCULAR HGB CONC 33 G/DL (32-36); MEAN CORPUSCULAR VOLUME 90 FL (80-99); MEAN PLATELET VOLUME 9.1 FL (7.4-10.4); MONOCYTES # (AUTO) 0.4 X 10^3 (0.0-1.0); MONOCYTES % (AUTO) 12 % (0-12); NEUTROPHILS # (AUTO) 1.8 X 10^3 (1.8-7.8); NEUTROPHILS % (AUTO) 62 % (42-75); PLATELET COUNT 160 10^3/uL (130-400); RED CELL DISTRIBUTION WIDTH 14.5 % (10.0-14.5); WHITE BLOOD COUNT 2.8 10^3/uL (4.3-11.0)
[2019-03-27 09:39] LABS: BUN/CREATININE RATIO 22; CALCIUM 8.7 MG/DL (8.5-10.1); CARBON DIOXIDE 26 MMOL/L (21-32); CHLORIDE 103 MMOL/L (98-107); CREATININE SERUM 0.79 MG/DL (0.60-1.30); GFR ESTIMATED > 60; GLUCOSE 154 MG/DL (70-105); POTASSIUM 3.5 MMOL/L (3.6-5.0); SODIUM 136 MMOL/L (135-145)
== END 2019-04-02 | disposition home or self-care (01) ==
LOC: ONC 08:37
PROVIDERS: ATTEND Internal Medicine Hematology & Oncology
DX: Z51.11 Encounter for antineoplastic chemotherapy (principal); C34.11 Malignant neoplasm of upper lobe, right bronchus or lung; C79.51 Secondary malignant neoplasm of bone; K76.9 Liver disease, unspecified; C78.01 Secondary malignant neoplasm of right lung; C78.02 Secondary malignant neoplasm of left lung; E05.00 Thyrotoxicosis with diffuse goiter without thyrotoxic crisis or storm; I25.10 Atherosclerotic heart disease of native coronary artery without angina pectoris; I27.20 Pulmonary hypertension, unspecified; E80.6 Other disorders of bilirubin metabolism; Z86.711 Personal history of pulmonary embolism; Z82.49 Family history of ischemic heart disease and other diseases of the circulatory system; Z79.01 Long term (current) use of anticoagulants; Z79.899 Other long term (current) drug therapy
CPT/HCPCS: 36415; 36591; 80048; 80053; 83615; 83735; 84443; 85025; 96375; 96413

== ENCOUNTER → 2019-04-06 | Outpatient (CLI) | payer MEDICAID ==
[~2019-04-06] MED LIST changes: +BARIUM SUSPENSION 2.1% (VANILLA SILQ) 450 ML PO ONE; +CATHETER FLUSH 10 ML SYR IV PRN; -GEMCITABINE HCL 1 GM, GEMCITABINE HCL 300 MG in NS (IVPB) CANCER CENTER 100 ML IV SCH; +HOLD METFORMIN - RECEIVED CONTRAST 20 ML VIAL IV SCH; +IOHEXOL 350 MG/ML 100 ML (OMNIPAQUE 350) VIAL IV ONE; +NS 100 ML (IVPB) BAG IV ONE; -NS IV 1000 ML (CANCER CTR) IV SCH; -NS IV 500 ML (CANCER CENTER) 500 ML ONE; -ONDANSETRON MDV (CANCER CENTER 16 MG, DEXAMETHASONE INJECTION 10 MG in NS (IVPB) CANCER... IV SCH; -ONDANSETRON MDV (CANCER CENTER 8 MG, DEXAMETHASONE INJ (CANCER CTR) 4 MG in NS (IVPB) C... IV SCH; -ONDANSETRON MDV (CANCER CENTER 8 MG, DEXAMETHASONE INJECTION 10 MG in NS (IVPB) CANCER ... IV SCH; -PACLitaxel PROTEIN 130 MG in EMPTY IV BAG (PVC) CANCER CTR 1 EA IV SCH
--- NOTE | 2019-04-06 11:53 | Diagnostic Imaging Report ---
PROCEDURE: CT chest with contrast, CT abdomen and pelvis with and without contrast. TECHNIQUE: Pre and post intravenous contrast axial imaging of the abdomen and pelvis and post contrast axial imaging of the chest were performed. Auto Exposure Controls were utilized during the CT exam to meet ALARA standards for radiation dose reduction. INDICATION: Lung cancer. COMPARISON: Study compared with 01/11/2019. FINDINGS: Chest: Five-lobed chronic interstitial lung disease is a redemonstrated finding. Adjacent to a cyst in the right upper lobe anteriorly, a somewhat spiculated mass measured 1.4 cm; not substantially changed. The perifissural nodule along the right minor is 1.3 x 0.7 cm, previously 1.7 x 0.9 cm. Several additional scattered foci of pulmonary nodules throughout both lungs showed little, if any, interval change. No definite disease progression and there is no thoracic lymphadenopathy. A lytic lesion in the left ninth rib posteriorly is a redemonstrated finding. No new suspicious bony pathology. Abdomen and pelvis: A low-density but solid mass in the lateral sector of the left hepatic lobe today is 2.5 cm long axis, previously 3.4 cm. The left lobe mass lateral to the gastric fundus is 2.2 cm. That mass was not clearly apparent on the prior exam. A few additional hepatic nodules appeared similar or increased from prior. A simple cyst in the left lobe near the dome is chronic. Spleen is unremarkable. Left suprarenal retroperitoneal mass is 1.9 cm in long axis, unchanged. The spleen itself is unremarkable. The right adrenal is negative. Pancreas is negative. Kidneys are unobstructed. There is no bowel obstruction. No suspicious abdominopelvic bony lesion. IMPRESSION: Findings of multifocal pulmonary and hepatic metastases showed mixed interval change from prior. Lytic bone metastasis in the left ninth rib is unchanged. In aggregate, no substantial change from prior in the disease burden. Dictated on workstation # [id number]
--- NOTE | 2019-04-06 15:34 | Diagnostic Imaging Report ---
INDICATION: Lung cancer. TECHNIQUE: The patient was administered 26.5 mCi technetium 99m MDP intravenously and whole-body imaging was performed after a 3 hour delay. CORRELATION is made with prior bone scan from 01/11/2019. FINDINGS: Previously noted focus of abnormal uptake involving the left posterior proximal 9th rib is again noted and unchanged. No new foci of tracer accumulation is seen. There is physiologic uptake by both kidneys with excretion into the urinary bladder. IMPRESSION: Stable whole body bone scan when compared with exam from 01/11/2019. Dictated by: Dictated on workstation # [id number]
== END ==
LOC: CARD 10:26
PROVIDERS: ATTEND Nurse Practitioner Adult Health
DX: C34.90 Malignant neoplasm of unspecified part of unspecified bronchus or lung (principal); C79.51 Secondary malignant neoplasm of bone; C79.31 Secondary malignant neoplasm of brain
CPT/HCPCS: 71260; 74178; 78306

== ENCOUNTER → 2019-05-21 | Outpatient (CLI) | payer MEDICAID ==
[~2019-05-21] MED LIST changes: -BARIUM SUSPENSION 2.1% (VANILLA SILQ) 450 ML PO ONE; -CATHETER FLUSH 10 ML SYR IV PRN; -HOLD METFORMIN - RECEIVED CONTRAST 20 ML VIAL IV SCH; -IOHEXOL 350 MG/ML 100 ML (OMNIPAQUE 350) VIAL IV ONE; -NS 100 ML (IVPB) BAG IV ONE
--- NOTE | 2019-05-21 08:52 | Diagnostic Imaging Report ---
INDICATION: Lung cancer PA and lateral chest Right IJ Port-A-Cath tip projects over the SVC. There is interstitial fibrotic change in both lungs. There is no effusion or pneumothorax. IMPRESSION: Coarse reticulonodular interstitial fibrosis. No change compared to 02/27/2019. Dictated by: Dictated on workstation # [id number]
== END ==
LOC: RAD 08:33
PROVIDERS: ATTEND Nurse Practitioner Adult Health
DX: C34.81 Malignant neoplasm of overlapping sites of right bronchus and lung (principal); C79.51 Secondary malignant neoplasm of bone; C79.31 Secondary malignant neoplasm of brain; J84.10 Pulmonary fibrosis, unspecified; Z95.828 Presence of other vascular implants and grafts
CPT/HCPCS: 71046

== ENCOUNTER → 2019-05-29 | Outpatient (CLI) | payer MEDICAID | LOC: LAB 09:01 | PROVIDERS: ATTEND Internal Medicine Endocrinology, Diabetes & Metabolism | DX: E05.00 Thyrotoxicosis with diffuse goiter without thyrotoxic crisis or storm (principal) | CPT/HCPCS: 36415; 84443 ==

== ENCOUNTER → 2019-07-02 | Outpatient (RCR) | payer MEDICAID ==
[2019-04-03 09:03] LABS: BASOPHILS % (AUTO) 1 % (0-10); EOSINOPHILS # (AUTO) 0.1 10^3/uL (0.0-0.3); EOSINOPHILS % (AUTO) 3 % (0-10); HEMATOCRIT 35 % (35-52); HEMOGLOBIN 11.8 G/DL (11.5-16.0); LYMPHOCYTES # (AUTO) 0.6 X 10^3 (1.0-4.0); LYMPHOCYTES % (AUTO) 18 % (12-44); MEAN CORPUSCULAR HEMOGLOBIN 30 PG (25-34); MEAN CORPUSCULAR HGB CONC 33 G/DL (32-36); MEAN CORPUSCULAR VOLUME 91 FL (80-99); MEAN PLATELET VOLUME 9.2 FL (7.4-10.4); MONOCYTES # (AUTO) 0.5 X 10^3 (0.0-1.0); MONOCYTES % (AUTO) 15 % (0-12); NEUTROPHILS # (AUTO) 2.3 X 10^3 (1.8-7.8); NEUTROPHILS % (AUTO) 64 % (42-75); PLATELET COUNT 125 10^3/uL (130-400); RED CELL DISTRIBUTION WIDTH 14.9 % (10.0-14.5); WHITE BLOOD COUNT 3.6 10^3/uL (4.3-11.0)
[2019-04-03 09:19] LABS: BUN/CREATININE RATIO 23; CALCIUM 8.9 MG/DL (8.5-10.1); CARBON DIOXIDE 24 MMOL/L (21-32); CHLORIDE 103 MMOL/L (98-107); CREATININE SERUM 0.79 MG/DL (0.60-1.30); GFR ESTIMATED > 60; GLUCOSE 88 MG/DL (70-105); POTASSIUM 4.1 MMOL/L (3.6-5.0); SODIUM 138 MMOL/L (135-145)
[2019-04-10 08:45] LABS: BASOPHILS % (AUTO) 0 % (0-10); EOSINOPHILS # (AUTO) 0.1 10^3/uL (0.0-0.3); EOSINOPHILS % (AUTO) 2 % (0-10); HEMATOCRIT 35 % (35-52); HEMOGLOBIN 11.6 G/DL (11.5-16.0); LYMPHOCYTES # (AUTO) 0.7 X 10^3 (1.0-4.0); LYMPHOCYTES % (AUTO) 12 % (12-44); MEAN CORPUSCULAR HEMOGLOBIN 30 PG (25-34); MEAN CORPUSCULAR HGB CONC 33 G/DL (32-36); MEAN CORPUSCULAR VOLUME 91 FL (80-99); MONOCYTES # (AUTO) 0.7 X 10^3 (0.0-1.0); MONOCYTES % (AUTO) 11 % (0-12); NEUTROPHILS # (AUTO) 4.5 X 10^3 (1.8-7.8); NEUTROPHILS % (AUTO) 75 % (42-75); PLATELET COUNT 198 10^3/uL (130-400); RED CELL DISTRIBUTION WIDTH 14.9 % (10.0-14.5)
[2019-04-10 08:59] LABS: ALANINE AMINOTRANSFERASE 12 U/L (0-55); ALBUMIN 4.2 GM/DL (3.2-4.5); ALKALINE PHOSPHATASE 93 U/L (40-136); BILIRUBIN,TOTAL 0.6 MG/DL (0.1-1.0); BUN/CREATININE RATIO 22; CALCIUM 8.7 MG/DL (8.5-10.1); CARBON DIOXIDE 25 MMOL/L (21-32); CHLORIDE 101 MMOL/L (98-107); CREATININE SERUM 0.79 MG/DL (0.60-1.30); GFR ESTIMATED > 60; GLUCOSE 128 MG/DL (70-105); POTASSIUM 3.8 MMOL/L (3.6-5.0); SODIUM 134 MMOL/L (135-145)
[2019-04-17 08:54] LABS: BASOPHILS % (AUTO) 0 % (0-10); EOSINOPHILS # (AUTO) 0.1 10^3/uL (0.0-0.3); EOSINOPHILS % (AUTO) 3 % (0-10); HEMATOCRIT 35 % (35-52); HEMOGLOBIN 11.3 G/DL (11.5-16.0); LYMPHOCYTES # (AUTO) 0.6 X 10^3 (1.0-4.0); LYMPHOCYTES % (AUTO) 16 % (12-44); MEAN CORPUSCULAR HEMOGLOBIN 30 PG (25-34); MEAN CORPUSCULAR HGB CONC 33 G/DL (32-36); MEAN CORPUSCULAR VOLUME 91 FL (80-99); MEAN PLATELET VOLUME 8.5 FL (7.4-10.4); MONOCYTES # (AUTO) 0.4 X 10^3 (0.0-1.0); MONOCYTES % (AUTO) 12 % (0-12); NEUTROPHILS # (AUTO) 2.5 X 10^3 (1.8-7.8); NEUTROPHILS % (AUTO) 69 % (42-75); PLATELET COUNT 169 10^3/uL (130-400); RED CELL DISTRIBUTION WIDTH 14.4 % (10.0-14.5); WHITE BLOOD COUNT 3.6 10^3/uL (4.3-11.0)
[2019-04-17 09:08] LABS: BUN/CREATININE RATIO 21; CALCIUM 8.8 MG/DL (8.5-10.1); CARBON DIOXIDE 22 MMOL/L (21-32); CHLORIDE 103 MMOL/L (98-107); GFR ESTIMATED > 60; GLUCOSE 128 MG/DL (70-105); POTASSIUM 3.6 MMOL/L (3.6-5.0); SODIUM 138 MMOL/L (135-145)
[2019-04-24 09:01] LABS: BASOPHILS % (AUTO) 1 % (0-10); EOSINOPHILS # (AUTO) 0.1 10^3/uL (0.0-0.3); EOSINOPHILS % (AUTO) 2 % (0-10); HEMATOCRIT 35 % (35-52); HEMOGLOBIN 11.8 G/DL (11.5-16.0); LYMPHOCYTES # (AUTO) 0.6 X 10^3 (1.0-4.0); LYMPHOCYTES % (AUTO) 16 % (12-44); MEAN CORPUSCULAR HEMOGLOBIN 31 PG (25-34); MEAN CORPUSCULAR HGB CONC 33 G/DL (32-36); MEAN CORPUSCULAR VOLUME 91 FL (80-99); MEAN PLATELET VOLUME 9.6 FL (7.4-10.4); MONOCYTES # (AUTO) 0.5 X 10^3 (0.0-1.0); MONOCYTES % (AUTO) 14 % (0-12); NEUTROPHILS # (AUTO) 2.6 X 10^3 (1.8-7.8); NEUTROPHILS % (AUTO) 68 % (42-75); PLATELET COUNT 106 10^3/uL (130-400); WHITE BLOOD COUNT 3.9 10^3/uL (4.3-11.0)
[2019-04-24 09:20] LABS: BUN/CREATININE RATIO 23; CALCIUM 8.7 MG/DL (8.5-10.1); CARBON DIOXIDE 26 MMOL/L (21-32); CHLORIDE 101 MMOL/L (98-107); CREATININE SERUM 0.81 MG/DL (0.60-1.30); GFR ESTIMATED > 60; GLUCOSE 117 MG/DL (70-105); POTASSIUM 3.6 MMOL/L (3.6-5.0); SODIUM 137 MMOL/L (135-145)
[2019-05-01 09:02] LABS: BASOPHILS % (AUTO) 1 % (0-10); EOSINOPHILS # (AUTO) 0.1 10^3/uL (0.0-0.3); EOSINOPHILS % (AUTO) 2 % (0-10); HEMATOCRIT 35 % (35-52); HEMOGLOBIN 11.6 G/DL (11.5-16.0); LYMPHOCYTES # (AUTO) 0.6 X 10^3 (1.0-4.0); LYMPHOCYTES % (AUTO) 12 % (12-44); MEAN CORPUSCULAR HEMOGLOBIN 30 PG (25-34); MEAN CORPUSCULAR HGB CONC 33 G/DL (32-36); MEAN CORPUSCULAR VOLUME 90 FL (80-99); MEAN PLATELET VOLUME 8.8 FL (7.4-10.4); MONOCYTES # (AUTO) 0.6 X 10^3 (0.0-1.0); MONOCYTES % (AUTO) 13 % (0-12); NEUTROPHILS # (AUTO) 3.6 X 10^3 (1.8-7.8); NEUTROPHILS % (AUTO) 73 % (42-75); PLATELET COUNT 205 10^3/uL (130-400); RED CELL DISTRIBUTION WIDTH 14.4 % (10.0-14.5)
[2019-05-01 09:26] LABS: ALANINE AMINOTRANSFERASE 11 U/L (0-55); ALBUMIN 4.2 GM/DL (3.2-4.5); ALKALINE PHOSPHATASE 87 U/L (40-136); BILIRUBIN,TOTAL 0.7 MG/DL (0.1-1.0); BUN/CREATININE RATIO 21; CALCIUM 8.9 MG/DL (8.5-10.1); CARBON DIOXIDE 23 MMOL/L (21-32); CHLORIDE 104 MMOL/L (98-107); CREATININE SERUM 0.81 MG/DL (0.60-1.30); GFR ESTIMATED > 60; GLUCOSE 114 MG/DL (70-105); POTASSIUM 3.6 MMOL/L (3.6-5.0); SODIUM 138 MMOL/L (135-145)
[2019-05-08 09:10] LABS: BASOPHILS % (AUTO) 0 % (0-10); EOSINOPHILS # (AUTO) 0.1 10^3/uL (0.0-0.3); EOSINOPHILS % (AUTO) 3 % (0-10); HEMATOCRIT 36 % (35-52); HEMOGLOBIN 11.6 G/DL (11.5-16.0); LYMPHOCYTES # (AUTO) 0.7 X 10^3 (1.0-4.0); LYMPHOCYTES % (AUTO) 15 % (12-44); MEAN CORPUSCULAR HEMOGLOBIN 30 PG (25-34); MEAN CORPUSCULAR HGB CONC 33 G/DL (32-36); MEAN CORPUSCULAR VOLUME 91 FL (80-99); MEAN PLATELET VOLUME 8.7 FL (7.4-10.4); MONOCYTES # (AUTO) 0.5 X 10^3 (0.0-1.0); MONOCYTES % (AUTO) 10 % (0-12); NEUTROPHILS # (AUTO) 3.3 X 10^3 (1.8-7.8); NEUTROPHILS % (AUTO) 72 % (42-75); PLATELET COUNT 181 10^3/uL (130-400); WHITE BLOOD COUNT 4.6 10^3/uL (4.3-11.0)
[2019-05-08 09:30] LABS: BUN/CREATININE RATIO 20; CALCIUM 8.9 MG/DL (8.5-10.1); CARBON DIOXIDE 24 MMOL/L (21-32); CHLORIDE 101 MMOL/L (98-107); CREATININE SERUM 0.83 MG/DL (0.60-1.30); GFR ESTIMATED > 60; GLUCOSE 156 MG/DL (70-105); POTASSIUM 3.6 MMOL/L (3.6-5.0); SODIUM 135 MMOL/L (135-145)
[2019-05-15 09:16] LABS: BASOPHILS % (AUTO) 0 % (0-10); EOSINOPHILS # (AUTO) 0.2 10^3/uL (0.0-0.3); EOSINOPHILS % (AUTO) 2 % (0-10); HEMATOCRIT 36 % (35-52); HEMOGLOBIN 11.8 G/DL (11.5-16.0); LYMPHOCYTES # (AUTO) 0.7 X 10^3 (1.0-4.0); LYMPHOCYTES % (AUTO) 8 % (12-44); MEAN CORPUSCULAR HEMOGLOBIN 31 PG (25-34); MEAN CORPUSCULAR HGB CONC 33 G/DL (32-36); MEAN CORPUSCULAR VOLUME 92 FL (80-99); MEAN PLATELET VOLUME 9.2 FL (7.4-10.4); MONOCYTES # (AUTO) 0.6 X 10^3 (0.0-1.0); MONOCYTES % (AUTO) 7 % (0-12); NEUTROPHILS % (AUTO) 84 % (42-75); PLATELET COUNT 105 10^3/uL (130-400); WHITE BLOOD COUNT 9.5 10^3/uL (4.3-11.0)
[2019-05-15 09:40] LABS: CALCIUM 9.3 MG/DL (8.5-10.1); CREATININE SERUM 0.92 MG/DL (0.60-1.30); POTASSIUM 4.3 MMOL/L (3.6-5.0)
[2019-05-21 09:57] LABS: BASOPHILS % (AUTO) 0 % (0-10); EOSINOPHILS # (AUTO) 0.1 10^3/uL (0.0-0.3); EOSINOPHILS % (AUTO) 1 % (0-10); HEMATOCRIT 34 % (35-52); HEMOGLOBIN 11.1 G/DL (11.5-16.0); LYMPHOCYTES # (AUTO) 0.8 X 10^3 (1.0-4.0); LYMPHOCYTES % (AUTO) 6 % (12-44); MEAN CORPUSCULAR HEMOGLOBIN 30 PG (25-34); MEAN CORPUSCULAR HGB CONC 33 G/DL (32-36); MEAN CORPUSCULAR VOLUME 92 FL (80-99); MEAN PLATELET VOLUME 8.8 FL (7.4-10.4); MONOCYTES # (AUTO) 1.1 X 10^3 (0.0-1.0); MONOCYTES % (AUTO) 9 % (0-12); NEUTROPHILS # (AUTO) 10.3 X 10^3 (1.8-7.8); NEUTROPHILS % (AUTO) 83 % (42-75); PLATELET COUNT 186 10^3/uL (130-400); RED CELL DISTRIBUTION WIDTH 13.9 % (10.0-14.5); WHITE BLOOD COUNT 12.4 10^3/uL (4.3-11.0)
[2019-05-21 10:21] LABS: ALANINE AMINOTRANSFERASE 12 U/L (0-55); ALBUMIN 4.1 GM/DL (3.2-4.5); ALKALINE PHOSPHATASE 104 U/L (40-136); BILIRUBIN,TOTAL 0.5 MG/DL (0.1-1.0); BUN/CREATININE RATIO 21; CALCIUM 8.7 MG/DL (8.5-10.1); CARBON DIOXIDE 23 MMOL/L (21-32); CHLORIDE 100 MMOL/L (98-107); CREATININE SERUM 0.72 MG/DL (0.60-1.30); GFR ESTIMATED > 60; GLUCOSE 134 MG/DL (70-105); POTASSIUM 3.5 MMOL/L (3.6-5.0); SODIUM 133 MMOL/L (135-145); TOTAL PROTEIN 7.5 GM/DL (6.4-8.2)
[2019-05-29 09:04] LABS: BASOPHILS % (AUTO) 0 % (0-10); EOSINOPHILS # (AUTO) 0.2 10^3/uL (0.0-0.3); EOSINOPHILS % (AUTO) 2 % (0-10); HEMATOCRIT 34 % (35-52); HEMOGLOBIN 11.1 G/DL (11.5-16.0); LYMPHOCYTES # (AUTO) 0.8 X 10^3 (1.0-4.0); LYMPHOCYTES % (AUTO) 11 % (12-44); MEAN CORPUSCULAR HEMOGLOBIN 30 PG (25-34); MEAN CORPUSCULAR HGB CONC 33 G/DL (32-36); MEAN CORPUSCULAR VOLUME 92 FL (80-99); MEAN PLATELET VOLUME 8.7 FL (7.4-10.4); MONOCYTES # (AUTO) 0.8 X 10^3 (0.0-1.0); MONOCYTES % (AUTO) 11 % (0-12); NEUTROPHILS # (AUTO) 5.1 X 10^3 (1.8-7.8); NEUTROPHILS % (AUTO) 75 % (42-75); PLATELET COUNT 181 10^3/uL (130-400); RED CELL DISTRIBUTION WIDTH 13.8 % (10.0-14.5); WHITE BLOOD COUNT 6.8 10^3/uL (4.3-11.0)
[2019-05-29 09:33] LABS: BUN/CREATININE RATIO 20; CALCIUM 8.7 MG/DL (8.5-10.1); CARBON DIOXIDE 24 MMOL/L (21-32); CHLORIDE 101 MMOL/L (98-107); CREATININE SERUM 0.74 MG/DL (0.60-1.30); GFR ESTIMATED > 60; GLUCOSE 151 MG/DL (70-105); POTASSIUM 3.5 MMOL/L (3.6-5.0); SODIUM 136 MMOL/L (135-145)
[2019-06-05 09:43] LABS: BASOPHILS % (AUTO) 0 % (0-10); EOSINOPHILS # (AUTO) 0.2 10^3/uL (0.0-0.3); EOSINOPHILS % (AUTO) 4 % (0-10); HEMATOCRIT 34 % (35-52); LYMPHOCYTES # (AUTO) 0.6 X 10^3 (1.0-4.0); LYMPHOCYTES % (AUTO) 13 % (12-44); MEAN CORPUSCULAR HEMOGLOBIN 30 PG (25-34); MEAN CORPUSCULAR HGB CONC 33 G/DL (32-36); MEAN CORPUSCULAR VOLUME 93 FL (80-99); MEAN PLATELET VOLUME 9.6 FL (7.4-10.4); MONOCYTES # (AUTO) 0.5 X 10^3 (0.0-1.0); MONOCYTES % (AUTO) 12 % (0-12); NEUTROPHILS # (AUTO) 3.3 X 10^3 (1.8-7.8); NEUTROPHILS % (AUTO) 72 % (42-75); PLATELET COUNT 154 10^3/uL (130-400); RED CELL DISTRIBUTION WIDTH 13.9 % (10.0-14.5); WHITE BLOOD COUNT 4.6 10^3/uL (4.3-11.0)
[2019-06-05 10:00] LABS: BUN/CREATININE RATIO 24; CARBON DIOXIDE 24 MMOL/L (21-32); CHLORIDE 101 MMOL/L (98-107); CREATININE SERUM 0.78 MG/DL (0.60-1.30); GFR ESTIMATED > 60; GLUCOSE 135 MG/DL (70-105); POTASSIUM 3.9 MMOL/L (3.6-5.0); SODIUM 136 MMOL/L (135-145)
[2019-06-12 09:22] LABS: BASOPHILS % (AUTO) 0 % (0-10); EOSINOPHILS # (AUTO) 0.2 10^3/uL (0.0-0.3); EOSINOPHILS % (AUTO) 2 % (0-10); HEMATOCRIT 34 % (35-52); HEMOGLOBIN 11.5 G/DL (11.5-16.0); LYMPHOCYTES # (AUTO) 0.8 X 10^3 (1.0-4.0); LYMPHOCYTES % (AUTO) 8 % (12-44); MEAN CORPUSCULAR HEMOGLOBIN 31 PG (25-34); MEAN CORPUSCULAR HGB CONC 34 G/DL (32-36); MEAN CORPUSCULAR VOLUME 91 FL (80-99); MEAN PLATELET VOLUME 8.7 FL (7.4-10.4); MONOCYTES # (AUTO) 0.9 X 10^3 (0.0-1.0); MONOCYTES % (AUTO) 10 % (0-12); NEUTROPHILS # (AUTO) 7.3 X 10^3 (1.8-7.8); NEUTROPHILS % (AUTO) 80 % (42-75); PLATELET COUNT 208 10^3/uL (130-400); RED CELL DISTRIBUTION WIDTH 14.7 % (10.0-14.5); WHITE BLOOD COUNT 9.2 10^3/uL (4.3-11.0)
[2019-06-12 09:51] LABS: ALANINE AMINOTRANSFERASE 12 U/L (0-55); ALBUMIN 4.3 GM/DL (3.2-4.5); ALKALINE PHOSPHATASE 124 U/L (40-136); BILIRUBIN,TOTAL 0.7 MG/DL (0.1-1.0); BUN/CREATININE RATIO 21; CALCIUM 8.9 MG/DL (8.5-10.1); CARBON DIOXIDE 22 MMOL/L (21-32); CHLORIDE 102 MMOL/L (98-107); CREATININE SERUM 0.85 MG/DL (0.60-1.30); GFR ESTIMATED > 60; GLUCOSE 119 MG/DL (70-105); POTASSIUM 3.6 MMOL/L (3.6-5.0); SODIUM 136 MMOL/L (135-145); TOTAL PROTEIN 7.4 GM/DL (6.4-8.2)
[2019-06-18 09:07] LABS: BASOPHILS % (AUTO) 0 % (0-10); EOSINOPHILS # (AUTO) 0.1 10^3/uL (0.0-0.3); EOSINOPHILS % (AUTO) 1 % (0-10); HEMATOCRIT 34 % (35-52); HEMOGLOBIN 11.1 G/DL (11.5-16.0); LYMPHOCYTES # (AUTO) 0.6 X 10^3 (1.0-4.0); LYMPHOCYTES % (AUTO) 13 % (12-44); MEAN CORPUSCULAR HEMOGLOBIN 30 PG (25-34); MEAN CORPUSCULAR HGB CONC 33 G/DL (32-36); MEAN CORPUSCULAR VOLUME 92 FL (80-99); MONOCYTES # (AUTO) 0.3 X 10^3 (0.0-1.0); MONOCYTES % (AUTO) 7 % (0-12); NEUTROPHILS % (AUTO) 79 % (42-75); PLATELET COUNT 185 10^3/uL (130-400); RED CELL DISTRIBUTION WIDTH 13.8 % (10.0-14.5); WHITE BLOOD COUNT 5.1 10^3/uL (4.3-11.0)
[2019-06-18 09:23] LABS: BUN/CREATININE RATIO 19; CALCIUM 8.8 MG/DL (8.5-10.1); CARBON DIOXIDE 22 MMOL/L (21-32); CHLORIDE 101 MMOL/L (98-107); CREATININE SERUM 0.79 MG/DL (0.60-1.30); GFR ESTIMATED > 60; GLUCOSE 162 MG/DL (70-105); POTASSIUM 3.7 MMOL/L (3.6-5.0); SODIUM 134 MMOL/L (135-145)
[2019-06-25 09:01] LABS: BASOPHILS % (AUTO) 1 % (0-10); EOSINOPHILS # (AUTO) 0.2 10^3/uL (0.0-0.3); EOSINOPHILS % (AUTO) 3 % (0-10); HEMATOCRIT 35 % (35-52); HEMOGLOBIN 11.7 G/DL (11.5-16.0); LYMPHOCYTES # (AUTO) 0.8 X 10^3 (1.0-4.0); LYMPHOCYTES % (AUTO) 15 % (12-44); MEAN CORPUSCULAR HEMOGLOBIN 31 PG (25-34); MEAN CORPUSCULAR HGB CONC 34 G/DL (32-36); MEAN CORPUSCULAR VOLUME 93 FL (80-99); MEAN PLATELET VOLUME 9.3 FL (7.4-10.4); MONOCYTES # (AUTO) 0.4 X 10^3 (0.0-1.0); MONOCYTES % (AUTO) 7 % (0-12); NEUTROPHILS # (AUTO) 3.6 X 10^3 (1.8-7.8); NEUTROPHILS % (AUTO) 73 % (42-75); PLATELET COUNT 96 10^3/uL (130-400); RED CELL DISTRIBUTION WIDTH 14.3 % (10.0-14.5)
[2019-06-25 09:16] LABS: BUN/CREATININE RATIO 20; CALCIUM 9.2 MG/DL (8.5-10.1); CARBON DIOXIDE 24 MMOL/L (21-32); CHLORIDE 100 MMOL/L (98-107); CREATININE SERUM 0.86 MG/DL (0.60-1.30); GFR ESTIMATED > 60; GLUCOSE 154 MG/DL (70-105); POTASSIUM 4.4 MMOL/L (3.6-5.0); SODIUM 136 MMOL/L (135-145)
[~2019-07-02] MED LIST changes: +GEMCITABINE HCL 1 GM, GEMCITABINE HCL 300 MG in NS (IVPB) CANCER CENTER 100 ML IV SCH; +NS IV 1000 ML (CANCER CTR) IV SCH; +NS IV 500 ML (CANCER CENTER) 500 ML ONE; +ONDANSETRON MDV (CANCER CENTER 8 MG, DEXAMETHASONE INJ (CANCER CTR) 4 MG in NS (IVPB) C... IV SCH
[2019-07-02 09:04] LABS: BASOPHILS % (AUTO) 0 % (0-10); EOSINOPHILS # (AUTO) 0.1 10^3/uL (0.0-0.3); EOSINOPHILS % (AUTO) 2 % (0-10); HEMATOCRIT 33 % (35-52); LYMPHOCYTES # (AUTO) 0.6 X 10^3 (1.0-4.0); LYMPHOCYTES % (AUTO) 8 % (12-44); MEAN CORPUSCULAR HEMOGLOBIN 31 PG (25-34); MEAN CORPUSCULAR HGB CONC 33 G/DL (32-36); MEAN CORPUSCULAR VOLUME 93 FL (80-99); MEAN PLATELET VOLUME 9.1 FL (7.4-10.4); MONOCYTES # (AUTO) 0.8 X 10^3 (0.0-1.0); MONOCYTES % (AUTO) 10 % (0-12); NEUTROPHILS # (AUTO) 5.9 X 10^3 (1.8-7.8); NEUTROPHILS % (AUTO) 80 % (42-75); PLATELET COUNT 197 10^3/uL (130-400); RED CELL DISTRIBUTION WIDTH 14.7 % (10.0-14.5); WHITE BLOOD COUNT 7.5 10^3/uL (4.3-11.0)
--- NOTE | 2019-07-02 09:06 | Diagnostic Imaging Report ---
Lung cancer, followup. Time of exam 8:52 AM Correlation is made with prior chest from 05/21/2019. Heart size is stable. Right hemidiaphragm remains elevated. Right chest wall port has tip overlying the SVC. Interstitial fibrotic changes in both lungs appears very similar to prior exam. No new or superimposed infiltrate is detected. There is no effusion or pneumothorax. Impression: Stable chest since exam from 05/21/2019. Dictated by: Dictated on workstation # [id number]
[2019-07-02 09:26] LABS: ALANINE AMINOTRANSFERASE 14 U/L (0-55); ALBUMIN 4.3 GM/DL (3.2-4.5); ALKALINE PHOSPHATASE 134 U/L (40-136); BILIRUBIN,TOTAL 0.6 MG/DL (0.1-1.0); BUN/CREATININE RATIO 22; CALCIUM 8.8 MG/DL (8.5-10.1); CARBON DIOXIDE 22 MMOL/L (21-32); CHLORIDE 101 MMOL/L (98-107); CREATININE SERUM 0.79 MG/DL (0.60-1.30); GFR ESTIMATED > 60; GLUCOSE 155 MG/DL (70-105); POTASSIUM 3.8 MMOL/L (3.6-5.0); SODIUM 135 MMOL/L (135-145); TOTAL PROTEIN 7.3 GM/DL (6.4-8.2)
== END | disposition home or self-care (01) ==
LOC: ONC 04-03 08:47
PROVIDERS: ATTEND Internal Medicine Hematology & Oncology
DX: Z51.11 Encounter for antineoplastic chemotherapy (principal); C34.11 Malignant neoplasm of upper lobe, right bronchus or lung; C79.51 Secondary malignant neoplasm of bone; C78.01 Secondary malignant neoplasm of right lung; C78.02 Secondary malignant neoplasm of left lung
CPT/HCPCS: 36415; 36591; 71046; 80048; 80053; 83615; 84443; 85025; 96375; 96413

== ENCOUNTER → 2019-07-24 | Outpatient (CLI) | payer MEDICAID ==
[~2019-07-24] MED LIST changes: +FURO20TA4 PO; -GEMCITABINE HCL 1 GM, GEMCITABINE HCL 300 MG in NS (IVPB) CANCER CENTER 100 ML IV SCH; +LORA10TA76 PO; -NS IV 1000 ML (CANCER CTR) IV SCH; -NS IV 500 ML (CANCER CENTER) 500 ML ONE; +OMEP-280 PO; -OMEP20CA13 PO; -ONDANSETRON MDV (CANCER CENTER 8 MG, DEXAMETHASONE INJ (CANCER CTR) 4 MG in NS (IVPB) C... IV SCH; +POTA10TA36 PO; +RT-ALBUINH INH
[2019-07-24 10:09] LABS: FREE T4 (FREE THYROXINE) 1.44 NG/DL (0.70-1.48)
== END ==
LOC: LAB 09:08
PROVIDERS: ATTEND Internal Medicine Endocrinology, Diabetes & Metabolism
DX: E03.2 Hypothyroidism due to medicaments and other exogenous substances (principal); E05.00 Thyrotoxicosis with diffuse goiter without thyrotoxic crisis or storm
CPT/HCPCS: 36415; 84439; 84443; 84480

== ENCOUNTER 2019-08-03 10:28 | Inpatient (IN) | payer MEDICAID ==
[~2019-08-03] VITALS: Ht 152 cm; Wt 71.4 kg
[2019-08-03] VITALS (11 sets, daily range): BP systolic 109–181; BP diastolic 58–82
[~2019-08-03 10:28] MED LIST changes: -GUAI400T71 PO; +GUAI400T86 PO; -OMEP-280 PO; +OMEP20CA18 PO
[2019-08-03] MEDS ORDERED: RT-ALBUTEROL/IPRATROPIUM 3 ML (DUONEB) VIAL INH ONE (11:00)
[2019-08-03 11:07] LABS: BILIRUBIN,URINE NEGATIVE (NEGATIVE); CLARITY,URINE SL CLOUDY; COLOR,URINE YELLOW; GLUCOSE, URINE (UA) NEGATIVE (NEGATIVE); KETONES,URINE NEGATIVE (NEGATIVE); LEUKOCYTE ESTERASE ,URINE NEGATIVE (NEGATIVE); NITRITE,URINE NEGATIVE (NEGATIVE); PROTEIN,URINE 2+ (NEGATIVE)
[2019-08-03 11:11] LABS: BASOPHILS % (AUTO) 0 % (0-10); EOSINOPHILS # (AUTO) 0.1 10^3/uL (0.0-0.3); EOSINOPHILS % (AUTO) 1 % (0-10); HEMATOCRIT 31 % (35-52); HEMOGLOBIN 10.4 G/DL (11.5-16.0); LYMPHOCYTES # (AUTO) 0.9 X 10^3 (1.0-4.0); LYMPHOCYTES % (AUTO) 4 % (12-44); MEAN CORPUSCULAR HEMOGLOBIN 30 PG (25-34); MEAN CORPUSCULAR HGB CONC 34 G/DL (32-36); MEAN CORPUSCULAR VOLUME 87 FL (80-99); MEAN PLATELET VOLUME 9.7 FL (7.4-10.4); MONOCYTES # (AUTO) 1.8 X 10^3 (0.0-1.0); MONOCYTES % (AUTO) 9 % (0-12); NEUTROPHILS # (AUTO) 17.4 X 10^3 (1.8-7.8); NEUTROPHILS % (AUTO) 86 % (42-75); PLATELET COUNT 258 10^3/uL (130-400); RED CELL DISTRIBUTION WIDTH 13.2 % (10.0-14.5); WHITE BLOOD COUNT 20.2 10^3/uL (4.3-11.0)
[2019-08-03 11:12] LABS: INR 1.2 (0.8-1.4); PROTHROMBIN TIME PATIENT 15.7 SEC (12.2-14.7)
[2019-08-03 11:23] LABS: ALANINE AMINOTRANSFERASE 18 U/L (0-55); ALBUMIN 3.6 GM/DL (3.2-4.5); ALKALINE PHOSPHATASE 229 U/L (40-136); BILIRUBIN,TOTAL 0.8 MG/DL (0.1-1.0); BUN/CREATININE RATIO 21; CALCIUM 8.4 MG/DL (8.5-10.1); CARBON DIOXIDE 25 MMOL/L (21-32); CHLORIDE 79 MMOL/L (98-107); CREATININE SERUM 0.62 MG/DL (0.60-1.30); GFR ESTIMATED > 60; GLUCOSE 120 MG/DL (70-105); POTASSIUM 3.6 MMOL/L (3.6-5.0); TOTAL PROTEIN 7.3 GM/DL (6.4-8.2)
[2019-08-03 11:25] LABS: SODIUM 116 MMOL/L (135-145)
[2019-08-03 11:27] LABS: BACTERIA,URINE NEGATIVE /HPF; RBC,URINE 25-50 /HPF; SQUAMOUS EPITHELIAL CELL,UR RARE /HPF; WBC,URINE RARE /HPF
--- NOTE | 2019-08-03 11:28 | ED General ---
General Chief Complaint: Respiratory Problems Stated Complaint: CONFUSION;AMS;TROUBLE URINATING Nursing Triage Note: pt to rm 7 with complaint of increasing weakness, soa, and confusion. pt was discharged from hospital on tuesday for pneumonia and uti. was sent home on po levaquin. per son, pt started with confusion this morning. Nursing Sepsis Screen: No Definite Risk Source of Information: Patient, Family, Sawdust Drier, Old Records Exam Limitations: Language Barrier History of Present Illness Date Seen by Provider: Aug 03, 2019 Time Seen by Provider: 10:35 Initial Comments This 74 year old woman presents to the ER with weakness, SOA and confusion worsening since being discharged from the hospital after treatment for pneumonia and UTI. She is presently being treated for non-small cell lung cancer by the [facility]. She takes Gemzar but has not had any for the past couple of weeks due to acute illness. Her son is the primary tree surgeon for her and states she is also held Lasix for the past couple of weeks due to her difficulty in getting up to go to the restroom. Consequently her lower extremity edema has worsened. She is afebrile but hypoxic. She has been requiring at least 2 L nasal cannula since being discharged from the hospital. Allergies and Home Medications Allergies Coded Allergies: carboplatin (Verified Allergy, Severe, 07/10/18) REACTION TO CARBOPLATIN Sulfa (Sulfonamide Antibiotics) (Verified Allergy, Mild, 02/04/18) Home Medications Acetaminophen 500 Mg Tablet, 1,000 MG PO TID, (Reported) Albuterol Sulfate 1 Puff Puff, 2 PUFF INH Q4H PRN for SHORTNESS OF BREATH, (Reported) Apixaban 2.5 Mg Tablet, 2.5 MG PO BID, (Reported) Furosemide 20 Mg Tablet, 20 MG PO MoWeFr, (Reported) Guaifenesin 400 Mg Tablet, 400 MG PO BID, (Reported) Levofloxacin 750 Mg Tablet, 750 MG PO DAILY Prescribed by: MANUEL CARVER on 07/31/19 1556 Levothyroxine Sodium 88 Mcg Tablet, 88 MCG PO DAILY, (Reported) Lisinopril 5 Mg Tablet, 5 MG PO HS, (Reported) Loratadine 10 Mg Tablet, 10 MG PO DAILY, (Reported) Omeprazole 20 Mg Capsule.dr, 20 MG PO DAILY, (Reported) Potassium Chloride 10 Meq Tab.er.prt, 10 MEQ PO BID, (Reported) Timolol Maleate 5 Ml Drops, 1 DROP OD BID, (Reported) Patient Home Medication List Home Medication List Reviewed: Yes Review of Systems Review of Systems Constitutional: see HPI, weakness EENTM: no symptoms reported Respiratory: see HPI Cardiovascular: see HPI Gastrointestinal: no symptoms reported Genitourinary: no symptoms reported : No Musculoskeletal: no symptoms reported Skin: no symptoms reported Psychiatric/Neurological: See HPI Hematologic/Lymphatic: No Symptoms Reported Past Hvqphai-Ohaqfi-Gzjiaq Hx Past Med/Social Hx: Reviewed Nursing Past Med/Soc Hx Patient Social History Alcohol Use: Denies Use Recreational Drug Use: No Smoking Status: Never a Smoker Recent Foreign Travel: No Contact w/Someone Who Travel: No Recent Infectious Disease Expo: No Recent Hopitalizations: No Immunizations Up To Date Tetanus Booster (TDap): Unknown Date of Pneumonia Vaccine: Apr 27, 2011 Date of Influenza Vaccine: Mar 28, 2019 Seasonal Allergies Seasonal Allergies: Yes Past Medical History Surgeries: Yes (MEDIASTINAL LYMPH NODE ) Hysterectomy, Thyroidectomy Respiratory: Yes (LUNG CA STAGE 4) Pneumonia Cardiac: Yes Deep Vein Thrombosis, Heart Murmur, Hypertension Neurological: Yes TIA Reproductive Disorders: No 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 Sexually Transmitted Disease: No HIV/AIDS: No Genitourinary: Yes UTI-Chronic Gastrointestinal: Yes Gastroesophageal Reflux, Liver Disease/Jaundice Musculoskeletal: No Endocrine: Yes HEENT: Yes Cataract, Macular Degeneration Cancer: Yes Lung (non-small cell, stage IV) Did You Recieve Any Treatments: Yes What Type of Treatment Did You: Radiation, Other Psychosocial: No Integumentary: No Blood Disorders: Yes (DVT'S) Adverse Reaction/Blood Tranf: No Family Medical History FH: breast cancer G8 SISTER Physical Exam-Suspected Sepsis Physical Exam Vital Signs Vital Signs - First Documented 08/03/19 08/03/19 10:30 16:11 Temp 36.9 Pulse 92 Resp 20 B/P (MAP) 181/82 (115) Pulse Ox 95 O2 Delivery Nasal Cannula O2 Flow Rate 3.00 FiO2 32 Capillary Refill : Less Than 3 Seconds Blood Pressure Mean: 115 Height, Weight, BMI Height: 5'4.00" Weight: 134lbs. 9.0oz. [id number]; 28.00 BMI Method:Estimated General Appearance: WD/WN, Moderate Distress (Appears dyspneic and uncomfortable) HEENT: PERRL/EOMI, Normal ENT Inspection Neck: Normal Inspection Respiratory: Lungs Clear, Normal Breath Sounds, No Accessory Muscle Use, Decreased Breath Sounds, Other (Accessory muscle use on expiration) Cardiovascular: No Edema, Systolic Murmur, Irregularly Irregular Gastrointestinal: Normal Bowel Sounds, Non Tender, Soft Back: Decreased Range of Motion Extremity: Non Tender, Swelling (Moderate pitting edema equal bilaterally) Neurologic/Psychiatric: No Motor/Sensory Deficits, Other (Confused) Skin: normal color, warm/dry Focused Exam Lactate Level 08/03/19 10:45: Lactic Acid Level 1.61 Lactic Acid Level Progress/Results/Core Measures Suspected Sepsis Recent Fever Within 48 Hours: No Infection Criteria Present: None New/Unexplained Altered Menta: No Sepsis Screen: No Definite Risk SIRS Temperature: Pulse: 92 Respiratory Rate: 20 Laboratory Tests 08/03/19 10:45: White Blood Count 20.2H Blood Pressure 181 /82 Mean: 115 08/03/19 10:45: Lactic Acid Level 1.61 Laboratory Tests 08/03/19 10:45: Creatinine 0.62, INR Comment 1.2, Platelet Count 258, Total Bilirubin 0.8 Results/Orders Lab Results Laboratory Tests Test 08/03/19 10:45 08/03/19 11:00 Range/Units White Blood Count 20.2 H 4.3-11.0 10^3/uL Red Blood Count 3.51 L 4.35-5.85 10^6/uL Hemoglobin 10.4 L 11.5-16.0 G/DL Hematocrit 31 L 35-52 % Mean Corpuscular Volume 87 80-99 FL Mean Corpuscular Hemoglobin 30 25-34 PG Mean Corpuscular Hemoglobin Concent 34 32-36 G/DL Red Cell Distribution Width 13.2 10.0-14.5 % Platelet Count 258 130-400 10^3/uL Mean Platelet Volume 9.7 7.4-10.4 FL Neutrophils (%) (Auto) 86 H 42-75 % Lymphocytes (%) (Auto) 4 L 12-44 % Monocytes (%) (Auto) 9 0-12 % Eosinophils (%) (Auto) 1 0-10 % Basophils (%) (Auto) 0 0-10 % Neutrophils # (Auto) 17.4 H 1.8-7.8 X 10^3 Lymphocytes # (Auto) 0.9 L 1.0-4.0 X 10^3 Monocytes # (Auto) 1.8 H 0.0-1.0 X 10^3 Eosinophils # (Auto) 0.1 0.0-0.3 10^3/uL Basophils # (Auto) 0.0 0.0-0.1 10^3/uL Neutrophils % (Manual) 75 % Lymphocytes % (Manual) 6 % Monocytes % (Manual) 9 % Eosinophils % (Manual) 0 % Basophils % (Manual) 0 % Band Neutrophils 10 % Anisocytosis SLIGHT Prothrombin Time 15.7 H 12.2-14.7 SEC INR Comment 1.2 0.8-1.4 Activated Partial Thromboplast Time 35 24-35 SEC Sodium Level 116 *L 135-145 MMOL/L Potassium Level 3.6 3.6-5.0 MMOL/L Chloride Level 79 L 98-107 MMOL/L Carbon Dioxide Level 25 21-32 MMOL/L Anion Gap 12 5-14 MMOL/L Blood Urea Nitrogen 13 7-18 MG/DL Creatinine 0.62 0.60-1.30 MG/DL Estimat Glomerular Filtration Rate > 60 BUN/Creatinine Ratio 21 Glucose Level 120 H 70-105 MG/DL Lactic Acid Level 1.61 0.50-2.00 MMOL/L Calcium Level 8.4 L 8.5-10.1 MG/DL Corrected Calcium 8.7 8.5-10.1 MG/DL Total Bilirubin 0.8 0.1-1.0 MG/DL Aspartate Amino Transf (AST/SGOT) 27 5-34 U/L Alanine Aminotransferase (ALT/SGPT) 18 0-55 U/L Alkaline Phosphatase 229 H 40-136 U/L C-Reactive Protein High Sensitivity 1.91 H 0.00-0.50 MG/DL B-Type Natriuretic Peptide 371.4 H <100.0 PG/ML Total Protein 7.3 6.4-8.2 GM/DL Albumin 3.6 3.2-4.5 GM/DL Urine Color YELLOW Urine Clarity SL CLOUDY Urine pH 7.0 5-9 Urine Specific [place] 1.025 H 1.016-1.022 Urine Protein 2+ H NEGATIVE Urine Glucose (UA) NEGATIVE NEGATIVE Urine Ketones NEGATIVE NEGATIVE Urine Nitrite NEGATIVE NEGATIVE Urine Bilirubin NEGATIVE NEGATIVE Urine Urobilinogen 1.0 < = 1.0 MG/DL Urine Leukocyte Esterase NEGATIVE NEGATIVE Urine RBC (Auto) 2+ H NEGATIVE Urine RBC 25-50 H /HPF Urine WBC RARE /HPF Urine Squamous Epithelial Cells RARE /HPF Urine Crystals NONE /LPF Urine Bacteria NEGATIVE /HPF Urine Casts NONE /LPF Urine Mucus SMALL H /LPF Urine Culture Indicated NO Micro Results Microbiology 08/03/19 Influenza Types A,B Antigen (DEMI) - Final, Complete My Orders Orders - TERESITA BEAN MD Cbc With Automated Diff (08/03/19 10:31) Comprehensive Metabolic Panel (08/03/19 10:31) Ed Iv/Invasive Line Start (08/03/19 10:31) Blood Culture (08/03/19 10:46) Urinalysis (08/03/19 10:46) Urine Culture (08/03/19 10:46) Protime With Inr (08/03/19 10:46) Partial Thromboplastin Time (08/03/19 10:46) Chest 1 View, Ap/Pa Only (08/03/19 10:46) Ed Iv/Invasive Line Start (08/03/19 10:46) Vital Signs Adult Sepsis Patie Q15M (08/03/19 10:46) O2 (08/03/19 10:46) Remove Rings In Anticipation O (08/03/19 10:46) Lactic Acid Analyzer (08/03/19 10:46) BNP (08/03/19 10:46) Albuterol/Ipra Inhalation Soln (Duoneb I (08/03/19 11:00) Svn Small Volume Nebulizer (08/03/19 10:46) Hs C Reactive Protein (08/03/19 10:48) Influenza A And B Antigens (08/03/19 11:16) Manual Differential (08/03/19 10:45) Piperacillin Sodium/Tazobactam (Zosyn Vi (08/03/19 12:00) Ct Head W Wo (08/03/19 12:15) Iohexol Injection (Omnipaque 350 Mg/Ml 1 (08/03/19 12:30) Received Contrast (Hold Metformin- Contr (08/03/19 12:30) Ns (Ivpb) (Sodium Chloride 0.9% Ivpb Bag (08/03/19 12:30) Ns Iv 1000 Ml (Sodium Chloride 0.9%) (08/03/19 12:45) Piperacillin Sodium/Tazobactam (Zosyn Vi (08/03/19 11:55) Ns (Ivpb) (Sodium Chloride 0.9% Ivpb Bag (08/03/19 11:56) Ns Iv 1000 Ml (Sodium Chloride 0.9%) (08/03/19 12:59) Medications Given in ED Current Medications Medications Dose Ordered Sig/José Route Start Time Stop Time Status Last Admin Dose Admin Albuterol/ Ipratropium 3 ml ONCE ONCE INH 08/03/19 11:00 08/03/19 11:01 DC 08/03/19 11:46 3 ML Iohexol 80 ml ONCE ONCE IV 08/03/19 12:30 08/03/19 12:31 DC 08/03/19 13:23 80 ML Piperacillin Sod/ Tazobactam Sod 4.5 gm STK-MED ONCE IV 08/03/19 11:55 08/03/19 13:11 DC 08/03/19 15:27 4.5 GM Piperacillin Sod/ Tazobactam Sod 4.5 gm/Sodium Chloride 100 ml @ 200 mls/hr ONCE ONCE IV 08/03/19 12:00 08/03/19 12:29 DC 08/03/19 11:55 200 MLS/HR Sodium Chloride 100 ml ONCE ONCE IV 08/03/19 12:30 08/03/19 12:31 DC 08/03/19 13:23 80 ML Sodium Chloride 100 ml @ ud STK-MED ONCE .ROUTE 08/03/19 11:56 08/03/19 13:11 DC 08/03/19 15:27 100 MLS/HR Sodium Chloride 1,000 ml @ 150 mls/hr Q6H40M ONCE IV 08/03/19 12:45 08/03/19 14:34 DC 08/03/19 13:20 150 MLS/HR Vital Signs/I&O 08/03/19 08/03/19 08/03/19 08/03/19 10:30 11:00 11:46 14:05 Temp 36.9 Pulse 92 86 Resp 20 18 B/P (MAP) 181/82 (115) 134/64 Pulse Ox 95 93 96 94 O2 Delivery Nasal Cannula Nasal Cannula Nasal Cannula Nasal Cannula O2 Flow Rate 3.00 3.00 3.00 3.00 08/03/19 08/03/19 08/03/19 08/03/19 14:07 14:20 15:00 15:11 Temp 36.2 Pulse 85 76 86 Resp 21 18 B/P (MAP) 135/65 (88) 109/62 (78) Pulse Ox 96 93 97 O2 Delivery Nasal Cannula Nasal Cannula Nasal Cannula O2 Flow Rate 3.00 2.00 2.00 08/03/19 08/03/19 08/03/19 08/03/19 16:00 16:00 16:00 16:11 Temp 36.6 36.9 Pulse 72 92 Resp 29 B/P (MAP) 134/63 (86) Pulse Ox 96 95 O2 Delivery Nasal Cannula Nasal Cannula O2 Flow Rate 3.00 2.00 FiO2 32 08/03/19 08/03/19 08/03/19 08/03/19 17:00 18:00 19:15 19:15 Temp 37.1 37.1 Pulse 68 70 Resp 30 15 B/P (MAP) 125/66 (85) 127/63 (84) Pulse Ox 96 97 O2 Delivery Nasal Cannula Nasal Cannula O2 Flow Rate 2.00 2.00 Capillary Refill : Less Than 3 Seconds Blood Pressure Mean: 115 Progress Note : Progress Note Patient's labs revealed hyponatremia which is likely a primary cause of the altered mental status. Case was discussed with Dr. Hennessy who requested CT scan of the head to evaluate for possible metastatic disease contributing to confusion. CT revealed some questionable findings of mass. This was communicated to the inpatient care team. The persistent presence of pneumonia cannot be completely ruled out. Zosyn was continued for further antibiotic therapy. IV fluids were initiated with normal saline to start correcting the hyponatremia. This will be accompanied by small dose of Lasix to continue to encourage removal of the excess fluid. ECG Initial ECG Impression Date: Aug 03, 2019 Initial ECG Impression Time: 10:47 Initial ECG Rate: 77 Initial ECG Rhythm: Normal Sinus Comment Normal sinus rhythm with no ST elevation. Nondiagnostic minimal ST depression in the anterior lateral leads. No axis deviation. Nonspecific intraventricular conduction delay. Diagnostic Imaging Diagonstic Imaging: CT Plain Films/CT/US/NM/MRI: head Comments CT head viewed by me and report reviewed. See report below: NAME: CLARITZA KELLY [facility] REC#: [id number] PT STATUS: ADM IN : 1945 PHYSICIAN: TERESITA BEAN MD ADMIT DATE: 08/03/19/ICU Draft Date of Exam:08/03/19 CT HEAD W WO INDICATION: Confusion. History of cancer. TECHNIQUE: Routine pre and postcontrast-enhanced axial images were obtained from the skull base to the vertex. Auto Exposure Controls were utilized during the CT exam to meet ALARA standards for radiation dose reduction COMPARISON: 02/04/2018 FINDINGS: The ventricles and cortical sulci are diffusely prominent, compatible with age-related volume loss. There are confluent areas of abnormal, low attenuation in the periventricular white matter. This is consistent with chronic small vessel ischemic changes. Old small subinsular lacunar infarct is noted on the left. Evaluation of the postcontrast images show areas of suspicious enhancement within the bilateral cerebellar hemispheres. On the right, there are two subtle areas of abnormal spherical enhancement. These measure approximately 9 and 4 mm in diameter (images 5, series 3 and 46, series 601). On the left, there is a 1 cm area of patchy irregular enhancement (images 6, series 3). These are new when compared to 02/04/2018. There is no midline shift or mass-effect. No acute intra-axial hemorrhage is seen. There are no abnormal areas of increased or decreased density to suggest acute hemorrhage or edema. No extra-axial masses or collections are present. Evaluation of the bony calvarium shows new large lytic lesion posterosuperiorly on the left. It measures 2.6 x 2.5 cm. The visualized paranasal sinuses are unremarkable. The mastoid air cells are clear. IMPRESSION: 1. New suspicious areas of intraparenchymal enhancement of the bilateral cerebellar hemispheres concerning for metastatic disease. Correlation with postcontrast MRI is recommended. 2. No evidence of acute infarct or intracranial hemorrhage. 3. Background age-related parenchymal volume loss and old small left subinsular lacunar infarct. 4. New lytic lesion of the superior calvarium on the left also concerning for metastatic disease. Dictated on workstation # [id number] Dict: 08/03/19 1334 Trans: 08/03/19 1341 [facility] [id number] Interpreted by: CITLALI HESTER MD Diagonstic Imaging: Xray Plain Films/CT/US/NM/MRI: chest Comments NAME: CLARITZA KELLY [facility] REC#: [id number] PT STATUS: ADM IN : 1945 PHYSICIAN: TERESITA BEAN MD ADMIT DATE: 08/03/19/ICU Signed Date of Exam:08/03/19 CHEST 1 VIEW, AP/PA ONLY INDICATION: High blood pressure. TIME OF EXAMINATION: 11:22 AM. COMPARISON: 07/30/2019. FINDINGS: The right chest wall port has its tip at the SVC/right atrial junction. The right hemidiaphragm is chronically elevated. Diffuse bilateral pulmonary infiltrates persist; however, there is some improvement on the right with some partial clearing of infiltrate in the right upper lobe. No effusion or pneumothorax is seen. IMPRESSION: Bilateral pulmonary infiltrates, improved in the right upper lobe when compared to the examination of 4 days earlier. Dictated by: Dictated on workstation # [id number] Dict: 08/03/19 1158 Trans: 08/03/19 1535 [id number] Interpreted by: SCHUYLER DEUTSCH MD Electronically signed by: SCHUYLER DEUTSCH MD 08/03/19 1535 Departure Communication (Admissions) Time/Spoke to Admitting Phy: 12:15 Dr. Veda Wick at 12:15 Dr. Metz at 12:20 Dr. Boo at 12:30 Impression Primary Impression: Hyponatremia Additional Impressions: Confusion Metastatic primary lung cancer Qualified Codes: C34.90 - Malignant neoplasm of unspecified part of unspecified bronchus or lung Pneumonia Qualified Codes: J18.9 - Pneumonia, unspecified organism Disposition: ADMITTED INPATIENT Condition: Improved Admissions Decision to Admit Reason: Admit from ER (General) Decision to Admit/Date: Aug 03, 2019 Time/Decision to Admit Time: 10:40 Departure-Patient Inst. Referrals: [facility] (PCP) Primary Care Physician KASI MYERS CAFE HELPER (Family) Primary Care Physician TERESITA BEAN MD Aug 03, 2019 11:28
[2019-08-03 11:52] LABS: ANISOCYTOSIS SLIGHT; BAND NEUTROPHILS 10 %; BASOPHILS % (MANUAL) 0 %; EOSINOPHILS % (MANUAL) 0 %; LYMPHOCYTES % (MANUAL) 6 %; MONOCYTES % (MANUAL) 9 %; NEUTROPHILS % (MANUAL) 75 %
[2019-08-03] MEDS: PIPERACILLIN SODIUM/TAZOBACTAM 4.5 GM in NS (IVPB) 100 ML IV ONE ×2 (11:55→12:06)
[2019-08-03] MEDS ORDERED: PIPERACILLIN/TAZO 4.5 GM VIAL (ZOSYN) IV ONE (11:55)
[2019-08-03] MEDS ORDERED: NS (IVPB) 100 ML ONE (11:56)
[2019-08-03] MEDS ORDERED: HOLD METFORMIN - RECEIVED CONTRAST 20 ML VIAL IV SCH (12:30)
[2019-08-03] MEDS ORDERED: IOHEXOL 350 MG/ML 100 ML (OMNIPAQUE 350) VIAL IV ONE (12:30)
[2019-08-03] MEDS ORDERED: NS 100 ML (IVPB) BAG IV ONE (12:30)
[2019-08-03] MEDS ORDERED: NS IV 1000 ML 1,000 ML IV ONE (12:45)
[2019-08-03] MEDS ORDERED: NS IV 1000 ML 1,000 ML ONE (12:59)
--- NOTE | 2019-08-03 13:10 | Diagnostic Imaging Report ---
INDICATION: High blood pressure. TIME OF EXAMINATION: 11:22 AM. COMPARISON: 07/30/2019. FINDINGS: The right chest wall port has its tip at the SVC/right atrial junction. The right hemidiaphragm is chronically elevated. Diffuse bilateral pulmonary infiltrates persist; however, there is some improvement on the right with some partial clearing of infiltrate in the right upper lobe. No effusion or pneumothorax is seen. IMPRESSION: Bilateral pulmonary infiltrates, improved in the right upper lobe when compared to the examination of 4 days earlier. Dictated by: Dictated on workstation # [id number]
--- NOTE | 2019-08-03 13:52 | Diagnostic Imaging Report ---
INDICATION: Confusion. History of cancer. TECHNIQUE: Routine pre and postcontrast-enhanced axial images were obtained from the skull base to the vertex. Auto Exposure Controls were utilized during the CT exam to meet ALARA standards for radiation dose reduction COMPARISON: 02/04/2018 FINDINGS: The ventricles and cortical sulci are diffusely prominent, compatible with age-related volume loss. There are confluent areas of abnormal, low attenuation in the periventricular white matter. This is consistent with chronic small vessel ischemic changes. Old small subinsular lacunar infarct is noted on the left. Evaluation of the postcontrast images show areas of suspicious enhancement within the bilateral cerebellar hemispheres. On the right, there are two subtle areas of abnormal spherical enhancement. These measure approximately 9 and 4 mm in diameter (images 5, series 3 and 46, series 601). On the left, there is a 1 cm area of patchy irregular enhancement (images 6, series 3). These are new when compared to 02/04/2018. There is no midline shift or mass-effect. No acute intra-axial hemorrhage is seen. There are no abnormal areas of increased or decreased density to suggest acute hemorrhage or edema. No extra-axial masses or collections are present. Evaluation of the bony calvarium shows new large lytic lesion posterosuperiorly on the left. It measures 2.6 x 2.5 cm. The visualized paranasal sinuses are unremarkable. The mastoid air cells are clear. IMPRESSION: 1. New suspicious areas of intraparenchymal enhancement of the bilateral cerebellar hemispheres concerning for metastatic disease. Correlation with postcontrast MRI is recommended. 2. No evidence of acute infarct or intracranial hemorrhage. 3. Background age-related parenchymal volume loss and old small left subinsular lacunar infarct. 4. New lytic lesion of the superior calvarium on the left also concerning for metastatic disease. Dictated by: Dictated on workstation # [id number]
--- NOTE | 2019-08-03 14:15 | Consultation-Cardiology ---
HPI-Cardiology Cardiology Consultation: Date of Consultation 08/03/19 Time Seen by a Provider: 14:15 Date of Admission 08-03-2019 Attending Physician Christi Parikh DO Admitting Physician [place] Consulting Physician Joce Boo MD Primary Felt Pad Cutter: Dr. Em HPI: Chief Complaint: LE swelling Ms. Mariano Stein is 74 year old female who has been admitted to ICU 10 from the ED. Her son is at the bedside and is interpreting for us. He states she was released from [facility] last week, at which time she was being treated for pneumonia. He reports she was given IVF for several days. She improved and was discharged home. He reports she typically takes Lasix 20mg --, but because she was gene rally weak and it was difficult for her to get out of be he had withheld her Lasix. He reports she has bilat LE swelling, but it became progressively worse. She has increased SOB and so they came to the ED. She has not reported any CP or palpitations. She is lethargic, but does awaken easily. The son reports her oxygen sats at home have been low and she has been using oxygen PRN. She goes by Nelly. Review of Systems-Cardiology Review of Systems Constitutional: malaise Eyes: No vision change Ears/Nose/Throat: No recent hearing loss Respiratory: As described under HPI Cardiovascular: As described under HPI Genitourinary: no symptoms reported : No Musculoskeletal: no symptoms reported Skin: No rash on exposed areas, No ulcerations on exposed areas Psychiatric/Neurological: No seizure, No syncope Hematologic: No bleeding abnormalities Other comments ROS to the extent it could be obtained is as noted above and in HPI. Obtained with the assistance of her son. PXJ-Xdufpo-Veewlh Hx Patient Social History Alcohol Use: Denies Use Recreational Drug Use: No Smoking Status: Never a Smoker Recent Foreign Travel: No Recent Infectious Disease Expo: No Hospitalization with Isolation: Denies Immunizations Up To Date Tetanus Booster (TDap): Unknown Date of Pneumonia Vaccine: Apr 27, 2011 Date of Influenza Vaccine: Mar 28, 2019 Past Medical History PMH As described under Assessment. Family Medical History Family Medical History: Documented family h/o mother having CAD and HTN. Family History: FH: breast cancer G8 SISTER Allergies and Home Medications Allergies Coded Allergies: carboplatin (Verified Allergy, Severe, 07/10/18) REACTION TO CARBOPLATIN Sulfa (Sulfonamide Antibiotics) (Verified Allergy, Mild, 02/04/18) Home Medications Acetaminophen 500 Mg Tablet, 1,000 MG PO TID, (Reported) Albuterol Sulfate 1 Puff Puff, 2 PUFF INH Q4H PRN for SHORTNESS OF BREATH, (Reported) Albuterol Sulfate 2.5 Mg/0.5 Ml Vial.neb, 2.5 MG INH Q6H PRN for SHORTNESS OF BREATH, (Reported) Apixaban 5 Mg Tablet, 5 MG PO BID Prescribed by: CHRISTI PARIKH on 08/08/19 1128 Aspirin 325 Mg Tablet, 325 MG PO DAILY Prescribed by: CHRISTI PARIKH on 08/08/19 1128 Cefdinir 300 Mg Capsule, 300 MG PO BID Prescribed by: CHRISTI PARIKH on 08/08/19 1336 Furosemide 20 Mg Tablet, 20 MG PO MoWeFr, (Reported) Guaifenesin 400 Mg Tablet, 400 MG PO BID, (Reported) Levothyroxine Sodium 88 Mcg Tablet, 88 MCG PO DAILY, (Reported) Lisinopril 5 Mg Tablet, 5 MG PO HS, (Reported) Loratadine 10 Mg Tablet, 10 MG PO DAILY, (Reported) Omeprazole 20 Mg Capsule.dr, 20 MG PO DAILY, (Reported) Potassium Chloride 10 Meq Tab.er.prt, 10 MEQ PO BID, (Reported) Timolol Maleate 5 Ml Drops, 1 DROP OD BID, (Reported) Physical Exam-Cardiology Physical Exam Vital Signs/I&O Capillary Refill : Less Than 3 Seconds Constitutional: well-developed, well-nourished HEENT: hard of hearing Neck: No carotid bruit; carotid pulses are 2 + bilaterally Respiratory: chest expansion is symmetric, chest is bilaterally symmetric, crackles (bi-basilar) Cardiovascular: regular rate-rhythm; No JVD; S1 and S2, systolic murmur Gastrointestinal: soft, round, audible bowel sounds Extremities: other (Bilat pitting edema) Neurologic/Psychiatric: alert (oriented to self and place), other (moves extremities) Skin: No rash on exposed areas, No ulcerations on exposed areas Data Review Labs Microbiology 08/03/19 MRSA Screen - Final, Complete MRSA not isolated 08/03/19 Blood Culture - Final, Complete No growth 08/03/19 Urine Culture - Final, Complete NO GROWTH Radiology NAME: CLARITZA KELLY [facility] REC#: [id number] PT STATUS: ADM IN : 1945 PHYSICIAN: TERESITA BEAN MD ADMIT DATE: 08/03/19/ICU Draft Date of Exam:08/03/19 CHEST 1 VIEW, AP/PA ONLY INDICATION: High blood pressure. TIME OF EXAMINATION: 11:22 AM. COMPARISON: 07/30/2019. FINDINGS: The right chest wall port has its tip at the SVC/right atrial junction. The right hemidiaphragm is chronically elevated. Diffuse bilateral pulmonary infiltrates persist; however, there is some improvement on the right with some partial clearing of infiltrate in the right upper lobe. No effusion or pneumothorax is seen. IMPRESSION: Bilateral pulmonary infiltrates, improved in the right upper lobe when compared to the examination of 4 days earlier. Dictated on workstation # [id number] Dict: 08/03/19 1158 Trans: 08/03/19 1219 [id number] Interpreted by: SCHUYLER DEUTSCH MD Electronically signed by: NAME: CLARITZA KELLY [facility] REC#: [id number] PT STATUS: ADM IN : 1945 PHYSICIAN: TERESITA BEAN MD ADMIT DATE: 08/03/19/ICU Draft Date of Exam:08/03/19 CT HEAD W WO INDICATION: Confusion. History of cancer. TECHNIQUE: Routine pre and postcontrast-enhanced axial images were obtained from the skull base to the vertex. Auto Exposure Controls were utilized during the CT exam to meet ALARA standards for radiation dose reduction COMPARISON: 02/04/2018 FINDINGS: The ventricles and cortical sulci are diffusely prominent, compatible with age-related volume loss. There are confluent areas of abnormal, low attenuation in the periventricular white matter. This is consistent with chronic small vessel ischemic changes. Old small subinsular lacunar infarct is noted on the left. Evaluation of the postcontrast images show areas of suspicious enhancement within the bilateral cerebellar hemispheres. On the right, there are two subtle areas of abnormal spherical enhancement. These measure approximately 9 and 4 mm in diameter (images 5, series 3 and 46, series 601). On the left, there is a 1 cm area of patchy irregular enhancement (images 6, series 3). These are new when compared to 02/04/2018. There is no midline shift or mass-effect. No acute intra-axial hemorrhage is seen. There are no abnormal areas of increased or decreased density to suggest acute hemorrhage or edema. No extra-axial masses or collections are present. Evaluation of the bony calvarium shows new large lytic lesion posterosuperiorly on the left. It measures 2.6 x 2.5 cm. The visualized paranasal sinuses are unremarkable. The mastoid air cells are clear. IMPRESSION: 1. New suspicious areas of intraparenchymal enhancement of the bilateral cerebellar hemispheres concerning for metastatic disease. Correlation with postcontrast MRI is recommended. 2. No evidence of acute infarct or intracranial hemorrhage. 3. Background age-related parenchymal volume loss and old small left subinsular lacunar infarct. 4. New lytic lesion of the superior calvarium on the left also concerning for metastatic disease. Dictated on workstation # [id number] Dict: 08/03/19 1334 Trans: 08/03/19 1341 [facility] [id number] Interpreted by: CITLALI HESTER MD Electronically signed by: A/P-Cardiology Assessment/Admission Diagnosis Pneumonia - management per medical services Acute on chronic diastolic CHF Hyponatremia possibly secondary to SIADH d/t lung cancer/pneumonia or mild decompensated diastolic CHF CTA of the chest from 07-29-2019 showed - Small burden of pulmonary emboli to the subsegmental branches of the right lung. No evidence of right heart strain or p ulmonary infarct. Findings suggestive of disease progression with increase in size and number of lung nodules and increase in size of the metastatic lesions throughout the liver. Coronary artery disease, status post cardiac catheterization on October 16, [address] Em which showed mild disease nonobstructive disease with normal LV function, severe pulmonary hypertension Severe pulmonary hypertension, last echocardiogram was done on September 04, 2018 showing PA pressure 75-80 mmHg, normal left ventricular size and function with ejection fraction 55-65 percent, mild MR, AR, moderate to severe TR. Metastatic adenocarcinoma of the lung, stage IV, followed and managed by Dr. Wick History of DVT in 1975 OAC with Eliquis History of Graves' disease, followed and managed by primary care physician History of varicose vein stripping in 1976, venous study done November 2015 revealed left lower extremity with venous valvular insufficiency in the greater saphenous system at the SF changes below the knee with reflex time of greater than one second History of thyroidectomy 1980 Hysterectomy 1990 Cataract surgery 2004 Discussion and Recomendations Complex management Multi-factorial dyspnea likely secondary to acute on chronic diastolic CHF, pneumonia and lung cancer Treat with diuretics as indicated Continue home medications Management of hyponatremia per medical services Echocardiogram to eval LVEF Continue OAC with Eliquis Monitor lab closely Replace electrolytes as indicated Discussed plan of care with son, who is her DPOA Furthe recs will be based on her hospital course We would like to thank medical services for this consult Clinical Quality Measures DVT/VTE Risk/Contraindication: Risk Factor Score Per Nursin RFS Level Per Nursing on Admit: 4+=Very High ROGELIO HAIRSTON Aug 03, 2019 14:15
[2019-08-03] MEDS ORDERED: FUROSEMIDE 40 MG/4 ML INJ (LASIX) IV NR (14:35)
[2019-08-03] MEDS ORDERED: CATHETER FLUSH 10 ML SYR IV PRN (14:45)
[2019-08-03] MEDS ORDERED: ONDANSETRON 4 MG/2 ML (SDV) Z0FRAN IV PRN (14:45)
[2019-08-03] MEDS: NS IV 1000 ML 1,000 ML IV SCH ×3 (15:29→20:36)
[2019-08-03] MEDS ORDERED: FUROSEMIDE 40 MG/4 ML INJ (LASIX) IVP ONE (15:30)
--- NOTE | 2019-08-03 16:47 | Consultation-Cardiology ---
HPI-Cardiology Cardiology Consultation: Date of Consultation 08/03/19 Time Seen by a Provider: 15:50 Date of Admission Attending Physician Christi Mccollum DO Admitting Physician [place] Consulting Physician PUSHPA LORA MD, MA, FACP, FACC, [facility], CCDS Primary fruit pitter: Dr Em HPI: Chief Complaint: Reason for consultation: Generalized swelling HPI Ms. Mariano Stein is 74 year old female who has been admitted to ICU 10 from the ED. Her son is at the bedside and is interpreting for us. He states she was released from [facility] last week, at which time she was being treated for pneumonia. He reports she was given IVF for several days. She improved and was discharged home. He reports she typically takes Lasix 20mg M--, but because she was generally weak and it was difficult for her to get out of be he had withheld her Lasix. He reports she has bilat LE swelling, but it became progressively worse. She has increased SOB and so they came to the ED. She has not reported any CP or palpitations. She is lethargic, but does awaken easily. The son reports her oxygen sats at home have been low and she has been using oxygen PRN. She goes by Nelly. Review of Systems-Cardiology Review of Systems Constitutional: malaise Eyes: No vision change Ears/Nose/Throat: No recent hearing loss Respiratory: As described under HPI Cardiovascular: As described under HPI Genitourinary: no symptoms reported : No Musculoskeletal: no symptoms reported Skin: No rash on exposed areas, No ulcerations on exposed areas Psychiatric/Neurological: No seizure, No syncope Hematologic: No bleeding abnormalities QCF-Afvqaq-Bclvsg Hx Patient Social History Alcohol Use: Denies Use Recreational Drug Use: No Smoking Status: Never a Smoker Recent Foreign Travel: No Recent Infectious Disease Expo: No Hospitalization with Isolation: Denies Immunizations Up To Date Tetanus Booster (TDap): Unknown Date of Pneumonia Vaccine: Apr 27, 2011 Date of Influenza Vaccine: Mar 28, 2019 Past Medical History PMH As described under Assessment. Family Medical History Family Medical History: Documented family h/o mother having CAD and HTN. Family History: FH: breast cancer G8 SISTER Allergies and Home Medications Allergies Coded Allergies: carboplatin (Verified Allergy, Severe, 07/10/18) REACTION TO CARBOPLATIN Sulfa (Sulfonamide Antibiotics) (Verified Allergy, Mild, 02/04/18) Home Medications Acetaminophen 500 Mg Tablet, 1,000 MG PO TID, (Reported) Albuterol Sulfate 1 Puff Puff, 2 PUFF INH Q4H PRN for SHORTNESS OF BREATH, (Reported) Apixaban 2.5 Mg Tablet, 2.5 MG PO BID, (Reported) Furosemide 20 Mg Tablet, 20 MG PO MoWeFr, (Reported) Guaifenesin 400 Mg Tablet, 400 MG PO BID, (Reported) Levofloxacin 750 Mg Tablet, 750 MG PO DAILY Prescribed by: MANUEL CARVER on 07/31/19 6032 Levothyroxine Sodium 88 Mcg Tablet, 88 MCG PO DAILY, (Reported) Lisinopril 5 Mg Tablet, 5 MG PO HS, (Reported) Loratadine 10 Mg Tablet, 10 MG PO DAILY, (Reported) Omeprazole 20 Mg Capsule.dr, 20 MG PO DAILY, (Reported) Potassium Chloride 10 Meq Tab.er.prt, 10 MEQ PO BID, (Reported) Timolol Maleate 5 Ml Drops, 1 DROP OD BID, (Reported) Patient Home Medication List Home Medication List Reviewed: Yes Physical Exam-Cardiology Physical Exam Vital Signs/I&O 08/03/19 08/03/19 08/03/19 08/03/19 10:30 11:00 11:46 14:05 Temp 36.9 Pulse 92 86 Resp 20 18 B/P (MAP) 181/82 (115) 134/64 Pulse Ox 95 93 96 94 O2 Delivery Nasal Cannula Nasal Cannula Nasal Cannula Nasal Cannula O2 Flow Rate 3.00 3.00 3.00 3.00 08/03/19 08/03/19 08/03/19 08/03/19 14:07 14:20 15:00 15:11 Temp 36.2 Pulse 85 76 86 Resp 21 18 B/P (MAP) 135/65 (88) 109/62 (78) Pulse Ox 96 93 97 O2 Delivery Nasal Cannula Nasal Cannula Nasal Cannula O2 Flow Rate 3.00 2.00 2.00 08/03/19 16:11 Temp 36.9 Pulse 92 Pulse Ox 95 FiO2 32 Capillary Refill : Less Than 3 Seconds Constitutional: No AAO x 3; well-developed, well-nourished HEENT: hard of hearing Neck: No carotid bruit; carotid pulses are 2 + bilaterally Respiratory: chest expansion is symmetric, chest is bilaterally symmetric, crackles (bi-basilar) Cardiovascular: regular rate-rhythm; No JVD; S1 and S2, systolic murmur Gastrointestinal: soft, round, audible bowel sounds Extremities: other (Bilat pitting edema) Neurologic/Psychiatric: alert (oriented to self and place); No oriented x 3; other (moves extremities) Skin: No rash on exposed areas, No ulcerations on exposed areas Data Review Labs Laboratory Tests 08/03/19 10:45: White Blood Count 20.2H, Red Blood Count 3.51L, Hemoglobin 10.4L, Hematocrit 31L , Mean Corpuscular Volume 87, Mean Corpuscular Hemoglobin 30, Mean Corpuscular Hemoglobin Concent 34, Red Cell Distribution Width 13.2, Platelet Count 258, Mean Platelet Volume 9.7, Neutrophils (%) (Auto) 86H, Lymphocytes (%) (Auto) 4L, Monocytes (%) (Auto) 9, Eosinophils (%) (Auto) 1, Basophils (%) (Auto) 0, Neutro phils # (Auto) 17.4H, Lymphocytes # (Auto) 0.9L, Monocytes # (Auto) 1.8H, Eosinophils # (Auto) 0.1, Basophils # (Auto) 0.0, Neutrophils % (Manual) 75, Lymphocytes % (Manual) 6, Monocytes % (Manual) 9, Eosinophils % (Manual) 0, Basophils % (Manual) 0, Band Neutrophils 10, Anisocytosis SLIGHT, Prothrombin Time 15.7H, INR Comment 1.2, Activated Partial Thromboplast Time 35, Sodium Level 116*L, Potassium Level 3.6, Chloride Level 79L, Carbon Dioxide Level 25, Anion Gap 12, Blood Urea Nitrogen 13, Creatinine 0.62, Estimat Glomerular Filtration Rate > 60, BUN/Creatinine Ratio 21, Glucose Level 120H, Lactic Acid Level 1.61, Calcium Level 8.4L, Corrected Calcium 8.7, Total Bilirubin 0.8, Aspartate Amino Transf (AST/SGOT) 27, Alanine Aminotransferase (ALT/SGPT) 18, Alkaline Phosphatase 229H, C-Reactive Protein High Sensitivity 1.91H, B-Type Natriuretic Peptide 371.4H, Total Protein 7.3, Albumin 3.6 08/03/19 11:00: Urine Color YELLOW, Urine Clarity SL CLOUDY, Urine pH 7.0, Urine Specific [place] 1.025H, Urine Protein 2+H, Urine Glucose (UA) NEGATIVE, Urine Ketones NEGATIVE, Urine Nitrite NEGATIVE, Urine Bilirubin NEGATIVE, Urine Urobilinogen 1.0, Urine Leukocyte Esterase NEGATIVE, Urine RBC (Auto) 2+H, Urine RBC 25-50H, Urine WBC RARE, Urine Squamous Epithelial Cells RARE, Urine Crystals NONE, Urine Bacteria NEGATIVE, Urine Casts NONE, Urine Mucus SMALLH, Urine Culture Indicated NO Microbiology 08/03/19 Influenza Types A,B Antigen (DEMI) - Final, Complete Laboratory Tests 08/03/19 10:45 A/P-Cardiology Assessment/Admission Diagnosis Pneumonia - management per Med and Pulm Svce Acute on chronic diastolic CHF, mild Hyponatremia possibly secondary to SIADH d/t lung cancer and/or pneumonia CTA of the chest from 07-29-2019 showed - Small burden of pulmonary emboli to the subsegmental branches of the right lung. No evidence of right heart strain or pulmonary infarct. Findings suggestive of disease progression with increase in size and number of lung nodules and increase in size of the metastatic lesions throughout the liver. Coronary artery disease, status post cardiac catheterization on October 16, [address] Em which showed mild disease nonobstructive disease with normal LV function, severe pulmonary hypertension Severe pulmonary hypertension, echo of 08/03/19 showing RVSP 60 mmHg Echo of 08/03/19: LVEF 60-65 percent, mod TR, mild AI, RVSP 60 mmHg Metastatic adenocarcinoma of the lung, stage IV, followed and managed by Dr. Wick History of DVT in 1975 OAC with Eliquis History of Graves' disease, followed and managed by primary care physician History of varicose vein stripping in 1976, venous study done November 2015 revealed left lower extremity with venous valvular insufficiency in the greater saphenous system at the SF changes below the knee with reflex time of greater than one second History of thyroidectomy 1980 Hysterectomy 1990 Cataract surgery 2004 Discussion and Recomendations Complex management Multi-factorial dyspnea likely secondary to acute on chronic diastolic CHF, pneumonia and lung cancer Treat with diuretics if needed Continue home medications Management of hyponatremia is by the Med and ICU Svces Continue OAC with Eliquis Monitor lab closely Replace electrolytes as indicated Discussed plan of care with son, who is her DPOA FDC prognosis appears to be poor Further recs will be based on her hospital course We would like to thank Medical Services for this consult Clinical Quality Measures DVT/VTE Risk/Contraindication: Risk Factor Score Per Nursin RFS Level Per Nursing on Admit: 4+=Very High PUSHPA LORA MD FACP FAC CCDS Aug 03, 2019 16:47
[2019-08-03] MEDS ORDERED: RT-ALBUTEROL/IPRATROPIUM 3 ML (DUONEB) VIAL INH PRN (17:00)
--- NOTE | 2019-08-03 17:19 | History & Physical-Hospitalist ---
History of Present Illness HPI/Chief Complaint Chief complaint: Altered mental status History of present illness: This is a 74-year-old [place] female with [facility] who has a past medical history of adenocarcinoma lung cancer with metastasis to presented to the ER with altered mental status. Patient was found to have elevated white count in addition to very low sodium level 116 and evidence of new metastasis into the brain on CT scan. Patient is currently sleeping and significant delirium. We will place on fluid restriction in addition to gentle IV fluids. Patient is sleeping soundly and her is sleeping beside her so I do not disturb anyone. Source: patient, family, RN/MD Exam Limitations: clinical condition, language barrier Date Seen 08/03/19 Time Seen by a Provider: 17:40 Attending Physician Christi Mccollum DO [facility] Referring Physician Date of Admission Aug 03, 2019 at 12:45 Home Medications & Allergies Home Medications Reviewed patient Home Medication Reconciliation performed by pharmacy medication reconciliations blood bank laboratory technician and/or nursing. Patients Allergies have been reviewed. Allergies Allergies Coded Allergies carboplatin (Verified Allergy, Severe, 07/10/18) REACTION TO CARBOPLATIN Sulfa (Sulfonamide Antibiotics) (Verified Allergy, Mild, 02/04/18) Past Bznukex-Zcgneo-Cdyawd Hx Past Med/Social Hx: Reviewed Nursing Past Med/Soc Hx, Reviewed and Corrections made Patient Social History Marrital Status: Employed/Student: retired Alcohol Use: Denies Use Recreational Drug Use: No Smoking Status: Never a Smoker Recent Foreign Travel: No Contact w/other who traveled: No Recent Hopitalizations: No Recent Infectious Disease Expo: No Immunizations Up To Date Tetanus Booster (TDap): Unknown Date of Pneumonia Vaccine: Apr 27, 2011 Date of Influenza Vaccine: Mar 28, 2019 Seasonal Allergies Seasonal Allergies: Yes Past Medical History Surgeries: Hysterectomy, Thyroidectomy Cardiac: Deep Vein Thrombosis, Heart Murmur, Hypertension Neurological: TIA Reproductive: No Sexually Transmitted Disease: No HIV/AIDS: No Menopausal Genitourinary: UTI-Chronic Gastrointestinal: Gastroesophageal Reflux, Liver Disease/Jaundice HEENT: Cataract, Macular Degeneration Cancer: Lung (non-small cell, stage IV) Did You Recieve Any Treatments: Yes What Type of Treatment Did You: Radiation, Other History of Blood Disorders: Yes (DVT'S) Adverse Reaction to Blood Monzon: No Family History FH: breast cancer G8 SISTER Review of Systems Constitutional: see HPI Physical Exam Physical Exam Vital Signs Vital Signs - First Documented 08/03/19 08/03/19 10:30 16:11 Temp 36.9 Pulse 92 Resp 20 B/P (MAP) 181/82 (115) Pulse Ox 95 O2 Delivery Nasal Cannula O2 Flow Rate 3.00 FiO2 32 Capillary Refill : Less Than 3 Seconds Height, Weight, BMI Height: 5'4.00" Weight: 134lbs. 9.0oz. 61.256741oy; 28.00 BMI Method:Estimated General Appearance: Chronically ill, Other (Sleeping soundly) Respiratory: No Accessory Muscle Use, No Respiratory Distress, Decreased Breath Sounds Cardiovascular: Regular Rate, Rhythm Neurologic/Psychiatric: Other (Sleeping) Results Results/Procedures Labs Laboratory Tests 08/03/19 10:45 Patient resulted labs reviewed. Assessment/Plan Admission Diagnosis Assessment: Altered mental status Severe hyponatremia of 116 Adenocarcinoma lung cancer with widespread metastasis Mass on brain on CT scan today Plan: Oncology consultation Fluid restrict IV fluid supportive care Seizure precautions Admission Status: Inpatient Order (span 2 midnights) Reason for Inpatient Admission: Severe hyponatremia will require 5 days Diagnosis/Problems Diagnosis/Problems (1) Confusion Status: Acute (2) Hyponatremia Status: Acute (3) Pneumonia Status: Acute Qualifiers: Pneumonia type: due to unspecified organism Laterality: bilateral Lung location: unspecified part of lung Qualified Codes: J18.9 - Pneumonia, unspecified organism (4) Metastatic primary lung cancer Status: Acute Qualifiers: Laterality: unspecified laterality Qualified Codes: C34.90 - Malignant neoplasm of unspecified part of unspecified bronchus or lung (5) Hypokalemia Status: Acute (6) Hypothyroidism Status: Chronic (7) Altered mental state Status: Resolved Resolution Date/Time: 02/05/18 @ 20:33 (8) Adenocarcinoma, lung Status: Chronic (9) Hypertension Clinical Quality Measures DVT/VTE Risk/Contraindication: Risk Factor Score Per Nursin RFS Level Per Nursing on Admit: 4+=Very High CHRISTI MCCOLLUM DO Aug 03, 2019 17:19
[2019-08-03] MEDS ORDERED: PIPERACILLIN/TAZO 4.5 GM/NS 100 ML IV SCH ×2 (18:00)
[2019-08-03] MEDS ORDERED: FUROSEMIDE 40 MG/4 ML INJ (LASIX) IVP NR (20:21)
[2019-08-03] MEDS ORDERED: ONDANSETRON 4 MG/2 ML (SDV) Z0FRAN IVP PRN (20:30)
[2019-08-03] MEDS ORDERED: PIPERACILLIN/TAZO 4.5 GM/NS 100 ML IV NR ×2 (20:35)
[2019-08-03] MEDS ORDERED: VANCOMYCIN 1250 MG/NS 250 ML IVPB IV NR ×2 (20:38)
[2019-08-03] MEDS: AZITHROMYCIN 500 MG/NS 250 ML IVPB IV SCH ×2 (20:55)
[2019-08-03] MEDS ORDERED: RT-ALBUTEROL/IPRATROPIUM 3 ML (DUONEB) VIAL INH SCH (21:00)
[2019-08-04] VITALS (16 sets, daily range): BP systolic 98–141; BP diastolic 46–69
[2019-08-04] MEDS: ACETAMINOPHEN 325 MG TABLET PO PRN ×2 (00:26→21:40)
[2019-08-04] MEDS: PIPERACILLIN/TAZO 4.5 GM/NS 100 ML IV SCH ×6 (01:44→18:01)
[2019-08-04] MEDS: NS IV 1000 ML 1,000 ML IV SCH ×5 (01:44→18:01)
[2019-08-04 03:06] LABS: BASOPHILS % (AUTO) 0 % (0-10); EOSINOPHILS # (AUTO) 0.2 10^3/uL (0.0-0.3); EOSINOPHILS % (AUTO) 1 % (0-10); HEMATOCRIT 27 % (35-52); HEMOGLOBIN 9.4 G/DL (11.5-16.0); LYMPHOCYTES # (AUTO) 0.7 X 10^3 (1.0-4.0); LYMPHOCYTES % (AUTO) 4 % (12-44); MEAN CORPUSCULAR HEMOGLOBIN 30 PG (25-34); MEAN CORPUSCULAR HGB CONC 34 G/DL (32-36); MEAN CORPUSCULAR VOLUME 87 FL (80-99); MONOCYTES % (AUTO) 11 % (0-12); NEUTROPHILS # (AUTO) 15.9 X 10^3 (1.8-7.8); NEUTROPHILS % (AUTO) 85 % (42-75); PLATELET COUNT 205 10^3/uL (130-400); RED CELL DISTRIBUTION WIDTH 13.6 % (10.0-14.5); WHITE BLOOD COUNT 18.7 10^3/uL (4.3-11.0)
[2019-08-04 03:22] LABS: BUN/CREATININE RATIO 16; CALCIUM 7.9 MG/DL (8.5-10.1); CARBON DIOXIDE 28 MMOL/L (21-32); CHLORIDE 85 MMOL/L (98-107); CREATININE SERUM 0.61 MG/DL (0.60-1.30); GFR ESTIMATED > 60; GLUCOSE 99 MG/DL (70-105); MAGNESIUM 1.8 MG/DL (1.6-2.4); PHOSPHORUS 3.6 MG/DL (2.3-4.7); POTASSIUM 3.1 MMOL/L (3.6-5.0)
[2019-08-04 03:27] LABS: SODIUM 123 MMOL/L (135-145)
[2019-08-04] MEDS: POTASSIUM CL 10MEQ/50ML IVPB 50 ML IV SCH ×4 (03:50→05:53)
--- NOTE | 2019-08-04 04:22 | Pulmonary Consultation ---
History of Present Illness History of Present Illness Date Seen by Provider: Aug 04, 2019 Time Seen by Provider: 04:16 Date of Admission History of Present Illness 74yo with hx of lung adenocarcinoma metastatic presented to ED secondary MS changes . Head CT shows metastatic lesion to the brain. Allergies and Home Medications Allergies Coded Allergies: carboplatin (Verified Allergy, Severe, 07/10/18) REACTION TO CARBOPLATIN Sulfa (Sulfonamide Antibiotics) (Verified Allergy, Mild, 02/04/18) Home Medications Acetaminophen 500 Mg Tablet, 1,000 MG PO TID, (Reported) Albuterol Sulfate 1 Puff Puff, 2 PUFF INH Q4H PRN for SHORTNESS OF BREATH, (Reported) Apixaban 2.5 Mg Tablet, 2.5 MG PO BID, (Reported) Furosemide 20 Mg Tablet, 20 MG PO MoWeFr, (Reported) Guaifenesin 400 Mg Tablet, 400 MG PO BID, (Reported) Levofloxacin 750 Mg Tablet, 750 MG PO DAILY Prescribed by: MANUEL CARVER on 07/31/19 2707 Levothyroxine Sodium 88 Mcg Tablet, 88 MCG PO DAILY, (Reported) Lisinopril 5 Mg Tablet, 5 MG PO HS, (Reported) Loratadine 10 Mg Tablet, 10 MG PO DAILY, (Reported) Omeprazole 20 Mg Capsule.dr, 20 MG PO DAILY, (Reported) Potassium Chloride 10 Meq Tab.er.prt, 10 MEQ PO BID, (Reported) Timolol Maleate 5 Ml Drops, 1 DROP OD BID, (Reported) Past Xhghdjn-Hkmptm-Hbzpaz Hx Past Med/Social Hx: Reviewed Nursing Past Med/Soc Hx, Reviewed and Corrections made Patient Social History Alcohol Use: Denies Use Recreational Drug Use: No Smoking Status: Never a Smoker Recent Foreign Travel: No Contact w/Someone Who Travel: No Recent Infectious Disease Expo: No Recent Hopitalizations: No Physical Abuse: No Sexual Abuse: No Mistreated: No Immunizations Up To Date Tetanus Booster (TDap): Unknown Date of Pneumonia Vaccine: Apr 27, 2011 Date of Influenza Vaccine: Mar 28, 2019 Seasonal Allergies Seasonal Allergies: Yes Past Medical History Surgeries: Yes (MEDIASTINAL LYMPH NODE ) Hysterectomy, Thyroidectomy Respiratory: Yes (LUNG CA STAGE 4) Pneumonia Cardiac: Yes Deep Vein Thrombosis, Heart Murmur, Hypertension Neurological: Yes TIA Reproductive Disorders: No TIN 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 History: Menopausal Sexually Transmitted Disease: No HIV/AIDS: No Genitourinary: Yes UTI-Chronic Gastrointestinal: Yes Gastroesophageal Reflux, Liver Disease/Jaundice Musculoskeletal: No Endocrine: Yes HEENT: Yes Cataract, Macular Degeneration Cancer: Yes Lung (non-small cell, stage IV) Did You Recieve Any Treatments: Yes What Type of Treatment Did You: Radiation, Other Psychosocial: No Integumentary: No Blood Disorders: Yes (DVT'S) Adverse Reaction/Blood Tranf: No Family Medical History FH: breast cancer G8 SISTER Review of Systems Time Seen by Provider: 04:34 Sepsis Event Evaluation Height, Weight, BMI Height: 5'4.00" Weight: 134lbs. 9.0oz. 61.464813bf; 28.00 BMI Method:Estimated Exam Exam Vital Signs Date Time Temp Pulse Resp B/P (MAP) Pulse Ox O2 Delivery O2 Flow Rate FiO2 08/04/19 03:15 37.4 08/04/19 03:00 73 15 123/60 (81) 97 Nasal Cannula 3.00 08/04/19 02:00 74 17 119/65 (83) 95 Nasal Cannula 3.00 08/04/19 01:00 73 08/04/19 01:00 75 15 124/68 (86) 96 Nasal Cannula 3.00 08/04/19 00:00 78 22 141/69 (93) 96 Nasal Cannula 3.00 08/04/19 00:00 96 Nasal Cannula 3.00 08/03/19 23:20 36.3 08/03/19 23:00 75 15 131/61 (84) 98 Nasal Cannula 3.00 08/03/19 22:00 82 18 129/64 (85) 95 Nasal Cannula 3.00 08/03/19 21:00 75 14 130/63 (85) 95 Nasal Cannula 3.00 08/03/19 20:40 37.4 08/03/19 20:00 95 Nasal Cannula 3.00 08/03/19 20:00 Nasal Cannula 3.00 08/03/19 20:00 71 17 115/68 (84) 96 Nasal Cannula 3.00 08/03/19 19:15 37.1 08/03/19 19:15 37.1 08/03/19 19:00 71 08/03/19 19:00 71 15 116/58 (77) 97 Nasal Cannula 3.00 08/03/19 18:00 70 15 127/63 (84) 97 Nasal Cannula 2.00 08/03/19 17:00 68 30 125/66 (85) 96 Nasal Cannula 2.00 08/03/19 16:11 36.9 92 95 32 08/03/19 16:00 72 29 134/63 (86) 96 Nasal Cannula 2.00 08/03/19 16:00 Nasal Cannula 3.00 08/03/19 16:00 36.6 08/03/19 15:11 86 08/03/19 15:00 76 18 109/62 (78) 97 Nasal Cannula 2.00 08/03/19 14:20 36.2 85 21 135/65 (88) 93 Nasal Cannula 2.00 08/03/19 14:07 96 Nasal Cannula 3.00 08/03/19 14:05 86 18 134/64 94 Nasal Cannula 3.00 08/03/19 11:46 96 Nasal Cannula 3.00 08/03/19 11:00 93 Nasal Cannula 3.00 08/03/19 10:30 36.9 92 20 181/82 (115) 95 Nasal Cannula 3.00 I & O 08/04/19 07:00 Intake Total 2937.5 ml Output Total 3900 ml Balance -962.5 ml Height & Weight Height: 5'4.00" Weight: 134lbs. 9.0oz. 61.791121vq; 28.00 BMI Method:Estimated General Appearance: WD/WN, Moderate Distress (Appears dyspneic and uncomfortable) HEENT: PERRL/EOMI, Normal ENT Inspection Neck: Normal Inspection Respiratory: Lungs Clear, Normal Breath Sounds, No Accessory Muscle Use, Decreased Breath Sounds, Other (Accessory muscle use on expiration) Cardiovascular: No Edema, Systolic Murmur, Irregularly Irregular Capillary Refill: Less Than 3 Seconds Extremity: Non Tender, Swelling (Moderate pitting edema equal bilaterally) Neurologic/Psychiatric: No Motor/Sensory Deficits, Other (Confused) Results Lab Laboratory Tests 08/03/19 10:45 08/04/19 02:50 Assessment/Plan Assessment/Plan PNA - Last chemo 2wks ago -Continue Abx for now -Chapman culture Stage 4 lung cancer -Follows with oncology -Last chemo 2 wks ago -CT shows new brain mets MS changes with new findings of brain mets -Seizure precautions -Oncology following Hyponatremia - improving -Monitor -NS at 150 currently Hypokalemia -Replace KAYLIE HAMPTON DO Aug 04, 2019 04:22
[2019-08-04] MEDS ORDERED: POTASSIUM CL 10MEQ/50ML IVPB 50 ML IV SCH (06:00)
[2019-08-04] MEDS ORDERED: MAGNESIUM 1 GM/100 ML IVPB 100 ML IV SCH (06:00)
[2019-08-04] MEDS ORDERED: KCL 20 MEQ TAB (K-DUR) PO SCH (06:00)
[2019-08-04] MEDS: RT-ALBUTEROL/IPRATROPIUM 3 ML (DUONEB) VIAL INH SCH ×2 (07:19→15:04)
[2019-08-04] MEDS ORDERED: FUROSEMIDE 40 MG/4 ML INJ (LASIX) IVP ONE (07:30)
--- NOTE | 2019-08-04 09:21 | Diagnostic Imaging Report ---
Indication: Dyspnea. Comparison: 08/03/2019. Discussion: Single portable upright view of the chest was obtained. Mild cardiomegaly is stable. Elevated right hemidiaphragm is stable. Bilateral mixed interstitial alveolar infiltrates are increased from the prior exam. Right-sided port is stable. No osseous abnormality. Impression: 1. Worsening pulmonary infiltrates. Dictated by: Dictated on workstation # [id number]
[2019-08-04] MEDS: KCL 10 MEQ TAB (MICRO K) PO SCH (09:36)
--- NOTE | 2019-08-04 13:11 | Progress Note - Hospitalist ---
Subjective HPI/CC On Admission Date Seen by Provider: Aug 04, 2019 Time Seen by Provider: 12:00 Chief complaint: Altered mental status History of present illness: This is a 74-year-old [place] female with [facility] who has a past medical history of adenocarcinoma lung cancer with metastasis to presented to the ER with altered mental status. Patient was found to have elevated white count in addition to very low sodium level 116 and evidence of new metastasis into the brain on CT scan. Patient is currently slee ping and significant delirium. We will place on fluid restriction in addition to gentle IV fluids. Patient is sleeping soundly and her is sleeping beside her so I do not disturb anyone. Subjective/Events-last exam Patient is less confused Family at bedside Hyponatremia improved at 123 NS at 50cc/hr has been slowed down from faster rate due to correction to rapid could lead to brain edema Confused still but improved Dr Rush appreciated Review of Systems Neurological: Confusion Focused Exam Lactate Level 08/03/19 10:45: Lactic Acid Level 1.61 Objective Exam Vital Signs Vital Signs Date Time Temp Pulse Resp B/P (MAP) Pulse Ox O2 Delivery O2 Flow Rate FiO2 08/04/19 16:00 36.5 69 17 98/49 (65) 100 Nasal Cannula 3.00 08/03/19 16:11 32 Capillary Refill : Less Than 3 Seconds General Appearance: No Apparent Distress, WD/WN, Chronically ill Respiratory: Chest Non Tender, Lungs Clear, Normal Breath Sounds, No Accessory Muscle Use, No Respiratory Distress Cardiovascular: Regular Rate, Rhythm, No Edema, No Gallop, No JVD, No Murmur, Normal Peripheral Pulses Neurologic/Psychiatric: Alert, Oriented x3, No Motor/Sensory Deficits, Normal Mood/Affect Results/Procedures Lab Laboratory Tests 08/04/19 02:50 08/04/19 12:55 Patient resulted labs reviewed. Assessment/Plan Assessment and Plan Assess & Plan/Chief Complaint Assessment: Hyponatremia AMS Brain mets Lung cancer with mets Plan: Monitor BP and sodium level Diagnosis/Problems Diagnosis/Problems (1) Confusion Status: Acute (2) Hyponatremia Status: Acute (3) Pneumonia Status: Acute Qualifiers: Pneumonia type: due to unspecified organism Laterality: bilateral Lung location: unspecified part of lung Qualified Codes: J18.9 - Pneumonia, unspecified organism (4) Metastatic primary lung cancer Status: Acute Qualifiers: Laterality: unspecified laterality Qualified Codes: C34.90 - Malignant neoplasm of unspecified part of unspecified bronchus or lung (5) Hypokalemia Status: Acute (6) Hypothyroidism Status: Chronic (7) Altered mental state Status: Resolved Resolution Date/Time: 02/05/18 @ 20:33 (8) Adenocarcinoma, lung Status: Chronic (9) Hypertension Clinical Quality Measures DVT/VTE Risk/Contraindication: Risk Factor Score Per Nursin RFS Level Per Nursing on Admit: 4+=Very High MINA PARIKH DO Aug 04, 2019 13:11
--- NOTE | 2019-08-04 13:57 | Progress Note - Cardiology ---
Cardiology SOAP Progress Note Subjective: She is awake and quite alert today and we were able to communicate with her with the help of her son who translated She did not report cp or palp or syncope Has had gen malaise and weakness Objective: I&O/Vital Signs 08/04/19 08/04/19 08/04/19 08/04/19 02:00 03:00 03:15 04:00 Temp 37.4 Pulse 74 73 79 Resp 17 15 17 B/P (MAP) 119/65 (83) 123/60 (81) 136/65 (88) Pulse Ox 95 97 96 O2 Delivery Nasal Cannula Nasal Cannula Nasal Cannula O2 Flow Rate 3.00 3.00 3.00 08/04/19 08/04/19 08/04/19 08/04/19 04:00 05:00 06:00 07:00 Pulse 70 75 75 Resp 17 19 32 B/P (MAP) 117/61 (79) 133/64 (87) 128/63 (84) Pulse Ox 98 98 98 92 O2 Delivery Nasal Cannula Nasal Cannula Nasal Cannula Nasal Cannula O2 Flow Rate 3.00 3.00 3.00 3.00 08/04/19 08/04/19 08/04/19 08/04/19 07:00 08:00 08:00 08:00 Temp 37.4 Pulse 78 80 Resp 22 B/P (MAP) 109/66 (80) Pulse Ox 96 98 O2 Delivery Nasal Cannula Nasal Cannula O2 Flow Rate 3.00 3.00 08/04/19 08/04/19 08/04/19 08/04/19 09:00 12:00 12:00 12:00 Temp 37.3 Pulse 71 77 Resp 36 16 B/P (MAP) 115/64 (81) Pulse Ox 94 98 96 O2 Delivery Nasal Cannula Nasal Cannula Nasal Cannula O2 Flow Rate 3.00 3.00 3.00 08/04/19 12:54 Pulse 84 08/04/19 00:00 Intake Total 1887.5 ml Output Total 3150 ml Balance -1262.5 ml Weight (Pounds): 134 Weight (Ounces): 9.0 Weight (Calculated Kilograms): 61.139027 Constitutional: well-developed, well-nourished, other (She appears alert and oriented today) Respiratory: chest expansion is symmetric, chest is bilaterally symmetric, crackles (bi-basilar) Cardiovascular: regular rate-rhythm; No JVD; S1 and S2, systolic murmur Gastrointestional: soft, round, audible bowel sounds Extremities: other (Bilat pitting edema) Neurologic/Psychiatric: alert (oriented to self and place), other (moves ext remities) Skin: normal color, warm/dry Results/Procedures: Labs Laboratory Tests 08/04/19 02:50: White Blood Count 18.7H, Red Blood Count 3.14L, Hemoglobin 9.4L, Hematocrit 27L, Mean Corpuscular Volume 87, Mean Corpuscular Hemoglobin 30, Mean Corpuscular Hemoglobin Concent 34, Red Cell Distribution Width 13.6, Platelet Count 205, Mean Platelet Volume 9.0, Neutrophils (%) (Auto) 85H, Lymphocytes (%) (Auto) 4L, Monocytes (%) (Auto) 11, Eosinophils (%) (Auto) 1, Basophils (%) (Auto) 0, Neutrophils # (Auto) 15.9H, Lymphocytes # (Auto) 0.7L, Monocytes # (Auto) 2.0H, Eosinophils # (Auto) 0.2, Basophils # (Auto) 0.0, Sodium Level 123*L, Potassium Level 3.1L, Chloride Level 85L, Carbon Dioxide Level 28, Anion Gap 10, Blood Urea Nitrogen 10, Creatinine 0.61, Estimat Glomerular Filtration Rate > 60, BUN/Creatinine Ratio 16, Glucose Level 99, Calcium Level 7.9L, Phosphorus Level 3.6, Magnesium Level 1.8, B-Type Natriuretic Peptide 273.0H 08/04/19 12:55: Sodium Level 125*L Microbiology 08/03/19 Influenza Types A,B Antigen (DEMI) - Final, Complete 08/03/19 Urine Culture - Final, Complete NO GROWTH A/P: Assessment: Pneumonia - management per Med and Pulm Svce Acute on chronic diastolic CHF, mild. 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 No evidence of right heart strain or pulmonary infarct. Findings suggestive of disease progression with increase in size and number of lung nodules and increase in size of the metastatic lesions throughout the liver. Coronary artery disease, status post cardiac catheterization on October 16, [address] Em which showed mild disease nonobstructive disease with normal LV function, severe pulmonary hypertension Severe pulmonary hypertension, echo of 08/03/19 showing RVSP 60 mmHg Metastatic adenocarcinoma of the lung, stage IV, followed and managed by Dr. Wick History of DVT in 1975 OAC with Eliquis History of Graves' disease, followed and managed by primary care physician History of varicose vein stripping in 1976, venous study done November 2015 revealed left lower extremity with venous valvular insufficiency in the greater saphenous system at the SF changes below the knee with reflex time of greater than one second History of thyroidectomy 1980 Hysterectomy 1990 Cataract surgery 2004 Plan: * Complex management due to multiple comorbidities * Mentation has improved with improvement of Na levels. Continue effort to correct hyponatremia * senior living prognosis appears poor due to metastatic CA of the lung * I communicated with her through her son and also answered her son's CV-related questions PUSHPA LORA MD FACP FACC CCDS Aug 04, 2019 13:57
--- NOTE | 2019-08-04 14:05 | Progress Note ---
Standard Progress Note Progress Notes/Assess & Plan Date Seen by a Provider: Aug 04, 2019 Time Seen by a Provider: 13:59 Progress/Assessment & Plan 74 yo female with metastatic NSCLC who has been treated with numerous lines of systemic therapy including brain radiation was readmitted for mental status changes 3 days after being discharged for treated pneumonia. She was found to have severe hyponatremia (Na 116) from baseline Na low to mid 130s. 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 CTA during previous admission was suggestive of progression in the lungs as well. Son reports that patient continues to have waxing and waning lucidity. She was mentally clear last night but is confused this morning. Presumed mechanism of hyponatremia is SIADH from pleural inflammation vs lung cancer progression, but patient has achieved good improvement in serum Na with paradoxical treatment of isotonic saline, and patient's physical exam seems to suggest hypervolemia rather than euvolemia. However, patient is also receiving loop diuretics, so picture is mixed. It is difficult to say if her delirium is primarily due to hyponatremia or if there is a metastatic component involved, but I suspect it is mostly hyponatremia given the low volume findings on imaging. We will continue to follow. No indication for oncologic therapy while inpatient. Focused Exam Lactate Level 08/03/19 10:45: Lactic Acid Level 1.61 CHRISTOPHER OLIVA MD Aug 04, 2019 14:05
[2019-08-04] MEDS ORDERED: LACTATED RINGERS 1,000 ML IV ONE (15:39)
[2019-08-04] MEDS ORDERED: LACTATED RINGERS 1,000 ML IV SCH (16:00)
[2019-08-04] MEDS: VANCOMYCIN 1 GM/NS 250 ML IVPB IV SCH ×2 (19:59)
[2019-08-04] MEDS: AZITHROMYCIN 500 MG/NS 250 ML IVPB IV SCH ×2 (21:04)
[2019-08-05] VITALS: BP 117/56
[2019-08-05] MEDS: PIPERACILLIN/TAZO 4.5 GM/NS 100 ML IV SCH ×6 (01:34→17:59)
[2019-08-05] MEDS: RT-ALBUTEROL/IPRATROPIUM 3 ML (DUONEB) VIAL INH SCH (01:37)
[2019-08-05 03:08] LABS: BASOPHILS % (AUTO) 0 % (0-10); EOSINOPHILS # (AUTO) 0.4 10^3/uL (0.0-0.3); EOSINOPHILS % (AUTO) 3 % (0-10); HEMATOCRIT 29 % (35-52); HEMOGLOBIN 9.5 G/DL (11.5-16.0); LYMPHOCYTES # (AUTO) 0.6 X 10^3 (1.0-4.0); LYMPHOCYTES % (AUTO) 4 % (12-44); MEAN CORPUSCULAR HEMOGLOBIN 30 PG (25-34); MEAN CORPUSCULAR HGB CONC 33 G/DL (32-36); MEAN CORPUSCULAR VOLUME 91 FL (80-99); MONOCYTES # (AUTO) 1.8 X 10^3 (0.0-1.0); MONOCYTES % (AUTO) 13 % (0-12); NEUTROPHILS % (AUTO) 80 % (42-75); PLATELET COUNT 187 10^3/uL (130-400); RED CELL DISTRIBUTION WIDTH 14.1 % (10.0-14.5); WHITE BLOOD COUNT 13.8 10^3/uL (4.3-11.0)
[2019-08-05 03:26] LABS: BUN/CREATININE RATIO 12; CALCIUM 8.2 MG/DL (8.5-10.1); CARBON DIOXIDE 31 MMOL/L (21-32); CHLORIDE 96 MMOL/L (98-107); CREATININE SERUM 0.68 MG/DL (0.60-1.30); GFR ESTIMATED > 60; GLUCOSE 104 MG/DL (70-105); MAGNESIUM 2.3 MG/DL (1.6-2.4); PHOSPHORUS 3.8 MG/DL (2.3-4.7); POTASSIUM 3.6 MMOL/L (3.6-5.0); SODIUM 136 MMOL/L (135-145)
[2019-08-05 03:55] VITALS: BP 124/60
--- NOTE | 2019-08-05 04:10 | NUR ---
Patient c/o chest pain, translated through son who is at the bedside. This RN informed Dr Metz at this time. Dr Metz in to see the patient. Orders for EKG, Troponin, GI cocktail, 324mg Aspirin, and Morphine PRN. Patient c/o feeling SOA also, oxygen at 2L increased back to 3.
[2019-08-05] MEDS ORDERED: morphine INJ 4 MG/ML 1 ML (VIAL/SYRINGE) IVP PRN (04:30)
[2019-08-05] MEDS ORDERED: ANTACID SUSP 30 ML UDC (MYLANTA) PO ONE (04:30)
[2019-08-05] MEDS ORDERED: LIDOCAINE 2% VISCOUS 15 ML UDC PO ONE (04:30)
[2019-08-05] MEDS: FUROSEMIDE 40 MG/4 ML INJ (LASIX) IVP SCH ×2 (04:39→07:25)
--- NOTE | 2019-08-05 04:41 | Pulmonary Progress Note ---
Subjective Time Seen by a Provider: 04:36 Subjective/Events-last exam PT is complaining of acute midsternal chest pressure and worsening SOB. No nausea, diaphoresis. Sepsis Event Evaluation Height, Weight, BMI Height: 5'4.00" Weight: 134lbs. 9.0oz. 61.310750lv; 28.00 BMI Method:Estimated Focused Exam Lactate Level 08/03/19 10:45: Lactic Acid Level 1.61 Exam Exam Vital Signs Date Time Temp Pulse Resp B/P (MAP) Pulse Ox O2 Delivery O2 Flow Rate FiO2 08/05/19 03:55 37.0 74 15 124/60 (81) 98 Nasal Cannula 2.00 08/05/19 01:38 Nasal Cannula 3.00 08/05/19 01:00 71 08/05/19 00:00 73 14 117/56 (76) 98 Nasal Cannula 3.00 08/04/19 23:40 36.6 70 12 117/56 (76) 99 Nasal Cannula 3.00 08/04/19 20:00 98 Nasal Cannula 3.00 08/04/19 20:00 75 17 128/61 (83) 97 Nasal Cannula 3.00 08/04/19 19:55 37.0 77 21 123/63 (83) 99 Nasal Cannula 3.00 08/04/19 19:00 82 08/04/19 19:00 81 16 121/63 (82) 99 Nasal Cannula 3.00 08/04/19 17:00 69 14 111/46 (67) 100 Nasal Cannula 3.00 08/04/19 16:00 36.5 69 17 98/49 (65) 100 Nasal Cannula 3.00 08/04/19 16:00 98 Nasal Cannula 3.00 08/04/19 12:54 84 08/04/19 12:00 37.3 08/04/19 12:00 77 16 115/64 (81) 96 Nasal Cannula 3.00 08/04/19 12:00 98 Nasal Cannula 3.00 08/04/19 09:00 71 36 94 Nasal Cannula 3.00 08/04/19 08:00 98 Nasal Cannula 3.00 08/04/19 08:00 37.4 08/04/19 08:00 80 22 109/66 (80) 96 Nasal Cannula 3.00 08/04/19 07:00 78 08/04/19 07:00 75 32 128/63 (84) 92 Nasal Cannula 3.00 08/04/19 06:00 75 19 133/64 (87) 98 Nasal Cannula 3.00 08/04/19 05:00 70 17 117/61 (79) 98 Nasal Cannula 3.00 I & O 08/05/19 07:00 Intake Total 2460 ml Output Total 5675 ml Balance -3215 ml Height & Weight Height: 5'4.00" Weight: 134lbs. 9.0oz. 61.178821wn; 28.00 BMI Method:Estimated General Appearance: WD/WN, Anxious, Chronically ill, Mild Distress HEENT: PERRL/EOMI, Normal ENT Inspection Neck: Normal Inspection Respiratory: Chest Non Tender, Lungs Clear, Normal Breath Sounds, No Accessory Muscle Use, No Respiratory Distress Cardiovascular: Regular Rate, Rhythm, No Edema, No Gallop, No JVD, No Murmur, Normal Peripheral Pulses Capillary Refill: Less Than 3 Seconds Extremity: Non Tender, Swelling (Moderate pitting edema equal bilaterally) Neurologic/Psychiatric: Alert, Oriented x3, No Motor/Sensory Deficits, Normal Mood/Affect Results Lab Laboratory Tests 08/03/19 10:45 08/04/19 02:50 08/04/19 12:55 08/05/19 02:54 Assessment/Plan Assessment/Plan PNA - Last chemo 2wks ago -Continue Abx for now -Chapman culture Acute CP without radiation -check EKG, troponin -Give ASA -Start PRN morphine -Will give PRN SVN (pt has been refusing SVNs) -Will give GI cocktail -Start SL nitro if GI cocktail does not improve CP SOB and pulmonary edema -Lasix 40mg now then daily Stage 4 lung cancer -Follows with oncology -Last chemo 2 wks ago -CT shows new brain mets MS changes with new findings of brain mets -Seizure precautions -Oncology following Hyponatremia - improving -Monitor -NS at 150 currently Hypokalemia -Replace KAYLIE HAMPTON DO Aug 05, 2019 04:41
[2019-08-05] MEDS: ASPIRIN 325 MG (5 GR) TABLET PO SCH ×2 (04:52→07:27)
[2019-08-05] MEDS: POTASSIUM CL 10MEQ/50ML IVPB 50 ML IV SCH ×5 (04:53→08:34)
--- NOTE | 2019-08-05 05:00 | NUR ---
Patient reported that pain is gone at this time. EKG given to Dr Metz, meds administered, lab drawn. Son remains at the bedside.
--- NOTE | 2019-08-05 05:27 | NUR ---
Troponin 0.[address] Metz.
[2019-08-05] MEDS: KCL 10 MEQ TAB (MICRO K) PO SCH (06:32)
--- NOTE | 2019-08-05 07:25 | NUR ---
PT RECEIVED 40MG OF LASIX THIS AM PER MEMO PRIOR TO THIS RN SHIFT, PT SCHEDULED FOR 40MG OF LASIX AGAIN AT 0900. MEDICATION NON-ADMIN DUE TO ALREADY RECEIVING DOSE THIS AM. PT IS NOT TO HAVE 80MG OF LASIX THIS DAY.
--- NOTE | 2019-08-05 07:42 | Diagnostic Imaging Report ---
INDICATION: Dyspnea. Comparison is made with prior examination from 08/04/2019. FINDINGS: Heart size is stable. There is bilateral airspace disease. Underlying central pulmonary venous congestion cannot be excluded. There is no pleural effusion or pneumothorax. Mediastinum is unremarkable. IMPRESSION: Diffuse bilateral airspace disease. Underlying central pulmonary venous congestion cannot be excluded. Dictated by: Dictated on workstation # [id number]
[2019-08-05 08:00] VITALS: BP 123/53
[2019-08-05] MEDS ORDERED: PANTOPRAZOLE 40 MG (PROTONIX) TAB PO ONE (11:30)
--- NOTE | 2019-08-05 11:37 | Progress Note - Cardiology ---
Cardiology SOAP Progress Note Subjective: More alert today. Son by bedside. We were able to communicate with her through her son. She did not report cp or palp. Has been feeling better. Has had gen malaise Objective: I&O/Vital Signs 08/04/19 08/05/19 08/05/19 08/05/19 23:40 00:00 01:00 01:38 Temp 36.6 Pulse 70 73 71 Resp 12 14 B/P (MAP) 117/56 (76) 117/56 (76) Pulse Ox 99 98 O2 Delivery Nasal Cannula Nasal Cannula Nasal Cannula O2 Flow Rate 3.00 3.00 3.00 08/05/19 08/05/19 08/05/19 08/05/19 03:55 04:10 04:29 07:00 Temp 37.0 Pulse 74 75 Resp 15 B/P (MAP) 124/60 (81) Pulse Ox 98 98 O2 Delivery Nasal Cannula Nasal Cannula Nasal Cannula O2 Flow Rate 2.00 3.00 3.00 08/05/19 08/05/19 08/05/19 08:00 08:00 09:00 Temp 37.0 Pulse 80 Resp 15 B/P (MAP) 123/53 (76) Pulse Ox 96 98 O2 Delivery Nasal Cannula Nasal Cannula O2 Flow Rate 3.00 3.00 08/05/19 00:00 Intake Total 2110 ml Output Total 4475 ml Balance -2365 ml Weight (Pounds): 134 Weight (Ounces): 9.0 Weight (Calculated Kilograms): 61.809796 Constitutional: well-developed, well-nourished, other (She appears alert and oriented today) Respiratory: No accessory muscle use; other (good bilat air entry) Cardiovascular: regular rate-rhythm; No JVD; S1 and S2, systolic murmur Gastrointestional: soft, round, audible bowel sounds Extremities: other (edema of the legs is much improved, no cyanosis) Neurologic/Psychiatric: alert (oriented to self and place), other (moves all limbs equally) Skin: normal color, warm/dry Results/Procedures: Labs Laboratory Tests 08/04/19 12:55: Sodium Level 125*L 08/05/19 02:54: Sodium Level 136, White Blood Count 13.8H, Red Blood Count 3.13L, Hemoglobin 9.5L, Hematocrit 29L, Mean Corpuscular Volume 91, Mean Corpuscular Hemoglobin 30, Mean Corpuscular Hemoglobin Concent 33, Red Cell Distribution Width 14.1, Platelet Count 187, Mean Platelet Volume 9.0, Neutrophils (%) (Auto) 80H, Lymphocytes (%) (Auto) 4L, Monocytes (%) (Auto) 13H, Eosinophils (%) (Auto) 3, Basophils (%) (Auto) 0, Neutrophils # (Auto) 11.0H, Lymphocytes # (Auto) 0.6L, Monocytes # (Auto) 1.8H, Eosinophils # (Auto) 0.4H, Basophils # (Auto) 0.0, Potassium Level 3.6, Chloride Level 96L, Carbon Dioxide Level 31, Anion Gap 9, Blood Urea Nitrogen 8, Creatinine 0.68, Estimat Glomerular Filtration Rate > 60, BUN/Creatinine Ratio 12, Glucose Level 104, Calcium Level 8.2L, Phosphorus Level 3.8, Magnesium Level 2.3 08/05/19 04:45: Troponin I 0.049H Microbiology 08/03/19 MRSA Screen - Final, Complete MRSA not isolated 08/03/19 Blood Culture - Preliminary, Resulted No growth 08/03/19 Urine Culture - Final, Complete NO GROWTH Laboratory Tests 08/04/19 02:50 08/04/19 12:55 08/05/19 02:54 A/P: Assessment: Pneumonia - management per Med and Pulm Svce Acute on chronic diastolic CHF, mild. Echo of 08/03/19: LVEF 60-65 percent, mod TR, mild AI, RVSP 60 mmHg Hyponatremia, etiology unclear: secondary to SIADH d/t lung cancer/pneumonia or due to diastolic CHF (had presented with considerable swelling, suggestive of volume overload) CTA of the chest from 07-29-2019 showed - Small burden of pulmonary emboli to the subsegmental branches of the right lung. No evidence of right heart strain or pulmonary infarct. Findings suggestive of disease progression with increase in size and number of lung nodules and increase in size of the metastatic lesions throughout the liver. Coronary artery disease, status post cardiac catheterization on October 16, [address] Em which showed mild disease nonobstructive disease with normal LV function, severe pulmonary hypertension Severe pulmonary hypertension, echo of 08/03/19 showing RVSP 60 mmHg Metastatic adenocarcinoma of the lung, stage IV, followed and managed by Dr. Delano Hill of DVT in 1975 Previously on OAC with Eliquis that is currently being held by the Medical Service History of Graves' disease, followed and managed by primary care physician Surgical history: varicose vein stripping 1976, thyroidectomy 1980; hysterectomy 1990; cataract surgery 2004 Plan: * Complex management due to multiple comorbidities * Mentation has improved with improvement of Na levels. 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
[2019-08-05 12:00] VITALS: BP 123/60
[2019-08-05] MEDS: NS IV 1000 ML 1,000 ML IV SCH (12:19)
--- NOTE | 2019-08-05 13:35 | Progress Note - Hospitalist ---
Subjective HPI/CC On Admission Date Seen by Provider: Aug 05, 2019 Time Seen by Provider: 12:00 Chief complaint: Altered mental status History of present illness: This is a 74-year-old Irish female with [facility] who has a past medical history of adenocarcinoma lung cancer with metastasis to presented to the ER with altered mental status. Patient was found to have elevated white count in addition to very low sodium level 116 and evidence of new metastasis into the brain on CT scan. Patient is currently slee ping and significant delirium. We will place on fluid restriction in addition to gentle IV fluids. Patient is sleeping soundly and her is sleeping beside her so I do not disturb anyone. Subjective/Events-last exam Patient doing much better Less confusion Sodium level 136 PT/OT will be started tomorrow Family at bedside BM+ No pain is reported Review of Systems Neurological: Confusion Focused Exam Lactate Level 08/03/19 10:45: Lactic Acid Level 1.61 Objective Exam Vital Signs Vital Signs Date Time Temp Pulse Resp B/P (MAP) Pulse Ox O2 Delivery O2 Flow Rate FiO2 08/05/19 16:34 37.0 74 16 120/58 (78) 96 Nasal Cannula 3.00 08/03/19 16:11 32 Capillary Refill : Less Than 3 Seconds General Appearance: No Apparent Distress, WD/WN, Chronically ill Respiratory: Chest Non Tender, Lungs Clear, Normal Breath Sounds, No Accessory Muscle Use, No Respiratory Distress Cardiovascular: Regular Rate, Rhythm, No Edema, No Gallop, No JVD, No Murmur, Normal Peripheral Pulses Neurologic/Psychiatric: Alert, Oriented x3, No Motor/Sensory Deficits, Normal Mood/Affect, Disoriented Results/Procedures Lab Laboratory Tests 08/05/19 02:54 Patient resulted labs reviewed. Assessment/Plan Assessment and Plan Assess & Plan/Chief Complaint Assessment: Hyponatremia AMS Brain mets Lung cancer with mets Plan: Monitor BP and sodium level Move to 4th floor Diagnosis/Problems Diagnosis/Problems (1) Confusion Status: Acute (2) Hyponatremia Status: Acute (3) Pneumonia Status: Acute Qualifiers: Pneumonia type: due to unspecified organism Laterality: bilateral Lung location: unspecified part of lung Qualified Codes: J18.9 - Pneumonia, unspecified organism (4) Metastatic primary lung cancer Status: Acute Qualifiers: Laterality: unspecified laterality Qualified Codes: C34.90 - Malignant neoplasm of unspecified part of unspecified bronchus or lung (5) Hypokalemia Status: Acute (6) Hypothyroidism Status: Chronic (7) Altered mental state Status: Resolved Resolution Date/Time: 02/05/18 @ 20:33 (8) Adenocarcinoma, lung Status: Chronic (9) Hypertension Clinical Quality Measures DVT/VTE Risk/Contraindication: Risk Factor Score Per Nursin RFS Level Per Nursing on Admit: 4+=Very High MINA PARIKH DO Aug 05, 2019 13:35
[2019-08-05 16:34] VITALS: BP 120/58
--- NOTE | 2019-08-05 16:41 | NUR ---
DR PARIKH NOTIFIED OF ORDER FOR ELIQUIS PLACED BY DR GUIDO PARIKH STATED WAS UP TO DR OLIVA TO RESTART THE MEDICATION. DR OLIVA GAVE APPROVAL FOR ELIQUIS TO BE RESTARTED.
[2019-08-05] MEDS ORDERED: APIXABAN 5 MG (ELIQUIS) TABLET PO ONE (16:59)
[2019-08-05] MEDS: ACETAMINOPHEN 325 MG TABLET PO PRN (19:18)
[2019-08-05 20:57] VITALS: BP 132/64
[2019-08-05] MEDS: VANCOMYCIN 1 GM/NS 250 ML IVPB IV SCH ×2 (21:58)
[2019-08-05] MEDS: APIXABAN 5 MG (ELIQUIS) TABLET PO SCH (22:01)
[2019-08-05] MEDS: AZITHROMYCIN 500 MG/NS 250 ML IVPB IV SCH ×2 (23:09)
[2019-08-06] VITALS: BP 134/78
[2019-08-06] MEDS: PIPERACILLIN/TAZO 4.5 GM/NS 100 ML IV SCH ×6 (02:14→17:57)
[2019-08-06 04:59] VITALS: BP 178/72
[2019-08-06] MEDS: ACETAMINOPHEN 325 MG TABLET PO PRN (05:23)
[2019-08-06 05:40] LABS: BASOPHILS % (AUTO) 0 % (0-10); EOSINOPHILS # (AUTO) 0.7 10^3/uL (0.0-0.3); EOSINOPHILS % (AUTO) 5 % (0-10); HEMATOCRIT 30 % (35-52); HEMOGLOBIN 9.5 G/DL (11.5-16.0); LYMPHOCYTES # (AUTO) 0.8 X 10^3 (1.0-4.0); LYMPHOCYTES % (AUTO) 6 % (12-44); MEAN CORPUSCULAR HEMOGLOBIN 30 PG (25-34); MEAN CORPUSCULAR HGB CONC 32 G/DL (32-36); MEAN CORPUSCULAR VOLUME 94 FL (80-99); MONOCYTES # (AUTO) 1.3 X 10^3 (0.0-1.0); MONOCYTES % (AUTO) 10 % (0-12); NEUTROPHILS # (AUTO) 10.8 X 10^3 (1.8-7.8); NEUTROPHILS % (AUTO) 79 % (42-75); PLATELET COUNT 212 10^3/uL (130-400); RED CELL DISTRIBUTION WIDTH 14.6 % (10.0-14.5); WHITE BLOOD COUNT 13.7 10^3/uL (4.3-11.0)
[2019-08-06 05:58] LABS: BUN/CREATININE RATIO 16; CALCIUM 8.6 MG/DL (8.5-10.1); CARBON DIOXIDE 30 MMOL/L (21-32); CHLORIDE 94 MMOL/L (98-107); CREATININE SERUM 0.69 MG/DL (0.60-1.30); GFR ESTIMATED > 60; GLUCOSE 85 MG/DL (70-105); MAGNESIUM 2.2 MG/DL (1.6-2.4); PHOSPHORUS 3.7 MG/DL (2.3-4.7); POTASSIUM 4.3 MMOL/L (3.6-5.0); SODIUM 134 MMOL/L (135-145)
[2019-08-06] MEDS: KCL 10 MEQ TAB (MICRO K) PO SCH (07:38)
[2019-08-06] MEDS: APIXABAN 5 MG (ELIQUIS) TABLET PO SCH ×2 (07:38→22:03)
[2019-08-06] MEDS: ASPIRIN 325 MG (5 GR) TABLET PO SCH (07:38)
[2019-08-06] MEDS: FUROSEMIDE 40 MG/4 ML INJ (LASIX) IVP SCH (07:38)
[2019-08-06] MEDS: PANTOPRAZOLE 40 MG (PROTONIX) TAB PO SCH (07:38)
[2019-08-06 08:00] VITALS: BP 147/65
--- NOTE | 2019-08-06 09:20 | Occupational Therapy Eval ---
OT Evaluation-General/PLF Medical Diagnosis Admission Date Aug 03, 2019 at 12:45 Medical Diagnosis: AMS; metastasis to brain Onset Date: Aug 06, 2019 Therapy Diagnosis Therapy Diagnosis: Decreased ADL function Height/Weight Height (Feet): 5 Height (Inches): 4.00 Weight (Pounds): 134 Weight (Ounces): 9.0 Precautions Precautions/Isolations: Fall Prevention, Standard Precautions Safety Interventions: Bed Exit Alarm Weight Bear Status Weight Bearing Restriction: Weight Bearing/Tolerated Referral Physician: Christi Mccollum DO Referral Reason: Activity Tolerance, Self Care, Evaluation/Treatment, Strengthening/ROM Medical History Pertinent Medical History: GERD, HTN Additional Medical History Lung Ca with metastasis, HTN, TIA, gastroesophageal reflux, liver disease, cataract/ macular degeneration Current History Pt was admitted for PNA last week per daughter. Pt went home last Tu, experienced AMS and was readmitted. Reviewed History: Yes Social History Home: Single Level Current Living Status: Children ADL-Prior Level of Function SCALE: Activities may be completed with or without assistive devices. 6-Qkikapfjay-gkpxwxc completes the activity by him/herself with no assistance from a helper. 5-Set-up or Clean-up Assistance-helper sets up or cleans up; patient completes activity. [place] assists only prior to or following the activity. 4-Supervision or Touching Assistance-helper provides verbal cues and/or touching/steadying and/or contact guard assistance as patient completes activity. Assistance may be provided throughout the activity or intermittently. 3-Partial/Moderate Assistance-helper does LESS THAN HALF the effort. [place] lifts, holds or supports trunk or limbs, but provides less than half the effort. 2-Substantial/Maximal Assistance-helper does MORE THAN HALF the effort. [place] lifts or holds trunk or limbs and provides more than half the effort. 0-Gfipbubfw-qnxvtt does ALL the effort. Patient does none of the effort to complete the activity. Or, the assistance of 2 or more helpers is required for the patient to complete the activity. If activity was not attempted, code reason: 7-Patient Refused. 9-Not Applicable-not attempted and the patient did not perform the activity before the current illness, exacerbation or injury. 10-Not Attempted due to Environmental Limitations-(lack of equipment, weather restraints, etc.). 88-Not Attempted due to Medical Conditions or Safety Concerns. ADL PLOF Comments Pt's daughter states pt was IND with use of walker in home/ no walker out of home. Self Care: Independent Functional Cognition: Independent DME/Equipment: Bath Chair, Grab Bars, Shower Occupation: retired Drive Self: No OT Current Status Subjective Pt seen on recliner chair, daughter present stating pt is attempting BM on bed saha. Pt's daughter interprets for OT/ pt. Pt denies pain, states she feels judy ewhat weak but is willing to try to utilize commode. Mental Status/Objective Attachments: Bui Catheter, IV, Oxygen (3L), Telemetry Current Glasses/Contacts: Yes Hearing Aids: No Dentures/Partials: Yes Upper Extremity ROM Decreased bilaterally Upper Extremity Strength Decreased bilaterally ADL-Treatment Eating (QC): 6 (pt takes sip of water from daughter) Lower Body Dressing (QC): 2 (max A with assist threading BLE, pt pulls from shins to over knees, requires assist post-BM for pulling over hips.) On/Off Footwear (QC): 1 Toileting Hygiene (QC): 1 Other Treatments Pt and alonzo educated on OT role, states ability/ desire to go to toilet. Based on pt's statements to daughter and response time, pt cognitively able to follow directions of OT. Neurology comes in during session. Post-neurology, pt continues to desire bathroom. Pt sit to stand with walker with min A. Pt walks with decreased stride length/ increased time to standard toilet. Pt requires directions for walker use. Pt lowers to toilet with CGA and use of grab bars.Daughter provides hx, states pt lives with son/ , typically able to complete all ADLs but with PNA last week and suspected UTI this week pt had AMS and weakness. Pt completes BM, denies wiping self as she is tired. Pt TD for wiping. Pt's catheter full- nursing admin notified. Pt max A with undergarments, per ability to complete breifs pt is TD with footwear. Pt's recliner placed at doorway of bathroom due to fatigue, able to transfer with mod cues (translated by pt's daughter). Pt left in recliner with all needs met, call light in reach. Education OT Patient Education: Correct positioning, Instructions to caregiver, Modified ADL techniques, Safety issues, Transfer techniques Teaching Recipient: Patient, Family Teaching Methods: Demonstration, Discussion Response to Teaching: Verbalize Understanding, Return Demonstration, Reinforcement Needed OT Fpc Goals Fpc Goals Time Frame: Aug 13, 2019 Eating (QC): 6 Oral Hygiene (QC): 6 Toileting Hygiene (QC): 4 Shower/Bathe Self (QC): 4 Upper Body Dressing (QC): 5 Lower Body Dressing (QC): 4 On/Off Footwear (QC): 4 Additional Goals: 1-Demonstrate ADL Tasks, 2-Verbalize Understanding, 3-ImproveStrength/Daniel 1=Demonstrate adherence to instructed precautions during ADL tasks. 2=Patient will verbalize/demonstrate understanding of assistive devices/modifications for ADL. 3=Patient will improve strength/tolerance for activity to enable patient to perform ADL's. OT Education/Plan Problem List/Assessment Assessment: Decreased Activ Tolerance, Decreased UE Strength, Dependent Transfers, Impaired Funct Balance, Impaired I ADL's, Impaired Self-Care Skills Discharge Recommendations Plan/Recommendations: Continue POC Therapy Discharge Recommendati: 24 Hour Supervision, Home & Family Treatment Plan/Plan of Care Treatment,Training & Education: Yes Patient would benefit from OT for education, treatment and training to promote independence in ADL's, mobility, safety and/or upper extremity function for ADL's. Plan of Care: ADL Retraining, Caregiver Training, Functional Mobility, UE Funct Exercise/Act Treatment Duration: Aug 13, 2019 Frequency: 5 times per week Estimated Hrs Per Day: .25 hour per day Agreement: Yes Rehab Potential: Fair Time/GCodes Start Time: 08:58 (3514) Stop Time: 09:06 (1005) Total Time Billed (hr/min): 26 Billed Treatment Time 1, EVM 8 (9630-1450) 1, ADL 17 ([id number]) JEREMY VO OTR Aug 06, 2019 09:20
--- NOTE | 2019-08-06 10:47 | Cardiology Progress Note ---
Subjective Date Seen by Provider: Aug 06, 2019 Time Seen by Provider: 10:44 Subjective/Events-last exam patient is sitting in a chair, feeling better, mental status is better. Event from the weekend review Review of Systems General: No Chills, No Night Sweats; Fatigue; No Malaise, No Appetite, No Other HEENT: No Head Aches, No Visual Changes, No Eye Pain, No Ear Pain, No Dysphasia, No Sinus Congestion, No Post Nasal Drip, No Sore Throat, No Other Pulmonary: Dyspnea; No Cough, No Pleuritic Chest Pain, No Other Cardiovascular: No: Chest Pain, Palpitations, Orthopnea, Paroxysmal Noc. Dyspnea, Edema, Lt Headedness, Other Focused Exam Lactate Level 08/03/19 10:45: Lactic Acid Level 1.61 Objective-Cardiology Exam Last Set of Vital Signs Vital Signs 08/03/19 08/06/19 16:11 08:00 Temp 36.2 Pulse 72 Resp 20 B/P (MAP) 147/65 (92) Pulse Ox 98 O2 Delivery Nasal Cannula O2 Flow Rate 3.00 FiO2 32 Capillary Refill : Less Than 3 Seconds I&O Intake and Output 08/06/19 00:00 Intake Total 1730 ml Output Total 3850 ml Balance -2120 ml Intake Oral 1310 ml IV Total 420 ml Output Urine Total 3850 ml # Bowel Movements 1 General: Alert, Oriented X3, Cooperative HEENT: Atraumatic, PERRLA Neck: Supple, No JVD, No Thyromegaly Lungs: Normal Air Movement, Other Heart: Regular Rate, Normal S1, Normal S2, No Murmurs Abdomen: Normal Bowel Sounds, Soft, No Tenderness, No Hepatosplenomegaly, No Masses Extremities: No Clubbing, No Cyanosis, No Edema, Normal Pulses, No Tenderness/Swelling Skin: No Rashes, No Breakdown, No Significant Lesion Neuro: Normal Gait, Normal Speech, Strength at 5/5 X4 Ext, Normal Tone, Sensation Intact Psych/Mental Status: Mental Status NL, Mood NL Results Lab Laboratory Tests 08/06/19 05:30 A/P-Cardiology Admission Diagnosis sepsis Pneumonia Delirium Coronary artery disease Assessment/Plan Sepsis and pneumonia, improved on antibiotic, clinically better. Managed by primary care team Acute delirium, secondary to above. Mental status is better. Continue to monitor Congestive heart failure, acute on chronic left ventricular diastolic dysfunction, normal systolic function, echocardiogram done on August 03, 2019 showing ejection fraction 65-70 percent, moderate TR, mild AI, pulmonary hypertension with PA pressure 60 mmHg. Hyponatremia, better, continue to monitor electrolytes. Slight elevation in troponin, conservative management at this time is recommended CTA of the chest from 07-29-2019 showed - Small burden of pulmonary emboli to the subsegmental branches of the right lung. No evidence of right heart strain or pulmonary infarct. Findings suggestive of disease progression with increase in size and number of lung nodules and increase in size of the metastatic lesions throughout the liver. Coronary artery disease, status post cardiac catheterization on October 16, 2014 which showed mild disease nonobstructive disease with normal LV function, severe pulmonary hypertension Metastatic adenocarcinoma of the lung, stage IV, followed and managed by Dr. Wick History of DVT in 1975 Previously on OAC with Eliquis that is currently being held by the Medical Service History of Graves' disease, followed and managed by primary care physician Surgical history: varicose vein stripping 1976, thyroidectomy 1980; hysterectomy 1990; cataract surgery 2004 Clinical Quality Measures DVT/VTE Risk/Contraindication: Risk Factor Score Per Nursin RFS Level Per Nursing on Admit: 4+=Very High CHANEL TOMLINSON MD Aug 06, 2019 10:47
--- NOTE | 2019-08-06 11:20 | Physical Therapy Evaluation ---
PT Evaluation-General Medical Diagnosis Admission Date Aug 03, 2019 at 12:45 Medical Diagnosis: hyponoatremia/confusion/metastatic cancer Onset Date: Aug 03, 2019 Therapy Diagnosis Therapy Diagnosis: generalized weakness/debility Height/Weight Height (Feet): 5 Height (Inches): 4.00 Weight (Pounds): 134 Weight (Ounces): 9.0 Precautions Precautions/Isolations: Fall Prevention, Standard Precautions Referral Physician: Christi Mccollum DO Reason for Referral: Evaluation/Treatment Medical History Pertinent Medical History: GERD, HTN Additional Medical History metastatic lung cancer to brain/liver disease/TIA Current History ER secondary to confusion, SOA and weakness/recent hospital stay with dismissal 07/31/19. Reviewed History: Yes Social History Home: Single Level Current Living Status: Children Prior Prior Level of Function SCALE: Activities may be completed with or without assistive devices. 7-Bbdfthlidv-kukfear completes the activity by him/herself with no assistance from a helper. 5-Set-up or Clean-up Assistance-helper sets up or cleans up; patient completes activity. [place] assists only prior to or following the activity. 4-Supervision or Touching Assistance-helper provides verbal cues and/or touching/steadying and/or contact guard assistance as patient completes activity. Assistance may be provided throughout the activity or intermittently. 3-Partial/Moderate Assistance-helper does LESS THAN HALF the effort. [place] lifts, holds or supports trunk or limbs, but provides less than half the effort. 2-Substantial/Maximal Assistance-helper does MORE THAN HALF the effort. [place] lifts or holds trunk or limbs and provides more than half the effort. 6-Ayspmwqjz-ynijxm does ALL the effort. Patient does none of the effort to complete the activity. Or, the assistance of 2 or more helpers is required for the patient to complete the activity. If activity was not attempted, code reason: 7-Patient Refused. 9-Not Applicable-not attempted and the patient did not perform the activity before the current illness, exacerbation or injury. 10-Not Attempted due to Environmental Limitations-(lack of equipment, weather restraints, etc.). 88-Not Attempted due to Medical Conditions or Safety Concerns. Bed Mobility: 6 Transfers (B,C,W/C): 6 Gait: 6 Prior Devices Use: Walker PT Evaluation-Current Subjective Daughter present. Patient and family agree to PT. Pain Numeric Pain Scale: 0-No Pain Location: No Pain Reported Objective Patient Orientation: Person, Time, Situation Attachments: Oxygen, IV ROM/Strength ROM Lower Extremities bilateral LE WFL Strength Lower Extremities 3-/5 grossly bilateral LE Integumentary/Posture Integumentary refer to nursing notes Bowel Incontinence: No Posture flexed knee posture with gait due to weakness Neuromuscular (Tone, Coordination, Reflexes) grossly intact Sensory Vision: Wears Glasses Hearing: Functional Sensation Right Lower Extremit: Intact Sensation Left Lower Extremity: Intact Transfers Roll Left to Right (QC): 3 Sit to Lying (QC): 3 Lying to Sitting/Side of Bed(Q: 3 Sit to Stand (QC): 3 Chair/Kfz-vx-Qjzik Xfer(QC): 3 Gait Does the Patient Walk?: Yes Mode of Locomotion: Walk Anticipated Mode of Locomotion: Walk Walk 10 feet (QC): 3 Walk 50 ft with 2 Turns(QC): 88 Walk 150 ft (QC): 88 Distance: 30' Gait Assistive Device: FWW Comments/Gait Description flexed knee/shuffle gait sequence Balance Sitting Static: Normal Sitting Dynamic: Normal Standing Static: Fair Standing Dynamic: Fair Assessment/Needs 74 y.o. very debilitated female, will benefit from skilled PT to address functional strength and mobility to improve current LOF to safely return to home with family at maximum LOF. Rehab Potential: Fair PT Correction Goals Correction Goals PT Lighting Fixtures Decorator Goals Time Frame: Aug 25, 2019 Roll Left & Right (QC): 6 Sit to Lying (QC): 6 Lying-Sitting on Side/Bed(QC): 6 Sit to Stand (QC): 6 Chair/Vip-hv-Fnonw Xfer(QC): 6 Toilet Transfer (QC): 6 Car Transfer (QC): 6 Does the Patient Walk: Yes Walk 10 feet (QC): 6 Walk 50ft with 2 Turns (QC): 6 Walk 150 ft (QC): 6 Walking 10ft on Uneven Surface: 6 1 Step (curb) (QC): 6 PT Plan Problem List Problem List: Activity Tolerance, Functional Strength, Safety, Balance, Gait, Transfer, Bed Mobility Treatment/Plan Treatment Plan: Continue Plan of Care Treatment Plan: Bed Mobility, Education, Functional Activity Daniel, Functional Strength, Gait, Safety, Therapeutic Exercise, Transfers Treatment Duration: Aug 25, 2019 Frequency: 6 times per week Estimated Hrs Per Day: .25 hour per day Patient and/or Family Agrees t: Yes Time/GCodes Time In: 1020 Time Out: 1040 Total Billed Treatment Time: 20 Total Billed Treatment 1 visit EVMod 20 min DASHA LUU PT Aug 06, 2019 11:20
[2019-08-06] MEDS ORDERED: LEVO750T9 PO (12:30)
[2019-08-06] MEDS ORDERED: ALB0.5V INH (12:30)
--- NOTE | 2019-08-06 12:32 | NUR ---
SPOKE WITH THE PT'S DAUGHTER WELL GOING THRU THE EXT MED HISTORY TO COMPLETE THE MED REC. DAUGHTER SAID THE PT HAD TAKEN 3 DAYS OF THE LEVAQUIN. I CHECKED WITH [facility] AND THE ALBUTEROL NEBULIZER SOLUTION WAS PICKED UP (THE DAUGHTER THOUGHT IT HAD BEEN AND THAT SHE WAS USING) SO THIS WAS INCLUDED ON THE MED REC. OTC MEDS: TYLENOL MUCINEX LORATADINE
--- NOTE | 2019-08-06 14:29 | Progress Note - Hospitalist ---
MAGALY GARBER, MEDICAL STUDENT 08/06/19 1429: Subjective HPI/CC On Admission Chief complaint: Altered mental status History of present illness: This is a 74-year-old Maltese female with [facility] who has a past medical history of adenocarcinoma lung cancer with metastasis to presented to the ER with altered mental status. Patient was found to have elevated white count in addition to very low sodium level 116 and evidence of new metastasis into the brain on CT scan. Patient is currently sleeping and significant delirium. We will place on fluid restriction in addition to gentle IV fluids. Patient is sleeping soundly and her is sleeping beside her so I do not disturb anyone. Subjective/Events-last exam Patient's Hyponatremia is corrected Patient's mental status is improved Family believes patient's mental status fluctuates throughout the day Walking with PT/OT Objective Exam Vital Signs Vital Signs Date Time Temp Pulse Resp B/P (MAP) Pulse Ox O2 Delivery O2 Flow Rate FiO2 08/06/19 12:35 67 08/06/19 08:00 36.2 20 147/65 (92) 98 Nasal Cannula 3.00 08/03/19 16:11 32 Capillary Refill : Less Than 3 Seconds General Appearance: No Apparent Distress, WD/WN HEENT: PERRL/EOMI, Pharynx Normal Neck: Full Range of Motion, Normal Inspection, Non Tender Respiratory: Chest Non Tender, Lungs Clear, Normal Breath Sounds Cardiovascular: Regular Rate, Rhythm, No Edema, No Gallop, No JVD, No Murmur, Normal Peripheral Pulses Gastrointestinal: Normal Bowel Sounds, No Organomegaly, No Pulsatile Mass, Non Tender, Soft Back: Normal Inspection Extremity: Normal Capillary Refill, Normal Inspection, Normal Range of Motion, Non Tender, No Calf Tenderness Neurologic/Psychiatric: Alert, Oriented x3, No Motor/Sensory Deficits, Normal Mood/Affect, section maintainer II-XII Norm as Tested, Motor Weakness Reflexes: 2+ Bicep (R), 2+ Bicep (L), 2+ Tricep (L); 1+ Knee (R), 1+ Knee (L), 1+ Ankle (R), 1+ Ankle (L) Skin: Normal Color, Warm/Dry Lymphatic: No Adenopathy Results/Procedures Lab Laboratory Tests 08/06/19 05:30 Patient resulted labs reviewed. Assessment/Plan Assessment and Plan Assess & Plan/Chief Complaint 74 YO Female w/ PMH of NSLC of the lung with new diagnosis of metastasis to the brain who originally presented to the ER with altered mental status. Patient is showing improved mental status with correction of hyponatremia and continuing antibiotic course. Oncology following and does not currently believe there is a role for inpatient chemo. Hyponatremia corrected Improving mentation DC'd Telemetry and Bui Catheter Removed fluid restriction Appreciate Oncology recs Clinical Quality Measures DVT/VTE Risk/Contraindication: Risk Factor Score Per Nursin RFS Level Per Nursing on Admit: 4+=Very High CHRISTI PARIKH DO 08/06/192105: Subjective HPI/CC On Admission Date Seen by Provider: Aug 06, 2019 Time Seen by Provider: 09:30 Subjective/Events-last exam Will Dc catheter DC telemetry Pt overall doing well, less confused and able to participate a little in therapy Labs remained stable and have lifted the fluid restriction Review of Systems General: Fatigue Neurological: Confusion Objective Exam General Appearance: No Apparent Distress, WD/WN, Chronically ill Respiratory: Chest Non Tender, Lungs Clear, Normal Breath Sounds, No Accessory Muscle Use, No Respiratory Distress Cardiovascular: Regular Rate, Rhythm, No Edema, No Gallop, No JVD, No Murmur, Normal Peripheral Pulses Neurologic/Psychiatric: Alert, Oriented x3, No Motor/Sensory Deficits, Normal Mood/Affect, Disoriented, Motor Weakness Assessment/Plan Assessment and Plan Assess & Plan/Chief Complaint Assessment: Hyponatremia AMS Brain mets Lung cancer with mets Plan: Monitor BP and sodium level Moved to 4th floor PT/OT Supervisory-Addendum Brief Verification & Attestation Participated in pt care: history, MDM, physical Personally performed: exam, history, MDM, supervision of care Care discussed with: Medical Student Procedures: n/a Results interpretation: Verified all documentation Verification and Attestation of Medical Student E/M Service A medical student performed and documented this service in my presence. I reviewed and verified all information documented by the medical student and made modifications to such information, when appropriate. I personally performed the physical exam and medical decision making. Christi Parikh, Aug 06, 2019,21:06 MAGALY GARBER, MEDICAL STUDENT Aug 06, 2019 14:29 CHRISTI PARIKH DO Aug 06, 2019 21:06
--- NOTE | 2019-08-06 14:31 | NUR ---
"RD ASSESSMENT PMHx: DVT; HTN; TIA; GERD; CA(lung, stage IV) PT INTERACTION: Pt was awake and pleasant during consult for MST score. Note pt does not speak Macedonian well and daughter was present to translate. Pt states current appetite is poor and has been for some time. Note avg PO intake of 92% of meals, per chart review. Pt states following a high protein diet at home, and has no issues with chewing/swallowing food. Pt states no recent issues with n/v/c/d at this time. Note last BM was 08/06 and pt not currently on bowel regimen per chart review. Pt states she has lost a little weight, but unsure of amount/timeframe. Note unable to determine recent wt hx, per chart review. ABNORMAL NUTRITION-RELATED LAB VALUES LOW: Na 134; Cl 94 HIGH: Est. kcal needs: 4172-7328 kcal | 20-25 kcal/kg Est. Pro needs: 72-86 g Pro | 1.0-1.2 g Pro/kg PES STATEMENT: Inadequate oral intake (NI-2.1) related to loss of appetite as evidenced by pt interview INTERVENTION: Continue with current diet order of 2000mg Na diet. Encouraged pt to eat when able. Will continue to follow and reassess as pt needs and status change. MONITOR/EVALUATE: PO Intake; Plan of Care; Hydration Status; Weight Status; Lab Values Zara Araujo, , RD, LD"
[2019-08-06] MEDS: NS IV 1000 ML 1,000 ML IV SCH (15:39)
[2019-08-06 16:00] VITALS: BP 136/64
--- NOTE | 2019-08-06 16:44 | NUR ---
IRF Evaluation Order received to evaluate patient for the ARU. Chart review complete and findings discussed with Dr. Mccollum - patient accepted for admission; however, ARU unable to accommodate patient as the unit is capped at 8. CM/SS notified. Thank you for this referral.
[2019-08-06 19:47] VITALS: BP 155/67
[2019-08-06] MEDS: AZITHROMYCIN 500 MG/NS 250 ML IVPB IV SCH ×2 (22:03)
[2019-08-07] MEDS: PIPERACILLIN/TAZO 4.5 GM/NS 100 ML IV SCH ×6 (02:00→18:53)
[2019-08-07] MEDS: NS IV 1000 ML 1,000 ML IV SCH (05:18)
[2019-08-07 06:23] LABS: BASOPHILS % (AUTO) 0 % (0-10); EOSINOPHILS # (AUTO) 0.7 10^3/uL (0.0-0.3); EOSINOPHILS % (AUTO) 5 % (0-10); HEMATOCRIT 32 % (35-52); HEMOGLOBIN 10.1 G/DL (11.5-16.0); LYMPHOCYTES # (AUTO) 0.7 X 10^3 (1.0-4.0); LYMPHOCYTES % (AUTO) 5 % (12-44); MEAN CORPUSCULAR HEMOGLOBIN 30 PG (25-34); MEAN CORPUSCULAR HGB CONC 32 G/DL (32-36); MEAN CORPUSCULAR VOLUME 94 FL (80-99); MEAN PLATELET VOLUME 9.1 FL (7.4-10.4); MONOCYTES # (AUTO) 1.3 X 10^3 (0.0-1.0); MONOCYTES % (AUTO) 10 % (0-12); NEUTROPHILS # (AUTO) 10.5 X 10^3 (1.8-7.8); NEUTROPHILS % (AUTO) 80 % (42-75); PLATELET COUNT 217 10^3/uL (130-400); RED CELL DISTRIBUTION WIDTH 14.4 % (10.0-14.5); WHITE BLOOD COUNT 13.1 10^3/uL (4.3-11.0)
[2019-08-07 06:39] LABS: BUN/CREATININE RATIO 18; CALCIUM 8.9 MG/DL (8.5-10.1); CARBON DIOXIDE 31 MMOL/L (21-32); CHLORIDE 91 MMOL/L (98-107); CREATININE SERUM 0.66 MG/DL (0.60-1.30); GFR ESTIMATED > 60; GLUCOSE 86 MG/DL (70-105); MAGNESIUM 2.2 MG/DL (1.6-2.4); PHOSPHORUS 3.2 MG/DL (2.3-4.7); POTASSIUM 3.9 MMOL/L (3.6-5.0); SODIUM 133 MMOL/L (135-145)
--- NOTE | 2019-08-07 08:07 | Cardiology Progress Note ---
Subjective Date Seen by Provider: Aug 07, 2019 Time Seen by Provider: 08:06 Subjective/Events-last exam Patient is sitting in a chair, eating breakfast, feeling better. No new complaint Review of Systems General: No Chills, No Night Sweats, No Fatigue, No Malaise, No Appetite, No Other HEENT: No Head Aches, No Visual Changes, No Eye Pain, No Ear Pain, No Dysphasia, No Sinus Congestion, No Post Nasal Drip, No Sore Throat, No Other Pulmonary: Dyspnea, Cough; No Pleuritic Chest Pain, No Other Cardiovascular: No: Chest Pain, Palpitations, Orthopnea, Paroxysmal Noc. Dyspnea, Edema, Lt Headedness, Other Objective-Cardiology Exam Last Set of Vital Signs Vital Signs 08/03/19 08/06/19 08/06/19 08/06/19 16:11 19:47 20:30 23:18 Temp 36.4 Pulse 79 Resp 18 B/P (MAP) 155/67 (96) Pulse Ox 92 O2 Delivery Nasal Cannula O2 Flow Rate 3.00 FiO2 32 Capillary Refill : Less Than 3 SecondsLess Than 3 Seconds I&O Intake and Output 08/07/19 00:00 Intake Total 2500 ml Output Total 1350 ml Balance 1150 ml Intake Oral 1870 ml IV Total 630 ml Output Urine Total 1350 ml # Voids 3 # Bowel Movements 2 General: Alert, Oriented X3, Cooperative HEENT: Atraumatic, PERRLA Neck: Supple, No JVD, No Thyromegaly Lungs: Normal Air Movement, Other Heart: Regular Rate, Normal S1, Normal S2, No Murmurs Abdomen: Normal Bowel Sounds, Soft, No Tenderness, No Hepatosplenomegaly, No Masses Extremities: No Clubbing, No Cyanosis, No Edema, Normal Pulses, No Tenderness/Swelling Skin: No Rashes, No Breakdown, No Significant Lesion Neuro: Normal Gait, Normal Speech, Strength at 5/5 X4 Ext, Normal Tone, Sensation Intact Psych/Mental Status: Mental Status NL, Mood NL Results Lab Laboratory Tests 08/07/19 06:15 A/P-Cardiology Admission Diagnosis sepsis Pneumonia Delirium Coronary artery disease Assessment/Plan Sepsis and pneumonia, improved on antibiotic, clinically better. Managed by primary care team Acute delirium, secondary to above. Mental status is better. Continue to monitor Congestive heart failure, acute on chronic left ventricular diastolic dysfunction, normal systolic function, echocardiogram done on August 03, 2019 showing ejection fraction 65-70 percent, moderate TR, mild AI, pulmonary hypertension with PA pressure 60 mmHg. Hyponatremia, better, continue to monitor electrolytes. Slight elevation in troponin, conservative management at this time is recommended CTA of the chest from 07-29-2019 showed - Small burden of pulmonary emboli to the subsegmental branches of the right lung. No evidence of right heart strain or pulmonary infarct. Findings suggestive of disease progression with increase in size and number of lung nodules and increase in size of the metastatic lesions throughout the liver. Coronary artery disease, status post cardiac catheterization on October 16, 2014 which showed mild disease nonobstructive disease with normal LV function, severe pulmonary hypertension Metastatic adenocarcinoma of the lung, stage IV, followed and managed by Dr. Wick History of DVT in 1975 Previously on OAC with Eliquis that is currently being held by the [facility] History of Graves' disease, followed and managed by primary care physician Surgical history: varicose vein stripping 1976, thyroidectomy 1980; hysterectomy 1990; cataract surgery 2004 Clinical Quality Measures DVT/VTE Risk/Contraindication: Risk Factor Score Per Nursin RFS Level Per Nursing on Admit: 4+=Very High CHANEL TOMLINSON MD Aug 07, 2019 08:07
[2019-08-07] MEDS: KCL 10 MEQ TAB (MICRO K) PO SCH (08:17)
[2019-08-07 08:26] VITALS: BP 149/67
--- NOTE | 2019-08-07 08:42 | Diagnostic Imaging Report ---
INDICATION: Dyspnea. COMPARISON: 08/05/2019. FINDINGS: The 5 lobed infiltrates, while severe, may be slightly improved when compared to the prior exam. The elevated right diaphragm is unchanged. The heart size is at the upper limits but unchanged. IMPRESSION: The extensive 5 lobed infiltrates may be slightly improved but overall not substantially changed. Dictated by: Dictated on workstation # [id number]
[2019-08-07] MEDS: ASPIRIN 325 MG (5 GR) TABLET PO SCH (09:08)
[2019-08-07] MEDS: APIXABAN 5 MG (ELIQUIS) TABLET PO SCH ×2 (09:09→21:23)
[2019-08-07] MEDS: FUROSEMIDE 40 MG/4 ML INJ (LASIX) IVP SCH (09:09)
[2019-08-07] MEDS: PANTOPRAZOLE 40 MG (PROTONIX) TAB PO SCH (09:09)
--- NOTE | 2019-08-07 09:15 | Occ Therapy Progress Note ---
Therapy Progress Note OT attempted visit with pt this AM, her son was present and translated for pt. Pt pleasantly declined OT services at this time, stating she would prefer OT to return later this afternoon. OT will attempt treatment again later. 1, visit 0840 YEN FUNG OT Aug 07, 2019 09:15
--- NOTE | 2019-08-07 11:07 | Physical Therapy Daily Note ---
PT Daily Note-Current Subjective Patient in recliner pre tx, agrees to PT, has no complaints of pain. Family is in the room to help translate. Appearance Patient in recliner post tx with nurse call, phone, tray, family in room. Mental Status Patient Orientation: Person, Unable to Assess Attachments: Oxygen, IV Transfers SCALE: Activities may be completed with or without assistive devices. 8-Dbuxguoueg-ojfhzeo completes the activity by him/herself with no assistance from a helper. 5-Set-up or Clean-up Assistance-helper sets up or cleans up; patient completes activity. [place] assists only prior to or following the activity. 4-Supervision or Touching Assistance-helper provides verbal cues and/or touching/steadying and/or contact guard assistance as patient completes activity. Assistance may be provided throughout the activity or intermittently. 3-Partial/Moderate Assistance-helper does LESS THAN HALF the effort. [place] lifts, holds or supports trunk or limbs, but provides less than half the effort. 2-Substantial/Maximal Assistance-helper does MORE THAN HALF the effort. [place] lifts or holds trunk or limbs and provides more than half the effort. 1-Dqfouutms-ogetbb does ALL the effort. Patient does none of the effort to complete the activity. Or, the assistance of 2 or more helpers is required for the patient to complete the activity. If activity was not attempted, code reason: 7-Patient Refused. 9-Not Applicable-not attempted and the patient did not perform the activity before the current illness, exacerbation or injury. 10-Not Attempted due to Environmental Limitations-(lack of equipment, weather restraints, etc.). 88-Not Attempted due to Medical Conditions or Safety Concerns. Sit to Stand (QC): 4 Chair/Dsa-iu-Lzhwh Xfer(QC): 4 CGA, cues for direction Gait Training Distance: 40' Walk 10 feet (QC): 4 Gait Persons Needed: 1 Gait Assistive Device: FWW CGA, slow but steady, occasional standing rest break Exercises Seated Therapy Exercises: Ankle pumps, Long arc quads Seated Reps: 20 Treatments transfers, ambulation, LE strengthening Assessment Current Status: Fair Progress improving endurance PT Penitentiary Goals Penitentiary Goals PT Business Reporter Goals Time Frame: Aug 25, 2019 Roll Left & Right (QC): 6 Sit to Lying (QC): 6 Lying-Sitting on Side/Bed(QC): 6 Sit to Stand (QC): 6 Chair/Lth-rj-Tilzy Xfer(QC): 6 Toilet Transfer (QC): 6 Car Transfer (QC): 6 Does the Patient Walk: Yes Walk 10 feet (QC): 6 Walk 50ft with 2 Turns (QC): 6 Walk 150 ft (QC): 6 Walking 10ft on Uneven Surface: 6 1 Step (curb) (QC): 6 PT Plan Problem List Problem List: Activity Tolerance, Functional Strength, Safety, Balance, Gait, Transfer, Bed Mobility, ROM Treatment/Plan Treatment Plan: Continue Plan of Care Treatment Plan: Bed Mobility, Education, Functional Activity Daniel, Functional Strength, Gait, Safety, Therapeutic Exercise, Transfers Treatment Duration: Aug 25, 2019 Frequency: 6 times per week Estimated Hrs Per Day: .25 hour per day Patient and/or Family Agrees t: Yes Safety Risks/Education Patient Education: Gait Training, Transfer Techniques, Correct Positioning, Safety Issues Teaching Recipient: Patient Teaching Methods: Demonstration, Discussion Response to Teaching: Reinforcement Needed Time/GCodes Time In: 1045 Time Out: 1100 Total Billed Treatment Time: 15 Total Billed Treatment 1 visit FA 15' JOANNE BARRETO PT Aug 07, 2019 11:07
--- NOTE | 2019-08-07 12:03 | Progress Note - Hospitalist ---
MAGALY GARBER, MEDICAL STUDENT 08/07/19 1203: Subjective HPI/CC On Admission Chief complaint: Altered mental status History of present illness: This is a 74-year-old [place] female with [facility] who has a past medical history of adenocarcinoma lung cancer with metastasis to presented to the ER with altered mental status. Patient was found to have elevated white count in addition to very low sodium level 116 and evidence of new metastasis into the brain on CT scan. Patient is currently sleeping and significant delirium. We will place on fluid restriction in addition to gentle IV fluids. Patient is sleeping soundly and her is sleeping beside her so I do not disturb anyone. Subjective/Events-last exam Patient has been A+O over night No new episodes of confusion Patient and family deny seizure like activity Patient had 3 BMs today. Ambulating well with PT/OT Objective Exam Vital Signs Vital Signs Date Time Temp Pulse Resp B/P (MAP) Pulse Ox O2 Delivery O2 Flow Rate FiO2 08/07/19 09:19 98 Nasal Cannula 3.00 08/07/19 08:26 37.0 70 20 149/67 (94) 08/03/19 16:11 32 Capillary Refill : Less Than 3 SecondsLess Than 3 Seconds General Appearance: No Apparent Distress, WD/WN HEENT: PERRL/EOMI, TMs Normal, Normal ENT Inspection, Pharynx Normal Neck: Full Range of Motion, Normal Inspection, Non Tender, Supple Respiratory: Chest Non Tender, Lungs Clear, Normal Breath Sounds, No Accessory Muscle Use, No Respiratory Distress Cardiovascular: Regular Rate, Rhythm, No Edema, No JVD, No Murmur, Normal Peripheral Pulses Gastrointestinal: Normal Bowel Sounds, No Organomegaly, Non Tender, Soft Rectal: Deferred Back: Normal Inspection, No Vertebral Tenderness Extremity: Normal Inspection, Normal Range of Motion, Non Tender, No Calf Tenderness Neurologic/Psychiatric: Alert, Oriented x3, No Motor/Sensory Deficits, Normal Mood/Affect, Abnormal market specialist II-XII Reflexes: 2+ Bicep (R), 2+ Bicep (L), 2+ Tricep (R), 2+ Tricep (L); 1+ Knee (R); 0 Knee (L); 1+ Ankle (R), 1+ Ankle (L) Skin: Warm/Dry Lymphatic: No Adenopathy Results/Procedures Lab Laboratory Tests 08/07/19 06:15 Patient resulted labs reviewed. Assessment/Plan Assessment and Plan Assess & Plan/Chief Complaint 74 YO Female w/ PMH of NSLC of the lung with new diagnosis of metastasis to the brain who originally presented to the ER with altered mental status. Patient is showing improved mental status with correction of hyponatremia and continuing antibiotic course. Oncology following and does not currently believe there is a role for inpatient chemo. Hyponatremia corrected Improving mentation DC'd Telemetry and Bui Catheter Removed fluid restriction Appreciate Oncology recs Patient is recovering well, can begin planning for inpatient rehab with oral antibiotics to complete course Clinical Quality Measures DVT/VTE Risk/Contraindication: Risk Factor Score Per Nursin RFS Level Per Nursing on Admit: 4+=Very High CHRISTI PARIKH DO 08/07/192054: Subjective HPI/CC On Admission Date Seen by Provider: Aug 07, 2019 Time Seen by Provider: 09:00 Subjective/Events-last exam No open beds for inpatient rehab for awhile Will need home health PT and OT Social work consult working with them for additional care inside the home Ready for DC from my standpoint Sodium level looks good Review of Systems General: Fatigue Pulmonary: Dyspnea Neurological: Confusion Objective Exam General Appearance: No Apparent Distress, WD/WN, Chronically ill Respiratory: Chest Non Tender, Lungs Clear, Normal Breath Sounds, No Accessory Muscle Use, No Respiratory Distress Cardiovascular: Regular Rate, Rhythm, No Edema, No Gallop, No JVD, No Murmur, Normal Peripheral Pulses Assessment/Plan Assessment and Plan Assess & Plan/Chief Complaint Needs HH Prognosis guarded Supportive care Diagnosis/Problems Diagnosis/Problems (1) Hyponatremia Status: Acute (2) Metastatic primary lung cancer Status: Acute Qualifiers: Qualified Codes: C34.90 - Malignant neoplasm of unspecified part of unspecified bronchus or lung (3) Pneumonia Status: Acute Qualifiers: Qualified Codes: J18.9 - Pneumonia, unspecified organism (4) Altered mental state Status: Resolved Resolution Date/Time: 02/05/18 @ 20:33 Supervisory-Addendum Brief Verification & Attestation Participated in pt care: history, MDM, physical Personally performed: exam, history, MDM, supervision of care Care discussed with: Medical Student Procedures: n/a Results interpretation: Verified all documentation Verification and Attestation of Medical Student E/M Service A medical student performed and documented this service in my presence. I reviewed and verified all information documented by the medical student and made modifications to such information, when appropriate. I personally performed the physical exam and medical decision making. Christi Parikh, Aug 07, 2019,20:54 MAGALY GARBER, MEDICAL STUDENT Aug 07, 2019 12:03 CHRISTI PARIKH DO Aug 07, 2019 20:55
--- NOTE | 2019-08-07 14:13 | Occupational Ther Daily Note ---
OT Current Status-Daily Note Subjective Pt sitting upright in recliner at start of session, with and daughter present. Daughter present throughout tx, translating as needed. Mental Status/Objective Attachments: Oxygen ADL-Treatment Therapy Code Descriptions/Definitions Functional [place] Measure: 0=Not Assessed/NA 4=Minimal Assistance 1=Total Assistance 5=Supervision or Setup 2=Maximal Assistance 6=Modified [place] 3=Moderate Assistance 7=Complete IndependenceSCALE: Activities may be completed with or without assistive devices. 3-Bvtqgpybfo-fyfdmsd completes the activity by him/herself with no assistance from a helper. 5-Set-up or Clean-up Assistance-helper sets up or cleans up; patient completes activity. [place] assists only prior to or following the activity. 4-Supervision or Touching Assistance-helper provides verbal cues and/or touching/steadying and/or contact guard assistance as patient completes activity. Assistance may be provided throughout the activity or intermittently. 3-Partial/Moderate Assistance-helper does LESS THAN HALF the effort. [place] lifts, holds or supports trunk or limbs, but provides less than half the effort. 2-Substantial/Maximal Assistance-helper does MORE THAN HALF the effort. [place] lifts or holds trunk or limbs and provides more than half the effort. 9-Ajoxidjdu-oqmhlr does ALL the effort. Patient does none of the effort to complete the activity. Or, the assistance of 2 or more helpers is required for the patient to complete the activity. If activity was not attempted, code reason: 7-Patient Refused. 9-Not Applicable-not attempted and the patient did not perform the activity before the current illness, exacerbation or injury. 10-Not Attempted due to Environmental Limitations-(lack of equipment, weather restraints, etc.). 88-Not Attempted due to Medical Conditions or Safety Concerns. Eating (QC): 6 (Per daughter report, pt did not have difficulty eating lunch) Shower/Bathe Self (QC): 4 (SBA, pt able to complete all parts of sponge bath on this date. Cues required due to language barrier, daughter assisted with translating as needed.) Upper Body Dressing (QC): 3 (Pt required assistance initiating task due to language barrier. Once task was initiated, pt was able to doff shirt, and allyssa clean shirt with assistance for threading oxygen tube.) Other Treatment Pt sitting upright in recliner, completed sponge bath/dressing and then washed her hair using warm shower cap. Pt able to complete tasks with min Love-SBA due to Micronesian not being her primary language. Pt handed a hair brush and attempted to brush her hair, but then held the brush out to OT asking for assistance fin ishing the rest of the task. OT educated pt on UE exercises she could complete throughout the day, her daughter translated instructions to pt. Pt demo'd understanding of exercises, completing x5 reps each. Post OT session, pt seated in recliner, family present, call light in reach and all needs met. Education OT Patient Education: Energy conservation, Exercise program, Modified ADL techniques, Progress toward Goal/Update tx plan, Purpose of tx/functional activities Teaching Recipient: Patient, Family Teaching Methods: Demonstration, Discussion Response to Teaching: Return Demonstration OT Unit Nurse Goals Unit Nurse Goals Time Frame: Aug 13, 2019 Eating (QC): 6 (met) Oral Hygiene (QC): 6 Toileting Hygiene (QC): 4 Shower/Bathe Self (QC): 4 Upper Body Dressing (QC): 5 Lower Body Dressing (QC): 4 On/Off Footwear (QC): 4 Additional Goals: 1-Demonstrate ADL Tasks, 2-Verbalize Understanding, 3- ImproveStrength/Daniel 1=Demonstrate adherence to instructed precautions during ADL tasks. 2=Patient will verbalize/demonstrate understanding of assistive devices/modifications for ADL. 3=Patient will improve strength/tolerance for activity to enable patient to perform ADL's. OT Education/Plan Problem List/Assessment Assessment: Decreased Activ Tolerance, Decreased UE Strength, Impaired I ADL's Discharge Recommendations Plan/Recommendations: Continue POC Treatment Plan/Plan of Care Treatment,Training & Education: Yes Patient would benefit from OT for education, treatment and training to promote independence in ADL's, mobility, safety and/or upper extremity function for ADL's. Plan of Care: ADL Retraining, Caregiver Training, Functional Mobility, UE Funct Exercise/Act Treatment Duration: Aug 13, 2019 Frequency: 5 times per week Estimated Hrs Per Day: .25 hour per day Agreement: Yes Rehab Potential: Fair Time/GCodes Start Time: 13:07 Stop Time: 13:33 Total Time Billed (hr/min): 26 Billed Treatment Time 1, ADL (18'), EX (8') YEN FUNG OT Aug 07, 2019 14:13
[2019-08-07 17:04] VITALS: BP 142/68
--- NOTE | 2019-08-07 17:29 | NUR ---
Met with pt's son teresa to discuss continued care plans. He states that he is unable to provide his mother 24 hour care and was agreeable to referral to [facility]. They have accepted her for continued care and son is to meet with [employer] at 11:00am in the morning.Will follow and assist.
--- NOTE | 2019-08-07 17:55 | Progress Note ---
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 Initially on targeted therapy and more recently on chemotherapy with single agent gemcitabine. Recent admission for pneumonia requiring IV antibiotic therapy. Readmitted within few days with mental status change and SIADH with sodium level of 116. This has improved but mental status is gradually improving. Patient complained of significant weakness and deconditioning. Mostly in chair or bed. Ambulated with physical therapy twice in hallway today. Needs help moving from bed to chair or to bedside commode. Continue physical therapy and strengthening. CT scan of the head done at the time of admission showed questionable small lesions in the cerebellum and MRI with contrast was recommended. This could be done later once patient is stable and stronger. She completed palliative whole brain radiation therapy for metastatic disease in the past. Will follow patient with you. SANTIAGO GARZA Aug 07, 2019 17:55
[2019-08-07 20:45] VITALS: BP 149/66
[2019-08-07] MEDS: AZITHROMYCIN 500 MG/NS 250 ML IVPB IV SCH ×2 (21:23)
[2019-08-08] MEDS: PIPERACILLIN/TAZO 4.5 GM/NS 100 ML IV SCH ×4 (02:00→09:33)
[2019-08-08 06:22] LABS: BASOPHILS % (AUTO) 0 % (0-10); EOSINOPHILS # (AUTO) 0.6 10^3/uL (0.0-0.3); EOSINOPHILS % (AUTO) 6 % (0-10); HEMATOCRIT 31 % (35-52); HEMOGLOBIN 9.9 G/DL (11.5-16.0); LYMPHOCYTES # (AUTO) 0.8 X 10^3 (1.0-4.0); LYMPHOCYTES % (AUTO) 8 % (12-44); MEAN CORPUSCULAR HEMOGLOBIN 30 PG (25-34); MEAN CORPUSCULAR HGB CONC 33 G/DL (32-36); MEAN CORPUSCULAR VOLUME 93 FL (80-99); MEAN PLATELET VOLUME 9.1 FL (7.4-10.4); MONOCYTES % (AUTO) 10 % (0-12); NEUTROPHILS % (AUTO) 76 % (42-75); PLATELET COUNT 232 10^3/uL (130-400); RED CELL DISTRIBUTION WIDTH 14.5 % (10.0-14.5); WHITE BLOOD COUNT 10.4 10^3/uL (4.3-11.0)
[2019-08-08 06:37] LABS: BUN/CREATININE RATIO 21; CALCIUM 9.1 MG/DL (8.5-10.1); CARBON DIOXIDE 33 MMOL/L (21-32); CHLORIDE 92 MMOL/L (98-107); CREATININE SERUM 0.77 MG/DL (0.60-1.30); GFR ESTIMATED > 60; GLUCOSE 89 MG/DL (70-105); MAGNESIUM 2.2 MG/DL (1.6-2.4); PHOSPHORUS 3.5 MG/DL (2.3-4.7); POTASSIUM 3.9 MMOL/L (3.6-5.0); SODIUM 134 MMOL/L (135-145)
[2019-08-08 08:00] VITALS: BP 150/72
[2019-08-08] MEDS: KCL 10 MEQ TAB (MICRO K) PO SCH (09:29)
[2019-08-08] MEDS: FUROSEMIDE 40 MG/4 ML INJ (LASIX) IVP SCH (09:33)
[2019-08-08] MEDS: ASPIRIN 325 MG (5 GR) TABLET PO SCH (09:33)
[2019-08-08] MEDS: PANTOPRAZOLE 40 MG (PROTONIX) TAB PO SCH (09:33)
[2019-08-08] MEDS: APIXABAN 5 MG (ELIQUIS) TABLET PO SCH (09:33)
[2019-08-08] MEDS ORDERED: APIX5TAB PO (11:28)
[2019-08-08] MEDS ORDERED: ASPI-808 PO (11:28)
[2019-08-08] MEDS ORDERED: CEFD300C3 PO ×2 (11:31→13:36)
--- NOTE | 2019-08-08 11:38 | Discharge Inst-Skilled Nursing ---
Discharge Inst-Skilled NF Reconcile Patient Problems Problems Reviewed?: Yes Chief Complaint Chief complaint: Altered mental status History of present illness: This is a 74-year-old Finnish female with [facility] who has a past medical history of adenocarcinoma lung cancer with metastasis to presented to the ER with altered mental status. Patient was found to have elevated white count in addition to very low sodium level 116 and evid ence of new metastasis into the brain on CT scan. Patient is currently sleeping and significant delirium. We will place on fluid restriction in addition to gentle IV fluids. Patient is sleeping soundly and her is sleeping beside her so I do not disturb anyone. Patient Instructions Patient Problems: Lung cancer with mets to brain Hyponatremia Goal: [place] Patient Instructions: Fluid restriction 1500cc/day Consult/Follow Up/Orders Follow Up Appt.: [facility] rounds Skilled NF Admit to: [facility] Certification (SNF) I certify that [facility] services are required to be given on an inpatient basis because of the above named patient's need for intermediate care on a continuing basis for the conditions(s) for which he/she was receiving inpatient hospital services prior to his/her transfer to the [facility]. Longterm Facility Order: Nursing Services, Salvage Determiner-Evaluate & Treat, Physical Therapy-Evaluate & Treat, Speech Language-Evaluate & Treat Oxygen Delivery Method: Nasal Cannula Resuscitation Status: Do Not Resuscitate New & Resume Previous Orders New Medications: Cefdinir (Cefdinir) 300 Mg Capsule 300 MG PO BID for 2 Days, CAP Apixaban (Eliquis) 5 Mg Tablet 5 MG PO BID for 30 Days, TAB Aspirin (Aspirin) 325 Mg Tablet 325 MG PO DAILY for 30 Days, TAB Continued Medications: Acetaminophen (Tylenol Extra Strength) 500 Mg Tablet 1000 MG PO TID, TAB Albuterol Sulfate (Proair Hfa) 1 Puff Puff 2 PUFF INH Q4H PRN for SHORTNESS OF BREATH, INHALER Albuterol Sulfate (Albuterol Sulfate) 2.5 Mg/0.5 Ml Vial.neb 2.5 MG INH Q6H PRN for SHORTNESS OF BREATH, EACH Furosemide (Furosemide) 20 Mg Tablet 20 MG PO MoWeFr, TAB Guaifenesin (Guaifenesin) 400 Mg Tablet 400 MG PO BID, TAB Levothyroxine Sodium (Levothyroxine Sodium) 88 Mcg Tablet 88 MCG PO DAILY, TAB Lisinopril (Lisinopril) 5 Mg Tablet 5 MG PO HS, TAB Loratadine (Claritin) 10 Mg Tablet 10 MG PO DAILY, TAB Omeprazole (Omeprazole) 20 Mg Capsule.dr 20 MG PO DAILY, CAP Potassium Chloride (Potassium Chloride) 10 Meq Tab.er.prt 10 MEQ PO BID, TAB Timolol Maleate (Timolol Maleate 0.5%) 5 Ml Drops 1 DROP OD BID, EA Discontinued Medications: Apixaban (Eliquis) 2.5 Mg Tablet 2.5 MG PO BID, TAB Levofloxacin (Levaquin) 750 Mg Tablet 750 MG PO DAILY, TAB FILLED 07-31-2019 #5 Christi Mccollum Aug 08, 2019 11:37 CHRISTI MCCOLLUM DO Aug 08, 2019 11:38
--- NOTE | 2019-08-08 12:11 | NUR ---
REPORT CALLED TO STEPHANE, NURSE WHO WILL ASSUME CARE OF THIS PATIENT WHEN SHE [facility]. THIS RN WILL CONT TO MONITOR THIS PATIENT THROUGHOUT THE REMAINDER OF THIS SHIFT OR UNTIL DISCHARGE LATER THI.
--- NOTE | 2019-08-08 13:17 | Discharge Summary ---
MAGALY GARBER, MEDICAL STUDENT 08/08/19 1317: Diagnosis/Chief Complaint Date of Admission Aug 03, 2019 at 12:45 Date of Discharge Discharge Date: Aug 08, 2019 Admission Diagnosis Assessment: Altered mental status Severe hyponatremia of 116 on admissiojn Adenocarcinoma lung cancer with widespread metastasis Mass on brain on CT scan Plan: Oncology consultation Fluid restrict IV fluid supportive care Seizure precautions Primary Care Shavon Joseph Saddle Cutter Discharge Diagnosis Altered Mental Status secondary to infection and new brain mets (1) Metastatic primary lung cancer Status: Acute Assessment & Plan: Follow up outpatient MRI due to new mets found on CT (2) Hyponatremia Status: Resolved (3) Pneumonia Status: Resolved (4) Altered mental state Status: Resolved Discharge Summary Discharge Physical Exam Allergies: Coded Allergies: carboplatin (Verified Allergy, Severe, 07/10/18) REACTION TO CARBOPLATIN Sulfa (Sulfonamide Antibiotics) (Verified Allergy, Mild, 02/04/18) Vitals & I&Os Vital Signs Date Time Temp Pulse Resp B/P (MAP) Pulse Ox O2 Delivery O2 Flow Rate FiO2 08/08/19 09:00 94 Nasal Cannula 1.00 08/08/19 08:00 37.2 80 18 150/72 (98) 08/03/19 16:11 32 General Appearance: No Apparent Distress, WD/WN HEENT: PERRL/EOMI, Pharynx Normal Respiratory: Chest Non Tender, Lungs Clear, Normal Breath Sounds, No Respiratory Distress Cardiovascular: Regular Rate, Rhythm, No Edema, No JVD, No Murmur Gastrointestinal: Normal Bowel Sounds, No Organomegaly, No Pulsatile Mass, Non Tender Extremity: Normal Capillary Refill, Normal Inspection, Normal Range of Motion, No Calf Tenderness, No Pedal Edema Skin: Normal Color, Warm/Dry Neurologic/Psychiatric: Alert, Oriented x3, No Motor/Sensory Deficits, Normal Mood/Affect, 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 The patient was initially hyponatremic and then was placed on fluid restriction and antibiotics. 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 As the hyponatremia resolved and the antibiotic course progressed the patient's mental status improved after waxing and waning for a few days. She is now almost back to baseline in terms of her mental status but is still having trouble with ADLs. She will be discharged to a SNF and would benefit from physical therapy. Labs (last 24 hrs) Laboratory Tests 08/08/19 06:00: White Blood Count 10.4, Red Blood Count 3.27L, Hemoglobin 9.9L, Hematocrit 31L, Mean Corpuscular Volume 93, Mean Corpuscular Hemoglobin 30, Mean Corpuscular Hemoglobin Concent 33, Red Cell Distribution Width 14.5, Platelet Count 232, Mean Platelet Volume 9.1, Neutrophils (%) (Auto) 76H, Lymphocytes (%) (Auto) 8L, Monocytes (%) (Auto) 10, Eosinophils (%) (Auto) 6, Basophils (%) (Auto) 0, Neutrophils # (Auto) 8.0H, Lymphocytes # (Auto) 0.8L, Monocytes # (Auto) 1.0, Eosinophils # (Auto) 0.6H, Basophils # (Auto) 0.0, Sodium Level 134L, Potassium Level 3.9, Chloride Level 92L, Carbon Dioxide Level 33H, Anion Gap 9, Blood Urea Nitrogen 16, Creatinine 0.77, Estimat Glomerular Filtration Rate > 60, BUN/Creatinine Ratio 21, Glucose Level 89, Calcium Level 9.1, Phosphorus Level 3.5, Magnesium Level 2.2 Microbiology 08/03/19 MRSA Screen - Final, Complete MRSA not isolated 08/03/19 Blood Culture - Preliminary, Resulted No growth 08/03/19 Urine Culture - Final, Complete NO GROWTH Patient resulted labs reviewed. Pending Labs Laboratory Tests 08/08/19 06:00: White Blood Count 10.4, Red Blood Count 3.27, Hemoglobin 9.9, Hematocrit 31, Mean Corpuscular Volume 93, Mean Corpuscular Hemoglobin 30, Mean Corpuscular Hemoglobin Concent 33, Red Cell Distribution Width 14.5, Platelet Count 232, Mean Platelet Volume 9.1, Neutrophils (%) (Auto) 76, Lymphocytes (%) (Auto) 8, Monocytes (%) (Auto) 10, Eosinophils (%) (Auto) 6, Basophils (%) (Auto) 0, Neutrophils # (Auto) 8.0, Lymphocytes # (Auto) 0.8, Monocytes # (Auto) 1.0, Eosinophils # (Auto) 0.6, Basophils # (Auto) 0.0, Sodium Level 134, Potassium Level 3.9, Chloride Level 92, Carbon Dioxide Level 33, Anion Gap 9, Blood Urea Nitrogen 16, Creatinine 0.77, Estimat Glomerular Filtration Rate > 60, BUN/Creatinine Ratio 21, Glucose Level 89, Calcium Level 9.1, Phosphorus Level 3.5, Magnesium Level 2.2 Discussion & Recommendations Recommend rehabilitation and outpatient MRI. Patient will be discharged with 2 days of Omnicef to [facility] Home Medications: Active Scripts Active Cefdinir 300 Mg Capsule 300 Mg PO BID 2 Days Aspirin 325 Mg Tablet 325 Mg PO DAILY 30 Days Eliquis (Apixaban) 5 Mg Tablet 5 Mg PO BID 30 Days Reported Albuterol Sulfate 2.5 Mg/0.5 Ml Vial.neb 2.5 Mg INH Q6H PRN Claritin (Loratadine) 10 Mg Tablet 10 Mg PO DAILY Furosemide 20 Mg Tablet 20 Mg PO MOWEFR Levothyroxine Sodium 88 Mcg Tablet 88 Mcg PO DAILY Proair Hfa (Albuterol Sulfate) 1 Puff Puff 2 Puff INH Q4H PRN Potassium Chloride 10 Meq Tab.er.prt 10 Meq PO BID Tylenol Extra Strength (Acetaminophen) 500 Mg Tablet 1,000 Mg PO TID Guaifenesin 400 Mg Tablet 400 Mg PO BID Lisinopril 5 Mg Tablet 5 Mg PO HS Omeprazole 20 Mg Capsule.dr 20 Mg PO DAILY Timolol Maleate 0.5% (Timolol Maleate) 5 Ml Drops 1 Drop OD BID Instructions to patient/family Please see electronic discharge instructions given to patient. Clinical Quality Measures DVT/VTE Risk/Contraindication: Risk Factor Score Per Nursin RFS Level Per Nursing on Admit: 4+=Very High CHRISTI PARIKH DO 08/08/192100: Discharge Summary Discharge Physical Exam Allergies: Coded Allergies: carboplatin (Verified Allergy, Severe, 07/10/18) REACTION TO CARBOPLATIN Sulfa (Sulfonamide Antibiotics) (Verified Allergy, Mild, 02/04/18) General Appearance: No Apparent Distress, WD/WN Respiratory: Lungs Clear Cardiovascular: Regular Rate, Rhythm Hospital Course Was the Problem List Reviewed?: Yes Hospital course: Pt had an uneventful hospital course, she was placed in the ICU for altered mental status, sodium level 116, fluid restriction occurred, normal saline initiated at gentle rate that returned back to near normal at [address] scan revealed lung cancer metastasis. She did require a usp placement, [facility] had accepted her, all orders were written and Pt will complete Omnicef antibiotics and will maintain oxygen at the usp. Discussion & Recommendations Discharge Planning: <30 minutes discharge planning Supervisory-Addendum Brief Verification & Attestation Participated in pt care: history, MDM, physical Personally performed: exam, history, MDM, supervision of care Care discussed with: Medical Student Procedures: n/a Results interpretation: Verified all documentation Verification and Attestation of Medical Student E/M Service A medical student performed and documented this service in my presence. I reviewed and verified all information documented by the medical student and made modifications to such information, when appropriate. I personally performed the physical exam and medical decision making. Christi Parikh, Aug 08, 2019,21:01 Problem Qualifiers (1) Metastatic primary lung cancer: Laterality: unspecified laterality Qualified Codes: C34.90 - Malignant neoplasm of unspecified part of unspecified bronchus or lung (2) Pneumonia: Pneumonia type: due to unspecified organism Laterality: bilateral Lung location: unspecified part of lung Qualified Codes: J18.9 - Pneumonia, unspecified organism MAGALY GARBER, MEDICAL STUDENT Aug 08, 2019 13:17 CHRISTI PARIKH DO Aug 08, 2019 21:01
--- NOTE | 2019-08-08 14:03 | Cardiology Progress Note ---
Subjective Date Seen by Provider: Aug 08, 2019 Time Seen by Provider: 10:30 Subjective/Events-last exam Patient sitting up in chair, no new complaints. Denies any chest pain or dyspnea. Review of Systems General: No Chills, No Night Sweats, No Fatigue, No Malaise, No Appetite, No Other HEENT: No Head Aches, No Visual Changes, No Eye Pain, No Ear Pain, No Dysphasia, No Sinus Congestion, No Post Nasal Drip, No Sore Throat, No Other Pulmonary: No Dyspnea, No Cough, No Pleuritic Chest Pain, No Other Cardiovascular: No: Chest Pain, Palpitations, Orthopnea, Paroxysmal Noc. Dyspnea, Edema, Lt Headedness, Other Objective-Cardiology Exam Last Set of Vital Signs Vital Signs 08/03/19 08/08/19 08/08/19 16:11 08:00 09:00 Temp 37.2 Pulse 80 Resp 18 B/P (MAP) 150/72 (98) Pulse Ox 94 O2 Delivery Nasal Cannula O2 Flow Rate 1.00 FiO2 32 Capillary Refill : NONELess Than 3 Seconds I&O Intake and Output 08/08/19 00:00 Intake Total 1760 ml Balance 1760 ml Intake Oral 1640 ml IV Total 120 ml # Voids 13 # Bowel Movements 10 General: Alert, Oriented X3, Cooperative HEENT: Atraumatic, PERRLA Neck: Supple, No JVD, No Thyromegaly Lungs: Normal Air Movement, Other Heart: Regular Rate, Normal S1, Normal S2, No Murmurs Abdomen: Normal Bowel Sounds, Soft, No Tenderness, No Hepatosplenomegaly, No Masses Extremities: No Clubbing, No Cyanosis, No Edema, Normal Pulses, No Tenderness/Swelling Skin: No Rashes, No Breakdown, No Significant Lesion Neuro: Normal Gait, Normal Speech, Strength at 5/5 X4 Ext, Normal Tone, Sensation Intact Psych/Mental Status: Mental Status NL, Mood NL Results Lab Laboratory Tests 08/08/19 06:00 A/P-Cardiology Admission Diagnosis sepsis Pneumonia Delirium Coronary artery disease Assessment/Plan Sepsis and pneumonia, improved on antibiotic, clinically better. Managed by primary care team Acute delirium, secondary to above. Mental status is better. Continue to monitor Congestive heart failure, acute on chronic left ventricular diastolic dysfunction, normal systolic function, echocardiogram done on August 03, 2019 showing ejection fraction 65-70 percent, moderate TR, mild AI, pulmonary hypertension with PA pressure 60 mmHg. Hyponatremia, better, continue to monitor electrolytes. Slight elevation in troponin, conservative management at this time is recommended CTA of the chest from 07-29-2019 showed - Small burden of pulmonary emboli to the subsegmental branches of the right lung. No evidence of right heart strain or pulmonary infarct. Findings suggestive of disease progression with increase in size and number of lung nodules and increase in size of the metastatic lesions throughout the liver. Coronary artery disease, status post cardiac catheterization on October 16, 2014 which showed mild disease nonobstructive disease with normal LV function, severe pulmonary hypertension Metastatic adenocarcinoma of the lung, stage IV, followed and managed by Dr. Wick History of DVT in 1975 Previously on OAC with Eliquis that is currently being held by the Medical Service History of Graves' disease, followed and managed by primary care physician Surgical history: varicose vein stripping 1976, thyroidectomy 1980; hysterectomy 1990; cataract surgery 2004 Patient was seen and evaluated with May, examination performed, management plan was discussed, agree with the current scribed note, I made few changes to the note using Italic font Patient was sitting in a chair, feeling better, reporting improvement Managed by primary care physician and being transferred to [facility] Continue to monitor as an outpatient Clinical Quality Measures DVT/VTE Risk/Contraindication: Risk Factor Score Per Nursin RFS Level Per Nursing on Admit: 4+=Very High MAY AUGUSTIN Aug 08, 2019 14:03 CHANEL TOMLINSON MD Aug 08, 2019 14:16
[2019-08-08 14:17] VITALS: BP 150/72
--- NOTE | 2019-08-08 15:25 | Physical Therapy Daily Note ---
PT Daily Note-Current Subjective Patient in recliner pre tx, agrees to PT, has no complaints of pain. Family is in the room to translate. Patient is discharging to [facility] this afternoon. Appearance Patient in restroom post tx, OT will take over from here. Mental Status Patient Orientation: Person, Unable to Assess Transfers SCALE: Activities may be completed with or without assistive devices. 2-Kgjlfkrnce-hqveoyk completes the activity by him/herself with no assistance from a helper. 5-Set-up or Clean-up Assistance-helper sets up or cleans up; patient completes activity. [place] assists only prior to or following the activity. 4-Supervision or Touching Assistance-helper provides verbal cues and/or touching/steadying and/or contact guard assistance as patient completes activity. Assistance may be provided throughout the activity or intermittently. 3-Partial/Moderate Assistance-helper does LESS THAN HALF the effort. [place] lifts, holds or supports trunk or limbs, but provides less than half the effort. 2-Substantial/Maximal Assistance-helper does MORE THAN HALF the effort. [place] lifts or holds trunk or limbs and provides more than half the effort. 7-Jdvbxmbzk-npabnr does ALL the effort. Patient does none of the effort to complete the activity. Or, the assistance of 2 or more helpers is required for the patient to complete the activity. If activity was not attempted, code reason: 7-Patient Refused. 9-Not Applicable-not attempted and the patient did not perform the activity before the current illness, exacerbation or injury. 10-Not Attempted due to Environmental Limitations-(lack of equipment, weather restraints, etc.). 88-Not Attempted due to Medical Conditions or Safety Concerns. Sit to Stand (QC): 4 Chair/Xzh-lh-Iugzt Xfer(QC): 4 CGA Gait Training Distance: 180' Walk 10 feet (QC): 4 Walk 50 ft with 2 Turns(QC): 4 Walk 150 ft (QC): 4 Gait Persons Needed: 1 Gait Assistive Device: FWW Slow but steady ambulation, poor foot clearance. No O2 today. Treatments ambulation, transfers Assessment Current Status: Fair Progress improved endurance PT Chcf Goals Machine Straw Hat Presser Goals PT Machine Straw Hat Presser Goals Time Frame: Aug 25, 2019 Roll Left & Right (QC): 6 Sit to Lying (QC): 6 Lying-Sitting on Side/Bed(QC): 6 Sit to Stand (QC): 6 Chair/Pan-rq-Mxord Xfer(QC): 6 Toilet Transfer (QC): 6 Car Transfer (QC): 6 Does the Patient Walk: Yes Walk 10 feet (QC): 6 Walk 50ft with 2 Turns (QC): 6 Walk 150 ft (QC): 6 Walking 10ft on Uneven Surface: 6 1 Step (curb) (QC): 6 PT Plan Problem List Problem List: Activity Tolerance, Functional Strength, Safety, Balance, Gait, Transfer, Bed Mobility Treatment/Plan Treatment Plan: Continue Plan of Care Treatment Plan: Bed Mobility, Education, Functional Activity Daniel, Functional Strength, Gait, Safety, Therapeutic Exercise, Transfers Treatment Duration: Aug 25, 2019 Frequency: 6 times per week Estimated Hrs Per Day: .25 hour per day Patient and/or Family Agrees t: Yes Safety Risks/Education Patient Education: Gait Training, Transfer Techniques, Correct Positioning, Safety Issues Teaching Recipient: Patient Teaching Methods: Demonstration, Discussion Response to Teaching: Reinforcement Needed Time/GCodes Time In: 1500 Time Out: 1510 Total Billed Treatment Time: 10 Total Billed Treatment 1 visit GT 10JOANNE JUNE PT Aug 08, 2019 15:25
--- NOTE | 2019-08-08 15:35 | Occupational Ther Daily Note ---
OT Current Status-Daily Note Subjective Pt finishing up with PT, stated she needed to use the restroom. She did not report any pain during tx, her daughter states she is transferring to [facility] this afternoon. ADL-Treatment Therapy Code Descriptions/Definitions Functional [place] Measure: 0=Not Assessed/NA 4=Minimal Assistance 1=Total Assistance 5=Supervision or Setup 2=Maximal Assistance 6=Modified [place] 3=Moderate Assistance 7=Complete IndependenceSCALE: Activities may be completed with or without assistive devices. 3-Lrjbtlcemx-dmljboe completes the activity by him/herself with no assistance from a helper. 5-Set-up or Clean-up Assistance-helper sets up or cleans up; patient completes activity. [place] assists only prior to or following the activity. 4-Supervision or Touching Assistance-helper provides verbal cues and/or touching/steadying and/or contact guard assistance as patient completes activity. Assistance may be provided throughout the activity or intermittently. 3-Partial/Moderate Assistance-helper does LESS THAN HALF the effort. [place] lifts, holds or supports trunk or limbs, but provides less than half the effort. 2-Substantial/Maximal Assistance-helper does MORE THAN HALF the effort. [place] lifts or holds trunk or limbs and provides more than half the effort. 2-Namzzaxgw-zghmwy does ALL the effort. Patient does none of the effort to complete the activity. Or, the assistance of 2 or more helpers is required for the patient to complete the activity. If activity was not attempted, code reason: 7-Patient Refused. 9-Not Applicable-not attempted and the patient did not perform the activity before the current illness, exacerbation or injury. 10-Not Attempted due to Environmental Limitations-(lack of equipment, weather restraints, etc.). 88-Not Attempted due to Medical Conditions or Safety Concerns. Toileting Hygiene (QC): 4 (Pt able to complete toilet hygiene and clothing management with CGA) Toilet Transfer (QC): 4 (CGA on/off toielt.) Other Treatment Pt finishing with PT after walk, she ambulated to bathroom with FWW with CGA to complete toileting. She then transferred to her recliner. Post OT session, pt sitting upright in recliner, call light in reach and all needs met. Education OT Patient Education: Correct positioning, Energy conservation, Modified ADL techniques, Progress toward Goal/Update tx plan, Purpose of tx/functional activities Teaching Recipient: Patient, Family Teaching Methods: Demonstration Response to Teaching: Return Demonstration OT Sugar Drier Goals Alf Goals Time Frame: Aug 13, 2019 Eating (QC): 6 (met) Oral Hygiene (QC): 6 Toileting Hygiene (QC): 4 Shower/Bathe Self (QC): 4 Upper Body Dressing (QC): 5 Lower Body Dressing (QC): 4 On/Off Footwear (QC): 4 Additional Goals: 1-Demonstrate ADL Tasks, 2-Verbalize Understanding, 3- ImproveStrength/Daniel 1=Demonstrate adherence to instructed precautions during ADL tasks. 2=Patient will verbalize/demonstrate understanding of assistive devices/modifications for ADL. 3=Patient will improve strength/tolerance for activity to enable patient to perform ADL's. OT Education/Plan Problem List/Assessment Assessment: Decreased Activ Tolerance, Decreased UE Strength, Impaired I ADL's, Impaired Self-Care Skills Discharge Recommendations Plan/Recommendations: Continue POC Treatment Plan/Plan of Care Patient would benefit from OT for education, treatment and training to promote independence in ADL's, mobility, safety and/or upper extremity function for ADL's. Plan of Care: ADL Retraining, Caregiver Training, Functional Mobility, UE Funct Exercise/Act Treatment Duration: Aug 13, 2019 Frequency: 5 times per week Estimated Hrs Per Day: .25 hour per day Agreement: Yes Rehab Potential: Fair Time/GCodes Start Time: 15:10 Stop Time: 15:20 Total Time Billed (hr/min): 10 Billed Treatment Time 1, ADL YEN FUNG OT Aug 08, 2019 15:35
--- NOTE | 2019-08-11 00:02 | Physician Query Clarification ---
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 Lab WBC 20.2 and Lactat 1.16 on 08/03/2019 Treatment: Inj Vancomycin and Zosyn, IVF -NS 150 ml /hr Question: Based on the above documentation kindly specify the etiology of AMS. Please document a response in Progress Note or Discharge Summary. 1. SIADH 2. Brain Cancer 3. Sepsis 4. Other, with explanation of clinical findings. 5. Undetermined, no explanation for clinical findings. PHYSICIAN RESPONSE Diagnosis clinically valid: Yes, Conditon resolved Please remember a lack of response to the above will prompt a phone page by CDI/Coding staff. In responding to this query, please exercise your independent professional judgment. The purpose of this communication is to more accurately reflect the complexity of your patients condition. The fact that a question is asked does not imply that any particular answer is desired or expected. Thank you for your timely response to this clarification. Requestors name: [John ] Phone # [[phone] ] THIS PHYSICIAN QUERY FORM IS A PERMANENT PART OF THE MEDICAL RECORD MANUELITO OWEN Aug 11, 2019 00:02 MINA PARIKH DO Aug 16, 2019 06:56
--- NOTE | 2019-08-17 06:15 | Physician Query Clarification ---
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 Lab WBC 20.2 and Lactat 1.16 on 08/03/2019 Treatment: Inj Vancomycin and Zosyn, IVF -NS 150 ml /hr Based on the above documentation kindly specify the etiology of AMS. Please document a response in Progress Note or Discharge Summary. 1. SIADH 2. Brain Cancer 3. Sepsis 4. Other, with explanation of clinical findings. 5. Undetermined, no explanation for clinical findings. PHYSICIAN RESPONSE What condition reflects above: 1 Please remember a lack of response to the above will prompt a phone page by CDI/Coding staff. In responding to this query, please exercise your independent professional judgment. The purpose of this communication is to more accurately reflect the complexity of your patients condition. The fact that a question is asked does not imply that any particular answer is desired or expected. Thank you for your timely response to this clarification. Requestors name: [Nano ] Phone # [ [phone] ] THIS PHYSICIAN QUERY FORM IS A PERMANENT PART OF THE MEDICAL RECORD NANO MALONEY Aug 17, 2019 06:15 MINA PARIKH DO Aug 17, 2019 13:01
== END 2019-08-08 15:30 | DRG 643 ==
LOC: EDUNIT# 10:28 → ER 10:31 → ICU 12:45 → 4TH 08-05 11:46
PROVIDERS: ADMIT Internal Medicine; ATTEND Internal Medicine
DX: E22.2 Syndrome of inappropriate secretion of antidiuretic hormone (principal); J18.9 Pneumonia, unspecified organism; I50.33 Acute on chronic diastolic (congestive) heart failure; A41.9 Sepsis, unspecified organism; C79.31 Secondary malignant neoplasm of brain; C78.7 Secondary malignant neoplasm of liver and intrahepatic bile duct; I11.0 Hypertensive heart disease with heart failure; Z66 Do not resuscitate; E87.6 Hypokalemia; E89.0 Postprocedural hypothyroidism; I27.20 Pulmonary hypertension, unspecified; I25.10 Atherosclerotic heart disease of native coronary artery without angina pectoris; K21.9 Gastro-esophageal reflux disease without esophagitis; I87.2 Venous insufficiency (chronic) (peripheral); I08.3 Combined rheumatic disorders of mitral, aortic and tricuspid valves; H35.30 Unspecified macular degeneration; J30.2 Other seasonal allergic rhinitis; Z85.118 Personal history of other malignant neoplasm of bronchus and lung; Z92.3 Personal history of irradiation; Z92.21 Personal history of antineoplastic chemotherapy; Z99.81 Dependence on supplemental oxygen; Z86.711 Personal history of pulmonary embolism
CPT/HCPCS: 36415; 51702; 70470; 71045; 80048; 80053; 81000; 83605; 83735; 83880; 84100; 84295; 84484; 85007; 85025; 85027; 85610; 85730; 86141; 87040; 87081; 87088; 87804; 93005; 93306; 94640; 96365

== ENCOUNTER 2019-08-28 09:03 | Outpatient (RCR) | payer MEDICAID ==
[2019-07-10 09:15] LABS: BASOPHILS % (AUTO) 0 % (0-10); EOSINOPHILS # (AUTO) 0.2 10^3/uL (0.0-0.3); EOSINOPHILS % (AUTO) 3 % (0-10); HEMATOCRIT 34 % (35-52); HEMOGLOBIN 11.1 G/DL (11.5-16.0); LYMPHOCYTES # (AUTO) 0.7 X 10^3 (1.0-4.0); LYMPHOCYTES % (AUTO) 9 % (12-44); MEAN CORPUSCULAR HEMOGLOBIN 31 PG (25-34); MEAN CORPUSCULAR HGB CONC 33 G/DL (32-36); MEAN CORPUSCULAR VOLUME 93 FL (80-99); MEAN PLATELET VOLUME 9.7 FL (7.4-10.4); MONOCYTES # (AUTO) 0.9 X 10^3 (0.0-1.0); MONOCYTES % (AUTO) 12 % (0-12); NEUTROPHILS # (AUTO) 5.8 X 10^3 (1.8-7.8); NEUTROPHILS % (AUTO) 76 % (42-75); PLATELET COUNT 130 10^3/uL (130-400); RED CELL DISTRIBUTION WIDTH 14.7 % (10.0-14.5); WHITE BLOOD COUNT 7.7 10^3/uL (4.3-11.0)
[2019-07-10 09:24] LABS: BUN/CREATININE RATIO 20; CALCIUM 9.1 MG/DL (8.5-10.1); CARBON DIOXIDE 22 MMOL/L (21-32); CHLORIDE 102 MMOL/L (98-107); CREATININE SERUM 0.85 MG/DL (0.60-1.30); GFR ESTIMATED > 60; GLUCOSE 153 MG/DL (70-105); POTASSIUM 3.9 MMOL/L (3.6-5.0); SODIUM 136 MMOL/L (135-145)
[2019-07-17 09:32] LABS: BASOPHILS % (AUTO) 0 % (0-10); EOSINOPHILS # (AUTO) 0.3 10^3/uL (0.0-0.3); EOSINOPHILS % (AUTO) 3 % (0-10); HEMATOCRIT 34 % (35-52); HEMOGLOBIN 11.1 G/DL (11.5-16.0); LYMPHOCYTES # (AUTO) 0.8 X 10^3 (1.0-4.0); LYMPHOCYTES % (AUTO) 9 % (12-44); MEAN CORPUSCULAR HEMOGLOBIN 30 PG (25-34); MEAN CORPUSCULAR HGB CONC 33 G/DL (32-36); MEAN CORPUSCULAR VOLUME 93 FL (80-99); MEAN PLATELET VOLUME 9.5 FL (7.4-10.4); MONOCYTES # (AUTO) 0.7 X 10^3 (0.0-1.0); MONOCYTES % (AUTO) 8 % (0-12); NEUTROPHILS # (AUTO) 6.9 X 10^3 (1.8-7.8); NEUTROPHILS % (AUTO) 80 % (42-75); PLATELET COUNT 106 10^3/uL (130-400); RED CELL DISTRIBUTION WIDTH 14.6 % (10.0-14.5); WHITE BLOOD COUNT 8.6 10^3/uL (4.3-11.0)
[2019-07-17 10:00] LABS: BUN/CREATININE RATIO 19; CALCIUM 9.2 MG/DL (8.5-10.1); CARBON DIOXIDE 23 MMOL/L (21-32); CHLORIDE 99 MMOL/L (98-107); CREATININE SERUM 0.85 MG/DL (0.60-1.30); GFR ESTIMATED > 60; GLUCOSE 152 MG/DL (70-105); POTASSIUM 4.1 MMOL/L (3.6-5.0); SODIUM 134 MMOL/L (135-145)
[2019-07-24 09:29] LABS: BASOPHILS % (AUTO) 0 % (0-10); EOSINOPHILS # (AUTO) 0.2 10^3/uL (0.0-0.3); EOSINOPHILS % (AUTO) 1 % (0-10); HEMATOCRIT 34 % (35-52); HEMOGLOBIN 11.2 G/DL (11.5-16.0); LYMPHOCYTES # (AUTO) 0.7 X 10^3 (1.0-4.0); LYMPHOCYTES % (AUTO) 4 % (12-44); MEAN CORPUSCULAR HEMOGLOBIN 30 PG (25-34); MEAN CORPUSCULAR HGB CONC 33 G/DL (32-36); MEAN CORPUSCULAR VOLUME 92 FL (80-99); MEAN PLATELET VOLUME 9.5 FL (7.4-10.4); MONOCYTES # (AUTO) 1.8 X 10^3 (0.0-1.0); MONOCYTES % (AUTO) 12 % (0-12); NEUTROPHILS # (AUTO) 12.6 X 10^3 (1.8-7.8); NEUTROPHILS % (AUTO) 83 % (42-75); PLATELET COUNT 197 10^3/uL (130-400); RED CELL DISTRIBUTION WIDTH 14.1 % (10.0-14.5); WHITE BLOOD COUNT 15.2 10^3/uL (4.3-11.0)
[2019-07-24 09:48] LABS: ALANINE AMINOTRANSFERASE 17 U/L (0-55); ALBUMIN 4.2 GM/DL (3.2-4.5); ALKALINE PHOSPHATASE 204 U/L (40-136); BILIRUBIN,TOTAL 0.9 MG/DL (0.1-1.0); BUN/CREATININE RATIO 20; CALCIUM 9.2 MG/DL (8.5-10.1); CARBON DIOXIDE 22 MMOL/L (21-32); CHLORIDE 98 MMOL/L (98-107); CREATININE SERUM 0.76 MG/DL (0.60-1.30); GFR ESTIMATED > 60; GLUCOSE 100 MG/DL (70-105); POTASSIUM 3.9 MMOL/L (3.6-5.0); SODIUM 132 MMOL/L (135-145); TOTAL PROTEIN 7.9 GM/DL (6.4-8.2)
--- NOTE | 2019-07-24 12:20 | Diagnostic Imaging Report ---
INDICATION: Shortness of breath and weakness for several days.. TECHNIQUE: Two view chest 9:46 AM CORRELATION STUDY: 07/02/2019 FINDINGS: Right IJ Ujovex-t-Xjzt catheter, stable. Heart size and mediastinal configuration appears generally stable as well. There is again demonstration rather coarse, fibrotic-type change about both lung ruiz. Areas of fibrosis most pronounced over the right upper lobe as well as right lung base. Some right lung volume loss. Findings may be slightly overall increased particularly at the right lung base. Visualized osseous structures are unremarkable. IMPRESSION: 1. Severe, multifocal areas of fibrosis throughout both lung ruiz again demonstrated. Findings do appear to be perhaps slightly improved overall progressed particularly at the right lung base. Dictated by: Dictated on workstation # [id number]
[2019-08-14 09:21] LABS: BASOPHILS # (AUTO) 0.1 10^3/uL (0.0-0.1); BASOPHILS % (AUTO) 1 % (0-10); EOSINOPHILS # (AUTO) 0.6 10^3/uL (0.0-0.3); EOSINOPHILS % (AUTO) 6 % (0-10); HEMATOCRIT 34 % (35-52); HEMOGLOBIN 10.7 G/DL (11.5-16.0); LYMPHOCYTES # (AUTO) 1.1 X 10^3 (1.0-4.0); LYMPHOCYTES % (AUTO) 9 % (12-44); MEAN CORPUSCULAR HEMOGLOBIN 29 PG (25-34); MEAN CORPUSCULAR HGB CONC 31 G/DL (32-36); MEAN CORPUSCULAR VOLUME 94 FL (80-99); MEAN PLATELET VOLUME 9.1 FL (7.4-10.4); MONOCYTES # (AUTO) 0.7 X 10^3 (0.0-1.0); MONOCYTES % (AUTO) 6 % (0-12); NEUTROPHILS # (AUTO) 8.9 X 10^3 (1.8-7.8); NEUTROPHILS % (AUTO) 78 % (42-75); PLATELET COUNT 195 10^3/uL (130-400); RED CELL DISTRIBUTION WIDTH 15.5 % (10.0-14.5); WHITE BLOOD COUNT 11.4 10^3/uL (4.3-11.0)
[2019-08-14 09:48] LABS: BILIRUBIN,URINE NEGATIVE (NEGATIVE); CLARITY,URINE CLEAR; COLOR,URINE YELLOW; GLUCOSE, URINE (UA) NEGATIVE (NEGATIVE); KETONES,URINE NEGATIVE (NEGATIVE); LEUKOCYTE ESTERASE ,URINE NEGATIVE (NEGATIVE); NITRITE,URINE NEGATIVE (NEGATIVE); PH,URINE 5.5 (5-9); PROTEIN,URINE NEGATIVE (NEGATIVE)
[2019-08-14 09:57] LABS: ALANINE AMINOTRANSFERASE 23 U/L (0-55); ALBUMIN 4.1 GM/DL (3.2-4.5); ALKALINE PHOSPHATASE 268 U/L (40-136); BILIRUBIN,TOTAL 0.6 MG/DL (0.1-1.0); BUN/CREATININE RATIO 24; CALCIUM 9.8 MG/DL (8.5-10.1); CARBON DIOXIDE 27 MMOL/L (21-32); CHLORIDE 98 MMOL/L (98-107); CREATININE SERUM 0.91 MG/DL (0.60-1.30); GFR ESTIMATED > 60; GLUCOSE 201 MG/DL (70-105); POTASSIUM 4.6 MMOL/L (3.6-5.0); SODIUM 135 MMOL/L (135-145); TOTAL PROTEIN 8.1 GM/DL (6.4-8.2)
[2019-08-14 09:58] LABS: WBC,URINE 0-2 /HPF
[2019-08-14 09:59] LABS: BACTERIA,URINE NEGATIVE /HPF; HYALINE CASTS, URINE RARE /LPF; SQUAMOUS EPITHELIAL CELL,UR 0-2 /HPF
[~2019-08-28 09:03] MED LIST changes: +ALB0.5V INH; +APIX5TAB PO; +ASPI-808 PO; +CEFD300C3 PO; +GEMCITABINE HCL 1 GM, GEMCITABINE HCL 300 MG in NS (IVPB) CANCER CENTER 100 ML IV SCH; +LEVO750T9 PO; +NS IV 1000 ML (CANCER CTR) IV SCH; +ONDANSETRON MDV (CANCER CENTER 8 MG, DEXAMETHASONE INJ (CANCER CTR) 4 MG in NS (IVPB) C... IV SCH
[2019-08-28 09:50] LABS: BASOPHILS % (AUTO) 0 % (0-10); EOSINOPHILS # (AUTO) 0.4 10^3/uL (0.0-0.3); EOSINOPHILS % (AUTO) 5 % (0-10); HEMATOCRIT 30 % (35-52); HEMOGLOBIN 9.8 G/DL (11.5-16.0); LYMPHOCYTES # (AUTO) 0.9 X 10^3 (1.0-4.0); LYMPHOCYTES % (AUTO) 10 % (12-44); MEAN CORPUSCULAR HEMOGLOBIN 30 PG (25-34); MEAN CORPUSCULAR HGB CONC 33 G/DL (32-36); MEAN CORPUSCULAR VOLUME 91 FL (80-99); MEAN PLATELET VOLUME 9.3 FL (7.4-10.4); MONOCYTES # (AUTO) 0.8 X 10^3 (0.0-1.0); MONOCYTES % (AUTO) 9 % (0-12); NEUTROPHILS % (AUTO) 76 % (42-75); PLATELET COUNT 109 10^3/uL (130-400); RED CELL DISTRIBUTION WIDTH 14.8 % (10.0-14.5); WHITE BLOOD COUNT 9.2 10^3/uL (4.3-11.0)
[2019-08-28 10:09] LABS: ALANINE AMINOTRANSFERASE 26 U/L (0-55); ALKALINE PHOSPHATASE 235 U/L (40-136); BILIRUBIN,TOTAL 0.8 MG/DL (0.1-1.0); BUN/CREATININE RATIO 18; CALCIUM 9.1 MG/DL (8.5-10.1); CARBON DIOXIDE 24 MMOL/L (21-32); CHLORIDE 90 MMOL/L (98-107); CREATININE SERUM 0.74 MG/DL (0.60-1.30); GFR ESTIMATED > 60; GLUCOSE 161 MG/DL (70-105); POTASSIUM 3.7 MMOL/L (3.6-5.0); TOTAL PROTEIN 7.4 GM/DL (6.4-8.2)
[2019-08-28 10:14] LABS: SODIUM 123 MMOL/L (135-145)
[2019-08-29] MEDS ORDERED: CEPH500T PO (09:06)
[2019-09-03] MEDS ORDERED: GUAI-977 PO (12:07)
[2019-09-03] MEDS ORDERED: POLY17PO6 PO (12:08)
[2019-09-03] MEDS ORDERED: SOLI10TA7 PO (12:08)
[2019-09-03] MEDS ORDERED: NITR100C10 PO (12:08)
[2019-09-03] MEDS ORDERED: MAG30ORA2 PO (12:08)
[2019-09-03] MEDS ORDERED: APIX2.5T PO (12:08)
[2019-09-03] MEDS ORDERED: NF-NACL1GT PO (12:19)
[2019-09-07] MEDS ORDERED: Lorazepam PO (10:30)
[2019-09-07] MEDS ORDERED: CEFD300C3 PO (10:30)
[2019-09-07] MEDS ORDERED: FURO-124 PO (10:30)
[2019-09-07] MEDS ORDERED: FURO-125 PO (13:20)
== END 2019-10-08 | disposition home or self-care (01) ==
LOC: ONC 09:03
PROVIDERS: ATTEND Internal Medicine Hematology & Oncology
DX: Z51.11 Encounter for antineoplastic chemotherapy (principal); C34.11 Malignant neoplasm of upper lobe, right bronchus or lung; C79.51 Secondary malignant neoplasm of bone; C78.01 Secondary malignant neoplasm of right lung; C78.02 Secondary malignant neoplasm of left lung
CPT/HCPCS: 36591; 71046; 80048; 80053; 81000; 83615; 85025; 87804; 96375; 96413; 99213

== ENCOUNTER 2019-08-29 07:01 | Emergency (ER) | payer MEDICAID ==
[~2019-08-29] VITALS: Ht 160 cm; Wt 67.0 kg
[~2019-08-29 07:01] MED LIST changes: -GEMCITABINE HCL 1 GM, GEMCITABINE HCL 300 MG in NS (IVPB) CANCER CENTER 100 ML IV SCH; -NS IV 1000 ML (CANCER CTR) IV SCH; -ONDANSETRON MDV (CANCER CENTER 8 MG, DEXAMETHASONE INJ (CANCER CTR) 4 MG in NS (IVPB) C... IV SCH
--- NOTE | 2019-08-29 07:16 | ED General ---
General Chief Complaint: Trauma-Non Activation Stated Complaint: UTI Nursing Triage Note: ARRIVED VIA WC WITH SON FROM [facility]. SON STATES SHE FELL THIS MORNING AROUND 0300 HITTING THE RIGHT SIDE OF HER FACE. PT IS ON A BLOOD THINNER. SON ALSO STATES SHE HAS A HX OF UTI'S AND HER SODIUM WAS LOW YESTERDAY AT THE [facility]. Nursing Sepsis Screen: No Definite Risk Source of Information: Family Exam Limitations: Language Barrier History of Present Illness Date Seen by Provider: Aug 29, 2019 Time Seen by Provider: 07:14 Initial Comments 74-year-old female brought in following an unwitnessed fall. Patient [facility] at the senior living when she [facility]. She does have a small contusion on her right forehead. His bleeding she possibly hit the sink. She is on Eliquis. Patient has also been complaining of some urinary symptoms with frequency and dysuria. Patient has a known history of urinary tract infections. Patient also has a known history of low sodium. She had labs checked at the cancer center yesterday and her sodium was 125. There is no reports of any fevers chills nausea or vomiting. Allergies and Home Medications Allergies Coded Allergies: carboplatin (Verified Allergy, Severe, 07/10/18) REACTION TO CARBOPLATIN Sulfa (Sulfonamide Antibiotics) (Verified Allergy, Mild, 02/04/18) Home Medications Acetaminophen 500 Mg Tablet, 1,000 MG PO TID, (Reported) Albuterol Sulfate 1 Puff Puff, 2 PUFF INH Q4H PRN for SHORTNESS OF BREATH, (Reported) Albuterol Sulfate 2.5 Mg/0.5 Ml Vial.neb, 2.5 MG INH Q6H PRN for SHORTNESS OF BREATH, (Reported) Apixaban 5 Mg Tablet, 5 MG PO BID Prescribed by: MIAN PARIKH on 08/08/19 1128 Aspirin 325 Mg Tablet, 325 MG PO DAILY Prescribed by: MINA PARIKH on 08/08/19 1128 Cefdinir 300 Mg Capsule, 300 MG PO BID Prescribed by: MINA PARIKH on 08/08/19 1336 Cephalexin 500 Mg Tablet, 500 MG PO QID Prescribed by: AVELINO VICTOR on 08/29/19 0906 Furosemide 20 Mg Tablet, 20 MG PO MoWeFr, (Reported) Guaifenesin 400 Mg Tablet, 400 MG PO BID, (Reported) Levothyroxine Sodium 88 Mcg Tablet, 88 MCG PO DAILY, (Reported) Lisinopril 5 Mg Tablet, 5 MG PO HS, (Reported) Loratadine 10 Mg Tablet, 10 MG PO DAILY, (Reported) Omeprazole 20 Mg Capsule.dr, 20 MG PO DAILY, (Reported) Potassium Chloride 10 Meq Tab.er.prt, 10 MEQ PO BID, (Reported) Timolol Maleate 5 Ml Drops, 1 DROP OD BID, (Reported) Patient Home Medication List Home Medication List Reviewed: Yes Review of Systems Review of Systems Constitutional: No chills, No fever, No malaise EENTM: see HPI Respiratory: No cough, No short of breath Cardiovascular: No chest pain Gastrointestinal: No abdominal pain, No nausea, No vomiting Genitourinary: see HPI, dysuria, frequency Musculoskeletal: no symptoms reported Skin: see HPI Past Ngqptfl-[id number] Hx Past Med/Social Hx: Reviewed Nursing Past Med/Soc Hx Patient Social History Alcohol Use: Denies Use Recreational Drug Use: No Smoking Status: Never a Smoker Recent Foreign Travel: No Contact w/Someone Who Travel: No Recent Infectious Disease Expo: No Recent Hopitalizations: No Immunizations Up To Date Tetanus Booster (TDap): Unknown Date of Pneumonia Vaccine: Apr 27, 2011 Date of Influenza Vaccine: Mar 28, 2019 Seasonal Allergies Seasonal Allergies: Yes Past Medical History Surgeries: Yes (MEDIASTINAL LYMPH NODE ) Hysterectomy, Thyroidectomy Respiratory: Yes (LUNG CA STAGE 4) Pneumonia Cardiac: Yes Deep Vein Thrombosis, Heart Murmur, Hypertension Neurological: Yes TIA Reproductive Disorders: No 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 Sexually Transmitted Disease: No HIV/AIDS: No Genitourinary: Yes UTI-Chronic Gastrointestinal: Yes Gastroesophageal Reflux, Liver Disease/Jaundice Musculoskeletal: No Endocrine: Yes HEENT: Yes Cataract, Macular Degeneration Cancer: Yes Lung Did You Recieve Any Treatments: Yes What Type of Treatment Did You: Radiation, Other Psychosocial: No Integumentary: No Blood Disorders: Yes (DVT'S) Adverse Reaction/Blood Tranf: No Family Medical History FH: breast cancer G8 SISTER Physical Exam Vital Signs Vital Signs - First Documented 08/29/19 08/29/19 07:02 09:21 Temp 36.5 Pulse 78 Resp 16 B/P (MAP) 145/63 (90) Pulse Ox 93 O2 Delivery Room Air Capillary Refill : Less Than 3 Seconds Height, Weight, BMI Height: 5'4.00" Weight: 134lbs. 9.0oz. [id number]; 26.00 BMI Method:Estimated General Appearance: No Apparent Distress, WD/WN Eyes: Bilateral Eye Normal Inspection, Bilateral Eye PERRL, Bilateral Eye EOMI HEENT: Other (very small superficial contusion right forehead) Neck: Non Tender, Supple Respiratory: Lungs Clear, Normal Breath Sounds Cardiovascular: Regular Rate, Rhythm, No Edema Gastrointestinal: Non Tender, Soft Extremity: Normal Capillary Refill Neurologic/Psychiatric: No Motor/Sensory Deficits, Normal Mood/Affect Skin: Normal Color, Warm/Dry Progress/Results/Core Measures Suspected Sepsis Recent Fever Within 48 Hours: No Infection Criteria Present: Suspected New Infection New/Unexplained Altered Menta: Yes Sepsis Screen: No Definite Risk SIRS Temperature: Pulse: Respiratory Rate: Laboratory Tests 08/29/19 07:30: White Blood Count 9.9 Blood Pressure / Mean: Laboratory Tests 08/29/19 07:30: Creatinine 0.71, Platelet Count 115L Results/Orders Lab Results Laboratory Tests Test 08/29/19 07:05 08/29/19 07:30 Range/Units Urine Color YELLOW Urine Clarity CLEAR Urine pH 6.5 5-9 Urine Specific [place] 1.010 L 1.016-1.022 Urine Protein NEGATIVE NEGATIVE Urine Glucose (UA) NEGATIVE NEGATIVE Urine Ketones NEGATIVE NEGATIVE Urine Nitrite NEGATIVE NEGATIVE Urine Bilirubin NEGATIVE NEGATIVE Urine Urobilinogen 0.2 < = 1.0 MG/DL Urine Leukocyte Esterase NEGATIVE NEGATIVE Urine RBC (Auto) 1+ H NEGATIVE Urine RBC 2-5 H /HPF Urine WBC 0-2 /HPF Urine Squamous Epithelial Cells 0-2 /HPF Urine Crystals NONE /LPF Urine Bacteria MODERATE H /HPF Urine Casts NONE /LPF Urine Mucus NEGATIVE /LPF Urine Culture Indicated YES White Blood Count 9.9 4.3-11.0 10^3/uL Red Blood Count 3.25 L 4.35-5.85 10^6/uL Hemoglobin 9.7 L 11.5-16.0 G/DL Hematocrit 29 L 35-52 % Mean Corpuscular Volume 89 80-99 FL Mean Corpuscular Hemoglobin 30 25-34 PG Mean Corpuscular Hemoglobin Concent 33 32-36 G/DL Red Cell Distribution Width 14.4 10.0-14.5 % Platelet Count 115 L 130-400 10^3/uL Mean Platelet Volume 9.0 7.4-10.4 FL Neutrophils (%) (Auto) 79 H 42-75 % Lymphocytes (%) (Auto) 9 L 12-44 % Monocytes (%) (Auto) 9 0-12 % Eosinophils (%) (Auto) 3 0-10 % Basophils (%) (Auto) 0 0-10 % Neutrophils # (Auto) 7.8 1.8-7.8 X 10^3 Lymphocytes # (Auto) 0.8 L 1.0-4.0 X 10^3 Monocytes # (Auto) 0.8 0.0-1.0 X 10^3 Eosinophils # (Auto) 0.3 0.0-0.3 10^3/uL Basophils # (Auto) 0.0 0.0-0.1 10^3/uL Sodium Level 123 *L 135-145 MMOL/L Potassium Level 4.3 3.6-5.0 MMOL/L Chloride Level 88 L 98-107 MMOL/L Carbon Dioxide Level 27 21-32 MMOL/L Anion Gap 8 5-14 MMOL/L Blood Urea Nitrogen 11 7-18 MG/DL Creatinine 0.71 0.60-1.30 MG/DL Estimat Glomerular Filtration Rate > 60 BUN/Creatinine Ratio 15 Glucose Level 89 70-105 MG/DL Calcium Level 9.0 8.5-10.1 MG/DL My Orders Orders - AVELINO VICTOR DO Ct Head Wo (08/29/19 07:17) Basic Metabolic Panel (08/29/19 07:17) Cbc With Automated Diff (08/29/19 07:17) Ua Culture If Indicated (08/29/19 07:17) Urine Culture (08/29/19 07:05) Ondansetron Oral Dissolve Tab (Zofran (08/29/19 07:53) Ed Iv/Invasive Line Start (08/29/19 07:59) Ns Iv 500 Ml (Sodium Chloride 0.9%) (08/29/19 07:59) Ceftriaxone For Iv Use (Rocephin For I (08/29/19 08:15) Medications Given in ED Current Medications Medications Dose Ordered Sig/José Route Start Time Stop Time Status Last Admin Dose Admin Ceftriaxone Sodium 1000 mg/ Sterile Water 10 ml @ 200 mls/hr ONCE ONCE IV 08/29/19 08:15 3/4/20 08:17 DC 08/29/19 08:17 200 MLS/HR Sodium Chloride 500 ml @ 0 mls/hr Q0M ONCE IV 08/29/19 07:59 08/29/19 08:00 DC 08/29/19 08:04 500 MLS/HR Vital Signs/I&O 08/29/19 08/29/19 07:02 09:21 Temp 36.5 36.4 Pulse 78 84 Resp 16 16 B/P (MAP) 145/63 (90) 149/62 Pulse Ox 93 94 O2 Delivery Room Air Capillary Refill : Less Than 3 Seconds Progress Note : Time: 11:28 Progress Note I reviewed labs and imaging with family. We gave her a 500 mL bolus due to her low sodium and likely some mild dehydration. I recommend that she drink plenty of fluids. Her sodium is unchanged from yesterday. Patient also has new findings on and CT head concerning for metastatic disease which I reviewed with patient and family. I recommend that she drinks plenty of fluids. They need to have there labs rechecked in the next 2-3 days for recheck of her sodium and then follow-up with her primary care provider for outpatient MRI and further evaluation of her abnormal CT. Patient is stable. She does have a mild UTI which we will treat with a IV Rocephin here in the ER then outpatient Keflex. Departure Impression Primary Impression: Cystitis Additional Impressions: Hyponatremia Abnormal CT of the head Disposition: 01 HOME, SELF-CARE Condition: Stable Departure-Patient Inst. Referrals: [facility]/ (PCP) Primary Care Physician KASI MYERS APRN (Family) Primary Care Physician Patient Instructions: Hyponatremia (DC), Acute Cystitis (DC) Add. Discharge Instructions: Please follow-up with your primary care provider in 2 days for recheck of her sodium. Have her drink plenty of fluids. Please follow-up with either oncology or your primary care provider for further evaluation of possible metastatic lesions on the head CT. Return to the ER as needed or if symptoms worsen. All discharge instructions reviewed with patient and/or family. Voiced understanding. Scripts Cephalexin (Cephalexin) 500 Mg Tablet 500 MG PO QID, #10 TAB 0 Refills Prov: AVELINO VICTOR DO 08/29/19 AVELINO VICTOR DO Aug 29, 2019 07:16
[2019-08-29 07:27] LABS: BILIRUBIN,URINE NEGATIVE (NEGATIVE); CLARITY,URINE CLEAR; COLOR,URINE YELLOW; GLUCOSE, URINE (UA) NEGATIVE (NEGATIVE); KETONES,URINE NEGATIVE (NEGATIVE); LEUKOCYTE ESTERASE ,URINE NEGATIVE (NEGATIVE); NITRITE,URINE NEGATIVE (NEGATIVE); PH,URINE 6.5 (5-9); PROTEIN,URINE NEGATIVE (NEGATIVE)
[2019-08-29 07:36] LABS: BASOPHILS % (AUTO) 0 % (0-10); EOSINOPHILS # (AUTO) 0.3 10^3/uL (0.0-0.3); EOSINOPHILS % (AUTO) 3 % (0-10); HEMATOCRIT 29 % (35-52); HEMOGLOBIN 9.7 G/DL (11.5-16.0); LYMPHOCYTES # (AUTO) 0.8 X 10^3 (1.0-4.0); LYMPHOCYTES % (AUTO) 9 % (12-44); MEAN CORPUSCULAR HEMOGLOBIN 30 PG (25-34); MEAN CORPUSCULAR HGB CONC 33 G/DL (32-36); MEAN CORPUSCULAR VOLUME 89 FL (80-99); MONOCYTES # (AUTO) 0.8 X 10^3 (0.0-1.0); MONOCYTES % (AUTO) 9 % (0-12); NEUTROPHILS # (AUTO) 7.8 X 10^3 (1.8-7.8); NEUTROPHILS % (AUTO) 79 % (42-75); PLATELET COUNT 115 10^3/uL (130-400); RED CELL DISTRIBUTION WIDTH 14.4 % (10.0-14.5); WHITE BLOOD COUNT 9.9 10^3/uL (4.3-11.0)
[2019-08-29 07:47] LABS: BACTERIA,URINE MODERATE /HPF; SQUAMOUS EPITHELIAL CELL,UR 0-2 /HPF; WBC,URINE 0-2 /HPF
[2019-08-29 07:49] LABS: BUN/CREATININE RATIO 15; CARBON DIOXIDE 27 MMOL/L (21-32); CHLORIDE 88 MMOL/L (98-107); CREATININE SERUM 0.71 MG/DL (0.60-1.30); GFR ESTIMATED > 60; GLUCOSE 89 MG/DL (70-105); POTASSIUM 4.3 MMOL/L (3.6-5.0)
[2019-08-29] MEDS ORDERED: ONDANSETRON 4 MG (ZOFRAN) ORAL DISSOLVE TAB SL STA (07:53)
[2019-08-29 07:58] LABS: SODIUM 123 MMOL/L (135-145)
[2019-08-29] MEDS ORDERED: NS IV 500 ML 500 ML IV ONE (07:59)
--- NOTE | 2019-08-29 08:04 | NUR ---
IN ROOM TALKING TO SON AT THIS TIME.
[2019-08-29] MEDS ORDERED: cefTRIAXone FOR IV USE 1,000 MG in WATER (STERILE) FOR INJECTION 10 ML IV ONE (08:15)
--- NOTE | 2019-08-29 08:20 | Diagnostic Imaging Report ---
PROCEDURE: CT head without contrast. TECHNIQUE: Multiple contiguous axial images were obtained through the brain without the use of intravenous contrast. Auto Exposure Controls were utilized during the CT exam to meet ALARA standards for radiation dose reduction. INDICATION: Urinary tract infection, fall. Study compared with head CT 08/03/2019. FINDINGS: There are new tiny subcentimeter parenchymal areas of faint hyperdensity these include the high left frontal lobe 4.2 mm image 25, right posterior medial frontal lobe 5 to 6 mm image 15 and upper left cerebellar vermis 5.5 cm image 11. These exert no mass effect. These are not appreciable on the recent comparison study. It is unclear if these are the sequelae of metastatic disease or if they are on posttraumatic contusive basis. MRI with and without contrast suggested as further evaluation. These lesions exert no mass effect. There is no hydrocephalus, edema, evidence for elevated pressures, hydrocephalus, shift or herniation. There are faint edematous like changes in the left middle cerebellar peduncle at the site of previous enhancing lesion which may be mild focal vasogenic edema owing to a suspected mass at that site. No subdural or epidural blood. No intraventricular hemorrhage. The basilar cisterns are patent. There is no sulcal effacement. A high left frontal calvarial lytic lesion unchanged. No new bony pathology or fracture. There is no hemo-sinus. IMPRESSION: New tiny subcentimeter cortical foci of hyperintensity developed from the recent study may be small hemorrhagic contusions or the sequelae of metastasis. These exert no mass effect. There is no hydrocephalus. No evidence for elevated intracerebral pressures. Other findings stable from the recent comparison. Results discussed with the emergency room physician. Dictated by: Dictated on workstation # [id number]
[2019-08-29] MEDS ORDERED: CEPH500T PO (09:06)
[2019-08-29 09:21] VITALS: BP 149/62
== END 2019-08-29 09:21 | disposition home or self-care (01) ==
LOC: EDUNIT# 07:01 → ER 07:02
DX: N30.90 Cystitis, unspecified without hematuria (principal); E87.1 Hypo-osmolality and hyponatremia; R93.0 Abnormal findings on diagnostic imaging of skull and head, not elsewhere classified; I10 Essential (primary) hypertension; K21.9 Gastro-esophageal reflux disease without esophagitis; Z86.718 Personal history of other venous thrombosis and embolism; Z86.73 Personal history of transient ischemic attack (TIA), and cerebral infarction without residual deficits; Z79.01 Long term (current) use of anticoagulants; Z88.2 Allergy status to sulfonamides; Z88.8 Allergy status to other drugs, medicaments and biological substances; Z79.82 Long term (current) use of aspirin; Z85.118 Personal history of other malignant neoplasm of bronchus and lung; Z80.3 Family history of malignant neoplasm of breast
CPT/HCPCS: 36415; 70450; 80048; 81000; 85025; 87077; 87088; 87186

== ENCOUNTER 2019-09-01 11:17 | Inpatient (IN) | payer MEDICAID ==
[~2019-09-01] VITALS: Ht 152.4 cm; Wt 70.0 kg
[~2019-09-01 11:17] MED LIST changes: -GUAI-977 PO; -MAG30ORA2 PO; -NF-NACL1GT PO; -NITR100C10 PO; -POLY17PO6 PO; -SOLI10TA7 PO
[2019-09-01] MEDS ORDERED: NS IV 1000 ML 1,000 ML ONE (11:20)
[2019-09-01] MEDS ORDERED: NS IV 1000 ML 1,000 ML IV ONE (11:26)
[2019-09-01 11:38] LABS: BASOPHILS % (AUTO) 0 % (0-10); EOSINOPHILS # (AUTO) 0.4 10^3/uL (0.0-0.3); EOSINOPHILS % (AUTO) 4 % (0-10); HEMATOCRIT 30 % (35-52); HEMOGLOBIN 10.2 G/DL (11.5-16.0); LYMPHOCYTES # (AUTO) 1.1 X 10^3 (1.0-4.0); LYMPHOCYTES % (AUTO) 9 % (12-44); MEAN CORPUSCULAR HEMOGLOBIN 30 PG (25-34); MEAN CORPUSCULAR HGB CONC 34 G/DL (32-36); MEAN CORPUSCULAR VOLUME 89 FL (80-99); MEAN PLATELET VOLUME 9.4 FL (7.4-10.4); MONOCYTES # (AUTO) 1.1 X 10^3 (0.0-1.0); MONOCYTES % (AUTO) 10 % (0-12); NEUTROPHILS # (AUTO) 9.2 X 10^3 (1.8-7.8); NEUTROPHILS % (AUTO) 78 % (42-75); PLATELET COUNT 122 10^3/uL (130-400); RED CELL DISTRIBUTION WIDTH 14.1 % (10.0-14.5); WHITE BLOOD COUNT 11.9 10^3/uL (4.3-11.0)
[2019-09-01 11:57] LABS: ALANINE AMINOTRANSFERASE 33 U/L (0-55); ALKALINE PHOSPHATASE 274 U/L (40-136); BILIRUBIN,TOTAL 0.8 MG/DL (0.1-1.0); BUN/CREATININE RATIO 19; CALCIUM 9.1 MG/DL (8.5-10.1); CARBON DIOXIDE 24 MMOL/L (21-32); CHLORIDE 86 MMOL/L (98-107); CREATININE SERUM 0.64 MG/DL (0.60-1.30); GFR ESTIMATED > 60; GLUCOSE 93 MG/DL (70-105); POTASSIUM 4.4 MMOL/L (3.6-5.0); TOTAL PROTEIN 7.4 GM/DL (6.4-8.2)
--- NOTE | 2019-09-01 12:00 | NUR ---
1200 Lactic Acid drawn et sent to lab
[2019-09-01 12:01] LABS: SODIUM 122 MMOL/L (135-145)
--- NOTE | 2019-09-01 12:10 | Diagnostic Imaging Report ---
Comparison made with prior examination from 12/06/19. FINDINGS: Heart size is normal. Diffuse bilateral airspace disease. There is a right pleural fusion. There is no pneumothorax. [id number] Cath overlies right hemithorax. IMPRESSION: Persistent diffuse bilateral airspace disease and right pleural effusion. Some underlying central pulmonary venous congestion cannot be excluded. Dictated by: Dictated on workstation # [id number]
[2019-09-01 12:33] LABS: BILIRUBIN,URINE NEGATIVE (NEGATIVE); CLARITY,URINE CLEAR; COLOR,URINE YELLOW; GLUCOSE, URINE (UA) NEGATIVE (NEGATIVE); KETONES,URINE NEGATIVE (NEGATIVE); LEUKOCYTE ESTERASE ,URINE NEGATIVE (NEGATIVE); NITRITE,URINE NEGATIVE (NEGATIVE); PROTEIN,URINE NEGATIVE (NEGATIVE)
[2019-09-01 12:45] LABS: BACTERIA,URINE NEGATIVE /HPF; RBC,URINE RARE /HPF
[2019-09-01] MEDS ORDERED: FUROSEMIDE 40 MG/4 ML INJ (LASIX) IV STA ×2 (12:47→13:17)
--- NOTE | 2019-09-01 13:20 | NUR ---
Dr. Mccollum in room with pt at this time.
--- NOTE | 2019-09-01 13:30 | ED General ---
General Chief Complaint: General Problems/Pain Stated Complaint: GENERAL Nursing Triage Note: Pt to room #7 via ED w/c by ED staff with c/o hyponatremia. Prior to arrival [facility] staff reported to this RN na+ level of 120 drawn on this day. Pt denies pain or discomfort. Son, Tenzin Quintana, at side. Nursing Sepsis Screen: No Definite Risk Source of Information: Patient Exam Limitations: No Limitations History of Present Illness Date Seen by Provider: Sep 01, 2019 Time Seen by Provider: 11:17 Initial Comments Here with report of hyponatremia. Apparently had lab drawn this morning that showed sodium of 120 and chloride of 87. Patient is Faroese and does not speak Tajik. Translation by her son. Patient has history of metastatic lung cancer to brain. Has been hospitalized for syndrome of inappropriate antidiuretic hormone and has had problems with hyponatremia. She had recent hospitalization last month for pneumonia and low sodium. This improved with free water restriction and medical management. She is at the senior care. Sodium was noted to be low yesterday and she got 3 g of sodium via tablets and her son has been given her Pedialyte. This apparently did not improve her sodium level. She reportedly is mentating well per the son and she is talking with him when spoken to. She denies any significant pain at this point. Apparently she did slide out of her chair this morning onto her left hip but did not have any significant pain or hitting anything during that episode. Not complaining of pain to her left hip currently. Does have new lesions in the brain from CT scan done on 28 August. No reported vomiting or diarrhea. No dysuria. Denies upper respiratory symptoms. O2 sat in the low to mid 80s on arrival and she normally wears oxygen. This was placed on her and we did get improvement. The mid 80s is lower than her typical as she is really normally high 80s or low 90s on room air. Timing/Duration: 2-3 Days, Getting Worse Severity: Moderate Associated Systoms: No Chest Pain, No Cough, No Fever/Chills, No Headaches, No Nausea/Vomiting, No Shortness of Air; Weakness Allergies and Home Medications Allergies Coded Allergies: carboplatin (Verified Allergy, Severe, 07/10/18) REACTION TO CARBOPLATIN Sulfa (Sulfonamide Antibiotics) (Verified Allergy, Mild, 02/04/18) Home Medications Acetaminophen 500 Mg Tablet, 1,000 MG PO TID, (Reported) Albuterol Sulfate 1 Puff Puff, 2 PUFF INH Q4H PRN for SHORTNESS OF BREATH, (Reported) Albuterol Sulfate 2.5 Mg/0.5 Ml Vial.neb, 2.5 MG INH Q6H PRN for SHORTNESS OF BREATH, (Reported) Apixaban 2.5 Mg Tablet, 2.5 MG PO BID, (Reported) Furosemide 20 Mg Tablet, 20 MG PO MoWeFr, (Reported) Guaifenesin 600 Mg Tab.er.12h, 600 MG PO BID, (Reported) Levothyroxine Sodium 88 Mcg Tablet, 88 MCG PO DAILY, (Reported) Loratadine 10 Mg Tablet, 10 MG PO DAILY, (Reported) Mag Hydrox/Al Hydrox/Simeth 30 Ml Oral.susp, 30 ML PO Q4H PRN for INDIGESTION, (Reported) Nitrofurantoin Monohyd/M-Cryst 100 Mg Capsule, 1 CAP PO BID, (Reported) FILLED 08-31-2019 #10/ 5 DAY SUPPLY Omeprazole 20 Mg Capsule.dr, 20 MG PO BID, (Reported) Polyethylene Glycol 3350 17 Gm Powd.pack, 17 GM PO DAILY, (Reported) Potassium Chloride 10 Meq Tab.er.prt, 10 MEQ PO BID, (Reported) Sodium Chloride 1 Gm Tab, 3 GM PO TID, (Reported) FILLED ON 08-31-2019 #36- HOWEVER THE SCRIPT WAS FOR #90 (PHARMACY DID NOT HAVE IT ALL IN STOCK) THIS WAS FOR A 10 DAY THERAPY Solifenacin Succinate 10 Mg Tablet, 10 MG PO HS, (Reported) Timolol Maleate 5 Ml Drops, 1 DROP OD BID, (Reported) Patient Home Medication List Home Medication List Reviewed: Yes Review of Systems Review of Systems Constitutional: see HPI EENTM: no symptoms reported Respiratory: No cough, No wheezing Cardiovascular: No chest pain, No edema Gastrointestinal: No abdominal pain, No nausea, No vomiting Genitourinary: no symptoms reported Musculoskeletal: no symptoms reported All Other Systems Reviewed Negative Unless Noted: Yes Past Lbobuts-Femney-Papaea Hx Past Med/Social Hx: Reviewed Nursing Past Med/Soc Hx Patient Social History Alcohol Use: Denies Use Recreational Drug Use: No Smoking Status: Never a Smoker 2nd Hand Smoke Exposure: No Recent Foreign Travel: No Contact w/Someone Who Travel: No Recent Infectious Disease Expo: No Recent Hopitalizations: No Immunizations Up To Date Tetanus Booster (TDap): Unknown Date of Pneumonia Vaccine: Apr 27, 2011 Date of Influenza Vaccine: Mar 28, 2019 Seasonal Allergies Seasonal Allergies: Yes Past Medical History Surgeries: Yes (MEDIASTINAL LYMPH NODE ) Hysterectomy, Thyroidectomy Respiratory: Yes (LUNG CA STAGE 4) Pneumonia Cardiac: Yes Deep Vein Thrombosis, Heart Murmur, Hypertension Neurological: Yes TIA Reproductive Disorders: No 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 Sexually Transmitted Disease: No HIV/AIDS: No Genitourinary: Yes UTI-Chronic Gastrointestinal: Yes Gastroesophageal Reflux, Liver Disease/Jaundice Musculoskeletal: No Endocrine: Yes HEENT: Yes Cataract, Macular Degeneration Cancer: Yes Lung Did You Recieve Any Treatments: Yes What Type of Treatment Did You: Radiation, Other Psychosocial: No Integumentary: No Blood Disorders: Yes (DVT'S) Adverse Reaction/Blood Tranf: No Family Medical History Reviewed Nursing Family Hx FH: breast cancer G8 SISTER Physical Exam Vital Signs Vital Signs - First Documented 09/01/19 11:20 Temp 35.9 Pulse 78 Resp 17 B/P (MAP) 153/70 (97) Pulse Ox 97 O2 Delivery Nasal Cannula O2 Flow Rate 2.00 Capillary Refill : Less Than 3 Seconds Height, Weight, BMI Height: 5'4.00" Weight: 134lbs. 9.0oz. 61.209606cb; 27.00 BMI Method:Estimated General Appearance: No Apparent Distress, WD/WN HEENT: PERRL/EOMI, Pharynx Normal Neck: Non Tender, Supple Respiratory: No Respiratory Distress, Crackles (I days later) Cardiovascular: Regular Rate, Rhythm, No Murmur Gastrointestinal: Non Tender, Soft Back: Normal Inspection, No CVA Tenderness, No Vertebral Tenderness Extremity: Normal Range of Motion, Non Tender Neurologic/Psychiatric: Alert, Oriented x3 Skin: Warm/Dry, Pallor Focused Exam Lactate Level 09/01/19 12:00: Lactic Acid Level 1.80 Lactic Acid Level Progress/Results/Core Measures Suspected Sepsis Recent Fever Within 48 Hours: No Infection Criteria Present: None New/Unexplained Altered Menta: No Sepsis Screen: No Definite Risk SIRS Temperature: Pulse: 78 Respiratory Rate: 17 Laboratory Tests 09/02/19 03:08: White Blood Count 11.9H 09/03/19 04:15: White Blood Count 11.2H 09/04/19 06:15: White Blood Count 13.3H Blood Pressure 153 /70 Mean: 97 09/01/19 12:00: Lactic Acid Level 1.80 Laboratory Tests 09/01/19 11:30: Total Bilirubin 0.8 09/02/19 03:08: Creatinine 0.77, Platelet Count 123L 09/03/19 04:15: Total Bilirubin 1.1H, Creatinine 0.79, Platelet Count 126L 09/04/19 06:15: Platelet Count 128L Results/Orders Lab Results Laboratory Tests Test 09/02/19 15:47 09/03/19 04:15 09/04/19 06:15 Range/Units Glucometer 119 H 70-110 MG/DL White Blood Count 11.2 H 13.3 H 4.3-11.0 10^3/uL Red Blood Count 3.34 L 3.38 L 4.35-5.85 10^6/uL Hemoglobin 10.0 L 10.1 L 11.5-16.0 G/DL Hematocrit 30 L 31 L 35-52 % Mean Corpuscular Volume 90 90 80-99 FL Mean Corpuscular Hemoglobin 30 30 25-34 PG Mean Corpuscular Hemoglobin Concent 33 33 32-36 G/DL Red Cell Distribution Width 14.4 14.6 H 10.0-14.5 % Platelet Count 126 L 128 L 130-400 10^3/uL Mean Platelet Volume 9.3 9.4 7.4-10.4 FL Neutrophils (%) (Auto) 78 H 78 H 42-75 % Lymphocytes (%) (Auto) 9 L 7 L 12-44 % Monocytes (%) (Auto) 10 11 0-12 % Eosinophils (%) (Auto) 4 4 0-10 % Basophils (%) (Auto) 0 0 0-10 % Neutrophils # (Auto) 8.7 H 10.4 H 1.8-7.8 X 10^3 Lymphocytes # (Auto) 1.0 0.9 L 1.0-4.0 X 10^3 Monocytes # (Auto) 1.1 H 1.4 H 0.0-1.0 X 10^3 Eosinophils # (Auto) 0.4 H 0.5 H 0.0-0.3 10^3/uL Basophils # (Auto) 0.0 0.0 0.0-0.1 10^3/uL Sodium Level 128 L 135-145 MMOL/L Potassium Level 3.9 3.6-5.0 MMOL/L Chloride Level 88 L 98-107 MMOL/L Carbon Dioxide Level 28 21-32 MMOL/L Anion Gap 12 5-14 MMOL/L Blood Urea Nitrogen 23 H 7-18 MG/DL Creatinine 0.79 0.60-1.30 MG/DL Estimat Glomerular Filtration Rate > 60 BUN/Creatinine Ratio 29 Glucose Level 90 70-105 MG/DL Calcium Level 9.5 8.5-10.1 MG/DL Corrected Calcium 9.6 8.5-10.1 MG/DL Total Bilirubin 1.1 H 0.1-1.0 MG/DL Aspartate Amino Transf (AST/SGOT) 61 H 5-34 U/L Alanine Aminotransferase (ALT/SGPT) 35 0-55 U/L Alkaline Phosphatase 275 H 40-136 U/L Total Protein 7.2 6.4-8.2 GM/DL Albumin 3.9 3.2-4.5 GM/DL Micro Results My Orders Medications Given in ED Vital Signs/I&O 09/03/19 09/03/19 09/03/19 09/03/19 19:00 19:35 20:01 21:50 Temp 36.6 36.6 Pulse 98 92 92 Resp 20 20 B/P (MAP) 128/83 (98) 130/72 (91) Pulse Ox 97 97 O2 Delivery Nasal Cannula Nasal Cannula Nasal Cannula O2 Flow Rate 0.50 1.00 1.00 1.00 09/04/19 09/04/19 09/04/19 09/04/19 00:00 00:03 01:00 03:46 Temp 36.8 Pulse 77 75 Resp 22 B/P (MAP) 149/76 (100) Pulse Ox 97 O2 Delivery Nasal Cannula Nasal Cannula Nasal Cannula O2 Flow Rate 1.00 1.00 1.00 09/04/19 04:00 Temp 36.8 Pulse 77 Resp 18 B/P (MAP) 134/63 (86) Pulse Ox 94 O2 Delivery Nasal Cannula O2 Flow Rate 1.00 Capillary Refill : Less Than 3 Seconds Blood Pressure Mean: 97 Progress Note : Progress Note Seen and evaluated. Patient is complex in that she has multiple syndromes affecting each other. Sodium seems to have been low for some time now but has had improvement and certainly is lower despite treatment currently. IV via port access, labs and UA and chest x-ray ordered. Due to findings on chest x-ray, we will get blood cultures and lactic acid. Normal saline bolus initially ordered at 1 L but this was stopped at 500 mL due to pulmonary edema noted on chest x- ray. We do need to correct the sodium but is will be complicated given her underlying medical condition and ability to take IV fluids. Consideration for hypertonic saline but we will hold on that for now. 1320: I have discussed the case at length with the patient's son. She will require admission. She does appear to have volume overload but BNP is not significantly elevated. I think this may be related to her underlying medical condition. Lasix 80 mg IV given after discussion with Dr. Boo. Patient has been seen by Dr. Mccollum in the emergency department. Bui catheter placed due to patient's weakness. We will free water restrict and get the patient admitted to the cardiac step down. I have consulted Dr. Metz as well. Admit, inpatient status. Family agree with plan. Diagnostic Imaging Diagonstic Imaging: Xray Plain Films/CT/US/NM/MRI: chest Comments [facility]. [place], [place] NAME: CLARITZA KELLY [facility] REC#: [id number] PT STATUS: REG ER : 1945 PHYSICIAN: BE LIRIANO MD ADMIT DATE: 09/01/19/ER Signed Date of Exam:09/01/19 CHEST 1 VIEW, AP/PA ONLY Comparison made with prior examination from 12/06/19. FINDINGS: Heart size is normal. Diffuse bilateral airspace disease. There is a right pleural fusion. There is no pneumothorax. Jrsjec-g-Tuia Cath overlies right hemithorax. IMPRESSION: Persistent diffuse bilateral airspace disease and right pleural effusion. Some underlying central pulmonary venous congestion cannot be excluded. Dictated by: Dictated on workstation # [id number] Dict: 09/01/19 1156 Trans: 09/01/19 1256 [facility] [id number] Interpreted by: DENILSON AMBROSE MD Electronically signed by: DENILSON AMBROSE MD 09/01/19 1256 Reviewed: Reviewed by Me Departure Communication (Admissions) Time/Spoke to Admitting Phy: 13:05 Time/Spoke to Consulting Phy: 13:10 Impression Primary Impression: Hyponatremia syndrome Additional Impressions: Metastatic lung cancer (metastasis from lung to other site) Qualified Codes: C34.90 - Malignant neoplasm of unspecified part of unspecified bronchus or lung Volume overload Qualified Codes: E87.70 - Fluid overload, unspecified Disposition: 09 ADMITTED INPATIENT Condition: Stable Admissions Decision to Admit Reason: Admit from ER (General) Decision to Admit/Date: Sep 01, 2019 Time/Decision to Admit Time: 13:05 Departure-Patient Inst. Referrals: [facility] [place] (PCP) Primary Care Physician KASI MYERS APRN (Family) Primary Care Physician BE LIRIANO MD Sep 01, 2019 13:30
--- NOTE | 2019-09-01 13:40 | NUR ---
Contacted son, Tenzin Quintana, regarding pt update et admission status.
[2019-09-01 14:00] VITALS: BP 121/56
--- NOTE | 2019-09-01 14:06 | History & Physical-Hospitalist ---
History of Present Illness HPI/Chief Complaint CC: CHF with hyponatremia HPI: This is a 74yoWF clinic patient of [facility] known to me since last hospital stay she required [facility] admit 08/08/19 due to hyponatremia and severely debilitated status due to lung cancer with mets. Patient presented today to ER with hyponatremia on labs obtained by PCP and was found to have CHF requiring [facility] and [facility]eev consultation services. Son updated on the plan for admit. Source: family, RN/MD, old records Exam Limitations: clinical condition Date Seen 09/01/19 Time Seen by a Provider: 13:00 Attending Physician Christi Mccollum DO [facility] [place],[facility] Referring Physician Date of Admission Sep 01, 2019 at 13:22 Home Medications & Allergies Home Medications Reviewed patient Home Medication Reconciliation performed by pharmacy medication reconciliations customer account technician and/or nursing. Patients Allergies have been reviewed. Allergies Allergies Coded Allergies carboplatin (Verified Allergy, Severe, 07/10/18) REACTION TO CARBOPLATIN Sulfa (Sulfonamide Antibiotics) (Verified Allergy, Mild, 02/04/18) Past Avhzuuy-Qypsin-Atpblo Hx Past Med/Social Hx: Reviewed Nursing Past Med/Soc Hx, Reviewed and Corrections made Patient Social History Marrital Status: Employed/Student: retired Alcohol Use: Denies Use Recreational Drug Use: No Smoking Status: Never a Smoker 2nd Hand Smoke Exposure: No Recent Foreign Travel: No Contact w/other who traveled: No Recent Hopitalizations: No Recent Infectious Disease Expo: No Immunizations Up To Date Tetanus Booster (TDap): Unknown Date of Pneumonia Vaccine: Apr 27, 2011 Date of Influenza Vaccine: Mar 28, 2019 Seasonal Allergies Seasonal Allergies: Yes Past Medical History Surgeries: Hysterectomy, Thyroidectomy Respiratory: Pneumonia Cardiac: Deep Vein Thrombosis, Heart Murmur, Hypertension Neurological: TIA Reproductive: No Sexually Transmitted Disease: No HIV/AIDS: No Menopausal Genitourinary: UTI-Chronic Gastrointestinal: Gastroesophageal Reflux, Liver Disease/Jaundice HEENT: Cataract, Macular Degeneration Cancer: Lung Did You Recieve Any Treatments: Yes What Type of Treatment Did You: Radiation, Other History of Blood Disorders: Yes (DVT'S) Adverse Reaction to Blood Monzon: No Family History Reviewed Nursing Family Hx FH: breast cancer G8 SISTER Review of Systems Constitutional: see HPI, weakness Psychiatric/Neurological: Weakness Physical Exam Physical Exam Vital Signs Vital Signs - First Documented 09/01/19 11:20 Temp 35.9 Pulse 78 Resp 17 B/P (MAP) 153/70 (97) Pulse Ox 97 O2 Delivery Nasal Cannula O2 Flow Rate 2.00 Capillary Refill : Less Than 3 Seconds Height, Weight, BMI Height: 5'4.00" Weight: 134lbs. 9.0oz. 61.401548pi; 27.00 BMI Method:Estimated General Appearance: No Apparent Distress, Chronically ill Respiratory: Chest Non Tender, Lungs Clear, Normal Breath Sounds, No Accessory Muscle Use, No Respiratory Distress Cardiovascular: Regular Rate, Rhythm, No Edema, No Gallop, No JVD, No Murmur, Normal Peripheral Pulses Neurologic/Psychiatric: Alert, Disoriented Skin: Normal Color, Warm/Dry Results Results/Procedures Labs Laboratory Tests 09/01/19 11:30 Patient resulted labs reviewed. Assessment/Plan Admission Diagnosis Assessment: CHF new dx Altered mental status Severe hyponatremia of 122 on admission acute on chronic Adenocarcinoma lung cancer with widespread metastasis Mass on brain on CT scan Plan: Oncology consultation Fluid restrict IV Lasix Seizure precautions Admission Status: Inpatient Order (span 2 midnights) Reason for Inpatient Admission: severe hyponatremia Diagnosis/Problems Diagnosis/Problems (1) CHF (congestive heart failure) (2) Lung cancer (3) Hypertension (4) Hyponatremia syndrome Status: Acute (5) Metastatic lung cancer (metastasis from lung to other site) Status: Acute Qualifiers: Laterality: unspecified laterality Qualified Codes: C34.90 - Malignant neoplasm of unspecified part of unspecified bronchus or lung (6) Volume overload Status: Acute Qualifiers: Hypervolemia type: unspecified Qualified Codes: E87.70 - Fluid overload, unspecified (7) Hypokalemia Status: Acute (8) Hypothyroidism Status: Chronic (9) DVT prophylaxis Status: Acute (10) Altered mental state Status: Resolved Resolution Date/Time: 02/05/18 @ 20:33 (11) Adenocarcinoma, lung Status: Chronic CHRISTI MCCOLLUM DO Sep 01, 2019 14:05
[2019-09-01 14:22] VITALS: BP 121/56
[2019-09-01] MEDS ORDERED: HYDROcodone/APAP 5 MG/325 MG (LORTAB) TAB PO PRN (14:30)
[2019-09-01] MEDS ORDERED: MELATONIN 3 MG TABLET PO PRN (14:30)
[2019-09-01] MEDS ORDERED: DOCUSATE SODIUM 100 MG (COLACE) CAP PO PRN (14:30)
[2019-09-01] MEDS ORDERED: ENOXAPARIN 40 MG/0.4 ML (LOVENOX) SYR SC SCH (14:30)
[2019-09-01] MEDS ORDERED: diphenhydrAMINE 25 MG TAB (BENADRYL) PO PRN (14:30)
[2019-09-01] MEDS ORDERED: LOPERAMIDE 2 MG (IMODIUM) TABLET PO PRN (14:30)
[2019-09-01] MEDS ORDERED: ONDANSETRON 4 MG/2 ML (SDV) Z0FRAN IVP PRN (14:30)
--- NOTE | 2019-09-01 14:49 | Consultation-Cardiology ---
HPI-Cardiology Cardiology Consultation: Date of Consultation 09/01/19 Time Seen by a Provider: 14:20 Date of Admission Attending Physician Christi Parikh DO Admitting Physician [place] Consulting Physician PUSHPA LORA MD, MA, FACP, FACC, [facility], CCDS Primary yarn packer: Dr Em HPI: Chief Complaint: Reason for Cardiology consultation: Suspected CHF HPI 74 yo woman admitted by Dr Parikh for eval and treatment of hyponatremia. We have been asked to see her because of suspicion of CHF on CXR. The patient does not speak Kazakh and also appears to somnolent. Dr Lam was the ER physician who spoke with patient's son and obtained history from him. I spoke with Dr Lam and patient's son on the phone The pt has not been reporting cp or palp or syncope. Has generally been weak and has exertional shortness of breath. Has intermittent leg swelling. Has not had recent fever/chills Review of Systems-Cardiology Review of Systems Constitutional: other (A review of systems cannot be obtained from the patient due to reasons noted under HPI. To the extent a ROS could be obtained from other sources is noted in HPI) All Other Systems Reviewed Negative Unless Noted: Yes [id number] Hx Patient Social History Alcohol Use: Denies Use Recreational Drug Use: No Smoking Status: Never a Smoker 2nd Hand Smoke Exposure: No Recent Foreign Travel: No Recent Infectious Disease Expo: No Hospitalization with Isolation: Denies Immunizations Up To Date Tetanus Booster (TDap): Unknown Date of Pneumonia Vaccine: Apr 27, 2011 Date of Influenza Vaccine: Mar 28, 2019 Past Medical History PMH As described under Assessment. Family Medical History Family Medical History: Documented family h/o mother having CAD and HTN. Family History: FH: breast cancer G8 SISTER Allergies and Home Medications Allergies Coded Allergies: carboplatin (Verified Allergy, Severe, 07/10/18) REACTION TO CARBOPLATIN Sulfa (Sulfonamide Antibiotics) (Verified Allergy, Mild, 02/04/18) Home Medications Acetaminophen 500 Mg Tablet, 1,000 MG PO TID, (Reported) Albuterol Sulfate 1 Puff Puff, 2 PUFF INH Q4H PRN for SHORTNESS OF BREATH, (Reported) Albuterol Sulfate 2.5 Mg/0.5 Ml Vial.neb, 2.5 MG INH Q6H PRN for SHORTNESS OF BREATH, (Reported) Apixaban 5 Mg Tablet, 5 MG PO BID Prescribed by: CHRISTI PARIKH on 08/08/19 1128 Aspirin 325 Mg Tablet, 325 MG PO DAILY Prescribed by: CHRISTI PARIKH on 08/08/19 1128 Cefdinir 300 Mg Capsule, 300 MG PO BID Prescribed by: CHRISTI PARIKH on 08/08/19 1336 Cephalexin 500 Mg Tablet, 500 MG PO QID Prescribed by: AVELINO VICTOR on 08/29/19 0906 Furosemide 20 Mg Tablet, 20 MG PO MoWeFr, (Reported) Guaifenesin 400 Mg Tablet, 400 MG PO BID, (Reported) Levothyroxine Sodium 88 Mcg Tablet, 88 MCG PO DAILY, (Reported) Lisinopril 5 Mg Tablet, 5 MG PO HS, (Reported) Loratadine 10 Mg Tablet, 10 MG PO DAILY, (Reported) Omeprazole 20 Mg Capsule.dr, 20 MG PO DAILY, (Reported) Potassium Chloride 10 Meq Tab.er.prt, 10 MEQ PO BID, (Reported) Timolol Maleate 5 Ml Drops, 1 DROP OD BID, (Reported) Patient Home Medication List Home Medication List Reviewed: Yes Physical Exam-Cardiology Physical Exam Vital Signs/I&O 09/01/19 09/01/19 09/01/19 09/01/19 11:20 14:05 14:22 14:29 Temp 35.9 36.4 Pulse 78 72 70 71 Resp 17 16 B/P (MAP) 153/70 (97) 132/68 (97) 121/56 (77) Pulse Ox 97 99 O2 Delivery Nasal Cannula Nasal Cannula Nasal Cannula O2 Flow Rate 2.00 1.50 2.00 Capillary Refill : Less Than 3 Seconds Constitutional: No AAO x 3 (orientation could not be determined because of difficulty with direct communication and pt's somnolent status); well-developed, well-nourished HEENT: EOMI; No xanthelasmas are seen Neck: carotid pulses are 2 + bilaterally, with good upstrokes Respiratory: No accessory muscle use; other (fair air entry, diminished at the bases on both sides) Cardiovascular: regular rate-rhythm, S1 and S2, systolic murmur (soft TEAGAN at card base) Gastrointestinal: No tender; soft; No guarding, No rebound; audible bowel sounds Extremities: No clubbing, No cyanosis, No significant edema Neurologic/Psychiatric: oriented x 3 (orientation could not be determined because of difficulty with direct communication and pt's somnolent status) Data Review Labs Laboratory Tests 09/01/19 11:30: White Blood Count 11.9H, Red Blood Count 3.40L, Hemoglobin 10.2L, Hematocrit 30L , Mean Corpuscular Volume 89, Mean Corpuscular Hemoglobin 30, Mean Corpuscular Hemoglobin Concent 34, Red Cell Distribution Width 14.1, Platelet Count 122L, Mean Platelet Volume 9.4, Neutrophils (%) (Auto) 78H, Lymphocytes (%) (Auto) 9L, Monocytes (%) (Auto) 10, Eosinophils (%) (Auto) 4, Basophils (%) (Auto) 0, Neutrophils # (Auto) 9.2H, Lymphocytes # (Auto) 1.1, Monocytes # (Auto) 1.1H, Eosinophils # (Auto) 0.4H, Basophils # (Auto) 0.0, Sodium Level 122*L, Potassium Level 4.4, Chloride Level 86L, Carbon Dioxide Level 24, Anion Gap 12, Blood Urea Nitrogen 12, Creatinine 0.64, Estimat Glomerular Filtration Rate > 60, BUN/Creatinine Ratio 19, Glucose Level 93, Calcium Level 9.1, Corrected Calcium 9.1, Total Bilirubin 0.8, Aspartate Amino Transf (AST/SGOT) 62H, Alanine Aminotransferase (ALT/SGPT) 33, Alkaline Phosphatase 274H, C-Reactive Protein High Sensitivity 0.79H, B-Type Natriuretic Peptide 181.1H, Total Protein 7.4, Albumin 4.0 09/01/19 12:00: Lactic Acid Level 1.80 09/01/19 12:24: Urine Color YELLOW, Urine Clarity CLEAR, Urine pH 7.0, Urine Specific Sloan 1.015L, Urine Protein NEGATIVE, Urine Glucose (UA) NEGATIVE, Urine Ketones NEGATIVE, Urine Nitrite NEGATIVE, Urine Bilirubin NEGATIVE, Urine Urobilinogen 0.2, Urine Leukocyte Esterase NEGATIVE, Urine RBC (Auto) TRACE-I, Urine RBC RARE, Urine WBC NONE, Urine Squamous Epithelial Cells NONE, Urine Crystals NONE, Urine Bacteria NEGATIVE, Urine Casts NONE, Urine Mucus NEGATIVE, Urine Culture Indicated NO Microbiology 09/01/19 Influenza Types A,B Antigen (DEMI) - Final, Complete Laboratory Tests 09/01/19 11:30 A/P-Cardiology Assessment/Admission Diagnosis Hyponatremia, likely due to SIADH due to stage 4 adenoCA of the lung: being managed by Dr Parikh Questionable acute diastolic CHF. Echo of 08/03/19: LVEF 60-65 percent, mod TR, mild AI, RVSP 60 mmHg Severe pulm hypertension due to adenoCA of lung and h/o pulm embolism in Jul 2019 CTA of the chest from 07-29-2019 showed - Small burden of pulmonary emboli to the subsegmental branches of the right lung. No evidence of right heart strain or pulmonary infarct. Findings suggestive of disease progression with increase in size and number of lung nodules and increase in size of the metastatic lesions throughout the liver. Coronary artery disease, status post cardiac catheterization on October 16, [address] Em which showed mild disease nonobstructive disease with normal LV function, severe pulmonary hypertension Metastatic adenocarcinoma of the lung, stage 4, followed and managed by Dr. Wick History of DVT in 1975 History of Graves' disease, followed and managed by primary care physician Surgical history: varicose vein stripping 1976, thyroidectomy 1980; hysterectomy 1990; cataract surgery 2004 Discussion and Recomendations * Hyponatremia is likely due to SIADH and management is with the Medical svce ( Dr Parikh) * Seems reasonable to give a trial of furosemide, given suspicion of mild diastolic CHF (questionable CXR and mild BNP elevation) * Continue apixaban to prevent DVT and pulm emboli. Has had recent pulm emboli. Apparently, his oncologist and pcp have decided on only the lower dose apixaban (probably because of concern of inducing pulmonary h'janeth) * Monitor labs * support engineer prognosis appears poor PUSHPA LORA MD FACP FAC CCDS Sep 01, 2019 14:49
[2019-09-01 16:00] VITALS: BP 132/60
[2019-09-01 20:00] VITALS: BP 137/61
[2019-09-01] MEDS: SENNA W/DOCUSATE (SENOKOT S) TABLET PO SCH (20:40)
[2019-09-01] MEDS ORDERED: APIXABAN 2.5 MG (ELIQUIS) TABLET PO SCH (21:00)
[2019-09-01] MEDS: ACETAMINOPHEN 500 MG TAB (TYLENOL) PO PRN (21:21)
[2019-09-01] MEDS ORDERED: polyethylene glycoL POWDER 17 GM (MIRALAX) PACK PO PRN (21:30)
--- NOTE | 2019-09-01 21:58 | NUR ---
THIS RN CONTACTED DR. PARIKH TO PER PT'S REQUEST FOR MIRALAX. NEW ORDERS OBTAINED, SEE ORDER HX.
[2019-09-02] VITALS (7 sets, daily range): BP systolic 120–145; BP diastolic 54–99
[2019-09-02 03:49] LABS: BASOPHILS % (AUTO) 0 % (0-10); EOSINOPHILS # (AUTO) 0.3 10^3/uL (0.0-0.3); EOSINOPHILS % (AUTO) 2 % (0-10); HEMATOCRIT 30 % (35-52); HEMOGLOBIN 10.3 G/DL (11.5-16.0); LYMPHOCYTES # (AUTO) 1.1 X 10^3 (1.0-4.0); LYMPHOCYTES % (AUTO) 9 % (12-44); MEAN CORPUSCULAR HGB CONC 34 G/DL (32-36); MEAN CORPUSCULAR VOLUME 89 FL (80-99); MEAN PLATELET VOLUME 9.4 FL (7.4-10.4); MONOCYTES % (AUTO) 8 % (0-12); NEUTROPHILS # (AUTO) 9.6 X 10^3 (1.8-7.8); NEUTROPHILS % (AUTO) 81 % (42-75); PLATELET COUNT 123 10^3/uL (130-400); RED CELL DISTRIBUTION WIDTH 14.5 % (10.0-14.5); WHITE BLOOD COUNT 11.9 10^3/uL (4.3-11.0)
[2019-09-02 03:57] LABS: MEAN CORPUSCULAR HEMOGLOBIN 30 PG (25-34)
[2019-09-02 04:12] LABS: BUN/CREATININE RATIO 21; CALCIUM 9.2 MG/DL (8.5-10.1); CARBON DIOXIDE 25 MMOL/L (21-32); CHLORIDE 87 MMOL/L (98-107); CREATININE SERUM 0.77 MG/DL (0.60-1.30); GFR ESTIMATED > 60; GLUCOSE 98 MG/DL (70-105); PHOSPHORUS 3.9 MG/DL (2.3-4.7)
[2019-09-02 04:17] LABS: SODIUM 125 MMOL/L (135-145)
[2019-09-02] MEDS ORDERED: ASPIRIN 81 MG CHEW (CHILDREN'S ASA) PO ONE (04:30)
--- NOTE | 2019-09-02 04:51 | NUR ---
TIMELINE NOTE BELOW: 09/02/2019 AT 0350: PT C/O CP. PT GRIMACING AND MOANING IN PAIN. 09/02/2019 AT 0351: EKG OBTAINED 09/02/2019 AT 0359: THIS RN CONTACTED DR. LORA VIA [employer]. 09/02/2019 AT 0400: DR. LORA CALLED THIS RN. THIS RN INFORMED DR. LORA THAT PT C/O CP NON-RADIATING, EKG RESULTS, VS. DR. LORA REQUESTED RESULTS OF PREVIOUS EKG. DR. LORA STATED HE WOULD CALL THIS RN BACK. 09/02/2019 AT 0422: DR. LORA CALLED BACK REQUESTING RESULTS OF PREVIOUS EKG. THIS RN INFORMED HIM OF PREVIOUS RESULTS. NEW ORDERS OBTAINED AT THIS TIME, SEE ORDER HX. PREVIOUS EKG RESULTS PRINTED AND PLACED IN PT CHART PER DR. LORA'S ORDER.
[2019-09-02] MEDS: FUROSEMIDE 40 MG/4 ML INJ (LASIX) IV SCH (05:59)
[2019-09-02] MEDS ORDERED: POTASSIUM CL 10MEQ/50ML IVPB 50 ML IV SCH (06:00)
[2019-09-02] MEDS ORDERED: MAGNESIUM 1 GM/100 ML IVPB 100 ML IV SCH (06:00)
[2019-09-02] MEDS ORDERED: KCL 20 MEQ TAB (K-DUR) PO SCH (06:00)
--- NOTE | 2019-09-02 06:31 | Pulmonary Consultation ---
History of Present Illness History of Present Illness Date Seen by Provider: Sep 02, 2019 Time Seen by Provider: 06:26 Date of Admission Allergies and Home Medications Allergies Coded Allergies: carboplatin (Verified Allergy, Severe, 07/10/18) REACTION TO CARBOPLATIN Sulfa (Sulfonamide Antibiotics) (Verified Allergy, Mild, 02/04/18) Home Medications Acetaminophen 500 Mg Tablet, 1,000 MG PO TID, (Reported) Albuterol Sulfate 1 Puff Puff, 2 PUFF INH Q4H PRN for SHORTNESS OF BREATH, (Reported) Albuterol Sulfate 2.5 Mg/0.5 Ml Vial.neb, 2.5 MG INH Q6H PRN for SHORTNESS OF BREATH, (Reported) Apixaban 5 Mg Tablet, 5 MG PO BID Prescribed by: MINA PARIKH on 08/08/19 112 Aspirin 325 Mg Tablet, 325 MG PO DAILY Prescribed by: MINA PARIKH on 08/08/19 1128 Cefdinir 300 Mg Capsule, 300 MG PO BID Prescribed by: MINA PARIKH on 08/08/19 1336 Cephalexin 500 Mg Tablet, 500 MG PO QID Prescribed by: AVELNIO VICTOR on 08/29/19 0906 Furosemide 20 Mg Tablet, 20 MG PO MoWeFr, (Reported) Guaifenesin 400 Mg Tablet, 400 MG PO BID, (Reported) Levothyroxine Sodium 88 Mcg Tablet, 88 MCG PO DAILY, (Reported) Lisinopril 5 Mg Tablet, 5 MG PO HS, (Reported) Loratadine 10 Mg Tablet, 10 MG PO DAILY, (Reported) Omeprazole 20 Mg Capsule.dr, 20 MG PO DAILY, (Reported) Potassium Chloride 10 Meq Tab.er.prt, 10 MEQ PO BID, (Reported) Timolol Maleate 5 Ml Drops, 1 DROP OD BID, (Reported) Past Zygiehg-[id number]-Ymcqhw Hx Past Med/Social Hx: Reviewed Nursing Past Med/Soc Hx, Reviewed and Corrections made Patient Social History Alcohol Use: Denies Use Recreational Drug Use: No Smoking Status: Never a Smoker 2nd Hand Smoke Exposure: No Recent Foreign Travel: No Contact w/Someone Who Travel: No Recent Infectious Disease Expo: No Recent Hopitalizations: No Immunizations Up To Date Tetanus Booster (TDap): Unknown Date of Pneumonia Vaccine: Apr 27, 2011 Date of Influenza Vaccine: Mar 28, 2019 Seasonal Allergies Seasonal Allergies: Yes Past Medical History Surgeries: Yes (MEDIASTINAL LYMPH NODE ) Hysterectomy, Thyroidectomy Respiratory: Yes (LUNG CA STAGE 4) Pneumonia Cardiac: Yes Deep Vein Thrombosis, Heart Murmur, Hypertension Neurological: Yes TIA Reproductive Disorders: No 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 9.0oz. 61.946236ux; 27.34 BMI Method:Estimated Exam Exam Vital Signs Date Time Temp Pulse Resp B/P (MAP) Pulse Ox O2 Delivery O2 Flow Rate FiO2 09/02/19 04:36 36.2 09/02/19 04:21 Nasal Cannula 1.50 09/02/19 04:20 87 18 144/65 (91) 100 Nasal Cannula 1.50 09/02/19 00:48 73 09/02/19 00:38 36.3 76 16 145/61 (89) 100 Nasal Cannula 1.50 09/02/19 00:01 Nasal Cannula 1.50 09/01/19 22:00 Nasal Cannula 1.50 09/01/19 21:30 Nasal Cannula 1.50 09/01/19 20:36 36.1 98 Nasal Cannula 1.50 09/01/19 20:15 Nasal Cannula 1.50 09/01/19 20:00 137/61 (86) 09/01/19 18:59 82 09/01/19 16:00 73 132/60 (84) Nasal Cannula 2.00 09/01/19 16:00 97 Nasal Cannula 2.00 09/01/19 14:29 71 09/01/19 14:22 70 121/56 (77) Nasal Cannula 2.00 09/01/19 14:05 36.4 72 16 132/68 (97) 99 Nasal Cannula 1.50 09/01/19 14:00 Nasal Cannula 2.00 3/7/20 14:00 36.2 74 16 121/56 (77) Nasal Cannula 2.00 09/01/19 11:20 35.9 78 17 153/70 (97) 97 Nasal Cannula 2.00 I & O 09/02/19 07:00 Intake Total 300 ml Output Total 2250 ml Balance -1950 ml Height & Weight Height: 5'4.00" Weight: 134lbs. 9.0oz. 61.236299qi; 27.34 BMI Method:Estimated General Appearance: No Apparent Distress, Chronically ill HEENT: PERRL/EOMI, Pharynx Normal Neck: Non Tender, Supple Respiratory: Chest Non Tender, Lungs Clear, Normal Breath Sounds, No Accessory Muscle Use, No Respiratory Distress Cardiovascular: Regular Rate, Rhythm, No Edema, No Gallop, No JVD, No Murmur, Normal Peripheral Pulses Capillary Refill: Less Than 3 Seconds Extremity: Normal Range of Motion, Non Tender Neurologic/Psychiatric: Alert, Disoriented Skin: Normal Color, Warm/Dry Results Lab Laboratory Tests 09/01/19 11:30 09/02/19 03:08 Assessment/Plan Assessment/Plan Pulmonary edema -Continue Lasix -Monitor -She is requiring only 1 liter of oxygen Hyponatremia with SIADH Acute CP with mild elevation in troponin -Cardiology following Metastatic adenocarcinoma of the lung, stage 4 Diastolic CHF EF 60-65% with RSVP 60 HX of small PE 08/16 -Hold Eliquis secondary to CT of head for now Brain lesion - CT head -- IMPRESSION: New tiny subcentimeter cortical foci of hyperintensity developed from the recent study may be small hemorrhagic contusions or the sequelae of metastasis. These exert no mass effect. There is no hydrocephalus. No evidence for elevated intracerebral pressures. Other findings stable from the recent comparison. Results discussed with the emergency room physician. Over all prognosis is poor. KAYLIE HAMPTON DO Sep 02, 2019 06:31
[2019-09-02] MEDS: ALPRAZolam 0.25 MG (XANAX) TAB PO PRN (08:44)
[2019-09-02] MEDS: SENNA W/DOCUSATE (SENOKOT S) TABLET PO SCH ×2 (08:44→21:00)
--- NOTE | 2019-09-02 09:48 | Progress Note - Hospitalist ---
Subjective HPI/CC On Admission Date Seen by Provider: Sep 02, 2019 Time Seen by Provider: 09:50 CC: CHF with hyponatremia HPI: This is a 74yoWF clinic patient of [facility] known to me since last hospital stay she required [facility] admit 08/08/19 due to hyponatremia and severely debilitated status due to lung cancer with mets. Patient presented today to ER with hyponatremia on labs obtained by PCP and was found to have CHF requiring [facility] consultation services. Son updated on the plan for admit. Subjective/Events-last exam Patient doing better Moving to 4th floor Sodium level 125 now Fluid restriction maintained No pain is reported Review of Systems General: Fatigue Neurological: Weakness, Numbness, Incoordination Focused Exam Lactate Level 09/01/19 12:00: Lactic Acid Level 1.80 Objective Exam Vital Signs Vital Signs Date Time Temp Pulse Resp B/P (MAP) Pulse Ox O2 Delivery O2 Flow Rate FiO2 09/02/19 13:43 70 09/02/19 12:00 Nasal Cannula 1.50 09/02/19 11:50 35.9 24 137/99 (112) 96 Capillary Refill : Less Than 3 Seconds General Appearance: No Apparent Distress, WD/WN, Chronically ill Respiratory: Chest Non Tender, Lungs Clear, Normal Breath Sounds, No Accessory Muscle Use, No Respiratory Distress Cardiovascular: Regular Rate, Rhythm, No Edema, No Gallop, No JVD, No Murmur, Normal Peripheral Pulses Neurologic/Psychiatric: Alert, Oriented x3, No Motor/Sensory Deficits, Normal Mood/Affect Results/Procedures Lab Laboratory Tests 09/02/19 03:08 Patient resulted labs reviewed. Assessment/Plan Assessment and Plan Assess & Plan/Chief Complaint Assessment: CHF new dx Altered mental status Severe hyponatremia of 122 on admission acute on chronic Adenocarcinoma lung cancer with widespread metastasis Mass on brain on CT scan Plan: Oncology consultation Fluid restrict IV Lasix Seizure precautions Move to 4th floor Diagnosis/Problems Diagnosis/Problems (1) CHF (congestive heart failure) (2) Lung cancer (3) Hypertension (4) Hyponatremia syndrome Status: Acute (5) Metastatic lung cancer (metastasis from lung to other site) Status: Acute Qualifiers: Laterality: unspecified laterality Qualified Codes: C34.90 - Malignant neoplasm of unspecified part of unspecified bronchus or lung (6) Volume overload Status: Acute Qualifiers: Hypervolemia type: unspecified Qualified Codes: E87.70 - Fluid overload, unspecified (7) Hypokalemia Status: Acute (8) Hypothyroidism Status: Chronic (9) DVT prophylaxis Status: Acute (10) Altered mental state Status: Resolved Resolution Date/Time: 02/05/18 @ 20:33 (11) Adenocarcinoma, lung Status: Chronic Clinical Quality Measures DVT/VTE Risk/Contraindication: Risk Factor Score Per Nursin RFS Level Per Nursing on Admit: 4+=Very High MINA PARIKH DO Sep 02, 2019 09:48
--- NOTE | 2019-09-02 10:51 | Diagnostic Imaging Report ---
EXAMINATION: Chest radiograph, portable AP view. DATE: 09/02/2019 4:31 AM hours. INDICATION: 74-year-old female, dyspnea. COMPARISON: September 01, 2019. FINDINGS: There is a right-sided port catheter with tip overlying the lower SVC. Stable overall appearance of the cardiomediastinal silhouette. There is no identified pneumothorax. There is multifocal lung consolidation bilaterally which is largely unchanged since comparison exam. IMPRESSION: 1. Multifocal lung consolidation bilaterally which is unchanged since comparison exam. Dictated by: Dictated on workstation # [id number]
--- NOTE | 2019-09-02 14:38 | Progress Note - Cardiology ---
Cardiology SOAP Progress Note Subjective: Unable to communicate with patient: moans and appears to essentially unresponsive Pointed towards chest earlier today during an episode of increased pain/discomfort. Apparently, that subsided shortly afterwards Objective: I&O/Vital Signs 09/02/19 09/02/19 09/02/19 09/02/19 04:20 04:21 04:36 07:06 Temp 36.2 Pulse 87 66 Resp 18 B/P (MAP) 144/65 (91) Pulse Ox 100 O2 Delivery Nasal Cannula Nasal Cannula O2 Flow Rate 1.50 1.50 09/02/19 09/02/19 09/02/19 09/02/19 07:45 08:00 08:00 09:00 Temp 36.5 Pulse 76 Resp 16 B/P (MAP) 138/59 (85) Pulse Ox 95 O2 Delivery Nasal Cannula Nasal Cannula Nasal Cannula O2 Flow Rate 1.50 1.50 1.50 09/02/19 09/02/19 09/02/19 11:50 12:00 13:43 Temp 35.9 Pulse 69 70 Resp 24 B/P (MAP) 137/99 (112) Pulse Ox 96 O2 Delivery Nasal Cannula Nasal Cannula O2 Flow Rate 2.00 1.50 09/02/19 00:00 Intake Total 200 ml Output Total 2050 ml Balance -1850 ml Weight (Pounds): 134 Weight (Ounces): 9.0 Weight (Calculated Kilograms): 61.075919 Constitutional: No AAO x 3 (orientation could not be determined because of difficulty with direct communication and pt's somnolent status); well-developed, well-nourished Respiratory: No accessory muscle use; other (fair air entry, diminished at the bases on both sides) Cardiovascular: regular rate-rhythm, S1 and S2, systolic murmur (soft TEAGAN at c gerald base) Gastrointestional: No tender; soft; No guarding, No rebound; audible bowel sounds Extremities: No clubbing, No cyanosis, No significant edema Neurologic/Psychiatric: oriented x 3 (orientation could not be determined because of difficulty with direct communication and pt's somnolent status) Results/Procedures: Labs Laboratory Tests 09/02/19 03:08: White Blood Count 11.9H, Red Blood Count 3.38L, Hemoglobin 10.3L, Hematocrit 30L , Mean Corpuscular Volume 89, Mean Corpuscular Hemoglobin 30, Mean Corpuscular Hemoglobin Concent 34, Red Cell Distribution Width 14.5, Platelet Count 123L, Mean Platelet Volume 9.4, Neutrophils (%) (Auto) 81H, Lymphocytes (%) (Auto) 9L, Monocytes (%) (Auto) 8, Eosinophils (%) (Auto) 2, Basophils (%) (Auto) 0, Neutrophils # (Auto) 9.6H, Lymphocytes # (Auto) 1.1, Monocytes # (Auto) 1.0, Eosinophils # (Auto) 0.3, Basophils # (Auto) 0.0, Sodium Level 125*L, Potassium Level 4.0, Chloride Level 87L, Carbon Dioxide Level 25, Anion Gap 13, Blood Urea Nitrogen 16, Creatinine 0.77, Estimat Glomerular Filtration Rate > 60, BUN/Creatinine Ratio 21, Glucose Level 98, Calcium Level 9.2, Phosphorus Level 3.9, Magnesium Level 2.0, Troponin I 0.030H, Procalcitonin 0.11H Microbiology 09/01/19 Influenza Types A,B Antigen (DEMI) - Final, Complete A/P: Assessment: Chest pain on the morning of 09/02/19 w/o any ischemic changes on ECG. Troponin 0.03, likely related to non-cardiogenic pulm edema Hyponatremia, likely due to SIADH due to stage 4 adenoCA of the lung: being managed by Dr Mccollum Questionable acute diastolic CHF. Echo of 08/03/19: LVEF 60-65 percent, mod TR, mild AI, RVSP 60 mmHg Severe pulm hypertension due to adenoCA of lung and h/o pulm embolism in Jul 2019 CTA of the chest from 07-29-2019 showed - Small burden of pulmonary emboli to the subsegmental branches of the right lung. No evidence of right heart strain or pulmonary infarct. Findings suggestive of disease progression with increase in size and number of lung nodules and increase in size of the metastatic lesions throughout the liver. CT Head of 08/29/19: New tiny subcentimeter cortical foci of hyperintensity developed from the recent study may be small hemorrhagic contusions or the sequelae of metastasis Coronary artery disease, status post cardiac catheterization on October 16, [address] Em which showed mild disease nonobstructive disease with normal LV function, severe pulmonary hypertension Metastatic adenocarcinoma of the lung, stage 4, followed and managed by Dr. Wick History of DVT in 1975 History of Graves' disease, followed and managed by primary care physician Surgical history: varicose vein stripping 1976, thyroidectomy 1980; hysterectomy 1990; cataract surgery 2004 Plan: * Given new lesions on CT head in which tiny h'hagic spots could not be excluded, it appears reasonable to stop Eliquis and ASA. In case she has a clear case of NM, management would be conservative and empiric, given her multiple comorbidities, our inability to use antiplatelet agents, and her DNR/DNI status. I discussed this with patient's son on the phone and explained the issues to him. He concurs * Hyponatremia is likely due to SIADH and management is with the Medical svce (Dr Mccollum) * Seems reasonable to give furosemide for pulm edema that appears to mostly noncardiogenic * Monitor labs * intermediate accountant prognosis appears poor PUSHPA LORA MD FACP [facility] Sep 02, 2019 14:38
--- NOTE | 2019-09-02 16:40 | NUR ---
Patient transferred to ROOM 409 per BED accompanied by ICU staff. Patient and family notified and understand transfer. Personal belongings with patient. Report given to THIS RN BY FURNITURE ARRANGER SHEFALI.
[2019-09-03] VITALS (7 sets, daily range): BP systolic 114–132; BP diastolic 56–83
[2019-09-03] MEDS: ALPRAZolam 0.25 MG (XANAX) TAB PO PRN ×2 (00:40→22:30)
[2019-09-03] MEDS: fentaNYL INJECTION 100 MCG/2 ML AMP IVP PRN (00:48)
[2019-09-03 04:36] LABS: BASOPHILS % (AUTO) 0 % (0-10); EOSINOPHILS # (AUTO) 0.4 10^3/uL (0.0-0.3); EOSINOPHILS % (AUTO) 4 % (0-10); HEMATOCRIT 30 % (35-52); LYMPHOCYTES % (AUTO) 9 % (12-44); MEAN CORPUSCULAR HEMOGLOBIN 30 PG (25-34); MEAN CORPUSCULAR HGB CONC 33 G/DL (32-36); MEAN CORPUSCULAR VOLUME 90 FL (80-99); MEAN PLATELET VOLUME 9.3 FL (7.4-10.4); MONOCYTES # (AUTO) 1.1 X 10^3 (0.0-1.0); MONOCYTES % (AUTO) 10 % (0-12); NEUTROPHILS # (AUTO) 8.7 X 10^3 (1.8-7.8); NEUTROPHILS % (AUTO) 78 % (42-75); PLATELET COUNT 126 10^3/uL (130-400); RED CELL DISTRIBUTION WIDTH 14.4 % (10.0-14.5); WHITE BLOOD COUNT 11.2 10^3/uL (4.3-11.0)
[2019-09-03 05:02] LABS: ALANINE AMINOTRANSFERASE 35 U/L (0-55); ALBUMIN 3.9 GM/DL (3.2-4.5); ALKALINE PHOSPHATASE 275 U/L (40-136); BILIRUBIN,TOTAL 1.1 MG/DL (0.1-1.0); BUN/CREATININE RATIO 29; CALCIUM 9.5 MG/DL (8.5-10.1); CARBON DIOXIDE 28 MMOL/L (21-32); CHLORIDE 88 MMOL/L (98-107); CREATININE SERUM 0.79 MG/DL (0.60-1.30); GFR ESTIMATED > 60; GLUCOSE 90 MG/DL (70-105); POTASSIUM 3.9 MMOL/L (3.6-5.0); SODIUM 128 MMOL/L (135-145); TOTAL PROTEIN 7.2 GM/DL (6.4-8.2)
[2019-09-03] MEDS: FUROSEMIDE 40 MG/4 ML INJ (LASIX) IV SCH (08:01)
[2019-09-03] MEDS: SENNA W/DOCUSATE (SENOKOT S) TABLET PO SCH ×2 (08:47→20:14)
--- NOTE | 2019-09-03 10:06 | Progress Note - Hospitalist ---
Subjective HPI/CC On Admission Date Seen by Provider: Sep 03, 2019 Time Seen by Provider: 09:00 CC: CHF with hyponatremia HPI: This is a 74yoWF clinic patient of [facility] known to me since last hospital stay she required [facility] admit 08/08/19 due to hyponatremia and severely debilitated status due to lung cancer with mets. Patient presented today to ER with hyponatremia on labs obtained by PCP and was found to have CHF requiring [facility] and Rajeev consultation services. Son updated on the plan for admit. Subjective/Events-last exam Pt lethargic today Wakes up a little bit and answers very simple questions PT and OT will be ordered Sodium level 128 Telemetry still maintained Diuresis seems to be going really well Review of Systems General: Fatigue Cardiovascular: Edema Focused Exam Lactate Level 09/01/19 12:00: Lactic Acid Level 1.80 Objective Exam Vital Signs Vital Signs Date Time Temp Pulse Resp B/P (MAP) Pulse Ox O2 Delivery O2 Flow Rate FiO2 09/03/19 16:00 94 Nasal Cannula 0.50 09/03/19 15:23 36.6 107 16 114/71 (85) Capillary Refill : Less Than 3 SecondsLess Than 3 Seconds General Appearance: No Apparent Distress, WD/WN, Chronically ill Respiratory: Lungs Clear Cardiovascular: Regular Rate, Rhythm Neurologic/Psychiatric: Alert, Disoriented Results/Procedures Lab Laboratory Tests 09/03/19 04:15 Patient resulted labs reviewed. Assessment/Plan Assessment and Plan Assess & Plan/Chief Complaint Assessment: CHF new dx Altered mental status Severe hyponatremia of 122 on admission acute on chronic now 128 Adenocarcinoma lung cancer with widespread metastasis Mass on brain on CT scan Plan: Oncology consultation Fluid restrict IV Lasix Seizure precautions 4th floor PT OT Diagnosis/Problems Diagnosis/Problems (1) CHF (congestive heart failure) (2) Lung cancer (3) Hypertension (4) Hyponatremia syndrome Status: Acute (5) Metastatic lung cancer (metastasis from lung to other site) Status: Acute Qualifiers: Laterality: unspecified laterality Qualified Codes: C34.90 - Malignant neoplasm of unspecified part of unspecified bronchus or lung (6) Volume overload Status: Acute Qualifiers: Hypervolemia type: unspecified Qualified Codes: E87.70 - Fluid overload, unspecified (7) Hypokalemia Status: Acute (8) Hypothyroidism Status: Chronic (9) DVT prophylaxis Status: Acute (10) Altered mental state Status: Resolved Resolution Date/Time: 02/05/18 @ 20:33 (11) Adenocarcinoma, lung Status: Chronic Clinical Quality Measures DVT/VTE Risk/Contraindication: Risk Factor Score Per Nursin RFS Level Per Nursing on Admit: 4+=Very High MINA PARIKH DO Sep 03, 2019 10:06
--- NOTE | 2019-09-03 10:39 | Cardiology Progress Note ---
Subjective Date Seen by Provider: Sep 03, 2019 Time Seen by Provider: 10:33 Subjective/Events-last exam Patient is sitting in a chair, awake, feeling better, tired. Eating breakfast Review of Systems General: No Chills, No Night Sweats; Fatigue, Malaise; No Appetite, No Other HEENT: No Head Aches, No Visual Changes, No Eye Pain, No Ear Pain, No Dysphasia, No Sinus Congestion, No Post Nasal Drip, No Sore Throat, No Other Pulmonary: No Dyspnea, No Cough, No Pleuritic Chest Pain, No Other Cardiovascular: No: Chest Pain, Palpitations, Orthopnea, Paroxysmal Noc. Dyspnea, Edema, Lt Headedness, Other Focused Exam Lactate Level 09/01/19 12:00: Lactic Acid Level 1.80 Objective-Cardiology Exam Last Set of Vital Signs Vital Signs 09/03/19 08:00 Temp 36.8 Pulse 74 Resp 16 B/P (MAP) 132/60 (84) Pulse Ox 94 O2 Delivery Room Air O2 Flow Rate 2.00 Capillary Refill : Less Than 3 SecondsLess Than 3 Seconds I&O Intake and Output 09/03/19 00:00 Intake Total 500 ml Output Total 1300 ml Balance -800 ml Intake Oral 500 ml Output Urine Total 1300 ml # Bowel Movements 1 General: Alert, Cooperative, Mild Distress HEENT: Atraumatic, PERRLA Neck: Supple, No JVD, No Thyromegaly Lungs: Normal Air Movement, Other (Rhonchi) Heart: Regular Rate, Normal S1, Normal S2, No Murmurs Abdomen: Normal Bowel Sounds, Soft, No Tenderness, No Hepatosplenomegaly, No Masses Extremities: No Clubbing, No Cyanosis, No Edema, Normal Pulses, No Tenderness/Swelling Skin: No Rashes, No Breakdown, No Significant Lesion Neuro: Normal Gait, Normal Speech, Strength at 5/5 X4 Ext, Normal Tone, Sensation Intact Psych/Mental Status: Mental Status NL, Mood NL Results Lab Laboratory Tests 09/03/19 04:15 A/P-Cardiology Admission Diagnosis Hyponatremia Metastatic lung cancer Coronary artery disease Debility Assessment/Plan Hyponatremia, 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 Generalized weakness, loss of energy. Small intracranial lesion, questionable small bleed versus metastases. Currently anticoagulation is on hold, need to be restarted especially with the recent pulmonary embolism Slight elevation in troponin, current conservative management CTA of the chest from 07-29-2019 showed - Small burden of pulmonary emboli to the subsegmental branches of the right lung. No evidence of right heart strain or pulmonary infarct. Findings suggestive of disease progression with increase in size and number of lung nodules and increase in size of the metastatic lesions throughout the liver. Coronary artery disease, status post cardiac catheterization on October 16, 2014 which showed mild disease nonobstructive disease with normal LV function, severe pulmonary hypertension Metastatic adenocarcinoma of the lung, stage IV, followed and managed by Dr. Wick History of DVT in 1975 Previously on OAC with Eliquis that is currently being held by the [facility] History of Graves' disease, followed and managed by primary care physician Clinical Quality Measures DVT/VTE Risk/Contraindication: Risk Factor Score Per Nursin RFS Level Per Nursing on Admit: 4+=Very High CHANEL TOMLINSON MD Sep 03, 2019 10:39
--- NOTE | 2019-09-03 11:25 | Physical Therapy Evaluation ---
PT Evaluation-General Medical Diagnosis Admission Date Sep 01, 2019 at 13:22 Medical Diagnosis: hyponatremia/metastatic lung cancer Onset Date: Sep 01, 2019 Therapy Diagnosis Therapy Diagnosis: generalized weakness/debility Height/Weight Height (Feet): 5 Height (Inches): 4.00 Weight (Pounds): 134 Weight (Ounces): 9.0 Precautions Precautions/Isolations: Fall Prevention, Standard Precautions Referral Physician: Veda Reason for Referral: Evaluation/Treatment Medical History Pertinent Medical History: GERD, HTN Additional Medical History metastatic lung cancer to brain Current History ER secondary to CHF and hyponatremia Reviewed History: Yes Social History Home: Jail Prior Prior Level of Function SCALE: Activities may be completed with or without assistive devices. 2-Nlqjchxegs-iaagvrx completes the activity by him/herself with no assistance from a helper. 5-Set-up or Clean-up Assistance-helper sets up or cleans up; patient completes activity. [place] assists only prior to or following the activity. 4-Supervision or Touching Assistance-helper provides verbal cues and/or touching/steadying and/or contact guard assistance as patient completes activ ity. Assistance may be provided throughout the activity or intermittently. 3-Partial/Moderate Assistance-helper does LESS THAN HALF the effort. [place] lifts, holds or supports trunk or limbs, but provides less than half the effort. 2-Substantial/Maximal Assistance-helper does MORE THAN HALF the effort. [place] lifts or holds trunk or limbs and provides more than half the effort. 1-Cpeyjtbji-evatbq does ALL the effort. Patient does none of the effort to complete the activity. Or, the assistance of 2 or more helpers is required for the patient to complete the activity. If activity was not attempted, code reason: 7-Patient Refused. 9-Not Applicable-not attempted and the patient did not perform the activity before the current illness, exacerbation or injury. 10-Not Attempted due to Environmental Limitations-(lack of equipment, weather restraints, etc.). 88-Not Attempted due to Medical Conditions or Safety Concerns. Bed Mobility: 4 Transfers (B,C,W/C): 4 Gait: 4 Stairs: 9 Indoor Mobility (Ambulation): Needed Some Help Prior Devices Use: Walker PT Evaluation-Current Subjective Patient does not speak Albanian. Agrees by sign. Patient appears listless/lethargic. Objective Patient Orientation: Person, Listless Attachments: Oxygen ROM/Strength ROM Lower Extremities bilateral LE WFL Strength Lower Extremities 3/5 grossly bilateral LE Integumentary/Posture Integumentary refer to nursing notes Bowel Incontinence: No Posture WFL Neuromuscular (Tone, Coordination, Reflexes) diminished coordination due to weakness Sensory Vision: Functional Hearing: Functional Sensation Right Lower Extremit: Intact Sensation Left Lower Extremity: Intact Transfers Roll Left to Right (QC): 3 Sit to Lying (QC): 3 Lying to Sitting/Side of Bed(Q: 3 Sit to Stand (QC): 3 Chair/Efd-gw-Iwrbe Xfer(QC): 3 Gait Does the Patient Walk?: No and Walking Goal IS indicated Comments/Gait Description patient declined ambulation at this time Balance Sitting Static: Fair Sitting Dynamic: Fair Standing Static: Fair Standing Dynamic: Fair Assessment/Needs 74 y.o. female, will benefit from skilled PT to address functional strength and mobility to improve current LOF to safely return to CT at maximum LOF. Rehab Potential: Guarded Post Rehab Potential-Barriers: metastatic cancer PT Explosives Operator Goals Detention Goals PT Explosives Operator Goals Time Frame: Sep 15, 2019 Roll Left & Right (QC): 5 Sit to Lying (QC): 5 Lying-Sitting on Side/Bed(QC): 5 Sit to Stand (QC): 5 Chair/Nvt-fy-Wjbpq Xfer(QC): 5 Toilet Transfer (QC): 5 Does the Patient Walk: Yes Walk 10 feet (QC): 5 Walk 50ft with 2 Turns (QC): 5 Walk 150 ft (QC): 5 PT Plan Problem List Problem List: Activity Tolerance, Functional Strength, Safety, Balance, Gait, Transfer, Bed Mobility Treatment/Plan Treatment Plan: Continue Plan of Care Treatment Plan: Bed Mobility, Education, Functional Activity Daniel, Functional Strength, Gait, Safety, Therapeutic Exercise, Transfers Treatment Duration: Sep 15, 2019 Frequency: 5 times per week Estimated Hrs Per Day: .25 hour per day Patient and/or Family Agrees t: Yes Discharge Recommendations Therapy Discharge Recommendati: 24 Hour Supervision (NH) Time/GCodes Time In: 1030 Time Out: 1043 Total Billed Treatment Time: 13 Total Billed Treatment 1 visit EVModC 13 min DASHA LUU PT Sep 03, 2019 11:25
--- NOTE | 2019-09-03 11:42 | Occupational Therapy Eval ---
OT Evaluation-General/PLF Medical Diagnosis Admission Date Sep 01, 2019 at 13:22 Medical Diagnosis: hyponatremia/metastatic lung cancer Onset Date: Sep 01, 2019 Therapy Diagnosis Therapy Diagnosis: impaired ADL/funcitonal mobility Height/Weight Height (Feet): 5 Height (Inches): 4.00 Weight (Pounds): 134 Weight (Ounces): 9.0 Precautions Precautions/Isolations: Fall Prevention, Standard Precautions Safety Interventions: None Referral Physician: Veda Referral Reason: Evaluation/Treatment Medical History Pertinent Medical History: GERD, HTN Additional Medical History CHF, thyroidectomy, pneumonia, DVT, heart murmur, HTN, TIA, chronic UTI, lung cancer Current History Per H&P: "HPI: This is a 74yoWF clinic patient of [facility] known to me since last hospital stay she required [facility] admit 08/08/19 due to hyponatremia and severely debilitated status due to lung cancer with mets. Patient presented today to ER with hyponatremia on labs obtained by PCP and was found to have CHF requiring Dr maryanne Metz and Rajeev consultation services. Son updated on the plan for admit." Social History Home: [facility] ADL-Prior Level of Function SCALE: Activities may be completed with or without assistive devices. 3-Cljnpsvoda-aglnbzp completes the activity by him/herself with no assistance from a helper. 5-Set-up or Clean-up Assistance-helper sets up or cleans up; patient completes activity. [place] assists only prior to or following the activity. 4-Supervision or Touching Assistance-helper provides verbal cues and/or touching/steadying and/or contact guard assistance as patient completes activity. Assistance may be provided throughout the activity or intermittently. 3-Partial/Moderate Assistance-helper does LESS THAN HALF the effort. [place] lifts, holds or supports trunk or limbs, but provides less than half the effort. 2-Substantial/Maximal Assistance-helper does MORE THAN HALF the effort. [place] lifts or holds trunk or limbs and provides more than half the effort. 7-Wmzctvstm-mafqfj does ALL the effort. Patient does none of the effort to complete the activity. Or, the assistance of 2 or more helpers is required for the patient to complete the activity. If activity was not attempted, code reason: 7-Patient Refused. 9-Not Applicable-not attempted and the patient did not perform the activity before the current illness, exacerbation or injury. 10-Not Attempted due to Environmental Limitations-(lack of equipment, weather restraints, etc.). 88-Not Attempted due to Medical Conditions or Safety Concerns. ADL PLOF Comments Pt admitted to [facility] on 08/08/2019 after her last hospital stay. Self Care: Needed Some Help Functional Cognition: Needed Some Help DME/Equipment Comments Walker OT Current Status Subjective Pt sitting upright in recliner, with breakfast tray in front of her. Khmer is not pt's primary language, but pt able to communicate with a little bit of Khmer during session. Mental Status/Objective Patient Orientation: Person Attachments: Oxygen Current Glasses/Contacts: Yes Hearing Aids: No Dentures/Partials: Yes Upper Extremity ROM Pt able to perform BUE shoulder flexion to approx 140 degrees wtih demo Upper Extremity Coordination decreased due to decreased strength. Upper Extremity Strength grossly 3/5 BUEs ADL-Treatment Eating (QC): 5 (Pt asking for sugar, OT guided pt to sugar packet on pt's lunch tray. She opened packet then held it in her hand for a couple minutes until OT held cup and asked pt to pour sugar in. OT then stirred coffee.) Other Treatments Pt seated upright in recliner with breakfast tray on tray table. Pt participated in ROM screening. She indicated she was done with her breakfast and did not want anymore, when OT attempted to remove tray, pt stated "no". OT left breakfast tray on tray table for pt. Pt appeared listless during session, and when OT asked her questions she would keep repeating a few words before attempting to finish the rest of her sentence. Post OT session, pt seated upright in recliner, call light in reach and all needs met. Education OT Patient Education: Correct positioning, Energy conservation, Modified ADL techniques, Progress toward Goal/Update tx plan, Purpose of tx/functional activities Teaching Recipient: Patient Teaching Methods: Discussion Response to Teaching: Reinforcement Needed OT Button Tufter Goals Button Tufter Goals Time Frame: Sep 14, 2019 Eating (QC): 5 Oral Hygiene (QC): 5 Toileting Hygiene (QC): 3 Shower/Bathe Self (QC): 3 Upper Body Dressing (QC): 3 Lower Body Dressing (QC): 3 On/Off Footwear (QC): 3 1=Demonstrate adherence to instructed precautions during ADL tasks. 2=Patient will verbalize/demonstrate understanding of assistive devices/modifications for ADL. 3=Patient will improve strength/tolerance for activity to enable patient to perform ADL's. OT Education/Plan Problem List/Assessment Assessment: Decreased Activ Tolerance, Decreased UE Strength, Impaired Coordination, Impaired Funct Balance, Impaired I ADL's, Impaired Self-Care Skills Discharge Recommendations Plan/Recommendations: Continue POC Treatment Plan/Plan of Care Patient would benefit from OT for education, treatment and training to promote independence in ADL's, mobility, safety and/or upper extremity function for ADL's. Plan of Care: ADL Retraining, Functional Mobility, UE Funct Exercise/Act Treatment Duration: Sep 14, 2019 Frequency: 5 times per week Estimated Hrs Per Day: .25 hour per day Rehab Potential: Guarded Time/GCodes Start Time: 11:25 Stop Time: 11:33 Total Time Billed (hr/min): 8 Billed Treatment Time 1, YEN MATT OT Sep 03, 2019 11:42
[2019-09-03] MEDS ORDERED: GUAI-977 PO (12:07)
[2019-09-03] MEDS ORDERED: NITR100C10 PO (12:08)
[2019-09-03] MEDS ORDERED: POLY17PO6 PO (12:08)
[2019-09-03] MEDS ORDERED: MAG30ORA2 PO (12:08)
[2019-09-03] MEDS ORDERED: APIX2.5T PO (12:08)
[2019-09-03] MEDS ORDERED: SOLI10TA7 PO (12:08)
[2019-09-03] MEDS ORDERED: NF-NACL1GT PO (12:19)
--- NOTE | 2019-09-03 12:21 | NUR ---
ENTERED THE MED REC USING THE PHYSICIAN VISIT FORM FROM [facility]- I DID SPEAK WITH THE FACILITY AND SPOKE WITH GADIEL. HE SAID THEY DID DISPENSE THE MEDS TO THE PT. I CALLED [facility]- ON 08-31-2019 THEY FILLED A SCRIPT FOR 3 TABS TID #90- HOWEVER THEY DID NOT HAVE 90 IN STOCK AND JUST GAVE #36- THEY SAID THEY DO HAVE THE REST IN AND HAVE COMPLETED THE RX IF NEEDED WHEN THE PT GETS DISCHARGED. I LET THEM KNOW TO PUT A NOTE ON THE BAG TO MAKE SURE SHE STILL NEEDS IT WHEN SHE LEAVES SO IT IS NOT DISPENSED IF THE PT NO LONGER NEED IT.
[2019-09-03] MEDS: ACETAMINOPHEN 500 MG TAB (TYLENOL) PO PRN (22:00)
[2019-09-03] MEDS: CALCIUM CARBONATE 500 MG (TUMS) TAB.CHEW PO PRN (22:00)
[2019-09-04] VITALS: BP 149/76
[2019-09-04 04:00] VITALS: BP 134/63
[2019-09-04] MEDS: fentaNYL INJECTION 100 MCG/2 ML AMP IVP PRN (04:49)
[2019-09-04] MEDS: ACETAMINOPHEN 500 MG TAB (TYLENOL) PO PRN ×2 (04:49→09:10)
[2019-09-04] MEDS: FUROSEMIDE 40 MG/4 ML INJ (LASIX) IV SCH (06:30)
[2019-09-04 06:33] LABS: BASOPHILS % (AUTO) 0 % (0-10); EOSINOPHILS # (AUTO) 0.5 10^3/uL (0.0-0.3); EOSINOPHILS % (AUTO) 4 % (0-10); HEMATOCRIT 31 % (35-52); HEMOGLOBIN 10.1 G/DL (11.5-16.0); LYMPHOCYTES # (AUTO) 0.9 X 10^3 (1.0-4.0); LYMPHOCYTES % (AUTO) 7 % (12-44); MEAN CORPUSCULAR HEMOGLOBIN 30 PG (25-34); MEAN CORPUSCULAR HGB CONC 33 G/DL (32-36); MEAN CORPUSCULAR VOLUME 90 FL (80-99); MEAN PLATELET VOLUME 9.4 FL (7.4-10.4); MONOCYTES # (AUTO) 1.4 X 10^3 (0.0-1.0); MONOCYTES % (AUTO) 11 % (0-12); NEUTROPHILS # (AUTO) 10.4 X 10^3 (1.8-7.8); NEUTROPHILS % (AUTO) 78 % (42-75); PLATELET COUNT 128 10^3/uL (130-400); RED CELL DISTRIBUTION WIDTH 14.6 % (10.0-14.5); WHITE BLOOD COUNT 13.3 10^3/uL (4.3-11.0)
[2019-09-04 06:45] LABS: BILIRUBIN,TOTAL 1.1 MG/DL (0.1-1.0); CREATININE SERUM 1.24 MG/DL (0.60-1.30); POTASSIUM 3.7 MMOL/L (3.6-5.0); TOTAL PROTEIN 7.5 GM/DL (6.4-8.2)
--- NOTE | 2019-09-04 07:50 | Cardiology Progress Note ---
Subjective Date Seen by Provider: Sep 04, 2019 Time Seen by Provider: 07:48 Subjective/Events-last exam Patient is laying down in bed, sleeping, no reported complaints Review of Systems General: Other (Unable to provide review of systems) Focused Exam Lactate Level 09/01/19 12:00: Lactic Acid Level 1.80 Objective-Cardiology Exam Last Set of Vital Signs Vital Signs 09/04/19 09/04/19 04:00 07:00 Temp 36.8 Pulse 74 Resp 18 B/P (MAP) 134/63 (86) Pulse Ox 94 O2 Delivery Nasal Cannula O2 Flow Rate 1.00 Capillary Refill : Less Than 3 SecondsLess Than 3 Seconds I&O Intake and Output 09/04/19 00:00 Intake Total 370 ml Output Total 1200 ml Balance -830 ml Intake Oral 370 ml Output Urine Total 1200 ml # Bowel Movements 3 General: Other (The patient) HEENT: Atraumatic Neck: Supple, No JVD, No Thyromegaly Lungs: Normal Air Movement, Other (Rhonchi) Heart: Regular Rate, Normal S1, Normal S2, No Murmurs Abdomen: Normal Bowel Sounds, Soft, No Tenderness, No Hepatosplenomegaly, No Masses Extremities: No Clubbing, No Cyanosis, No Edema, Normal Pulses, No Tenderness/Swelling Skin: No Rashes, No Breakdown, No Significant Lesion Neuro: Other (Generalized fatigue and lethargy) Psych/Mental Status: Mental Status NL, Mood NL Results Lab Laboratory Tests 09/04/19 06:15 A/P-Cardiology Admission Diagnosis Hyponatremia Metastatic lung cancer Coronary artery disease Debility Assessment/Plan Hyponatremia, probably SIADH, proving slowly, managed by primary care team Generalized weakness, loss of energy. Small intracranial lesion, questionable small bleed versus metastases. Currently anticoagulation is on hold, need to be restarted especially with the recent pulmonary embolism, consider repeating CT of the head or MRI Slight elevation in troponin, current conservative management CTA of the chest from 07-29-2019 showed - Small burden of pulmonary emboli to the subsegmental branches of the right lung. No evidence of right heart strain or pulmonary infarct. Findings suggestive of disease progression with increase in size and number of lung nodules and increase in size of the metastatic lesions throughout the liver. Coronary artery disease, status post cardiac catheterization on October 16, 2014 which showed mild disease nonobstructive disease with normal LV function, severe pulmonary hypertension Metastatic adenocarcinoma of the lung, stage IV, followed and managed by Dr. Wick History of DVT in 1975 Previously on OAC with Eliquis that is currently being held by the Medical Service History of Graves' disease, followed and managed by primary care physician Clinical Quality Measures DVT/VTE Risk/Contraindication: Risk Factor Score Per Nursin RFS Level Per Nursing on Admit: 4+=Very High CHANEL TOMLINSON MD Sep 04, 2019 07:50
[2019-09-04 08:00] VITALS: BP 134/64
[2019-09-04] MEDS: SENNA W/DOCUSATE (SENOKOT S) TABLET PO SCH ×2 (09:09→20:44)
[2019-09-04] MEDS: CALCIUM CARBONATE 500 MG (TUMS) TAB.CHEW PO PRN ×2 (09:10→16:59)
--- NOTE | 2019-09-04 10:06 | Progress Note - Hospitalist ---
Subjective HPI/CC On Admission Date Seen by Provider: Sep 04, 2019 Time Seen by Provider: 09:15 CC: CHF with hyponatremia HPI: This is a 74yoWF clinic patient of [facility] known to me since last hospital stay she required [facility] admit 08/08/19 due to hyponatremia and severely debilitated status due to lung cancer with mets. Patient presented today to ER with hyponatremia on labs obtained by PCP and was found to have CHF requiring [facility] and [facility]eev consultation services. Son updated on the plan for admit. Subjective/Events-last exam Pt remains mostly listless Getting ready to get out of the bed to go to the commode Nursing doesn't have any concerns she is just chronically ill Sodium level now 129 on fluid restriction Procalcitonin elevated, I suspect recurrent pneumonia, will complete septic protocol and follow up on those results Pt very ill and her prognosis is extremely poor White count remains elevated at 13 CXR reveals extensive infiltrates c/w PNA with elevated lactic acid and elevated procalcitonin Review of Systems General: Fatigue Neurological: Confusion Focused Exam Lactate Level 09/04/19 12:55: Lactic Acid Level 3.06*H 09/04/19 15:35: Lactic Acid Level 2.38*H 09/04/19 18:25: Lactic Acid Level 2.01*H Lactic Acid Level Laboratory Tests Test 09/04/19 15:35 09/04/19 18:25 Lactic Acid Level 2.38 MMOL/L (0.50-2.00) *H 2.01 MMOL/L (0.50-2.00) *H Objective Exam Vital Signs Vital Signs Date Time Temp Pulse Resp B/P (MAP) Pulse Ox O2 Delivery O2 Flow Rate FiO2 09/04/19 16:26 Nasal Cannula 1.00 09/04/19 15:48 36.3 73 18 128/60 (82) 98 Capillary Refill : Less Than 3 SecondsLess Than 3 Seconds General Appearance: No Apparent Distress, WD/WN, Chronically ill Respiratory: Lungs Clear Cardiovascular: Regular Rate, Rhythm Neurologic/Psychiatric: Alert, Other (Confused) Results/Procedures Lab Laboratory Tests 09/04/19 06:15 Patient resulted labs reviewed. Assessment/Plan Assessment and Plan Assess & Plan/Chief Complaint Assessment: Sepsis PNA facility acquired CHF new dx Altered mental status Severe hyponatremia of 122 on admission acute on chronic now 128 Adenocarcinoma lung cancer with widespread metastasis Mass on brain on CT scan Plan: Oncology consultation Gentle IVF IV abx Prognosis become more and more poor each day Fluid restrict IV Lasix Seizure precautions 4th floor PT OT Diagnosis/Problems Diagnosis/Problems (1) Sepsis Status: Acute (2) Pneumonia Status: Resolved Resolution Date/Time: 08/07/19 @ 13:14 (3) CHF (congestive heart failure) (4) Lung cancer (5) Hypertension (6) Hyponatremia syndrome Status: Acute (7) Metastatic lung cancer (metastasis from lung to other site) Status: Acute Qualifiers: Laterality: unspecified laterality Qualified Codes: C34.90 - Malignant neoplasm of unspecified part of unspecified bronchus or lung (8) Volume overload Status: Acute Qualifiers: Hypervolemia type: unspecified Qualified Codes: E87.70 - Fluid overload, unspecified (9) Hypokalemia Status: Acute (10) Hypothyroidism Status: Chronic (11) DVT prophylaxis Status: Acute (12) Altered mental state Status: Resolved Resolution Date/Time: 02/05/18 @ 20:33 (13) Adenocarcinoma, lung Status: Chronic Clinical Quality Measures DVT/VTE Risk/Contraindication: Risk Factor Score Per Nursin RFS Level Per Nursing on Admit: 4+=Very High MINA PARIKH DO Sep 04, 2019 10:06
[2019-09-04] MEDS ORDERED: VANCOMYCIN INJECTION 0.1 MG in NS (IVPB) 250 ML IV SCH (10:15)
--- NOTE | 2019-09-04 10:17 | Physical Therapy Daily Note ---
PT Daily Note-Current Subjective Patient is more alert on this date and able to participate with therapy. Mental Status Attachments: Oxygen (continuous) Transfers SCALE: Activities may be completed with or without assistive devices. 2-Asdqpiqgyp-zjvghni completes the activity by him/herself with no assistance from a helper. 5-Set-up or Clean-up Assistance-helper sets up or cleans up; patient completes activity. [place] assists only prior to or following the activity. 4-Supervision or Touching Assistance-helper provides verbal cues and/or touching/steadying and/or contact guard assistance as patient completes activity. Assistance may be provided throughout the activity or intermittently. 3-Partial/Moderate Assistance-helper does LESS THAN HALF the effort. [place] lifts, holds or supports trunk or limbs, but provides less than half the effort. 2-Substantial/Maximal Assistance-helper does MORE THAN HALF the effort. [place] lifts or holds trunk or limbs and provides more than half the effort. 3-Fgiumiqst-ssycpv does ALL the effort. Patient does none of the effort to complete the activity. Or, the assistance of 2 or more helpers is required for the patient to complete the activity. If activity was not attempted, code reason: 7-Patient Refused. 9-Not Applicable-not attempted and the patient did not perform the activity before the current illness, exacerbation or injury. 10-Not Attempted due to Environmental Limitations-(lack of equipment, weather restraints, etc.). 88-Not Attempted due to Medical Conditions or Safety Concerns. Roll Left & Right (QC): 3 Sit to Lying (QC): 3 Lying to Sitting/Side of Bed(Q: 3 Sit to Stand (QC): 3 Chair/Iwp-cc-Avanp Xfer(QC): 3 Toilet Transfer (QC): 3 Gait Training Does the Patient Walk?: Yes Distance: 50' x 2 Walk 10 feet (QC): 4 Walk 50 ft with 2 Turns(QC): 4 Gait Assistive Device: FWW slow, steady gait sequence with noted increase in fatigue with minimal activity. Assessment Patient is up in recliner with breakfast in situ. PT to increase activity as tolerated by patient. PT Skilled Nursing Goals Otolaryngology Surgeon Goals PT Skilled Nursing Goals Time Frame: Sep 15, 2019 Roll Left & Right (QC): 5 Sit to Lying (QC): 5 Lying-Sitting on Side/Bed(QC): 5 Sit to Stand (QC): 5 Chair/Plp-kk-Lzagc Xfer(QC): 5 Toilet Transfer (QC): 5 Does the Patient Walk: Yes Walk 10 feet (QC): 5 Walk 50ft with 2 Turns (QC): 5 Walk 150 ft (QC): 5 PT Plan Treatment/Plan Treatment Plan: Continue Plan of Care Treatment Plan: Bed Mobility, Education, Functional Activity Daniel, Functional Strength, Gait, Safety, Therapeutic Exercise, Transfers Treatment Duration: Sep 15, 2019 Frequency: 5 times per week Estimated Hrs Per Day: .25 hour per day Patient and/or Family Agrees t: Yes Time/GCodes Time In: 945 Time Out: 1000 Total Billed Treatment Time: 15 Total Billed Treatment 1 visit GT 15 min DASHA LUU PT Sep 04, 2019 10:17
[2019-09-04] MEDS ORDERED: PIPERACILLIN/TAZO 4.5 GM/NS 100 ML IV NR ×2 (10:24)
--- NOTE | 2019-09-04 10:31 | NUR ---
LEAD RT NOTIFIED OF ABG ORDERED.
--- NOTE | 2019-09-04 10:43 | Diagnostic Imaging Report ---
INDICATION: Abnormal breath sounds. Frontal chest obtained at 10:33 a.m. and compared to 09/02/2019. Extensive bilateral infiltrates are present and unchanged compared to the prior study. There is unchanged elevation of the right hemidiaphragm with some right pleural fluid. Port-A-Cath is stable. IMPRESSION: Unchanged extensive bilateral infiltrates and small right pleural effusion. Unchanged elevation of the right hemidiaphragm. Dictated by: Dictated on workstation # [id number]
[2019-09-04] MEDS ORDERED: VANCOMYCIN 1500 MG/NS 500 ML IVPB IV NR ×2 (11:00)
--- NOTE | 2019-09-04 11:05 | Occupational Ther Daily Note ---
OT Current Status-Daily Note Subjective Pt alert, lying in bed. Nrsg present in room. Pt agrees to therapy. Due to language issues, difficulty to assess pt's cognition. Son called nrsg and wanted to know about mother's progress. Mental Status/Objective Patient Orientation: Person Attachments: Bui Catheter, IV, Oxygen ADL-Treatment Min A for supine to EOB. Min A due to unsteadiness to transfer from EOB to BSC. Pt required assist to manipulate brief for toileting. Pt declined to attempt to cleanse self after BM, assist given to cleanse buttocks/joan area. Pt required assist to doff/don briefs. Pt able to wash face when handed warm cloth. Pt transferred to recliner with CGA, verbal cues for correct hand placement to push up. Assist to set up meal then pt able to eat with regular utensils. PT took over care of pt. All needs met in room. Therapy Code Descriptions/Definitions Functional [place] Measure: 0=Not Assessed/NA 4=Minimal Assistance 1=Total Assistance 5=Supervision or Setup 2=Maximal Assistance 6=Modified [place] 3=Moderate Assistance 7=Complete IndependenceSCALE: Activities may be completed with or without assistive devices. 1-Lefhuxigrq-gyxreix completes the activity by him/herself with no assistance from a helper. 5-Set-up or Clean-up Assistance-helper sets up or cleans up; patient completes activity. [place] assists only prior to or following the activity. 4-Supervision or Touching Assistance-helper provides verbal cues and/or touching/steadying and/or contact guard assistance as patient completes activity. Assistance may be provided throughout the activity or intermittently. 3-Partial/Moderate Assistance-helper does LESS THAN HALF the effort. [place] lifts, holds or supports trunk or limbs, but provides less than half the effort. 2-Substantial/Maximal Assistance-helper does MORE THAN HALF the effort. [place] lifts or holds trunk or limbs and provides more than half the effort. 2-Vulvliejy-uvbvni does ALL the effort. Patient does none of the effort to complete the activity. Or, the assistance of 2 or more helpers is required for the patient to complete the activity. If activity was not attempted, code reason: 7-Patient Refused. 9-Not Applicable-not attempted and the patient did not perform the activity before the current illness, exacerbation or injury. 10-Not Attempted due to Environmental Limitations-(lack of equipment, weather restraints, etc.). 88-Not Attempted due to Medical Conditions or Safety Concerns. Eating (QC): 5 Lower Body Dressing (QC): 2 On/Off Footwear: 2 Toileting Hygiene (QC): 2 Toilet Transfer (QC): 3 OT Residential Goals Director Quality Systems Goals Time Frame: Sep 14, 2019 Eating (QC): 5 Oral Hygiene (QC): 5 Toileting Hygiene (QC): 3 Shower/Bathe Self (QC): 3 Upper Body Dressing (QC): 3 Lower Body Dressing (QC): 3 On/Off Footwear (QC): 3 1=Demonstrate adherence to instructed precautions during ADL tasks. 2=Patient will verbalize/demonstrate understanding of assistive devices/modifications for ADL. 3=Patient will improve strength/tolerance for activity to enable patient to perform ADL's. OT Education/Plan Problem List/Assessment Assessment: Decreased Activ Tolerance, Decreased Safety Aware, Impaired Funct Balance, Impaired Self-Care Skills Discharge Recommendations Plan/Recommendations: Continue POC Treatment Plan/Plan of Care Patient would benefit from OT for education, treatment and training to promote independence in ADL's, mobility, safety and/or upper extremity function for ADL's. Plan of Care: ADL Retraining, Functional Mobility, UE Funct Exercise/Act Treatment Duration: Sep 14, 2019 Frequency: 5 times per week Estimated Hrs Per Day: .25 hour per day Rehab Potential: Guarded Time/GCodes Start Time: 09:20 Stop Time: 09:45 Total Time Billed (hr/min): 25 Billed Treatment Time 1 visit-ADL 2 (25 min) TONE METZGER Sep 04, 2019 11:05
[2019-09-04] MEDS ORDERED: ACETAMINOPHEN 500 MG TAB (TYLENOL) ONE (11:10)
[2019-09-04 11:17] LABS: ABG BASE EXCESS 7.1 MMOL/L (-2.5-2.5); ABG OXYGEN SATURATION 97 % (94-100); ABG PCO2 42 MMHG (35-45); ABG PH 7.48 (7.37-7.43); ABG PO2 80 MMHG (79-93); ABG TCO2 32.3 MMOL/L (21.0-31.0)
[2019-09-04 11:21] LABS: ALLENS TEST YES-POS; INSPIRED O2 1; PATIENT TEMP 36.6; VENTILATOR NO
[2019-09-04] MEDS: PANTOPRAZOLE 40 MG (PROTONIX) TAB PO SCH (11:32)
[2019-09-04 12:01] VITALS: BP 130/60
[2019-09-04] MEDS ORDERED: NS IV 1000 ML 1,000 ML IV SCH (12:15)
--- NOTE | 2019-09-04 14:34 | NUR ---
"RD ASSESSMENT PMHx: DVT; HTN; TIA; chronic-UTI; GERD; liver disease; metastatic lung CA PT INTERACTION: Pt was awake and pleasant during nutrition assessment. Note pt has speaks little Greenlandic and son was present at bedside to act as director education. Pt states appetite was good at [facility] where she is a resident. Note avg PO intake 35% of meals, per chart review. Pt states no recent issues with n/v/c/d at this time. Note last BM was 09/03 and pt currently on bowel regimen of senna BID, per chart review. Note unable to determine recent wt hx, per chart review. ABNORMAL NUTRITION-RELATED LAB VALUES LOW: Na 129; Cl 87 HIGH: BUN 73; bili 1.1; AST 121; ALT 78; alkphos 412 Est. kcal needs: 9506-2847 kcal | 20-25 kcal/kg Est. Pro needs: 70-84 g Pro | 1.0-1.2 g Pro/kg PES STATEMENT: Inadequate oral intake (NI-2.1) related to loss of appetite | AMS as evidenced by pt (son) interview | avg PO intake 35% of meals INTERVENTION: Continue with current diet order of Regular diet. Encouraged pt to eat when able. D/t fluid restriction, cannot make a recommendation for a nutrition supplement at this time. Will continue to follow and reassess as pt needs, intake, and status change. MONITOR/EVALUATE: PO Intake; Plan of Care; Hydration Status; Weight Status; Lab Values Zara Araujo, MS, RD, LD"
[2019-09-04 15:00] LABS: BILIRUBIN,URINE NEGATIVE (NEGATIVE); CLARITY,URINE CLEAR; COLOR,URINE YELLOW; GLUCOSE, URINE (UA) NEGATIVE (NEGATIVE); KETONES,URINE NEGATIVE (NEGATIVE); LEUKOCYTE ESTERASE ,URINE NEGATIVE (NEGATIVE); NITRITE,URINE NEGATIVE (NEGATIVE); PH,URINE 5.5 (5-9); PROTEIN,URINE NEGATIVE (NEGATIVE)
[2019-09-04 15:17] LABS: BACTERIA,URINE MODERATE /HPF; WBC,URINE RARE /HPF
[2019-09-04 15:48] VITALS: BP 128/60
[2019-09-04] MEDS: PIPERACILLIN/TAZOBACTAM (BULK) 4.5 GM in NS (IVPB) 100 ML IV SCH (16:41)
[2019-09-04 19:48] VITALS: BP 123/59
[2019-09-04] MEDS: CALCIUM CARBONATE 500 MG (TUMS) TAB.CHEW PO SCH (20:44)
--- NOTE | 2019-09-04 21:27 | CONSULTATION REPORT ---
DATE OF SERVICE: 09/04/2019 The patient is admitted to room 409. PHYSICIAN REQUESTING CONSULTATION: Christi Mccollum DO IMPRESSION: 1. A 74-year-old female admitted to the hospital with hyponatremia and increasing weakness. 2. Leukocytosis with an elevated lactic acid level, rule out sepsis syndrome. 3. Urinary tract infection. 4. Metastatic nonsmall cell lung cancer, adenocarcinoma subtype with EGFR mutation diagnosed more than 4-1/2 years ago and on various treatments. 5. Recent evidence of progressive disease in the lung as well as new liver metastasis by CT scans. RECOMMENDATIONS: 1. Continue broad-spectrum antibiotics until the culture and sensitivity of the urine is available and change antibiotic therapy if necessary. 2. Agree with diuretics cautiously because of evidence of fluid overload at the time of admission. If patient develops hypotension, discontinue diuretics and start normal saline IV. 3. With regards to the hyponatremia, this may be related to SIADH from lung lesions or brain metastasis. This could also be related to her bladder infection. Monitor serially. 4. Once the patient's general status improves, may consider physical therapy for strengthening and ambulation. 5. With regards to metastatic non-small cell lung cancer, her prognosis is poor with very few treatment options as she has been on multiple treatments over the last 4-1/2 to 5 years. If her general condition does not improve, I would recommend best supportive care with hospice. 6. We will follow the patient with you. BRIEF HISTORY: The patient is a 74-year-old female with history of metastatic non-small cell lung cancer, adenocarcinoma subtype with EGFR mutation diagnosed in 2014. She has been on multiple treatments, most recent being single agent gemcitabine. This was stopped approximately two months ago because of deconditioning. The patient was brought to the emergency room because of weakness and hyponatremia and admitted to the hospital. Initially, she was treated with diuretic because of possible fluid overload with improvement of symptoms as well as hyponatremia. She was noted to have a UTI with elevated lactic acid level and possible sepsis syndrome. She was started on broad spectrum antibiotics and an oncology consultation was obtained for concurrent care. PAST MEDICAL HISTORY: Significant for metastatic nonsmall cell lung cancer, adenocarcinoma subtype with EGFR mutation diagnosed in 2014. She was initially treated with erlotinib from 12/2014 until 10/2016. At the time of progression, she was found to have T790M mutation and the treatment changed to osimertinib from 10/2016 until 09/2017 when she developed progression. She underwent palliative radiation to the right arm and scapula as well as whole brain for metastatic disease and completed by 11/2017. She was then treated with Keytruda for 4 cycles with progressive disease. Chemotherapy was changed to carboplatin and paclitaxel for 4 cycles with the major reaction to carboplatin. She was treated with single agent paclitaxel for 2 more cycles, but stopped because of neuropathy. Treatment was changed to Abraxane for 4 cycles, but developed progressive disease. She has been on treatment with single agent gemcitabine for nine months with the stable disease. This was stopped approximately 6 weeks ago because of deconditioning. Other significant medical history include Graves' disease in the late 70s requiring left thyroid lobectomy. Other significant history includes pulmonary hypertension and pulmonary embolism diagnosed in 07/2019. Coronary artery disease with a cardiac catheterization in 09/2014. Remote history of DVT in 1975. PAST SURGICAL HISTORY: Other surgeries include thyroidectomy, hysterectomy, varicose vein stripping and cataract surgery. SOCIAL HISTORY: The patient is and lives in [place], [place]. She has two children, son who is a professor at [employer] and a daughter who lives in [place], [place]. 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 She was born and brought up in [place]. She worked in [employer] from 1978 until 2007 before retiring. She immigrated to the [place] in [place]. She denied any history of tobacco, alcohol or other recreational drug use. FAMILY HISTORY: Significant for her sister who was diagnosed with lung cancer and is a nonsmoker also. Half brother on the paternal side of the family diagnosed with leukemia. Niece was diagnosed with thyroid cancer. Both her parents had hypertension and coronary artery disease. PHYSICAL EXAMINATION: GENERAL: Today showed an elderly female, well developed and nourished, weak appearing, awake and answering questions fairly, but unable to speak [place] very well. VITAL SIGNS: Temperature was 36.3, pulse rate 73, respirations 18, blood pressure 128/60 with oxygen saturation of 98% on 1 liter of oxygen by nasal cannula. HEENT: Normocephalic, extraocular muscles intact, conjunctivae pink, oral mucosa moist. NECK: Supple, with no JVD. No cervical, supraclavicular or axillary lymphadenopathy palpable. CHEST: Symmetrical with a port. LUNGS: With diminished breath sounds bilaterally with occasional rhonchi heard. No wheezes or rales heard. CARDIOVASCULAR: Tachycardic, with a grade II murmur. ABDOMEN: Obese, soft, nontender with no hepatosplenomegaly or other masses palpable. Mild tenderness in the epigastric/left upper quadrant area. EXTREMITIES: Showed 1+ edema around the ankles. NEUROLOGIC: Showed no focal motor deficits. Overall, motor strength was 4/5 bilaterally. LABORATORY DATA: CBC done today showed WBC 13.3, hemoglobin 10.1, platelet count 128,000 with neutrophil count 10.4, lymphocyte count 0.9 and monocyte count 1.4. Chemistry panel done today showed sodium level of 129 and chloride 87. BUN was 37 and creatinine 1.24 with GFR 43 mL per minute. Corrected calcium was 10.0. Liver function studies were abnormal with a total bilirubin of 1.1, AST 121, ALT 78 and alkaline phosphatase of 412. Albumin was 4.0. Urinalysis done today showed 10 to 25 RBCs per high power field and rare WBC. Moderate bacteria was noted with nitrites negative. Culture is pending. Influenza nasal swab was negative. Blood cultures from 09/01/2019 was negative with no growth so far. The patient had CT angiogram of the chest done on 07/29/2019, which showed small burden PE to the subsegmental branches of the right lung. No evidence of right heart strain or pulmonary infarct. There is progression of disease in the liver as well as lungs. Thank you for allowing me to participate in this patient's care. I will follow the patient with you and make appropriate recommendations. Job ID: [id number] DocumentID: [id number] Dictated Date: 09/04/2019 18:49:47 Sexual Assault Response Coordinator Date: 09/04/2019 21:26:38 Dictated By: SANTIAGO GARZA MD
[2019-09-05] VITALS: BP 128/64
[2019-09-05] MEDS: PIPERACILLIN/TAZOBACTAM (BULK) 4.5 GM in NS (IVPB) 100 ML IV SCH ×3 (01:05→16:23)
[2019-09-05 04:00] VITALS: BP 128/89
[2019-09-05 06:40] LABS: BASOPHILS # (AUTO) 0.1 10^3/uL (0.0-0.1); BASOPHILS % (AUTO) 0 % (0-10); EOSINOPHILS # (AUTO) 0.5 10^3/uL (0.0-0.3); EOSINOPHILS % (AUTO) 5 % (0-10); HEMATOCRIT 29 % (35-52); HEMOGLOBIN 9.4 G/DL (11.5-16.0); LYMPHOCYTES # (AUTO) 0.8 X 10^3 (1.0-4.0); LYMPHOCYTES % (AUTO) 7 % (12-44); MEAN CORPUSCULAR HEMOGLOBIN 30 PG (25-34); MEAN CORPUSCULAR HGB CONC 33 G/DL (32-36); MEAN CORPUSCULAR VOLUME 92 FL (80-99); MEAN PLATELET VOLUME 9.5 FL (7.4-10.4); MONOCYTES # (AUTO) 0.8 X 10^3 (0.0-1.0); MONOCYTES % (AUTO) 8 % (0-12); NEUTROPHILS # (AUTO) 8.9 X 10^3 (1.8-7.8); NEUTROPHILS % (AUTO) 80 % (42-75); PLATELET COUNT 114 10^3/uL (130-400); RED CELL DISTRIBUTION WIDTH 14.4 % (10.0-14.5); WHITE BLOOD COUNT 11.1 10^3/uL (4.3-11.0)
[2019-09-05 07:02] LABS: ALANINE AMINOTRANSFERASE 55 U/L (0-55); ALBUMIN 3.8 GM/DL (3.2-4.5); ALKALINE PHOSPHATASE 339 U/L (40-136); BILIRUBIN,TOTAL 1.1 MG/DL (0.1-1.0); BUN/CREATININE RATIO 28; CALCIUM 9.5 MG/DL (8.5-10.1); CARBON DIOXIDE 27 MMOL/L (21-32); CHLORIDE 92 MMOL/L (98-107); CREATININE SERUM 0.88 MG/DL (0.60-1.30); GFR ESTIMATED > 60; GLUCOSE 94 MG/DL (70-105); POTASSIUM 3.6 MMOL/L (3.6-5.0); SODIUM 132 MMOL/L (135-145)
[2019-09-05 08:00] VITALS: BP 126/61
[2019-09-05] MEDS: SENNA W/DOCUSATE (SENOKOT S) TABLET PO SCH ×2 (08:28→21:25)
[2019-09-05] MEDS: PANTOPRAZOLE 40 MG (PROTONIX) TAB PO SCH (08:28)
[2019-09-05] MEDS: CALCIUM CARBONATE 500 MG (TUMS) TAB.CHEW PO SCH ×3 (08:28→21:27)
--- NOTE | 2019-09-05 08:55 | Cardiology Progress Note ---
Subjective Date Seen by Provider: Sep 05, 2019 Time Seen by Provider: 08:54 Subjective/Events-last exam Patient up walking with PT, denies any chest pain, reports some dyspnea. Review of Systems General: No Chills, No Night Sweats; Fatigue, Malaise; No Appetite, No Other HEENT: No Head Aches, No Visual Changes, No Eye Pain, No Ear Pain, No Dysphasia, No Sinus Congestion, No Post Nasal Drip, No Sore Throat, No Other Pulmonary: No Dyspnea, No Cough, No Pleuritic Chest Pain, No Other Cardiovascular: No: Chest Pain, Palpitations, Orthopnea, Paroxysmal Noc. Dyspnea, Edema, Lt Headedness, Other Focused Exam Lactate Level 09/04/19 15:35: Lactic Acid Level 2.38*H 09/04/19 18:25: Lactic Acid Level 2.01*H 09/04/19 21:40: Lactic Acid Level 2.25*H Objective-Cardiology Exam Last Set of Vital Signs Vital Signs 09/05/19 11:30 Temp 36.0 Pulse 74 Resp 20 B/P (MAP) 125/61 (82) Pulse Ox 96 O2 Delivery Nasal Cannula O2 Flow Rate 1.00 Capillary Refill : Less Than 3 SecondsLess Than 3 Seconds I&O Intake and Output 09/05/19 00:00 Intake Total 742 ml Output Total 1900 ml Balance -1158 ml Intake Oral 622 ml IV Total 120 ml Output Urine Total 1900 ml General: Alert, Oriented X3, Cooperative HEENT: Atraumatic Neck: Supple, No JVD, No Thyromegaly Lungs: Normal Air Movement, Other (R[place]) Heart: Regular Rate, Normal S1, Normal S2, No Murmurs Abdomen: Normal Bowel Sounds, Soft, No Tenderness, No Hepatosplenomegaly, No Masses Extremities: No Clubbing, No Cyanosis, No Edema, Normal Pulses, No Tenderness/Swelling Skin: No Rashes, No Breakdown, No Significant Lesion Neuro: Other (Generalized fatigue and lethargy) Psych/Mental Status: Mental Status NL, Mood NL Results Lab Laboratory Tests 09/05/19 06:30 A/P-Cardiology Admission Diagnosis Hyponatremia Metastatic lung cancer Coronary artery disease Debility Assessment/Plan Hyponatremia, probably SIADH, improving slowly, managed by primary care team Questionable pneumonia and sepsis, receiving antibiotic and managed by primary care team Generalized weakness, loss of energy. Small intracranial lesion, questionable small bleed versus metastases. Currently anticoagulation is on hold, need to be restarted especially with the recent pulmonary embolism, consider repeating CT of the head or MRI Slight elevation in troponin, current conservative management CTA of the chest from 07-29-2019 showed - Small burden of pulmonary emboli to the subsegmental branches of the right lung. No evidence of right heart strain or p ulmonary infarct. Findings suggestive of disease progression with increase in size and number of lung nodules and increase in size of the metastatic lesions throughout the liver. Coronary artery disease, status post cardiac catheterization on October 16, 2014 which showed mild disease nonobstructive disease with normal LV function, severe pulmonary hypertension Metastatic adenocarcinoma of the lung, stage IV, followed and managed by Dr. Wick History of DVT in 1975 Previously on OAC with Eliquis that is currently being held by the Medical Service History of Graves' disease, followed and managed by primary care physician Patient was seen and evaluated with May, examination performed, management plan was discussed, agree with the current scribed note, I made few changes to the note using Italic font Patient is sitting in a chair, complain of generalized weakness, no chest pain Receiving antibiotic, having elevated lactic acid Being treated for presumably pneumonia and sepsis by medical service Cardiac status at this time is stable but patient will need to be started on oral anticoagulation as soon as possible Clinical Quality Measures DVT/VTE Risk/Contraindication: Risk Factor Score Per Nursin RFS Level Per Nursing on Admit: 4+=Very High MAY AUGUSTIN Sep 05, 2019 08:55 CHANEL TOMLINSON MD Sep 05, 2019 11:37
[2019-09-05] MEDS: ACETAMINOPHEN 500 MG TAB (TYLENOL) PO PRN (08:59)
--- NOTE | 2019-09-05 10:08 | Physical Therapy Daily Note ---
PT Daily Note-Current Subjective Pt agreeable to PT session, son present and interpreting for pt. Pain Numeric Pain Scale: 0-No Pain Appearance Upon arrival, pt sitting up in recliner with son present. At end of session, pt sitting up in recliner with call light, phone and bedside table within reach. Mental Status Patient Orientation: Person, Place, Time, Eyes Open, Situation Attachments: Oxygen Transfers SCALE: Activities may be completed with or without assistive devices. 7-Syjiegxcsd-gfkpgpk completes the activity by him/herself with no assistance from a helper. 5-Set-up or Clean-up Assistance-helper sets up or cleans up; patient completes activity. [place] assists only prior to or following the activity. 4-Supervision or Touching Assistance-helper provides verbal cues and/or touching/steadying and/or contact guard assistance as patient completes activity. Assistance may be provided throughout the activity or intermittently. 3-Partial/Moderate Assistance-helper does LESS THAN HALF the effort. [place] lifts, holds or supports trunk or limbs, but provides less than half the effort. 2-Substantial/Maximal Assistance-helper does MORE THAN HALF the effort. [place] lifts or holds trunk or limbs and provides more than half the effort. 7-Xfponhhcc-bvwrsx does ALL the effort. Patient does none of the effort to complete the activity. Or, the assistance of 2 or more helpers is required for the patient to complete the activity. If activity was not attempted, code reason: 7-Patient Refused. 9-Not Applicable-not attempted and the patient did not perform the activity be fore the current illness, exacerbation or injury. 10-Not Attempted due to Environmental Limitations-(lack of equipment, weather restraints, etc.). 88-Not Attempted due to Medical Conditions or Safety Concerns. Sit to Stand (QC): 4 (CGA, min verb inst) Gait Training Does the Patient Walk?: Yes Distance: 90, 70 Walk 10 feet (QC): 4 Walk 50 ft with 2 Turns(QC): 3 Gait Persons Needed: 1 Gait Assistive Device: FWW slow gait, decreased step length and height, occasional path deviation, occasional assist to guide walker from running into objects, skilled verb inst to increase step length and height, increasing fatigue with increasing distance, SOA, short standing rest breaks during gait distances, long sitting rest break required between gait distances to recover, report of occasional dizziness Exercises Seated Therapy Exercises: Ankle pumps (10), Sit to stand (5), Long arc quads (10), Hip abd/add (10) Treatments education, safety, transfers, gait, functional mobility, strength, activity tolerance. SPO2 96% at end of therapy session Assessment Pt able to increase gait distance but continues to fatigue with SOA and requiring long rest break to recover, SPO2 96%. PT Meat Trimmer Goals Shelter Goals PT Shelter Goals Time Frame: Sep 15, 2019 Roll Left & Right (QC): 5 Sit to Lying (QC): 5 Lying-Sitting on Side/Bed(QC): 5 Sit to Stand (QC): 5 Chair/Cxl-ml-Offmo Xfer(QC): 5 Toilet Transfer (QC): 5 Does the Patient Walk: Yes Walk 10 feet (QC): 5 Walk 50ft with 2 Turns (QC): 5 Walk 150 ft (QC): 5 PT Plan Treatment/Plan Treatment Plan: Continue Plan of Care Treatment Plan: Bed Mobility, Education, Functional Activity Daniel, Functional Strength, Gait, Safety, Therapeutic Exercise, Transfers Treatment Duration: Sep 15, 2019 Frequency: 5 times per week Estimated Hrs Per Day: .25 hour per day Patient and/or Family Agrees t: Yes Safety Risks/Education Patient Education: Gait Training, Transfer Techniques, Safety Issues Teaching Recipient: Patient Teaching Methods: Demonstration, Discussion Response to Teaching: Verbalize Understanding, Return Demonstration Time/GCodes Time In: 823 Time Out: 856 Total Billed Treatment Time: 33 Total Billed Treatment 1 visit, GT x2 units BRIDGER OSBORNE PTA Sep 05, 2019 10:08
--- NOTE | 2019-09-05 10:26 | Progress Note - Hospitalist ---
Subjective HPI/CC On Admission Date Seen by Provider: Sep 05, 2019 Time Seen by Provider: 09:30 CC: CHF with hyponatremia HPI: This is a 74yoWF clinic patient of [facility] known to me since last hospital stay she required [facility] admit 08/08/19 due to hyponatremia and severely debilitated status due to lung cancer with mets. Patient presented today to ER with hyponatremia on labs obtained by PCP and was found to have CHF requiring [facility] consultation services. Son updated on the plan for admit. Subjective/Events-last exam Pt doing a little better Up in chair Walked a bit with therapy Bowels moved already today Zosyn and Vancomycin maintained for pneumonia Elevated lactic acid persisted Sodium level 132 still on fluid restriction Review of Systems General: Fatigue Focused Exam Lactate Level 09/04/19 15:35: Lactic Acid Level 2.38*H 09/04/19 18:25: Lactic Acid Level 2.01*H 09/04/19 21:40: Lactic Acid Level 2.25*H Objective Exam Vital Signs Vital Signs Date Time Temp Pulse Resp B/P (MAP) Pulse Ox O2 Delivery O2 Flow Rate FiO2 09/05/19 16:14 36.1 76 18 148/67 (94) 97 Nasal Cannula 1.00 Capillary Refill : Less Than 3 SecondsLess Than 3 Seconds General Appearance: No Apparent Distress, WD/WN, Chronically ill Respiratory: Chest Non Tender, Lungs Clear, Normal Breath Sounds, No Accessory Muscle Use, No Respiratory Distress Cardiovascular: Regular Rate, Rhythm, No Edema, No Gallop, No JVD, No Murmur, Normal Peripheral Pulses Neurologic/Psychiatric: Alert, Disoriented Results/Procedures Lab Laboratory Tests 09/05/19 06:30 Patient resulted labs reviewed. Assessment/Plan Assessment and Plan Assess & Plan/Chief Complaint Assessment: Sepsis PNA facility acquired CHF new dx Altered mental status Severe hyponatremia of 122 on admission acute on chronic now 128 Adenocarcinoma lung cancer with widespread metastasis Mass on brain on CT scan Plan: Oncology consultation HLIVF IV abx Prognosis become more and more poor each day Fluid restrict IV Lasix Seizure precautions 4th floor PT OT Diagnosis/Problems Diagnosis/Problems (1) Sepsis Status: Acute (2) Pneumonia Status: Resolved Resolution Date/Time: 08/07/19 @ 13:14 (3) CHF (congestive heart failure) (4) Lung cancer (5) Hypertension (6) Hyponatremia syndrome Status: Acute (7) Metastatic lung cancer (metastasis from lung to other site) Status: Acute Qualifiers: Laterality: unspecified laterality Qualified Codes: C34.90 - Malignant neoplasm of unspecified part of unspecified bronchus or lung (8) Volume overload Status: Acute Qualifiers: Hypervolemia type: unspecified Qualified Codes: E87.70 - Fluid overload, unspecified (9) Hypokalemia Status: Acute (10) Hypothyroidism Status: Chronic (11) DVT prophylaxis Status: Acute (12) Altered mental state Status: Resolved Resolution Date/Time: 02/05/18 @ 20:33 (13) Adenocarcinoma, lung Status: Chronic Clinical Quality Measures DVT/VTE Risk/Contraindication: Risk Factor Score Per Nursin RFS Level Per Nursing on Admit: 4+=Very High MINA PARIKH DO Sep 05, 2019 10:26
--- NOTE | 2019-09-05 10:33 | Occ Therapy Progress Note ---
Therapy Progress Note Pt seen at 0840. Pt declined therapy at this time stating that stomach hurt then proceeded to fall asleep. Will check on pt later in am. TONE METZGER Sep 05, 2019 10:33
[2019-09-05 11:30] VITALS: BP 125/61
--- NOTE | 2019-09-05 11:37 | Occupational Ther Daily Note ---
OT Current Status-Daily Note Subjective Pt sleeping in recliner. Pt woke easily to name. Pt agrees to therapy. No c/o pain. C/o stomach, reported to nrsg. Mental Status/Objective Patient Orientation: Person, Unable to Assess Attachments: Bui Catheter, IV, Oxygen ADL-Treatment Therapy Code Descriptions/Definitions Functional [place] Measure: 0=Not Assessed/NA 4=Minimal Assistance 1=Total Assistance 5=Supervision or Setup 2=Maximal Assistance 6=Modified [place] 3=Moderate Assistance 7=Complete IndependenceSCALE: Activities may be completed with or without assistive devices. 5-Xyngdrywan-biwirgz completes the activity by him/herself with no assistance from a helper. 5-Set-up or Clean-up Assistance-helper sets up or cleans up; patient completes activity. [place] assists only prior to or following the activity. 4-Supervision or Touching Assistance-helper provides verbal cues and/or touching/steadying and/or contact guard assistance as patient completes activity. Assistance may be provided throughout the activity or intermittently. 3-Partial/Moderate Assistance-helper does LESS THAN HALF the effort. [place] lifts, holds or supports trunk or limbs, but provides less than half the effort. 2-Substantial/Maximal Assistance-helper does MORE THAN HALF the effort. [place] lifts or holds trunk or limbs and provides more than half the effort. 9-Jkvtrvwsu-yhdftl does ALL the effort. Patient does none of the effort to complete the activity. Or, the assistance of 2 or more helpers is required for the patient to complete the activity. If activity was not attempted, code reason: 7-Patient Refused. 9-Not Applicable-not attempted and the patient did not perform the activity before the current illness, exacerbation or injury. 10-Not Attempted due to Environmental Limitations-(lack of equipment, weather restraints, etc.). 88-Not Attempted due to Medical Conditions or Safety Concerns. Other Treatment Pt declines to complete bathing, oral care, strengthening or mobility. Pt does agree to complete washing face after setup. WFL for UE mobility and hand dexterity. Pt then requested water and was able to reach out and grasp water to bring to mouth. Set up to eat snack then pt able to use hands to eat sandwich. Pt declined any further treatment. After therapy, pt sitting in recliner with f eet elevated. Call light/phone in reach. All needs met in room. OT Longterm Goals Longterm Goals Time Frame: Sep 14, 2019 Eating (QC): 5 Oral Hygiene (QC): 5 Toileting Hygiene (QC): 3 Shower/Bathe Self (QC): 3 Upper Body Dressing (QC): 3 Lower Body Dressing (QC): 3 On/Off Footwear (QC): 3 1=Demonstrate adherence to instructed precautions during ADL tasks. 2=Patient will verbalize/demonstrate understanding of assistive devices/modifi cations for ADL. 3=Patient will improve strength/tolerance for activity to enable patient to perform ADL's. OT Education/Plan Problem List/Assessment Assessment: Decreased Activ Tolerance, Impaired Self-Care Skills Discharge Recommendations Plan/Recommendations: Continue POC Treatment Plan/Plan of Care Patient would benefit from OT for education, treatment and training to promote independence in ADL's, mobility, safety and/or upper extremity function for ADL's. Plan of Care: ADL Retraining, Functional Mobility, UE Funct Exercise/Act Treatment Duration: Sep 14, 2019 Frequency: 5 times per week Estimated Hrs Per Day: .25 hour per day Rehab Potential: Guarded Time/GCodes Start Time: 11:20 Stop Time: 11:28 Total Time Billed (hr/min): 8 Billed Treatment Time 1 visit-FA 1 (8 min) TONE METZGER Sep 05, 2019 11:37
[2019-09-05] MEDS: VANCOMYCIN 1 GM/NS 250 ML IVPB IV SCH ×2 (12:32)
[2019-09-05 16:14] VITALS: BP 148/67
--- NOTE | 2019-09-05 16:37 | Pulmonary Progress Note ---
Subjective Time Seen by a Provider: 16:33 Sepsis Event Evaluation Height, Weight, BMI Height: 5'4.00" Weight: 134lbs. 9.0oz. 61.418586kx; 27.34 BMI Method:Estimated Focused Exam Lactate Level 09/04/19 15:35: Lactic Acid Level 2.38*H 09/04/19 18:25: Lactic Acid Level 2.01*H 09/04/19 21:40: Lactic Acid Level 2.25*H Exam Exam Vital Signs Date Time Temp Pulse Resp B/P (MAP) Pulse Ox O2 Delivery O2 Flow Rate FiO2 09/05/19 16:14 36.1 76 18 148/67 (94) 97 Nasal Cannula 1.00 09/05/19 11:30 36.0 74 20 125/61 (82) 96 Nasal Cannula 1.00 09/05/19 09:00 Nasal Cannula 1.00 09/05/19 08:00 36.1 77 20 126/61 (82) 96 Nasal Cannula 1.00 09/05/19 06:44 79 09/05/19 04:00 36.9 80 20 128/89 (102) 95 Nasal Cannula 1.00 09/05/19 01:05 80 09/05/19 00:00 36.5 75 19 128/64 (85) 97 Nasal Cannula 1.00 09/04/19 21:00 Nasal Cannula 1.00 09/04/19 19:48 36.4 82 20 123/59 (80) 97 Nasal Cannula 1.00 09/04/19 19:00 81 I & O 09/05/19 07:00 Intake Total 1862 ml Output Total 2250 ml Balance -388 ml Height & Weight Height: 5'4.00" Weight: 134lbs. 9.0oz. 61.278687tv; 27.34 BMI Method:Estimated General Appearance: No Apparent Distress, WD/WN, Chronically ill HEENT: PERRL/EOMI, Pharynx Normal Neck: Non Tender, Supple Respiratory: Chest Non Tender, Lungs Clear, Normal Breath Sounds, No Accessory Muscle Use, No Respiratory Distress Cardiovascular: Regular Rate, Rhythm, No Edema, No Gallop, No JVD, No Murmur, Normal Peripheral Pulses Capillary Refill: Less Than 3 Seconds Extremity: Normal Range of Motion, Non Tender Neurologic/Psychiatric: Alert, Disoriented Skin: Warm/Dry, Pallor Results Lab Laboratory Tests 09/04/19 06:15 09/05/19 06:30 Assessment/Plan Assessment/Plan Pulmonary edema - Lasix -Monitor -She is requiring only 1 liter of oxygen PNA -PT is on Vanco and Zosyn -MRSA is negative -Ok from pulmonary standpoint to D/C vanco Hyponatremia with SIADH Acute CP with mild elevation in troponin -Cardiology following Metastatic adenocarcinoma of the lung, stage 4 Diastolic CHF EF 60-65% with RSVP 60 HX of small PE 08/16 -Hold Eliquis secondary to CT of head for now Brain lesion - CT head -- IMPRESSION: New tiny subcentimeter cortical foci of hyperintensity developed from the recent study may be small hemorrhagic contusions or the sequelae of metastasis. These exert no mass effect. There is no hydrocephalus. No evidence for elevated intracerebral pressures. Other findings stable from the recent comparison. Results discussed with the emergency room physician. KAYLIE HAMPTON DO Sep 05, 2019 16:37
[2019-09-06] VITALS: BP 125/60
[2019-09-06] MEDS: PIPERACILLIN/TAZOBACTAM (BULK) 4.5 GM in NS (IVPB) 100 ML IV SCH ×3 (02:15→16:59)
[2019-09-06 06:17] LABS: BASOPHILS % (AUTO) 0 % (0-10); EOSINOPHILS # (AUTO) 0.5 10^3/uL (0.0-0.3); EOSINOPHILS % (AUTO) 4 % (0-10); HEMATOCRIT 27 % (35-52); HEMOGLOBIN 8.7 G/DL (11.5-16.0); LYMPHOCYTES # (AUTO) 0.9 X 10^3 (1.0-4.0); LYMPHOCYTES % (AUTO) 8 % (12-44); MEAN CORPUSCULAR HEMOGLOBIN 30 PG (25-34); MEAN CORPUSCULAR HGB CONC 32 G/DL (32-36); MEAN CORPUSCULAR VOLUME 93 FL (80-99); MEAN PLATELET VOLUME 9.5 FL (7.4-10.4); MONOCYTES % (AUTO) 9 % (0-12); NEUTROPHILS # (AUTO) 8.4 X 10^3 (1.8-7.8); NEUTROPHILS % (AUTO) 78 % (42-75); PLATELET COUNT 113 10^3/uL (130-400); RED CELL DISTRIBUTION WIDTH 14.3 % (10.0-14.5); WHITE BLOOD COUNT 10.7 10^3/uL (4.3-11.0)
[2019-09-06 06:35] LABS: ALANINE AMINOTRANSFERASE 39 U/L (0-55); ALBUMIN 3.6 GM/DL (3.2-4.5); ALKALINE PHOSPHATASE 292 U/L (40-136); BILIRUBIN,TOTAL 0.7 MG/DL (0.1-1.0); BUN/CREATININE RATIO 22; CALCIUM 8.9 MG/DL (8.5-10.1); CARBON DIOXIDE 29 MMOL/L (21-32); CHLORIDE 93 MMOL/L (98-107); CREATININE SERUM 0.83 MG/DL (0.60-1.30); GFR ESTIMATED > 60; GLUCOSE 91 MG/DL (70-105); POTASSIUM 3.2 MMOL/L (3.6-5.0); SODIUM 132 MMOL/L (135-145); TOTAL PROTEIN 6.6 GM/DL (6.4-8.2)
[2019-09-06 07:56] VITALS: BP 130/59
[2019-09-06] MEDS: CALCIUM CARBONATE 500 MG (TUMS) TAB.CHEW PO SCH ×3 (08:36→20:55)
[2019-09-06] MEDS: PANTOPRAZOLE 40 MG (PROTONIX) TAB PO SCH (08:36)
[2019-09-06] MEDS: SENNA W/DOCUSATE (SENOKOT S) TABLET PO SCH ×2 (08:36→20:55)
[2019-09-06] MEDS ORDERED: LORazepam 0.5 MG (ATIVAN) TABLET PO PRN (09:45)
--- NOTE | 2019-09-06 09:54 | Physical Therapy Daily Note ---
PT Daily Note-Current Subjective Patient is in recliner and agrees to PT. Mental Status Attachments: Oxygen, Bui Catheter Transfers SCALE: Activities may be completed with or without assistive devices. 3-Hiqmwowyvb-dsdifnx completes the activity by him/herself with no assistance f rom a helper. 5-Set-up or Clean-up Assistance-helper sets up or cleans up; patient completes activity. [place] assists only prior to or following the activity. 4-Supervision or Touching Assistance-helper provides verbal cues and/or touching/steadying and/or contact guard assistance as patient completes activity. Assistance may be provided throughout the activity or intermittently. 3-Partial/Moderate Assistance-helper does LESS THAN HALF the effort. [place] lifts, holds or supports trunk or limbs, but provides less than half the effort. 2-Substantial/Maximal Assistance-helper does MORE THAN HALF the effort. [place] lifts or holds trunk or limbs and provides more than half the effort. 6-[place]dy[place]-fxzgbc does ALL the effort. Patient does none of the effort to complete the activity. Or, the assistance of 2 or more helpers is required for the patient to complete the activity. If activity was not attempted, code reason: 7-Patient Refused. 9-Not Applicable-not attempted and the patient did not perform the activity before the current illness, exacerbation or injury. 10-Not Attempted due to Environmental Limitations-(lack of equipment, weather restraints, etc.). 88-Not Attempted due to Medical Conditions or Safety Concerns. Sit to Stand (QC): 4 Gait Training Does the Patient Walk?: Yes Distance: 150' Walk 10 feet (QC): 4 Walk 50 ft with 2 Turns(QC): 4 Walk 150 ft (QC): 4 Gait Assistive Device: FWW flexed knee posture with gait training. Assessment Patient fatigues with minimal activity. O2 in place during treatment. Patient appears very lethargic and listless. Patient returned to recliner with needs met. PT Sailing Master Goals Sailing Master Goals PT Sailing Master Goals Time Frame: Sep 15, 2019 Roll Left & Right (QC): 5 Sit to Lying (QC): 5 Lying-Sitting on Side/Bed(QC): 5 Sit to Stand (QC): 5 Chair/Orw-bq-Hbglt Xfer(QC): 5 Toilet Transfer (QC): 5 Does the Patient Walk: Yes Walk 10 feet (QC): 5 Walk 50ft with 2 Turns (QC): 5 Walk 150 ft (QC): 5 PT Plan Treatment/Plan Treatment Plan: Continue Plan of Care Treatment Plan: Bed Mobility, Education, Functional Activity Daniel, Functional Strength, Gait, Safety, Therapeutic Exercise, Transfers Treatment Duration: Sep 15, 2019 Frequency: 5 times per week Estimated Hrs Per Day: .25 hour per day Patient and/or Family Agrees t: Yes Time/GCodes Time In: 902 Time Out: 919 Total Billed Treatment Time: 17 Total Billed Treatment 1 visit GT 17 min DASHA LUU PT Sep 06, 2019 09:54
--- NOTE | 2019-09-06 09:55 | Cardiology Progress Note ---
Subjective Date Seen by Provider: Sep 06, 2019 Time Seen by Provider: 08:20 Subjective/Events-last exam Patient sitting up in chair, son reports episode of confusion throughout the night for the past several nights. C/o fatigue. Denies any chest pain or dyspnea. Review of Systems General: No Chills, No Night Sweats, No Fatigue, No Malaise, No Appetite, No Other HEENT: No Head Aches, No Visual Changes, No Eye Pain, No Ear Pain, No Dysphasia, No Sinus Congestion, No Post Nasal Drip, No Sore Throat, No Other Pulmonary: No Dyspnea, No Cough, No Pleuritic Chest Pain, No Other Cardiovascular: No: Chest Pain, Palpitations, Orthopnea, Paroxysmal Noc. Dyspnea, Edema, Lt Headedness, Other Focused Exam Lactate Level 09/04/19 15:35: Lactic Acid Level 2.38*H 09/04/19 18:25: Lactic Acid Level 2.01*H 09/04/19 21:40: Lactic Acid Level 2.25*H Objective-Cardiology Exam Last Set of Vital Signs Vital Signs 09/06/19 09/06/19 07:56 08:45 Temp 36.6 Pulse 88 Resp 20 B/P (MAP) 130/59 (82) Pulse Ox 93 O2 Delivery Nasal Cannula O2 Flow Rate 1.00 Capillary Refill : Less Than 3 SecondsLess Than 3 Seconds I&O Intake and Output 09/06/19 00:00 Intake Total 2175 ml Output Total 1200 ml Balance 975 ml Intake Oral 1055 ml IV Total 1120 ml Output Urine Total 1200 ml # Bowel Movements 2 General: Alert, Oriented X3, Cooperative HEENT: Atraumatic Neck: Supple, No JVD, No Thyromegaly Lungs: Normal Air Movement, Other ([place]) Heart: Regular Rate, Normal S1, Normal S2, No Murmurs Abdomen: Normal Bowel Sounds, Soft, No Tenderness, No Hepatosplenomegaly, No Masses Extremities: No Clubbing, No Cyanosis, No Edema, Normal Pulses, No Tenderness/Swelling Skin: No Rashes, No Breakdown, No Significant Lesion Neuro: Other (Generalized fatigue and lethargy) Psych/Mental Status: Mental Status NL, Mood NL Results Lab Laboratory Tests 09/06/19 05:55 A/P-Cardiology Admission Diagnosis Hyponatremia Metastatic lung cancer Coronary artery disease Debility Assessment/Plan Hyponatremia, probably SIADH, improving slowly, managed by primary care team Confusion, mainly at night, patients son reports patient agitated in the even ings. I will order Ativan 0.5mg PRN to use as needed for anxiety/agitation. Questionable pneumonia and sepsis, receiving antibiotic and managed by primary care team Generalized weakness, loss of energy. Small intracranial lesion, questionable small bleed versus metastases. Currently anticoagulation is on hold, I will restart Eliquis, especially with the recent pulmonary embolism, I will repeating CT of the head Slight elevation in troponin, current conservative management CTA of the chest from 07-29-2019 showed - Small burden of pulmonary emboli to the subsegmental branches of the right lung. No evidence of right heart strain or pulmonary infarct. Findings suggestive of disease progression with increase in size and number of lung nodules and increase in size of the metastatic lesions throughout the liver. Coronary artery disease, status post cardiac catheterization on October 16, 2014 which showed mild disease nonobstructive disease with normal LV function, severe pulmonary hypertension Metastatic adenocarcinoma of the lung, stage IV, followed and managed by Dr. Wick History of DVT in 1975 Previously on OAC with Eliquis that is currently being held by the [facility] History of Graves' disease, followed and managed by primary care physician Patient was seen and evaluated with May, examination performed, management plan was discussed, agree with the current scribed note, I made few changes to the note using Italic font Patient is sitting in a chair, comfortable We'll reevaluate CT of the head planning to restart oral anticoagulation Use Pedialyte, monitor electrolytes Continue with physical therapy Try some Ativan in the evening due to increased agitation and confusion Clinical Quality Measures DVT/VTE Risk/Contraindication: Risk Factor Score Per Nursin RFS Level Per Nursing on Admit: 4+=Very High MAY AUGUSTIN Sep 06, 2019 09:55 CHANEL TOMLINSON MD Sep 06, 2019 12:03
--- NOTE | 2019-09-06 10:29 | Progress Note - Hospitalist ---
Subjective HPI/CC On Admission Date Seen by Provider: Sep 06, 2019 Time Seen by Provider: 09:30 CC: CHF with hyponatremia HPI: This is a 74yoWF clinic patient of [facility] known to me since last hospital stay she required [facility] admit 08/08/19 due to hyponatremia and severely debilitated status due to lung cancer with mets. Patient presented today to ER with hyponatremia on labs obtained by PCP and was found to have CHF requiring [facility] consultation services. Son updated on the plan for admit. Subjective/Events-last exam Pt doing okay Sitting up in chair Will discontinue catheter Sodium 132 [facility] Overall poor prognosis Reviewed records, apparently she has had lung cancer for the past five years and no other treatment available and she is progressing and no other option available Review of Systems General: Fatigue Pulmonary: Cough Focused Exam Lactate Level 09/04/19 15:35: Lactic Acid Level 2.38*H 09/04/19 18:25: Lactic Acid Level 2.01*H 09/04/19 21:40: Lactic Acid Level 2.25*H Objective Exam Vital Signs Vital Signs Date Time Temp Pulse Resp B/P (MAP) Pulse Ox O2 Delivery O2 Flow Rate FiO2 09/06/19 17:14 Nasal Cannula 1.00 09/06/19 16:00 37.0 89 20 151/66 (94) 92 Capillary Refill : Less Than 3 SecondsLess Than 3 Seconds General Appearance: No Apparent Distress, WD/WN, Chronically ill Respiratory: Chest Non Tender, Lungs Clear, Normal Breath Sounds, No Accessory Muscle Use, No Respiratory Distress Cardiovascular: Regular Rate, Rhythm, No Edema, No Gallop, No JVD, No Murmur, Normal Peripheral Pulses Neurologic/Psychiatric: Alert, Oriented x3, No Motor/Sensory Deficits, Normal Mood/Affect Results/Procedures Lab Laboratory Tests 09/06/19 05:55 Patient resulted labs reviewed. Assessment/Plan Assessment and Plan Assess & Plan/Chief Complaint Assessment: Sepsis PNA facility acquired CHF new dx Altered mental status Severe hyponatremia of 122 on admission acute on chronic now 128 Adenocarcinoma lung cancer with widespread metastasis Mass on brain on CT scan Plan: Oncology consultation HLIVF IV abx Prognosis become more and more poor each day Fluid restrict IV Lasix Seizure precautions DC tomorrow back to NH PT OT Diagnosis/Problems Diagnosis/Problems (1) Sepsis Status: Acute (2) Pneumonia Status: Resolved Resolution Date/Time: 08/07/19 @ 13:14 (3) CHF (congestive heart failure) (4) Lung cancer (5) Hypertension (6) Hyponatremia syndrome Status: Acute (7) Metastatic lung cancer (metastasis from lung to other site) Status: Acute Qualifiers: Laterality: unspecified laterality Qualified Codes: C34.90 - Malignant neoplasm of unspecified part of unspecified bronchus or lung (8) Volume overload Status: Acute Qualifiers: Hypervolemia type: unspecified Qualified Codes: E87.70 - Fluid overload, unspecified (9) Hypokalemia Status: Acute (10) Hypothyroidism Status: Chronic (11) DVT prophylaxis Status: Acute (12) Altered mental state Status: Resolved Resolution Date/Time: 02/05/18 @ 20:33 (13) Adenocarcinoma, lung Status: Chronic Clinical Quality Measures DVT/VTE Risk/Contraindication: Risk Factor Score Per Nursin RFS Level Per Nursing on Admit: 4+=Very High MINA PARIKH DO Sep 06, 2019 10:29
[2019-09-06] MEDS: APIXABAN 2.5 MG (ELIQUIS) TABLET PO SCH ×2 (10:55→20:55)
--- NOTE | 2019-09-06 11:14 | Occupational Ther Daily Note ---
OT Current Status-Daily Note Subjective Pt alert, standing with nrsg. No c/o pain at this time. Mental Status/Objective Patient Orientation: Person, Unable to Assess (language barrier) Attachments: Bui Catheter, IV, Oxygen ADL-Treatment Per nrsg, pt required assistance to cleanse self after toileting. Pt did assist with hiking pants over hips. Min A to transfer onto/off of BSC. Mod A to lift feet into bed then assist x2 to scoot pt up in bed. Assist for pt to roll toward L side to adjust clothing while in supine. After therapy, pt lying in bed with call light/phone in reach. All needs met in room. Therapy Code Descriptions/Definitions Functional [place] Measure: 0=Not Assessed/NA 4=Minimal Assistance 1=Total Assistance 5=Supervision or Setup 2=Maximal Assistance 6=Modified [place] 3=Moderate Assistance 7=Complete IndependenceSCALE: Activities may be completed with or without assistive devices. 2-Jcbglwmmdr-gklmbmt completes the activity by him/herself with no assistance from a helper. 5-Set-up or Clean-up Assistance-helper sets up or cleans up; patient completes activity. [place] assists only prior to or following the activity. 4-Supervision or Touching Assistance-helper provides verbal cues and/or touching/steadying and/or contact guard assistance as patient completes activity. Assistance may be provided throughout the activity or intermittently. 3-Partial/Moderate Assistance-helper does LESS THAN HALF the effort. [place] lifts, holds or supports trunk or limbs, but provides less than half the effort. 2-Substantial/Maximal Assistance-helper does MORE THAN HALF the effort. [place] lifts or holds trunk or limbs and provides more than half the effort. 9-Xbeeyaraz-sdxtmf does ALL the effort. Patient does none of the effort to complete the activity. Or, the assistance of 2 or more helpers is required for the patient to complete the activity. If activity was not attempted, code reason: 7-Patient Refused. 9-Not Applicable-not attempted and the patient did not perform the activity before the current illness, exacerbation or injury. 10-Not Attempted due to Environmental Limitations-(lack of equipment, weather restraints, etc.). 88-Not Attempted due to Medical Conditions or Safety Concerns. Toileting Hygiene (QC): 2 Toilet Transfer (QC): 3 OT Associate Software Engineer Goals Long-Term Goals Time Frame: Sep 14, 2019 Eating (QC): 5 Oral Hygiene (QC): 5 Toileting Hygiene (QC): 3 Shower/Bathe Self (QC): 3 Upper Body Dressing (QC): 3 Lower Body Dressing (QC): 3 On/Off Footwear (QC): 3 1=Demonstrate adherence to instructed precautions during ADL tasks. 2=Patient will verbalize/demonstrate understanding of assistive devices/modifications for ADL. 3=Patient will improve strength/tolerance for activity to enable patient to perform ADL's. OT Education/Plan Problem List/Assessment Assessment: Decreased Activ Tolerance, Decreased UE Strength, Impaired Self- Care Skills Discharge Recommendations Plan/Recommendations: Continue POC Treatment Plan/Plan of Care Patient would benefit from OT for education, treatment and training to promote independence in ADL's, mobility, safety and/or upper extremity function for ADL's. Plan of Care: ADL Retraining, Functional Mobility, UE Funct Exercise/Act Treatment Duration: Sep 14, 2019 Frequency: 5 times per week Estimated Hrs Per Day: .25 hour per day Rehab Potential: Guarded Time/GCodes Start Time: 10:31 Stop Time: 10:41 Total Time Billed (hr/min): 10 Billed Treatment Time 1 visit-ADL 1 (10 min) TONE METZGER Sep 06, 2019 11:14
[2019-09-06] MEDS: VANCOMYCIN 1 GM/NS 250 ML IVPB IV SCH ×2 (11:21)
--- NOTE | 2019-09-06 12:50 | Diagnostic Imaging Report ---
INDICATION: Altered mental status. TECHNIQUE: Routine non contrast-enhanced axial images were obtained from the skull base to the vertex. Auto Exposure Controls were utilized during the CT exam to meet ALARA standards for radiation dose reduction COMPARISON: 08/29/2019 and 08/03/2019. FINDINGS: Since the previous exams, there has been interval progression of abnormal hyperdense appearance to the anterior margins of the vermis. Area in question measures 1.3 x 1 cm. There is also a punctate area of hyperdensity within the superior margins of the left cerebellar hemisphere measuring approximately 5 mm (image 11, series 2). There is no significant mass effect or midline shift related to these areas. There is otherwise background age-related parenchymal volume loss. Ventricles and cortical sulci are diffusely prominent. There are scattered and confluent areas of decreased attenuation within the periventricular and subcortical deep white matter consistent with chronic small vessel ischemic changes. There is no new large area of loss of martinez-white matter junction differentiation to suggest acute territorial infarct. Evaluation of the bony calvarium demonstrates lucency superiorly on the left that measures 2.5 x 2.5 cm. This is new when compared to 02/04/2018 consistent with new osteolytic process. Visualized portions of the paranasal sinuses and mastoid air cells are clear. IMPRESSION: 1. Interval progression of hyperdensities of the vermis and left cerebellar hemisphere strongly concerning for metastatic disease. Correlation with MRI is recommended. 2. No significant mass effect or midline shift related to the above. 3. No evidence of acute infarct or intracranial hemorrhage. 4. Area of osteolysis involving the superior calvarium on the left consistent with metastatic disease as well. Dictated by: Dictated on workstation # [id number]
[2019-09-06 16:00] VITALS: BP 151/66
[2019-09-06] MEDS: ACETAMINOPHEN 500 MG TAB (TYLENOL) PO PRN (20:56)
[2019-09-06 23:30] VITALS: BP 132/57
--- NOTE | 2019-09-07 00:40 | NUR ---
assumed patient care at this time. Report received from ERLINDA Sanchez. Pt resting with eyes closed. Will continue to monitor
[2019-09-07] MEDS: PIPERACILLIN/TAZOBACTAM (BULK) 4.5 GM in NS (IVPB) 100 ML IV SCH ×2 (00:53→09:26)
[2019-09-07 05:38] LABS: BASOPHILS % (AUTO) 0 % (0-10); EOSINOPHILS # (AUTO) 0.5 10^3/uL (0.0-0.3); EOSINOPHILS % (AUTO) 4 % (0-10); HEMATOCRIT 27 % (35-52); HEMOGLOBIN 8.8 G/DL (11.5-16.0); LYMPHOCYTES % (AUTO) 9 % (12-44); MEAN CORPUSCULAR HEMOGLOBIN 30 PG (25-34); MEAN CORPUSCULAR HGB CONC 32 G/DL (32-36); MEAN CORPUSCULAR VOLUME 93 FL (80-99); MEAN PLATELET VOLUME 9.5 FL (7.4-10.4); MONOCYTES # (AUTO) 0.9 X 10^3 (0.0-1.0); MONOCYTES % (AUTO) 8 % (0-12); NEUTROPHILS % (AUTO) 79 % (42-75); PLATELET COUNT 121 10^3/uL (130-400); RED CELL DISTRIBUTION WIDTH 14.6 % (10.0-14.5); WHITE BLOOD COUNT 11.4 10^3/uL (4.3-11.0)
[2019-09-07 05:51] LABS: ALANINE AMINOTRANSFERASE 37 U/L (0-55); ALBUMIN 3.6 GM/DL (3.2-4.5); ALKALINE PHOSPHATASE 295 U/L (40-136); BILIRUBIN,TOTAL 0.8 MG/DL (0.1-1.0); BUN/CREATININE RATIO 19; CARBON DIOXIDE 28 MMOL/L (21-32); CHLORIDE 97 MMOL/L (98-107); CREATININE SERUM 0.67 MG/DL (0.60-1.30); GFR ESTIMATED > 60; GLUCOSE 87 MG/DL (70-105); POTASSIUM 3.3 MMOL/L (3.6-5.0); SODIUM 136 MMOL/L (135-145); TOTAL PROTEIN 6.6 GM/DL (6.4-8.2)
[2019-09-07 08:00] VITALS: BP 157/87
[2019-09-07] MEDS: CALCIUM CARBONATE 500 MG (TUMS) TAB.CHEW PO SCH (09:26)
[2019-09-07] MEDS: APIXABAN 2.5 MG (ELIQUIS) TABLET PO SCH (09:26)
[2019-09-07] MEDS: PANTOPRAZOLE 40 MG (PROTONIX) TAB PO SCH (09:26)
[2019-09-07] MEDS: SENNA W/DOCUSATE (SENOKOT S) TABLET PO SCH (09:26)
--- NOTE | 2019-09-07 09:46 | NUR ---
Pt is a resident of [facility]. Her also resides there.Pt's son,Tenzin is pt's DPOA and actively involved in her care and treatment.
[2019-09-07] MEDS ORDERED: Lorazepam PO (10:30)
[2019-09-07] MEDS ORDERED: FURO-124 PO (10:30)
[2019-09-07] MEDS ORDERED: CEFD300C3 PO (10:30)
--- NOTE | 2019-09-07 10:31 | Discharge Inst-Skilled Nursing ---
Discharge Inst-Skilled NF Reconcile Patient Problems Problems Reviewed?: Yes Chief Complaint CC: CHF with hyponatremia HPI: This is a 74yoWF clinic patient of [facility] known to me since last hospital stay she required [facility] admit 08/08/19 due to hyponatremia and severely debilitated status due to lung cancer with mets. Patient presented today to ER with hyponatremia on labs obtained by PCP and was found to have CHF requiring [facility] and [facility] consultation services. Son updated on the plan for admit. Patient Instructions Patient Problems: Lung cancer x 5 yrs now end stage Hypontremia s/p sepsis with PNA Volume overload Goal: [place], improve quality of life Consult/Follow Up/Orders Follow Up Appt.: [facility] rounds Skilled NF Admit to: [facility] Certification ([facility]) I certify that SNF services are required to be given on an inpatient basis because of the above named patient's need for usp care on a continuing basis for the conditions(s) for which he/she was receiving inpatient hospital services prior to his/her transfer to the [facility]. Long Term Facility Order: Nursing Services, Registered Travel Nurse-Evaluate & Treat, Physical Therapy-Evaluate & Treat, Speech Language-Evaluate & Treat Oxygen Delivery Method: Nasal Cannula Discharge Diet: Other Diet (fluid restriction 1500cc/day) Resuscitation Status: Do Not Resuscitate New & Resume Previous Orders New Medications: Cefdinir (Cefdinir) 300 Mg Capsule 300 MG PO BID for 3 Days, CAP Furosemide (Lasix) 40 Mg Tablet 40 MG PO DAILY for 30 Days, TAB [Lorazepam] () 0.5 MG TABLET 0.5 MG PO Q8H PRN for ANXIETY, #15 TAB Continued Medications: Acetaminophen (Tylenol Extra Strength) 500 Mg Tablet 1000 MG PO TID, TAB Albuterol Sulfate (Proair Hfa) 1 Puff Puff 2 PUFF INH Q4H PRN for SHORTNESS OF BREATH, INHALER Albuterol Sulfate (Albuterol Sulfate) 2.5 Mg/0.5 Ml Vial.neb 2.5 MG INH Q6H PRN for SHORTNESS OF BREATH, EACH Apixaban (Eliquis) 2.5 Mg Tablet 2.5 MG PO BID, TAB Guaifenesin (Mucus Relief) 600 Mg Tab.er.12h 600 MG PO BID, TAB Levothyroxine Sodium (Levothyroxine Sodium) 88 Mcg Tablet 88 MCG PO DAILY, TAB Loratadine (Claritin) 10 Mg Tablet 10 MG PO DAILY, TAB Mag Hydrox/Al Hydrox/Simeth (Mylanta Suspension) 30 Ml Oral.susp 30 ML PO Q4H PRN for INDIGESTION, ML Omeprazole (Omeprazole) 20 Mg Capsule.dr 20 MG PO BID, CAP Polyethylene Glycol 3350 (Miralax) 17 Gm Powd.pack 17 GM PO DAILY, EACH Potassium Chloride (Potassium Chloride) 10 Meq Tab.er.prt 10 MEQ PO BID, TAB Sodium Chloride (Sodium Chloride) 1 Gm Tab 3 GM PO TID, TAB FILLED ON 08-31-2019 #36- HOWEVER THE SCRIPT WAS FOR #90 (PHARMACY DID NOT HAVE IT ALL IN STOCK) THIS WAS FOR A 10 DAY THERAPY Solifenacin Succinate (Solifenacin Succinate) 10 Mg Tablet 10 MG PO HS Timolol Maleate (Timolol Maleate 0.5%) 5 Ml Drops 1 DROP OD BID, EA Discontinued Medications: Furosemide (Furosemide) 20 Mg Tablet 20 MG PO MoWeFr, TAB Nitrofurantoin Monohyd/M-Cryst (Nitrofurantoin [place]-Mcr 100 mg) 100 Mg Capsule 1 CAP PO BID, CAP FILLED 08-31-2019 #10/ 5 DAY SUPPLY Christi Mccollum Sep 07, 2019 10:30 CHRISTI MCCOLLUM DO Sep 07, 2019 10:31
--- NOTE | 2019-09-07 10:32 | Discharge Summary ---
Discharge Summary Hospital Course Was the Problem List Reviewed?: Yes Problems/Dx: (1) Sepsis Status: Acute (2) Pneumonia Status: Resolved (3) CHF (congestive heart failure) (4) Lung cancer (5) Hypertension (6) Hyponatremia syndrome Status: Acute (7) Metastatic lung cancer (metastasis from lung to other site) Status: Acute Qualifiers: Qualified Codes: C34.90 - Malignant neoplasm of unspecified part of unspecified bronchus or lung (8) Volume overload Status: Acute Qualifiers: Qualified Codes: E87.70 - Fluid overload, unspecified (9) Hypokalemia Status: Acute (10) Hypothyroidism Status: Chronic (11) DVT prophylaxis Status: Acute (12) Altered mental state Status: Resolved (13) Adenocarcinoma, lung Status: Chronic Hospital Course Date of Admission: Sep 01, 2019 at 13:22 Admission Diagnosis : Family Physician/Provider: Shavon Joseph Aprn Date of Discharge: 09/07/19 Discharge Diagnosis: Volume overload, edema, sepsis, PNA, hyponatremia, lung cancer with widespread mets including brain, AMS Hospital Course: Hospital course: Pt had a lengthy hospital course for seven days after she was admitted for CHF and hyponatremia, fluid restriction, IV diuresis initiated along with cardiology management, she did have an episode of sepsis that was assessed to be from pneumonia. Pt was placed on broad-spectrum antibiotics and gentle IV fluids for lactic acidosis but did not ever have any hypotension. Overall she returned back to her baseline. Sodium level 136, consultation from oncology stated that there were no other treatment options for her because she had been diagnosed five years ago with a lung cancer and overall recommended skilled care and supportive care. Labs and Pending Lab Test: Laboratory Tests 09/06/19 16:07: Glucometer 124H 09/07/19 05:15: White Blood Count 11.4H, Red Blood Count 2.96L, Hemoglobin 8.8L, Hematocrit 27L, Mean Corpuscular Volume 93, Mean Corpuscular Hemoglobin 30, Mean Corpuscular Hemoglobin Concent 32, Red Cell Distribution Width 14.6H, Platelet Count 121L, Mean Platelet Volume 9.5, Neutrophils (%) (Auto) 79H, Lymphocytes (%) (Auto) 9L, Monocytes (%) (Auto) 8, Eosinophils (%) (Auto) 4, Basophils (%) (Auto) 0, Neutrophils # (Auto) 9.0H, Lymphocytes # (Auto) 1.0, Monocytes # (Auto) 0.9, Eosinophils # (Auto) 0.5H, Basophils # (Auto) 0.0, Sodium Level 136, Potassium Level 3.3L, Chloride Level 97L, Carbon Dioxide Level 28, Anion Gap 11, Blood Urea Nitrogen 13, Creatinine 0.67, Estimat Glomerular Filtration Rate > 60, BUN/Creatinine Ratio 19, Glucose Level 87, Calcium Level 9.0, Corrected Calcium 9.3, Total Bilirubin 0.8, Aspartate Amino Transf (AST/SGOT) 53H, Alanine Aminotransferase (ALT/SGPT) 37, Alkaline Phosphatase 295H, Total Protein 6.6, Albumin 3.6 Microbiology 09/04/19 Urine Culture - Final, Complete NO GROWTH 09/04/19 Influenza Types A,B Antigen (DEMI) - Final, Complete 09/04/19 Blood Culture - Preliminary, Resulted No growth Home Meds Active Cefdinir 300 Mg Capsule 300 Mg PO BID 3 Days Lasix (Furosemide) 40 Mg Tablet 40 Mg PO DAILY 30 Days [Lorazepam] 0.5 MG Tablet 0.5 Mg PO Q8H PRN Reported Sodium Chloride 1 Gm Tab 3 Gm PO TID FILLED ON 08-31-2019 #36- HOWEVER THE SCRIPT WAS FOR #90 (PHARMACY DID NOT HAVE IT ALL IN STOCK) THIS WAS FOR A 10 DAY THERAPY Nitrofurantoin [place]-Mcr 100 mg (Nitrofurantoin Monohyd/M-Cryst) 100 Mg Capsule 1 Cap PO BID FILLED 08-31-2019 #10/ 5 DAY SUPPLY Mylanta Suspension (Al Hydrox/Mg Hydrox/Simethicone) 30 Ml Oral.susp 30 Ml PO Q4H PRN Miralax (Polyethylene Glycol 3350) 17 Gm Powd.pack 17 Gm PO DAILY Solifenacin Succinate 10 Mg Tablet 10 Mg PO HS Eliquis (Apixaban) 2.5 Mg Tablet 2.5 Mg PO BID Mucus Relief (Guaifenesin) 600 Mg Tab.er.12h 600 Mg PO BID Albuterol Sulfate 2.5 Mg/0.5 Ml Vial.neb 2.5 Mg INH Q6H PRN Claritin (Loratadine) 10 Mg Tablet 10 Mg PO DAILY Furosemide 20 Mg Tablet 20 Mg PO MOWEFR Levothyroxine Sodium 88 Mcg Tablet 88 Mcg PO DAILY Proair Hfa (Albuterol Sulfate) 1 Puff Puff 2 Puff INH Q4H PRN Potassium Chloride 10 Meq Tab.er.prt 10 Meq PO BID Tylenol Extra Strength (Acetaminophen) 500 Mg Tablet 1,000 Mg PO TID Omeprazole 20 Mg Capsule.dr 20 Mg PO BID Timolol Maleate 0.5% (Timolol Maleate) 5 Ml Drops 1 Drop OD BID Assessment/Pt Instructions [facility] on [facility] rounds Discharge Planning: <30 minutes discharge planning Discharge Instructions Discharge Diet: No Restrictions, Other Diet (fluid restriction 1500cc/day) Activity as Tolerated: Yes Discharge Physical Examination Vital Signs Vital Signs Date Time Temp Pulse Resp B/P (MAP) Pulse Ox O2 Delivery O2 Flow Rate FiO2 09/07/19 08:00 36.7 79 18 157/87 (110) 90 Nasal Cannula 1.00 General Appearance: No Apparent Distress, WD/WN, Chronically ill Respiratory: Lungs Clear Cardiovascular: Regular Rate, Rhythm Neurologic/Psychiatric: Alert, Oriented x3 Allergies: Coded Allergies: carboplatin (Verified Allergy, Severe, 07/10/18) REACTION TO CARBOPLATIN Sulfa (Sulfonamide Antibiotics) (Verified Allergy, Mild, 02/04/18) Discharge Summary Date of Admission Sep 01, 2019 at 13:22 Date of Discharge Discharge Date: Sep 07, 2019 Admission Diagnosis Assessment: CHF new dx Altered mental status Severe hyponatremia of 122 on admission acute on chronic Adenocarcinoma lung cancer with widespread metastasis Mass on brain on CT scan Plan: Oncology consultation Fluid restrict IV Lasix Seizure precautions Discharge Diagnosis Assessment: Sepsis PNA facility acquired CHF new dx Altered mental status Severe hyponatremia of 122 on admission acute on chronic now 128 Adenocarcinoma lung cancer with widespread metastasis Mass on brain on CT scan Plan: Oncology consultation HLIVF IV abx Prognosis become more and more poor each day Fluid restrict IV Lasix Seizure precautions DC tomorrow back to [facility] PT OT (1) Sepsis Status: Acute (2) Pneumonia Status: Resolved (3) CHF (congestive heart failure) (4) Lung cancer (5) Hypertension (6) Hyponatremia syndrome Status: Acute (7) Metastatic lung cancer (metastasis from lung to other site) Status: Acute Qualifiers: Qualified Codes: C34.90 - Malignant neoplasm of unspecified part of unspecified bronchus or lung (8) Volume overload Status: Acute Qualifiers: Qualified Codes: E87.70 - Fluid overload, unspecified (9) Hypokalemia Status: Acute (10) Hypothyroidism Status: Chronic (11) DVT prophylaxis Status: Acute (12) Altered mental state Status: Resolved (13) Adenocarcinoma, lung Status: Chronic Clinical Quality Measures DVT/VTE Risk/Contraindication: Risk Factor Score Per Nursin RFS Level Per Nursing on Admit: 4+=Very High MINA PARIKH DO Sep 07, 2019 10:31
--- NOTE | 2019-09-07 11:30 | Occ Therapy Progress Note ---
Therapy Progress Note Pt refused any treatment from OT services. Pt to discharge to NH today. TONE METZGER Sep 07, 2019 11:30
--- NOTE | 2019-09-07 13:17 | Cardiology Progress Note ---
Subjective Date Seen by Provider: Sep 07, 2019 Time Seen by Provider: 13:16 Subjective/Events-last exam Patient is eating in chair, feeling better. Review of Systems General: No Chills, No Night Sweats; Fatigue, Malaise; No Appetite, No Other HEENT: No Head Aches, No Visual Changes, No Eye Pain, No Ear Pain, No Dysphasia, No Sinus Congestion, No Post Nasal Drip, No Sore Throat, No Other Pulmonary: No Dyspnea, No Cough, No Pleuritic Chest Pain, No Other Cardiovascular: No: Chest Pain, Palpitations, Orthopnea, Paroxysmal Noc. Dyspnea, Edema, Lt Headedness, Other Focused Exam Lactate Level 09/04/19 15:35: Lactic Acid Level 2.38*H 09/04/19 18:25: Lactic Acid Level 2.01*H 09/04/19 21:40: Lactic Acid Level 2.25*H Objective-Cardiology Exam Last Set of Vital Signs Vital Signs 09/07/19 08:00 Temp 36.7 Pulse 79 Resp 18 B/P (MAP) 157/87 (110) Pulse Ox 90 O2 Delivery Nasal Cannula O2 Flow Rate 1.00 Capillary Refill : Less Than 3 SecondsLess Than 3 Seconds I&O Intake and Output 09/07/19 00:00 Intake Total 1135 ml Output Total 1300 ml Balance -165 ml Intake Oral 1135 ml Output Urine Total 1000 ml Post Void Residual 300 ml # Voids 4 # Bowel Movements 3 General: Alert, Oriented X3, Cooperative HEENT: Atraumatic Neck: Supple, No JVD, No Thyromegaly Lungs: Normal Air Movement, Other ([place]) Heart: Regular Rate, Normal S1, Normal S2, No Murmurs Abdomen: Normal Bowel Sounds, Soft, No Tenderness, No Hepatosplenomegaly, No Masses Extremities: No Clubbing, No Cyanosis, No Edema, Normal Pulses, No Tenderness/Swelling Skin: No Rashes, No Breakdown, No Significant Lesion Neuro: Other (Generalized fatigue and lethargy) Psych/Mental Status: Mental Status NL, Mood NL Results Lab Laboratory Tests 09/07/19 05:15 A/P-Cardiology Admission Diagnosis Hyponatremia Metastatic lung cancer Coronary artery disease Debility Assessment/Plan Hyponatremia, 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 Generalized weakness, loss of energy. Small intracranial lesion, questionable small bleed versus metastases. Currently anticoagulation is on hold, I will restart Eliquis, especially with th e recent pulmonary embolism Slight elevation in troponin, current conservative management CTA of the chest from 07-29-2019 showed - Small burden of pulmonary emboli to the subsegmental branches of the right lung. No evidence of right heart strain or pulmonary infarct. Findings suggestive of disease progression with increase in size and number of lung nodules and increase in size of the metastatic lesions throughout the liver. Coronary artery disease, status post cardiac catheterization on October 16, 2014 which showed mild disease nonobstructive disease with normal LV function, severe pulmonary hypertension Metastatic adenocarcinoma of the lung, stage IV, followed and managed by Dr. Wick History of DVT in 1975 Previously on OAC with Eliquis that is currently being held by the Medical Service History of Graves' disease, followed and managed by primary care physician Clinical Quality Measures DVT/VTE Risk/Contraindication: Risk Factor Score Per Nursin RFS Level Per Nursing on Admit: 4+=Very High CHANEL TOMLINSON MD Sep 07, 2019 1:17 pm
[2019-09-07] MEDS ORDERED: FURO-125 PO (13:20)
[2019-09-07 15:35] VITALS: BP 157/87
--- NOTE | 2019-09-07 16:31 | NUR ---
Arrangements completed for pt transfer bck to [facility] [place].Pt and son pleased with plan. discharge orders and scripts as well as medical reports given to [facility] [place] staff.
== END 2019-09-07 15:35 | DRG 643 ==
LOC: EDUNIT# 11:17 → ER 11:18 → ICU 13:22 → 4TH 09-02 16:40
PROVIDERS: ADMIT Internal Medicine; ATTEND Internal Medicine
DX: E22.2 Syndrome of inappropriate secretion of antidiuretic hormone (principal); I50.31 Acute diastolic (congestive) heart failure; A41.9 Sepsis, unspecified organism; J18.9 Pneumonia, unspecified organism; C34.90 Malignant neoplasm of unspecified part of unspecified bronchus or lung; C79.31 Secondary malignant neoplasm of brain; C78.7 Secondary malignant neoplasm of liver and intrahepatic bile duct; I11.0 Hypertensive heart disease with heart failure; R79.89 Other specified abnormal findings of blood chemistry; R07.9 Chest pain, unspecified; Z66 Do not resuscitate; I25.10 Atherosclerotic heart disease of native coronary artery without angina pectoris; I08.2 Rheumatic disorders of both aortic and tricuspid valves; I27.23 Pulmonary hypertension due to lung diseases and hypoxia; E89.0 Postprocedural hypothyroidism; H35.30 Unspecified macular degeneration; K21.9 Gastro-esophageal reflux disease without esophagitis; R01.1 Cardiac murmur, unspecified; Z86.711 Personal history of pulmonary embolism; Z99.81 Dependence on supplemental oxygen; Z86.718 Personal history of other venous thrombosis and embolism; Z86.73 Personal history of transient ischemic attack (TIA), and cerebral infarction without residual deficits; Z92.3 Personal history of irradiation; Y95 Nosocomial condition; R53.81 Other malaise; Z90.710 Acquired absence of both cervix and uterus; Z87.440 Personal history of urinary (tract) infections
CPT/HCPCS: 36415; 36600; 51702; 70450; 71045; 80048; 80053; 81000; 82805; 82962; 83605; 83735; 83880; 84100; 84145; 84484; 85025; 86141; 87040; 87081; 87088; 87804; 93005

== ENCOUNTER → 2019-09-01 | Outpatient (CLI) | payer MEDICAID ==
[~2019-09-01] MED LIST changes: +CEPH500T PO; +GUAI-977 PO; +MAG30ORA2 PO; +NF-NACL1GT PO; +NITR100C10 PO; +POLY17PO6 PO; +SOLI10TA7 PO
[2019-09-01 09:04] LABS: BUN/CREATININE RATIO 15; CALCIUM 9.4 MG/DL (8.5-10.1); CARBON DIOXIDE 21 MMOL/L (21-32); CHLORIDE 85 MMOL/L (98-107); CREATININE SERUM 0.72 MG/DL (0.60-1.30); GFR ESTIMATED > 60; GLUCOSE 129 MG/DL (70-105); POTASSIUM 4.8 MMOL/L (3.6-5.0)
[2019-09-01 09:32] LABS: SODIUM 120 MMOL/L (135-145)
== END ==
LOC: LABNPT 08:41
PROVIDERS: ATTEND Internal Medicine
DX: E87.1 Hypo-osmolality and hyponatremia (principal)
CPT/HCPCS: 80048